=== PATIENT | female | born 1995 | race Caucasian/White ===

== ENCOUNTER → 2021-10-29 | Outpatient (CLI) | payer OTHER, SELFPAY ==
[2021-10-29 08:25] LABS: Hemoglobin A1c 5.1 % (3.8-5.6)
[2021-10-29 08:28] LABS: ALB/GLOB Ratio 0.7 RATIO (0.9-2.4); AST(SGOT) 18 U/L (15-37); Alanine Aminotransfer ALT/SGPT 33 U/L (13-56); Albumin, Serum 3.1 g/dL (3.2-5.0); Alkaline Phosphatase 86 U/L (45-117); Anion Gap 7 (5-15); BUN 12 mg/dL (7-18); BUN/Creat Ratio 18.4 RATIO (10-20); Calcium,Total 8.6 mg/dL (8.5-10.1); Chloride 106 mmol/L (98-107); Cholesterol 227 mg/dL (200); Creatinine, Serum 0.65 mg/dL (0.55-1.02); EST Glomerular Filtration Rate 117 mL/min (>60); Est Glom Filt Rate - Afr Amer 142 mL/min (>60); Globulin 4.3 g/dL (2.2-4.2); Glucose 98 mg/dL (74-106); High Density Lipoprotein 51 mg/dL; Potassium 3.9 mmol/L (3.5-5.1); Protein, Total 7.4 g/dL (6.4-8.2); Sodium Level 136 mmol/L (136-145); Thyroid Stim Hormone (TSH) 2.85 uIU/mL (0.358-3.74); Triglycerides 214 mg/dL; Very Low Density Lipoprotein 43 mg/dL (5-40)
[2021-10-29 09:22] LABS: Vitamin B12 420 pg/mL (211-911)
== END | disposition home or self-care (01) ==
PROVIDERS: PCP Physician Assistant Medical; Referring Provider Nurse Practitioner Family; Visit Provider Nurse Practitioner Family
DX: R73.02 Impaired glucose tolerance (oral) (principal); E78.00 Pure hypercholesterolemia, unspecified
CPT/HCPCS: 36415; 80053; 80061; 82607; 83036; 84443

== ENCOUNTER 2022-05-02 07:10 | Outpatient (CLI) | payer OTHER, SELFPAY ==
[2022-05-02 08:20] LABS: Absolute Lymphocyte Count 3.18 X10^3/uL (0.83-4.51); Absolute Neutrophil Count 5.4 X10^3/uL (2.0-7.7); Basophil# 0.08 X10^3/uL; Basophil% 0.9 % (0-1); Eosinophil# 0.25 X10^3/uL; Eosinophils% 2.7 % (0-5); Hemoglobin 12.5 g/dL (12.0-15.0); Lymphocyte # 3.18 X10^3/ul (0.83-4.51); Mean Corp Hgb Conc 32.9 g/dL (32-36); Mean Corpuscular Hgb 26.5 pg (27.0-32.0); Mean Corpuscular Volume 80.7 fL (81-99); Mean Platelet Vol. 11.4 fl (6.2-12.0); Monocyte# 0.44 X10^3/uL; Monocyte% 4.7 % (0-10); NRBC Flagged by Analyzer 0 % (0-5); Neutrophil # 5.37 X10^3/uL (2.7-7.7); Neutrophil % 57.5 % (47-70); Platelet Count 347 K/mm3 (150-450); RBC Distribution Width CV 13.5 % (11.6-14.6); RBC Distribution Width SD 39.4 fl (35.1-43.9); Red Blood Count 4.71 M/mm3 (4.2-5.4); White Blood Count 9.3 K/mm3 (4.4-11.0)
[2022-05-02 08:56] LABS: ALB/GLOB Ratio 0.7 RATIO (0.9-2.4); AST(SGOT) 8 U/L (15-37); Alanine Aminotransfer ALT/SGPT 21 U/L (13-56); Albumin, Serum 2.8 g/dL (3.2-5.0); Alkaline Phosphatase 74 U/L (45-117); Anion Gap 8 (5-15); BUN 13 mg/dL (7-18); BUN/Creat Ratio 23.1 RATIO (10-20); Calcium,Total 8.4 mg/dL (8.5-10.1); Chloride 104 mmol/L (98-107); Cholesterol 235 mg/dL (200); Creatinine, Serum 0.56 mg/dL (0.55-1.02); EST Glomerular Filtration Rate 138 mL/min (>60); Est Glom Filt Rate - Afr Amer 167 mL/min (>60); Ferritin 31 ng/mL (8-252); Globulin 4.2 g/dL (2.2-4.2); Glucose 98 mg/dL (74-106); High Density Lipoprotein 59 mg/dL; Iron 83 ug/dL (50-170); Iron Binding Capacity,Total 388 ug/dL (250-450); Potassium 3.8 mmol/L (3.5-5.1); Sodium Level 138 mmol/L (136-145); Triglycerides 169 mg/dL; Very Low Density Lipoprotein 34 mg/dL (5-40)
[2022-05-02 08:59] LABS: Vitamin B12 454 pg/mL (211-911)
== END 2022-05-02 23:59 | disposition home or self-care (01) ==
LOC: LAB 07:12
PROVIDERS: PCP Physician Assistant Medical; Referring Provider Physician Assistant Medical; Visit Provider Physician Assistant Medical
DX: E78.00 Pure hypercholesterolemia, unspecified (principal); I10 Essential (primary) hypertension; E53.8 Deficiency of other specified B group vitamins; R79.0 Abnormal level of blood mineral
CPT/HCPCS: 36415; 80053; 80061; 82607; 82728; 83540; 83550; 85025

== ENCOUNTER 2022-09-03 19:11 | Emergency (ER) | payer OTHER, SELFPAY ==
[2022-09-03 19:12] VITALS: BP 162/107; PULSE 110; RESP 20; TEMP 36.4; O2SAT 97; BMI 60.0
[2022-09-03] MEDS: Mag Hydrox/Al Hydrox/Simeth 30 ML UDC PO (21:02)
[2022-09-03] MEDS: Ondansetron 4 MG/2 ML Vial IV (21:03)
[2022-09-03] MEDS: 0.9% Normal Saline 1,000 ML 150 ML IV (21:03)
[2022-09-03 21:05] LABS: Absolute Lymphocyte Count 2.15 X10^3/uL (0.83-4.51); Absolute Neutrophil Count 3.1 X10^3/uL (2.0-7.7); Basophil# 0.03 X10^3/uL; Basophil% 0.5 % (0-1); Eosinophil# 0.23 X10^3/uL; Eosinophils% 3.8 % (0-5); Hematocrit 37.3 % (37-47); Hemoglobin 12.4 g/dL (12.0-15.0); Lymphocyte # 2.15 X10^3/ul (0.83-4.51); Lymphocyte % 35.7 % (19-41); Mean Corp Hgb Conc 33.2 g/dL (32-36); Mean Corpuscular Hgb 26.9 pg (27.0-32.0); Mean Corpuscular Volume 80.9 fL (81-99); Mean Platelet Vol. 10.9 fl (6.2-12.0); Monocyte# 0.53 X10^3/uL; Monocyte% 8.8 % (0-10); NRBC Flagged by Analyzer 0 % (0-5); Neutrophil # 3.07 X10^3/uL (2.7-7.7); Platelet Count 272 K/mm3 (150-450); RBC Distribution Width CV 13.4 % (11.6-14.6); RBC Distribution Width SD 39.2 fl (35.1-43.9); Red Blood Count 4.61 M/mm3 (4.2-5.4)
[2022-09-03 21:11] VITALS: RESP 18
[2022-09-03 21:25] LABS: Internal QC Validated? YES +Cl - CLEAR BKGD; Pregnancy, Serum, hCG Quali. NEGATIVE Negative
[2022-09-03 21:26] LABS: AST(SGOT) 38 U/L (15-37); Alanine Aminotransfer ALT/SGPT 56 U/L (13-56); Albumin, Serum 2.9 g/dL (3.2-5.0); Alkaline Phosphatase 83 U/L (45-117); Anion Gap 6 (5-15); BUN 11 mg/dL (7-18); BUN/Creat Ratio 17.1 RATIO (10-20); Bilirubin, Direct 0.05 mg/dL (0.00-0.30); Calcium,Total 8.3 mg/dL (8.5-10.1); Chloride 110 mmol/L (98-107); Creatinine, Serum 0.64 mg/dL (0.55-1.02); EST Glomerular Filtration Rate 118 mL/min (>60); Est Glom Filt Rate - Afr Amer 143 mL/min (>60); Estimated Creatinine Clearance 119.86 ml/min; Globulin 3.9 g/dL (2.2-4.2); Glucose 87 mg/dL (74-106); Lipase 51 U/L (73-393); Potassium 3.7 mmol/L (3.5-5.1); Protein, Total 6.8 g/dL (6.4-8.2); Sodium Level 140 mmol/L (136-145)
--- NOTE | 2022-09-03 22:49 | EDS_ITS ---
HPI History of Present Illness Chief Complaint: Nausea/Vomiting/Diarrhea Informant: patient Onset/Context/Timing Onset: Days (4 days) Current Severity: Moderate Maximum Severity: Moderate Narrative Narrative: Patient presents with epigastric abdominal pain for the past 4 days along with diarrhea. She had some nausea but no vomiting. No fever noted. She is curren tly on omeprazole twice a day for reflux and states this is not helping. [facility] Medical History Acute bronchitis, unspecified Influenza A Home Medications dicyclomine 10 mg capsule 10 mg PO TID #30 caps 02/28/22 [Rx Last Taken Unknown] amoxicillin 875 mg-potassium clavulanate 125 mg tablet 1 tab PO BID #20 tabs 05/18/22 [Rx Last Taken Unknown] prednisone 10 mg tablet 10 mg PO BID #10 tabs 05/18/22 [Rx Last Taken Unknown] fluconazole 150 mg tablet 150 mg PO ONCE #1 TAB 06/01/22 [Rx Last Taken Unknown] metoclopramide HCl 5 mg tablet (Reglan) 5 mg PO TID PRN nausea and vomiting #30 tabs 09/02/22 [Rx Last Taken Unknown] ondansetron HCl 4 mg tablet 4 mg PO Q8H PRN nausea and vomiting #90 tabs 09/02/22 [Rx Last Taken Unknown] Allergy/AdvReac Type Severity Reaction Status Date / Time No Known Allergies Allergy Unverified 09/03/22 19:13 Surgical History History of appendectomy Social History Smoking Status: Never smoker ROS ROS ED Constitutional Constitutional ED: Denies chills or fever(s) Eyes Eyes: Denies change in vision or discharge from eye(s) ENT ENT ED: Denies discharge from eye(s), rhinorrhea or sore throat Cardiovascular Cardiovascular: Denies chest pain or palpitations Respiratory/Chest Respiratory/Chest: Denies cough or dyspnea Gastrointestinal Gastrointestinal: Reports abdominal pain, diarrhea and nausea; Denies vomiting Genitourinary Genitourinary ED: Denies dysuria Musculoskeletal Musculoskeletal: Denies back pain or extremity pain Integumentary Denies Abrasions or rash Neurologic Neurologic: Denies headache(s) or weakness Psychiatric Psychiatric: Denies anxiety or depression Allergic/Immunologic Allergic/Immunologic ED: Denies lip swelling or urticaria EXAM Physical Exam Const Vital Signs: 09/03/22 19:12 09/03/22 21:11 Temperature 97.6 F L Temperature Source Temporal Pulse Rate 110 H Respiratory Rate 20 H 18 Blood Pressure 162/107 H Blood Pressure Mean 125 Pulse Ox 97 Oxygen Delivery Method Room Air Positive well nourished and well developed General Appearance ED: well developed HEENT Reports normocephalic and head/scalp atraumatic Eyes PERRL and EOMs intact bilaterally Neck supple Chest Wall inspection of chest normal and palpation of chest normal Resp normal respiratory effort and clear to auscultation bilaterally Cardio regular rate and regular rhythm GI GI Narrative: Epigastric tenderness to palpation. No guarding or rebound. Hypoactive but present bowel sounds are noted. Palpation: soft Extremity normal to inspection Neuro oriented x3 and no sensory deficits noted Sensorium / Orientation: alert Motor Exam: strength 5/5 throughout Psych mental status grossly normal Skin no rashes or lesions noted MDM MDM MDM Narrative Medical decision making narrative: Patient is given Zofran for nausea along with a GI cocktail. Labwork obtained to evaluate for leukocytosis, anemia, and electrolyte derangement. Lab Data Attestation: I reviewed the patient's lab results. Labs: Laboratory Results - last 24 hr 09/03/22 09/03/22 09/03/22 20:56 20:56 20:56 WBC 6.0 RBC 4.61 Hgb 12.4 Hct 37.3 MCV 80.9 L MCH 26.9 L MCHC 33.2 RDW Std Deviation 39.2 RDW Coeff of Carey 13.4 Plt Count 272 MPV 10.9 Immature Gran % (Auto) 0.200 Neut % (Auto) 51.0 Lymph % (Auto) 35.7 [place] % (Auto) 8.8 Eos % (Auto) 3.8 Baso % (Auto) 0.5 Absolute Neuts (auto) 3.1 Absolute Lymphs (auto) 2.15 Nucleated RBC % 0 Sodium 140 Potassium 3.7 Chloride 110 H Carbon Dioxide 24.0 Anion Gap 6 BUN 11 Creatinine 0.64 Estim Creat Clear Calc 119.86 Est GFR (MDRD) Af Amer 143 Est GFR (MDRD) Non-Af 118 BUN/Creatinine Ratio 17.1 Glucose 87 Calcium 8.3 L Total Bilirubin 0.30 Direct Bilirubin 0.05 AST 38 H ALT 56 Alkaline Phosphatase 83 Total Protein 6.8 Albumin 2.9 L Globulin 3.9 Lipase 51 L Serum , Qual NEGATIVE Treatment and Re-Evaluation :: CBC and chemistry studies are unremarkable. LFTs and lipase normal. test is negative. Repeat evaluation patient does feel improved. She states she has some Zofran at home that she can take. She will continue her omeprazole. Discharge Plan Triage Chief Complaint: Nausea/Vomiting/Diarrhea ED Provider: Racheal Hernandez Dx/Rx/DC Orders Clinical Impression: Abdominal pain, epigastric Instructions: ED Epigastric Pain Uncertain Cause Prescriptions: No Action amoxicillin-pot clavulanate 875-125 mg tablet 1 tab PO BID Qty: 20 0RF prednisone 10 mg tablet 10 mg PO BID Qty: 10 0RF dicyclomine 10 mg capsule 10 mg PO TID Qty: 30 2RF Rx Instructions: take one to two capsules three times a day fluconazole 150 mg tablet 150 mg PO ONCE Qty: 1 0RF Rx Instructions: as a single dose metoclopramide HCl [Reglan] 5 mg tablet 5 mg PO TID PRN (Reason: nausea and vomiting) Qty: 30 2RF Rx Instructions: administer 30 minutes before meals ondansetron HCl 4 mg tablet 4 mg PO Q8H PRN (Reason: nausea and vomiting) Qty: 90 1RF Primary Care Provider: Oanh Taylor Referrals: Mark Schroeder DO [Med Staff - Active Staff] - 1-2 Weeks Oanh Taylor PA [Primary Care Provider] - 1 Week Disposition Disposition: Home, Self Care Discharge Date/Time: 09/03/22 22:58
== END 2022-09-03 22:58 | disposition home or self-care (01) ==
PROVIDERS: Emergency Provider Emergency Medicine; PCP Physician Assistant Medical; Visit Provider Emergency Medicine
DX: R10.13 Epigastric pain (principal); R19.7 Diarrhea, unspecified; R11.0 Nausea
CPT/HCPCS: 80048; 80076; 83690; 84703; 85025; 96361; 96374; 99283; J7030; A4216; J2405

== ENCOUNTER → 2022-09-16 | Outpatient (CLI) | payer OTHER, SELFPAY ==
[2022-09-16 12:18] LABS: Erythrocyte Sedimentation Rate 31 mm/hr (0-30)
[2022-09-16 12:50] LABS: LDH 178 U/L (84-246)
[2022-09-19 15:07] LABS: Endomysial Antibody IgA Negative (Negative); Immunoglobulin A 145 mg/dL (87-352); t-Transglutaminase IgA <2 U/mL (0-3)
[2022-09-21 08:11] LABS: Cytoplasmic Ab (C-ANCA) <1:20 titer (Neg:<1:20); Immunoglobulin A 142 mg/dL (87-352); Immunoglobulin E 27 IU/mL (6-495); Immunoglobulin G 1007 mg/dL (586-1602); Immunoglobulin M 87 mg/dL (26-217); Perinuclear Ab (P-ANCA) <1:20 titer (Neg:<1:20)
[2022-09-21 09:09] LABS: Anti-Centromere B Ab <0.2 AI (0.0-0.9); Anti-Chromatin <0.2 AI (0.0-0.9); Anti-Jo <0.2 AI (0.0-0.9); Anti-Scleroderma-70 AB <0.2 AI (0.0-0.9); Anti-dsDNA Ab <1 IU/mL (0-9); Beef <0.10 kU/L (Class 0); Chocolate <0.10 kU/L (Class 0); Corn <0.10 kU/L (Class 0); Egg, Whole <0.10 kU/L (Class 0); Milk (Cow) <0.10 kU/L (Class 0); Peanut <0.10 kU/L (Class 0); Pork <0.10 kU/L (Class 0); RNP Ab <0.2 AI (0.0-0.9); SJOGREN'S Anti-SS-A test < 0.2 AI (0.0-0.9); SJOGREN'S Anti-SS-B test < 0.2 AI (0.0-0.9); Smith Ab <0.2 AI (0.0-0.9); Soybean <0.10 kU/L (Class 0); Wheat <0.10 kU/L (Class 0)
[2022-09-22 16:09] LABS: Calprotectin, Stool 66 ug/g (0-120)
[2022-09-23 00:07] LABS: H. PYLORI STOOL AG Negative (Negative); Pancreatic Elastase, Fecal > 500 (>200)
== END | disposition home or self-care (01) ==
LOC: LAB 11:57
PROVIDERS: PCP Physician Assistant Medical; Referring Provider Internal Medicine Gastroenterology; Visit Provider Internal Medicine Gastroenterology
DX: K58.9 Irritable bowel syndrome, unspecified (principal); R10.9 Unspecified abdominal pain
CPT/HCPCS: 36415; 82653; 82784; 82785; 83516; 83615; 83630; 83993; 85652; 86003; 86005; 86140; 86225; 86235; 86255; 86256; 87177; 87209; 87329; 87338; 87506

== ENCOUNTER → 2022-10-10 | Outpatient (CLI) | payer OTHER, SELFPAY ==
--- NOTE | 2022-10-10 07:01 | CT_ITS ---
STUDY: CT ABDOMEN AND PELVIS WITH CONTRAST REASON FOR EXAM: Female, 27 years old. Upper abdominal pain. RADIATION DOSAGE (If Supplied By Facility): CTDIvol = ( 17.07 ) mGy, DLP = ( 1261.41 ) mGycm TECHNIQUE: Transaxial images were obtained from the dome of the diaphragm to the symphysis pubis without oral contrast. IV 100mL Isovue-300 was administered. Sagittal and coronal images were reconstructed. Individualized dose optimization techniques were used for this CT. COMPARISON: None. FINDINGS: The visualized lung bases are unremarkable. The visualized portions of the heart are within normal limits. Normal liver. Normal gallbladder and extrahepatic biliary system. Borderline splenomegaly. Normal pancreas. Normal bilateral adrenal glands. Normal right kidney. Normal left kidney. There is a small hiatal hernia. Normal small intestine. Normal colon. There are surgical clips in the region of the appendix consistent with a prior appendectomy. Normal abdominal aorta. Normal inferior vena cava. Normal retroperitoneum. Normal urinary bladder. Small lymph nodes are seen in the inguinal regions bilaterally. Normal abdominal wall. Mild degree of degenerative changes at the L4-L5 level. CT/Abdomen/Pelvis WITH Contrast IMPRESSION: Borderline splenomegaly. No acute abnormality is seen. Electronically Signed: Miguel Angel Jara MD at 13:47 EDT ,
[2022-10-10 07:31] LABS: CREATININE FINGERSTICK 0.9 mg/dL (0.55-1.02); EGFR FINGERSTICK > 60.0000 mL/min (>60)
== END | disposition home or self-care (01) ==
LOC: CT 07:00
PROVIDERS: PCP Physician Assistant Medical; Referring Provider Internal Medicine Gastroenterology; Visit Provider Internal Medicine Gastroenterology
DX: R10.9 Unspecified abdominal pain (principal)
CPT/HCPCS: 74177; Q9967

== ENCOUNTER → 2022-10-17 | Outpatient (CLI) | payer OTHER, SELFPAY ==
[2022-10-17 16:14] LABS: Absolute Lymphocyte Count 2.26 X10^3/uL (0.83-4.51); Absolute Neutrophil Count 4.2 X10^3/uL (2.0-7.7); Basophil# 0.06 X10^3/uL; Basophil% 0.8 % (0-1); Eosinophils% 2.6 % (0-5); Hematocrit 38.3 % (37-47); Hemoglobin 12.3 g/dL (12.0-15.0); Lymphocyte # 2.26 X10^3/ul (0.83-4.51); Lymphocyte % 29.5 % (19-41); Mean Corp Hgb Conc 32.1 g/dL (32-36); Mean Corpuscular Hgb 26.5 pg (27.0-32.0); Mean Corpuscular Volume 82.5 fL (81-99); Monocyte# 0.88 X10^3/uL; Monocyte% 11.5 % (0-10); NRBC Flagged by Analyzer 0 % (0-5); Neutrophil # 4.23 X10^3/uL (2.7-7.7); Neutrophil % 55.3 % (47-70); Platelet Count 313 K/mm3 (150-450); RBC Distribution Width CV 13.4 % (11.6-14.6); RBC Distribution Width SD 40.1 fl (35.1-43.9); Red Blood Count 4.64 M/mm3 (4.2-5.4); White Blood Count 7.7 K/mm3 (4.4-11.0)
[2022-10-24 14:08] LABS: CMV Acute Antibody IgM < 30.0 AU/mL (0.0-29.9); CMV Antibody IgG < 0.60 U/mL (0.00-0.59); CMV by PCR Negative (Negative); H. Pylori Antibody (IgG) 0.15 (0.00-0.79)
== END | disposition home or self-care (01) ==
PROVIDERS: PCP Physician Assistant Medical; Referring Provider Internal Medicine Gastroenterology; Visit Provider Internal Medicine Gastroenterology
DX: R10.9 Unspecified abdominal pain (principal)
CPT/HCPCS: 36415; 85025; 86644; 86645; 86677; 87496

== ENCOUNTER → 2022-10-31 | Outpatient (CLI) | payer OTHER, SELFPAY ==
[2022-10-31 07:31] LABS: Absolute Lymphocyte Count 3.89 X10^3/uL (0.83-4.51); Basophil# 0.07 X10^3/uL; Basophil% 0.6 % (0-1); Eosinophil# 0.26 X10^3/uL; Eosinophils% 2.4 % (0-5); Hematocrit 40.5 % (37-47); Hemoglobin 13.1 g/dL (12.0-15.0); Lymphocyte # 3.89 X10^3/ul (0.83-4.51); Lymphocyte % 35.3 % (19-41); Mean Corp Hgb Conc 32.3 g/dL (32-36); Mean Corpuscular Hgb 26.6 pg (27.0-32.0); Mean Corpuscular Volume 82.3 fL (81-99); Mean Platelet Vol. 11.3 fl (6.2-12.0); Monocyte# 0.76 X10^3/uL; Monocyte% 6.9 % (0-10); NRBC Flagged by Analyzer 0 % (0-5); Neutrophil # 6.01 X10^3/uL (2.7-7.7); Neutrophil % 54.5 % (47-70); Platelet Count 324 K/mm3 (150-450); RBC Distribution Width CV 13.2 % (11.6-14.6); RBC Distribution Width SD 39.3 fl (35.1-43.9); Red Blood Count 4.92 M/mm3 (4.2-5.4)
[2022-10-31 08:27] LABS: ALB/GLOB Ratio 0.7 RATIO (0.9-2.4); AST(SGOT) 12 U/L (15-37); Alanine Aminotransfer ALT/SGPT 23 U/L (13-56); Alkaline Phosphatase 75 U/L (45-117); Anion Gap 6 (5-15); BUN 15 mg/dL (7-18); BUN/Creat Ratio 24.8 RATIO (10-20); Chloride 109 mmol/L (98-107); Cholesterol 256 mg/dL (200); EST Glomerular Filtration Rate 127 mL/min (>60); Est Glom Filt Rate - Afr Amer 154 mL/min (>60); Globulin 4.3 g/dL (2.2-4.2); Glucose 102 mg/dL (74-106); High Density Lipoprotein 45 mg/dL; Potassium 3.8 mmol/L (3.5-5.1); Protein, Total 7.3 g/dL (6.4-8.2); Sodium Level 139 mmol/L (136-145); Thyroid Stim Hormone (TSH) 1.96 uIU/mL (0.358-3.74); Triglycerides 258 mg/dL; Very Low Density Lipoprotein 52 mg/dL (5-40); Vitamin B12 503 pg/mL (211-911)
== END | disposition home or self-care (01) ==
LOC: LAB 06:30
PROVIDERS: PCP Physician Assistant Medical; Referring Provider Physician Assistant Medical; Visit Provider Physician Assistant Medical
DX: R73.02 Impaired glucose tolerance (oral) (principal); E53.8 Deficiency of other specified B group vitamins; E78.00 Pure hypercholesterolemia, unspecified; I10 Essential (primary) hypertension
CPT/HCPCS: 36415; 80053; 80061; 82607; 83036; 84443; 85025

== ENCOUNTER → 2022-11-09 | Outpatient (CLI) | payer OTHER, SELFPAY ==
--- NOTE | 2022-11-09 09:51 | NM_ITS ---
CLINICAL: 27-year-old female with history of abdominal pain. RADIONUCLIDE HEPATOBILIARY SCINTIGRAPHY COMPARISON: CT of the abdomen-pelvis report 10/10/2022 FINDINGS: Following the intravenous administration of 5.8 mCi of 99m Tc Mebrofenin, hepatobiliary images reveal:. 1. Relatively prompt and homogeneous radiopharmaceutical concentration is noted by a normal sized liver. No parenchymal defects are identified. 2. Gallbladder activity is identified at 45 minutes post radiopharmaceutical administration. 3. Small intestinal tract is observed at 10 minutes following tracer injection. 4. Washout of the radiopharmaceutical by the hepatic parenchyma appears qualitatively normal. Cholecystokinin (0.02 ug/kg) was administered intravenously over a 30-minute period. The post CCK gallbladder ejection fraction calculated at 20 minutes following Cholecystokinin administration was noted to be 52 % (normal greater than 35%). During 30 minutes of post CCK imaging, there is scintigraphic evidence of refilling of the gallbladder. NM/Hepatobilliary Img w/Pharm Int IMPRESSION: 1. A gallbladder ejection fraction calculated to be greater than 35% following the administration of Cholecystokinin makes the probability of functional hepatobiliary disease (gallbladder dyskinesia) and/or organic hepatobiliary disease (chronic acalculous cholecystitis and/or cystic duct syndrome) to be low. (Naye Byers et al, Journal of Nuclear Medicine 32:1695, 1991). 2. A normal gallbladder ejection fraction with refilling of the gallbladder following CCK administration may represent the presence of Sphincter of Oddi dysfunction. Correlation with Sphincter of Oddi manometry may be of benefit. (Kaiden and Kaiden, J Nucl Med 38:1824, 1997). Electronically Signed: Mitch Barrientos, at 21:14 EDT ,
== END | disposition home or self-care (01) ==
LOC: NM 09:50
PROVIDERS: PCP Physician Assistant Medical; Referring Provider Internal Medicine Gastroenterology; Visit Provider Internal Medicine Gastroenterology
DX: R10.9 Unspecified abdominal pain (principal)
CPT/HCPCS: 78227; A9537; J2805

== ENCOUNTER → 2023-05-17 | Outpatient (CLI) | payer OTHER, SELFPAY ==
[2023-05-17 07:06] LABS: Absolute Lymphocyte Count 2.22 X10^3/uL (0.83-4.51); Absolute Neutrophil Count 7.3 X10^3/uL (2.0-7.7); Basophil# 0.06 X10^3/uL; Basophil% 0.6 % (0-1); Eosinophils% 1.9 % (0-5); Hematocrit 37.4 % (37-47); Lymphocyte # 2.22 X10^3/ul (0.83-4.51); Lymphocyte % 21.6 % (19-41); Mean Corp Hgb Conc 32.1 g/dL (32-36); Mean Corpuscular Volume 81.1 fL (81-99); Mean Platelet Vol. 10.7 fl (6.2-12.0); Monocyte# 0.45 X10^3/uL; Monocyte% 4.4 % (0-10); NRBC Flagged by Analyzer 0 % (0-5); Neutrophil % 71.2 % (47-70); Platelet Count 327 K/mm3 (150-450); RBC Distribution Width CV 13.5 % (11.6-14.6); RBC Distribution Width SD 39.6 fl (35.1-43.9); Red Blood Count 4.61 M/mm3 (4.2-5.4); White Blood Count 10.3 K/mm3 (4.4-11.0)
[2023-05-17 07:24] LABS: ALB/GLOB Ratio 0.9 RATIO (0.9-2.4); AST(SGOT) 20 U/L (15-37); Alanine Aminotransfer ALT/SGPT 34 U/L (13-56); Albumin, Serum 3.6 g/dL (3.2-5.0); Alkaline Phosphatase 92 U/L (45-117); Anion Gap 1 (5-15); BUN 10 mg/dL (7-18); Calcium,Total 8.8 mg/dL (8.5-10.1); Chloride 106 mmol/L (98-107); Cholesterol 198 mg/dL (200); Creatinine, Serum 0.62 mg/dL (0.55-1.02); EST Glomerular Filtration Rate 122 mL/min (>60); Est Glom Filt Rate - Afr Amer 147 mL/min (>60); Ferritin 22 ng/mL (8-252); Globulin 3.8 g/dL (2.2-4.2); Glucose 119 mg/dL (74-106); High Density Lipoprotein 45 mg/dL; Iron 52 ug/dL (50-170); Iron Binding Capacity,Total 352 ug/dL (250-450); PERCENT IRON SATURATION 14.8 % (15.0-55.0); Potassium 4.3 mmol/L (3.5-5.1); Protein, Total 7.4 g/dL (6.4-8.2); Sodium Level 137 mmol/L (136-145); Triglycerides 86 mg/dL; Very Low Density Lipoprotein 17 mg/dL (5-40)
[2023-05-17 08:23] LABS: Hemoglobin A1c 5.1 % (3.8-5.6)
[2023-05-17 08:34] LABS: Vitamin B12 397 pg/mL (211-911)
== END | disposition home or self-care (01) ==
LOC: LAB 06:48
PROVIDERS: PCP Physician Assistant Medical; Referring Provider Physician Assistant Medical; Visit Provider Physician Assistant Medical
DX: R73.02 Impaired glucose tolerance (oral) (principal); E53.8 Deficiency of other specified B group vitamins; E78.00 Pure hypercholesterolemia, unspecified; R79.0 Abnormal level of blood mineral
CPT/HCPCS: 36415; 80053; 80061; 82607; 82728; 83036; 83540; 83550; 83735; 85025

== ENCOUNTER → 2023-12-14 | Outpatient (CLI) | payer OTHER, SELFPAY ==
[2023-12-14 07:50] LABS: Absolute Lymphocyte Count 2.54 X10^3/uL (0.83-4.51); Absolute Neutrophil Count 5.9 X10^3/uL (2.0-7.7); Basophil# 0.06 X10^3/uL; Basophil% 0.6 % (0-1); Eosinophil# 0.18 X10^3/uL; Eosinophils% 1.9 % (0-5); Hematocrit 37.7 % (37-47); Hemoglobin 11.9 g/dL (12.0-15.0); Lymphocyte # 2.54 X10^3/ul (0.83-4.51); Lymphocyte % 27.5 % (19-41); Mean Corp Hgb Conc 31.6 g/dL (32-36); Mean Corpuscular Hgb 24.9 pg (27.0-32.0); Mean Platelet Vol. 11.4 fl (6.2-12.0); Monocyte# 0.49 X10^3/uL; Monocyte% 5.3 % (0-10); NRBC Flagged by Analyzer 0 % (0-5); Neutrophil # 5.92 X10^3/uL (2.7-7.7); Neutrophil % 64.2 % (47-70); Platelet Count 315 K/mm3 (150-450); RBC Distribution Width SD 40.3 fl (35.1-43.9); Red Blood Count 4.77 M/mm3 (4.2-5.4); White Blood Count 9.2 K/mm3 (4.4-11.0)
[2023-12-14 08:23] LABS: Vitamin B12 339 pg/mL (211-911)
[2023-12-14 08:29] LABS: ALB/GLOB Ratio 0.8 RATIO (0.9-2.4); AST(SGOT) 12 U/L (15-37); Alanine Aminotransfer ALT/SGPT 22 U/L (13-56); Albumin, Serum 3.2 g/dL (3.2-5.0); Alkaline Phosphatase 76 U/L (45-117); Anion Gap 7 (5-15); BUN 10 mg/dL (7-18); BUN/Creat Ratio 16.3 RATIO (10-20); Calcium,Total 8.6 mg/dL (8.5-10.1); Chloride 106 mmol/L (98-107); Cholesterol 223 mg/dL (200); Creatinine, Serum 0.62 mg/dL (0.55-1.02); EST Glomerular Filtration Rate 123 mL/min (>60); Est Glom Filt Rate - Afr Amer 149 mL/min (>60); Ferritin 10 ng/mL (8-252); Glucose 109 mg/dL (74-106); High Density Lipoprotein 47 mg/dL; Iron 51 ug/dL (50-170); Iron Binding Capacity,Total 429 ug/dL (250-450); PERCENT IRON SATURATION 11.9 % (15.0-55.0); Potassium 3.9 mmol/L (3.5-5.1); Protein, Total 7.2 g/dL (6.4-8.2); Sodium Level 138 mmol/L (136-145); T4 Free Direct 1.06 ng/dL (0.76-1.46); Thyroid Stim Hormone (TSH) 2.68 uIU/mL (0.358-3.74); Triglycerides 144 mg/dL; Very Low Density Lipoprotein 29 mg/dL (5-40)
[2023-12-14 17:07] LABS: Hemoglobin A1c 5.2 % (3.8-5.6)
== END | disposition home or self-care (01) ==
LOC: LAB 06:49
PROVIDERS: PCP Physician Assistant Medical; Referring Provider Physician Assistant Medical; Visit Provider Physician Assistant Medical
DX: E78.00 Pure hypercholesterolemia, unspecified (principal); R73.02 Impaired glucose tolerance (oral); R79.0 Abnormal level of blood mineral; R79.89 Other specified abnormal findings of blood chemistry
CPT/HCPCS: 36415; 80053; 80061; 82607; 82728; 83036; 83540; 83550; 83735; 84439; 84443; 85025

== ENCOUNTER → 2024-06-17 | Outpatient (CLI) | payer OTHER, SELFPAY ==
[2024-06-17 06:54] LABS: Absolute Neutrophil Count 6.9 X10^3/uL (2.0-7.7); Basophil# 0.05 X10^3/uL; Basophil% 0.5 % (0-1); Eosinophil# 0.23 X10^3/uL; Eosinophils% 2.2 % (0-5); Hematocrit 37.3 % (37-47); Hemoglobin 12.2 g/dL (12.0-15.0); Lymphocyte % 26.5 % (19-41); Mean Corp Hgb Conc 32.7 g/dL (32-36); Mean Corpuscular Hgb 26.5 pg (27.0-32.0); Mean Corpuscular Volume 80.9 fL (81-99); Mean Platelet Vol. 11.3 fl (6.2-12.0); Monocyte# 0.51 X10^3/uL; Monocyte% 4.8 % (0-10); NRBC Flagged by Analyzer 0 % (0-5); Neutrophil # 6.94 X10^3/uL (2.7-7.7); Neutrophil % 65.6 % (47-70); Platelet Count 300 K/mm3 (150-450); RBC Distribution Width CV 13.7 % (11.6-14.6); Red Blood Count 4.61 M/mm3 (4.2-5.4); White Blood Count 10.6 K/mm3 (4.4-11.0)
[2024-06-17 07:22] LABS: ALB/GLOB Ratio 0.8 RATIO (0.9-2.4); AST(SGOT) 9 U/L (15-37); Alanine Aminotransfer ALT/SGPT 16 U/L (13-56); Albumin, Serum 3.1 g/dL (3.2-5.0); Alkaline Phosphatase 95 U/L (45-117); Anion Gap 5 (5-15); BUN 13 mg/dL (7-18); BUN/Creat Ratio 19.7 RATIO (10-20); Calcium,Total 8.9 mg/dL (8.5-10.1); Chloride 107 mmol/L (98-107); Cholesterol 228 mg/dL (200); Creatinine, Serum 0.66 mg/dL (0.55-1.02); EST Glomerular Filtration Rate 113 mL/min (>60); Est Glom Filt Rate - Afr Amer 137 mL/min (>60); Ferritin 19 ng/mL (8-252); Globulin 3.8 g/dL (2.2-4.2); Glucose 113 mg/dL (74-106); High Density Lipoprotein 52 mg/dL; Iron 64 ug/dL (50-170); Iron Binding Capacity,Total 408 ug/dL (250-450); Magnesium 1.9 mg/dL (1.6-2.6); PERCENT IRON SATURATION 15.7 % (15.0-55.0); Protein, Total 6.9 g/dL (6.4-8.2); Sodium Level 139 mmol/L (136-145); Triglycerides 170 mg/dL; Very Low Density Lipoprotein 34 mg/dL (5-40)
[2024-06-17 07:52] LABS: Hemoglobin A1c 5.4 % (3.8-5.6)
[2024-06-17 08:46] LABS: Vitamin B12 683 pg/mL (211-911)
== END | disposition home or self-care (01) ==
LOC: LAB 06:32
PROVIDERS: PCP Physician Assistant Medical; Referring Provider Physician Assistant Medical; Visit Provider Physician Assistant Medical
DX: R79.89 Other specified abnormal findings of blood chemistry (principal); I10 Essential (primary) hypertension; R73.02 Impaired glucose tolerance (oral); R79.0 Abnormal level of blood mineral; E78.00 Pure hypercholesterolemia, unspecified
CPT/HCPCS: 36415; 80053; 80061; 82607; 82728; 83036; 83540; 83550; 83735; 85025

== ENCOUNTER 2024-07-22 17:19 | Inpatient (IN) | payer OTHER, SELFPAY ==
[2024-07-22] VITALS (19 sets, daily range): BP systolic 97–193; BP diastolic 71–169; PULSE 66–156; RESP 15–22; TEMP 36.7–36.8; O2SAT 96–99; BMI 62.9; BMI 62.8
--- NOTE | 2024-07-22 17:24 | EKG12_ITS ---
Test Reason : PALPS Blood Pressure : */* mmHG Vent. Rate : 164 BPM Atrial Rate : * BPM P-R Int : * ms QRS Dur : 74 ms QT Int : 266 ms P-R-T Axes : * 37 17 degrees QTcB Int : 439 ms Critical Test Result: High HR Atrial fibrillation with rapid ventricular response with premature ventricular or aberrantly conducted complexes Nonspecific ST abnormality Abnormal ECG Confirmed by Danial Hernández ([id number]), web content editor JUAN PABLO CARLSON ([id number]) on 07/24/2024 8:03:56 AM Referred By: Confirmed By: Danial Hernández
--- NOTE | 2024-07-22 17:42 | RAD_ITS ---
PROCEDURE: Portable upright chest radiograph, one view REASON FOR EXAM: Chest pain TECHNIQUE: Portable upright chest radiograph was obtained. COMPARISON: None. FINDINGS: The cardiomediastinal silhouette is within normal limits. Monitoring leads overlie the chest. Bones are intact. Mild elevation right hemidiaphragm. No focal airspace consolidation, pneumothorax, or pleural effusion. The left retrocardiac region is not well evaluated. RAD/Chest 1 View (Portable) IMPRESSION: No definite acute cardiopulmonary process. If there is persistent pain or clin ical concern, short-term follow-up chest CT evaluation may be considered. Reading Location: [facility]
[2024-07-22 17:44] LABS: Absolute Lymphocyte Count 4.31 X10^3/uL (0.83-4.51); Absolute Neutrophil Count 6.7 X10^3/uL (2.0-7.7); Basophil# 0.07 X10^3/uL; Basophil% 0.6 % (0-1); Eosinophil# 0.23 X10^3/uL; Eosinophils% 1.9 % (0-5); Hematocrit 41.1 % (37-47); Hemoglobin 13.5 g/dL (12.0-15.0); Lymphocyte # 4.31 X10^3/ul (0.83-4.51); Lymphocyte % 35.9 % (19-41); Mean Corp Hgb Conc 32.8 g/dL (32-36); Mean Corpuscular Hgb 26.3 pg (27.0-32.0); Mean Corpuscular Volume 80.1 fL (81-99); Mean Platelet Vol. 11.5 fl (6.2-12.0); Monocyte# 0.67 X10^3/uL; Monocyte% 5.6 % (0-10); NRBC Flagged by Analyzer 0 % (0-5); Neutrophil # 6.67 X10^3/uL (2.7-7.7); Neutrophil % 55.7 % (47-70); Platelet Count 382 K/mm3 (150-450); RBC Distribution Width CV 13.9 % (11.6-14.6); RBC Distribution Width SD 40.4 fl (35.1-43.9); Red Blood Count 5.13 M/mm3 (4.2-5.4)
[2024-07-22 17:53] LABS: Anion Gap 8 (5-15); BUN 11 mg/dL (7-18); BUN/Creat Ratio 15.3 RATIO (10-20); Calcium,Total 9.3 mg/dL (8.5-10.1); Chloride 106 mmol/L (98-107); Creatinine, Serum 0.72 mg/dL (0.55-1.02); EST Glomerular Filtration Rate 102 mL/min (>60); Est Glom Filt Rate - Afr Amer 124 mL/min (>60); Estimated Creatinine Clearance 188.93 ml/min; Glucose 89 mg/dL (74-106); Potassium 3.9 mmol/L (3.5-5.1); Sodium Level 137 mmol/L (136-145); Troponin-I HS (w/2H Reflex) 7 pg/mL (3.0-54.0)
[2024-07-22] MEDS: Metoprolol Tartrate 5 MG/5 ML Vial IV ×2 (17:54→18:35)
--- NOTE | 2024-07-22 18:03 | CT_ITS ---
PROCEDURE: CT angiogram of the chest with IV contrast. REASON FOR EXAM: Atrial fibrillation, shortness of breath. TECHNIQUE: After the intravenous administration of 100 cc Isovue 370 IV contrast, contiguous axial CT images were obtained through the chest. Sagittal and coronal reformats were created. Sagittal and coronal reformats were created. Maximum intensity projection images were created and reviewed. COMPARISON: Chest radiograph from the same day. No prior chest CT. FINDINGS: Mild elevation right hemidiaphragm. There are mild/moderate degenerative changes in the mid to lower thoracic spine. Bones of the thorax otherwise intact. No displaced rib fractures. Included upper abdominal structures show no specific abnormality. Heart is not enlarged. No sizable pericardial effusion. Thoracic aorta normal in caliber without gross evidence for dissection. Origins of the arch vessels appear patent. The included thyroid and breast tissue are unremarkable. No thoracic adenopathy. No pulmonary arterial filling defect. Central airway is clear. No focal airspace consolidation, pneumothorax, or pleural effusion. Evaluation of the lungs is limited due to respiratory artifact. No dominant pulmonary parenchymal nodule. CT/CTA Chest W/WO Contrast IMPRESSION: No acute findings in the chest. No pulmonary embolism or evidence of thoracic aortic dissection. Lungs are grossly clear, although evaluation is limited due to respiratory hola on. No thoracic adenopathy. One or more dose reduction techniques were used (e.g., Automated exposure contr ol, adjustment of the mA and/or kV according to patient size, use of iterative reconstruction technique). Reading Location: [facility]
--- NOTE | 2024-07-22 18:39 | EX.ED.DYSGE1 ---
HPI History of Present Illness Chief Complaint: Palpitations Narrative Narrative: Patient is a 21-year-old female with past medical history of hypertension who presented to the emergency department with a chief complaint of palpitations and shortness of breath. Patient states that over the weekend she had the sensation that her heart was racing in her chest and states that it has been persistent and feels that has gotten worse prompting her to come here for the valuation management. Patient states that she does have some shortness of breath with exertion. Patient states that she is on control denies any other hormonal replacement therapies. Patient states that she did travel to a concert over the weekend to [place] and then recently again to [place]. Patient denies any history of blood clots. [facility] Medical History Acute bronchitis, unspecified Influenza A Home Medications ?Medication ?Instructions ?Recorded ?Last Taken ?Type buspirone 30 mg tablet 30 mg PO BID 07/22/24 Unknown History clotrimazole-betamethasone 1 1 applic topical BID PRN PRN rash 07/22/24 Unknown History %-0.05 % topical cream cyanocobalamin (vitamin B-12) 1,000 mcg PO DAILY 07/22/24 Unknown History 1,000 mcg tablet lisdexamfetamine 30 mg capsule 30 mg PO DAILY 07/22/24 Unknown History losartan 50 mg tablet 50 mg PO BID 07/22/24 Unknown History omeprazole 20 mg capsule,delayed 20 mg PO BID 07/22/24 Unknown History release vilazodone 20 mg tablet 20 mg PO DAILY 07/22/24 Unknown History Allergy/AdvReac Type Severity Reaction Status Date / Time No Known Allergies Allergy Verified 07/22/24 17:20 Surgical History History of appendectomy Social History household members: significant other housing: house Smoking Status: Never smoker ROS ROS ED ROS Narrative Constitutional: Denies fevers, chills, lightness, dizziness Eyes: Denies change in vision double vision blurry vision Cardiovascular: Denies chest pain complains of palpitations as noted above Respiratory: Complains of shortness of breath denies coughing Abdomen: Denies abdominal pain nausea vomit diarrhea : Denies any urinary symptoms Neurological: Denies any numbness, weakness, tingling Musculoskeletal: Denies back pain Skin: Denies rashes or lesions EXAM Physical Exam Narrative Exam Narrative: General: Patient lying in bed rest comfortably did not appear to be in acute distress Head: Atraumatic, normocephalic Eyes: PERRL bilaterally, EOMI bilaterally, no conjunctival injection noted Neck: Soft, supple, trachea midline Cardiovascular: Patient had a irregular irregular rhythm and tachycardia noted no murmurs gallops rubs noted Respiratory: Clear to auscultation bilaterally Abdomen: No tenderness palpation Extremities: +5/5 strength noted in the bilateral upper and lower extremities no pedal edema on exam Neurological: Patient following commands knew that she was at [facility] year is 2024 Skin: Warm, dry, intact no rashes or lesions noted Const Vital Signs: 07/22/24 17:20 07/22/24 17:39 07/22/24 17:55 Temperature 98.1 F Temperature Source Oral Pulse Rate 66 156 H Respiratory Rate 16 Blood Pressure 175/158 H 193/167 H Blood Pressure Mean 163 175 Blood Pressure Source Blood Pressure Position Blood Pressure Location Pulse Ox 99 98 98 Oxygen Delivery Method Room Air Room Air 07/22/24 17:58 07/22/24 18:19 07/22/24 18:40 Temperature Temperature Source Pulse Rate 147 H 156 H 151 H Respiratory Rate 16 Blood Pressure 179/169 H 128/81 H 105/76 Blood Pressure Mean 172 96 85 Blood Pressure Source Blood Pressure Position Blood Pressure Location Pulse Ox 98 Oxygen Delivery Method 07/22/24 18:49 07/22/24 19:00 07/22/24 19:48 Temperature Temperature Source Pulse Rate 147 H 147 H 141 H Respiratory Rate Blood Pressure 118/78 131/98 H 120/93 H Blood Pressure Mean 91 109 102 Blood Pressure Source Blood Pressure Position Blood Pressure Location Pulse Ox 98 98 Oxygen Delivery Method 07/22/24 19:53 07/22/24 20:00 07/22/24 20:00 Temperature Temperature Source Pulse Rate 105 H 119 H 139 H Respiratory Rate 18 19 H 17 Blood Pressure 97/71 111/71 111/71 Blood Pressure Mean 79 84 84 Blood Pressure Source Monitor Blood Pressure Position Semi-Fowlers Blood Pressure Location Right Forearm Pulse Ox 98 96 98 Oxygen Delivery Method Room Air 07/22/24 20:39 Temperature Temperature Source Pulse Rate 141 H Respiratory Rate 22 H Blood Pressure 135/91 H Blood Pressure Mean 105 Blood Pressure Source Monitor Blood Pressure Position Semi-Fowlers Blood Pressure Location Right Forearm Pulse Ox 99 Oxygen Delivery Method MDM MDM MDM Narrative Medical decision making narrative: Patient is a 21-year-old female who presented to the emerged part with chief complaint of palpitations and shortness of breath with exertion. On the differential diagnose includes but not limited to A-fib RVR, pulm and embolism, pneumonia, pneumothorax. Once workup is obtained reviewed she will be reevaluated. Patient was given 5 mg of IV Lopressor. Patient is EKG was sent Dr. Hernández who confirmed that she was in A-fib RVR. Patient remained in A-fib RVR after 5 Lopressor for second dose 5 IV Lopressor was given. Patient's CBC reviewed showed white blood count 12,000, hemoglobin 13.5, platelet count noted to be 382. Patient sodium was noted be 137, potassium normal 3.9, creatinine normal at 0.72. Patient's troponin noted to be 7 with a delta troponin noted to be 5. Patient's EKG reviewed showed atrial fibrillation with a rapid ventricular response with a rate of 164 bpm. Patient test negative. Patient's TSH normal at 3.10 Free T4 and T3 were 0.97 and 3.1 respectively. Patient chest x-ray reviewed by myself by radiology and showed no acute cardiopulmonary processes. Patient CTA of her chest reviewed showed no evidence of pulmonary embolism or dissection. Patient was given Cardizem bolus and placed on Cardizem drip given her persistent atrial fibrillation with rapid ventricular response she will require admission. Added on drug screen. Will discuss case with hospitalist. Discussed case with hospitalist Dr. Avendano who accept patient for admission. Patient will be given Lovenox. Patient was notified is agreeable spinal cord concerns answered. Lab Data Labs: Laboratory Results - last 24 hr 07/22/24 07/22/24 07/22/24 17:30 18:12 19:44 WBC 12.0 H RBC 5.13 Hgb 13.5 Hct 41.1 MCV 80.1 L MCH 26.3 L MCHC 32.8 RDW Std Deviation 40.4 RDW Coeff of [place] 13.9 Plt Count 382 MPV 11.5 Immature Gran % (Auto) 0.300 Neut % (Auto) 55.7 Lymph % (Auto) 35.9 [place] % (Auto) 5.6 Eos % (Auto) 1.9 Baso % (Auto) 0.6 Absolute Neuts (auto) 6.7 Absolute Lymphs (auto) 4.31 Nucleated RBC % 0 Sodium 137 Potassium 3.9 Chloride 106 Carbon Dioxide 23.0 Anion Gap 8 BUN 11 Creatinine 0.72 Estim Creat Clear Calc 188.93 Est GFR (MDRD) Af Amer 124 Est GFR (MDRD) Non-Af 102 BUN/Creatinine Ratio 15.3 Glucose 89 Calcium 9.3 Troponin I High Sens 7 5 TSH 3.100 Free T4 0.97 Free T3 pg/dL 3.1 Serum , Qual NEGATIVE Urine Opiates Screen Urine Methadone Screen Ur Barbiturates Screen Ur Phencyclidine Scrn Ur Amphetamines Screen MDMA (Ecstasy) Screen U Benzodiazepines Scrn Urine Cocaine Screen U Cannabinoids Screen Ur Drug Screen Comment 07/22/24 20:15 WBC RBC Hgb Hct MCV MCH MCHC RDW Std Deviation RDW Coeff of Carey Plt Count MPV Immature Gran % (Auto) Neut % (Auto) Lymph % (Auto) [place] % (Auto) Eos % (Auto) Baso % (Auto) Absolute Neuts (auto) Absolute Lymphs (auto) Nucleated RBC % Sodium Potassium Chloride Carbon Dioxide Anion Gap BUN Creatinine Estim Creat Clear Calc Est GFR (MDRD) Af Amer Est GFR (MDRD) Non-Af BUN/Creatinine Ratio Glucose Calcium Troponin I High Sens TSH Free T4 Free T3 pg/dL Serum , Qual Urine Opiates Screen NEGATIVE Urine Methadone Screen NEGATIVE Ur Barbiturates Screen NEGATIVE Ur Phencyclidine Scrn NEGATIVE Ur Amphetamines Screen NEGATIVE MDMA (Ecstasy) Screen NEGATIVE U Benzodiazepines Scrn NEGATIVE Urine Cocaine Screen NEGATIVE U Cannabinoids Screen NEGATIVE Ur Drug Screen Comment Radiography Diagnostic Testing: Clinical Impression(s) from Imaging Studies Chest X-Ray 07/22/24 17:42 IMPRESSION: No definite acute cardiopulmonary process. If there is persistent pain or clinical concern, short-term follow-up chest CT evaluation may be considered. Reading Location: [facility] Chest CTA 07/22/24 18:03 IMPRESSION: No acute findings in the chest. No pulmonary embolism or evidence of thoracic aortic dissection. Lungs are grossly clear, although evaluation is limited due to respiratory motion. No thoracic adenopathy. One or more dose reduction techniques were used (e.g., Automated exposure control, adjustment of the mA and/or kV according to patient size, use of iterative reconstruction technique). Reading Location: [facility] Discharge Plan Triage Chief Complaint: Palpitations ED Provider: Eric Figueroa Dx/Rx/DC Orders Clinical Impression: Atrial fibrillation with rapid ventricular response, Dyspnea on exertion, Palpitations Prescriptions: No Action losartan 50 mg tablet 50 mg PO BID buspirone 30 mg tablet 30 mg PO BID omeprazole 20 mg capsule,delayed release(DR/EC) 20 mg PO BID lisdexamfetamine 30 mg capsule 30 mg PO DAILY vilazodone 20 mg tablet 20 mg PO DAILY clotrimazole-betamethasone 1-0.05 % cream 1 applic topical BID PRN PRN (Reason: rash) cyanocobalamin (vitamin B-12) 1,000 mcg tablet 1,000 mcg PO DAILY Primary Care Provider: Oanh Taylor Referrals: Oanh Taylor PA [Primary Care Provider] - Print Language: Ecuadorean Disposition Disposition: Acute Care Hospital [facility]
[2024-07-22 18:42] LABS: Internal QC Validated? YES +Cl - CLEAR BKGD; Pregnancy, Serum, hCG Quali. NEGATIVE Negative
[2024-07-22 19:01] LABS: Free T3 3.1 pg/mL (2.18-3.98); T4 Free Direct 0.97 ng/dL (0.76-1.46)
[2024-07-22 19:32] LABS: Reflex Troponin-HS? (from REC) Y
[2024-07-22] MEDS: dilTIAZem 25 MG/5 ML Vial 20 MG IV BOLUS (19:47)
[2024-07-22] MEDS: Diltiazem 125 MG in Dextrose 5%-Water (100mL Bag) 100 ML IV (20:00)
[2024-07-22 20:17] LABS: Troponin-I HS 5 pg/mL (3.0-54.0)
--- NOTE | 2024-07-22 20:28 | PCM.HP.STD ---
[facility] - General General Date of Admission: 07/22/24 Date of Service: 07/22/24 Chief Complaint: Palpitations, Heart Racing and SOB. HPI Narrative YEMI MANSFIELD, is a 29 F with a past medical history of essential hypertension; on losartan, morbid obesity; with BMI of 64 this admission, history of depression; on vilazodone and buspirone, history of ADHD; on lisdexamfetamine, history of acute bronchitis, history of influenza A and GERD; on omeprazole who presents to [facility] ER complaining of palpitations, heart racing and SOB. Ms. Mansfield reports her symptoms began approximately two days prior to admission with the abrupt-onset of a sensation of heart racing and palpitations when she was getting into her car. She also admits to dyspnea on exertion that is new along with heightened anxiety about her ongoing arrhythmia as she does not know why this is happening to her. She admits to travelling to a concert over the weekend to [place] followed by another concert in [place], [place] but she denies being on OCP's or HRT. She states she stopped taking her lisdexamfetamine two days ago and she affirms that she did not take any other stimulants, excessive caffeine ingestion or illicit drugs. She denies recent illness, history of BEST or personal history of atrial fibrillation. She denies a family history of heart problems except her maternal grandmother. In the ER she was noted to have EKG evidence of New-onset Atrial Fibrillation; with RVR of ~156 bpm that was resistant to treatment with IV metoprolol and IV diltiazem drip with a negative UDS, negative urine test and normal TSH with Leukocytosis of 12K present on admission likely due to Acute Phase Reactant with patient having no signs of infection at this time and she was then admitted to the PCU for ongoing care for a stay that is expected to extend beyond 2 midnights. [facility] Medical History Acute bronchitis, unspecified Influenza A Home Medications ?Medication ?Instructions ?Recorded ?Last Taken ?Type buspirone 30 mg tablet 30 mg PO BID 07/22/24 07/21/24 23:24 History clotrimazole-betamethasone 1 1 applic topical BID PRN PRN rash 07/22/24 Unknown History %-0.05 % topical cream cyanocobalamin (vitamin B-12) 1,000 mcg PO DAILY 07/22/24 Unknown History 1,000 mcg tablet lisdexamfetamine 30 mg capsule 30 mg PO DAILY 07/22/24 Unknown History losartan 50 mg tablet 50 mg PO BID 07/22/24 Unknown History omeprazole 20 mg capsule,delayed 20 mg PO BID 07/22/24 Unknown History release vilazodone 20 mg tablet 20 mg PO DAILY 07/22/24 Unknown History Allergy/AdvReac Type Severity Reaction Status Date / Time No Known Allergies Allergy Verified 07/22/24 17:20 Surgical History History of appendectomy Social History household members: significant other housing: house Smoking Status: Never smoker ROS ROS Narrative Review of Systems: Constitutional: Patient denies fevers or chills. Eyes: Patient denies changes in vision or discharge from eyes. ENT: Patient admits to recent mild sinus congestion but she denies runny nose, sore throat or ear pain. Resp: Patient admits to dyspnea on exertion. CV: Patient admits to heart racing and palpitations as noted in HPI. She denies chest pain. GI: Patient denies abdominal pain, nausea, vomiting, diarrhea or constipation. : Patient denies dysuria or hematuria. MSK: Patient denies arthralgias or myalgias. Skin: Patient denies rash, abscess, wounds or jaundice. Psych: Patient admits to heightened anxiety about her arrhythmia but she denies SI or HI. Neuro: Patient denies headache, paresthesias or focal neurologic deficits. Allergy: Patient denies lip swelling, tongue swelling or urticaria. Hematology: Patient denies easy bleeding or easy bruisability. Endocrinology: Patient denies polyuria, polydipsia or polyphagia. 14 point ROS otherwise negative except for positives noted above in HPI. Vital Signs Vital Signs Vital Signs: 07/22/24 17:20 07/22/24 17:39 07/22/24 17:55 Temperature 98.1 F Temperature Source Oral Pulse Rate 66 156 H Respiratory Rate 16 Blood Pressure 175/158 H 193/167 H Blood Pressure Mean 163 175 Blood Pressure Source Blood Pressure Position Blood Pressure Location Pulse Ox 99 98 98 Oxygen Delivery Method Room Air Room Air 07/22/24 17:58 07/22/24 18:19 07/22/24 18:40 Temperature Temperature Source Pulse Rate 147 H 156 H 151 H Respiratory Rate 16 Blood Pressure 179/169 H 128/81 H 105/76 Blood Pressure Mean 172 96 85 Blood Pressure Source Blood Pressure Position Blood Pressure Location Pulse Ox 98 Oxygen Delivery Method 07/22/24 18:49 07/22/24 19:00 07/22/24 19:48 Temperature Temperature Source Pulse Rate 147 H 147 H 141 H Respiratory Rate Blood Pressure 118/78 131/98 H 120/93 H Blood Pressure Mean 91 109 102 Blood Pressure Source Blood Pressure Position Blood Pressure Location Pulse Ox 98 98 Oxygen Delivery Method 07/22/24 19:53 07/22/24 20:00 07/22/24 20:00 Temperature Temperature Source Pulse Rate 105 H 119 H 139 H Respiratory Rate 18 19 H 17 Blood Pressure 97/71 111/71 111/71 Blood Pressure Mean 79 84 84 Blood Pressure Source Monitor Blood Pressure Position Semi-Fowlers Blood Pressure Location Right Forearm Pulse Ox 98 96 98 Oxygen Delivery Method Room Air Weight Weight: 378 lb 8.539 oz Body Mass Index (BMI) 62.9 Physical Exam Const alert and oriented x3 Constitutional Narrative: Patient anxious, tearful and morbidly obese. General Appearance: cooperative HEENT normocephalic, head/scalp atraumatic, hearing grossly normal bilaterally and moist oral mucous membranes Eyes PERRL, EOMs intact bilaterally and conjunctivae normal Neck no lymphadenopathy, supple and no JVD Resp normal respiratory effort, no retractions, no use of accessory muscles and clear to auscultation bilaterally Cardio regular rate and regular rhythm Cardio Narrative: Irregularly irregular @ ~130 bpm. GI normal to inspection, nondistended, normoactive bowel sounds, soft to palpation, non-tender and non-distended GI Narrative: Morbidly obese. Extremity normal to inspection, full ROM and no clubbing, cyanosis or edema Skin Skin Narrative: Patient has no evidence of rash, abscess, wounds or jaundice. Neuro oriented x3, CN's II-XII intact bilaterally, moves all extremities and no focal motor deficits Sensorium / Orientation: awake, alert, oriented to person, oriented to place and oriented to time Speech: speech normal Psych Mood & Affect: anxious Results Medical Records Data Attestation: I reviewed the patient's medical records Lab / Micro Data Attestation: I reviewed the patient's lab results. 07/22/24 17:30 07/22/24 17:30 Labs: Laboratory Results - last 24 hr 07/22/24 17:30: WBC 12.0 H, RBC 5.13, Hgb 13.5, Hct 41.1, MCV 80.1 L, MCH 26.3 L, MCHC 32.8, RDW Std Deviation 40.4, RDW Coeff of Carey 13.9, Plt Count 382, MPV 11.5, Immature Gran % (Auto) 0.300, Neut % (Auto) 55.7, Lymph % (Auto) 35.9, Brooks % (Auto) 5.6, Eos % (Auto) 1.9, Baso % (Auto) 0.6, Absolute Neuts (auto) 6.7, Absolute Lymphs (auto) 4.31, Nucleated RBC % 0, Sodium 137, Potassium 3.9, Chloride 106, Carbon Dioxide 23.0, Anion Gap 8, BUN 11, Creatinine 0.72, Estim Creat Clear Calc 188.93, Est GFR (MDRD) Af Amer 124, Est GFR (MDRD) Non-Af 102, BUN/Creatinine Ratio 15.3, Glucose 89, Calcium 9.3, Troponin I High Sens 7, TSH 3.100, Free T4 0.97, Free T3 pg/dL 3.1 07/22/24 18:12: Serum , Qual NEGATIVE 07/22/24 19:44: Troponin I High Sens 5 07/22/24 20:15: Ur Drug Screen Comment Imaging Radiology Impression Chest X-Ray 07/22/24 17:42 IMPRESSION: No definite acute cardiopulmonary process. If there is persistent pain or clinical concern, short-term follow-up chest CT evaluation may be considered. [facility] Chest CTA 07/22/24 18:03 IMPRESSION: No acute findings in the chest. No pulmonary embolism or evidence of thoracic aortic dissection. Lungs are grossly clear, although evaluation is limited due to respiratory motion. No thoracic adenopathy. One or more dose reduction techniques were used (e.g., Automated exposure control, adjustment of the mA and/or kV according to patient size, use of iterative reconstruction technique). Reading [facility] Assessment & Plan Assessment/Plan (1) Atrial fibrillation with rapid ventricular response: (2) Dyspnea on exertion: (3) Palpitations: (4) Acute anxiety: (5) Adverse drug reaction: QUALIFIERS: Encounter type: initial encounter Qualified Code(s): T50.905A - Adverse effect of unspecified drugs, medicaments and biological substances, initial encounter (6) Leukocytosis: QUALIFIERS: Leukocytosis type: unspecified Qualified Code(s): D72.829 - Elevated white blood cell count, unspecified (7) Morbid obesity with BMI of 60.0-69.9, adult: (8) Essential hypertension: PLAN: Plan 1. New-onset Atrial Fibrillation; with RVR of ~156 bpm that was resistant to treatment with IV metoprolol and IV diltiazem drip with a negative UDS, negative urine test and normal TSH - Admit to PCU. Continue IV diltiazem and add oral metoprolol BID in an effort to keep heart rate < 100 bpm. Patient is very symptomatic and will likely not tolerate being left in atrial fibrillation if she does not convert spontaneously as it is suspected she may require cardioversion. Serialize troponin. Check echocardiogram to evaluate LVEF. Finally, we will consult [facility] to see this patient on-rounds in the AM for further recommendations with help appreciated in advance. 2. Dyspnea on Exertion and Palpitations with Acute Anxiety arising from #1 - Continue supportive care as outlined above plus give low-dose prn alprazolam for breakthrough symptoms. 3. Leukocytosis of 12K present on admission complicating #1 & #2 - Suspected to be due to acute phase reactant with no overt signs of infection at this time. 4. Morbid Obesity; with BMI of 64 this admission adding to the burden of disease outlined from #1 - #3 - Weight loss will be recommended. Patient should be set up for formal outpatient sleep study with suspected BEST. This complicates her case and may hamper recovery. 5. Essential Hypertension; on losartan adding to the medical complexity of #1 - #4 - Resume losartan as previous plus metoprolol BID has already been added. 6. History of depression; on vilazodone and buspirone - Maintain home regimen as previous. 7. History of ADHD; on lisdexamfetamine - Hold this agent as her arrhythmia outlined in #1 may have been initially triggered by an Adverse Drug Reaction to this agent. 8. History of acute bronchitis - Noted. 9. History of influenza A - Noted with no signs of recurrence. 10. GERD; on omeprazole - Resume PPI. 11. DVT prophylaxis - Patient already on full-dose Lovenox for #1. Total time: Approximately (but not less than) 75 minutes. Charges/Coding Visit Charges Inpatient E&M: 22428 Init Hosp L3
[2024-07-22 20:46] LABS: Amphetamine Urine NEGATIVE (<1000 ng/mL); Barbiturate Urine VISTA NEGATIVE (< 200 ng/mL); Benzodiazepine Urine VISTA NEGATIVE (< 200 ng/mL); Cocaine Urine NEGATIVE (< 300 ng/mL); Ecstacy Urine VISTA NEGATIVE (< 500 ng/mL); Methadone Urine VISTA NEGATIVE (< 300 ng/mL); Opiates Urine NEGATIVE (< 300 ng/mL); PCP Urine NEGATIVE (< 25 ng/mL); THC Urine VISTA NEGATIVE (< 50 ng/mL); Vista UDS pH Range 5
--- NOTE | 2024-07-22 21:13 | ECHOCS_ITS ---
Reason For Study Reason For Study: Afib, Aflutter Procedure This was a 2D Doppler, Color Flow transthoracic echocardiogram. Contrast injection was performed. Exam performed portable in patient room. Left Ventricle Normal LV size. The estimated ejection fraction is 65 %. No evidence for diastolic dysfunction. No regional wall motion abnormalities noted. Right Ventricle Normal RV size. Normal systolic function. Atria The left and right atria are normal. No doppler evidence for ASD. Mitral Valve There is no mitral valve stenosis. Trivial mitral valve insufficiency. Tricuspid Valve There is no tricuspid stenosis. Trivial tricuspid valve insufficiency. Unable to estimate RV systolic pressure due to insufficient tricuspid regurgitant envelope. Aortic Valve Trisinus/trileaflet aortic valve. There is no aortic stenosis. No aortic valve insufficiency. Pulmonic Valve There is no pulmonic valvular stenosis. No pulmonic valve insufficiency. Great Vessels Normal sized aortic root. Pericardium/Pleural No pericardial effusion. Medication Diluted definity 2ml given slow IV push to enhance endocardial definition. MMode/2D Measurements & Calculations LVIDd: 5.2 cm IVSd: 1.0 cm Ao root diam: 3.0 cm LVIDs: 3.2 cm LVPWd: 0.98 cm RVDd: 3.3 cm FS: 38.0 % LAV(MOD-bp): 45.4 ml LVAd ap4: 27.1 cm2 SV(MOD-sp4): 55.0 ml LAV(MOD-bp) Indexed: 17.5 ml/m2 LVLd ap4: 7.9 cm SI(MOD-sp4): 21.3 ml/m2 LAV(MOD-sp2): 54.1 ml EDV(MOD-sp4): 75.9 ml LAV(MOD-sp4): 34.8 ml EDV(sp4-el): 78.9 ml LVAs ap4: 12.8 cm2 LVLs ap4: 6.6 cm ESV(MOD-sp4): 20.9 ml ESV(sp4-el): 21.0 ml EF(MOD-sp4): 72.5 % EF(sp4-el): 73.3 % SV(sp4-el): 57.8 ml LA A4 area: 15.4 cm2 LA dimension(2D): 4.6 cm RA A4 area: 12.0 cm2 TAPSE: 2.0 cm Doppler Measurements & Calculations MV E max cliff: 115.4 cm/sec Lat Peak E' Cliff: 15.7 cm/sec Med Peak E' Cliff: 14.2 cm/sec E/E' lat: 7.4 E/E' med: 8.2 Ao V2 max: 153.7 cm/sec LV V1 max: 135.9 cm/sec PA V2 max: 94.2 cm/sec Ao max P.6 mmHg LV V1 max P.4 mmHg Ao V2 mean: 102.2 cm/sec Ao mean P.9 mmHg Ao V2 VTI: 26.1 cm TR max cliff: 228.8 cm/sec TR max P.9 mmHg ECHO/Echo Complete W/ Contrast Interpretation Summary The estimated ejection fraction is 65 %. No evidence for diastolic dysfunction. Trivial mitral valve insufficiency. Ordering Physician: Wilfrid Hernandez Referring Physician: Oanh Taylor Performed By: Oanh Vizcaino, KRISHNA, RVT
[2024-07-22 21:29] LABS: Magnesium 1.9 mg/dL (1.6-2.6)
[2024-07-22] MEDS: Enoxaparin 80 MG/0.8 ML Syringe 160 MG SC (22:12)
[2024-07-22] MEDS: busPIRone 15 MG TABLET 30 MG PO (23:41)
[2024-07-22] MEDS: Losartan Potassium 50 MG Tablet PO (23:41)
[2024-07-22] MEDS: Metoprolol Tartrate 25 MG Tablet PO (23:41)
[2024-07-22] MEDS: Pantoprazole Sodium 20 MG Tablet PO (23:42)
[2024-07-23] VITALS (24 sets, daily range): BP systolic 94–158; BP diastolic 57–130; PULSE 66–131; RESP 16–21; TEMP 37.1–37.2; O2SAT 92–98
[2024-07-23] MEDS: busPIRone 15 MG TABLET 30 MG PO (00:37)
[2024-07-23] MEDS: 0.9% Normal Saline (1000mL) 1,000 ML 100 ML IV (00:40)
[2024-07-23 01:06] LABS: Troponin-I HS 5 pg/mL (3.0-54.0)
[2024-07-23 03:53] LABS: Troponin-I HS 4 pg/mL (3.0-54.0)
[2024-07-23] MEDS: Diltiazem 125 MG in Dextrose 5%-Water (100mL Bag) 100 ML 15 MG IV ×2 (05:00→13:15)
[2024-07-23 06:50] LABS: Absolute Lymphocyte Count 3.31 X10^3/uL (0.83-4.51); Basophil# 0.05 X10^3/uL; Basophil% 0.4 % (0-1); Eosinophil# 0.12 X10^3/uL; Hematocrit 36.2 % (37-47); Hemoglobin 11.8 g/dL (12.0-15.0); Lymphocyte # 3.31 X10^3/ul (0.83-4.51); Lymphocyte % 27.5 % (19-41); Mean Corp Hgb Conc 32.6 g/dL (32-36); Mean Corpuscular Hgb 26.1 pg (27.0-32.0); Mean Corpuscular Volume 80.1 fL (81-99); Mean Platelet Vol. 11.3 fl (6.2-12.0); Monocyte# 0.53 X10^3/uL; Monocyte% 4.4 % (0-10); NRBC Flagged by Analyzer 0 % (0-5); Neutrophil % 66.4 % (47-70); Platelet Count 284 K/mm3 (150-450); RBC Distribution Width SD 40.6 fl (35.1-43.9); Red Blood Count 4.52 M/mm3 (4.2-5.4); White Blood Count 12.1 K/mm3 (4.4-11.0)
[2024-07-23 07:16] LABS: ALB/GLOB Ratio 0.6 RATIO (0.9-2.4); AST(SGOT) 8 U/L (15-37); Alanine Aminotransfer ALT/SGPT 17 U/L (13-56); Albumin, Serum 2.6 g/dL (3.2-5.0); Alkaline Phosphatase 83 U/L (45-117); Anion Gap 7 (5-15); BUN 7 mg/dL (7-18); BUN/Creat Ratio 13.6 RATIO (10-20); Calcium,Total 8.2 mg/dL (8.5-10.1); Chloride 108 mmol/L (98-107); Creatinine, Serum 0.52 mg/dL (0.55-1.02); EST Glomerular Filtration Rate 150 mL/min (>60); Est Glom Filt Rate - Afr Amer 182 mL/min (>60); Estimated Creatinine Clearance 261.29 ml/min; Globulin 4.1 g/dL (2.2-4.2); Glucose 102 mg/dL (74-106); Phosphorus 3.1 mg/dL (2.5-4.9); Potassium 3.6 mmol/L (3.5-5.1); Protein, Total 6.7 g/dL (6.4-8.2); Sodium Level 138 mmol/L (136-145); Troponin-I HS 5 pg/mL (3.0-54.0)
--- NOTE | 2024-07-23 07:34 | PCM.CONS.C ---
Assessment & Plan Assessment/Plan (1) Atrial fibrillation with rapid ventricular response: PLAN: This appears to be new onset atrial fibrillation most probably related to her stimulant drug for her ADHD. She has noted palpitations in the past that was shortly of taking this medication. However these persisted since 07/20/2019 5 in the evening. The patient had a negative urine drug screen, negative CTA, and does not appear to be actively infected. I recommend the patient avoid stimulant drug use for future for treatment of her ADHD. We will attempt to control her rate by increasing her beta-isabel and titrating her diltiazem. We will switch her from Lovenox to oral Eliquis as her [id number] or of 2 would relegate her to oral anticoagulation therapy. Given the fact has been over 48 hours I am reluctant to pursue direct-current cardioversion without appropriate anticoagulation for 3 to 4 weeks. Will continue to manage heart rate titrate her medications and plan for her to be discharged to home unless she spontaneously converts to sinus rhythm. It will be 2 more days before the stimulant drug will be completely out of her system that is possible she will cardiovert on her own by added beta-isabel effect. I changed the orders to put her on Eliquis 5 mg twice daily we need to monitor her hemoglobin as it was 11 on admission. I also increase her metoprolol to tartrate to 50 mg twice daily if this does not control her rate better in the next 12 hours would increase it to 50 mg every 6 hours. The patient should be reevaluated for sleep apnea in the ambulatory setting after discharge. (2) Essential hypertension: PLAN: Patient's blood pressure has been controlled in her home environment on losartan. However given the need for additional beta-isabel and rate modulating medications I would recommend we hold the losartan and titrate her beta-isabel therapy. If needed we can reinstitute losartan for blood pressure control prior to discharge. PLAN: Plan 1. Will continue with rate control and switch to Eliquis for oral anticoagulation therapy given her [id number] score of 2. 2. I will continue to follow along with you and monitor her rate response. HPI Consult Data Date of Consult: 07/23/24 HPI Narrative Reason for Consultation: New onset atrial fibrillation with rapid ventricular response HPI Narrative: YEMI JC, is a 29 F who presents with a history of palpitations that started Saturday evening 07/20/2024. The patient has been in atrial fibrillation for over 48 hours as of this time. The patient presented to emergency department on 07/22/2024. She had a heart rate of 164 with atrial fibrillation and occasional PVCs on her EKG. The patient was treated with IV metoprolol and IV Cardizem with less than optimal rate control. She was started on Lovenox and admitted to the progressive coronary care unit. The patient's been continued on metoprolol 25 mg twice daily. Her heart rate has been running in the 120-140 range. The patient is well aware when she is in atrial fibrillation by her palpitations. She denies any syncope or near syncope. She denies any chest pain. Patient has no prior history of atrial fibrillation. She has been on ADHD drug that is a stimulant. She has had episodes where she felt these palpitations that last seconds to minutes and resolve spontaneously in the past but nothing has been persistent like this. The patient had a CTA done in the emergency department which showed no evidence of a PE or any type of major abnormalities. Troponins were negative. The patient is morbidly obese she has been evaluated for obstructive sleep apnea and told that she needed a tonsillectomy but did not necessarily test positive for sleep apnea. This was 5 years ago. The urine drug screen was negative in the ED. The patient denies any illicit drug use. The patient has no first-degree family relatives with atrial fibrillation or cardiovascular disease her maternal grandmother did have atrial fibs late in life she believes. Patient does have a history of hypertension that has been treated with ARB therapy. She also has a history of bronchitis and influenza but not recently by her report. The patient's [id number] score is 2 based on her age hypertension and female gender. [facility] Medical History Acute bronchitis, unspecified Influenza A Home Medications ?Medication ?Instructions ?Recorded ?Last Taken ?Type buspirone 30 mg tablet 30 mg PO BID 07/22/24 07/21/24 23:24 History clotrimazole-betamethasone 1 1 applic topical BID PRN PRN rash 07/22/24 Unknown History %-0.05 % topical cream cyanocobalamin (vitamin B-12) 1,000 mcg PO DAILY 07/22/24 Unknown History 1,000 mcg tablet lisdexamfetamine 30 mg capsule 30 mg PO DAILY 07/22/24 Unknown History losartan 50 mg tablet 50 mg PO BID 07/22/24 Unknown History omeprazole 20 mg capsule,delayed 20 mg PO BID 07/22/24 Unknown History release vilazodone 20 mg tablet 20 mg PO DAILY 07/22/24 Unknown History Allergy/AdvReac Type Severity Reaction Status Date / Time No Known Allergies Allergy Verified 07/22/24 17:20 Surgical History History of appendectomy Social History household members: significant other housing: house Smoking Status: Never smoker ROS Constitutional Constitutional: Reports as per HPI Eyes Eyes: Reports systems reviewed and no addt'l complaints, except as documented ENT HEENT: Reports systems reviewed and no addt'l complaints, except as documented Cardiovascular Cardiovascular: Reports as per HPI Respiratory/Chest Respiratory/Chest: Reports as per HPI Gastrointestinal Gastrointestinal: Reports systems reviewed and no addt'l complaints, except as documented Genitourinary Genitourinary: Reports systems reviewed and no addt'l complaints, except as documented Musculoskeletal Musculoskeletal: Reports systems reviewed and no addt'l complaints, except as documented Integumentary Integumentary: Reports systems reviewed and no addt'l complaints, except as documented Neurologic Neurologic: Reports systems reviewed and no addt'l complaints, except as documented Psychiatric Psychiatric: Reports as per HPI Endocrine Endocrinology: Reports systems reviewed and no addt'l complaints, except as documented Hematologic/Lymphatic Hematologic/Lymphatic: Reports systems reviewed and no addt'l complaints, except as documented Allergic/Immunologic Allergic/Immunologic: Reports systems reviewed and no addt'l complaints, except as documented Physical Exam Const alert and oriented x3 Constitutional Narrative: Anxious and morbidly obese. HEENT HEENT Narrative: Thick neck Eyes PERRL Neck no carotid bruits Neck Narrative: Thick short neck Chest Chest Narrative: Increased AP diameter due to body habitus Resp normal respiratory effort and clear to auscultation bilaterally Cardio Cardio Narrative: Distant heart tones due to body habitus Rate: tachycardic Rhythm: abnormal rhythm irregularly irregular Heart Sounds: S1 normal and S2 normal; Negative for click, gallop or murmur GI soft to palpation GI Narrative: Obese Extremity no pedal edema Extremity Narrative: Large bilateral lower extremities with no pitting edema. Neuro Neuro Narrative: Alert and oriented x 3 Psych mental status grossly normal Risk Stratification Risk Stratification Applicable: No Charges/Coding Visit Charges Inpatient E&M: 30051 Init Hosp L3 Objective Data Vital Signs: Vital Signs Temp Pulse Resp BP Pulse Ox O2 Del Method 98.3 F 112 H 16 114/84 H 95 Room Air 07/22/24 22:08 07/23/24 03:00 07/23/24 03:00 07/23/24 03:00 07/23/24 03:00 07/23/24 03:00 Oxygen Delivery Method Room Air Weight: 377 lb 13.957 oz Body Mass Index (BMI) 62.8 Intake & Output: Intake and Output for Last 24 Hours 07/21/24 07/22/24 07/23/24 23:59 23:59 23:59 Intake Total 42.67 / 350.17 352.5 / 352.5 Balance 42.67 / 350.17 352.5 / 352.5 Lab / Micro Data Attestation: I reviewed the patient's lab results. 07/23/24 06:43 07/23/24 06:43 Labs: Laboratory Results - last 24 hr 07/22/24 17:30: WBC 12.0 H, RBC 5.13, Hgb 13.5, Hct 41.1, MCV 80.1 L, MCH 26.3 L, MCHC 32.8, RDW Std Deviation 40.4, RDW Coeff of Carey 13.9, Plt Count 382, MPV 11.5, Immature Gran % (Auto) 0.300, Neut % (Auto) 55.7, Lymph % (Auto) 35.9, Lake % (Auto) 5.6, Eos % (Auto) 1.9, Baso % (Auto) 0.6, Absolute Neuts (auto) 6.7, Absolute Lymphs (auto) 4.31, Nucleated RBC % 0, Sodium 137, Potassium 3.9, Chloride 106, Carbon Dioxide 23.0, Anion Gap 8, BUN 11, Creatinine 0.72, Estim Creat Clear Calc 188.93, Est GFR (MDRD) Af Amer 124, Est GFR (MDRD) Non-Af 102, BUN/Creatinine Ratio 15.3, Glucose 89, Calcium 9.3, Troponin I High Sens 7, TSH 3.100, Free T4 0.97, Free T3 pg/dL 3.1 07/22/24 18:12: Serum , Qual NEGATIVE 07/22/24 19:44: Magnesium 1.9, Troponin I High Sens 5 07/22/24 20:15: Urine Opiates Screen NEGATIVE, Urine Methadone Screen NEGATIVE, Ur Barbiturates Screen NEGATIVE, Ur Phencyclidine Scrn NEGATIVE, Ur Amphetamines Screen NEGATIVE, MDMA (Ecstasy) Screen NEGATIVE, U Benzodiazepines Scrn NEGATIVE, Urine Cocaine Screen NEGATIVE, U Cannabinoids Screen NEGATIVE, Ur Drug Screen Comment 07/23/24 00:35: Troponin I High Sens 5 07/23/24 03:04: Troponin I High Sens 4 07/23/24 06:43: WBC 12.1 H, RBC 4.52, Hgb 11.8 L, Hct 36.2 L, MCV 80.1 L, MCH 26.1 L, MCHC 32.6, RDW Std Deviation 40.6, RDW Coeff of Carey 14.0, Plt Count 284, MPV 11.3, Immature Gran % (Auto) 0.300, Neut % (Auto) 66.4, Lymph % (Auto) 27.5, Lake % (Auto) 4.4, Eos % (Auto) 1.0, Baso % (Auto) 0.4, Absolute Neuts (auto) 8.0 H, Absolute Lymphs (auto) 3.31, Nucleated RBC % 0, Sodium 138, Potassium 3.6, Chloride 108 H, Carbon Dioxide 24.0, Anion Gap 7, BUN 7, Creatinine 0.52 L, Estim Creat Clear Calc 261.29, Est GFR (MDRD) Af Amer 182, Est GFR (MDRD) Non-Af 150, BUN/Creatinine Ratio 13.6, Glucose 102, Calcium 8.2 L, Phosphorus 3.1, Total Bilirubin 0.30, AST 8 L, ALT 17, Alkaline Phosphatase 83, Troponin I High Sens 5, Total Protein 6.7, Albumin 2.6 L, Globulin 4.1, Albumin/Globulin Ratio 0.6 L Rhythm Strip Rhythm Strip: A-fib Rate: 125 Cardiology Labs/Tests 07/22/24 17:30: WBC 12.0 H, RBC 5.13, Hgb 13.5, Hct 41.1, MCV 80.1 L, MCH 26.3 L, MCHC 32.8, Plt Count 382, MPV 11.5, Immature Gran % (Auto) 0.300, Neut % (Auto) 55.7, Lymph % (Auto) 35.9, Lake % (Auto) 5.6, Eos % (Auto) 1.9, Baso % (Auto) 0.6, Absolute Neuts (auto) 6.7, Nucleated RBC % 0, Sodium 137, Potassium 3.9, Chloride 106, Carbon Dioxide 23.0, Anion Gap 8, BUN 11, Creatinine 0.72, Est GFR (MDRD) Af Amer 124, Est GFR (MDRD) Non-Af 102, BUN/Creatinine Ratio 15.3, Glucose 89, Calcium 9.3 07/22/24 19:44: Magnesium 1.9 07/23/24 06:43: WBC 12.1 H, RBC 4.52, Hgb 11.8 L, Hct 36.2 L, MCV 80.1 L, MCH 26.1 L, MCHC 32.6, Plt Count 284, MPV 11.3, Immature Gran % (Auto) 0.300, Neut % (Auto) 66.4, Lymph % (Auto) 27.5, Lake % (Auto) 4.4, Eos % (Auto) 1.0, Baso % (Auto) 0.4, Absolute Neuts (auto) 8.0 H, Nucleated RBC % 0, Sodium 138, Potassium 3.6, Chloride 108 H, Carbon Dioxide 24.0, Anion Gap 7, BUN 7, Creatinine 0.52 L, Est GFR (MDRD) Af Amer 182, Est GFR (MDRD) Non-Af 150, BUN/Creatinine Ratio 13.6, Glucose 102, Calcium 8.2 L, Phosphorus 3.1, Total Bilirubin 0.30 Rhythm: EKG: ECHO: Stress Test: Cardiac Cath: PCI: CT Surgery: Holter monitor: EPS: PPM: CXR: Chest CT Scan: Radiography Diagnostic Testing: Radiology Impression Chest X-Ray 07/22/24 17:42 IMPRESSION: No definite acute cardiopulmonary process. If there is persistent pain or clinical concern, short-term follow-up chest CT evaluation may be considered. Reading Location: [facility] Chest CTA 07/22/24 18:03 IMPRESSION: No acute findings in the chest. No pulmonary embolism or evidence of thoracic aortic dissection. Lungs are grossly clear, although evaluation is limited due to respiratory motion. No thoracic adenopathy. One or more dose reduction techniques were used (e.g., Automated exposure control, adjustment of the mA and/or kV according to patient size, use of iterative reconstruction technique). Reading Location: [facility]
[2024-07-23] MEDS: APIXABAN 5 MG TABLET PO ×2 (09:14→22:31)
[2024-07-23] MEDS: Metoprolol Tartrate 50 MG Tablet PO ×3 (09:15→22:31)
[2024-07-23] MEDS: VILAZODONE HYDROCHLORIDE 10 MG TABLET 20 MG PO (09:15)
[2024-07-23] MEDS: Pantoprazole Sodium 20 MG Tablet PO ×2 (09:15→22:31)
[2024-07-23] MEDS: Cyanocobalamin 500 MCG Tablet 1000 MCG PO (09:16)
[2024-07-23] MEDS: ALPRAZolam 0.25 MG Tablet 0.125 MG PO (10:26)
--- NOTE | 2024-07-23 15:11 | PN.HOSP_ITS ---
Reason for Visit Reason for Visit: Diagnoses Elevated white blood cell count, unspecified (07/22/24) Morbid (severe) obesity due to excess calories (07/22/24) Anxiety disorder, unspecified (07/22/24) Essential (primary) hypertension (07/22/24) Unspecified atrial fibrillation (07/22/24) Palpitations (07/22/24) Other forms of dyspnea (07/22/24) Adverse effect of unspecified drugs, medicaments and biological substances, initial encounter (07/22/24) Body mass index [BMI] 60.0-69.9, adult (07/22/24) Subjective Subjective Patient lying down in bed, heart rate control improving though she is still on diltiazem drip with oral metoprolol, denies chest pain or shortness of breath Objective Data Objective Data Vital Signs: Vital Signs Temp Pulse Resp BP Pulse Ox O2 Del Method 98.3 F 108 H 18 130/79 H 93 Room Air 07/22/24 22:08 07/23/24 13:00 07/23/24 13:00 07/23/24 13:00 07/23/24 13:00 07/23/24 13:00 Oxygen Delivery Method Room Air Weight: 171.4 kg Body Mass Index (BMI) 62.8 Intake & Output: Intake and Output for Last 24 Hours 07/21/24 07/22/24 07/23/24 23:59 23:59 23:59 Intake Total 42.67 / 350.17 1589.41 / 1589.41 Balance 42.67 / 350.17 1589.41 / 1589.41 Lab / Micro Data 07/23/24 06:43 07/23/24 06:43 Labs: Laboratory Results - last 24 hr 07/22/24 17:30: WBC 12.0 H, RBC 5.13, Hgb 13.5, Hct 41.1, MCV 80.1 L, MCH 26.3 L , MCHC 32.8, RDW Std Deviation 40.4, RDW Coeff of Carey 13.9, Plt Count 382, MPV 11.5, Immature Gran % (Auto) 0.300, Neut % (Auto) 55.7, Lymph % (Auto) 35.9, [place] % (Auto) 5.6, Eos % (Auto) 1.9, Baso % (Auto) 0.6, Absolute Neuts (auto) 6.7, Absolute Lymphs (auto) 4.31, Nucleated RBC % 0, Sodium 137, Potassium 3.9, Chloride 106, Carbon Dioxide 23.0, Anion Gap 8, BUN 11, Creatinine 0.72, Estim Creat Clear Calc 188.93, Est GFR (MDRD) Af Amer 124, Est GFR (MDRD) Non-Af 102, BUN/Creatinine Ratio 15.3, Glucose 89, Calcium 9.3, Troponin I High Sens 7, TSH 3.100, Free T4 0.97, Free T3 pg/dL 3.1 07/22/24 18:12: Serum , Qual NEGATIVE 07/22/24 19:44: Magnesium 1.9, Troponin I High Sens 5 07/22/24 20:15: Urine Opiates Screen NEGATIVE, Urine Methadone Screen NEGATIVE, Ur Barbiturates Screen NEGATIVE, Ur Phencyclidine Scrn NEGATIVE, Ur Amphetamines Screen NEGATIVE, MDMA (Ecstasy) Screen NEGATIVE, U Benzodiazepines Scrn NEGATIVE, Urine Cocaine Screen NEGATIVE, U Cannabinoids Screen NEGATIVE, Ur Drug Screen Comment 07/23/24 00:35: Troponin I High Sens 5 07/23/24 03:04: Troponin I High Sens 4 07/23/24 06:43: WBC 12.1 H, RBC 4.52, Hgb 11.8 L, Hct 36.2 L, MCV 80.1 L, MCH 26.1 L, MCHC 32.6, RDW Std Deviation 40.6, RDW Coeff of Carey 14.0, Plt Count 284, MPV 11.3, Immature Gran % (Auto) 0.300, Neut % (Auto) 66.4, Lymph % (Auto) 27.5, Barbour % (Auto) 4.4, Eos % (Auto) 1.0, Baso % (Auto) 0.4, Absolute Neuts (auto) 8.0 H, Absolute Lymphs (auto) 3.31, Nucleated RBC % 0, Sodium 138, Potassium 3.6, Chloride 108 H, Carbon Dioxide 24.0, Anion Gap 7, BUN 7, C reatinine 0.52 L, Estim Creat Clear Calc 261.29, Est GFR (MDRD) Af Amer 182, Est GFR (MDRD) Non-Af 150, BUN/Creatinine Ratio 13.6, Glucose 102, Calcium 8.2 L, Phosphorus 3.1, Total Bilirubin 0.30, AST 8 L, ALT 17, Alkaline Phosphatase 83, Troponin I High Sens 5, Total Protein 6.7, Albumin 2.6 L, Globulin 4.1, A lbumin/Globulin Ratio 0.6 L Radiography Diagnostic Testing: Radiology Impression Chest X-Ray 07/22/24 17:42 IMPRESSION: No definite acute cardiopulmonary process. If there is persistent pain or clinical concern, short-term follow-up chest CT evaluation may be considered. Reading Location: [facility] Chest CTA 07/22/24 18:03 IMPRESSION: No acute findings in the chest. No pulmonary embolism or evidence of thoracic aortic dissection. Lungs are grossly clear, although evaluation is limited due to respiratory motion. No thoracic adenopathy. One or more dose reduction techniques were used (e.g., Automated exposure control, adjustment of the mA and/or kV according to patient size, use of iterative reconstruction technique). Reading Location: [facility] Echocardiogram 07/22/24 21:13 Interpretation Summary The estimated ejection fraction is 65 %. No evidence for diastolic dysfunction. Trivial mitral valve insufficiency. Ordering Physician: Wilfrid Hernandez Referring Physician: Oanh Taylor Performed By: Oanh Vizcaino, KRISHNA, RVT Rhythm Strip Rhythm Strip: A-fib Rate: 125 Physical Exam Narrative General: Resting comfortably in bed HEENT: Atraumatic, normocephalic Eyes: Anicteric, normal conjunctiva, extraocular movements grossly intact Neck: Supple Respiratory: Somewhat diminished at the bases, this is in part due to habitus Cardiovascular: Irregularly irregular, heart rate high 90s and low 100s on both oral metoprolol and IV diltiazem GI: Soft, nontender, nondistended Extremities: No edema Musculoskeletal: Moving all extremities Neuro: No overt focal neurological deficits Skin: No rashes appreciated Psych: Cooperative Assessment & Plan Assessment/Plan (1) Atrial fibrillation with rapid ventricular response: PLAN: Plan # New onset A-fib with RVR -May be in part due to patient being on lisdexamfetamine, holding this -Likely need to evaluate outpatient for sleep apnea as well -Discussed with cardiology, metoprolol increased to 50 mg Q6 tab and will attempt to turn off diltiazem drip -Goal is for patient to be able to be discharged on metoprolol tartrate 100 mg twice daily tomorrow if she is stable and follow-up with cardiology office in 3 weeks -Continue Eliquis -Monitoring on telemetry -Echocardiogram without noted acute abnormality #GERD -Continue PPI #Morbid obesity -BMI documented as 62.9 kg/m? at time of admission -Complicates treatment, prognosis, outcomes -Recommend weight loss and lifestyle changes insert anxiety # Anxiety -Continue home BuSpar, continue home lorazepam -Will add hydroxyzine as needed # ADHD -Hold home lisdexamfetamine, will need alternative agent in outpatient basis as it is suspected that this has worsened underlying problem #Hypertension -Patient on losartan at home, this is held to allow for titration of beta- isabel #DVT ppx: Berto Sidhu MD Charges/Coding Visit Charges Inpatient E&M: 99340 Subs Hosp L2
[2024-07-23] MEDS: busPIRone 15 MG TABLET 60 MG PO (22:30)
[2024-07-24] VITALS (7 sets, daily range): BP systolic 94–131; BP diastolic 70–80; PULSE 108–138; RESP 16–18; TEMP 37.1–37.2; O2SAT 91–97; BMI 63.0
[2024-07-24] MEDS: Metoprolol Tartrate 50 MG Tablet PO (05:11)
[2024-07-24 06:28] LABS: Absolute Lymphocyte Count 1.86 X10^3/uL (0.83-4.51); Basophil# 0.05 X10^3/uL; Basophil% 0.3 % (0-1); Eosinophil# 0.07 X10^3/uL; Eosinophils% 0.4 % (0-5); Hematocrit 36.5 % (37-47); Hemoglobin 11.9 g/dL (12.0-15.0); Lymphocyte # 1.86 X10^3/ul (0.83-4.51); Lymphocyte % 11.1 % (19-41); Mean Corp Hgb Conc 32.6 g/dL (32-36); Mean Corpuscular Hgb 26.2 pg (27.0-32.0); Mean Corpuscular Volume 80.2 fL (81-99); Mean Platelet Vol. 11.2 fl (6.2-12.0); Monocyte# 0.69 X10^3/uL; Monocyte% 4.1 % (0-10); NRBC Flagged by Analyzer 0 % (0-5); Neutrophil # 13.98 X10^3/uL (2.7-7.7); Neutrophil % 83.7 % (47-70); Platelet Count 296 K/mm3 (150-450); RBC Distribution Width CV 14.1 % (11.6-14.6); RBC Distribution Width SD 40.9 fl (35.1-43.9); Red Blood Count 4.55 M/mm3 (4.2-5.4); White Blood Count 16.7 K/mm3 (4.4-11.0)
[2024-07-24 06:52] LABS: BUN 7 mg/dL (4-19); BUN/Creat Ratio 12.3 RATIO (10-20); Creatinine, Serum 0.6 mg/dL (0.6-1.0); EST Glomerular Filtration Rate 127 (>60); Estimated Creatinine Clearance 226.81 ml/min; Glucose 113 mg/dL (70-99); Phosphorus 3.2 mg/dL (2.7-4.5)
[2024-07-24] MEDS: dilTIAZem CD 180 MG Capsule PO (08:23)
[2024-07-24] MEDS: Pantoprazole Sodium 20 MG Tablet PO (08:24)
[2024-07-24] MEDS: VILAZODONE HYDROCHLORIDE 10 MG TABLET 20 MG PO (08:24)
[2024-07-24] MEDS: Cyanocobalamin 500 MCG Tablet 1000 MCG PO (08:24)
[2024-07-24] MEDS: APIXABAN 5 MG TABLET PO (08:24)
--- NOTE | 2024-07-24 08:29 | PCM.PN.CARD ---
Subjective Subjective Patient's heart rate remains elevated 120?130 range in atrial fibrillation. However there were a couple of times last night when it dropped down in the 60 to 70 bpm range but I cannot find rhythm strips that correlate with that low of a heart rate. Currently the patient is running at 120 bpm. I would recommend that we change her medications for better rate control to add diltiazem 180 mg extended release now to be taken in the morning and then change her metoprolol to tartrate to 100 mg twice daily at 10 and 10. If at noon her heart rate is around 100 she should be able to be discharged to home later today. I did go over in detail with the patient the long-term plan of keeping her on oral anticoagulation for 3-4 weeks we will see her in the office to evaluate possible direct-current cardioversion. Objective Data Vital Signs: Vital Signs Temp Pulse Resp BP Pulse Ox O2 Del Method 99 F 135 H 16 131/70 H 94 Room Air 07/24/24 08:22 07/24/24 08:22 07/24/24 08:22 07/24/24 08:22 07/24/24 08:22 07/24/24 08:22 Oxygen Delivery Method Room Air Weight: 378 lb 12.066 oz Body Mass Index (BMI) 63.0 Intake & Output: Intake and Output for Last 24 Hours 07/22/24 07/23/24 07/24/24 23:59 23:59 23:59 Intake Total 42.67 / 350.17 2917.33 / 3157.33 440 / 440 Balance 42.67 / 350.17 2917.33 / 3157.33 440 / 440 Lab / Micro Data Attestation: I reviewed the patient's lab results. 07/24/24 06:14 07/24/24 06:14 Labs: Laboratory Results - last 24 hr 07/24/24 06:14: WBC 16.7 H, RBC 4.55, Hgb 11.9 L, Hct 36.5 L, MCV 80.2 L, MCH 26.2 L, MCHC 32.6, RDW Std Deviation 40.9, RDW Coeff of Carey 14.1, Plt Count 296, MPV 11.2, Immature Gran % (Auto) 0.400, Neut % (Auto) 83.7 H, Lymph % (Auto) 11.1 L, [place] % (Auto) 4.1, Eos % (Auto) 0.4, Baso % (Auto) 0.3, Absolute Neuts (auto) 14.0 H, Absolute Lymphs (auto) 1.86, Nucleated RBC % 0, BUN 7, Creatinine 0.6, Estim Creat Clear Calc 226.81, Est GFR (MDRD) Non-Af 127, BUN/Creatinine Ratio 12.3, Glucose 113 H, Phosphorus 3.2 Rhythm Strip Rhythm Strip: A-fib Rate: 120 Cardiology Labs/Tests 07/24/24 06:14: WBC 16.7 H, RBC 4.55, Hgb 11.9 L, Hct 36.5 L, MCV 80.2 L, MCH 26.2 L, MCHC 32.6, Plt Count 296, MPV 11.2, Immature Gran % (Auto) 0.400, Neut % (Auto) 83.7 H, Lymph % (Auto) 11.1 L, [place] % (Auto) 4.1, Eos % (Auto) 0.4, Baso % (Auto) 0.3, Absolute Neuts (auto) 14.0 H, Nucleated RBC % 0, BUN 7, Creatinine 0.6, Est GFR (MDRD) Non-Af 127, BUN/Creatinine Ratio 12.3, Glucose 113 H, Phosphorus 3.2 Rhythm: EKG: ECHO: Stress Test: Cardiac Cath: PCI: CT Surgery: Holter monitor: EPS: PPM: CXR: Chest CT Scan: Radiography Diagnostic Testing: Radiology Impression Echocardiogram 07/22/24 21:13 Interpretation Summary The estimated ejection fraction is 65 %. No evidence for diastolic dysfunction. Trivial mitral valve insufficiency. Ordering Physician: Wilfrid Hernandez Referring Physician: Oanh Taylor Performed By: Oanh Vizcaino, RDCS, RVT Physical Exam Const alert and oriented x3 Constitutional Narrative: Anxious HEENT normocephalic Eyes PERRL Neck Neck Narrative: Very thick neck. Resp normal respiratory effort and clear to auscultation bilaterally Cardio Cardio Narrative: Distant heart tones due to body habitus. Rate: tachycardic Rhythm: abnormal rhythm irregularly irregular Heart Sounds: S1 normal and S2 normal; Negative for click, gallop or murmur Extremity no pedal edema Neuro Neuro Narrative: Alert and oriented x 3 Psych mental status grossly normal Assessment & Plan Assessment/Plan (1) Atrial fibrillation with rapid ventricular response: PLAN: Patient's heart rate remains elevated she has received 3 doses of 50 mg metoprolol tartrate every 6. Her blood pressure is well-controlled. Will add diltiazem p.o. 180 mg every morning and change the metoprolol to tartrate to 100 mg twice daily. Plan is to try and best rate control the patient to around 100 bpm and have her reevaluated in the office after 3-4 weeks of oral anticoagulation therapy. Also discussed with the patient should she develop dizziness or lightheaded spells and her heart rate drops consistently into 60 or less beats per minute that she call the office so we can do an EKG as is likely she may have spontaneously converted in her home environment. The patient is to avoid her ADHD medication. She is also to avoid caffeine and I recommend she have obstructive sleep apnea evaluation done. PLAN: Plan 1. Will add diltiazem to her medical regimen as noted above. 2. Will change metoprolol to tartrate to 100 mg twice daily. 3. I went over details with the patient about monitoring her rate response as well as any symptoms of lightheaded or dizziness and her blood pressure response to the medications. 4. Continue Eliquis 5 mg twice daily for 3 to 4 weeks until she is evaluated in the office. 5. Patient to call to schedule an appointment for an EKG and ADRIAN visit for 3 weeks. 6. The patient remains in atrial fibrillation would set the patient up for direct-current cardioversion in 4-5 weeks. 7. If the patient's heart rate is adequate and she denies any dizzy lightheaded spells she should be able to discharge to home today. Charges/Coding Visit Charges Inpatient E&M: 74769 Subs Hosp L2
[2024-07-24 09:08] LABS: Calcium,Total 8.7 mg/dL (7.6-11.0); Chloride 105 mmol/L (98-107); Potassium 3.9 mmol/L (3.5-5.1); Sodium Level 137 mmol/L (136-145)
[2024-07-24 09:09] LABS: Anion Gap 13 (5-15); Carbon Dioxide 19.1 mmol/L (21.0-32.0)
[2024-07-24] MEDS: Metoprolol Tartrate 100 MG Tablet PO (09:31)
--- NOTE | 2024-07-24 11:35 | CASEMGMT ---
RN CM Face to Face with patient for initial transition planning/care coordination assessment. RN CM introduced self and role at [facility]. Patient lying in bed, alert and oriented. Patient willing to participate in assessment and is able to answer all questions appropriately. Care providers, pharmacy, and demographics verified. Strata: 1 PCP: Brandon LOPEZ Specialists: none Preferred Pharmacy: [facility] Insurance: [employer] Prescription Benefit: yes Living Will/HPOA: none LNOK: mother, boyfriend Living Arrangements: Patient lives with boyfriend in a first floor apartment with no steps to enter. Patient is independent at home. Transportation: self, boyfriend DME/HHC: [facility] denies DME in the home. No previous HHC or SNF Patient wishes to discharge home, denies need for home health at this time. Patient states she has no further needs or concerns at this time. CM to follow for discharge planning needs that may arise. Disposition Plan: Patient to discharge home with family support and follow-up up plans in place. Ileana DELONG, RN, CM
--- NOTE | 2024-07-24 12:20 | PCM.DC.SUM ---
Providers Date of Admission: 07/23/24 Date of Discharge: 07/24/24 Primary Care Physician: JOHN Ramirez Consultations 07/22/24 22:56 Consult: Cardiology Routine Consulting Provider: [facility] Reason for Consult: New-onset AFIB with RVR. EMERGENT Consult: No MD Notified: Yes Date Notified: 07/23/24 Time Notified: 08:25 Method of Notification: Verbal Method of Consult:: In-Person Reason For Visit: NEW ONSET AFIB WITH PERSISTENT RVR Diagnosis Discharge Diagnosis (1) Atrial fibrillation with rapid ventricular response: Status: Acute Code(s): I48.91 - Unspecified atrial fibrillation Medications at Discharge Home Medications buspirone 30 mg tablet 30 mg PO BID 07/22/24 clotrimazole-betamethasone 1 %-0.05 % topical cream 1 applic topical BID PRN PRN rash 07/22/24 cyanocobalamin (vitamin B-12) 1,000 mcg tablet 1,000 mcg PO DAILY 07/22/24 omeprazole 20 mg capsule,delayed release 20 mg PO BID 07/22/24 vilazodone 20 mg tablet 20 mg PO DAILY 07/22/24 apixaban 5 mg tablet (Eliquis) 5 mg PO BID #60 tabs 07/24/24 diltiazem HCl 180 mg capsule,extended release 24 hr 180 mg PO DAILY #30 caps 07/24/24 metoprolol tartrate 100 mg tablet 100 mg PO BID #60 tabs 07/24/24 Hospital Course Operations None Procedures 2-D Echocardiogram, EKG and - (Chest x-ray/CTA of the chest) Summary of Care Provided Minutes Spent on Discharge: 36 Hospital Course: Ms Mansfield is a 29-year-old white female who presents emergency department [facility] on 07/22/2024 with palpitations, racing heart, and shortness of breath. Patient has a history of morbid obesity and was placed on lisdexamfetamine for ADHD but is using it for weight loss. Symptoms began about 2 days prior to presentation when she was getting into her car. She also reported dyspnea on exertion along with a heightened anxiety that is new. 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 She stopped taking the stimulant 2 days prior to presentation and denied any other stimulant use or excessive caffeine ingestion. She denied illicit drug as well. She had an history of atrial fibrillation or family history of cardiac issues. Vital signs on presentation showed temperature 98.1, heart rate 156, respiratory rate 16, blood pressure 175/158 with a repeat of 128/81 after Cardizem drip and pulse ox was 99% on room air. CBC showed a mild leukocytosis with a white count of 12.0 but no left shift. Chemistry panel on presentation was unremarkable. Electrolytes were normal. Troponins were normal x 3. TSH was normal at 3.1. test was negative. Given her recent travel and new A-fib with RVR on EKG, a CTA of her chest was performed and was negative for any acute findings including PE or thoracic dissection. No adenopathy was noted. She was admitted to the hospital and cardiology was consulted. It is felt that the stimulant along with potential diagnosis for obstructive sleep apnea was the etiology for her A-fib. She was initially placed on rate controlling medication and Lovenox subcu however was transition to Eliquis. Given the fact on presentation she had been symptomatic for over 48 hours direct cardioversion was deferred at that time with the plan for anticoagulation for 3 to 4 weeks prior to considering cardioversion. Medications were uptitrated and at the time of discharge cardiology recommended her going on diltiazem 180 mg daily as well as metoprolol 100 mg p.o. twice daily. She was still in A-fib at the time of discharge with heart rates in the low 100s to 120s. Case was discussed further with Dr. Hernández from cardiology and he felt she was stable for discharge as she was asymptomatic. She is to watch her heart rates closely at home and if develops any rapid heart rates or lightheadedness/presyncopal symptoms to call the office and get in for an EKG. If she is asymptomatic plan is to follow-up in 3 weeks with cardiology office and continue to avoid stimulants. She has been advised to check her heart rates periodically throughout the day especially if she develops any lightheadedness. Prescriptions for the diltiazem, metoprolol, and Eliquis were sent to local pharmacy prior to discharge. I have advised her to follow-up with her primary care physician within the next week. She was advised to obtain a polysomnography as an outpatient to rule out BEST as a potential etiology for development of atrial fibrillation. Discharge diagnoses: Atrial fibrillation with RVR Palpitations Dyspnea on exertion Essential hypertension GERD History of ADHD Anxiety Morbid obesity Physical Exam Const alert, oriented x3, no apparent distress, no limitations and well nourished; Negative for average body habitus Constitutional Narrative: Morbidly obese, white female, sitting up in bed, appears comfortable, nontoxic, significant other at bedside General Appearance: cooperative, comfortable, well kempt and well developed Exam Limitations: no limitations Nutritional Appearance: morbidly obese HEENT normocephalic, head/scalp atraumatic and moist oral mucous membranes HEENT Narrative: Mallampati 3-4, no thrush Eyes EOMs intact bilaterally and conjunctivae normal Eyes Narrative: No scleral icterus Neck supple Neck Narrative: Neck is short and thick, trachea midline Resp normal respiratory effort, no retractions, no use of accessory muscles and clear to auscultation bilaterally Resp Narrative: Distant due to body habitus Auscultation: Negative for rales, rhonchi or wheezes Cardio regular rate, regular rhythm, S1 normal heart sound, S2 normal heart sound, no murmurs, no rub, no gallops and no clicks Cardio Narrative: Mildly tachycardic with irregularly irregular rhythm GI normal to inspection, nondistended, normoactive bowel sounds, soft to palpation and non-tender Extremity no clubbing, cyanosis or edema Extremity Narrative: 2+ pedal and radial pulses Skin skin turgor normal, no jaundice, no petechiae and no mottling Neuro oriented x3, moves all extremities and no focal motor deficits Speech: speech normal Psych affect normal Psych Narrative: Very pleasant, interacts appropriately Weight / BMI Weight Weight: 171.8 kg Body Mass Index (BMI) 63.0 ABG / Lab / Microbiology Data 07/24/24 06:14 07/24/24 06:14 Laboratory: Laboratory Results - last 24 hr 07/24/24 06:14: WBC 16.7 H, RBC 4.55, Hgb 11.9 L, Hct 36.5 L, MCV 80.2 L, MCH 26.2 L, MCHC 32.6, RDW Std Deviation 40.9, RDW Coeff of Carey 14.1, Plt Count 296, MPV 11.2, Immature Gran % (Auto) 0.400, Neut % (Auto) 83.7 H, Lymph % (Auto) 11.1 L, [place] % (Auto) 4.1, Eos % (Auto) 0.4, Baso % (Auto) 0.3, Absolute Neuts (auto) 14.0 H, Absolute Lymphs (auto) 1.86, Nucleated RBC % 0, Sodium 137, Potassium 3.9, Chloride 105, Carbon Dioxide 19.1 L, Anion Gap 13, BUN 7, Creatinine 0.6, Estim Creat Clear Calc 226.81, Est GFR (MDRD) Af Amer TNP, Est GFR (MDRD) Non-Af 127, BUN/Creatinine Ratio 12.3, Glucose 113 H, Calcium 8.7, Phosphorus 3.2 Radiography Diagnostic Testing: Radiology Impression Echocardiogram 07/22/24 21:13 Interpretation Summary The estimated ejection fraction is 65 %. No evidence for diastolic dysfunction. Trivial mitral valve insufficiency. Ordering Physician: Wilfrid Hernandez Referring Physician: Oanh Taylor Performed By: Oanh Vizcaino RDCS, RVT D/C Instructions Discharge Diet: Low fat / Low cholesterol Discharge Activity: Return to Normal Activity Return to work on: 07/25/24 DC O2, CPAP, BIPAP Needs Home O2 Discharge instructions: No Meaningful Use Info Meaningful Use Meaningful Use Diagnoses (Choose all that apply): None applicable Ischemic Stroke Statin Dosing Therapy Reference: STATIN DOSE THERAPY REFERENCE: * Patients > 75 years receive moderate or high dose statin therapy. * Patients 75 years or YOUNGER should receive HIGH intensity statin dose unless contraindicated. You will be required to document reason for non-treatment if statin daily dose does not meet guidelines. HIGH DOSE STATIN THERAPY DAILY Atorvastatin > than or = to 40 mg Rosuvastatin > than or = to 20 mg Amlodipine + Atorvastatin > than or = to 2.5/40 mg Ezetimibe + Simvastatin 10/80 mg Simvastatin 80mg Discharge Plan Admission Admit Date/Time: 07/23/24 16:23 Primary Reason for Your Visit: Palpitations Attending Provider: Nirmala Arenas Primary Care Provider: Oanh Taylor Consulting Providers: Wilfrid Hernandez; Mikaela Powell; Josef Hall; Marcelino Márquez; Emir Braswell; Lan Johansen; Ketan Russell; Danial Hernández; Joselin Craig; Chucky Thakkar; Jeffrey Cross; Winston Vizcaino DISPATCHER CLERK; Virginia Peña PA; Kaiser Reina; Marlin Sidhu Instructions Additional Instructions / Restrictions: 1. If you develop any significant palpitations or lightheadedness or feel like you are going to pass out please call the cardiology office and get an to be seen for an EKG per discussion with Dr. Danial Hernández. 2. Please avoid stimulants including caffeine 3. Please ask your primary care physician to get you set up for an outpatient sleep study to rule out obstructive sleep apnea 4. Please take medications below as noted Discharge Orders/Prescriptions Prescriptions: New Eliquis 5 mg Tablet 5 mg PO BID Qty: 60 1RF diltiazem HCl 180 mg Capsule,Extended Release 24hr 180 mg PO DAILY Qty: 30 1RF metoprolol tartrate 100 mg Tablet 100 mg PO BID Qty: 60 1RF Continued buspirone 30 mg tablet 30 mg PO BID Patient Comments: takes both doses @ night omeprazole 20 mg capsule,delayed release(DR/EC) 20 mg PO BID vilazodone 20 mg tablet 20 mg PO DAILY clotrimazole-betamethasone 1-0.05 % cream 1 applic topical BID PRN PRN (Reason: rash) cyanocobalamin (vitamin B-12) 1,000 mcg tablet 1,000 mcg PO DAILY Discontinued losartan 50 mg tablet 50 mg PO BID lisdexamfetamine 30 mg capsule 30 mg PO DAILY Referrals / Follow Up: Danial Hernández MD [Med Staff - Active Staff] - See Referral Note (Call later today or tomorrow to set up an appointment to be seen in 3 weeks) Oanh Taylor PA [Primary Care Provider] - In 1 Week Disposition Disposition (needs filled in before D/C Order can be placed): Home, Self Care Charges/Coding Visit Charges Inpatient E&M: 40972 Disch Hosp >30min
--- NOTE | 2024-07-24 13:04 | CASEMGMT ---
Patient has order for discharge. Patient is discharging on SHAYAN Thomson CM called [facility]oy, copay is $30. RN CM in to update patient and provided with $10 copay card. Patient denies needs or help at discharge. Patient had no furhter questions or concerns.
--- NOTE | 2024-07-24 13:42 | PHA.DC.MR.R ---
Pharmacy CT Med Reconciliation Pharmacy Service has performed discharge medication reconciliation for this patient. Medication education papers prepared, patient discharged during chart review. The patient's discharge medication list was reviewed for discrepancies and discrepancies were resolved. Medications at Discharge Home Medications buspirone 30 mg tablet 30 mg PO BID anxiety 07/22/24 clotrimazole-betamethasone 1 %-0.05 % topical cream 1 applic topical BID PRN PRN rash 07/22/24 cyanocobalamin (vitamin B-12) 1,000 mcg tablet 1,000 mcg PO DAILY vitamin 07/22/24 omeprazole 20 mg capsule,delayed release 20 mg PO BID reflux 07/22/24 vilazodone 20 mg tablet 20 mg PO DAILY mental health 07/22/24 apixaban 5 mg tablet (Eliquis) 5 mg PO BID #60 tabs 07/24/24 diltiazem HCl 180 mg capsule,extended release 24 hr 180 mg PO DAILY #30 caps 07/24/24 metoprolol tartrate 100 mg tablet 100 mg PO BID #60 tabs 07/24/24
== END 2024-07-24 13:34 | disposition home or self-care (01) | DRG 309 ==
LOC: ED 20:56 → PCU 22:57
PROVIDERS: Internal Medicine; Admitting Provider Internal Medicine; Emergency Provider Emergency Medicine; PCP Physician Assistant Medical; Visit Provider Internal Medicine
DX: I48.19 Other persistent atrial fibrillation (principal); Z68.44 Body mass index [BMI] 60.0-69.9, adult; I10 Essential (primary) hypertension; F32.A Depression, unspecified; F41.9 Anxiety disorder, unspecified; K21.9 Gastro-esophageal reflux disease without esophagitis; E66.01 Morbid (severe) obesity due to excess calories; D72.829 Elevated white blood cell count, unspecified; F90.9 Attention-deficit hyperactivity disorder, unspecified type; Z79.899 Other long term (current) drug therapy; Z90.49 Acquired absence of other specified parts of digestive tract; R06.00 Dyspnea, unspecified; R00.2 Palpitations; T43.625A Adverse effect of amphetamines, initial encounter
CPT/HCPCS: 36415; 71045; 71275; 80048; 80053; 80307; 83735; 84100; 84439; 84443; 84481; 84484; 84703; 85025; 93005; 93306; 94668; 99284; Q9957; Q9967; A4216; C8929

== ENCOUNTER 2024-08-01 06:40 | Emergency (ER) | payer OTHER, SELFPAY ==
[2024-08-01] VITALS (7 sets, daily range): BP systolic 111–148; BP diastolic 80–107; PULSE 101–119; RESP 14–26; TEMP 36.6; O2SAT 95–98; BMI 28.5
--- NOTE | 2024-08-01 07:05 | ED.VIS.CHEST ---
HPI History of Present Illness Chief Complaint: Chest Pain Informant: patient Narrative Narrative: 29-year-old female presenting to the emergency room with chest pain palpitations dyspnea. Patient was recently admitted to the hospital with new onset atrial fibrillation. She was started on metoprolol as well as Cardizem and Eliquis. Discharge heart rates of 100-1 10. She was to follow-up with cardiology on the but that appointment was moved to tomorrow. She notes at times she feels like she has forgotten to breathe and has to take a deep breath. She feels pressure in the chest. Continued palpitations. She is unsure if this is what A-fib should feel like. She denies any leg swelling. No cough or fever. Patient had a echocardiogram while she was in the hospital. She is following with Dr. Hernández. [facility] Medical History Atrial fibrillation with rapid ventricular response Dyspnea on exertion Palpitations Morbid obesity with BMI of 60.0-69.9, adult Essential hypertension Home Medications ?Medication ?Instructions ?Recorded ?Last Taken ?Type buspirone 30 mg tablet 30 mg PO BID anxiety 07/22/24 07/21/24 23:24 History clotrimazole-betamethasone 1 1 applic topical BID PRN PRN rash 07/22/24 Unknown History %-0.05 % topical cream cyanocobalamin (vitamin B-12) 1,000 mcg PO DAILY vitamin 07/22/24 Unknown History 1,000 mcg tablet omeprazole 20 mg capsule,delayed 20 mg PO BID reflux 07/22/24 Unknown History release vilazodone 20 mg tablet 20 mg PO DAILY mental health 07/22/24 Unknown History apixaban 5 mg tablet (Eliquis) 5 mg PO BID #60 tabs 07/24/24 Unknown Rx diltiazem HCl 180 mg 180 mg PO DAILY #30 caps 07/24/24 Unknown Rx capsule,extended release 24 hr metoprolol tartrate 100 mg tablet 100 mg PO BID #60 tabs 07/24/24 Unknown Rx Allergy/AdvReac Type Severity Reaction Status Date / Time No Known Allergies Allergy Verified 08/01/24 06:46 Surgical History History of appendectomy Social History household members: significant other housing: house Smoking Status: Never smoker ROS ROS ED ROS Narrative Generalized fatigue Constitutional Constitutional ED: Denies chills, fever(s) or weight loss Eyes Eyes: Denies change in vision or diplopia ENT ENT ED: Denies ear pain, rhinorrhea or sore throat Cardiovascular Cardiovascular: Reports chest pain and palpitations; Denies orthopnea or racing heartbeat Respiratory/Chest Respiratory/Chest: Reports dyspnea; Denies cough or orthopnea Gastrointestinal Gastrointestinal: Denies abdominal pain, diarrhea, nausea or vomiting Genitourinary Genitourinary ED: Denies dysuria, hematuria or urinary frequency Musculoskeletal Musculoskeletal: Denies arthralgias or myalgias Integumentary Denies abscess or rash Neurologic Neurologic: Denies headache(s) or weakness Psychiatric Psychiatric: Denies anxiety, depression, suicidal ideation or suicidal thoughts Endocrine Endocrinology: Denies polydipsia, polyphagia or polyuria Allergic/Immunologic Allergic/Immunologic ED: Denies mouth swelling, tongue swelling or urticaria EXAM Physical Exam Const Vital Signs: 08/01/24 06:41 08/01/24 07:31 08/01/24 07:32 Temperature 97.9 F Temperature Source Oral Pulse Rate 113 H 119 H 109 H Respiratory Rate 18 26 H 24 H Blood Pressure 143/81 H 144/80 H 111/91 H Blood Pressure Mean 101 101 97 Pulse Ox 97 95 95 Oxygen Delivery Method Room Air 08/01/24 08:00 08/01/24 08:37 08/01/24 09:00 Temperature Temperature Source Pulse Rate 107 H 110 H 101 H Respiratory Rate 14 21 H 22 H Blood Pressure 135/102 H 148/102 H 148/102 H Blood Pressure Mean 113 117 117 Pulse Ox 98 95 97 Oxygen Delivery Method Room Air Room Air Positive well nourished, well developed and obese General Appearance ED: well developed and NAD Nutritional Appearance: obese HEENT Reports normocephalic, head/scalp atraumatic and moist mucous membranes Eyes PERRL and EOMs intact bilaterally Neck no lymphadenopathy, supple and no JVD Resp normal respiratory effort Resp Narrative: Few crackles at bases Cardio regular rhythm and no murmurs Rate: tachycardic Rhythm: abnormal rhythm irregularly irregular GI normal to inspection, nondistended, normoactive bowel sounds and non-tender Palpation: soft Back/Spine no CVA tenderness and normal ROM Extremity normal to inspection General Extremety ED: Negative for edema General Extremity: Negative for edema Neuro oriented x3 and CN's II-XII intact bilaterally Sensorium / Orientation: alert Motor Exam: strength 5/5 throughout Psych mental status grossly normal Mood & Affect: Negative for depressed or tearful Skin no rashes or lesions noted and no wounds MDM MDM MDM Narrative Medical decision making narrative: Differential diagnosis includes but not limited to cardiac dysrhythmia acute coronary syndrome electrolyte abnormality anemia pleural effusion congestive heart medication reaction anxiety My independent interpretation of the chest x-ray is mild pulmonary edema. EKG shows atrial fibrillation with RVR at a rate of 101. No ischemic changes are noted. White count is 11.9. Hemoglobin 12.7. Platelet count 381. Sodium potassium within normal limits. Glucose of 109. Troponin less than 6. Only 1 troponin ordered as symptoms have been present for more than 8 hours. Her BNP is 1383. This is difficult to interpret given obesity and the atrial fibrillation. with the findings on the chest x-ray with a few crackles in her history I spoke with Dr. Hernández summary of her dose of Lasix. She has follow-up tomorrow in less than 24 hours. Patient was updated is comfortable with this plan. She is 98% on room air with no significant increased work of breathing. History & Record Review Discussion w/independent historian: Patient Lab Data Attestation: I reviewed the patient's lab results. Labs: Laboratory Results - last 24 hr 08/01/24 06:48 WBC 11.9 H RBC 4.77 Hgb 12.7 Hct 38.2 MCV 80.1 L MCH 26.6 L MCHC 33.2 RDW Std Deviation 40.1 RDW Coeff of Carey 13.8 Plt Count 381 MPV 11.8 Immature Gran % (Auto) 0.400 Neut % (Auto) 60.9 Lymph % (Auto) 30.4 [place] % (Auto) 5.2 Eos % (Auto) 2.3 Baso % (Auto) 0.8 Absolute Neuts (auto) 7.2 Absolute Lymphs (auto) 3.61 Nucleated RBC % 0 Sodium 140 Potassium 4.3 Chloride 104 Carbon Dioxide 20.6 L Anion Gap 15 BUN 15 Creatinine 0.79 Estim Creat Clear Calc 109.34 Est GFR (MDRD) Non-Af 105 BUN/Creatinine Ratio 19.1 Glucose 109 H Calcium 9.0 Troponin T High Sens < 6 NT pro BNP II 1383 H Radiography Diagnostic Testing: Clinical Impression(s) from Imaging Studies Chest X-Ray 08/01/24 07:18 IMPRESSION: Increasing bilateral pulmonary infiltrates particularly within the lower lungs. Follow-up until resolution is recommended. Reading Location: [facility] EKG Initial EKG: Attestation: I personally reviewed and interpreted this EKG as follows: Comments: Atrial fibrillation with RVR ventricular rate of 101 bpm Discharge Plan Triage Chief Complaint: Chest Pain ED Provider: Jose Ramon Castro Dx/Rx/DC Orders Clinical Impression: Atrial fibrillation, Chest pressure, Pulmonary edema Instructions: AFib Prescriptions: No Action buspirone 30 mg tablet 30 mg PO BID Patient Comments: takes both doses @ night omeprazole 20 mg capsule,delayed release(DR/EC) 20 mg PO BID vilazodone 20 mg tablet 20 mg PO DAILY clotrimazole-betamethasone 1-0.05 % cream 1 applic topical BID PRN PRN (Reason: rash) cyanocobalamin (vitamin B-12) 1,000 mcg tablet 1,000 mcg PO DAILY Eliquis 5 mg Tablet 5 mg PO BID Qty: 60 1RF diltiazem HCl 180 mg Capsule,Extended Release 24hr 180 mg PO DAILY Qty: 30 1RF metoprolol tartrate 100 mg Tablet 100 mg PO BID Qty: 60 1RF Primary Care Provider: Oanh Taylor Referrals: Danial Hernández MD [Med Staff - Active Staff] - Keep [place] appointment Oanh Taylor PA [Primary Care Provider] - Print Language: Kyrgyz Disposition Disposition: Home, Self Care
[2024-08-01 07:14] LABS: Absolute Lymphocyte Count 3.61 X10^3/uL (0.83-4.51); Absolute Neutrophil Count 7.2 X10^3/uL (2.0-7.7); Basophil# 0.09 X10^3/uL; Basophil% 0.8 % (0-1); Eosinophil# 0.27 X10^3/uL; Eosinophils% 2.3 % (0-5); Hematocrit 38.2 % (37-47); Hemoglobin 12.7 g/dL (12.0-15.0); Lymphocyte # 3.61 X10^3/ul (0.83-4.51); Lymphocyte % 30.4 % (19-41); Mean Corp Hgb Conc 33.2 g/dL (32-36); Mean Corpuscular Hgb 26.6 pg (27.0-32.0); Mean Corpuscular Volume 80.1 fL (81-99); Mean Platelet Vol. 11.8 fl (6.2-12.0); Monocyte# 0.62 X10^3/uL; Monocyte% 5.2 % (0-10); NRBC Flagged by Analyzer 0 % (0-5); Neutrophil # 7.24 X10^3/uL (2.7-7.7); Neutrophil % 60.9 % (47-70); Platelet Count 381 K/mm3 (150-450); RBC Distribution Width CV 13.8 % (11.6-14.6); RBC Distribution Width SD 40.1 fl (35.1-43.9); Red Blood Count 4.77 M/mm3 (4.2-5.4); White Blood Count 11.9 K/mm3 (4.4-11.0)
--- NOTE | 2024-08-01 07:18 | RAD_ITS ---
PROCEDURE: CHEST 1 VIEW (PORTABLE) REASON FOR EXAM: Shortness of breath. TECHNIQUE: Frontal view of the chest. COMPARISON: Chest x-ray dated 07/18/2024 FINDINGS: The cardiac silhouette is prominent. Increasing bilateral pulmonary infiltrates particularly within the lower lung zones. Follow-up until resolution is recommended. No pneumothorax. No acute osseous abnormality. RAD/Chest 1 View (Portable) IMPRESSION: Increasing bilateral pulmonary infiltrates particularly within the lower lungs. Follow-up until resolution is recommended. Reading Location: [id number]
[2024-08-01 07:40] LABS: Troponin T High Sensitivity < 6 ng/L (<=14)
[2024-08-01 07:58] LABS: Anion Gap 15 (5-15); BUN 15 mg/dL (4-19); BUN/Creat Ratio 19.1 RATIO (10-20); Carbon Dioxide 20.6 mmol/L (21.0-32.0); Chloride 104 mmol/L (98-108); Creatinine, Serum 0.79 mg/dL (0.70-1.20); EST Glomerular Filtration Rate 105 (>60); Estimated Creatinine Clearance 109.34 ml/min (50-250); Glucose 109 mg/dL (70-99); Potassium 4.3 mmol/L (3.3-5.1); Sodium Level 140 mmol/L (133-145)
[2024-08-01 08:52] LABS: Pro- Brain NATRIURETIC PEPTIDE 1383 pg/mL (<=450)
[2024-08-01] MEDS: Furosemide 40 MG/4 ML Vial IV (09:18)
== END 2024-08-01 09:23 | disposition home or self-care (01) ==
PROVIDERS: Emergency Provider Emergency Medicine; PCP Physician Assistant Medical; Visit Provider Emergency Medicine
DX: R07.89 Other chest pain (principal); I48.91 Unspecified atrial fibrillation; J81.1 Chronic pulmonary edema; I10 Essential (primary) hypertension; R00.2 Palpitations; Z79.01 Long term (current) use of anticoagulants; Z79.899 Other long term (current) drug therapy; Z90.49 Acquired absence of other specified parts of digestive tract; R06.00 Dyspnea, unspecified
CPT/HCPCS: 71045; 80048; 83880; 84484; 85025; 93005; 96374; 99283; A4216; J1940

== ENCOUNTER → 2024-08-07 | Outpatient (CLI) | payer OTHER, SELFPAY ==
[2024-08-07 18:05] LABS: Anion Gap 12 (5-15); BUN 13 mg/dL (4-19); BUN/Creat Ratio 18.2 RATIO (10-20); Carbon Dioxide 23.6 mmol/L (21.0-32.0); Chloride 104 mmol/L (98-108); Creatinine, Serum 0.71 mg/dL (0.70-1.20); EST Glomerular Filtration Rate 119 (>60); Glucose 114 mg/dL (70-99); Potassium 3.9 mmol/L (3.3-5.1); Pro- Brain NATRIURETIC PEPTIDE 799 pg/mL (<=450); Sodium Level 140 mmol/L (133-145)
== END | disposition home or self-care (01) ==
LOC: LAB 13:38
PROVIDERS: PCP Physician Assistant Medical; Referring Provider Internal Medicine Cardiovascular Disease; Visit Provider Internal Medicine Cardiovascular Disease
DX: R06.02 Shortness of breath (principal); I48.0 Paroxysmal atrial fibrillation; R07.89 Other chest pain
CPT/HCPCS: 36415; 80048; 83880

== ENCOUNTER → 2025-01-24 | Outpatient (CLI) | payer OTHER, SELFPAY ==
--- OUTSIDE RECORDS SUMMARY | 2025-01-24 07:27 | XMS RPT_ITS | CCD ---
Author Organization [facility] Care Team Providers Care Manager Reporting Name Role Phone Ree Christopher Admitting Unavailable Zumbar Christopher Attending Unavailable YAJAIRA, ASHLYN B Primary Care Unavailable YAJAIRA, ASHLYN B Admitting Unavailable YAJAIRA, ASHLYN B Attending Unavailable YAJAIRA, ASHLYN B Primary Care Unavailable Zumbar, Christopher Admitting Unavailable Zumbar, Christopher Attending Unavailable YAJAIRA, ASHLYN B Primary Care Unavailable Gissel, Melba A Admitting Unavailable Gissel Melba A Attending Unavailable YAJAIRA, ASHLYN B Referring Unavailable YAJAIRA, ASHLYN B Consulting Unavailable YAJAIRA, ASHLYN B Primary Care Unavailable Gissel, Melba A Admitting Unavailable Chauhan, Melba A Attending Unavailable YAJAIRA, ASHLYN B Referring Unavailable YAJAIRA, ASHLYN B Consulting Unavailable YAJAIRA, ASHLYN B Primary Care Unavailable YAJAIRA, ASHLYN B Admitting Unavailable YAJAIRA, ASHLYN B Attending Unavailable YAJAIRA, ASHLYN B Primary Care Unavailable Regulo Pleitez M Admitting Unavailable Regulo Pleitez M Attending Unavailable YAJAIRA, ASHLYN B Referring Unavailable YAJAIRA, ASHLYN B Primary Care Unavailable YAJAIRA, ASHLYN B Admitting Unavailable YAJAIRA, ASHLYN B Attending Unavailable YAJAIRA, ASHLYN B Referring Unavailable YAJAIRA, ASHLYN B Primary Care Unavailable YAJAIRA, ASHLYN B Admitting Unavailable YAJAIRA, ASHLYN B Attending Unavailable YAJAIRA, ASHLYN B Primary Care Unavailable Chris Pleitezdad M Attending Unavailable Me Michaelhrdad M Referring Unavailable YAJAIRA, ASHLYN B Primary Care Unavailable Dino Dean Admitting Unavailable Dino Dean Attending Unavailable YAJAIRA, ASHLYN B Primary Care Unavailable YAJAIRA, ASHLYN B Admitting Unavailable YAJAIRA, ASHLYN B Attending Unavailable YAJAIRA, ASHLYN B Primary Care Unavailable Protillo, Nirali D Admitting Unavailable Portillo, Nirali D Attending Unavailable YAJAIRA, ASHLYN B Primary Care Unavailable Portillo, Nirali D Admitting Unavailable Portillo, Nirali D Attending Unavailable YAJAIRA, ASHLYN B Primary Care Unavailable Portillo, Nirali D Admitting Unavailable Portillo, Nirali D Attending Unavailable YAJAIRA, ASHLYN B Primary Care Unavailable YAJAIRA, ASHLYN B Admitting Unavailable YAJAIRA, ASHLYN B Attending Unavailable YAJAIRA, ASHLYN B Primary Care Unavailable YAJAIRA, ASHLYN B Admitting Unavailable YAJAIRA, ASHLYN B Attending Unavailable YAJAIRA, ASHLYN B Primary Care Unavailable YAJAIRA, ASHLYN B Admitting Unavailable YAJAIRA, ASHLYN B Attending Unavailable YAJAIRA, ASHLYN B Primary Care Unavailable YAJAIRA, ASHLYN B Admitting Unavailable YAJAIRA, ASHLYN B Attending Unavailable YAJAIRA, ASHLYN B Primary Care Unavailable YAJAIRA, ASHLYN B Admitting Unavailable YAJAIRA, ASHLYN B Attending Unavailable YAJAIRA, ASHLYN B Primary Care Unavailable Zumbar, Christopher Admitting Unavailable Zumbar, Christopher Attending Unavailable YAJAIRA, ASHLYN B Primary Care Unavailable Zumbar, Christopher Unavailable Unavailable Yajaira, Ashlyn Unavailable Unavailable Yajaira, Ashlyn B Unavailable Unavailable [place], Ashlyn B Unavailable Unavailable Zumbar, Christopher Unavailable Unavailable [place], Ashlyn Unavailable Unavailable Yajaira, Ashlyn B Unavailable Unavailable Ashlyn Gates Primary Care Provider Ashlyn Soto Primary Care Provider Ashlyn Gates Unavailable [phone] Unavailable Unavailable Ashlyn Soto Primary Care Provider Ashlyn Gates Unavailable Kb Meyer Unavailable Unavailable Zumbar, Christopher M Unavailable Ms. ASHLYN GATES Referring Unavail able Ms. ASHLYN GATES Primary Care Unavail able Ms. ASHLYN GATES Attending Unavail able YAJAIRA, Ms. ASHLYN B Referring Unavail able YAJAIRA, Ms. ASHLYN B Primary Care Unavail able YAJAIRA, Ms. ASHLYN B Attending Unavail able JOHN Soto Primary Care Provider JOHN Soto Referring Provider JOHN Watt Attending Provider Yajaira MASON, Ashlyn Ortiz Primary Care Provider Yajaira LOPEZ Ashlyn Primary Care Provider Yajaira, Ms. [facility] Unav ailable ZChristopher morrison Attending Unavailable Yajaira, Ms. [facility] Unav ailable Kamenik, Ms. Quiles Carmen Attending Faithvai labpetr Meyer, Kb Morales Referring Unavai lable [place], Ms. [facility] Care Unav ailable Kamxochiltk, Kb Morales Attending Unavai labpetr Gates, Ms. [facility] Unav ailable ZChristopher morrison Attending Unavailable [place], Ms. [facility] Unav ailable Christopher Keenan Attending Unavailable Ashlyn Soto Primary Care Provider Ashlyn Gates PA-C Primary Care Provider Miguelina Ramos CMA Unavailable Unavailable [facility] UnavailHEATHER Spencer Attending Unavailable [facility] Care Unavailable FABI GIRALDO Referring Unavailable FABI GIRALDO Attending Unavailable SELF, SELF Referring Unavailable [facility] Care Unavailable FABI GIRALDO Attending Unavailable [place]LOTTE FARAH Referring Unavailable [facility] Care Unavailable FABI GIRALDO Attending Unavailable [place] FARAH Referring Unavailable [facility] Care Unavailable FABI GIRALDO Attending Unavailable [facility] Unavailable FABI GIRALDO Attending Unavailable FABI GIRALDO Referring Unavailable [facility] Primary Care Unavailable FABI GIRALDO Referring Unavailable FABI GIRALDO Attending Unavailable Ashlyn Soto Primary Care Provider Ashlyn Soto Attending Provider Ashlyn Soto Referring Provider Dr. Eric Figueroa DO Emergency Provider de Dread , Dr. Yuen Admit Provider Unavail able de Dread , Dr. Yuen Attending Provider Unav ailable de Dread DO, Dr. Yuen Other Provider Unavail able Nahum GORDON, Dr. Isaac Other Provider Betty GORDON, Dr. Barrow Attending Provider Rafa GORDON, Dr. Olivera Attending Provider Nahum GORDON, Dr. Isaac Attending Provider Sherry GORDON, Dr. Al Other Provider Unavailable Rafael GORDON, Dr. Bahena Other Provider Willi GORDON, Dr. Benson Other Provider French GORDON, Dr. Field Other Provider Haily GORDON, Dr. Montenegro Other Provider Drew GORDON, Dr. Aceves Other Provider Betty GORDON, Dr. Barrow Other Provider Rafa GORDON, Dr. Olivera Other Provider Bijan GORDON, Dr. Locke Other Provider America GORDON, Dr. Murphy Other Provider Carrillo CLOTH STOCK SORTER-C, Heather Lebron Other Provider Virginia Herman Other Provider Kaiser Munguia Other Provider Dr. Nirmala Arensa DO Attending Provider Dr. Nirmala Arenas DO Other Provider Dr. Jose Ramon Castro DO Attending Provider Dr. Jose Ramon Castro DO Emergency Provider Betty GORDON, Dr. Barrow Referring Provider Bijan GORDON, Dr. Locke Attending Provider DESIREE SIN Referring Unavailable ASHLYN GATES Primary Care Unavailable Ashlyn Gates PA-C Primary Care Provider Wilfrid Hernandez Consulting Unavailable Yajaira LOPEZ, Ashlyn Primary Care UnavailNirmala La Attending Unavailable Wilfrid Hernandez Admitting Unavailable Amro, Ahmed Consulting Unavailable Mostafa, Josef Consulting Unavailable Willi, Marcelino Consulting Unavailable Braswell, Emir Consulting Unavailable Haily, Lan Consulting Unavailable Belal, Farouk Consulting Unavailable Danial Hernández Consulting Unavailable Nagajofredy, Williapradee Consulting Unavailabl e Satti, Chucky Consulting Unavailable Vesuvius, Jeffrey Consulting Unavailable Roof CLOTH STOCK SORTER, Heather H Consulting Unavailable Virginia Herman Consulting Unavail able Kaiser Reina Consulting Unavailable Marlin Sidhu Consulting Unavailable Yajaira LOPEZ, Ashlyn Primary Care UnavailDanial Rojas Attending Unavailable Wilfrid Hernandez Consulting Unavailable Yajaira LOPEZ, Ashlyn Primary Care UnavailNirmala La Attending Unavailable Wilfrid Hernandez Admitting Unavailable Amro, Ahmed Consulting Unavailable Mostafa, Josef Consulting Unavailable Willi, Marcelino Consulting Unavailable Braswell, Emir Consulting Unavailable Haily, Lan Consulting Unavailable Belal, Farouk Consulting Unavailable Danial Hernández Consulting Unavailable Williacorinne, Nagapradee Consulting Unavailabl e Satti, Chucky Consulting Unavailable Vesuvius, Jeffrey Consulting Unavailable Roof CLOTH STOCK SORTER, Heather Lebron Consulting Unavailable Virginia Herman Consulting Unavail able Kaiser Reina Consulting Unavailable Marlin Sidhu Consulting Unavailable Nirmala Arenas Consulting Unavailable Yajaira LOPZE, Ashlyn Primary Care Unavailzonia e Ashlyn Soto Referring UnavailDanial Rojas Attending Unavailable Ashlyn Soto Primary Care UnavailMouna LOPEZ, Ashlyn Referring UnavailDanial Rojas Attending Unavailable Chucky Thakkar Attending Unavailable Yajaira LOPEZ, Ashlyn Primary Care Unavailabl e YajairaAshlyn Velasquez Referring Unavailabl e Yajaira PA, Ashlyn Primary Care Unavailabl e Yajaira LOPEZ, Ashlyn Referring Unavailabl e Melanie Ramos NP Attending Unavailable Yajaira LOPEZ, Ashlyn Primary Care Unavailabl e Joselin Craig Attending Unavailzonia e Wilfrid Hernandez Consulting Unavailable Yajaira LOPEZ, Ashlyn Primary Care UnavailDanial Rojas Attending Unavailable Wilfrid Hernandez Admitting Unavailable Marlin Sidhu Consulting Unavailable Marlin Sidhu Attending Unavailable Mikaela Powell Consulting Unavailable Josef Hall Consulting Unavailable WilliMarcelino omalley Consulting Unavailable Emir Braswell Consulting Unavailable Haily Lan Consulting Unavailable Ketan Russell Consulting Unavailable Danial Hernández Consulting Unavailable Joselin Craig Consulting Unavailzonia e Bijan Chucky Consulting Unavailable America Jeffrey Consulting Unavailable Heather Vizcaino NP Consulting Unavailable Virginia Herman Consulting Unavail able Kaiser Reina Consulting Unavailable Danial Hernández Attending Unavailable Wilfrid Hernandez Attending Unavailable Yajaira LOPEZ, Ashlyn Primary Care UnavailDanial Rojas Referring Unavailable Danial Hernández Attending Unavailable Yajaira LOPEZ, Ashlyn Primary Care Unavailabl e Yajaira LOPEZ, Ashlyn Referring Unavailabl e Yajaiar LOPEZ, Ashlyn Attending Unavailabl e Yajaira LOPEZ, Ashlyn Attending Unavailabl e Yajaira LOPEZ, Ashlyn Primary Care Unavailabl e Ashlyn Soto Referring Unavailabl e Jose Ramon Castro Attending Unavailable Yajaira LOPEZ, Ashlyn Primary Care Unavailabl e ASHLYN GATES Attending Unavailable YAJAIRA, ASHLYN B Primary Care Unavailable YAJAIRA ASHLYN B Referring Unavailable YAJAIRA ASHLYN B Attending Unavailable YAJAIRA, ASHLYN B Primary Care Unavailable YAJAIRA, ASHLYN B Attending Unavailable YAJAIRA, ASHLYN B Primary Care Unavailable DESIREE SIN Attending Unavailable YAJAIRA, ASHLYN B Primary Care Unavailable YAJAIRA, ASHLYN B Attending Unavailable YAJAIRA, ASHLYN B Primary Care Unavailable YAJAIRA, ASHLYN B Attending Unavailable YAJAIRA, ASHLYN B Primary Care Unavailable Allergies Allergy Classification Reported Allergen(s) Allergy Type Date of Onset Reaction(s) Facility NSAIDs (7 sources) Diclofenac; Translations: [diclofenac] Drug Allergy 08-06-2020 [facility] (20 sources) Diclofenac; Translations: [diclofenac] Drug Allergy 08-06-2020 Rash, Unknown [facility] Repository Medications Current Medications Medication Drug Class(es) Dates Sig (Normalized) Sig (Original) [id number] 200 actuat albuterol 0.09 mg/actuat metered dose inhaler (20 sources) beta2-Adrenergic Agonist Start: 08-12-2023 take 1-2 puff(s) by inhalation every four hours for wheezing albuterol 90 mcg/actuation inhaler Indications: Acute viral syndrome Inhale 1-2 puffs every 4 hours if needed for wheezing or shortness of breath. 8.5 g 08/12/2023 Active Start: 04-11-2022 take 2 puff(s) by in halation twice daily as needed for cough albuterol 90 mcg/inh inhalation aerosol ; 2 puff(s) inhaled 2 times a day as needed for cough Quantity: 8.5 Refills: 0 Ordered: 11-Apr-2022 Kb Meyer Start: 11-Apr-2022 Generic Substitution Allowed Comments: For inhalation only.It is very important that you take or use this exactly as directed. Do not skip doses or discontinue unless directed by your doctor.Obtain medical advice before taking any non-prescription drugs as some may affect the action of this medication.Shake well before use. Start: 05-18-2021 End: 08-12-2023 take 2 puff(s) by inhalation every six hours as needed albuterol 108 (90 Base) MCG/ACT Aero Soln inhaler Inhale 2 puffs every 6 hours as needed. 05/18/2021 Active Start: 05-18-2021 take 2 puff(s) by mo uth every six hours as needed for wheezing Ventolin HFA 108 (90 Base) MCG/ACT Inhalation Aerosol Solution INHALE 2 PUFFS BY MOUTH EVERY 6 HOURS NEEDED FOR SHORTNESS OF BREATH AND FOR WHEEZING Quantity: 1 Refills: 1 Ordered: 18-May-2021 Ashlyn Gates PA-C Start : 18-May-2021 Active Comment on above: For inhalation only. It is very important that you take or use this exactly as directed. Do not skip doses or discontinue unless directed by your doctor.Obtain medical advice before taking any non-prescription drugs as some may affect the action of this medication.Shake well before use. apixaban 5 mg oral tablet (5 sources) Factor Xa Inhibitor Start: 07-24-2024 take 1 tablet by mouth every twelve hours Eliquis 5 mg tablet Take 1 tablet (5 mg) by mouth every 12 hours. 07/24/2024 Active Start: 07-24-2024 take 1 tablet by marv th twice daily Apixaban (Eliquis) 5 mg Tablet Active 5 mg PO TWICE A DAY 60 July 24, 2024 1:00am azithromycin 250 mg oral tablet (2 sources) Macrolide Antimicrobial Start: 04-11-2022 take 2 tablets by mouth once, then take 1 tablet by mouth once daily azithromycin 250 mg oral tablet ; Take 2 tabs (500mg) x 1 days, then 1 tab (250mg) once daily x 4 days Quantity: 6 Refills: 0 Ordered: 11-Apr-2022 Kb Meyer Start: 11-Apr-2022 Generic Substitution Allowed Comments: Do not take dairy products, antacids, or iron preparations within one hour of this medication.Finish all this medication unless otherwise directed by prescriber. Start: 05-11-2021 Azithromycin 2 50 MG Oral Tablet TAKE 2 TABLETS ON DAY 1 THEN TAKE 1 TABLET A DAY FOR 4 DAYS. Quantity: 1 Refills: 0 Ordered: 11-May-2021 Ashlyn Gates PA-C Start : 11-May-2021 Active Comment on above: Do not take dairy pr oducts, antacids, or iron preparations within one hour of this medication.Finish all this medication unless otherwise directed by prescriber. betamethasone 0.5 mg/ml / clotrimazole 10 mg/ml topical cream (17 sources) Azole Antifungal, Corticosteroid Start: 07-22-2024 Clotrimazole-Betame thasone 1-0.05 % cream Active 1 NMA TOPICAL TWICE DAILY NEEDED as needed for rash July 22, 2024 1:00am Start: 07-02-2024 clotrimazole-b etamethasone (Lotrisone) cream Indications: Vesicular palmoplantar eczema of foot Apply 1 Application topically 2 times a day as needed (rash). 45 g 1 07/02/2024 Active Start: 06-01-2021 End: 01-26-2022 clotrimazole-betamethasone 1 -0.05 % Cream Apply 1 Application topically 2 times daily. 0 06/01/2021 01/26/2022 Discontinued Start: 06-01-2021 End: 01-25-2022 Clotrimazole-Betamethasone 1 -0.05 % External Cream APPLY 1 INCH Twice daily PRN rash Quantity: 1 Refills: 1 Ordered: 01-Jun-2021 Ashlyn Gates PA-C Start : 01-Jun-2021 End : 25-Jan-2022 Complete busPIRone hydrochloride 30 mg oral tablet (20 sources) Start: 08-26-2024 take 1 tablet by mouth twice daily busPIRone (Buspar) 30 mg tablet Indications: Anxiety Take 1 tablet (30 mg) by mouth 2 times a day. 60 tablet 5 08/26/2024 Active Start: 07-30-2024 End: 07-30-2025 take 1 tablet by mouth three times daily as needed for anxiety busPIRone (Buspar) 5 mg tablet Indications: Anxiety Take 1 tablet (5 mg) by mouth 3 times a day as needed (anxiety). 40 tablet 5 07/30/2024 09/11/2024 Discontinued (Therapy completed) Start: 03-04-2019 take 1 tablet by marv th twice daily Buspirone 30 mg tablet Active 30 mg PO TWICE A DAY July 22, 2024 1:00am Start: 03-04-2019 take 1 tablet by marv th once daily busPIRone HCl - 30 MG Oral Tablet TAKE 1 TABLET DAILY. Quantity: 30 Refills: 2 Ashlyn Gates PA-C Start : 04-Mar-2019 Active drospirenone 3 mg / ethinyl estradiol 0.02 mg oral tablet (20 sources) Progestin, Estrogen Start: 11-18-2020 KLAUS 3-0.02 MG tablet Take by mouth daily. 11/18/2020 Active Start: 10-20-2020 End: 12-18-2023 drospirenone-ethinyl estradi oL (Klaus, Gianvi) 3-0.02 mg tablet Take 1 tablet by mouth once daily. 10/20/2020 12/18/2023 Discontinued (Therapy completed) Start: 05-25-2021 drospirenone-e thinyl estradioL (Klaus, Gianvi) 3-0.02 mg tablet Take 1 tablet by mouth once daily. 0 10/20/2020 Active Start: 10-20-2020 End: 11-03-2020 take 1 tablet by mouth once daily KLAUS 3-0.02 MG tablet take 1 tablet by oral route once daily for 28 days 0 10/20/2020 11/03/2020 Discontinued (Duplicate (suppress cancel msg)) Ethinyl Estradiol / Ferrous fumarate / Norethindrone (4 sources) Estrogen Start: 05-09-2024 take 1 tablet by mouth in the morning Larry Fe 06/17, 28, 1 mg-20 mcg (21)/75 mg (7) tablet Take 1 tablet by mouth early in the morning.. 05/09/2024 Active Ethinyl Estradiol / norgestimate (11 sources) Progestin, Estrogen Start: 07-22-2020 take 1 tablet by mouth once daily Tri-Lo-Shari 0.18/0.215/0.25 MG-25 MCG tablet Take 1 tablet by mouth daily. 0 07/22/2020 Active Start: 03-04-2019 take 1 tablet by marv th once daily Norgestim-Eth Estrad Triphasic 0.18/0.215/0.25 MG-25 MCG Oral Tablet TAKE 1 TABLET DAILY. Quantity: 1 Refills: 11 Yajaira MASON, Ashlyn Start : 04-Mar-2019 Active 28 Tablet Pack Start: 03-04-2019 Ortho Tri-Cycl en Lo 0.18/0.215/0.25 MG-25 MCG Oral Tablet Refills: 0 DO Start : 04-Mar-2019 Active 28 Tablet Pack Start: 03-04-2019 Ortho Tri-Cycl en Lo 0.18/0.215/0.25 MG-25 MCG Oral Tablet Refills: 0 Start : 04-Mar-2019 Active 28 Tablet Pack furosemide 40 mg oral tablet (4 sources) Loop Diuretic Start: 08-02-2024 furosemide (La six) 40 mg tablet 1 tablet (40 mg). 08/02/2024 Active hydrOXYzine hydrochloride 25 mg oral tablet (1 source) Antihistamine Start: 10-30-2024 hydrOXYzine HC L (Atarax) 25 mg tablet Indications: JESSICA (generalized anxiety disorder) Take 1 tablet (25 mg) by mouth as needed at bedtime for anxiety (anxiety /insomnia). 30 tablet 2 10/30/2024 Active Start: 10-30-2024 hydrOXYzine HC L (Atarax) 25 mg tablet Indications: JESSICA (generalized anxiety disorder) Take 1 tablet (25 mg) by mouth as needed at bedtime for anxiety (anxiety /insomnia). 30 tablet 2 10/30/2024 Active lisdexamfetamine dimesylate 30 mg oral capsule (20 sources) Central Nervous System Stimulant Start: 05-06-2024 End: 04-10-2024 take 1 capsule by mouth once daily Lisdexamfetamine Dimesylate (Vyvanse) 50 MG capsule Indications: Binge eating disorder, unspecified severity Take 1 capsule by mouth daily. 30 capsule 05/06/2024 04/10/2024 Discontinued (Side effects) Start: 04-10-2024 End: 09-11-2024 take 1 capsule by mouth once daily before mealtime Vyvanse 30 mg capsule Take 1 capsule (30 mg) by mouth once daily in the morning. Take before meals. 05/17/2024 09/11/2024 Discontinued (Side effects) Start: 10-26-2022 End: 06-19-2024 take 1 capsule by mouth once daily lisdexamfetamine (Vyvanse) 50 mg capsule Take 1 capsule (50 mg) by mouth once daily. 30 capsule 10/26/2022 06/19/2024 Discontinued (Med List Cleanup) Start: 07-26-2022 End: 10-29-2022 take 1 capsule by mouth once daily in the morning Lisdexamfetamine Dimesylate (Vyvanse) 40 MG capsule Indications: Binge eating disorder Take 1 capsule by mouth daily every morning. 30 capsule 0 09/29/2022 10/26/2022 Discontinued Start: 06-28-2022 End: 11-01-2022 Vyvanse 30 MG Oral Capsule Q uantity: 30 Refills: 0 Ordered: 28-Jun-2022 DO Start : 28-Jun-2022 Active metoprolol tartrate 100 mg oral tablet (5 sources) beta-Adrenergic Isabel Start: 07-24-2024 take 1 tablet by mouth every twelve hours metoprolol tartrate (Lopressor) 100 mg tablet Take 1 tablet (100 mg) by mouth every 12 hours. 07/24/2024 Active Start: 07-24-2024 take 1 tablet by marv twice daily Metoprolol Tartrate 100 mg Tablet Active 100 mg PO TWICE A DAY 60 July 24, 2024 1:00am omeprazole 20 mg delayed release oral capsule (20 sources) Proton Pump Inhibitor Start: 01-08-2024 take 1 capsule by mouth twice daily before mealtime omeprazole (PriLOSEC) [address] capsule Indications: Dyspepsia Take 1 capsule (20 mg) by mouth 2 times a day before meals. 60 capsule 11 01/08/2024 Active Start: 12-08-2022 take 1 capsule by mo uth twice daily before mealtime omeprazole (PriLOSEC) [address] capsule Indications: Dyspepsia Take 1 capsule (20 mg) by mouth 2 times a day before meals. 60 capsule 11 12/08/2022 Active Start: 03-26-2020 take 1 capsule by mo uth once daily omeprazole [address] capsule Take 1 capsule by mouth daily. 06/24/2020 Active Start: 03-26-2020 End: 11-01-2022 take 1 capsule by mouth twice daily Omeprazole 20 MG Oral Capsule Delayed Release TAKE 1 CAPSULE TWICE DAILY. Quantity: 60 Refills: 5 Ordered: 03-May-2022 Ashlyn Gates PA-C Start : 26-Mar-2020 Active omeprazole 20 mg oral delayed release capsule Quantity: 0 Refills: 0 Ordered: 11-Apr-2022 Shital Anderson Generic Substitution Allowed phenazopyridine hydrochloride 200 mg delayed release oral tablet (2 sources) Start: 12-02-2020 End: 12-04-2020 take 1 tablet by mouth three times daily phenazopyridine 200 MG tablet Indications: Acute cystitis with hematuria Take 1 tablet by mouth 3 times daily for 2 days. 6 tablet 0 12/02/2020 Active sulfamethoxazole 800 mg / trimethoprim 160 mg oral tablet (1 source) Dihydrofolate Reductase Inhibitor Antibacterial, Sulfonamide Antimicrobial Start: 12-02-2020 End: 12-07-2020 take 1 tablet by mouth twice daily sulfamethoxazole-tr imethoprim 800-160 MG per tablet Indications: Acute cystitis with hematuria Take 1 tablet by mouth 2 times daily for 5 days. 10 tablet 0 12/02/2020 12/07/2020 Active vilazodone hydrochloride 40 mg oral tablet (20 sources) Start: 09-11-2024 take 1 tablet by mouth once daily at breakfast vilazodone (Viibryd) 40 mg tablet Indications: Depression, major, single episode, mild , JESSICA (generalized anxiety disorder) Take 1 tablet (40 mg) by mouth once daily with breakfast. 30 tablet 5 09/11/2024 Active Start: 05-23-2023 End: 09-11-2024 take 1 tablet by mouth once daily at breakfast vilazodone (Viibryd) 20 mg tablet Indications: Depression, major, single episode, mild (CMS-HCC) , JESSICA (generalized anxiety disorder) Take 1 tablet (20 mg) by mouth once daily with breakfast. 30 tablet 5 07/15/2024 09/11/2024 Discontinued (Reorder) Start: 05-23-2023 End: 12-18-2023 take 1 tablet by mouth once daily vilazodone (Viibryd) 10 mg tablet Indications: Depression, major, single episode, mild (CMS-HCC) , JESSICA (generalized anxiety disorder) Take 1 tablet (10 mg) by mouth once daily. 7 tablet 05/23/2023 12/18/2023 Discontinued (Med List Cleanup) Start: 03-04-2019 take 1 tablet by marv once daily Viibryd 40 MG Oral Tablet TAKE TABLET Daily Quantity: 30 Refills: 5 Ashlyn Gates PA-C Start : 04-Mar-2019 Active vitamin b12 1 mg oral tablet (20 sources) Vitamin B12 Start: 12-18-2023 End: 12-18-2023 cyanocobalamin (Vitamin B-12 ) injection 1,000 mcg Start: 12-18-2023 End: 12-18-2023 inject 1000 ug by intramuscular injection once 1,000 mcg, intramuscular, Once, On Mon12/18/23 at 1515, For 1 dose Start: 12-18-2023 End: 12-18-2023 take 1 tablet by mouth once daily cyanocobalamin (Mackenzie min B-12) 1,000 mcg tablet Indications: Low vitamin B12 level Take 1 tablet (1,000 mcg) by mouth once daily. 30 tablet 11 12/18/2023 Active Start: 05-03-2022 Cyanocobalamin 1000 MCG/ML Injection Solution INJECT 1 ML Intramuscular Quantity: 0 Refills: 0 Ordered: 03-May-2022 Ashlyn Gates PA-C Start : 03-May-2022 Complete Start: 11-02-2021 inject 1 mL by intra muscular injection every month Cyanocobalamin 1000 MCG/ML Injection Solution INJECT 1 ML INTRAMUSCULARLY ONCE A MONTH Quantity: 0 Refills: 0 Ordered: 02-Nov-2021 Ashlyn Gates PA-C Start : 02-Nov-2021 Complete Completed/Discontinued Medications Medication Drug Class(es) Dates Sig (Normalized) Sig (Original) amitriptyline hydrochloride 25 mg oral tablet (3 sources) Tricyclic Antidepressant Start: 11-23-2020 End: 04-30-2021 amitriptyline 25 MG tablet amoxicillin 875 mg / clavulanate 125 mg oral tablet (5 sources) Penicillin-class Antibacterial Start: 05-18-2022 End: 07-22-2024 Amoxicillin-Pot Clavulanate 875-125 mg tablet Discontinued 1 {tbl} PO TWICE A DAY May 18, 2022 1:00am July 22, 2024 9:04pm Start: 05-18-2022 take 1 tablet by marv twice daily Amoxicillin-Pot Clavulanate Active 1 TABLET PO TWICE A DAY May 18, 2022 12:00am Start: 11-03-2020 End: 11-13-2020 take 1 tablet by mouth every twelve hours amoxicillin-clavulanate 875-125 MG tablet Indications: Acute maxillary sinusitis, recurrence not specified Take 1 tablet by mouth every 12 hours for 10 days. 20 tablet 0 11/03/2020 11/13/2020 Active benzonatate 100 mg oral capsule (3 sources) Non-narcotic Antitussive Start: 08-12-2023 End: 12-18-2023 take 1-2 capsules by mouth every eight hours for cough benzonatate (Tessalon) 100 mg capsule Indications: Acute viral syndrome Take 1-2 capsules (100-200 mg) by mouth every 8 hours if needed for cough. Do not crush or chew. 60 capsule 08/12/2023 12/18/2023 Discontinued (Therapy completed) Start: 05-07-2021 End: 05-11-2021 take 1 capsule by mouth three times daily Tessalon Perles 100 mg oral capsule ; 1 cap(s) orally 3 times a day Quantity: 15 Refills: 0 Ordered: 07-May-2021 Angel Luis Wheatley Start: 07-May-2021 End: 11-May-2021 Status: Other Generic Substitution Allowed Comments: May cause drowsiness. Alcohol may intensify this effect. Use care when operating dangerous machinery.Swallow whole. Do not crush. Comment on above: May cause drowsiness . Alcohol may intensify this effect. Use care when operating dangerous machinery.Swallow whole. Do not crush. 24 hr buPROPion hydrochloride 150 mg extended release oral tablet (3 sources) Aminoketone Start: End: take 1 tablet by mouth once daily in the morning buPROPion HCl ER (XL) 150 MG Oral Tablet Extended Release 24 Hour Take 1 tablet by mouth daily every morning. Quantity: 30 Refills: 0 Ordered: 24-Mar-2022 DO Start : 24-Mar-2022 Complete citalopram 40 mg oral tablet (20 sources) Serotonin Reuptake Inhibitor Start: End: take 1 tablet by mouth once daily citalopram (CeleXA) 40 mg tablet Indications: Depression, major, single episode, mild (CMS-HCC) Take 1 tablet (40 mg) by mouth once daily. 30 tablet 05/04/2023 12/18/2023 Discontinued (Therapy completed) Start: 06-17-2020 take 0.5 tablet by m outh every other week, then take 1 tablet by mouth once daily Citalopram Hydrobromide 40 MG Oral Tablet take 1/2 tab dailyx 2 weeks then 1 tab po daily Quantity: 30 Refills: 5 Ordered: 03-May-2022 Ashlyn Gates PA-C Start : 17-Jun-2020 Active citalopram Quant ity: 0 Refills: 0 Ordered: 11-Apr-2022 Shital Anderson Generic Substitution Allowed codeine phosphate 1.5 mg/ml / guaiFENesin 45 mg/ml oral solution (1 source) Opioid Agonist Start: 05-07-2021 End: 05-11-2021 take 7.5 mL by mouth once daily at bedtime codeine-guaifenesin 7.5 mg-225 mg/5 mL oral liquid ; 7.5 milliliter(s) orally once a day (at bedtime) Quantity: 25 Refills: 0 Ordered: 07-May-2021 Angel Luis Wheatley Start: 07-May-2021 End: 11-May-2021 Status: Other Generic Substitution Allowed Comments: Caution federal law prohibits the transfer of this drug to any person other than the person for whom it was prescribed.May cause drowsiness. Alcohol may intensify this effect. Use care when operating dangerous machinery.Medication should be taken with plenty of water.This drug may impair the ability to drive or operate machinery. Use care until you become familiar with its effects. Comment on above: Caution federal law prohibits the transfer of this drug to any person other than the person for whom it was prescribed.May cause drowsiness. Alcohol may intensify this effect. Use care when operating dangerous machinery.Medication should be taken with plenty of water.This drug may impair the ability to drive or operate machinery. Use care until you become familiar with its effects. colestipol hydrochloride 1000 mg oral tablet (2 sources) Bile Acid Sequestrant Start: 02-24-2023 End: 07-22-2024 Colestipol 1 gram tablet Discontinued 1 g PO TWICE A DAY 60 February 24, 2023 12:00am July 22, 2024 9:04pm dicyclomine hydrochloride 10 mg oral capsule (12 sources) Anticholinergic Start: 02-28-2022 Dicyclomine HCl - 10 MG Oral Capsule Quantity: 30 Refills: 0 Ordered: 28-Feb-2022 DO Start : 28-Feb-2022 Complete Start: 02-28-2022 End: 07-30-2024 take 1-2 capsules by mouth three times daily Dicyclomine 10 mg capsule Discontinued 10 mg PO THREE TIMES A DAY February 28, 2022 12:00am July 22, 2024 9:04pm take one to two capsules three times a day 24 hr dilTIAZem hydrochloride 180 mg extended release oral capsule (7 sources) Calcium Channel Isabel Start: 08-07-2024 End: 08-08-2024 take 1 capsule by mouth twice daily Diltiazem Hcl 180 mg capsule,extended release 24hr Discontinued 180 mg PO TWICE A DAY 180 August 07, 2024 1:36pm August 08, 2024 9:26am Start: 07-24-2024 take 1 tablet by marv th every twenty-four hours in the morning dilTIAZem CD (Cardizem CD) 180 mg 24 hr capsule Take 1 tablet by mouth early in the morning.. 07/24/2024 Active Start: 07-24-2024 End: 08-07-2024 take 1 capsule by mouth once daily Diltiazem Hcl 180 m g capsule,extended release 24hr Active 180 mg PO daily August 08, 2024 9:25am 0.5 ml dulaglutide 1.5 mg/ml auto-injector (1 source) GLP-1 Receptor Agonist Start: 04-07-2022 End: 04-26-2022 inject 0.5 mL by subcutaneous injection every week Dulaglutide (Trulicity) 0.75 MG/0.5ML Solution Pen-injector injection Indications: Metabolic syndrome , Impaired glucose tolerance Inject 0.5 mL under the skin once a week. 2 mL 0 04/07/2022 04/26/2022 Discontinued etodolac 400 mg oral tablet (20 sources) Nonsteroidal Anti-inflammatory Drug Start: 09-01-2020 End: 02-15-2023 take 1 tablet by mouth twice daily before mealtime etodolac 400 MG tablet Take 1 tablet by mouth 2 times daily (take before meals). 0 07/05/2021 02/15/2023 Discontinued fluconazole 150 mg oral tablet (6 sources) Azole Antifungal Start: 06-01-2022 End: 07-22-2024 take 1 tablet by mouth once Fluconazole 150 mg tablet Discontinued 150 mg PO ONCE 1 June 01, 2022 1:00am July 22, 2024 9:05pm as a single dose Start: 06-01-2021 take 1 tablet by marv th once daily Fluconazole 150 MG Oral Tablet TAKE 1 TABLET DAILY. Quantity: 2 Refills: 1 Ordered: 01-Jun-2021 Ashlyn Gates PA-C Start : 01-Jun-2021 Active gabapentin 300 mg oral capsule (20 sources) Anti-epileptic Agent Start: 03-04-2019 End: 05-23-2023 take 1 capsule by mouth twice daily gabapentin (Neurontin) 300 mg capsule Take 1 capsule (300 mg) by mouth 2 times a day. 0 03/04/2019 05/23/2023 Discontinued (Therapy completed) End: 02-15-2023 take 1 capsule by mouth three times daily gabapentin 300 MG capsule Take 1 capsule by mouth Three times a day. 0 02/15/2023 Discontinued hydroCHLOROthiazide 25 mg oral tablet (6 sources) Thiazide Diuretic Start: 03-04-2019 take 1 tablet by mouth once daily hydroCHLOROthiazide 25 MG Oral Tablet TAKE 1 TABLET DAILY. Refills: 0 Start : 04-Mar-2019 Active INSULIN PEN NEEDLES ULTRA FINE PRESCRIPTION (2 sources) Start: 03-24-2022 End: 04-26-2022 INSULIN PEN NEEDLES ULTRA FINE PRESCRIPTION Indications: Metabolic syndrome 1 Device by Instructed route once a week. 1 Each 0 03/24/2022 04/26/2022 Discontinued Start: 03-24-2022 INSULIN PEN NE EDLES ULTRA FINE PRESCRIPTION Indications: Metabolic syndrome 1 Device by Instructed route once a week. 1 Each 0 03/24/2022 Active losartan potassium 50 mg oral tablet (20 sources) Angiotensin 2 Receptor Isabel Start: 03-04-2019 End: 08-07-2024 take 1 tablet by mouth twice daily Losartan 50 mg tablet Discontinued 50 mg PO TWICE A DAY July 22, 2024 1:00am July 24, 2024 1:22pm Start: 03-04-2019 take 1 tablet by marv th once daily Losartan Potassium 50 MG Oral Tablet TAKE 1 TABLET DAILY. Quantity: 30 Refills: 11 Ashlyn Gates PA-C Start : 04-Mar-2019 Active losartan 50 mg o ral tablet Quantity: 0 Refills: 0 Ordered: 11-Apr-2022 Shital Anderson Generic Substitution Allowed meclizine hydrochloride 12.5 mg oral tablet (1 source) Antiemetic Start: 06-23-2023 End: 07-22-2024 take 1 tablet by mouth three times daily as needed for dizziness Meclizine 12.5 mg tablet Discontinued 12.5 mg PO THREE TIMES A DAY as needed for dizziness June 23, 2023 1:00am July 22, 2024 9:05pm methylPREDNISolone 4 MG Oral Tablet Therapy Pack (1 source) Start: 05-11-2021 methylPREDNISolone 4 MG Oral Tablet Therapy Pack as directed on package Quantity: 1 Refills: 0 Ordered: 11-May-2021 Ashlyn Gates PA-C Start : 11-May-2021 Active metoclopramide 5 mg oral tablet (4 sources) Dopamine-2 Receptor Antagonist Start: 09-02-2022 End: 07-22-2024 take 1 tablet by mouth three times daily 30 minutes before mealtime for nausea and vomiting Metoclopramide Hcl (Reglan) 5 mg tablet Discontinued 5 mg PO THREE TIMES A DAY as needed for nausea and vomiting September 02, 2022 12:00am July 22, 2024 9:05pm administer 30 minutes before meals metroNIDAZOLE 500 mg oral tablet (1 source) Nitroimidazole Antimicrobial Start: 11-04-2021 metroNIDAZOLE 500 MG Oral Tablet Quantity: 14 Refills: 0 Ordered: 04-Nov-2021 DO Start : 04-Nov-2021 Complete norethindrone 0.35 mg oral tablet (5 sources) Start: 05-03-2023 End: 06-19-2024 take 1 tablet by mouth once daily Deblitane 0.35 mg tablet Take 1 tablet (0.35 mg) by mouth once daily. 05/03/2023 06/19/2024 Discontinued (Med List Cleanup) Start: 02-05-2023 End: 02-15-2023 take 1 tablet by mouth once daily Deblitane 0.35 MG tablet Take 1 tablet by mouth daily. 0 02/05/2023 02/15/2023 Discontinued (Duplicate (suppress cancel msg)) ondansetron 4 mg oral tablet (5 sources) Serotonin-3 Receptor Antagonist Start: 09-02-2022 End: 07-22-2024 take 1 tablet by mouth every eight hours as needed for nausea and vomiting Ondansetron Hcl 4 mg tablet Discontinued 4 mg PO Q8H as needed for nausea and vomiting April 19, 2024 11:27am July 22, 2024 9:05pm phentermine hydrochloride 37.5 mg oral capsule (20 sources) Sympathomimetic Amine Anorectic Start: 11-02-2021 End: 01-25-2022 Adipex-P 37.5 MG Oral Capsule TAKE 1 CAPSULE DAILY- DR CELY MERIDA Quantity: 30 Refills: 0 Ordered: 02-Nov-2021 DO Start : 02-Nov-2021 End : 25-Jan-[address] KRISTAL MERIDA Start: 09-29-2021 End: 12-25-2021 take 60-69.9 tablets by mouth once daily before breakfast phentermine 37.5 MG tablet Indications: Class 3 severe obesity with serious comorbidity and body mass index (BMI) of 60.0 to 69.9 in adult, unspecified obesity type Take 1 tablet by mouth every morning before breakfast. 30 tablet 0 10/27/2021 11/25/2021 Discontinued (Reorder) Start: 08-06-2020 End: 12-29-2020 take 60-69.9 tablets by mouth once daily before breakfast phentermine 37.5 MG tablet Indications: Class 3 severe obesity with serious comorbidity and body mass index (BMI) of 60.0 to 69.9 in adult, unspecified obesity type Take 1 tablet by mouth every morning before breakfast. 30 tablet 0 10/02/2020 12/22/2020 Discontinued 24 hr phentermine 15 mg / topiramate 92 mg extended release oral capsule (20 sources) Sympathomimetic Amine Anorectic Start: 01-26-2022 End: 03-26-2022 take 1 tablet by mouth once daily Phentermine-Topiramate (Qsymia) 15-92 MG Cap SR 24HR Indications: BMI 50.0-59.9, adult Take 1 tablet by mouth daily. 30 capsule 0 02/24/2022 03/24/2022 Discontinued Start: 12-27-2021 End: 01-26-2022 take 1 capsule by mouth once daily Phentermine-Topiramate (Qsymia) 11.25-69 MG Cap SR 24HR Indications: BMI 50.0-59.9, adult Take 1 capsule by mouth daily. 30 capsule 0 12/27/2021 01/26/2022 Discontinued Start: 06-03-2021 End: 10-02-2021 take 60-69.9 capsules by mouth once daily Phentermine-Topiramate (Qsymia) 15-92 MG Cap SR 24HR Indications: Class 3 severe obesity with serious comorbidity and body mass index (BMI) of 60.0 to 69.9 in adult, unspecified obesity type Take 1 tablet by mouth daily. 30 capsule 0 09/02/2021 09/29/2021 Discontinued Start: 04-30-2021 End: 05-30-2021 take 60-69.9 capsules by mouth once daily Phentermine-Topiramate (Qsymia) 15-92 MG Cap SR 24HR Indications: Class 3 severe obesity with serious comorbidity and body mass index (BMI) of 60.0 to 69.9 in adult, unspecified obesity type Take 1 tablet by mouth daily. 30 capsule 0 04/30/2021 05/30/2021 Active Start: 03-25-2021 take [address] [facility] once daily Qsymia 7.5-46 MG Oral Capsule Extended Release 24 Hour TAKE 1 CAPSULE Daily Quantity: 0 Refills: 0 Ordered: 25-Mar-2021 DO Start : 25-Mar-[address] FABI GIRALDO - [facility] (WEIGHT LOSS) Start: 03-11-2021 End: 04-30-2021 take 60-69.9 capsules by mouth once daily Phentermine-Topiramate (Qsymia) 11.25-69 MG Cap SR 24HR Indications: Class 3 severe obesity with serious comorbidity and body mass index (BMI) of 60.0 to 69.9 in adult, unspecified obesity type Take 1 tablet by mouth daily. 30 capsule 0 03/11/2021 04/30/2021 Discontinued Start: 12-22-2020 End: 01-21-2021 take 60-69.9 capsules by mouth once daily Phentermine-Topiramate (Qsymia) 7.5-46 MG Cap SR 24HR Indications: Class 3 severe obesity with serious comorbidity and body mass index (BMI) of 60.0 to 69.9 in adult, unspecified obesity type Take 1 tablet by mouth daily. 30 capsule 0 12/22/2020 01/21/2021 Active Start: 12-22-2020 End: 01-05-2021 take 60-69.9 capsules by mouth once daily Phentermine-Topiramate (Qsymia) 3.75-23 MG Cap SR 24HR Indications: Class 3 severe obesity with serious comorbidity and body mass index (BMI) of 60.0 to 69.9 in adult, unspecified obesity type Take 1 tablet by mouth daily for 14 days. 14 capsule 0 12/22/2020 01/05/2021 Active predniSONE 10 mg oral tablet (4 sources) Start: 05-18-2022 End: 07-22-2024 take 1 tablet by mouth twice daily Prednisone 10 mg tablet Discontinued 10 mg PO TWICE A DAY May 18, 2022 1:00am July 22, 2024 9:05pm 0.25 mg, 0.5 mg dose 1.5 ml semaglutide 1.34 mg/ml pen injector (2 sources) Start: 03-24-2022 End: 04-26-2022 Semaglutide,0.25 or 0.5MG/DOS, (Ozempic, 0.25 or 0.5 MG/DOSE,) 2 MG/1.5ML Solution Pen-injector Indications: Metabolic syndrome Inject 0.25 mg under the skin once a week. 1.5 mL 0 03/24/2022 04/26/2022 Discontinued sucralfate 1000 mg oral tablet (4 sources) Aluminum Complex Start: 11-02-2021 End: 05-03-2022 take 1 tablet by mouth four times daily at bedtime Sucralfate 1 GM Oral Tablet TAKE 1 TABLET 4 TIMES DAILY, BEFORE MEALS AND AT BEDTIME. Quantity: 120 Refills: 0 Ordered: 02-Nov-2021 Ashlyn Gates PA-C Start : 02-Nov-2021 End : 03-May-2022 Complete tiZANidine 2 mg oral tablet (20 sources) Central alpha-2 Adrenergic Agonist Start: 03-04-2019 End: 05-23-2023 take 1 tablet by mouth twice daily tiZANidine (Zanaflex) 2 mg tablet Take 1 tablet (2 mg) by mouth 2 times a day. 0 03/04/2019 05/23/2023 Discontinued (Therapy completed) Start: 03-04-2019 take 1 tablet by marv once daily as needed tiZANidine HCl - 2 MG Oral Tablet TAKE TABLET Daily PRN Refills: 0 DO Start : 04-Mar-2019 Active topiramate 25 mg oral tablet (16 sources) Start: 03-24-2022 End: 04-26-2022 take 1 tablet by mouth twice daily topiramate 25 MG tablet Indications: Metabolic syndrome Take 1 tablet by mouth 2 times daily. 60 tablet 1 03/24/2022 04/26/2022 Discontinued Start: 11-25-2021 take 60-69.9 tablets by mouth twice daily topiramate 25 MG tablet Indications: Class 3 severe obesity with serious comorbidity and body mass index (BMI) of 60.0 to 69.9 in adult, unspecified obesity type Take 2 tablets by mouth 2 times daily. 60 tablet 0 11/25/2021 Active Start: 09-29-2021 End: 01-25-2022 Topiramate 50 MG Oral Tablet TAKE 1 AT BEDTIME- DR FABI ZAMAN Quantity: 0 Refills: 0 Ordered: 27-Oct-2021 DO Start : 27-Oct-2021 End : 25-Jan-[address] GIRALDO FROM [facility] Start: 11-24-2020 End: 12-29-2020 Topiramate 25 MG Oral Tablet Quantity: 60 Refills: 0 Ordered: 24-Nov-2020 DO Start : 24-Nov-2020 End : 29-Dec-2020 Complete Start: 11-24-2020 End: 12-22-2020 take 60-69.9 tablets by mouth twice daily topiramate 25 MG tablet Indications: Class 3 severe obesity with serious comorbidity and body mass index (BMI) of 60.0 to 69.9 in adult, unspecified obesity type Take 1 tablet by mouth 2 times daily. 60 tablet 0 11/24/2020 12/22/2020 Discontinued KLAUS 3-0.02 MG Oral Tablet (15 sources) Start: 10-20-2020 take 1 tablet by mouth once daily KLAUS 3-0.02 MG Oral Tablet TAKE 1 TABLET DAILY. Quantity: 0 Refills: 0 Ordered: 18-Nov-2020 DO Start : 20-Oct-2020 Active zonisamide 25 mg oral capsule (7 sources) Anti-epilepti c Agent Start: 07-18-2022 End: 02-15-2023 take 1 capsule by mouth at bedtime, then take 1 capsule by mouth every week, then take 4 capsules by mouth at bedtime zonisamide 25 MG capsule TAKE 1 CAPSULE BY MOUTH AT BEDTIME. INCREASE by ONE CAPSULE EVERY WEEK until taking FOUR CAPSULES AT BEDTIME 0 07/18/2022 02/15/2023 Discontinued Problems Active Problems Problem Classification Problem Date Documented Date Episodic/Chronic Abdominal pain (7 sources) Epigastric pain; Translations: [Epigastric pain] 09-03-2022 Episodic Acute bronchitis (6 sources) Acute bronchitis; Translations: [Acute bronchitis, unspecified] Onset: 10-18-2022 05-18-2022 Episodic Adjustment disorders (1 source) Stress; Translations: [Reaction to severe stress, unspecified] Chronic Anxiety disorders (20 sources) Mixed anxiety and depressive disorder; Translations: [Other specified anxiety disorders] Onset: 08-06-2020 08-06-2020 Chronic Cardiac dysrhythmias (17 sources) Paroxysmal atrial fibrillation; Translations: [Paroxysmal atrial fibrillation] Onset: 07-30-2024 07-30-2024 Chronic Cardiac dysrhythmias (7 sources) Palpitations; Translations: [Palpitations] Onset: 08-02-2024 07-30-2024 Episodic Contraceptive and procreative management (20 sources) Patient encounter status; Translations: [Unspecified contraceptive management] Episodic Diseases of white blood cells (3 sources) Leukocytosis; Translations: [Elevated white blood cell count, unspecified] Onset: 08-02-2024 07-23-2024 Chronic Disorders of lipid metabolism (20 sources) Hypercholesterolemia; Translations: [Pure hypercholesterolemia] Onset: 10-27-2022 11-01-2022 Chronic E Codes: Adverse effects of medical drugs (3 sources) Adverse reaction to drug; Translations: [Adverse effect of unspecified drugs, medicaments and biological substances, initial encounter] Onset: 08-02-2024 08-01-2024 Episodic Essential hypertension (20 sources) Benign essential hypertension; Translations: [Essential (primary) hypertension] Onset: 08-06-2020 08-06-2020 Chronic Influenza (5 sources) Influenza due to Influenza A virus; Translations: [Influenza due to other identified influenza virus with other respiratory manifestations] 05-18-2022 Episodic Malaise and fatigue (4 sources) Fatigue; Translations: [Other fatigue] Onset: 04-11-2022 Episodic Miscellaneous mental health disorders (20 sources) Binge eating disorder; Translations: [Binge eating disorder] Onset: 12-08-2023 Chronic Mood disorders (20 sources) Mild major depression, single episode; Translations: [Major depressive affective disorder, single episode, mild] Onset: 10-27-2022 11-01-2022 Chronic Mycoses (9 sources) Candidiasis of vagina; Translations: [Candidiasis of vulva and vagina] Episodic Nonspecific chest pain (2 sources) Chest discomfort; Translations: [Other chest pain] Onset: 08-13-2024 08-09-2024 Episodic Other connective tissue disease (20 sources) Spasm; Translations: [Spasm of muscle] Episodic Other connective tissue disease (1 source) Fibromyalgia; Translations: [Fibromyalgia] Onset: 01-10-2023 Episodic Other inflammatory condition of skin (20 sources) Sunburn of second degree; Translations: [Sunburn of second degree] Episodic Other lower respiratory disease (1 source) Pulmonary edema; Translations: [Chronic pulmonary edema] 08-09-2024 Chronic Other lower respiratory disease (2 sources) Dyspnea on exertion; Translations: [Other forms of dyspnea] 08-01-2024 Episodic Other lower respiratory disease (1 source) Dyspnea; Translations: [Shortness of breath] 08-07-2024 Episodic Other lower respiratory disease (1 source) Shortness of breath; Translations: [Shortness of breath] Onset: 08-16-2024 Episodic Other lower respiratory disease (1 source) Other forms of dyspnea; Translations: [Other forms of dyspnea] Onset: 08-02-2024 Episodic Other non-traumatic joint disorders (20 sources) Acute ankle pain; Translations: [Pain in joint, ankle and foot] Episodic Other nutritional; endocrine; and metabolic disorders (20 sources) Morbid obesity; Translations: [Morbid (severe) obesity due to excess calories] Onset: 08-06-2020 08-06-2020 Chronic Other nutritional; endocrine; and metabolic disorders (20 sources) Severe obesity; Translations: [Morbid (severe) obesity due to excess calories] Onset: 10-27-2022 Chronic Other nutritional; endocrine; and metabolic disorders (18 sources) Body mass index 40+ - severely obese; Translations: [Body Mass Index 50.0-59.9, adult] Chronic Other nutritional; endocrine; and metabolic disorders (1 source) Metabolic syndrome X; Translations: [Metabolic syndrome] Chronic Other nutritional; endocrine; and metabolic disorders (7 sources) Drug-induced obesity; Translations: [Drug-induced obesity] Onset: 10-27-2022 11-01-2022 Chronic Other nutritional; endocrine; and metabolic disorders (7 sources) Body mass index (BMI) 60.0-69.9, adult; Translations: [Body mass index (BMI) 60.0-69.9, adult] Onset: 07-30-2024 Chronic Other nutritional; endocrine; and metabolic disorders (5 sources) Morbid (severe) obesity due to excess calories; Translations: [Morbid (severe) obesity due to excess calories (Multi)] Onset: 07-30-2024 Chronic Other upper respiratory infections (15 sources) Acute maxillary sinusitis; Translations: [Acute maxillary sinusitis, unspecified] Onset: 04-11-2022 Episodic Residual codes; unclassified (5 sources) Obstructive sleep apnea syndrome; Translations: [Obstructive sleep apnea (adult) (pediatric)] Onset: 09-11-2024 09-11-2024 Chronic Residual codes; unclassified (2 sources) Obstructive sleep apnea (adult) (pediatric); Translations: [Obstructive sleep apnea (adult) (pediatric)] Onset: 09-11-2024 Chronic Residual codes; unclassified (2 sources) Family history of sleep apnea; Translations: [Family history of epilepsy and other diseases of the nervous system] 07-30-2024 Episodic Spondylosis; intervertebral disc disorders; other back problems (20 sources) Degeneration of lumbar intervertebral disc; Translations: [Other intervertebral disc degeneration, lumbar region] Onset: 08-06-2020 08-06-2020 Chronic Unclassified (2 sources) ? URI 04-11-2022 Comment on above: ? URI Unclassified (1 source) FUV 6 MONTHS 01-25-2022 Comment on above: FUV 6 MONTHS Unclassified (1 source) 6 MONTH FU W LABS AT 11-02-2021 Comment on above: 6 MONTH FU W LABS AT Unclassified (1 source) Cough, unspecified; Translations: [Cough, unspecified] Onset: 10-18-2022 Unclassified (1 source) Binge eating disorder, unspecified; Translations: [Binge eating disorder, unspecified] Onset: 03-07-2024 Unclassified (1 source) Call later today or tomorrow to set up an appointment to be seen in 3 weeks Unclassified (1 source) Other persistent atrial fibrillation; Translations: [Other persistent atrial fibrillation] Onset: 08-02-2024 Urinary tract infections (1 source) Acute cystitis; Translations: [Acute cystitis with hematuria] Episodic Viral infection (1 source) Acute viral disease; Translations: [Viral infection, unspecified] 08-12-2023 Episodic Past or Other Problems Problem Classification Problem Date Documented Da te Episodic/Chronic Allergic reactions (2 sources) Dermatitis, unspecified; Translations: [Dermatitis, unspecified] Onset: 07-02-2024 Episodic Diabetes mellitus without complication (20 sources) Impaired glucose tolerance; Translations: [Impaired glucose tolerance (oral)] Onset: 08-06-2020 08-06-2020 Episodic Other circulatory disease (1 source) Other specified symptoms and signs involving the circulatory and respiratory systems; Translations: [Oth symptoms and signs involving the circ and resp systems] Onset: 04-11-2022 Episodic Other connective tissue disease (20 sources) Fibromyalgia; Translations: [Fibromyalgia] Onset: 08-06-2020 08-06-2020 Episodic Other connective tissue disease (1 source) Other muscle spasm; Translations: [Other muscle spasm] Onset: 01-25-2022 Episodic Other disorders of stomach and duodenum (20 sources) Indigestion; Translations: [Dyspepsia and other specified disorders of function of stomach] Onset: 10-27-2022 11-01-2022 Episodic Other hematologic conditions (20 sources) Ferritin level low; Translations: [Abnormal level of blood mineral] Onset: 08-06-2020 08-06-2020 Episodic Other lower respiratory disease (20 sources) Persistent cough; Translations: [Cough] Onset: 08-03-2021 Resolved: 10-27-2022 08-03-2021 Episodic Other lower respiratory disease (4 sources) Snoring; Translations: [Snoring] Onset: 07-30-2024 07-30-2024 Episodic Other lower respiratory disease (2 sources) Snoring; Translations: [Snoring] Onset: 07-30-2024 Episodic Other nervous system disorders (20 sources) Numbness of foot ; Translations: [Disturbance of skin sensation] Onset: 10-27-2022 Resolved: 10-27-2022 10-27-2022 Episodic Other screening for suspected conditions (not mental disorders or infectious disease) (20 sources) Decreased vitamin B>12<; Translations: [Cancer cervix - screening done] Onset: 10-27-2022 11-01-2022 Episodic Other skin disorders (20 sources) Acanthosis nigricans; Translations: [Acquired acanthosis nigricans] Onset: 07-06-2021 07-06-2021 Episodic Pleurisy; pneumothorax; pulmonary collapse (18 sources) Pleurisy; Translations: [Pleurisy without mention of effusion or current tuberculosis] Onset: 10-27-2022 Resolved: 10-27-2022 10-27-2022 Episodic Residual codes; unclassified (20 sources) Edema of lower extremity; Translations: [Localized edema] Onset: 08-06-2020 08-06-2020 Episodic Residual codes; unclassified (20 sources) Localized edema; Translations: [Bilateral lower limb edema] Onset: 12-22-2020 Resolved: 10-27-2022 12-22-2020 Episodic Residual codes; unclassified (20 sources) Reduced libido; Translations: [Decreased libido] Onset: 12-22-2020 Resolved: 10-27-2022 12-22-2020 Episodic Residual codes; unclassified (1 source) Decreased libido; Translations: [Decreased libido] Onset: 01-25-2022 Episodic Residual codes; unclassified (4 sources) Family history of epilepsy and other diseases of the nervous system; Translations: [Family history of epilepsy and other diseases of the nervous system] Onset: 07-30-2024 Episodic Spondylosis; intervertebral disc disorders; other back problems (20 sources) Chronic low back pain; Translations: [Radiculopathy, lumbar region] Onset: 10-27-2022 10-27-2022 Episodic Sprains and strains (4 sources) Sprain of unspecified ligament of right ankle, initial encounter; Translations: [Unspecified sprain of right foot, initial encounter] Onset: 01-21-2024 Episodic Unclassified (8 sources) Onset: 11-01-2022 Resolved: 10-30-2024 11-01-2022 Unclassified (1 source) Binge eating disorder, unspecified; Translations: [Binge eating disorder, unspecified] Onset: 08-07-2024 NEGATED: Highlighted row has not occurred!Residual codes; unclassified (20 sources) Disease Episodic Results Test Name Value Interpretation Reference Range Facility Cardiology Visit Reporton Cardiology Visit Report [facility] [address] [place], [place] [address] OFFICE VISIT Date of Service: 09/23/24 MR#: [id number] Acct: [id number] Name: YEMI JC Rep #: [id number] : 1995 Provider: MOOKIE adams Age/Sex: 29/F [place] [facility] [place]: Signed HPI HPI History of Present Illness Details: This is a 29-year-old female who presents today for cardiovascular follow-up visit. She was recently hospitalized with new onset atrial fibrillation. Patient presented to the emergency department July 23 with new onset atrial for with a heart rate of 160 bpm. She was placed on oral anticoagulation due to a NOS2SI4-AJLo score of 2. The patient is morbidly obese and had been on stimulant medications to treat her binge eating. Her rate was controlled in the hospital with a combination of diltiazem and metoprolol but she remained in atrial fibrillation and was discharged to home. She presented to the emergency department again complaining of PND and orthopnea. She was given IV Lasix which marked improvement in her chest congestion. The patient had a CTA of urine drug screen and was not infected on her initial presentation. It appears that her atrial fibrillation probably started 3 days prior to her hospitalization. Patient's hemoglobin was 11 when she was admitted. Patient's echocardiogram showed no significant valvular heart disease no evidence of diastolic dysfunction and EF of 65% with normal atria. This was done while she was hospitalized 07/22/2024. The patient does have a history of obstructive sleep apnea and is being worked up for CPAP therapy. She does monitor her heart rate and rhythm with her watch. From a cardiac standpoint, the patient is doing well. She denies any palpitations, chest pain, pressure or heaviness. She denies SOB, Orthopnea, and PND. She does not have bleeding issues; no blood in urine, stool, or nosebleeds. She denies any decrease in energy level, myalgias, or claudication. She does not have edema, or sudden weight gain. She denies lightheadedness, dizziness, syncopal or near syncopal episodes, and headaches. Intake Vital Signs 08/15/24 09:49 09/23/24 09:00 Height 5 ft 5 in 5 ft 5 in Weight: 360 lb 380 lb BMI 59.9 63.2 BP 138/88 H 128/84 H Blood Pressure Location Lt brachial Lt brachial Position Sitting Sitting Respiration 18 18 Pulse 68 72 Pulse Source NIBP Monitor Pulse Oximetry (%) 92 Intake Visit Reasons: 6 W FU/SEE NOTE FROM Merchandise Clerk Required: No Is patient in pain?: No Allergies No Known Allergies Allergy (Verified 09/23/24 16:01) Medications ???Medication ???Instructions ???Recorded ???Confirmed ???Type buspirone 30 mg tablet 30 mg PO BID anxiety 07/22/2408/28 History clotrimazole-betamethaso ne 1 1 applic topical BID PRN PRN rash 07/22/24 09/23/24 History %-0.05 % topical cream cyanocobalamin (vitamin B-12) 1,000 mcg PO DAILY vitamin 5 09/23/24 History 1,000 mcg tablet omeprazole 20 mg capsule,delayed 20 mg PO BID reflux 07/22/2409/23 History release vilazodone 20 mg tablet 20 mg PO DAILY mental health 07/2209/23/24 History diltiazem HCl 180 mg 180 mg PO QDAY #90 caps 08/08/24 0 09/23/24 Rx capsule,extended release 24 hr apixaban 5 mg tablet (Eliquis) 5 mg PO BID #180 tabs 09/23/24 Rx furosemide 40 mg tablet (Lasix) 40 mg PO .PRN SOB/Weight Gain #30 09/23/24 09/23/24 Rx tabs metoprolol tartrate 100 mg tablet 100 mg PO BID #180 tabs 09/23/24 09/23/24 Rx Ejection fraction %: 65 Have you fallen in the past year?: No PFSH Medical History Morbid obesity with BMI of 60.0-69.9, adult Atrial fibrillation with rapid ventricular response Dyspnea on exertion Palpitations Essential hypertension Surgical History History of appendectomy Social History household members: significant other housing: house Smoking Status: Never smoker ROS Const Const: Negative for fatigue, weakness, headache(s) or frequent falls Eyes Eyes: Negative for blurry vision ENT ENT: Negative for headache(s), dizziness or Nosebleed/epistaxis Cardio Chest Pain: No Palpitations: No Edema: None Muscle aches with walking: None Resp Respiratory: Negative for SOB with activity, SOB at rest or SOB orthopnea SOB lying down GI GI: Negative nausea, vomiting, heartburn, bright, red blood in stools or black,tarry stools : Negative for hematuria Neuro Neuro: Negative for dizziness, lightheadedness, near syncope, syncope, frequent falls, headache(s), weakness or blurry vision Endo Endo: Negative for f (more content not included)... Normal [facility] 12 Lead E[place] [facility] [place] 08-15-2024 12 Lead EKG performed by [facility] [address] [place] [address] 12 Lead EKG performed by [facility] [place] 08/15/24 0949 MR#: [id number] Acct: [id number] Name: YEMI JC Rep #: [id number] : 1995 29 From: Chucky Thakkar MD Attending Dr: Dr. Chucky Thakkar MD Status: D EP AMB Ordering Dr: Chucky Thakkar MD Date: 08/15/24 [place] [facility] [place] Sex: F C Admitted: [facility]12 Lead EKG performed by [facility] ECG Report Interpretation --Sinus Rhythm - Negative precordial T-waves -Normal for age. PROBABLY NORMAL FOR AGEElectronically signed on 10/23/2024 at 13:[address] Marcelino Noel Software Version [id number] 10/23/24 1317 Date Chucky Thakkar MD CC: JOHN Ramirez Date Dictated: 08/15/24948 Date Transcribed: 08/15/24948 Ncqa Specialist: KOJO Signed Normal [facility] Cardiology Visit Reporton Cardiology Visit Report [facility] [address] [place] [address] OFFICE VISIT Date of Service: 08/15/24 MR#: [id number] Acct: [id number] Name: YEMI JC Rep #: [id number] : 1995 Provider: Dr. Chucky delgado MD Age/Sex: 29/F Location[place] [facility] [place] Status: Signed with Addenda ADDENDUM by Dr. Chucky Thakkar MD on 09/12/24 at 1406 Addendum Addendum Details:: Diagnosis: New onset atrial fibrillation Assessment and Plan Assessment and Plan Orders: Orders 12 Lead EKG performed by [facility] [place] 08/15/24 I48.91 - Unspecified atrial fibrillation, R00.0 - Tachycardia, unspecified, R00.2 - Palpitations, R06.02 - Shortness of breath 09/12/24 1406 Date Chucky Thakkar MD cc: * Signed HPI HPI History of Present Illness Surgical H P: No Details: # HISTORY OF PRESENT ILLNESS The patient, a 29-year-old female with a past medical history of paroxysmal atrial fibrillation, hypertension, ADHD, and morbid obesity, presents with concerns about a recent episode of atrial fibrillation. Notably, she has no prior history of heart disease. She reports she was in atrial fibrillation for several weeks, a diagnosis which was managed conservatively, intending to conduct a cardioversion. However, she self-converted prior to the procedure last week. The cardioversion was not required, affirmatively suggesting an ability for spontaneous reversion to normal sinus rhythm. She attributes the possible onset of her palpitations to the use of the psychostimulant Vyvanse, which she had been taking at a high dosage for binge-eating disorder. The palpitations initiated after she attended a concert and continued despite a significant reduction in Vyvanse dosage for the past month. She has not experienced any further episodes of atrial fibrillation since this incident, though she does occasionally feel palpitations. The patient also noted that her grandmother has a history of atrial fibrillation. However, it developed at an older age and was associated with cardiac bypass surgery due to blockages. Given the differences in the clinical contexts, it is unclear if her grandmother's case holds significant hereditary implications for the patient. Her lifestyle also includes efforts to manage her weight, for which she had been seeing a weight loss specialist for several years with limited success. She suspects she may have a hormonal imbalance, possibly Polycystic Ovary Syndrome, which could be contributing to her difficulty losing weight. She mentioned a struggle with insurance coverage for weight loss surgery or medications. Additionally, she reported an upcoming repeat sleep study for evaluation, with a prior study being normal. The echocardiogram, conducted on July 23, 2024, revealed normal left and right atrial size, normal valve function, and an ejection fraction of 65%, suggesting a structurally normal heart despite her atrial fibrillation. # REVIEW OF SYSTEMS ROS: CONSTITUTIONAL: Negative for Chills, Fatigue, Fever. Positive for Weight gain. HEENT: Negative for Hearing loss, Sinus pressure, Visual changes. RESPIRATORY: Negative for Cough, Shortness of breath, Wheezing. CARDIOVASCULAR: Negative for Chest pain, Pain while walking, Edema. Positive for Palpitations. GASTROINTESTINAL: Negative for Abdominal pain, Blood in stool, Constipation, Diarrhea, Heartburn, Loss of appetite, Nausea, Vomiting. GENITOURINARY: Negative for Painful urination, Excessive amount of urine, Urinary frequency. METABOLIC/ENDOCRINE: Negative for Cold intolerance, Heat intolerance, Excessive thirst, Excessive hunger. NEUROLOGICAL: Negative for Dizziness, Extremity numbness, Extremity weakness, Headaches, Seizures, Tremors. PSYCHIATRIC: positive for Anxiety, Depression. INTEGUMENTARY: Negative for Breast discharge, Breast lump, Hives, Mole change(s), Rash, Skin lesion. MUSCULOSKELETAL: Negative for Back pain, Joint pain, Joint swelling, Neck pain. HEMATOLOGIC: Negative for Easily bleeds, Easily bruises, Lymphedema, Issues with blood clots. IMMUNOLOGIC: Negative for Food allergies, Seasonal allergies. # PHYSICAL EXAMINATION PE: GENERAL APPEARANCE: Well developed, well nourished, appearing appropriate for age. No signs of acute distress. Morbid obesity EYES: Conjunctiva appear normal, no signs of any abnormalities. EARS/NOSE/THROAT: No abnormal findings have been reported. The patient has clear speech. HEAD/NECK: Normocephalic, atraumatic. The neck is supple. RESPIRATORY: Normal breathing pattern, clear speech. No signs of dyspnea or use of accessory muscles for breathing observed. Lungs are clear on auscultation, no abnormal sounds heard. CARDIAC: The heart sounds are regular at a normal rate with good rhythm, no murmurs heard (more content not included)... Normal [facility] 12 Lead EKG performed by [facility] on 08-07-2024 12 Lead EKG performed by [facility] [address] [place] [address] 12 Lead EKG performed by [facility] 08/07/24 1316 MR#: [id number] Acct: [id number] Name: YEMI JC Rep #: [id number] : 1995 29 From: Danial Hernández MD Attending Dr: Dr. Danial Hernández MD Status: DE P AMB Ordering Dr: Danial Hernández MD Date: 08/07/24 [place] [facility] [place] Sex: F C Admitted: [facility]/12 Lead EKG performed by [facility] [place] ECG Report Interpretation --Sinus Tachycardia - Nonspecific T-abnormality. ABNORMAL Electronically signed on 08/07/2024 at 14:[address] Danial Hernández [employer] Software Version [id number] 08/07/24 1432 Date Dainal Hernández MD CC: JOHN Ramirez Date Dictated: 08/07/241315 Date Transcribed: 08/07/241315 Ncqa Specialist: Signed Normal [facility] Anion gap in Serum or Plasma Ordered By: Danial Hernández on 08-07-2024 Anion gap [Moles/Vol] 12 mmol/L 10-10 [facility] BUN/creatinine ratioOrdered By: Danial Hernández on 08-07-2024 Urea nitrogen/Creatinine [Mass ratio] 18.2 mg/mg 03-17 [facility] Basic Metabolic Profile (BMP )on 08-07-2024 BUN/CRE 18.2 RATIO Normal 03-17 [facility] Comment on above: Performed By: #### L 503.7505, L500.2500 #### [facility] [address] [place], [address] Calcium [Mass/Vol] 9.0 mg/dL Normal 7.6-11.0 [facility] Comment on above: Performed By: #### L 503.7505, L500.2500 #### [facility] [address] [place], [address] Chloride [Moles/Vol] 104 mmol/L Normal 98-108 [facility] Comment on above: Performed By: #### L 503.7505, L500.2500 #### [facility] [address] [place], [address] CO2 [Moles/Vol] 23.6 mmol/L Normal 21.0-32.0 [facility] Comment on above: Performed By: #### L 503.7505, L500.2500 #### [facility] [address] [place], [address] Creatinine [Mass/Vol] 0.71 mg/dL Normal 0.70-1.20 [facility] Comment on above: Performed By: #### L 503.7505, L500.2500 #### [facility] [address] [place], [address] GAP 12 Normal 5-15 [facility] Comment on above: Performed By: #### L 503.7505, L500.2500 #### [facility] [address] [place], [address] GFR/1.73 sq M.predicted among non-blacks MDRD (S/P/Bld) [Vol rate/Area] 119 mL/min/{1.73_m2} Normal >60 [facility] Comment on above: Result Comment: mL/m in/1.73m2 CKD-EPI Creatinine Equation (2020) Performed By: #### L 503.7505, L500.2500 #### [facility] [address] [place], [address] Glucose [Mass/Vol] 114 mg/dL High 70-99 [facility] Comment on above: Performed By: #### L 503.7505, L500.2500 #### [facility] [address] [place], [address] Potassium [Moles/Vol] 3.9 mmol/L Normal 3.3-5.1 [facility] Comment on above: Performed By: #### L 503.7505, L500.2500 #### [facility] [address] [place], [address] Sodium [Moles/Vol] 140 mmol/L Normal 133-145 [facility] Comment on above: Performed By: #### L 503.7505, L500.2500 #### [facility] [address] [place], [address] Urea nitrogen [Mass/Vol] 13 mg/dL Normal 4-19 [facility] Comment on above: Performed By: #### L 503.7505, L500.2500 #### [facility] [address] [place], [address] Carbon dioxide, total [Moles /volume] in Central venous bloodOrdered By: Danial Hernández on 08-07-2024 CO2 [Moles/Vol] 23.6 mmol/L 21.0-32.0 [facility] Chloride assayOrdered By: Paige Hernández on 08-07-2024 Chloride [Moles/Vol] 104 mmol/L 98-108 [facility] GFR/1.73 sq M.predicted marilou g non-blacks MDRD (S/P/Bld) [Vol rate/Area]Ordered By: Danial Hernández on 08-07-2024 Estimated GFR (MDRD) Non-Af Amer 119 >60 [facility] Comment on above: mL/min/1.73m2 CKD-EP I Creatinine Equation (2020) L503.7505on 08-07-2024 Natriuretic peptide B (Bld) [Mass/Vol] 799 pg/mL High <=450 [facility] Comment on above: Result Comment: Hear t Failure Unlikely: < 300 pg/mL Heart Failure Likely < 50 Years: > 450 pg/mL 50-75 Years: > 900 pg/mL >75 Years: > 1800 pg/mL Performed By: #### L 503.7505, L500.2500 #### [facility] [address] [place], [address] Laboratory - Chemistry and C hemistry - challengeOrdered By: Danial Hernández on 08-07-2024 Natriuretic peptide B (Bld) [Mass/Vol] 799 pg/mL High <450 [facility] Comment on above: Heart Failure Unlike ly: < 300 pg/mLHeart Failure Likely< 50 Years: > 450 pg/mL50-75 Years: > 900 pg/mL>75 Years: > 1800 pg/mL Potassium (Unsp spec) [Mass/ Vol]Ordered By: Danial Hernández on 08-07-2024 Potassium [Moles/Vol] 3.9 mmol/L 3.3-5.1 [facility] Serum creatinine measurement (mass/volume)Ordered By: Danial Hernández on 08-07-2024 Creatinine [Mass/Vol] 0.71 mg/dL 0.70-1.20 [facility] Serum glucose measurement (m ass/volume)Ordered By: Danial Hernández on 08-07-2024 Glucose [Mass/Vol] 114 mg/dL High 70-99 [facility] Serum or plasma calcium sarina urement (mass/volume)Ordered By: Danial Hernández on 08-07-2024 Calcium [Mass/Vol] 9.0 mg/dL 7.6-11.0 [facility] Serum or plasma urea nitroge n measurement (mass/volume)Ordered By: Danial Hernández on 08-07-2024 Urea nitrogen [Mass/Vol] 13 mg/dL 4-19 [facility] Sodium levelOrdered By: Tae Hernández on 08-07-2024 Sodium [Moles/Vol] 140 mmol/L 133-145 [facility] 12 Lead EKG performed by [facility] on 08-02-2024 12 Lead EKG performed by [facility] [address] [place] [place] [address] 12 Lead EKG performed by [facility] 08/02/24 1007 MR#: [id number] Acct: [id number] Name: YEMI JC Rep #: [id number] : 1995 29 From: Danial Hernández MD Attending Dr: Dr. Danial Hernández MD Status: DE P AMB Ordering Dr: Danial Hernández MD Date: 08/02/24 [place] [facility] [place] Sex: F C Admitted: [facility]/12 Lead EKG performed by [facility] ECG Report Interpretation --Atrial fibrillation ABNORMAL RHYTHMElectronically signed on 08/02/2024 at 09:[address] Danial Hernández [employer] Software Version [id number] 08/02/24 0944 Date Danial Hernández MD CC: JOHN Ramirez Date Dictated: 08/02/24 1007 Date Transcribed: 08/02/24 1007 Ncqa Specialist: Signed Normal [facility] Cardiology Visit Reporton Cardiology Visit Report [facility] [address] [place] [address] OFFICE VISIT Date of Service: 08/02/24 MR#: [id number] Acct: [id number] Name: YEMI JC Rep #: [id number] : 1995 Provider: Dr. Danial oswald MD Age/Sex: 29/F [place] [facility] [place] Status: Signed with Addenda ADDENDUM by Dr. Danial Hernández MD on 08/02/24 at 0938 Addendum Addendum Details:: ECG in the office today showed atrial fibrillation with a controlled ventricular rate of 93 bpm and otherwise unremarkable. Assessment and Plan Assessment and Plan (1) Atrial fibrillation: Status: Acute Qualifiers: Atrial fibrillation type: paroxysmal Qualified Code(s): I48.0 - Paroxysmal atrial fibrillation (2) Morbid obesity with BMI of 60.0-69.9, adult: Status: Acute Orders: Orders 12 Lead EKG performed by [facility] Today I48.91 - Unspecified atrial fibrillation Basic Metabolic Profile (BMP) 3 Weeks I48.91 - Unspecified atrial fibrillation Cardioversion Today I48.91 - Unspecified atrial fibrillation Medications: New furosemide (Lasix) 40 mg PO QAM 30 tabs 3RF Plan Details Follow Up: 4 Weeks (Direct-current cardioversion to be scheduled in mid August) 08/02/24 0938 Date Danial Hernández MD cc: JOHN Ramirez * Signed HPI HPI History of Present Illness Details: Patient comes in today is a 29-year-old white female recently discharged from the hospital with new onset atrial fibrillation. Patient presented to the emergency department July 23 with new onset atrial for with a heart rate of 160 bpm. She was placed on oral anticoagulation due to a XGQ8BO4-BFIs score of 2. The patient is morbidly obese and had been on stimulant medications to treat her binge eating. Her rate was controlled in the hospital with a combination of diltiazem and metoprolol but she remained in atrial fibrillation and was discharged to home. She presented to the emergency department again yesterday complaining of PND and orthopnea. She was given IV Lasix which marked improvement in her chest congestion. The patient had a CTA of urine drug screen and was not infected on her initial presentation. It appears that her atrial fibrillation probably started 3 days prior to her hospitalization. Patient's hemoglobin was 11 when she was admitted. It was 12.7 yesterday in the emergency department and her electrolytes and renal function are all normal. The patient was tearful in the office today she is tried what she described as everything to lose weight she sees a weight loss specialist. 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 The plan is to proceed with direct-current cardioversion after 4 to 6 weeks of oral anticoagulation. Patient's echocardiogram showed no significant valvular heart disease no evidence of diastolic dysfunction and EF of 65% with normal atria. This was done while she was hospitalized 07/22/2024. The patient does have a history of obstructive sleep apnea she is scheduled to be reevaluated as 5 years ago she was told she needed a tonsillectomy. Intake Vital Signs 07/22/24 23:07 08/01/24 06:41 08/02/24 09:01 Height 5 ft 5 in 5 ft 5 in 5 ft 5 in Weight: 360 lb BMI 59.9 BP 112/72 Blood Pressure Location Rt brachial Position Sitting Respiration 18 Pulse 81 Pulse Source Monitor Pulse Oximetry (%) 95 Oxygen Delivery Method room air Intake Visit Reasons: [facility] 07/24 AFIB Merchandise Clerk Required: No Accompanied by: Mother Is patient in pain?: No Allergies No Known Allergies Allergy (Verified 08/02/24 09:02) Medications ???Medication ???Instructions ???Recorded ???Confirmed ???Type buspirone 30 mg tablet 30 mg PO BID anxiety 07/22/2412/20 History clotrimazole-betamethaso ne 1 1 applic topical BID PRN PRN rash 07/22/24 08/02/24 History %-0.05 % topical cream cyanocobalamin (vitamin B-12) 1,000 mcg PO DAILY vitamin 5 08/02/24 History 1,000 mcg tablet omeprazole 20 mg capsule,delayed 20 mg PO BID reflux 07/22/2408/02 History release vilazodone 20 mg tablet 20 mg PO DAILY mental health 07/2208/02/24 History apixaban 5 mg tablet (Eliquis) 5 mg PO BID #60 tabs 07/24/2412/20 Rx diltiazem HCl 180 mg 180 mg PO DAILY #30 caps 07/24/24 08/02/24 Rx capsule,extended release 24 hr metoprolol tartrate 100 mg tablet 100 mg PO BID #60 tabs 07/24/24 0 08/02/24 Rx furosemide 40 mg tablet (Lasix) 40 mg PO QAM #30 tabs 08/02/2412/20 Rx Ejection fraction %: 65 Have you fallen in the past year?: No [facility] Medical History (Update (more content not included)... Normal [facility] Absolute neutrophil countOrd ered By: Jose Ramon Castro on 08-01-2024 Neutrophils (Bld) [#/Vol] 7.2 10*3/uL 2.0-7.7 [facility] Anion gap in Serum or Plasma Ordered By: Jose Ramon Castro on 08-01-2024 Anion gap [Moles/Vol] 15 mmol/L 5- [facility] BUN/creatinine ratioOrdered By: Jose Ramon Castro on 08-01-2024 Urea nitrogen/Creatinine [Mass ratio] 19.1 mg/mg - [facility] Basic Metabolic Profile (BMP )on 08-01-2024 BUN/CRE 19.1 RATIO Normal - [facility] Comment on above: Performed By: #### L 503.7505, L500.2500 #### [facility] [address] [place], [address] Calcium [Mass/Vol] 9.0 mg/dL Normal 7.6-11.0 [facility] Comment on above: Performed By: #### L 503.7505, L500.2500 #### [facility] [address] [place], [address] Chloride [Moles/Vol] 104 mmol/L Normal 98-108 [facility] Comment on above: Performed By: #### L 503.7505, L500.2500 #### [facility] [address] [place], [address] CO2 [Moles/Vol] 20.6 mmol/L Low 21.0-32.0 [facility] Comment on above: Performed By: #### L 503.7505, L500.2500 #### [facility] [address] [place], [address] Creatinine [Mass/Vol] 0.79 mg/dL Normal 0.70-1.20 [facility] Comment on above: Performed By: #### L 503.7505, L500.2500 #### [facility] [address] [place], [address] ECRCL 109.34 ml/min Normal 50-250 [facility] Comment on above: Performed By: #### L 503.7505, L500.2500 #### [facility] [address] [place], [address] GAP 15 Normal 5-15 [facility] Comment on above: Performed By: #### L 503.7505, L500.2500 #### [facility] [address] [place], [address] GFR/1.73 sq M.predicted among non-blacks MDRD (S/P/Bld) [Vol rate/Area] 105 mL/min/{1.73_m2} Normal >60 [facility] Comment on above: Result Comment: mL/m in/1.73m2 CKD-EPI Creatinine Equation (2020) Performed By: #### L 503.7505, L500.2500 #### [facility] [address] [place], [address] Glucose [Mass/Vol] 109 mg/dL High 70-99 [facility] Comment on above: Performed By: #### L 503.7505, L500.2500 #### [facility] [address] [place], [address] Potassium [Moles/Vol] 4.3 mmol/L Normal 3.3-5.1 [facility] Comment on above: Performed By: #### L 503.7505, L500.2500 #### [facility] [address] [place], [address] Sodium [Moles/Vol] 140 mmol/L Normal 133-145 [facility] Comment on above: Performed By: #### L 503.7505, L500.2500 #### [facility] [address] [place], [address] Urea nitrogen [Mass/Vol] 15 mg/dL Normal 4-19 [facility] Comment on above: Performed By: #### L 503.7505, L500.2500 #### [facility] [address] [place], [address] Basophil percentageOrdered B y: Jose Ramon Castro on 08-01-2024 Basophils/100 WBC (Bld) 0.8 % 0-[address] [facility] CBC W/Diff, Automatedon Absolute Lymph 3.61 X10 3/uL Normal 0.83-4.51 [facility] Comment on above: Performed By: #### L 503.7505, L500.2500 #### [facility] [address] [place], [address] Absolute Neut 7.2 X10 3/uL Normal 2.0-7.7 [facility] Comment on above: Performed By: #### L 503.7505, L500.2500 #### [facility] [address] [place], [address] Basophils/100 WBC (Bld) 0.8 % Normal 0-[address] [facility] Comment on above: Performed By: #### L 503.7505, L500.2500 #### [facility] [address] [place], [address] Eosinophils/100 WBC (Bld) 2.3 % Normal 0-5 [facility] Comment on above: Performed By: #### L 503.7505, L500.2500 #### [facility] [address] [place], [address] Erythrocyte distribution width (RBC) [Ratio] 13.8 % Normal 11.6-14.6 [facility] Comment on above: Performed By: #### L 503.7505, L500.2500 #### [facility] [address] [place], [address] Hematocrit (Bld) [Volume fraction] 38.2 % Normal 37-47 [facility] Comment on above: Performed By: #### L 503.7505, L500.2500 #### [facility] [address] [place], [address] Hemoglobin (Bld) [Mass/Vol] 12.7 g/dL Normal 12.0-15.0 [facility] Comment on above: Performed By: #### L 503.7505, L500.2500 #### [facility] [address] [place], [address] IG% 0.400 Normal 0.0-0.9 [facility] Comment on above: Result Comment: IG% - Immature Granulocytes (promyelocytes, myelocytes and metamyelocytes) > 1% indicates that a LEFT SHIFT is Present. Performed By: #### L 503.7505, L500.2500 #### [facility] [address] [place], [address] Lymphocytes/100 WBC (Bld) 30.4 % Normal 19-41 [facility] Comment on above: Performed By: #### L 503.7505, L500.2500 #### [facility] [address] [place], [address] MCH (RBC) [Entitic mass] 26.6 pg Low 27.0-32.0 [facility] Comment on above: Performed By: #### L 503.7505, L500.2500 #### [facility] [address] [place], [address] MCHC (RBC) [Mass/Vol] 33.2 g/dL Normal 32-36 [facility] Comment on above: Performed By: #### L 503.7505, L500.2500 #### [facility] [address] [place], [address] MCV (RBC) [Entitic vol] 80.1 fL Low 81-[address] [facility] Comment on above: Performed By: #### L 503.7505, L500.2500 #### [facility] [address] [place], [address] Monocytes/100 WBC (Bld) 5.2 % Normal 0-[address] [facility] Comment on above: Performed By: #### L 503.7505, L500.2500 #### [facility] [address] [place], [address] Neutrophils/100 WBC (Bld) 60.9 % Normal 47-70 [facility] Comment on above: Performed By: #### L 503.7505, L500.2500 #### [facility] [address] [place], [address] Nucleated RBC (Bld) [#/Vol] 0 10*3/uL Normal 0-5 [facility] Comment on above: Performed By: #### L 503.7505, L500.2500 #### [facility] [address] [place], [address] Platelet mean volume (Bld) [Entitic vol] 11.8 fL Normal 6.2-12.0 [facility] Comment on above: Performed By: #### L 503.7505, L500.2500 #### [facility] [address] [place], [address] Platelets (Bld) [#/Vol] 381 10*3/uL Normal 150-450 [facility] Comment on above: Performed By: #### L 503.7505, L500.2500 #### [facility] [address] [place], [address] RBC (Bld) [#/Vol] 4.77 10*6/uL Normal 4.2-5.4 [facility] Comment on above: Performed By: #### L 503.7505, L500.2500 #### [facility] [address] [place], [address] RDW SD 40.1 fl Normal 35.1-43.9 [facility] Comment on above: Performed By: #### L 503.7505, L500.2500 #### [facility] [address] [place], [place], [address] WBC (Bld) [#/Vol] 11.9 10*3/uL High 4.4-11.0 [facility] Comment on above: Performed By: #### L 503.7505, L500.2500 #### [facility] [address] [place], [address] Carbon dioxide, total [Moles /volume] in Central venous bloodOrdered By: Jose Ramon Castro on 08-01-2024 CO2 [Moles/Vol] 20.6 mmol/L Low 21.0-32.0 [facility] Chest 1 View (Portable)on Chest 1 View (Portable) [facility] Imaging Services [address] [place] [address] Chest 1 View (Portable) MR#: [id number] Acct: [id number] Name: YEMI JC Rep #: [id number] : 1995 F 29 From: Danial Barr i, MD PCP: JOHN Ramirez Status: [facility] ER Study: Chest 1 View (Portable) Date of Exam: 08/01/24 Exam# [id number] Ordering Dr: Jose Ramon Castro DO PROCEDURE: CHEST 1 VIEW (PORTABLE) REASON FOR EXAM: Shortness of breath. TECHNIQUE: Frontal view of the chest. COMPARISON: Chest x-ray dated 07/18/2024 FINDINGS: The cardiac silhouette is prominent. Increasing bilateral pulmonary infiltrates particularly within the lower lung zones. Follow-up until resolution is recommended. No pneumothorax. No acute osseous abnormality. RAD/Chest 1 View (Portable) IMPRESSION: Increasing bilateral pulmonary infiltrates particularly within the lower lungs. Follow-up until resolution is recommended. Reading Location: [id number] CC: Dr. Jose Ramon Castro DO; JOHN Ramirez Ncqa Specialist: Signed Normal [facility] Chloride assayOrdered By: Davis Castro on 08-01-2024 Chloride [Moles/Vol] 104 mmol/L 98-108 [facility] Emergency Department Summary on 08-01-2024 Emergency Department Summary [facility] Medical Records Department [address] [place] [address] Emergency Department Summary 08/01/24 MR#: [id number] Acct: [id number] Name: YEMI JC Rep #: [id number] : 1995 29 From: Jose Ramon Castro DO PCP: JOHN Ramirez Status:DEP ER Location: ED HPI History of Present Illness Chief Complaint: Chest Pain Informant: patient Narrative Narrative: 29-year-old female presenting to the emergency room with chest pain palpitations dyspnea. Patient was recently admitted to the hospital with new onset atrial fibrillation. She was started on metoprolol as well as Cardizem and Eliquis. Discharge heart rates of 100-1 10. She was to follow- up with cardiology on the but that appointment was moved to tomorrow. She notes at times she feels like she has forgotten to breathe and has to take a deep breath. She feels pressure in the chest. Continued palpitations. She is unsure if this is what A-fib should feel like. She denies any leg swelling. No cough or fever. Patient had a echocardiogram while she was in the hospital. She is following with Dr. Hernández. [facility] Medical History Atrial fibrillation with rapid ventricular response Dyspnea on exertion Palpitations Morbid obesity with BMI of 60.0-69.9, adult Essential hypertension Home Medications ???Medication ???Instructions ???Recorded ???Last Taken ???Type buspirone 30 mg tablet 30 mg PO BID anxiety 07/22/24/08/20 23:24 History clotrimazole-betamethaso ne 1 1 applic topical BID PRN PRN rash 07/22/24 Unknown History %-0.05 % topical cream cyanocobalamin (vitamin B-12) 1,000 mcg PO DAILY vitamin 5 Unknown History 1,000 mcg tablet omeprazole 20 mg capsule,delayed 20 mg PO BID reflux 07/22/24 Unkno wn History release vilazodone 20 mg tablet 20 mg PO DAILY mental health 07/22 Unknown History apixaban 5 mg tablet (Eliquis) 5 mg PO BID #60 tabs 07/24/24 Unkn own Rx diltiazem HCl 180 mg 180 mg PO DAILY #30 caps 07/24/24 Unknown Rx capsule,extended release 24 hr metoprolol tartrate 100 mg tablet 100 mg PO BID #60 tabs 07/24/24 U nknown Rx Allergy/AdvReac Type Severity Reaction Status Date / Time No Known Allergies Allergy Verified 08/01/24 06:46 Surgical History History of appendectomy Social History household members: significant other housing: house Smoking Status: Never smoker ROS ROS ED ROS Narrative Generalized fatigue Constitutional Constitutional ED: Denies chills, fever(s) or weight loss Eyes Eyes: Denies change in vision or diplopia ENT ENT ED: Denies ear pain, rhinorrhea or sore throat Cardiovascular Cardiovascular: Reports chest pain and palpitations; Denies orthopnea or racing heartbeat Respiratory/Chest Respiratory/Chest: Reports dyspnea; Denies cough or orthopnea Gastrointestinal Gastrointestinal: Denies abdominal pain, diarrhea, nausea or vomiting Genitourinary Genitourinary ED: Denies dysuria, hematuria or urinary frequency Musculoskeletal Musculoskeletal: Denies arthralgias or myalgias Integumentary Denies abscess or rash Neurologic Neurologic: Denies headache(s) or weakness Psychiatric Psychiatric: Denies anxiety, depression, suicidal ideation or suicidal thoughts Endocrine Endocrinology: Denies polydipsia, polyphagia or polyuria Allergic/Immunologic Allergic/Immunologic ED: Denies mouth swelling, tongue swelling or urticaria EXAM Physical Exam Const Vital Signs: 08/01/24 06:41 08/01/24 07:31 08/01/24 07:32 Temperature 97.9 F Temperature Source Oral Pulse Rate 113 H 119 H 109 H Respiratory Rate 18 26 H 24 H Blood Pressure 143/81 H 144/80 H 111/91 H Blood Pressure Mean 101 101 97 Pulse Ox 97 95 95 Oxygen Delivery Method Room Air 08/01/24 08:00 08/01/24 08:37 08/01/24 09:00 Temperature Temperature Source Pulse Rate 107 H 110 H 101 H Respiratory Rate 14 21 H 22 H Blood Pressure 135/102 H 148/102 H 148/102 H Blood Pressure Mean 113 117 117 Pulse Ox 98 95 97 Oxygen Delivery Method Room Air Room Air Positive well nourished, well developed and obese General Appearance ED: well developed and NAD Nutritional Appearance: obese HEENT Reports normocephalic, head/scalp atraumatic and moist mucous membranes Eyes PERRL and EOMs intact bilaterally Neck no lymphadenopathy, supple and no JVD Resp normal respiratory effort Resp Narrative: Few crackles at bases Cardio regular rhythm and no murmurs Rate: tachycardic Rhythm: abnormal rhythm irregularly irregular GI normal to inspection, nondistended, normoactive bowel so (more content not included)... Normal [facility] Eosinophil percentageOrdered By: Jose Ramon Castro on 08-01-2024 Eosinophils/100 WBC (Bld) 2.3 % 0-5 [facility] Erythrocyte distribution wid th ratioOrdered By: Jose Ramon Castro on 08-01-2024 Erythrocyte distribution width (RBC) [Ratio] 13.8 % 11.6-14.6 [facility] Erythrocyte distribution wid th standard deviationOrdered By: Jose Ramon Castro on 08-01-2024 Erythrocyte distribution width (RBC) [Entitic vol] 40.1 fL 35.1-43.9 [facility] Estimation of creatinine jordan aranceOrdered By: Jose Ramon Castro on 08-01-2024 Estimated Creatinine Clearance Calc 109.34 ml/min 50-250 [facility] GFR/1.73 sq M.predicted marilou g non-blacks MDRD (S/P/Bld) [Vol rate/Area]Ordered By: Jose Ramon Castro on 08-01-2024 Estimated GFR (MDRD) Non-Af Amer 105 >60 [facility] Comment on above: mL/min/1.73m2 CKD-EP I Creatinine Equation (2020) Hematocrit Auto (Bld) [Volum e fraction]Ordered By: Jose Ramon Castro on 08-01-2024 Hematocrit (Bld) [Volume fraction] 38.2 % 37-47 [facility] Hemoglobin measurementOrdere d By: Jose Ramon Castro on 08-01-2024 Hemoglobin (Bld) [Mass/Vol] 12.7 g/dL 12.0-15.0 [facility] Immature granulocytes/100 WB C Auto (Bld)Ordered By: Jose Ramon Castro on 08-01-2024 Immature granulocytes/100 WBC (Bld) 0.400 % 0.0-0.9 [facility] Comment on above: IG% - Immature Granu locytes (promyelocytes, myelocytes and metamyelocytes) > 1% indicates that a LEFT SHIFT is Present. L501.4021on 08-01-2024 Trop T High Sen < 6 Normal <=14 [facility] Comment on above: Performed By: #### L 501.4021 #### [facility] [address] [place], [place], [address] L503.7505on 08-01-2024 Natriuretic peptide B (Bld) [Mass/Vol] 1383 pg/mL High <=450 [facility] Comment on above: Result Comment: Hear t Failure Unlikely: < 300 pg/mL Heart Failure Likely < 50 Years: > 450 pg/mL 50-75 Years: > 900 pg/mL >75 Years: > 1800 pg/mL Performed By: #### L 503.7505, L500.2500 #### [facility] [address] [place], [place], [address] Laboratory - Chemistry and C hemistry - challengeOrdered By: Jose Ramon Castro on 08-01-2024 Natriuretic peptide B (Bld) [Mass/Vol] 1383 pg/mL High <450 [facility] Comment on above: Heart Failure Unlike ly: < 300 pg/mLHeart Failure Likely< 50 Years: > 450 pg/mL50-75 Years: > 900 pg/mL>75 Years: > 1800 pg/mL Lymphocytes Auto (Unsp spec) [#/Vol]Ordered By: Jose Ramon Castro on 08-01-2024 Lymphocytes (Bld) [#/Vol] 3.61 10*3/uL 0.83-4.51 [facility] Lymphocytes/100 WBC Auto (Un sp spec)Ordered By: Jose Ramon Castro on 08-01-2024 Lymphocytes/100 WBC (Bld) 30.4 % 19-41 [facility] MCV (mean corpuscular volume ) determinationOrdered By: Jose Ramon Castro on 08-01-2024 MCV (RBC) [Entitic vol] 80.1 fL Low 81-[address] [facility] Mean corpuscular hemoglobin (MCH) determinationOrdered By: Jose Ramon Castro on 08-01-2024 MCH (RBC) [Entitic mass] 26.6 pg Low 27.0-32.0 [facility] Mean corpuscular hemoglobin concentration (MCHC) determinationOrdered By: Jose Ramon Castro on 08-01-2024 MCHC (RBC) [Mass/Vol] 33.2 g/dL 32-36 [facility] Mean platelet volume determi nationOrdered By: Jose Ramon Castro on 08-01-2024 Platelet mean volume (Bld) [Entitic vol] 11.8 fL 6.2-12.0 [facility] Monocyte percentageOrdered B y: Jose Ramon Castro on 08-01-2024 Monocytes/100 WBC (Bld) 5.2 % 0-[address] [facility] Neutrophil percentageOrdered By: Jose Ramon Castro on 08-01-2024 Neutrophils/100 WBC (Bld) 60.9 % 47-70 [facility] No Panel InformationOrdered By: Jose Ramon Castro on 08-01-2024 Troponin T High Sensitivity < 6 ng/L <14 [facility] Nucleated red blood cell per centageOrdered By: Jose Ramon Castro on 08-01-2024 Nucleated RBC/100 WBC (Bld) [Ratio] 0 % 0-5 [facility] Platelet countOrdered By: Davis Castro on 08-01-2024 Platelets (Bld) [#/Vol] 381 10*3/uL 150-450 [facility] Potassium (Unsp spec) [Mass/ Vol]Ordered By: Jose Ramon Castro on 08-01-2024 Potassium [Moles/Vol] 4.3 mmol/L 3.3-5.1 [facility] RBC Auto (Bld) [#/Vol]Ordere d By: Jose Ramon Castro on 08-01-2024 RBC (Bld) [#/Vol] 4.77 10*6/uL 4.2-5.4 [facility] Serum creatinine measurement (mass/volume)Ordered By: Jose Ramon Castro on 08-01-2024 Creatinine [Mass/Vol] 0.79 mg/dL 0.70-1.20 [facility] Serum glucose measurement (m ass/volume)Ordered By: Jose Ramon Castro on 08-01-2024 Glucose [Mass/Vol] 109 mg/dL High 70-99 [facility] Serum or plasma calcium sarina urement (mass/volume)Ordered By: Jose Ramon Castro on 08-01-2024 Calcium [Mass/Vol] 9.0 mg/dL 7.6-11.0 [facility] Serum or plasma urea nitroge n measurement (mass/volume)Ordered By: Jose Ramon Castro on 08-01-2024 Urea nitrogen [Mass/Vol] 15 mg/dL 4-19 [facility] Sodium levelOrdered By: Jordan Castro on 08-01-2024 Sodium [Moles/Vol] 140 mmol/L 133-145 [facility] White blood cell (WBC) count Ordered By: Jose Ramon Castro on 08-01-2024 WBC (Bld) [#/Vol] 11.9 10*3/uL High 4.4-11.0 [facility] Absolute neutrophil countOrd ered By: Marlin Sidhu on 07-24-2024 Neutrophils (Bld) [#/Vol] 14.0 10*3/uL High 2.0-7.7 [facility] BUN/creatinine ratioOrdered By: Marlin Sidhu on 07-24-2024 Urea nitrogen/Creatinine [Mass ratio] 12.3 mg/mg 10-20 [facility] Basic Metabolic Profile (BMP )on 07-24-2024 CO2 [Moles/Vol] 19.1 mmol/L Low 21.0-32.0 [facility] Comment on above: Performed By: #### L 501.2300, L500.2500 #### [facility] [address] [place], [address] GAP 13 Normal 5-15 [facility] Comment on above: Performed By: #### L 501.2300, L500.2500 #### [facility] [address] [place], [address] Calcium [Mass/Vol] 8.7 mg/dL Normal 7.6-11.0 [facility] Comment on above: Performed By: #### L 501.2300, L500.2500 #### [facility] [address] [place], [address] Chloride [Moles/Vol] 105 mmol/L Normal 98-107 [facility] Comment on above: Performed By: #### L 501.2300, L500.2500 #### [facility] [address] [place], [address] EST GFR - AA TNP Normal >60 [facility] Comment on above: Performed By: #### L 501.2300, L500.2500 #### [facility] [address] [place], [address] Potassium [Moles/Vol] 3.9 mmol/L Normal 3.5-5.1 [facility] Comment on above: Performed By: #### L 501.2300, L500.2500 #### [facility] [address] [place], [address] Sodium [Moles/Vol] 137 mmol/L Normal 136-145 [facility] Comment on above: Performed By: #### L 501.2300, L500.2500 #### [facility] [address] [place], [address] Basophil percentageOrdered B y: Marlin Sidhu on 07-24-2024 Basophils/100 WBC (Bld) 0.3 % 0-[address] [facility] CBC W/Diff, Automatedon 06-30 Absolute Lymph 1.86 X10 3/uL Normal 0.83-4.51 [facility] Comment on above: Performed By: #### L 100.0100 #### [facility] [address] [place], [address] Absolute Neut 14.0 X10 3/uL High 2.0-7.7 [facility] Comment on above: Performed By: #### L 100.0100 #### [facility] [address] [place], [address] Basophils/100 WBC (Bld) 0.3 % Normal 0-[address] [facility] Comment on above: Performed By: #### L 100.0100 #### [facility] [address] [place], [address] Eosinophils/100 WBC (Bld) 0.4 % Normal 0-5 [facility] Comment on above: Performed By: #### L 100.0100 #### [facility] [address] [place], [address] Erythrocyte distribution width (RBC) [Ratio] 14.1 % Normal 11.6-14.6 [facility] Comment on above: Performed By: #### L 100.0100 #### [facility] [address] [place], [address] Hematocrit (Bld) [Volume fraction] 36.5 % Low 37-47 [facility] Comment on above: Performed By: #### L 100.0100 #### [facility] [address] [place], [address] Hemoglobin (Bld) [Mass/Vol] 11.9 g/dL Low 12.0-15.0 [facility] Comment on above: Performed By: #### L 100.0100 #### [facility] [address] [place], [address] IG% 0.400 Normal 0.0-0.9 [facility] Comment on above: Result Comment: IG% - Immature Granulocytes (promyelocytes, myelocytes and metamyelocytes) > 1% indicates that a LEFT SHIFT is Present. Performed By: #### L 100.0100 #### [facility] [address] [place], [address] Lymphocytes/100 WBC (Bld) 11.1 % Low 19-41 [facility] Comment on above: Performed By: #### L 100.0100 #### [facility] [address] [place], [address] MCH (RBC) [Entitic mass] 26.2 pg Low 27.0-32.0 [facility] Comment on above: Performed By: #### L 100.0100 #### [facility] [address] [place], [address] MCHC (RBC) [Mass/Vol] 32.6 g/dL Normal 32-36 [facility] Comment on above: Performed By: #### L 100.0100 #### [facility] [address] [place], [address] MCV (RBC) [Entitic vol] 80.2 fL Low 81-[address] [facility] Comment on above: Performed By: #### L 100.0100 #### [facility] [address] [place], [address] Monocytes/100 WBC (Bld) 4.1 % Normal 0-10 [facility] Comment on above: Performed By: #### L 100.0100 #### [facility] [facility] [address] [place], [address] Neutrophils/100 WBC (Bld) 83.7 % High 47-70 [facility] Comment on above: Performed By: #### L 100.0100 #### [facility] [address] [place], [address] Nucleated RBC (Bld) [#/Vol] 0 10*3/uL Normal 0-5 [facility] Comment on above: Performed By: #### L 100.0100 #### [facility] [address] [place], [address] Platelet mean volume (Bld) [Entitic vol] 11.2 fL Normal 6.2-12.0 [facility] Comment on above: Performed By: #### L 100.0100 #### [facility] [address] [place], [address] Platelets (Bld) [#/Vol] 296 10*3/uL Normal 150-450 [facility] Comment on above: Performed By: #### L 100.0100 #### [facility] [address] [place], [address] RBC (Bld) [#/Vol] 4.55 10*6/uL Normal 4.2-5.4 [facility] Comment on above: Performed By: #### L 100.0100 #### [facility] [address] [place], [address] RDW SD 40.9 fl Normal 35.1-43.9 [facility] Comment on above: Performed By: #### L 100.0100 #### [facility] [address] [place], [address] WBC (Bld) [#/Vol] 16.7 10*3/uL High 4.4-11.0 [facility] Comment on above: Performed By: #### L 100.0100 #### [facility] [address] [place], [address] Creatinine [Moles/Vol]Ordere d By: Marlin Sidhu on 07-24-2024 Creatinine [Mass/Vol] 0.6 mg/dL 0.6-1.0 [facility] Eosinophil percentageOrdered By: Marlin Sidhu on 07-24-2024 Eosinophils/100 WBC (Bld) 0.4 % 0-5 [facility] Erythrocyte distribution wid th ratioOrdered By: Marlin Sidhu on 07-24-2024 Erythrocyte distribution width (RBC) [Ratio] 14.1 % 11.6-14.6 [facility] Erythrocyte distribution wid th standard deviationOrdered By: Marlin Sidhu on 07-24-2024 Erythrocyte distribution width (RBC) [Entitic vol] 40.9 fL 35.1-43.9 [facility] Estimated glomerular filtrat ion rate (GFR) AmericanOrdered By: Marlin Siduh on 07-24-2024 Estimated GFR (MDRD) Amer TNP [facility] Comment on above: Test not performed Estimation of creatinine jordan aranceOrdered By: Marlin Sidhu on 07-24-2024 Estimated Creatinine Clearance Calc 226.81 ml/min [facility] GFR/1.73 sq M.predicted marilou g non-blacks MDRD (S/P/Bld) [Vol rate/Area]Ordered By: Marlin Sidhu on 07-24-2024 Estimated GFR (MDRD) Non-Af Amer 127 >60 [facility] Comment on above: mL/min/1.73m2 CKD-EP I Creatinine Equation (2020) Hematocrit Auto (Bld) [Volum e fraction]Ordered By: Marlin Sidhu on 07-24-2024 Hematocrit (Bld) [Volume fraction] 36.5 % Low 37-47 [facility] Hemoglobin measurementOrdere d By: Marlin Sidhu on 07-24-2024 Hemoglobin (Bld) [Mass/Vol] 11.9 g/dL Low 12.0-15.0 [facility] Immature granulocytes/100 WB C Auto (Bld)Ordered By: Marlin Sidhu on 07-24-2024 Immature granulocytes/100 WBC (Bld) 0.400 % 0.0-0.9 [facility] Comment on above: IG% - Immature Granu locytes (promyelocytes, myelocytes and metamyelocytes) > 1% indicates that a LEFT SHIFT is Present. Lymphocytes Auto (Unsp spec) [#/Vol]Ordered By: Marlin Sidhu on 07-24-2024 Lymphocytes (Bld) [#/Vol] 1.86 10*3/uL 0.83-4.51 [facility] Lymphocytes/100 WBC Auto (Un sp spec)Ordered By: Marlin Sidhu on 07-24-2024 Lymphocytes/100 WBC (Bld) 11.1 % Low 19-41 [facility] MCV (mean corpuscular volume ) determinationOrdered By: Marlin Sidhu on 07-24-2024 MCV (RBC) [Entitic vol] 80.2 fL Low 81-[address] [facility] Mean corpuscular hemoglobin (MCH) determinationOrdered By: Marlin Sidhu on 07-24-2024 MCH (RBC) [Entitic mass] 26.2 pg Low 27.0-32.0 [facility] Mean corpuscular hemoglobin concentration (MCHC) determinationOrdered By: Marlin Sidhu on 07-24-2024 MCHC (RBC) [Mass/Vol] 32.6 g/dL 32-36 [facility] Mean platelet volume determi nationOrdered By: Marlin Sidhu on 07-24-2024 Platelet mean volume (Bld) [Entitic vol] 11.2 fL 6.2-12.0 [facility] Monocyte percentageOrdered B y: Marlin Sidhu on 07-24-2024 Monocytes/100 WBC (Bld) 4.1 % 0-[address] [facility] Neutrophil percentageOrdered By: Marlin Sidhu on 07-24-2024 Neutrophils/100 WBC (Bld) 83.7 % High 47-70 [facility] Nucleated red blood cell per centageOrdered By: Marlin Sidhu on 07-24-2024 Nucleated RBC/100 WBC (Bld) [Ratio] 0 % 0-5 [facility] Phosphoruson 07-24-2024 Phosphate [Mass/Vol] 3.2 mg/dL Normal 2.7-4.5 [facility] Comment on above: Performed By: #### L 501.2300, L500.2500 #### [facility] [address] [place], [place], [id number] Platelet countOrdered By: John Sidhu on 07-24-2024 Platelets (Bld) [#/Vol] 296 10*3/uL 150-450 [facility] Potassium measurementOrdered By: Marlin Sidhu on 07-24-2024 Potassium [Moles/Vol] 3.9 mmol/L 3.5-5.1 [facility] RBC Auto (Bld) [#/Vol]Ordere d By: Marlin Sidhu on 07-24-2024 RBC (Bld) [#/Vol] 4.55 10*6/uL 4.2-5.4 [facility] Serum anion gap measurementO rdered By: Marlin Sidhu on 07-24-2024 Anion gap [Moles/Vol] 13 mmol/L 5-15 [facility] Serum glucose measurement (m ass/volume)Ordered By: Marlin Sidhu on 07-24-2024 Glucose [Mass/Vol] 113 mg/dL High 70-99 [facility] Serum or plasma calcium sarina urement (mass/volume)Ordered By: Marlin Sidhu on 07-24-2024 Calcium [Mass/Vol] 8.7 mg/dL 7.6-11.0 [facility] Serum or plasma carbon dioxi de measurement (moles/volume)Ordered By: Marlin Sidhu on 07-24-2024 CO2 [Moles/Vol] 19.1 mmol/L Low 21.0-32.0 [facility] Serum or plasma chloride juvenal surement (moles/volume)Ordered By: Marlin Sidhu on 07-24-2024 Chloride [Moles/Vol] 105 mmol/L 98-107 [facility] Serum or plasma urea nitroge n measurement (mass/volume)Ordered By: Marlin Sidhu on 07-24-2024 Urea nitrogen [Mass/Vol] 7 mg/dL 4-19 [facility] Serum phosphorus measurement Ordered By: Wilfrid Canada on 07-24-2024 Phosphorus Level 3.2 mg/dL 2.7-4.5 [facility] Sodium levelOrdered By: Eli Sidhu on 07-24-2024 Sodium [Moles/Vol] 137 mmol/L 136-145 [facility] White blood cell (WBC) count Ordered By: Marlin Sidhu on 07-24-2024 WBC (Bld) [#/Vol] 16.7 10*3/uL High 4.4-11.0 [facility] Albumin to globulin ratioOrd ered By: Wilfrid Canada on 07-23-2024 Albumin/Globulin [Mass ratio] 0.6 {ratio} Low 0.9-2.4 [facility] Bilirubin, totalOrdered By: Wilfrid Canada on 07-23-2024 Bilirubin [Mass/Vol] 0.30 mg/dL 0.20-1.00 [facility] Comment on above: For patients on eltr ombopag therapy, use of Dimension [place] TBIL is not recommended. CBC W/Diff, Automatedon -2 -2024 Absolute Lymph 3.31 X10 3/uL Normal 0.83-4.51 [facility] Comment on above: Performed By: #### L 100.0100, L500.4050, L501.2300, L501.4020 #### [facility] [address] [place], [address] Absolute Neut 8.0 X10 3/uL High 2.0-7.7 [facility] Comment on above: Performed By: #### L 100.0100, L500.4050, L501.2300, L501.4020 #### [facility] [address] [place], [address] Basophils/100 WBC (Bld) 0.4 % Normal 0-[address] [facility] Comment on above: Performed By: #### L 100.0100, L500.4050, L501.2300, L501.4020 #### [facility] [address] [place], [address] Eosinophils/100 WBC (Bld) 1.0 % Normal 0-5 [facility] Comment on above: Performed By: #### L 100.0100, L500.4050, L501.2300, L501.4020 #### [facility] [address] [place], [address] Erythrocyte distribution width (RBC) [Ratio] 14.0 % Normal 11.6-14.6 [facility] Comment on above: Performed By: #### L 100.0100, L500.4050, L501.2300, L501.4020 #### [facility] [address] [place], [address] Hematocrit (Bld) [Volume fraction] 36.2 % Low 37-47 [facility] Comment on above: Performed By: #### L 100.0100, L500.4050, L501.2300, L501.4020 #### [facility] [address] [place], [address] Hemoglobin (Bld) [Mass/Vol] 11.8 g/dL Low 12.0-15.0 [facility] Comment on above: Performed By: #### L 100.0100, L500.4050, L501.2300, L501.4020 #### [facility] [address] [place], [address] IG% 0.300 Normal 0.0-0.9 [facility] Comment on above: Result Comment: IG% - Immature Granulocytes (promyelocytes, myelocytes and metamyelocytes) > 1% indicates that a LEFT SHIFT is Present. Performed By: #### L 100.0100, L500.4050, L501.2300, L501.4020 #### [facility] [address] [place], [address] Lymphocytes/100 WBC (Bld) 27.5 % Normal 19-41 [facility] Comment on above: Performed By: #### L 100.0100, L500.4050, L501.2300, L501.4020 #### [facility] [address] [place], [address] MCH (RBC) [Entitic mass] 26.1 pg Low 27.0-32.0 [facility] Comment on above: Performed By: #### L 100.0100, L500.4050, L501.2300, L501.4020 #### [facility] [address] [place], [address] MCHC (RBC) [Mass/Vol] 32.6 g/dL Normal 32-36 [facility] Comment on above: Performed By: #### L 100.0100, L500.4050, L501.2300, L501.4020 #### [facility] [address] [place], [address] MCV (RBC) [Entitic vol] 80.1 fL Low 81-[address] [facility] Comment on above: Performed By: #### L 100.0100, L500.4050, L501.2300, L501.4020 #### [facility] [address] [place], [address] Monocytes/100 WBC (Bld) 4.4 % Normal 0-[address] [facility] Comment on above: Performed By: #### L 100.0100, L500.4050, L501.2300, L501.4020 #### [facility] [address] [place], [address] Neutrophils/100 WBC (Bld) 66.4 % Normal 47-70 [facility] Comment on above: Performed By: #### L 100.0100, L500.4050, L501.2300, L501.4020 #### [facility] [address] [place], [address] Nucleated RBC (Bld) [#/Vol] 0 10*3/uL Normal 0-5 [facility] Comment on above: Performed By: #### L 100.0100, L500.4050, L501.2300, L501.4020 #### [facility] [address] [place], [address] Platelet mean volume (Bld) [Entitic vol] 11.3 fL Normal 6.2-12.0 [facility] Comment on above: Performed By: #### L 100.0100, L500.4050, L501.2300, L501.4020 #### [facility] [address] [place], [address] Platelets (Bld) [#/Vol] 284 10*3/uL Normal 150-450 [facility] Comment on above: Performed By: #### L 100.0100, L500.4050, L501.2300, L501.4020 #### [facility] [address] [place], [address] RBC (Bld) [#/Vol] 4.52 10*6/uL Normal 4.2-5.4 [facility] Comment on above: Performed By: #### L 100.0100, L500.4050, L501.2300, L501.4020 #### [facility] [address] [place], [address] RDW SD 40.6 fl Normal 35.1-43.9 [facility] Comment on above: Performed By: #### L 100.0100, L500.4050, L501.2300, L501.4020 #### [facility] [address] [place], [address] WBC (Bld) [#/Vol] 12.1 10*3/uL High 4.4-11.0 [facility] Comment on above: Performed By: #### L 100.0100, L500.4050, L501.2300, L501.4020 #### [facility] [address] [place], [address] Comprehensive Metabolic Prof ilon 07-23-2024 Albumin [Mass/Vol] 2.6 g/dL Low 3.2-5.0 [facility] Comment on above: Order Comment: Comme nts: SPECIMEN #3'TROP' Serial specimen #1, #2 or #3: 3 Performed By: #### L 501.4021 #### [facility] [address] [place], [address] Albumin/Globulin [Mass ratio] 0.6 {ratio} Low 0.9-2.4 [facility] Comment on above: Order Comment: Comme nts: SPECIMEN #3'TROP' Serial specimen #1, #2 or #3: 3 Performed By: #### L 501.4021 #### [facility] [address] [place], [address] ALK P 83 U/L Normal 45-117 [facility] Comment on above: Order Comment: Comme nts: SPECIMEN #3'TROP' Serial specimen #1, #2 or #3: 3 Performed By: #### L 501.4021 #### [facility] [address] [place], [address] ALT [Catalytic activity/Vol] 17 U/L Normal 13-56 [facility] Comment on above: Order Comment: Comme nts: SPECIMEN #3'TROP' Serial specimen #1, #2 or #3: 3 Performed By: #### L 501.4021 #### [facility] [address] [place], [address] AST [Catalytic activity/Vol] 8 U/L Low 15-37 [facility] Comment on above: Order Comment: Comme nts: SPECIMEN #3'TROP' Serial specimen #1, #2 or #3: 3 Performed By: #### L 501.4021 #### [facility] [address] [place], [address] Bilirubin [Mass/Vol] 0.30 mg/dL Normal 0.20-1.00 [facility] Comment on above: Order Comment: Comme nts: SPECIMEN #3'TROP' Serial specimen #1, #2 or #3: 3 Result Comment: For patients on eltrombopag therapy, use of Dimension [place] TBIL is not recommended. Performed By: #### L 501.4021 #### [facility] [address] [place], [address] BUN/CRE 13.6 RATIO Normal 10-20 [facility] Comment on above: Order Comment: Comme nts: SPECIMEN #3'TROP' Serial specimen #1, #2 or #3: 3 Performed By: #### L 501.4021 #### [facility] [address] [place], [address] CA,Total 8.2 mg/dL Low 8.5-10.1 [facility] Comment on above: Order Comment: Comme nts: SPECIMEN #3'TROP' Serial specimen #1, #2 or #3: 3 Performed By: #### L 501.4021 #### [facility] [address] [place], [address] Chloride [Moles/Vol] 108 mmol/L High 98-107 [facility] Comment on above: Order Comment: Comme nts: SPECIMEN #3'TROP' Serial specimen #1, #2 or #3: 3 Performed By: #### L 501.4021 #### [facility] [address] [place], [address] CO2 [Moles/Vol] 24.0 mmol/L Normal 21.0-32.0 [facility] Comment on above: Order Comment: Comme nts: SPECIMEN #3'TROP' Serial specimen #1, #2 or #3: 3 Performed By: #### L 501.4021 #### [facility] [address] [place], [address] Creatinine [Mass/Vol] 0.52 mg/dL Low 0.55-1.02 [facility] Comment on above: Order Comment: Comme nts: SPECIMEN #3'TROP' Serial specimen #1, #2 or #3: 3 Result Comment: The validity of the calculated GFR GFRAA in patients over 70 years has not been determined. Clinical correlation is essential. Performed By: #### L 501.4021 #### [facility] [address] [place], [address] ECRCL 261.29 ml/min Normal [facility] Comment on above: Order Comment: Comme nts: SPECIMEN #3'TROP' Serial specimen #1, #2 or #3: 3 Performed By: #### L 501.4021 #### [facility] [address] [place], [address] EST GFR - AA 182 mL/min Normal >60 [facility] Comment on above: Order Comment: Comme nts: SPECIMEN #3'TROP' Serial specimen #1, #2 or #3: 3 Result Comment: Afri can [place] GFR Calc Performed By: #### L 501.4021 #### [facility] [address] [place], [address] GAP 7 Normal 5-15 [facility] Comment on above: Order Comment: Comme nts: SPECIMEN #3'TROP' Serial specimen #1, #2 or #3: 3 Performed By: #### L 501.4021 #### [facility] [address] [place], [address] GFR/1.73 sq M.predicted among non-blacks MDRD (S/P/Bld) [Vol rate/Area] 150 mL/min/{1.73_m2} Normal >60 [facility] Comment on above: Order Comment: Comme nts: SPECIMEN #3'TROP' Serial specimen #1, #2 or #3: 3 Result Comment: Non- GFR Calc Performed By: #### L 501.4021 #### [facility] [address] [place], [address] Globulin (S) [Mass/Vol] 4.1 g/dL Normal 2.2-4.2 [facility] Comment on above: Order Comment: Comme nts: SPECIMEN #3'TROP' Serial specimen #1, #2 or #3: 3 Performed By: #### L 501.4021 #### [facility] [address] [place], [address] Glucose [Mass/Vol] 102 mg/dL Normal 74-106 [facility] Comment on above: Order Comment: Comme nts: SPECIMEN #3'TROP' Serial specimen #1, #2 or #3: 3 Result Comment: Fast ing Glucose result from 100 to 125 mg/dL suggests IMPAIRED HOMEOSTASIS per A.D.A. criteria. Performed By: #### L 501.4021 #### [facility] [address] [place], [address] Potassium [Moles/Vol] 3.6 mmol/L Normal 3.5-5.1 [facility] Comment on above: Order Comment: Comme nts: SPECIMEN #3'TROP' Serial specimen #1, #2 or #3: 3 Performed By: #### L 501.4021 #### [facility] [address] [place], [address] Sodium [Moles/Vol] 138 mmol/L Normal 136-145 [facility] Comment on above: Order Comment: Comme nts: SPECIMEN #3'TROP' Serial specimen #1, #2 or #3: 3 Performed By: #### L 501.4021 #### [facility] [address] [place], [address] T PROT 6.7 g/dL Normal 6.4-8.2 [facility] Comment on above: Order Comment: Comme nts: SPECIMEN #3'TROP' Serial specimen #1, #2 or #3: 3 Performed By: #### L 501.4021 #### [facility] [address] [place], [address] Urea nitrogen [Mass/Vol] 7 mg/dL Normal 7-18 [facility] Comment on above: Order Comment: Comme nts: SPECIMEN #3'TROP' Serial specimen #1, #2 or #3: 3 Performed By: #### L 501.4021 #### [facility] [address] [place], [address] Consultation - Cardiologyon 07-23-2024 Consultation - Cardiology [facility] Medical Records Department [address] [place] [address] Consultation - Cardiology 07/23/24 0734 MR#: [id number] Acct: [id number] Name: YEMI JC Rep #: [id number] : 1995 29 From: Danial Hernández MD PCP: JOHN Ramirez Status:ADM JIMMIE Location: [place] [address] Assessment Plan Assessment/Plan (1) Atrial fibrillation with rapid ventricular response: PLAN: This appears to be new onset atrial fibrillation most probably related to her stimulant drug for her ADHD. She has noted palpitations in the past that was shortly of taking this medication. However these persisted since 07/20/2019 5 in the evening. The patient had a negative urine drug screen, negative CTA, and does not appear to be actively infected. I recommend the patient avoid stimulant drug use for future for treatment of her ADHD. We will attempt to control her rate by increasing her beta-isabel and titrating her diltiazem. We will switch her from Lovenox to oral Eliquis as her [id number] or of 2 would relegate her to oral anticoagulation therapy. Given the fact has been over 48 hours I am reluctant to pursue direct- current cardioversion without appropriate anticoagulation for 3 to 4 weeks. Will continue to manage heart rate titrate her medications and plan for her to be discharged to home unless she spontaneously converts to sinus rhythm. It will be 2 more days before the stimulant drug will be completely out of her system that is possible she will cardiovert on her own by added beta- isabel effect. I changed the orders to put her on Eliquis 5 mg twice daily we need to monitor her hemoglobin as it was 11 on admission. I also increase her metoprolol to tartrate to 50 mg twice daily if this does not control her rate better in the next 12 hours would increase it to 50 mg every 6 hours. The patient should be reevaluated for sleep apnea in the ambulatory setting after discharge. (2) Essential hypertension: PLAN: Patient's blood pressure has been controlled in her home environment on losartan. However given the need for additional beta-isabel and rate modulating medications I would recommend we hold the losartan and titrate her beta-isabel therapy. If needed we can reinstitute losartan for blood pressure control prior to discharge. PLAN: Plan 1. Will continue with rate control and switch to Eliquis for oral anticoagulation therapy given her [id number] score of 2. 2. I will continue to follow along with you and monitor her rate response. HPI Consult Data Date of Consult: 07/23/24 HPI Narrative Reason for Consultation: New onset atrial fibrillation with rapid ventricular response HPI Narrative: YEMI JC, is a 29 F who presents with a history of palpitations that started Monday evening 07/20/2024. The patient has been in atrial fibrillation for over 48 hours as of this time. The patient presented to emergency department on 07/22/2024. She had a heart rate of 164 with atrial fibrillation and occasional PVCs on her EKG. The patient was treated with IV metoprolol and IV Cardizem with less than optimal rate control. She was started on Lovenox and admitted to the progressive coronary care unit. The patient's been continued on metoprolol 25 mg twice daily. Her heart rate has been running in the 120-140 range. The patient is well aware when she is in atrial fibrillation by her palpitations. She denies any syncope or near syncope. She denies any chest pain. Patient has no prior history of atrial fibrillation. She has been on ADHD drug that is a stimulant. She has had episodes where she felt these palpitations that last seconds to minutes and resolve spontaneously in the past but nothing has been persistent like this. The patient had a CTA done in the emergency department which showed no evidence of a PE or any type of major abnormalities. Troponins were negative. The patient is morbidly obese she has been evaluated for obstructive sleep apnea and told that she needed a tonsillectomy but did not necessarily test positive for sleep apnea. This was 5 years ago. The urine drug screen was negative in the ED. The patient denies any illicit drug use. The patient has no first-degree family relatives with atrial fibrillation or cardiovascular disease her maternal grandmother did have atrial fibs late in life she believes. Patient does have a history of hypertension that has been treated with ARB therapy. She also has a history of bronchitis and influenza but not recently by her report. The patient's [id number] score is 2 based on her age hypertension and female gender. [facility] Medical History Acute bronchitis, unspecified Influenza A Home Medications ???Medication ???Instructions ???Recorded ???Last Taken ???Type buspirone 30 mg tabl (more content not included)... Normal [facility] L501.4020on 07-23-2024 TROPONIN-I HS 5 pg/mL Normal 3.0-54.0 [facility] Comment on above: Order Comment: Comme nts: SPECIMEN #3'TROP' Serial specimen #1, #2 or #3: 3 Result Comment: Plea se Note: New Test Units and Gender Specific Reference Ranges. For more information see Policy Stat Procedure [place] High Sensitivity Troponin (TNIH) and attachments. Performed By: #### L 501.4021 #### [facility] [address] [place], [place], [address] TROPONIN-I HS 4 pg/mL Normal 3.0-54.0 [facility] Comment on above: Order Comment: Comme nts: SPECIMEN #2'TROP' Serial specimen #1, #2 or #3: 2 Result Comment: Plea se Note: New Test Units and Gender Specific Reference Ranges. For more information see Policy Stat Procedure [place] High Sensitivity Troponin (TNIH) and attachments. Performed By: #### L 501.4021 #### [facility] [address] [place], [place], [id number] TROPONIN-I HS 5 pg/mL Normal 3.0-54.0 [facility] Comment on above: Order Comment: 'TROP ' Serial specimen #1, #2 or #3: 1 Result Comment: Plea se Note: New Test Units and Gender Specific Reference Ranges. For more information see Policy Stat Procedure [place] High Sensitivity Troponin (TNIH) and attachments. Performed By: #### L 501.4021 #### [facility] [address] [place], [address] Laboratory - Chemistry and C hemistry - challengeOrdered By: Wilfrid Canada on 07-23-2024 AST [Catalytic activity/Vol] 8 U/L Low 15-37 [facility] Phosphoruson 07-23-2024 Phosphate [Mass/Vol] 3.1 mg/dL Normal 2.5-4.9 [facility] Comment on above: Order Comment: Comme nts: SPECIMEN #3'TROP' Serial specimen #1, #2 or #3: 3 Performed By: #### L 501.4021 #### [facility] [address] [facility] [address] Serum globulin measurementOr dered By: Wilfrid Canada on 07-23-2024 Globulin (S) [Mass/Vol] 4.1 g/dL 2.2-4.2 [facility] Serum or plasma alanine rodriguez otransferase (ALT) measurementOrdered By: Wilfrid Canada on 07-23-2024 ALT [Catalytic activity/Vol] 17 U/L 13-56 [facility] Serum or plasma albumin sarina urement (mass/volume)Ordered By: Wilfrid Canada on 07-23-2024 Albumin [Mass/Vol] 2.6 g/dL Low 3.2-5.0 [facility] Serum or plasma alkaline mayco sphatase measurementOrdered By: Wilfrid Canada on 07-23-2024 ALP [Catalytic activity/Vol] 83 U/L 45-117 [facility] Total proteinOrdered By: Marlo Canada on 07-23-2024 Protein [Mass/Vol] 6.7 g/dL 6.4-8.2 [facility] Troponin IOrdered By: Wilfird Canada on 07-23-2024 Troponin I High Sensitivity 5 pg/mL 3.0-54.0 [facility] Comment on above: Please Note: [place] t Units and Gender Specific Reference Ranges. For more information see Policy Stat Procedure [place] High Sensitivity Troponin (TNIH) and attachments. 12 Lead EKGon 07-22-2024 12 Lead EKG [facility] Cardiovascular Services [address] [place] [address] 12 Lead EKG 07/22/24 1731 MR#: [id number] Acct: [id number] Name: YEMI JC Rep #: [id number] : 1995 29 From: Danial Hernández MD Attending Dr: Dr. Nirmala Arenas DO Status: ADM I N Ordering Dr: Eric Figueroa DO Date: 07/22/24 Location: [facility] Sex: F C Admitted: 07/23/24 Test Reason : PALPS Blood Pressure : */* mmHG Vent. Rate : 164 BPM Atrial Rate : * BPM P-R Int : * ms QRS Dur : 74 ms QT Int : 266 ms P-R-T Axes : * 37 17 degrees QTcB Int : 439 ms Critical Test Result: High HR Atrial fibrillation with rapid ventricular response with premature ventricular or aberrantly conducted complexes Nonspecific ST abnormality Abnormal ECG Confirmed by Danial Hernández ([id number]), copy editor JUAN PABLO CARLSON ([id number]) on 07/24/2024 8:03:56 AM Referred By: Confirmed By: Danial Hernández 07/24/24 08 Date Danial Hernández MD CC: Dr. Nirmala Arenas, DO; Dr. Eric Figueroa, DO; JOHN Ramirez Signed Normal [facility] Basic Metabolic Profile (BMP )on 07-22-2024 BUN/CRE 15.3 RATIO Normal 10-20 [facility] Comment on above: Performed By: #### L 501.5425, L100.0100, L500.2500 #### [facility] [address] [place], [address] CA,Total 9.3 mg/dL Normal 8.5-10.1 [facility] Comment on above: Performed By: #### L 501.5425, L100.0100, L500.2500 #### [facility] [address] [place], [address] Chloride [Moles/Vol] 106 mmol/L Normal 98-107 [facility] Comment on above: Performed By: #### L 501.5425, L100.0100, L500.2500 #### [facility] [address] [place], [address] CO2 [Moles/Vol] 23.0 mmol/L Normal 21.0-32.0 [facility] Comment on above: Performed By: #### L 501.5425, L100.0100, L500.2500 #### [facility] [address] [place], [address] Creatinine [Mass/Vol] 0.72 mg/dL Normal 0.55-1.02 [facility] Comment on above: Result Comment: The validity of the calculated GFR GFRAA in patients over 70 years has not been determined. Clinical correlation is essential. Performed By: #### L 501.5425, L100.0100, L500.2500 #### [facility] [address] [place], [address] ECRCL 188.93 ml/min Normal [facility] Comment on above: Performed By: #### L 501.5425, L100.0100, L500.2500 #### [facility] [address] [place], [address] EST GFR - AA 124 mL/min Normal >60 [facility] Comment on above: Result Comment: Afri can [place] GFR Calc Performed By: #### L 501.5425, L100.0100, L500.2500 #### [facility] [address] [place], [address] GAP 8 Normal 5-15 [facility] Comment on above: Performed By: #### L 501.5425, L100.0100, L500.2500 #### [facility] [address] [place], [address] GFR/1.73 sq M.predicted among non-blacks MDRD (S/P/Bld) [Vol rate/Area] 102 mL/min/{1.73_m2} Normal >60 [facility] Comment on above: Result Comment: Non- GFR Calc Performed By: #### L 501.5425, L100.0100, L500.2500 #### [facility] [address] [place], [address] Glucose [Mass/Vol] 89 mg/dL Normal 74-106 [facility] Comment on above: Performed By: #### L 501.5425, L100.0100, L500.2500 #### [facility] [address] [place], [address] Potassium [Moles/Vol] 3.9 mmol/L Normal 3.5-5.1 [facility] Comment on above: Performed By: #### L 501.5425, L100.0100, L500.2500 #### [facility] [address] [place], [address] Sodium [Moles/Vol] 137 mmol/L Normal 136-145 [facility] Comment on above: Performed By: #### L 501.5425, L100.0100, L500.2500 #### [facility] [address] [place], [address] Urea nitrogen [Mass/Vol] 11 mg/dL Normal 7-18 [facility] Comment on above: Performed By: #### L 501.5425, L100.0100, L500.2500 #### [facility] [address] [place], [address] Beta HCG ( test) Ql Ordered By: Eric Figueroa on 07-22-2024 Serum Test, Qualitative Negative [facility] CBC W/Diff, Automatedon 06-30 Absolute Lymph 4.31 X10 3/uL Normal 0.83-4.51 [facility] Comment on above: Performed By: #### L 501.5425, L100.0100, L500.2500 #### [facility] [address] [place], [address] Absolute Neut 6.7 X10 3/uL Normal 2.0-7.7 [facility] Comment on above: Performed By: #### L 501.5425, L100.0100, L500.2500 #### [facility] [address] [place], [address] Basophils/100 WBC (Bld) 0.6 % Normal 0-[address] [facility] Comment on above: Performed By: #### L 501.5425, L100.0100, L500.2500 #### [facility] [address] [place], [address] Eosinophils/100 WBC (Bld) 1.9 % Normal 0-5 [facility] Comment on above: Performed By: #### L 501.5425, L100.0100, L500.2500 #### [facility] [address] [place], [address] Erythrocyte distribution width (RBC) [Ratio] 13.9 % Normal 11.6-14.6 [facility] Comment on above: Performed By: #### L 501.5425, L100.0100, L500.2500 #### [facility] [address] [place], [address] Hematocrit (Bld) [Volume fraction] 41.1 % Normal 37-47 [facility] Comment on above: Performed By: #### L 501.5425, L100.0100, L500.2500 #### [facility] [address] [place], [address] Hemoglobin (Bld) [Mass/Vol] 13.5 g/dL Normal 12.0-15.0 [facility] Comment on above: Performed By: #### L 501.5425, L100.0100, L500.2500 #### [facility] [address] [place], [address] IG% 0.300 Normal 0.0-0.9 [facility] Comment on above: Result Comment: IG% - Immature Granulocytes (promyelocytes, myelocytes and metamyelocytes) > 1% indicates that a LEFT SHIFT is Present. Performed By: #### L 501.5425, L100.0100, L500.2500 #### [facility] [address] [place], [address] Lymphocytes/100 WBC (Bld) 35.9 % Normal 19-41 [facility] Comment on above: Performed By: #### L 501.5425, L100.0100, L500.2500 #### [facility] [address] [place], [address] MCH (RBC) [Entitic mass] 26.3 pg Low 27.0-32.0 [facility] Comment on above: Performed By: #### L 501.5425, L100.0100, L500.2500 #### [facility] [address] [place], [address] MCHC (RBC) [Mass/Vol] 32.8 g/dL Normal 32-36 [facility] Comment on above: Performed By: #### L 501.5425, L100.0100, L500.2500 #### [facility] [address] [place], [address] MCV (RBC) [Entitic vol] 80.1 fL Low 81-99 [facility] Comment on above: Performed By: #### L 501.5425, L100.0100, L500.2500 #### [facility] [address] [place], [address] Monocytes/100 WBC (Bld) 5.6 % Normal 0-10 [facility] Comment on above: Performed By: #### L 501.5425, L100.0100, L500.2500 #### [facility] [address] [place], [address] Neutrophils/100 WBC (Bld) 55.7 % Normal 47-70 [facility] Comment on above: Performed By: #### L 501.5425, L100.0100, L500.2500 #### [facility] [address] [place], [address] Nucleated RBC (Bld) [#/Vol] 0 10*3/uL Normal 0-5 [facility] Comment on above: Performed By: #### L 501.5425, L100.0100, L500.2500 #### [facility] [address] [place], [address] Platelet mean volume (Bld) [Entitic vol] 11.5 fL Normal 6.2-12.0 [facility] Comment on above: Performed By: #### L 501.5425, L100.0100, L500.2500 #### [facility] [address] [place], [address] Platelets (Bld) [#/Vol] 382 10*3/uL Normal 150-450 [facility] Comment on above: Performed By: #### L 501.5425, L100.0100, L500.2500 #### [facility] [address] [place], [address] RBC (Bld) [#/Vol] 5.13 10*6/uL Normal 4.2-5.4 [facility] Comment on above: Performed By: #### L 501.5425, L100.0100, L500.2500 #### [facility] [address] [place], [address] RDW SD 40.4 fl Normal 35.1-43.9 [facility] Comment on above: Performed By: #### L 501.5425, L100.0100, L500.2500 #### [facility] [address] [place], [address] WBC (Bld) [#/Vol] 12.0 10*3/uL High 4.4-11.0 [facility] Comment on above: Performed By: #### L 501.5425, L100.0100, L500.2500 #### [facility] [address] [place], [address] CTA Chest W/WO Contraston CTA Chest W/WO Contrast [facility] Imaging Services [address] [place] [address] CTA Chest W/WO Contrast MR#: [id number] Acct: [id number] Name: YEMI JC Rep #: [id number] : 1995 F 29 From: Deacon Sandoval i, DO PCP: JOHN Ramirez Status: REG ER Study: CTA Chest W/WO Contrast Date of Exam: 07/22/24 Exam# [id number] Ordering Dr: Eric Figueroa DO PROCEDURE: CT angiogram of the chest with IV contrast. REASON FOR EXAM: Atrial fibrillation, shortness of breath. TECHNIQUE: After the intravenous administration of 100 cc Isovue 370 IV contrast, contiguous axial CT images were obtained through the chest. Sagittal and coronal reformats were created. Sagittal and coronal reformats were created. Maximum intensity projection images were created and reviewed. COMPARISON: Chest radiograph from the same day. No prior chest CT. FINDINGS: Mild elevation right hemidiaphragm. There are mild/moderate degenerative changes in the mid to lower thoracic spine. Bones of the thorax otherwise intact. No displaced rib fractures. Included upper abdominal structures show no specific abnormality. Heart is not enlarged. No sizable pericardial effusion. Thoracic aorta normal in caliber without gross evidence for dissection. Origins of the arch vessels appear patent. The included thyroid and breast tissue are unremarkable. No thoracic adenopathy. No pulmonary arterial filling defect. Central airway is clear. No focal airspace consolidation, pneumothorax, or pleural effusion. Evaluation of the lungs is limited due to respiratory artifact. No dominant pulmonary parenchymal nodule. CT/CTA Chest W/WO Contrast IMPRESSION: No acute findings in the chest. No pulmonary embolism or evidence of thoracic aortic dissection. Lungs are grossly clear, although evaluation is limited due to respiratory motion. No thoracic adenopathy. One or more dose reduction techniques were used (e.g., Automated exposure control, adjustment of the mA and/or kV according to patient size, use of iterative reconstruction technique). Reading Location: [facility] CC: Dr. Eric Figueroa DO; JOHN Ramirez Ncqa Specialist: Signed Normal [facility] Chest 1 View (Portable)on Chest 1 View (Portable) [facility] Imaging Services [address] [place] [address] Chest 1 View (Portable) MR#: [id number] Acct: [id number] Name: YEMI JC Rep #: [id number] : 1995 F 29 From: Deacon Sandoval i, DO PCP: JOHN Ramirez Status: REG ER Study: Chest 1 View (Portable) Date of Exam: 07/22/24 Exam# [id number] Ordering Dr: Eric Figueroa DO PROCEDURE: Portable upright chest radiograph, one view REASON FOR EXAM: Chest pain TECHNIQUE: Portable upright chest radiograph was obtained. COMPARISON: None. FINDINGS: The cardiomediastinal silhouette is within normal limits. Monitoring leads overlie the chest. Bones are intact. Mild elevation right hemidiaphragm. No focal airspace consolidation, pneumothorax, or pleural effusion. The left retrocardiac region is not well evaluated. RAD/Chest 1 View (Portable) IMPRESSION: No definite acute cardiopulmonary process. If there is persistent pain or clinical concern, short- term follow-up chest CT evaluation may be considered. Reading Location: [facility] CC: Dr. Eric Figueroa DO; JOHN Ramirez Ncqa Specialist: Signed Normal [facility] Direct serum free thyroxine (FT4) measurementOrdered By: Eric Figueroa on 07-22-2024 Free T4 [Mass/Vol] 0.97 ng/dL 0.76-1.46 [facility] Echo Complete W/ Contraston 07-22-2024 Echo Complete W/ Contrast [facility] Cardiovascular Services [address] [place] [address] Echo Complete W/ Contrast 07/23/24 0819 MR#: [id number] Acct: [id number] Name: YEMI JC Rep #: [id number] : 1995 29 From: Joselin Craig MD Attending Dr: Dr. Marlin Sidhu MD Status: ADM JIMMIE Ordering Dr: Wilfrid Hernandez DO Date: 07/22/24 Location: [facility] Sex: F C Admitted: 07/22/24 Reason For Study Reason For Study: Afib, Aflutter Procedure This was a 2D Doppler, Color Flow transthoracic echocardiogram. Contrast injection was performed. Exam performed portable in patient room. Left Ventricle Normal LV size. The estimated ejection fraction is 65 %. No evidence for diastolic dysfunction. No regional wall motion abnormalities noted. Right Ventricle Normal RV size. Normal systolic function. Atria The left and right atria are normal. No doppler evidence for ASD. Mitral Valve There is no mitral valve stenosis. Trivial mitral valve insufficiency. Tricuspid Valve There is no tricuspid stenosis. Trivial tricuspid valve insufficiency. Unable to estimate RV systolic pressure due to insufficient tricuspid regurgitant envelope. Aortic Valve Trisinus/trileaflet aortic valve. There is no aortic stenosis. No aortic valve insufficiency. Pulmonic Valve There is no pulmonic valvular stenosis. No pulmonic valve insufficiency. Great Vessels Normal sized aortic root. Pericardium/Pleural No pericardial effusion. Medication Diluted definity 2ml given slow IV push to enhance endocardial definition. MMode/2D Measurements Calculations LVIDd: 5.2 cm IVSd: 1.0 cm Ao root diam: 3.0 cm LVIDs: 3.2 cm LVPWd: 0.98 cm RVDd: 3.3 cm FS: 38.0 % _ LAV(MOD-bp): 45.4 ml LVAd ap4: 27.1 cm2 SV(MOD-sp4): 55.0 ml LAV(MOD-bp) Indexed: 17.5 ml/m2 LVLd ap4: 7.9 cm SI(MOD-sp4): 21.3 ml/m2 LAV(MOD-sp2): 54.1 ml EDV(MOD-sp4): 75.9 ml LAV(MOD-sp4): 34.8 ml EDV(sp4-el): 78.9 ml LVAs ap4: 12.8 cm2 LVLs ap4: 6.6 cm ESV(MOD-sp4): 20.9 ml ESV(sp4-el): 21.0 ml EF(MOD-sp4): 72.5 % EF(sp4-el): 73.3 % _ SV(sp4-el): 57.8 ml LA A4 area: 15.4 cm2 LA dimension(2D): 4.6 cm _ RA A4 area: 12.0 cm2 TAPSE: 2.0 cm Doppler Measurements Calculations MV E max mehran: 115.4 cm/sec Lat Peak E' Mehran: 15.7 cm/sec Med Peak E' Mehran: 14.2 cm/sec E/E' lat: 7.4 E/E' med: 8.2 _ Ao V2 max: 153.7 cm/sec LV V1 max: 135.9 cm/sec PA V2 max: 94.2 cm/sec Ao max P.6 mmHg LV V1 max P.4 mmHg Ao V2 mean: 102.2 cm/sec Ao mean P.9 mmHg Ao V2 VTI: 26.1 cm _ TR max mehran: 228.8 cm/sec TR max P.9 mmHg ECHO/Echo Complete W/ Contrast Interpretation Summary The estimated ejection fraction is 65 %. No evidence for diastolic dysfunction. Trivial mitral valve insufficiency. Ordering Physician: Wilfrid Hernandez Referring Physician: Ashlyn Gates Performed By: Ashlyn Vizcaino RDCS, RVT 07/23/24 1348 Date Joselin Craig MD CC: Dr. Wilfrid Hernandez DO; Dr. Marlin Sidhu MD; JOHN Ramirez Date Dictated: 07/23/24818 Date Transcribed: 07/23/24 134 Ncqa Specialist: Signed Normal [facility] Emergency Department Summary on 07-22-2024 Emergency Department Summary [facility] Medical Records Department [address] [place] [address] Emergency Department Summary 07/22/24 MR#: [id number] Acct: [id number] Name: YEMI JC Rep #: [id number] : 1995 29 From: Eric Figueroa DO PCP: JOHN Ramirez Status:REG ER Location: ED ADDENDUM by Dr. Eric Figueroa DO on 07/22/24 at 2055 Critical care time 57 minutes 07/22/242055 Cosigner Signature (if applicable): cc: JOHN Ramirez * Signed HPI History of Present Illness Chief Complaint: Palpitations Narrative Narrative: Patient is a 21-year-old female with past medical history of hypertension who presented to the emergency department with a chief complaint of palpitations and shortness of breath. Patient states that over the weekend she had the sensation that her heart was racing in her chest and states that it has been persistent and feels that has gotten worse prompting her to come here for the valuation management. Patient states that she does have some shortness of breath with exertion. Patient states that she is on control denies any other hormonal replacement therapies. Patient states that she did travel to a concert over the weekend to [place] and then recently again to [place]. Patient denies any history of blood clots. [facility] Medical History Acute bronchitis, unspecified Influenza A Home Medications ???Medication ???Instructions ???Recorded ???Last Taken ???Type buspirone 30 mg tablet 30 mg PO BID 07/22/24 Unknown Hist ory clotrimazole-betamethaso ne 1 1 applic topical BID PRN PRN rash 07/22/24 Unknown History %-0.05 % topical cream cyanocobalamin (vitamin B-12) 1,000 mcg PO DAILY 07/22/24 Unknow n History 1,000 mcg tablet lisdexamfetamine 30 mg capsule 30 mg PO DAILY 07/22/24 Unknown Hi story losartan 50 mg tablet 50 mg PO BID 07/22/24 Unknown Hist ory omeprazole 20 mg capsule,delayed 20 mg PO BID 07/22/24 Unknown Hist ory release vilazodone 20 mg tablet 20 mg PO DAILY 07/22/24 Unknown Hi story Allergy/AdvReac Type Severity Reaction Status Date / Time No Known Allergies Allergy Verified 07/22/24 17:20 Surgical History History of appendectomy Social History household members: significant other housing: house Smoking Status: Never smoker ROS ROS ED ROS Narrative Constitutional: Denies fevers, chills, lightness, dizziness Eyes: Denies change in vision double vision blurry vision Cardiovascular: Denies chest pain complains of palpitations as noted above Respiratory: Complains of shortness of breath denies coughing Abdomen: Denies abdominal pain nausea vomit diarrhea : Denies any urinary symptoms Neurological: Denies any numbness, weakness, tingling Musculoskeletal: Denies back pain Skin: Denies rashes or lesions EXAM Physical Exam Narrative Exam Narrative: General: Patient lying in bed rest comfortably did not appear to be in acute distress Head: Atraumatic, normocephalic Eyes: PERRL bilaterally, EOMI bilaterally, no conjunctival injection noted Neck: Soft, supple, trachea midline Cardiovascular: Patient had a irregular irregular rhythm and tachycardia noted no murmurs gallops rubs noted Respiratory: Clear to auscultation bilaterally Abdomen: No tenderness palpation Extremities: +5/5 strength noted in the bilateral upper and lower extremities no pedal edema on exam Neurological: Patient following commands knew that she was at [facility] year is 2024 Skin: Warm, dry, intact no rashes or lesions noted Const Vital Signs: 07/22/24 17:20 07/22/24 17:39 07/22/24 17:55 Temperature 98.1 F Temperature Source Oral Pulse Rate 66 156 H Respiratory Rate 16 Blood Pressure 175/158 H 193/167 H Blood Pressure Mean 163 175 Blood Pressure Source Blood Pressure Position Blood Pressure Location Pulse Ox 99 98 98 Oxygen Delivery Method Room Air Room Air 07/22/24 17:58 07/22/24 18:19 07/22/24 18:40 Temperature Temperature Source Pulse Rate 147 H 156 H 151 H Respiratory Rate 16 Blood Pressure 179/169 H 128/81 H 105/76 Blood Pressure Mean 172 96 85 Blood Pressure Source Blood Pressure Position Blood Pressure Location Pulse Ox 98 Oxygen Delivery Method 07/22/24 18:49 07/22/24 19:00 07/22/24 19:48 Temperature Temperature Source Pulse Rate 147 H 147 H 141 H Respiratory Rate Blood Pressure 118/78 131/98 H 120/93 H Blood Pressure Mean 91 109 102 Blood Pressure Source Blood Pressure Position Blood Pressure Location Pulse Ox 98 98 Oxygen Delivery Metho (more content not included)... Normal [facility] Free T3on 07-22-2024 Free T3 [Mass/Vol] 3.1 pg/mL Normal 2.18-3.98 [facility] Comment on above: Performed By: #### L 501.4021 #### [facility] [address] [place], [address] Free [id number] By: Eric Fan nubia on 07-22-2024 Free Triiodothyronine (T3) pg/dL 3.1 pg/mL 2.18-3.98 [facility] H AND P Exam - [facility]iston 07-22-2024 H&P Exam - Hospitalist [facility] Medical Records Department [address] [place] [address] H P Exam - Hospitalist 07/22/242027 MR#: [id number] Acct: [id number] Name: YEMI JC Rep #: [id number] : 1995 29 From: Wilfrid Hernandez DO PCP: JOHN Ramirez Status:ADM JIMMIE Location: [place] [address] HPI - General General Date of Admission: 07/22/24 Date of Service: 07/22/24 Chief Complaint: Palpitations, Heart Racing and SOB. HPI Narrative YEMI JC, is a 29 F with a past medical history of essential hypertension; on losartan, morbid obesity; with BMI of 64 this admission, history of depression; on vilazodone and buspirone, history of ADHD; on lisdexamfetamine, history of acute bronchitis, history of influenza A and GERD; on omeprazole who presents to [facility] ER complaining of palpitations, heart racing and SOB. Ms. Jc reports her symptoms began approximately two days prior to admission with the abrupt-onset of a sensation of heart racing and palpitations when she was getting into her car. She also admits to dyspnea on exertion that is new along with heightened anxiety about her ongoing arrhythmia as she does not know why this is happening to her. She admits to travelling to a concert over the weekend to [place] followed by another concert in [place], [place] but she denies being on OCP's or HRT. She states she stopped taking her lisdexamfetamine two days ago and she affirms that she did not take any other stimulants, excessive caffeine ingestion or illicit drugs. She denies recent illness, history of BEST or personal history of atrial fibrillation. She denies a family history of heart problems except her maternal grandmother. In the ER she was noted to have EKG evidence of New-onset Atrial Fibrillation; with RVR of 156 bpm that was resistant to treatment with IV metoprolol and IV diltiazem drip with a negative UDS, negative urine test and normal TSH with Leukocytosis of 12K present on admission likely due to Acute Phase Reactant with patient having no signs of infection at this time and she was then admitted to the PCU for ongoing care for a stay that is expected to extend beyond 2 midnights. [facility] Medical History Acute bronchitis, unspecified Influenza A Home Medications ???Medication ???Instructions ???Recorded ???Last Taken ???Type buspirone 30 mg tablet 30 mg PO BID 07/22/24 07/21/24 23: 24 History clotrimazole-betamethaso ne 1 1 applic topical BID PRN PRN rash 07/22/24 Unknown History %-0.05 % topical cream cyanocobalamin (vitamin B-12) 1,000 mcg PO DAILY 07/22/24 Unknow n History 1,000 mcg tablet lisdexamfetamine 30 mg capsule 30 mg PO DAILY 07/22/24 Unknown Hi story losartan 50 mg tablet 50 mg PO BID 07/22/24 Unknown Hist ory omeprazole 20 mg capsule,delayed 20 mg PO BID 07/22/24 Unknown Hist ory release vilazodone 20 mg tablet 20 mg PO DAILY 07/22/24 Unknown Hi story Allergy/AdvReac Type Severity Reaction Status Date / Time No Known Allergies Allergy Verified 07/22/24 17:20 Surgical History History of appendectomy Social History household members: significant other housing: house Smoking Status: Never smoker ROS ROS Narrative Review of Systems: Constitutional: Patient denies fevers or chills. Eyes: Patient denies changes in vision or discharge from eyes. ENT: Patient admits to recent mild sinus congestion but she denies runny nose, sore throat or ear pain. Resp: Patient admits to dyspnea on exertion. CV: Patient admits to heart racing and palpitations as noted in HPI. She denies chest pain. GI: Patient denies abdominal pain, nausea, vomiting, diarrhea or constipation. : Patient denies dysuria or hematuria. MSK: Patient denies arthralgias or myalgias. Skin: Patient denies rash, abscess, wounds or jaundice. Psych: Patient admits to heightened anxiety about her arrhythmia but she denies SI or HI. Neuro: Patient denies headache, paresthesias or focal neurologic deficits. Allergy: Patient denies lip swelling, tongue swelling or urticaria. Hematology: Patient denies easy bleeding or easy bruisability. Endocrinology: Patient denies polyuria, polydipsia or polyphagia. 14 point ROS otherwise negative except for positives noted above in HPI. Vital Signs Vital Signs Vital Signs: 07/22/24 17:20 07/22/24 17:39 07/22/24 17:55 Temperature 98.1 F Temperature Source Oral Pulse Rate 66 156 H Respiratory Rate 16 Blood Pressure 175/158 H 193/167 H Blood Pressure Mean 163 175 Blood Pressure Source Blood Pressure Position Blood Pressure Location Pulse Ox 99 98 98 Oxyg (more content not included)... Normal [facility] L501.4020on 07-22-2024 TROPONIN-I HS 5 pg/mL Normal 3.0-54.0 [facility] Comment on above: Result Comment: Plea se Note: New Test Units and Gender Specific Reference Ranges. For more information see Policy Stat Procedure [place] High Sensitivity Troponin (TNIH) and attachments. Performed By: #### L 503.7505, L500.2500 #### [facility] [address] [place], [address] L501.5425on 07-22-2024 TROPONIN-I HS 7 pg/mL Normal 3.0-54.0 [facility] Comment on above: Order Comment: 1 Y Result Comment: Anthony acosta Note: New Test Units and Gender Specific Reference Ranges. For more information see Policy Stat Procedure [place] High Sensitivity Troponin (TNIH) and attachments. Performed By: #### L 501.5425, L100.0100, L500.2500 #### [facility] [address] [place], [place], [address] Magnesiumon 07-22-2024 Magnesium [Mass/Vol] 1.9 mg/dL Normal 1.6-2.6 [facility] Comment on above: Performed By: #### L 501.4021 #### [facility] [address] [place], [place], [address] Magnesium measurementOrdered By: Wilfrid Canada on 07-22-2024 Magnesium [Mass/Vol] 1.9 mg/dL 1.6-2.6 [facility] Methadone, urineOrdered By: Eric Figueroa on 07-22-2024 Urine Methadone Screen Negative < 300 ng/mL [facility] No Panel InformationOrdered By: Eric Figueroa on 07-22-2024 Urine Drug Screen Comment [facility] Comment on above: CONFIRMATORY TESTING FOR ALL POSITIVE URINE DRUG SCREENRESULTS WILL ONLY BE SENT OUT UPON PHYSICIAN ORDER. VISTA Urine Drug Screen methods provide only preliminaryanalytical test results. A more specific alternate chemicalmethod must be used in order to obtain a confirmedanalytical result. Gas chromatography/mass spectrometery(GC/MS) is the preferred confirmatory method. Clinicalconsideration and professional judgement should be appliedto any drug of abuse test result, particularly whenpreliminary positive results are used. URINE TCA TESTING MUST BE ORDERED SEPARATELY. USE TESTMNEMONIC: UTCA ,Serum,hCG Quali.on 07-22-2024 HCG, SERUM QUAL Negative Normal [facility] Comment on above: Performed By: #### L 501.4021 #### [facility] [address] [place], [place], [address] Quantitative urine opiates m easurementOrdered By: Eric Figueroa on 07-22-2024 Opiates Ql (U) Negative < 300 ng/mL [facility] T4 Free Directon 07-22-2024 T4 FREE DIRECT 0.97 ng/dL Normal 0.76-1.46 [facility] Comment on above: Performed By: #### L 501.5425, L100.0100, L500.2500 #### [facility] [address] [place], [address] TSH QnOrdered By: Eric ward on 07-22-2024 Thyroid Stimulating Hormone (TSH) 3.100 uIU/mL 0.358-3.740 [facility] Thyroid Stim Hormone (TSH)on 07-22-2024 TSH 3.100 uIU/mL Normal 0.358-3.740 [facility] Comment on above: Performed By: #### L 501.4021 #### [facility] [address] [place], [address] Urine Drug Screen (VISTA)on 07-22-2024 AMPHETAMINES Negative Normal <1000 ng/mL [facility] Comment on above: Performed By: #### L 501.4021 #### [facility] [address] [place], [address] BARBITIURATES Negative Normal < 200 ng/mL [facility] Comment on above: Performed By: #### L 501.4021 #### [facility] [address] [place], [address] BENZODIAZIPINE Negative Normal < 200 ng/mL [facility] Comment on above: Performed By: #### L 501.4021 #### [facility] [address] [place], [address] COCAINE Negative Normal < 300 ng/mL [facility] Comment on above: Performed By: #### L 501.4021 #### [facility] [address] [place], [address] ECSTACY Negative Normal < 500 ng/mL [facility] Comment on above: Performed By: #### L 501.4021 #### [facility] [address] [place], [address] METHADONE Negative Normal < 300 ng/mL [facility] Comment on above: Performed By: #### L 501.4021 #### [facility] [address] [facility] [address] OPIATES Negative Normal < 300 ng/mL [facility] Comment on above: Performed By: #### L 501.4021 #### [facility] [address] [place], [address] PCP Negative Normal < 25 ng/mL [facility] Comment on above: Performed By: #### L 501.4021 #### [facility] [address] [place] [address] THC Negative Normal < 50 ng/mL [facility] Comment on above: Performed By: #### L 501.4021 #### [facility] [address] [place], [address] VISTA UDS PH 5 Normal [facility] Comment on above: Performed By: #### L 501.4021 #### [facility] [address] [place] [address] Urine amphetamine measuremen tOrdered By: Eric Figueroa on 07-22-2024 Amphetamines Ql (U) Negative <1000 ng/mL [facility] Urine barbiturates measureme ntOrdered By: Eric Figueroa on 07-22-2024 Urine Barbiturates Screen Negative < 200 ng/mL [facility] Urine benzodiazepine levelOr dered By: Eric Figueroa on 07-22-2024 Benzodiazepines Ql (U) Negative < 200 ng/mL [facility] Urine cocaine levelOrdered B y: Eric Figueroa on 07-22-2024 Cocaine Ql (U) Negative < 300 ng/mL [facility] Urine [id number] abinol (THC) measurementOrdered By: Eric Figueroa on 07-22-2024 Cannabinoids Screen Ql (U) Negative < 50 ng/mL [facility] Urine methylenedioxymethamph etamine (MDMA) measurementOrdered By: Eric Figueroa on 07-22-2024 MDMA (Ecstasy) Screen Negative < 500 ng/mL [facility] Urine phencyclidine (PCP) de tectionOrdered By: Eric Figueroa on 07-22-2024 Phencyclidine Ql (U) Negative < 25 ng/mL [facility] Absolute neutrophil countOrd ered By: Ashlyn Gates on 06-17-2024 Neutrophils (Bld) [#/Vol] 6.9 10*3/uL 2.0-7.7 [facility] Albumin to globulin ratioOrd ered By: Ashlyn Gates on 06-17-2024 Albumin/Globulin [Mass ratio] 0.8 {ratio} Low 0.9-2.4 [facility] Basophil percentageOrdered B y: Ashlyn Gates on 06-17-2024 Basophils/100 WBC (Bld) 0.5 % 0-[address] [facility] Bilirubin, totalOrdered By: Ashlyn Gates on 06-17-2024 Bilirubin [Mass/Vol] 0.40 mg/dL 0.20-1.00 [facility] Comment on above: For patients on eltr ombopag therapy, use of Dimension [place] TBIL is not recommended. Blood urea nitrogen (BUN)/cr eatinine ratioOrdered By: Ashlyn Gates on 06-17-2024 Urea nitrogen/Creatinine [Mass ratio] 19.7 mg/mg 10-20 [facility] CBC W/Diff, Automatedon 05-30 Absolute Lymph 2.80 X10 3/uL Normal 0.83-4.51 [facility] Comment on above: Performed By: #### L 501.5436, L100.0100, L500.2500 #### [facility] [address] [place], [place], [id number] Absolute Neut 6.9 X10 3/uL Normal 2.0-7.7 [facility] Comment on above: Performed By: #### L 501.5425, L100.0100, L500.2500 #### [facility] [address] [place], [address] Basophils/100 WBC (Bld) 0.5 % Normal 0-[address] [facility] Comment on above: Performed By: #### L 501.5425, L100.0100, L500.2500 #### [facility] [address] [place], [address] Eosinophils/100 WBC (Bld) 2.2 % Normal 0-5 [facility] Comment on above: Performed By: #### L 501.5425, L100.0100, L500.2500 #### [facility] [address] [place], [address] Erythrocyte distribution width (RBC) [Ratio] 13.7 % Normal 11.6-14.6 [facility] Comment on above: Performed By: #### L 501.5425, L100.0100, L500.2500 #### [facility] [address] [place], [address] Hematocrit (Bld) [Volume fraction] 37.3 % Normal 37-47 [facility] Comment on above: Performed By: #### L 501.5425, L100.0100, L500.2500 #### [facility] [address] [place], [address] Hemoglobin (Bld) [Mass/Vol] 12.2 g/dL Normal 12.0-15.0 [facility] Comment on above: Performed By: #### L 501.5425, L100.0100, L500.2500 #### [facility] [address] [place], [address] IG% 0.400 Normal 0.0-0.9 [facility] Comment on above: Result Comment: IG% - Immature Granulocytes (promyelocytes, myelocytes and metamyelocytes) > 1% indicates that a LEFT SHIFT is Present. Performed By: #### L 501.5425, L100.0100, L500.2500 #### [facility] [address] [place], [address] Lymphocytes/100 WBC (Bld) 26.5 % Normal 19-41 [facility] Comment on above: Performed By: #### L 501.5425, L100.0100, L500.2500 #### [facility] [address] [place], [address] MCH (RBC) [Entitic mass] 26.5 pg Low 27.0-32.0 [facility] Comment on above: Performed By: #### L 501.5425, L100.0100, L500.2500 #### [facility] [address] [place], [address] MCHC (RBC) [Mass/Vol] 32.7 g/dL Normal 32-36 [facility] Comment on above: Performed By: #### L 501.5425, L100.0100, L500.2500 #### [facility] [address] [place], [address] MCV (RBC) [Entitic vol] 80.9 fL Low 81-[address] [facility] Comment on above: Performed By: #### L 501.5425, L100.0100, L500.2500 #### [facility] [address] [place], [address] Monocytes/100 WBC (Bld) 4.8 % Normal 0-[address] [facility] Comment on above: Performed By: #### L 501.5425, L100.0100, L500.2500 #### [facility] [address] [place], [address] Neutrophils/100 WBC (Bld) 65.6 % Normal 47-70 [facility] Comment on above: Performed By: #### L 501.5425, L100.0100, L500.2500 #### [facility] [address] [place], [address] Nucleated RBC (Bld) [#/Vol] 0 10*3/uL Normal 0-5 [facility] Comment on above: Performed By: #### L 501.5425, L100.0100, L500.2500 #### [facility] [address] [place], [address] Platelet mean volume (Bld) [Entitic vol] 11.3 fL Normal 6.2-12.0 [facility] Comment on above: Performed By: #### L 501.5425, L100.0100, L500.2500 #### [facility] [address] [place], [address] Platelets (Bld) [#/Vol] 300 10*3/uL Normal 150-450 [facility] Comment on above: Performed By: #### L 501.5425, L100.0100, L500.2500 #### [facility] [address] [place], [address] RBC (Bld) [#/Vol] 4.61 10*6/uL Normal 4.2-5.4 [facility] Comment on above: Performed By: #### L 501.5425, L100.0100, L500.2500 #### [facility] [address] [place], [address] RDW SD 40.0 fl Normal 35.1-43.9 [facility] Comment on above: Performed By: #### L 501.5425, L100.0100, L500.2500 #### [facility] [address] [place], [address] WBC (Bld) [#/Vol] 10.6 10*3/uL Normal 4.4-11.0 [facility] Comment on above: Performed By: #### L 501.5425, L100.0100, L500.2500 #### [facility] [address] [place], [address] Carbon dioxide measurementOr dered By: Ashlyn Gates on 06-17-2024 CO2 [Moles/Vol] 27.0 mmol/L 21.0-32.0 [facility] Chloride measurementOrdered By: Ashlyn Gates on 06-17-2024 Chloride [Moles/Vol] 107 mmol/L 98-107 [facility] Comprehensive Metabolic Prof ilon 06-17-2024 Albumin [Mass/Vol] 3.1 g/dL Low 3.2-5.0 [facility] Comment on above: Performed By: #### L 501.5425, L100.0100, L500.2500 #### [facility] [address] [place], [address] Albumin/Globulin [Mass ratio] 0.8 {ratio} Low 0.9-2.4 [facility] Comment on above: Performed By: #### L 501.5425, L100.0100, L500.2500 #### [facility] [address] [place], [address] ALK P 95 U/L Normal 45-117 [facility] Comment on above: Performed By: #### L 501.5425, L100.0100, L500.2500 #### [facility] [address] [place], [address] ALT [Catalytic activity/Vol] 16 U/L Normal 13-56 [facility] Comment on above: Performed By: #### L 501.5425, L100.0100, L500.2500 #### [facility] [address] [place], [address] AST [Catalytic activity/Vol] 9 U/L Low 15-37 [facility] Comment on above: Performed By: #### L 501.5425, L100.0100, L500.2500 #### [facility] [address] [place], [address] Bilirubin [Mass/Vol] 0.40 mg/dL Normal 0.20-1.00 [facility] Comment on above: Result Comment: For patients on eltrombopag therapy, use of Dimension [place] TBIL is not recommended. Performed By: #### L 501.5425, L100.0100, L500.2500 #### [facility] [address] [place], [address] BUN/CRE 19.7 RATIO Normal 10-20 [facility] Comment on above: Performed By: #### L 501.5425, L100.0100, L500.2500 #### [facility] [address] [place], [address] CA,Total 8.9 mg/dL Normal 8.5-10.1 [facility] Comment on above: Performed By: #### L 501.5425, L100.0100, L500.2500 #### [facility] [address] [place], [address] Chloride [Moles/Vol] 107 mmol/L Normal 98-107 [facility] Comment on above: Performed By: #### L 501.5425, L100.0100, L500.2500 #### [facility] [address] [place], [address] CO2 [Moles/Vol] 27.0 mmol/L Normal 21.0-32.0 [facility] Comment on above: Performed By: #### L 501.5425, L100.0100, L500.2500 #### [facility] [address] [place], [address] Creatinine [Mass/Vol] 0.66 mg/dL Normal 0.55-1.02 [facility] Comment on above: Result Comment: The validity of the calculated GFR GFRAA in patients over 70 years has not been determined. Clinical correlation is essential. Performed By: #### L 501.5425, L100.0100, L500.2500 #### [facility] [address] [place], [address] EST GFR - AA 137 mL/min Normal >60 [facility] Comment on above: Result Comment: Afri can [place] GFR Calc Performed By: #### L 501.5425, L100.0100, L500.2500 #### [facility] [address] [place], [address] GAP 5 Normal 5-15 [facility] Comment on above: Performed By: #### L 501.5425, L100.0100, L500.2500 #### [facility] [address] [place], [address] GFR/1.73 sq M.predicted among non-blacks MDRD (S/P/Bld) [Vol rate/Area] 113 mL/min/{1.73_m2} Normal >60 [facility] Comment on above: Result Comment: Non- GFR Calc Performed By: #### L 501.5425, L100.0100, L500.2500 #### [facility] [address] [place], [address] Globulin (S) [Mass/Vol] 3.8 g/dL Normal 2.2-4.[address] [facility] Comment on above: Performed By: #### L 501.5425, L100.0100, L500.2500 #### [facility] [address] [place], [address] Glucose [Mass/Vol] 113 mg/dL High 74-106 [facility] Comment on above: Result Comment: Fast ing Glucose result from 100 to 125 mg/dL suggests IMPAIRED HOMEOSTASIS per A.D.A. criteria. Performed By: #### L 501.5425, L100.0100, L500.2500 #### [facility] [address] [place], [address] Potassium [Moles/Vol] 4.0 mmol/L Normal 3.5-5.1 [facility] Comment on above: Performed By: #### L 501.5425, L100.0100, L500.2500 #### [facility] [address] [place], [address] Sodium [Moles/Vol] 139 mmol/L Normal 136-145 [facility] Comment on above: Performed By: #### L 501.5425, L100.0100, L500.2500 #### [facility] [address] [place], [address] T PROT 6.9 g/dL Normal 6.4-8.2 [facility] Comment on above: Performed By: #### L 501.5425, L100.0100, L500.2500 #### [facility] [address] [place], [address] Urea nitrogen [Mass/Vol] 13 mg/dL Normal 7-18 [facility] Comment on above: Performed By: #### L 501.5425, L100.0100, L500.2500 #### [facility] [address] [place], [address] Eosinophil percentageOrdered By: Ashlyn Gates on 06-17-2024 Eosinophils/100 WBC (Bld) 2.2 % 0-5 [facility] Erythrocyte distribution wid th ratioOrdered By: Ashlyn Gates on 06-17-2024 Erythrocyte distribution width (RBC) [Ratio] 13.7 % 11.6-14.6 [facility] Erythrocyte distribution wid th standard deviationOrdered By: Ashlyn Gates on 06-17-2024 Erythrocyte distribution width (RBC) [Entitic vol] 40.0 fL 35.1-43.9 [facility] Estimated glomerular filtrat ion rate (GFR) AmericanOrdered By: Ashlyn Gates on 06-17-2024 Estimated GFR (MDRD) Amer 137 mL/min >60 [facility] Comment on above: GFR Calc Ferritinon 06-17-2024 Ferritin [Mass/Vol] 19 ng/mL Normal 8-252 [facility] Comment on above: Performed By: #### L 501.5425, L100.0100, L500.2500 #### [facility] [address] [place], [place], [id number] Ferritin measurementOrdered By: Ashlyn Gates on 06-17-2024 Ferritin [Mass/Vol] 19 ng/mL 8-252 [facility] Glomerular filtration rate ( GFR) estimationOrdered By: Ashlyn Gates on 06-17-2024 Estimated GFR (MDRD) Non-Af Amer 113 mL/min >60 [facility] Comment on above: Non- GFR Calc Glucose measurementOrdered B y: Ashlyn Gates on 06-17-2024 Glucose [Mass/Vol] 113 mg/dL High 74-106 [facility] Comment on above: Fasting Glucose resu lt from 100 to 125 mg/dL suggests IMPAIRED HOMEOSTASIS per A.D.A. criteria. Hematocrit Auto (Bld) [Volum e fraction]Ordered By: Ashlyn Gates on 06-17-2024 Hematocrit (Bld) [Volume fraction] 37.3 % 37-47 [facility] Hemoglobin A1con 06-17-2024 HbA1c (Bld) [Mass fraction] 5.4 % Normal 3.8-5.6 [facility] Comment on above: Result Comment: Norm al < 5.7 % Prediabetic 5.7 - 6.4 % Diabetic >or= 6.5 % Please note range changes. Performed By: #### L 501.5425, L100.0100, L500.2500 #### [facility] [address] [place], [place], [id number] Hemoglobin A1c percentageOrd ered By: Ashlyn Gates on 06-17-2024 HbA1c (Bld) [Mass fraction] 5.4 % 3.8-5.6 [facility] Comment on above: Normal < 5.7 % Predi abetic 5.7 - 6.4 % Diabetic >or= 6.5 % Please note range changes. Hemoglobin measurementOrdere d By: Ashlyn Gates on 06-17-2024 Hemoglobin (Bld) [Mass/Vol] 12.2 g/dL 12.0-15.0 [facility] High density lipoprotein (HD L) measurementOrdered By: Ashlyn Gates on 06-17-2024 Cholesterol in HDL [Mass/Vol] 52 mg/dL >40 [facility] Comment on above: The drugs N-Acetylcy steine and Metamizole may falsely depress this assay. Reference Range HDL <40 mg/dL Low HDL Cholesterol HDL >or= 60 mg/dL High HDL Cholesterol Immature granulocytes/100 WB C Auto (Bld)Ordered By: Ashlyn Gates on 06-17-2024 Immature granulocytes/100 WBC (Bld) 0.400 % 0.0-0.9 [facility] Comment on above: IG% - Immature Granu locytes (promyelocytes, myelocytes and metamyelocytes) > 1% indicates that a LEFT SHIFT is Present. Iron (Unsp spec) [Mass/Mass] Ordered By: Ashlyn Gates on 06-17-2024 Iron [Mass/Vol] 64 ug/dL 50-170 [facility] Iron saturation [Mass fracti on]Ordered By: Ashlyn Gates on 06-17-2024 Iron Saturation 15.7 % 15.0-55.0 [facility] Iron+Iron Binding Capacityon 06-17-2024 Iron [Mass/Vol] 64 ug/dL Normal 50-170 [facility] Comment on above: Performed By: #### L 501.5425, L100.0100, L500.2500 #### [facility] [address] [place], [address] IRON SATURATION 15.7 Normal 15.0-55.0 [facility] Comment on above: Performed By: #### L 501.5425, L100.0100, L500.2500 #### [facility] [address] [place], [address] TIBC 408 ug/dL Normal 250-450 [facility] Comment on above: Performed By: #### L 501.5425, L100.0100, L500.2500 #### [facility] [address] [place], [address] Laboratory - Chemistry and C hemistry - challengeOrdered By: Ashlyn Gates on 06-17-2024 AST [Catalytic activity/Vol] 9 U/L Low 15-37 [facility] Lipid Profileon 06-17-2024 Cholesterol [Mass/Vol] 228 mg/dL High 200 [facility] Comment on above: Result Comment: <200 mg/dL Desirable 200-240 mg/dL Borderline >240 mg/dL High Risk Performed By: #### L 501.5425, L100.0100, L500.2500 #### [facility] [address] [place], [address] Cholesterol in HDL [Mass/Vol] 52 mg/dL Normal [facility] Comment on above: Result Comment: The drugs N-Acetylcysteine and Metamizole may falsely depress this assay. Reference Range HDL <40 mg/dL Low HDL Cholesterol HDL >or= 60 mg/dL High HDL Cholesterol Performed By: #### L 501.5425, L100.0100, L500.2500 #### [facility] [address] [place], [address] Cholesterol in LDL [Mass/Vol] 142 mg/dL High 0-130 [facility] Comment on above: Performed By: #### L 501.5425, L100.0100, L500.2500 #### [facility] [address] [place], [address] Cholesterol in VLDL [Mass/Vol] 34 mg/dL Normal 5-40 [facility] Comment on above: Performed By: #### L 501.5425, L100.0100, L500.2500 #### [facility] [address] [place], [address] Triglyceride [Mass/Vol] 170 mg/dL Normal [facility] Comment on above: Result Comment: The drugs N-Acetylcysteine and Metamizole may falsely depress this assay. Serum Triglycerides Reference Interval Normal <150 mg/dL Borderline high 150 - 199 mg/dL High 200 - 499 mg/dL Very High > or = 500 mg/dL Performed By: #### L 501.5425, L100.0100, L500.2500 #### [facility] [address] [place], [place], [id number] Low density lipoprotein (LDL ) cholesterol measurementOrdered By: Ashlyn Gates on 06-17-2024 Cholesterol in LDL [Mass/Vol] 142 mg/dL High 0-130 [facility] Lymphocytes Auto (Unsp spec) [#/Vol]Ordered By: Ashlyn Gates on 06-17-2024 Lymphocytes (Bld) [#/Vol] 2.80 10*3/uL 0.83-4.51 [facility] Lymphocytes/100 WBC Auto (Un sp spec)Ordered By: Ashlyn Gates on 06-17-2024 Lymphocytes/100 WBC (Bld) 26.5 % 19-41 [facility] MCV (mean corpuscular volume ) determinationOrdered By: Ashlyn Gates on 06-17-2024 MCV (RBC) [Entitic vol] 80.9 fL Low 81-[address] [facility] Magnesiumon 06-17-2024 Magnesium [Mass/Vol] 1.9 mg/dL Normal 1.6-2.6 [facility] Comment on above: Performed By: #### L 501.5425, L100.0100, L500.2500 #### [facility] [address] [place], [place], [id number] Magnesium measurementOrdered By: Ashlyn Gates on 06-17-2024 Magnesium [Mass/Vol] 1.9 mg/dL 1.6-2.6 [facility] Mean corpuscular hemoglobin (MCH) determinationOrdered By: sAhlyn Gates on 06-17-2024 MCH (RBC) [Entitic mass] 26.5 pg Low 27.0-32.0 [facility] Mean corpuscular hemoglobin concentration (MCHC) determinationOrdered By: Ashlyn Gates on 06-17-2024 MCHC (RBC) [Mass/Vol] 32.7 g/dL 32-36 [facility] Mean platelet volume determi nationOrdered By: Ashlyn Gates on 06-17-2024 Platelet mean volume (Bld) [Entitic vol] 11.3 fL 6.2-12.0 [facility] Monocyte percentageOrdered B y: Ashlyn Gates on 06-17-2024 Monocytes/100 WBC (Bld) 4.8 % 0-[address] [facility] Neutrophil percentageOrdered By: Ashlyn Gates on 06-17-2024 Neutrophils/100 WBC (Bld) 65.6 % 47-70 [facility] Nucleated red blood cell per centageOrdered By: Ashlyn Gates on 06-17-2024 Nucleated RBC/100 WBC (Bld) [Ratio] 0 % 0-5 [facility] Platelet countOrdered By: Ra aroldo Gates on 06-17-2024 Platelets (Bld) [#/Vol] 300 10*3/uL 150-450 [facility] Potassium measurementOrdered By: Ashlyn Gates on 06-17-2024 Potassium [Moles/Vol] 4.0 mmol/L 3.5-5.1 [facility] RBC Auto (Bld) [#/Vol]Ordere d By: Ashlyn Gates on 06-17-2024 RBC (Bld) [#/Vol] 4.61 10*6/uL 4.2-5.4 [facility] Serum anion gap measurementO rdered By: Ashlyn Gates on 06-17-2024 Anion gap [Moles/Vol] 5 mmol/L 5-15 [facility] Serum globulin measurementOr dered By: Ashlyn Gates on 06-17-2024 Globulin (S) [Mass/Vol] 3.8 g/dL 2.2-4.[address] [facility] Serum or plasma alanine rodriguez otransferase (ALT) measurementOrdered By: Ashlyn Gates on 06-17-2024 ALT [Catalytic activity/Vol] 16 U/L 13-56 [facility] Serum or plasma albumin sarina urement (mass/volume)Ordered By: Ashlyn Gates on 06-17-2024 Albumin [Mass/Vol] 3.1 g/dL Low 3.2-5.0 [facility] Serum or plasma alkaline mayco sphatase measurementOrdered By: Ashlyn Gates on 06-17-2024 ALP [Catalytic activity/Vol] 95 U/L 45-117 [facility] Serum or plasma calcium sarina urement (mass/volume)Ordered By: Ashlyn Gates on 06-17-2024 Calcium [Mass/Vol] 8.9 mg/dL 8.5-10.1 [facility] Serum or plasma cholesterol measurement (mass/volume)Ordered By: Ashlyn Gates on 06-17-2024 Cholesterol [Mass/Vol] 228 mg/dL High <200 [facility] Comment on above: <200 mg/dL Desirable 200-240 mg/dL Borderline >240 mg/dL High Risk Serum or plasma creatinine m easurement (mass/volume)Ordered By: Ashlyn Gates on 06-17-2024 Creatinine [Mass/Vol] 0.66 mg/dL 0.55-1.02 [facility] Comment on above: The validity of the calculated GFR & GFRAA in patients over 70 years has not been determined. Clinical correlation is essential. Serum or plasma urea nitroge n measurement (mass/volume)Ordered By: Ashlyn Gates on 06-17-2024 Urea nitrogen [Mass/Vol] 13 mg/dL 7-18 [facility] Sodium levelOrdered By: Adrianna Gates on 06-17-2024 Sodium [Moles/Vol] 139 mmol/L 136-145 [facility] TIBCOrdered By: Ashlyn mendes on 06-17-2024 Total Iron Binding Capacity 408 ug/dL 250-450 [facility] Total proteinOrdered By: Renetta Gates on 06-17-2024 Protein [Mass/Vol] 6.9 g/dL 6.4-8.2 [facility] Triglycerides measurementOrd ered By: Ashlyn Gates on 06-17-2024 Triglyceride [Mass/Vol] 170 mg/dL <[address] [facility] Comment on above: The drugs N-Acetylcy steine and Metamizole may falsely depress this assay.Serum Triglycerides Reference Interval Normal <150 mg/dL Borderline high 150 - 199 mg/dL High 200 - 499 mg/dL Very High > or = 500 mg/dL Very low density lipoprotein (VLDL) cholesterol measurementOrdered By: Ashlyn Gates on 06-17-2024 VLDL Cholesterol 34 mg/dL 5-40 [facility] Vitamin B12on 06-17-2024 Cobalamin (Vitamin B12) [Mass/Vol] 683 pg/mL Normal 211-911 [facility] Comment on above: Performed By: #### L 501.5425, L100.0100, L500.2500 #### [facility] [address] [place], [address] Vitamin B12 measurementOrder ed By: Ashlyn Gates on 06-17-2024 Cobalamin (Vitamin B12) [Mass/Vol] 683 pg/mL 211-911 [facility] White blood cell (WBC) count Ordered By: Ashlyn Gates on 06-17-2024 WBC (Bld) [#/Vol] 10.6 10*3/uL 4.4-11.0 [facility] ED Prov Noteon 01-21-2024 ED Prov Note [place] ED Physician Note: NAME: Yemi Jc 28 y.o. CSN: [id number] PCP: Ashlyn Gates PA-C ED Course / Medical Decision Making: Patient comes in with right foot and ankle pain. X-ray of the ankle is negative for fracture dislocation. Foot x-ray shows a subtle cortical irregularity at the base of the fifth proximal Flanax cannot exclude fracture.. Patient placed in a postop shoe and Manish wrap. Patient referred to podiatry. Patient to take ibuprofen as needed for pain and swelling. She is to ice 5 times a day 15 minutes at a time as needed for pain and swelling. She was told if worsening symptoms come back to the ER. Patient does have elevated blood pressure in ER she should have her blood pressure rechecked by primary doctor Medical Decision Making Amount and/or Complexity of Data Reviewed Independent Historian: Details: Patient gave history Radiology: Details: Reviewed Clinical Impression: 1. Sprain of right ankle, unspecified ligament, initial encounter 2. Sprain of right foot, initial encounter Disposition: Patient is being discharged to home History: Chief Complaint: Foot Pain and Ankle Pain HPI: The history was obtained from the patient. She is a 28 y.o. female who presents with a chief complaint of Foot Pain and Ankle Pain. HPI patient comes in with right foot and ankle pain. Patient states she rolled her ankle misstepped yesterday on the stairs. She can bear weight but does have difficulty. She denies . She has some tingling and numbness in the foot. She denies any other injury PMHx: Past Medical History: Diagnosis Date Hypertension Psychiatric disorder PMSx: Past Surgical History: Procedure Laterality Date APPENDECTOMY WISDOM TOOTH EXTRACTION FAM. Hx: Family History Problem Relation Age of Onset Hypertension Maternal Grandmother SOC. Hx: Social History Socioeconomic History Marital status: Single Tobacco Use Smoking status: Never Substance and Sexual Activity Alcohol use: No MEDs: Previous Medications Medication Sig busPIRone (BUSPAR) 30 MG tablet Take 1 (one) tablet (30 mg total) by mouth 2 (two) times a day . lisdexamfetamine (VYVANSE) 50 MG capsule Take 1 (one) capsule (50 mg total) by mouth daily . losartan (COZAAR) 50 MG tablet Take 1 (one) tablet (50 mg total) by mouth 2 (two) times a day . omeprazole (PRILOSEC) 20 MG capsule Take 1 (one) capsule (20 mg total) by mouth 2 (two) times a day before meals . vilazodone (VIIBRYD) 20 mg tablet TAKE 1 TABLET BY MOUTH ONCE DAILY. (Start after finishing the 7 days of 10mg dose) gabapentin (NEURONTIN) 300 MG capsule Take 300 mg by mouth 3 (three) times a day. ibuprofen (ADVIL,MOTRIN) 800 MG tablet TAKE 1 TABLET BY MOUTH FOUR TIMES DAILY WITH FOOD NEEDED FOR PAIN TRI-PREVIFEM, 28, 0.18/0.215/0.25 mg-35 mcg (28) per tablet TAKE 1 TABLET BY MOUTH EVERY DAY start first pack on first monday after menstruation ALL: Allergies Allergen Reactions Diclofenac Rash and Unknown ROS: Review of Systems Constitutional: Negative. Musculoskeletal: Negative for back pain, gait problem, joint swelling, myalgias, neck pain and neck stiffness. Right foot and ankle pain Skin: Negative. Neurological: Negative for weakness and numbness. All other systems reviewed and are negative. Positives and pertinent negatives as per HPI. All other systems were reviewed and are negative. Physical Exam: Patient Vitals for the past 24 hrs: BP Temp Temp src Pulse Resp SpO2 Height Weight 01/21/24 1124 (!) 187/94 -- -- -- -- -- -- -- 01/21/24 1123 (!) 213/97 98.5 degrees F (36.9 degrees C) Oral 94 18 98 % 5' 5 (!) 163.3 kg (360 lb) Physical Exam Vitals and nursing note reviewed. Cardiovascular: Pulses: Normal pulses. Musculoskeletal: Right lower leg: Normal. Right ankle: No swelling, deformity, ecchymosis or lacerations. Tenderness present over the lateral malleolus. No medial malleolus, ATF ligament, AITF ligament, CF ligament, posterior TF ligament, base of 5th metatarsal or proximal fibula tenderness. Decreased range of motion. Anterior drawer test negative. Normal pulse. Right foot: Normal range of motion and normal capillary refill. Swelling, tenderness and bony tenderness present. No deformity, bunion, Charcot foot, foot drop, prominent metatarsal heads, laceration or crepitus. Normal pulse. Neurological: Mental Status: She is alert. Sensory: No sensory deficit. Motor: No weakness. Laboratory & Radiological Imaging (if done): Labs Reviewed - No data to display XR Ankle Right 3+ Views (Standard) Preliminary Result No acute fracture or traumatic malalignment. [employer] Workstation ID: [id number] XR Foot Right 3+ Views (Standard) Preliminary Result Subtle cortical irregularity at the base of the 5th proximal phalanx. Cannot exclude underlying nondisplaced fracture. Please correlate with point tenderness. No additi (more content not included)... Normal [facility] XR ANKLE RIGHT 3+ VIEWS (STA NDARD)on 01-21-2024 XR ANKLE RIGHT 3+ VIEWS (STANDARD) EXAMINATION: XR ANKLE RIGHT 3+ VIEWS (STANDARD) HISTORY: ORDERING SYSTEM PROVIDED HISTORY: ankle pain, TECHNOLOGIST PROVIDED HISTORY: Injury/Trauma Reason for exam: pain Cancer History: n Surgery, RadiationHistory: n Encounter Type: Initial Mechanism of injury: missed 1 step while walking down stairs yesterday and rolled her right ankle ORDERING SYSTEM PROVIDED DIAGNOSIS CODES: COMPARISON: None FINDINGS: Three views of the right ankle. No acute fracture. Large plantar calcaneal enthesophyte. Joints and ankle mortise are anatomically aligned. Joint spaces are preserved. There is diffuse soft tissue swelling of the ankle. IMPRESSION: No acute fracture or traumatic malalignment. [employer] Workstation ID: [id number] Dictated by: STACY OSUNA on Calvin Jan 21, 2024 1:45:19 PM EDT Transcribed by: MEENA HILARIO on Calvin Jan 21, 2024 1:46:14 PM EDT Finalized by: STACY OSUNA on Calvin Jan 21, 2024 8:45:08 PM EDT [facility] Comment on above: Order Comment: Injur y/Trauma or Illness?:Injury/Trauma How long have you had these symptoms (acute/chronic)?:Acute Reason for exam?:pain History of cancer?:n Surgeries, chemotherapy, or radiation?:n Type of Exam?:Initial Mechanism of injury?:missed 1 step while walking down stairs yesterday and rolled her right ankle XR FOOT RIGHT 3+ VIEWS (ANASTASIA CHAVARRIA)on 01-21-2024 XR FOOT RIGHT 3+ VIEWS (STANDARD) EXAMINATION: XR FOOT RIGHT 3+ VIEWS (STANDARD) HISTORY: ORDERING SYSTEM PROVIDED HISTORY: foot pain, TECHNOLOGIST PROVIDED HISTORY: Injury/Trauma Reason for exam: foot pain Cancer History: n Surgery, RadiationHistory: n Encounter Type: Initial Mechanism of injury: missed 1 step while walking down stairs yesterday and rolled her right ankle ORDERING SYSTEM PROVIDED DIAGNOSIS CODES: COMPARISON: None. FINDINGS: Three views of the right foot. Subtle cortical irregularity at the base of the 5th proximal phalangeal base. No additional fractures. Large plantar calcaneal enthesophyte. No subluxation or dislocation. Mild 1st MTP joint degenerative changes. Diffuse soft tissue swelling. IMPRESSION: Subtle cortical irregularity at the base of the 5th proximal phalanx. Cannot exclude underlying nondisplaced fracture. Please correlate with point tenderness. No additional fractures. [employer] Workstation ID: [id number] Dictated by: STACY OSUNA on Calvin Jan 21, 2024 1:48:47 PM EDT Transcribed by: MEENA HILARIO on Calvin Jan 21, 2024 1:49:23 PM EDT Finalized by: STACY OSUNA on Calvin Jan 21, 2024 8:47:41 PM EDT [facility] Comment on above: Order Comment: Injur y/Trauma or Illness?:Injury/Trauma How long have you had these symptoms (acute/chronic)?:Acute Reason for exam?:foot pain History of cancer?:n Surgeries, chemotherapy, or radiation?:n Type of Exam?:Initial Mechanism of injury?:missed 1 step while walking down stairs yesterday and rolled her right ankle CBC W/Diff, Automatedon 11-26 Absolute Lymph 2.54 X10 3/uL Normal 0.83-4.51 [facility] Comment on above: Performed By: #### L 501.5425, L100.0100, L500.2500 #### [facility] [address] [place], [address] Absolute Neut 5.9 X10 3/uL Normal 2.0-7.7 [facility] Comment on above: Performed By: #### L 501.5425, L100.0100, L500.2500 #### [facility] [address] [place], [address] Basophils/100 WBC (Bld) 0.6 % Normal 0-[address] [facility] Comment on above: Performed By: #### L 501.5425, L100.0100, L500.2500 #### [facility] [address] [place], [address] Eosinophils/100 WBC (Bld) 1.9 % Normal 0-5 [facility] Comment on above: Performed By: #### L 501.5425, L100.0100, L500.2500 #### [facility] [address] [place], [address] Erythrocyte distribution width (RBC) [Ratio] 14.0 % Normal 11.6-14.6 [facility] Comment on above: Performed By: #### L 501.5425, L100.0100, L500.2500 #### [facility] [address] [place], [address] Hematocrit (Bld) [Volume fraction] 37.7 % Normal 37-47 [facility] Comment on above: Performed By: #### L 501.5425, L100.0100, L500.2500 #### [facility] [address] [place], [address] Hemoglobin (Bld) [Mass/Vol] 11.9 g/dL Low 12.0-15.0 [facility] Comment on above: Performed By: #### L 501.5425, L100.0100, L500.2500 #### [facility] [address] [place], [address] IG% 0.500 Normal 0.0-0.9 [facility] Comment on above: Result Comment: IG% - Immature Granulocytes (promyelocytes, myelocytes and metamyelocytes) > 1% indicates that a LEFT SHIFT is Present. Performed By: #### L 501.5425, L100.0100, L500.2500 #### [facility] [address] [place], [address] Lymphocytes/100 WBC (Bld) 27.5 % Normal 19-41 [facility] Comment on above: Performed By: #### L 501.5425, L100.0100, L500.2500 #### [facility] [address] [place], [address] MCH (RBC) [Entitic mass] 24.9 pg Low 27.0-32.0 [facility] Comment on above: Performed By: #### L 501.5425, L100.0100, L500.2500 #### [facility] [address] [place], [address] MCHC (RBC) [Mass/Vol] 31.6 g/dL Low 32-36 [facility] Comment on above: Performed By: #### L 501.5425, L100.0100, L500.2500 #### [facility] [address] [place], [address] MCV (RBC) [Entitic vol] 79.0 fL Low 81-[address] [facility] Comment on above: Performed By: #### L 501.5425, L100.0100, L500.2500 #### [facility] [address] [place], [address] Monocytes/100 WBC (Bld) 5.3 % Normal 0-10 [facility] Comment on above: Performed By: #### L 501.5425, L100.0100, L500.2500 #### [facility] [address] [place], [address] Neutrophils/100 WBC (Bld) 64.2 % Normal 47-70 [facility] Comment on above: Performed By: #### L 501.5425, L100.0100, L500.2500 #### [facility] [address] [place], [address] Nucleated RBC (Bld) [#/Vol] 0 10*3/uL Normal 0-5 [facility] Comment on above: Performed By: #### L 501.5425, L100.0100, L500.2500 #### [facility] [address] [place], [address] Platelet mean volume (Bld) [Entitic vol] 11.4 fL Normal 6.2-12.0 [facility] Comment on above: Performed By: #### L 501.5425, L100.0100, L500.2500 #### [facility] [address] [place], [address] Platelets (Bld) [#/Vol] 315 10*3/uL Normal 150-450 [facility] Comment on above: Performed By: #### L 501.5425, L100.0100, L500.2500 #### [facility] [address] [place], [address] RBC (Bld) [#/Vol] 4.77 10*6/uL Normal 4.2-5.4 [facility] Comment on above: Performed By: #### L 501.5425, L100.0100, L500.2500 #### [facility] [address] [place], [address] RDW SD 40.3 fl Normal 35.1-43.9 [facility] Comment on above: Performed By: #### L 501.5425, L100.0100, L500.2500 #### [facility] [address] [place], [address] WBC (Bld) [#/Vol] 9.2 10*3/uL Normal 4.4-11.0 [facility] Comment on above: Performed By: #### L 501.5425, L100.0100, L500.2500 #### [facility] [address] [place], [address] Comprehensive Metabolic Prof [facility] 12-14-2023 Albumin [Mass/Vol] 3.2 g/dL Normal 3.2-5.0 [facility] Comment on above: Performed By: #### L 501.5425, L100.0100, L500.2500 #### [facility] [address] [place], [address] Albumin/Globulin [Mass ratio] 0.8 {ratio} Low 0.9-2.4 [facility] Comment on above: Performed By: #### L 501.5425, L100.0100, L500.2500 #### [facility] [address] [place], [address] ALK P 76 U/L Normal 45-117 [facility] Comment on above: Performed By: #### L 501.5425, L100.0100, L500.2500 #### [facility] [address] [place], [address] ALT [Catalytic activity/Vol] 22 U/L Normal 13-56 [facility] Comment on above: Performed By: #### L 501.5425, L100.0100, L500.2500 #### [facility] [address] [place], [address] AST [Catalytic activity/Vol] 12 U/L Low 15-37 [facility] Comment on above: Performed By: #### L 501.5425, L100.0100, L500.2500 #### [facility] [address] [place], [address] Bilirubin [Mass/Vol] 0.30 mg/dL Normal 0.20-1.00 [facility] Comment on above: Result Comment: For patients on eltrombopag therapy, use of Dimension [place] TBIL is not recommended. Performed By: #### L 501.5425, L100.0100, L500.2500 #### [facility] [address] [place], [address] BUN/CRE 16.3 RATIO Normal 10-20 [facility] Comment on above: Performed By: #### L 501.5425, L100.0100, L500.2500 #### [facility] [address] [place], [address] CA,Total 8.6 mg/dL Normal 8.5-10.1 [facility] Comment on above: Performed By: #### L 501.5425, L100.0100, L500.2500 #### [facility] [address] [place], [address] Chloride [Moles/Vol] 106 mmol/L Normal 98-107 [facility] Comment on above: Performed By: #### L 501.5425, L100.0100, L500.2500 #### [facility] [address] [place], [address] CO2 [Moles/Vol] 25.0 mmol/L Normal 21.0-32.0 [facility] Comment on above: Performed By: #### L 501.5425, L100.0100, L500.2500 #### [facility] [address] [place], [address] Creatinine [Mass/Vol] 0.62 mg/dL Normal 0.55-1.02 [facility] Comment on above: Result Comment: The validity of the calculated GFR GFRAA in patients over 70 years has not been determined. Clinical correlation is essential. Performed By: #### L 501.5425, L100.0100, L500.2500 #### [facility] [address] [place], [address] EST GFR - AA 149 mL/min Normal >60 [facility] Comment on above: Result Comment: Afri can [place] GFR Calc Performed By: #### L 501.5425, L100.0100, L500.2500 #### [facility] [address] [place], [address] GAP 7 Normal 5-15 [facility] Comment on above: Performed By: #### L 501.5425, L100.0100, L500.2500 #### [facility] [address] [place], [address] GFR/1.73 sq M.predicted among non-blacks MDRD (S/P/Bld) [Vol rate/Area] 123 mL/min/{1.73_m2} Normal >60 [facility] Comment on above: Result Comment: Non- GFR Calc Performed By: #### L 501.5425, L100.0100, L500.2500 #### [facility] [address] [place], [address] Globulin (S) [Mass/Vol] 4.0 g/dL Normal 2.2-4.2 [facility] Comment on above: Performed By: #### L 501.5425, L100.0100, L500.2500 #### [facility] [address] [place], [address] Glucose [Mass/Vol] 109 mg/dL High 74-106 [facility] Comment on above: Result Comment: Fast ing Glucose result from 100 to 125 mg/dL suggests IMPAIRED HOMEOSTASIS per A.D.A. criteria. Performed By: #### L 501.5425, L100.0100, L500.2500 #### [facility] [address] [place], [address] Potassium [Moles/Vol] 3.9 mmol/L Normal 3.5-5.1 [facility] Comment on above: Performed By: #### L 501.5425, L100.0100, L500.2500 #### [facility] [address] [place], [address] Sodium [Moles/Vol] 138 mmol/L Normal 136-145 [facility] Comment on above: Performed By: #### L 501.5425, L100.0100, L500.2500 #### [facility] [address] [place], [address] T PROT 7.2 g/dL Normal 6.4-8.2 [facility] Comment on above: Performed By: #### L 501.5425, L100.0100, L500.2500 #### [facility] [address] [place], [address] Urea nitrogen [Mass/Vol] 10 mg/dL Normal 7-18 [facility] Comment on above: Performed By: #### L 501.5425, L100.0100, L500.2500 #### [facility] [address] [place], [address] Ferritinon 12-14-2023 Ferritin [Mass/Vol] 10 ng/mL Normal 8-252 [facility] Comment on above: Performed By: #### L 503.7505, L500.2500 #### [facility] [address] [place], [address] Hemoglobin A1con 12-14-2023 HbA1c (Bld) [Mass fraction] 5.2 % Normal 3.8-5.6 [facility] Comment on above: Result Comment: Norm al < 5.7 % Prediabetic 5.7 - 6.4 % Diabetic >or= 6.5 % Please note range changes. Performed By: #### L 503.7505, L500.2500 #### [facility] [address] [place], [address] Iron+Iron Binding Capacityon 12-14-2023 Iron [Mass/Vol] 51 ug/dL Normal 50-170 [facility] Comment on above: Performed By: #### L 503.7505, L500.2500 #### [facility] [address] [place], [address] IRON SATURATION 11.9 Low 15.0-55.0 [facility] Comment on above: Performed By: #### L 503.7505, L500.2500 #### [facility] [address] [place], [address] TIBC 429 ug/dL Normal 250-450 [facility] Comment on above: Performed By: #### L 503.7505, L500.2500 #### [facility] [address] [place], [address] Lipid Profileon 12-14-2023 Cholesterol [Mass/Vol] 223 mg/dL High 200 [facility] Comment on above: Result Comment: <200 mg/dL Desirable 200-240 mg/dL Borderline >240 mg/dL High Risk Performed By: #### L 501.5425, L100.0100, L500.2500 #### [facility] [address] [place], [address] Cholesterol in HDL [Mass/Vol] 47 mg/dL Normal [facility] Comment on above: Result Comment: The drugs N-Acetylcysteine and Metamizole may falsely depress this assay. Reference Range HDL <40 mg/dL Low HDL Cholesterol HDL >or= 60 mg/dL High HDL Cholesterol Performed By: #### L 501.5425, L100.0100, L500.2500 #### [facility] [address] [place], [address] Cholesterol in LDL [Mass/Vol] 147 mg/dL High 0-130 [facility] Comment on above: Performed By: #### L 501.5425, L100.0100, L500.2500 #### [facility] [address] [place], [address] Cholesterol in VLDL [Mass/Vol] 29 mg/dL Normal 5-40 [facility] Comment on above: Performed By: #### L 501.5425, L100.0100, L500.2500 #### [facility] [address] [place], [address] Triglyceride [Mass/Vol] 144 mg/dL Normal [facility] Comment on above: Result Comment: The drugs N-Acetylcysteine and Metamizole may falsely depress this assay. Serum Triglycerides Reference Interval Normal <150 mg/dL Borderline high 150 - 199 mg/dL High 200 - 499 mg/dL Very High > or = 500 mg/dL Performed By: #### L 501.5425, L100.0100, L500.2500 #### [facility] [address] [place], [address] Magnesiumon 12-14-2023 Magnesium [Mass/Vol] 2.0 mg/dL Normal 1.6-2.6 [facility] Comment on above: Performed By: #### L 501.5425, L100.0100, L500.2500 #### [facility] [address] [place], [address] T4 Free Directon 12-14-2023 T4 FREE DIRECT 1.06 ng/dL Normal 0.76-1.46 [facility] Comment on above: Performed By: #### L 503.7505, L500.2500 #### [facility] [address] [place], [address] Thyroid Stim Hormone (TSH)on 12-14-2023 TSH 2.68 uIU/mL Normal 0.358-3.74 [facility] Comment on above: Performed By: #### L 503.7505, L500.2500 #### [facility] [address] [place], [address] Vitamin B12on 12-14-2023 Cobalamin (Vitamin B12) [Mass/Vol] 339 pg/mL Normal 211-911 [facility] Comment on above: Performed By: #### L 501.5425, L100.0100, L500.2500 #### [facility] [address] [address] [place], [address] No Panel Informationon 08-11 [facility] Work Phone: POCT BD Veritor Covid-19 Ag manually resultedon 08-12-2023 SARS-CoV-2 (COVID-19) Ag IA.rapid Ql (Resp) Positive Abnormal Presumptive negative test for SARS-CoV-2 (no antigen detected) [facility] Work Phone: POCT Influenza A/B manually resultedon 08-12-2023 POC Rapid Influenza A Negative Negative [facility] Work Phone: POC Rapid Influenza B Negative Negative [facility] Work Phone: SARS-CoV-2 (COVID-19) Ag IA. rapid Ql (Resp)on 08-12-2023 Interpretation and review of laboratory results Abnormal [facility] Work Phone: Absolute lymphocyte countOrd ered By: Ashlyn Gates on 05-17-2023 Lymphocytes Auto (Unsp spec) [#/Vol] 2.22 10*3/uL 0.83-4.51 [facility] Basophil percentageOrdered B y: Ashlyn Gates on 05-17-2023 Basophils/100 WBC (Bld) 0.6 % 0-[address] [facility] Bilirubin [Mass/Vol] 0.40 mg/dL 0.20-1.00 [facility] Comment on above: For patients on eltr ombopag therapy, use of Dimension [place] TBIL is not recommended. Chloride [Moles/Vol] 106 mmol/L 98-107 [facility] Cholesterol [Mass/Vol] 198 mg/dL <200 [facility] Comment on above: <200 mg/dL Desirable 200-240 mg/dL Borderline >240 mg/dL High Risk Eosinophils/100 WBC (Bld) 1.9 % 0-5 [facility] Glucose [Mass/Vol] 119 mg/dL 74-106 [facility] Comment on above: Fasting Glucose resu lt from 100 to 125 mg/dL suggests IMPAIRED HOMEOSTASIS per A.D.A. criteria. Neutrophils (Bld) [#/Vol] 7.3 10*3/uL 2.0-7.7 [facility] Neutrophils/100 WBC (Bld) 71.2 % 47-70 [facility] Potassium [Moles/Vol] 4.3 mmol/L 3.5-5.1 [facility] Protein [Mass/Vol] 7.4 g/dL 6.4-8.2 [facility] Sodium [Moles/Vol] 137 mmol/L 136-145 [facility] Triglyceride [Mass/Vol] 86 mg/dL <[address] [facility] Comment on above: The drugs N-Acetylcy steine and Metamizole may falsely depress this assay.Serum Triglycerides Reference Interval Normal <150 mg/dL Borderline high 150 - 199 mg/dL High 200 - 499 mg/dL Very High > or = 500 mg/dL WBC (Bld) [#/Vol] 10.3 10*3/uL 4.4-11.0 [facility] Blood erythrocytes count (nu mber/volume)Ordered By: Ashlyn Gates on 05-17-2023 RBC (Bld) [#/Vol] 4.61 10*6/uL 4.2-5.4 [facility] Blood hemoglobin measurement (mass/volume)Ordered By: Ashlyn Gates on 05-17-2023 Hemoglobin (Bld) [Mass/Vol] 12.0 g/dL 12.0-15.0 [facility] Blood lymphocytes/100 leukoc ytesOrdered By: Ashlyn Gates on 05-17-2023 Lymphocytes/100 WBC (Bld) 21.6 % 19-41 [facility] Blood monocytes/100 leukocyt esOrdered By: Ashlyn Gates on 05-17-2023 Monocytes/100 WBC (Bld) 4.4 % 0-[address] [facility] Blood platelet mean volumeOr dered By: Ashlyn Gates on 05-17-2023 Platelet mean volume (Bld) [Entitic vol] 10.7 fL 6.2-12.0 [facility] Determination of erythrocyte mean corpuscular volume (MCV)Ordered By: Ashlyn Gates on 05-17-2023 MCV (RBC) [Entitic vol] 81.1 fL 81-[address] [facility] Hematocrit Auto (Bld) [Volum e fraction]Ordered By: Ashlyn Gates on 05-17-2023 Hematocrit (Bld) [Volume fraction] 37.4 % 37-47 [facility] Iron measurement (mass/mass) Ordered By: Ashlyn Gates on 05-17-2023 Iron (Unsp spec) [Mass/Mass] 52 ug/dL 50-170 [facility] - Chemistry and C hemistry - challengeOrdered By: Ashlyn Gates on 05-17-2023 ALP [Catalytic activity/Vol] 92 U/L 45-117 [facility] ALT [Catalytic activity/Vol] 34 U/L 13-56 [facility] CO2 [Moles/Vol] 30.0 mmol/L 21.0-32.0 [facility] Cobalamin (Vitamin B12) [Mass/Vol] 397 pg/mL 211-911 [facility] Globulin (S) [Mass/Vol] 3.8 g/dL 2.2-4.[address] [facility] Magnesium [Mass/Vol] 2.0 mg/dL 1.6-2.6 [facility] Urea nitrogen/Creatinine [Mass ratio] 16.0 mg/mg 10-20 [facility] - Hematology and Cell countsOrdered By: Ashlyn Gates on 05-17-2023 Erythrocyte distribution width (RBC) [Entitic vol] 39.6 fL 35.1-43.9 [facility] Erythrocyte distribution width (RBC) [Ratio] 13.5 % 11.6-14.6 [facility] Immature granulocytes/100 WBC (Bld) 0.300 % 0.0-0.9 [facility] Comment on above: IG% - Immature Granu locytes (promyelocytes, myelocytes and metamyelocytes) > 1% indicates that a LEFT SHIFT is Present. MCH (RBC) [Entitic mass] 26.0 pg 27.0-32.0 [facility] Nucleated RBC/100 WBC (Bld) [Ratio] 0 % 0-5 [facility] MCHC Auto (RBC) [Mass/Vol]Or dered By: Ashlyn Gates on 05-17-2023 MCHC (RBC) [Mass/Vol] 32.1 g/dL 32-36 [facility] No Panel InformationOrdered By: Ashlyn Gates on 05-17-2023 Estimated GFR (MDRD) Amer 147 mL/min >60 [facility] Comment on above: GFR Calc Estimated GFR (MDRD) Non-Af Amer 122 mL/min >60 [facility] Comment on above: Non- GFR Calc Total Iron Binding Capacity 352 ug/dL 250-450 [facility] Platelets bldOrdered By: Renetta Gates on 05-17-2023 Platelets (Bld) [#/Vol] 327 10*3/uL 150-450 [facility] Serum or plasma albumin sarina urement (mass/volume)Ordered By: Ashlyn Gates on 05-17-2023 Albumin [Mass/Vol] 3.6 g/dL 3.2-5.0 [facility] Serum or plasma albumin/glob ulin mass ratioOrdered By: Ashlyn Gates on 05-17-2023 Albumin/Globulin [Mass ratio] 0.9 {ratio} 0.9-2.4 [facility] Serum or plasma calcium sarina urement (mass/volume)Ordered By: Ashlyn Gates on 05-17-2023 Calcium [Mass/Vol] 8.8 mg/dL 8.5-10.1 [facility] Serum or plasma cholesterol in HDL measurement (mass/volume)Ordered By: Ashlyn Gates on 05-17-2023 Cholesterol in HDL [Mass/Vol] 45 mg/dL >40 [facility] Comment on above: The drugs N-Acetylcy steine and Metamizole may falsely depress this assay. Reference Range HDL <40 mg/dL Low HDL Cholesterol HDL >or= 60 mg/dL High HDL Cholesterol Serum or plasma cholesterol in VLDL measurement (mass/volume)Ordered By: Ashlyn Gates on 05-17-2023 Cholesterol in VLDL [Mass/Vol] 17 mg/dL 5-40 [facility] Serum or plasma creatinine m easurement (mass/volume)Ordered By: Ashlyn Gates on 05-17-2023 Creatinine [Mass/Vol] 0.62 mg/dL 0.55-1.02 [facility] Comment on above: The validity of the calculated GFR & GFRAA in patients over 70 years has not been determined. Clinical correlation is essential. Serum or plasma ferritin juvenal surement (mass/volume)Ordered By: Ashlyn Gates on 05-17-2023 Ferritin [Mass/Vol] 22 ng/mL 8-252 [facility] Serum or plasma iron saturat ion measurement (mass fraction)Ordered By: Ashlyn Gates on 05-17-2023 Iron saturation [Mass fraction] 14.8 % 15.0-55.0 [facility] Serum or plasma low density lipoprotein (LDL) cholesterol measurement (mass/volume)Ordered By: Ashlyn Gates on 05-17-2023 Cholesterol in LDL [Mass/Vol] 136 mg/dL 0-130 [facility] Serum or plasma urea nitroge n measurement (mass/volume)Ordered By: Ashlyn Gates on 05-17-2023 Urea nitrogen [Mass/Vol] 10 mg/dL 7-18 [facility] Thin prep Papanicolaou smear with manual screeningOrdered By: Ashlyn Gates on 05-17-2023 Thin prep Papanicolaou smear with manual screening 20 U/L 15-37 [facility] Thin prep Papanicolaou smear with manual screening 1 5-15 [facility] Whole blood hemoglobin A1c/t otal hemoglobin ratio (mass fraction)Ordered By: Ashlyn Gates on 05-17-2023 HbA1c (Bld) [Mass fraction] 5.1 % 3.8-5.6 [facility] Comment on above: Normal < 5.7 % Predi abetic 5.7 - 6.4 % Diabetic >or= 6.5 % Please note range changes. Established Visit (Pain Medi cine)on 01-10-2023 Established Visit (Pain Medicine) Diagnoses/Problems Fibromyalgia (729.1) (M79.7) Patient Discussion/Summary I discussed with the patient the likely etiology of her symptoms, as well as potential treatment options I addressed options with her. She is basically pain-free and functioning normally. I think she can stay off medications. I advised her to continue with her home exercises and she can follow-up on an as-needed basis. Chief Complaint Patient is here for a 6 month follow up appointment. Patient states that she hasn't had much pain lately. She states she gets an intermittent pain in her upper back. But it comes and goes and lower back and leg pain and muscle tightness seems to be resolved right now. Patient rates her pain a 0/10 today. JULIO CESAR score 14. This is a 27-year-old female here for a follow-up appointment for chief complaint of multifocal pain. She reports that since her last visit her symptoms have been minimal and almost absent. She has been able to come off the sonogram and is not using any medications for pain currently. She has maintain her home exercises. She denies numbness, tingling, weakness, or loss of bladder or bowel control. She is functioning at a good level. The patient denies any additional numbness, tingling, weakness, or any loss of bladder or bowel control. The patient's past medical, social, and family history along with medications and allergies are available and were reviewed. Adult Risk Screening Living Will. Living Will: No living will on file. Healthcare POA: No healthcare proxy on file. Declaration of Mental Health Treatment: No mental health treatment on file. Domestic Violence Screen: Does not feel threatened or abused physically, emotionally or sexually. Do you feel UNSAFE? The patient feels safe in the home. Depression/Suicide Screening: She does not have a risk of suicide. She has not had thoughts of harming others. Reference Documentation See scanned note JULIO CESAR. History of Present Illness On a scale of 0 to 10, the patient rates the pain at 0. Controlled Substance: I have personally reviewed the [place] report for YEMI JC. I have considered the risks of abuse, dependence, addiction and diversion. Review of Systems 13 systems all normal except noted in HP. Active Problems Acanthosis nigricans (701.2) (L83) Acute left ankle pain (719.47) (M25.572) Acute URI (465.9) (J06.9) Benign essential hypertension (401.1) (I10) Bilateral leg edema (782.3) (R60.0) BMI 50.0-59.9, adult (V85.43) (Z68.43) Chronic low back pain (724.2,338.29) (M54.50,G89.29) Class 3 severe obesity due to excess calories with serious comorbidity and body mass index (BMI) of 50.0 to 59.9 in adult (278.01,V85.43) (E66.01,Z68.43) Contraception management (V25.9) (Z30.9) Cough, persistent (786.2) (R05.3) Decreased libido (799.81) (R68.82) Degeneration of intervertebral disc of lumbar 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) (M51.36) Depression, major, single episode, mild (296.21) (F32.0) Dyspepsia (536.8) (R10.13) Encounter for vaccination (V05.9) (Z23) Fibromyalgia (729.1) (M79.7) JESSICA (generalized anxiety disorder) (300.02) (F41.1) Glucose intolerance (impaired glucose tolerance) (790.22) (R73.02) Hypercholesterolemia (272.0) (E78.00) Low ferritin (790.6) (R79.0) Low vitamin B12 level (266.2) (E53.8) Lumbar radiculitis (724.4) (M54.16) Lumbosacral radiculitis (724.4) (M54.17) Morbid obesity (278.01) (E66.01) Muscle spasm (728.85) (M62.838) Numbness of left foot (782.0) (R20.0) Pleurisy (511.0) (R09.1) Prolapsed lumbar disc (722.10) (M51.26) Sacroiliitis (720.2) (M46.1) Second degree sunburn (692.76) (L55.1) Vaginal candidiasis (112.1) (B37.31) Past Medical History History of Pap test, as part of routine gynecological examination (V76.2) (Z01.419) [facility] Surgical History History of Appendectomy History of Colonoscopy History of Esophagogastroduodenosco py History of [place] tooth extraction Family History Family history of Allergies Family history of depression (V17.0) (Z81.8) Family history of hypertension (V17.49) (Z82.49) Family history of depression (V17.0) (Z81.8) Family history of Allergies Family history of cervical cancer (V16.49) (Z80.49) Family history of depression (V17.0) (Z81.8) Family history of emphysema (V17.6) (Z82.5) Family history of hypertension (V17.49) (Z82.49) Family history of type 2 diabetes mellitus (V18.0) (Z83.3) Social History Denies alcohol consumption (V49.89) (Z78.9) Feels safe at home Lives with family Never a smoker No advance directives (V49.89) (Z78.9) No illicit drug use Allergies diclofenac Allergy; Rash; Updated By: Haresh Blackburn; 03/26/2020 3:50:14 PM Current Meds Medication NameInstruction busPIRone HCl - 30 MG Oral TabletTAKE 1 TABLET TWICE DAILY. Citalopram Hydrobromide 40 MG Oral Tablettake 1/2 tab dailyx 2 weeks then 1 tab po daily Losartan Potassium 50 MG Oral TabletTake 1 tablet twice daily Omeprazole 20 (more content not included)... Normal [facility] Provider Note - ED v3on 09-27 Provider Note - ED v3 Provider Note: Chart Review: ED NOTES ED NOTES: Presents for evaluation of URI. Symptoms including cough, sore throat, congestion, body aches, malaise, and headache have been present for several days and refractory to OTC meds. No fever, chills, loss of taste/smell, nausea, vomiting, abdominal pain, CP, or SOB. No exacerbating factors. No known COVID 19/flu exposure. HISTORY OF PRESENTING ILLNESS YEMI is a 27 year old Female and was seen by me at 18-Oct-2022 09:30. Triage Information: Most recent Vital Sign Value Date PAST MEDICAL HISTORY ALLERGIES/INTOLERANCES: Allergy Allergen: diclofenac Type: Drug Reaction: Unknown HEALTH HISTORY: No documented data. OUTPATIENT MEDICATIONS: Home Medications Review Status for Reconciliation: Complete Med Status: Patient Currently Takes Medications Drug Name: losartan 50 mg oral tablet Instructions: null Drug Name: citalopram Instructions: null Drug Name: omeprazole 20 mg oral delayed release capsule Instructions: null Drug Name: busPIRone 30 mg oral tablet Instructions: 1 tab(s) orally 2 times a day Drug Name: ORAL CONTROL Instructions: null Drug Name: azithromycin 250 mg oral tablet Instructions: Take 2 tabs (500mg) x 1 days, then 1 tab (250mg) once daily x 4 days Drug Name: predniSONE 10 mg oral tablet Instructions: 3 tab(s) orally once a day x 5 days Drug Name: albuterol 90 mcg/inh inhalation aerosol Instructions: 2 puff(s) inhaled 2 times a day as needed for cough SIGNIFICANT EVENTS: Past Medical History Description:COVID ( recovered) POSTAL CARRIER: Is : no Is : no REVIEW OF SYSTEMS All other systems reviewed and are negative REVIEW OF SYSTEMS: Comments See HPI PHYSICAL EXAM CONSTITUTIONAL: Mildly ill appearing, well nourished, awake, alert, oriented to person, place, time/situation and in no apparent distress. HENMT: Airway patent, ears with clear tympanic membranes bilaterally. Nasal mucosa clear. Mouth with normal mucosa. Throat has no vesicles, no oropharyngeal exudates and uvula is midline. Face with no lymph node enlargement. EYES: Clear bilaterally, pupils equal, round and reactive to light. CARDIOVASCULAR: Normal rate, regular rhythm. Heart sounds S1, S2. No murmurs, rubs or gallops. PMI non-displaced. RESPIRATORY: Breath sounds clear and equal bilaterally. NEUROLOGICAL: Alert and oriented, no focal deficits, no motor or sensory deficits. SKIN: Skin normal color for race, warm, dry and intact. No evidence of trauma. PSYCHIATRIC: Alert and oriented to person, place, time/situation. normal mood and affect. No apparent risk to self or others. CRITICAL CARE VITAL SIGNS: T PRBP SpO2O2(LPM) %FiO2 Method 18-Oct-2022 09:18:[id number] 98 MDM MDM/ED COURSE: Discussed Findings with: patient Data Reviewed: vital signs Treatment Plan: Rx Zithromax, prednisone and albuterol inhaler. Encouraged pt to continue otc cold remedies PRN, push by mouth fluids and rest. Patient's clinical presentation is otherwise unremarkable at this time. Patient is discharged with instructions to follow-up with primary care or seek emergency medical attention for worsening symptoms or any new concerns. DISPOSITION Diagnosis/Annotation: ED Dx Name:Acute bronchitis Code:J20.9 Disposition: discharged Type: home CONSULT CRITICAL CARE TIME Is this a critically ill patient: no Electronic Signatures: Kb Meyer (CASKET [employer]ER[employer]METAL WEATHER STRIPPER) (Signed 18-Oct-2022 09:40) Authored: ED Notes, HPI, PMH, ROS, PE, Results/Vital Signs, MDM/ED Course, Clinical Impression, Attestation, Chart Review, Scores Last Updated: 18-Oct-2022 09:40 by Kb Meyer (CASKET LINER-METAL WEATHER STRIPPER) [facility] Atypical perinuclear antineu trophil cytoplasmic antibodies measurementOrdered By: Mark Schroeder on 09-16-2022 Neutrophil cytoplasmic Ab.perinuclear.atypical IF (S) [Titer] <1:20 titer Neg:<1:20 [facility] Comment on above: The atypical pANCA p attern has been observed in asignificant percentage of patients with ulcerative colitis,primary sclerosing cholangitis and autoimmune hepatitis.Performed at: - [facility] [id number] Director: Zeeshan Carlton PhD, Phone: [phone] at: - [facility] [id number] Director: Luz Ponce MD, Phone: [phone] Basophil percentageOrdered B y: Mark Friend on 09-16-2022 Basophil percentage < 0.2 AI 0.0-0.9 [facility] LDH [Catalytic activity/Vol] 178 U/L 84-246 [facility] Chocolate RASTOrdered By: Ra ladarius Schroeder on 09-16-2022 Chocolate IgE Qn (S) <0.10 kU/L Class 0 [facility] Comment on above: Performed at: [address] [id number] Director: Zeeshan Carlton PhD, Phone: [phone] at: - [facility] [id number] Director: Luz Ponce MD, Phone: [phone] EP PanelOrdered By: Mark Schroeder on 09-16-2022 Gastrointestinal pathogens panel PEARL+probe (Stl) [facility] Erythrocyte sedimentation ra teOrdered By: Mark Schroeder on 09-16-2022 ESR (Bld) [Velocity] 31 mm/h 0-30 [facility] - Miscellaneous t estsOrdered By: Mark Schroeder on 09-16-2022 Service comment (Unsp spec) [Interp] Comment . [facility] Comment on above: Levels of Specific I gE Class Description of Class ----- < 0.10 0 Negative 0.10 - 0.31 0/I Equivocal/Low 0.32 - 0.55 I Low 0.56 - 1.40 II Moderate 1.41 - 3.90 III High 3.91 - 19.00 IV Very High 19.01 - 100.00 V Very High >100.00 Very High No Panel InformationOrdered By: Mark Schroeder on 09-16-2022 Centromere B Antibody <0.2 AI 0.0-0.9 [facility] Endomysial IgA Antibody Negative Negative [facility] Immunoglobulin E 27 IU/mL 6-495 [facility] SENIOR FIELD ENGINEER Antibody <0.2 AI 0.0-0.9 [facility] Seafood Group Allergens (RAST) Negative . [facility] Comment on above: Allergens in this mi x are: Blue mussel Fish [place] Shrimp Tuna Serum DNA double strand anti body assay (units/volume)Ordered By: Mark Schroeder on 09-16-2022 DNA double strand Ab Qn (S) [IU]/mL 0-9 [facility] Comment on above: Negative <5 Equivoca l 5 - 9 Positive >9 Serum Ashley-1 antibody assay (u nits/volume)Ordered By: Mark Schroeder on 09-16-2022 Ashley-1 extractable nuclear Ab Qn (S) <0.2 AI 0.0-0.9 [facility] Serum Scl-70 extractable nuc lear antibody assay (units/volume)Ordered By: Mark Schroeder on 09-16-2022 SCL-70 extractable nuclear Ab Qn (S) <0.2 AI 0.0-0.9 [facility] Serum Hilario extractable nucl ear antibody detectionOrdered By: Mark Schroeder on 09-16-2022 Hilario extractable nuclear Ab Ql (S) <0.2 AI 0.0-0.9 [facility] Serum beef IgE antibody assa y (units/volume)Ordered By: Mark Schroeder on 09-16-2022 Beef IgE Qn (S) <0.10 kU/L Class 0 [facility] Serum classic neutrophil cyt oplasmic antibody assay (units/volume)Ordered By: Mark Schroeder on 09-16-2022 Neutrophil cytoplasmic Ab.classic Qn (S) <1:20 titer Neg:<1:20 [facility] Serum corn IgE antibody assa y (units/volume)Ordered By: Mark Schroeder on 09-16-2022 [place] IgE Qn (S) <0.10 kU/L Class 0 [facility] Serum cow milk IgE antibody assay (units/volume)Ordered By: Mark Schroeder on 09-16-2022 Cow milk IgE Qn (S) <0.10 kU/L Class 0 [facility] Serum or plasma C reactive p rotein measurement (mass/volume)Ordered By: Mark Schroeder on 09-16-2022 CRP [Mass/Vol] 29.80 mg/L 0.0-3.0 [facility] Comment on above: C-Reactive Protein ( CRP) provides useful information for thediagnosis, therapy and monitoring of inflammatory processesand associated diseases. For the evaluation of Relative Riskfor Cardiovascular Disease, a High Sensitivity CRP (HSCRP)should be ordered. Serum or plasma IgA measurem ent (mass/volume)Ordered By: Mark Schroeder on 09-16-2022 IgA [Mass/Vol] 142 mg/dL 87-352 [facility] Serum or plasma IgG measurem ent (mass/volume)Ordered By: Markvamsi Schroeder on 09-16-2022 IgG [Mass/Vol] 1007 mg/dL [phone] [facility] Serum or plasma IgM measurem ent (mass/volume)Ordered By: Markvamsi Schroeder on 09-16-2022 IgM [Mass/Vol] 87 mg/dL 26-217 [facility] Serum peanut IgE antibody as say (units/volume)Ordered By: Mark Schroeder on 09-16-2022 Peanut IgE Qn (S) <0.10 kU/L Class 0 [facility] Serum perinuclear neutrophil cytoplasmic antibody titer by immunofluorescenceOrdered By: Mark Schroeder on 09-16-2022 Neutrophil cytoplasmic Ab.perinuclear IF (S) [Titer] <1:20 titer Neg:<1:20 [facility] Comment on above: The presence of posi tive fluorescence exhibiting P-ANCA orC-ANCA patterns alone is not specific for the diagnosis ofWegener's Granulomatosis (WG) or microscopic polyangiitis.Decisions about treatment should not be based solely onANCA IFA results. The [employer] Consensusrecommends follow up testing of positive sera with both WV-3 and MPO-ANCA enzyme immunoassays. As many as 5% serumsamples are positive only by EIA. Ref. AM J Clin [id number];111:507-513. Serum pork IgE antibody assa y (units/volume)Ordered By: Mark Schroeder on 09-16-2022 Pork IgE Qn (S) <0.10 kU/L Class 0 [facility] Serum soybean IgE antibody a ssay (units/volume)Ordered By: Mark Schroeder on 09-16-2022 Soybean IgE Qn (S) <0.10 kU/L Class 0 [facility] Serum tissue transglutaminas e IgA antibody assay (units/volume)Ordered By: Mark Schroeder on 09-16-2022 tTG IgA Qn (S) <2 U/mL 0-3 [facility] Comment on above: Negative 0 - 3 Weak Positive 4 - 10 Positive >10 Tissue Transglutaminase (tTG) has been identified as the endomysial antigen. Studies have demonstr- ated that endomysial IgA antibodies have over 99% specificity for gluten sensitive enteropathy. Serum wheat IgE antibody ass ay (units/volume)Ordered By: Mark Schroeder on 09-16-2022 Wheat IgE Qn (S) <0.10 kU/L Class 0 [facility] Serum whole egg IgE antibody assay (units/volume)Ordered By: Mark Schroeder on 09-16-2022 Whole Egg IgE Qn (S) <0.10 kU/L Class 0 [facility] Stool lactoferrin detection by immunoassayOrdered By: Mark Schroeder on 09-16-2022 Lactoferrin IA Ql (Stl) [facility] Absolute lymphocyte countOrd ered By: Dr. Hernandez on 09-03-2022 Lymphocytes Auto (Unsp spec) [#/Vol] 2.15 10*3/uL 0.83-4.51 [facility] Basophil percentageOrdered B y: Dr. Hernandez on 09-03-2022 Basophils/100 WBC (Bld) 0.5 % 0-1 [facility] Bilirubin [Mass/Vol] 0.30 mg/dL 0.20-1.00 [facility] Comment on above: For patients on eltr ombopag therapy, use of Dimension [place] TBIL is not recommended. Chloride [Moles/Vol] 110 mmol/L 98-107 [facility] Eosinophils/100 WBC (Bld) 3.8 % 0-5 [facility] Glucose [Mass/Vol] 87 mg/dL 74-106 [facility] Neutrophils (Bld) [#/Vol] 3.1 10*3/uL 2.0-7.7 [facility] Neutrophils/100 WBC (Bld) 51.0 % 47-70 [facility] Potassium [Moles/Vol] 3.7 mmol/L 3.5-5.1 [facility] Comment on above: Slight Hemolysis, Re sult may be falsely increased. Protein [Mass/Vol] 6.8 g/dL 6.4-8.2 [facility] Sodium [Moles/Vol] 140 mmol/L 136-145 [facility] WBC (Bld) [#/Vol] 6.0 10*3/uL 4.4-11.0 [facility] Beta hCG serum qualOrdered B y: Dr. Hernandez on 09-03-2022 Beta HCG ( test) Ql Negative [facility] Blood erythrocytes count (nu mber/volume)Ordered By: Dr. Hernandez on 09-03-2022 RBC (Bld) [#/Vol] 4.61 10*6/uL 4.2-5.4 [facility] Blood hemoglobin measurement (mass/volume)Ordered By: Dr. Hernandez on 09-03-2022 Hemoglobin (Bld) [Mass/Vol] 12.4 g/dL 12.0-15.0 [facility] Blood lymphocytes/100 leukoc ytesOrdered By: Dr. Hernandez on 09-03-2022 Lymphocytes/100 WBC (Bld) 35.7 % 19-41 [facility] Blood monocytes/100 leukocyt esOrdered By: Dr. Hernandez on 09-03-2022 Monocytes/100 WBC (Bld) 8.8 % 0-[address] [facility] Blood platelet mean volumeOr dered By: Dr. Hernandez on 09-03-2022 Platelet mean volume (Bld) [Entitic vol] 10.9 fL 6.2-12.0 [facility] Determination of erythrocyte mean corpuscular volume (MCV)Ordered By: Dr. Hernandez on 09-03-2022 MCV (RBC) [Entitic vol] 80.9 fL 81-[address] [facility] Direct bilirubinOrdered By: Dr. Hernandez on 09-03-2022 Bilirubin.direct [Mass/Vol] 0.05 mg/dL 0.00-0.30 [facility] Hematocrit Auto (Bld) [Volum e fraction]Ordered By: Dr. Hernandez on 09-03-2022 Hematocrit (Bld) [Volume fraction] 37.3 % 37-47 [facility] Laboratory - Chemistry and C hemistry - challengeOrdered By: Dr. Hernandez on 09-03-2022 ALP [Catalytic activity/Vol] 83 U/L 45-117 [facility] ALT [Catalytic activity/Vol] 56 U/L 13-56 [facility] CO2 [Moles/Vol] 24.0 mmol/L 21.0-32.0 [facility] Globulin (S) [Mass/Vol] 3.9 g/dL 2.2-4.[address] [facility] Lipase [Catalytic activity/Vol] 51 U/L 73-393 [facility] Urea nitrogen/Creatinine [Mass ratio] 17.1 mg/mg 10-20 [facility] Laboratory - Hematology and Cell countsOrdered By: Dr. Hernandez on 09-03-2022 Erythrocyte distribution width (RBC) [Entitic vol] 39.2 fL 35.1-43.9 [facility] Erythrocyte distribution width (RBC) [Ratio] 13.4 % 11.6-14.6 [facility] Immature granulocytes/100 WBC (Bld) 0.200 % 0.0-0.9 [facility] Comment on above: IG% - Immature Granu locytes (promyelocytes, myelocytes and metamyelocytes) > 1% indicates that a LEFT SHIFT is Present. MCH (RBC) [Entitic mass] 26.9 pg 27.0-32.0 [facility] Nucleated RBC/100 WBC (Bld) [Ratio] 0 % 0-5 [facility] MCHC Auto (RBC) [Mass/Vol]Or dered By: Dr. Hernandez on 09-03-2022 MCHC (RBC) [Mass/Vol] 33.2 g/dL 32-36 [facility] No Panel InformationOrdered By: Dr. Hernandez on 09-03-2022 Estimated Creatinine Clearance Calc 119.86 ml/min [facility] Estimated GFR (MDRD) Amer 143 mL/min >60 [facility] Comment on above: GFR Calc Estimated GFR (MDRD) Non-Af Amer 118 mL/min >60 [facility] Comment on above: Non- GFR Calc Platelets bldOrdered By: Dr. Hernandez on 09-03-2022 Platelets (Bld) [#/Vol] 272 10*3/uL 150-450 [facility] Serum or plasma albumin sarina urement (mass/volume)Ordered By: Dr. Hernandez on 09-03-2022 Albumin [Mass/Vol] 2.9 g/dL 3.2-5.0 [facility] Serum or plasma calcium sarina urement (mass/volume)Ordered By: Dr. Hernandez on 09-03-2022 Calcium [Mass/Vol] 8.3 mg/dL 8.5-10.1 [facility] Serum or plasma creatinine m easurement (mass/volume)Ordered By: Dr. Hernandez on 09-03-2022 Creatinine [Mass/Vol] 0.64 mg/dL 0.55-1.02 [facility] Comment on above: The validity of the calculated GFR & GFRAA in patients over 70 years has not been determined. Clinical correlation is essential. Serum or plasma urea nitroge n measurement (mass/volume)Ordered By: Dr. Hernandez on 09-03-2022 Urea nitrogen [Mass/Vol] 11 mg/dL 7-18 [facility] Thin prep Papanicolaou smear with manual screeningOrdered By: Dr. Hernandez on 09-03-2022 Thin prep Papanicolaou smear with manual screening 38 U/L 15- [facility] Comment on above: Slight Hemolysis, Re sult may be falsely increased. Thin prep Papanicolaou smear with manual screening 6 5-15 [facility] Established Visit (Pain Medi cine)on 07-18-2022 Established Visit (Pain Medicine) Diagnoses/Problems Fibromyalgia (729.1) (M79.7) Orders Fibromyalgia Start: Zonisamide 25 MG Oral Capsule (Zonegran); start 1 cap PO QHS, increase by 1 cap Qwk till dose is 4 caps QHS Patient Discussion/Summary I discussed with the patient the likely etiology of her symptoms, as well as potential treatment options I addressed options with her. Since she is no longer on Topamax I will have her try Zonegran to be titrated to 100 mg at bedtime. I will also write her for a topical medication from the compounding pharmacy. With regard to her activity I encouraged her to continue with her exercise program and efforts toward weight loss. I will see her for follow-up in 6 months or sooner if needed. Chief Complaint LOWER BACK PAIN, LEFT SIDE DOWN THE LATERAL SIDE OF LEFT THIGH TO HER KNEE, SHE GETS THE BURNING,STING,SHARP PAIN WHEN SHE IS EITHER SITTING OR STANDING FOR LONG PERIODS OF TIME, SHE HASN'T HAD TO TAKE HER GABAPENTIN OR TIZANIDINE MUCH LATELY, SHE DOES STAY ACTIVE GOING TO GYM A COUPLE TIMES A WEEK DOING EXERCISES/STRETCHES, SHE FEELS HER MUSCLES ARE JUST SO TIGHT AND KNOBBY, SHE USES ROLL ON BIO FREEZE OR BENGAY FOR RELIEF, SCORE 4/10 This is a 27-year-old female here for a follow-up appointment for chief complaint of low back and leg pain. She reports that since her last visit her symptoms have been persistent. She states the lower back and leg do not give her a whole lot of problem. She still has some numbness in the left leg but its not bad. She denies any weakness. Her biggest issue is diffuse pain and tightness in the muscles. She states that that is what impacts her function the most. She has rarely if ever using the gabapentin or tizanidine. Those medications do not seem to do much for this particular issue. She denies new neurologic symptoms or issues with bladder or bowel control. The patient's past medical, social, and family history along with medications and allergies are available and were reviewed. Adult Risk Screening Living Will. Living Will: No living will on file. Healthcare POA: No healthcare proxy on file. Domestic Violence Screen: Does not feel threatened or abused physically, emotionally or sexually. Do you feel UNSAFE? The patient feels safe in the home. Depression/Suicide Screening: During the past 2 weeks, the patient has not felt down, depressed or hopeless. During the past 2 weeks, the patient has not felt little interest or pleasure in doing things. She does not have a risk of suicide. She has not had thoughts of harming others. History of Present Illness On a scale of 0 to 10, the patient rates the pain at 4. Pain Location: Low Back Pain. Pain Quality: Burning and Sharp. Pain Radiation: LATERAL SIDE OF LEFT LEG. Sensory/ Motor: Stinging. Timing/Duration: Intermittent and > 12 weeks duration. Controlled Substance: I have personally reviewed the [place] report for YEMI JC. I have considered the risks of abuse, dependence, addiction and diversion. Exacerbating Factors: sitting and standing. Alleviating Factors: Exercise, Medications, Repositioning. 24 Hour Behavior: Symptoms are the same in the am. DEPENDING ON ACTIVITY. Symptoms are the same as the day progresses. DEPENDING ON ACTIVITY. Symptoms are the same in the pm. DEPENDING ON ACTIVITY. Symptoms are the same when lying down. DEPENDING ON ACTIVITY. Review of Systems 13 systems all normal except noted in HP. Active Problems Acanthosis nigricans (701.2) (L83) Acute left ankle pain (719.47) (M25.572) Acute URI (465.9) (J06.9) Benign essential hypertension (401.1) (I10) Bilateral leg edema (782.3) (R60.0) BMI 50.0-59.9, adult (V85.43) (Z68.43) Chronic low back pain (724.2,338.29) (M54.50,G89.29) Class 3 severe obesity due to excess calories with serious comorbidity and body mass index (BMI) of 50.0 to 59.9 in adult (278.01,V85.43) (E66.01,Z68.43) Contraception management (V25.9) (Z30.9) Cough, persistent (786.2) (R05.3) Decreased libido (799.81) (R68.82) Degeneration of intervertebral disc of lumbar 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) (M51.36) Depression, major, single episode, mild (296.21) (F32.0) Dyspepsia (536.8) (R10.13) Encounter for vaccination (V05.9) (Z23) Fibromyalgia (729.1) (M79.7) JESSICA (generalized anxiety disorder) (300.02) (F41.1) Glucose intolerance (impaired glucose tolerance) (790.22) (R73.02) Hypercholesterolemia (272.0) (E78.00) Low ferritin (790.6) (R79.0) Low vitamin B12 level (266.2) (E53.8) Lumbar radiculitis (724.4) (M54.16) Lumbosacral radiculitis (724.4) (M54.17) Morbid obesity (278.01) (E66.01) Muscle spasm (728.85) (M62.838) Numbness of left foot (782.0) (R20.0) Pleurisy (511.0) (R09.1) Prolapsed lumbar disc (722.10) (M51.26) Sacroiliitis (720.2) (M46.1) Second degree sunburn (692.76) (L55.1) Vaginal candidiasis (112.1) (B37.31) Past Medical History History of Pap test, as part of routine gynecological examination (V76.2) (Z01.419) WOMENS CARE (more content not included)... Normal [facility] - Microbiology an d Antimicrobial susceptibilityon 05-18-2022 SARS-CoV-2 (COVID-19) RNA PEARL+probe Ql (Unsp spec) Not detected [facility] No Panel Informationon 05-18 POC Nasal Swab Influenza A,B Detected [facility] POC Nasal Swab RSV Not detected [facility] Office Visit (Internal Medic ine)on 05-03-2022 Follow-up visit Diagnoses/Problems Assessed Benign essential hypertension (401.1) (I10) Low vitamin B12 level (266.2) (E53.8) Class 3 severe obesity due to excess calories with serious comorbidity and body mass index (BMI) of 50.0 to 59.9 in adult (278.01,V85.43) (E66.01,Z68.43) Fibromyalgia (729.1) (M79.7) Depression, major, single episode, mild (296.21) (F32.0) JESSICA (generalized anxiety disorder) (300.02) (F41.1) Glucose intolerance (impaired glucose tolerance) (790.22) (R73.02) Hypercholesterolemia (272.0) (E78.00) Low ferritin (790.6) (R79.0) Orders Dyspepsia Renew: Omeprazole 20 MG Oral Capsule Delayed Release; TAKE 1 CAPSULE TWICE DAILY Rx By: Ashlyn Gates; Dispense: 30 Days ; #:60 Capsule; Refill: 5;For: Dyspepsia; INES = N; Sent To: [facility] JESSICA (generalized anxiety disorder) Renew: busPIRone HCl - 30 MG Oral Tablet; TAKE 1 TABLET TWICE DAILY Rx By: Ashlyn Gates; Dispense: 30 Days ; #:60 Tablet; Refill: 5;For: JESSICA (generalized anxiety disorder); INES = N; Sent To: [facility] Renew: Citalopram Hydrobromide 40 MG Oral Tablet (CeleXA); take 1/2 tab dailyx 2 weeks then 1 tab po daily Rx By: Ashlyn Gates; Dispense: 0 Days ; #:30 Tablet; Refill: 5;For: JESSICA (generalized anxiety disorder); INES = N; Sent To: [facility] Low vitamin B12 level Administered: Cyanocobalamin 1000 MCG/ML Injection Solution Rx By: Ashlyn Gates;For: Low vitamin B12 level; Dose of 1 ML; Intramuscular; INES = N; Administered by: Yumiko Ayala PET CARE TECHNICIAN: 05/03/2022 3:12:00 PM; Last Updated By: Yumiko Ayala; 05/03/2022 3:13:02 PM Patient Discussion/Summary f/u in 6 mo with labs at [facility] fasting CBC - glucose intolerance CMP hgba1c B12 - low vit B 12 lipid - hpyerchol TSH + reflux Provider Impressions 1.Complexity: More than 1 stable chronic condition addressed 2.Data: Tests interpreted and or ordered, took independent history or records reviewed 3.Risks: Moderate Risk due to nature of medical conditions /comorbidity or meds ordered or surgical procedure referral Reviewed notes on file Reviewed labs and testing Patient to follow diet low in cholesterol, fat, and sodium. Patient is advised to increase Exercise. Patient is recommended to lose weight. Reviewed Meds and discussed common side effects Continue as directed mood - cont on meds HTN -stable on meds hyperchol - work on diet and ex GERD - stable on PPI pt to work on approp diet morbid obese - cont with diet and specialists B12 -injection in office cont on daily OTC supplement Return to Clinic sooner if needed. Patient denies further questions/concerns at this time Chief Complaint PT HERE TODAY FOR 6 MO F/U LABS. PT HAS NO CONCERNS TODAY History of Present IllnessPatient presents today for.... 1 to review labs 2 Med check HTN- on meds - B12 - on injection on occasion and OTC supplement mood - stable on buspar and celexa --effexor - didn't work --prozac - didn't work GERD - improved back on PPI pain - stable - following with dr keenan wt loss - following with specialists and has been on/off adipex 3 Preventative testing PAP - [facility] - last exam was september mammo - suggest age 40 colonoscopy - suggest age 45-50 DEXA - suggest age 50-55 Review of Systems Review of Systems Constitutional: No fever, No chills, No weakness, No fatigue Eye: No blurring, No visual disturbances Ear/Nose/Mouth/Throat: No ear pain, No ST, No nasal congestion Respiratory: No cough, NO SOB Cardiovascular: No chest pain, No palpitations, No peripheral edema Gastrointestinal: No nausea, No vomiting, No diarrhea, No constipation GERD- epigastric pain Genitourinary: No dysuria Hematology/Lymphatics: No swollen lymph glands Endocrine: No cold intolerance, No heat intolerance Immunologic: No recurrent fevers, No recurrent infections Musculoskeletal: chronic pain - back pain - following with pain clinic - dr keenan Integumentary: No rash, no itching Neurologic: Alert and Oriented x 4: No headache Psychiatric: anxiety with depression - stable on meds Active Problems Problems Acanthosis nigricans (701.2) (L83) Acute left ankle pain (719.47) (M25.572) Acute URI (465.9) (J06.9) Benign essential hypertension (401.1) (I10) Bilateral leg edema (782.3) (R60.0) BMI 50.0-59.9, adult (V85.43) (Z68.43) Chronic low back pain (724.2,338.29) (M54.50,G89.29) Class 3 severe obesity due to excess calories with serious comorbidity and body mass index (BMI) of 50.0 to 59.9 in adult (278.01,V85.43) (E66.01,Z68.43) Contraception management (V25.9) (Z30.9) Cough, persistent (786.2) (R05.3) Decreased libido (799.81) (R68.82) Degeneration of intervertebral disc of lumbar 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) (M51.36) Depression, major, single episode, mild (296.21) (F32.0) Dyspepsia (536.8) (R10.13) Encounter for vaccination (V05.9) (Z23) Fibromyalgia (729.1) (M79.7) JESSICA (generalized an (more content not included)... Normal [employer] Tobacco Screening.on 12-06-2 022 Fall risk assessment a) No falls within the last year [facility] Work Phone: Tobacco use status CP b) No M [facility] Work Phone: Absolute lymphocyte counton 05-02-2022 Lymphocytes Auto (Unsp spec) [#/Vol] 3.18 10*3/uL 0.83-4.51 [facility] Work Phone: Basophil percentageon 2021 Basophils/100 WBC (Bld) 0.9 % 0-[address] [facility] Work Phone: Bilirubin [Mass/Vol] 0.30 mg/dL 0.20-1.00 [facility] Work Phone: Comment on above: For patients on eltr ombopag therapy, use of Dimension [place] TBIL is not recommended. Chloride [Moles/Vol] 104 mmol/L 98-107 [facility] Work Phone: Cholesterol [Mass/Vol] 235 mg/dL <200 [facility] Work Phone: Comment on above: <200 mg/dL Desirable 200-240 mg/dL Borderline >240 mg/dL High Risk Eosinophils/100 WBC (Bld) 2.7 % 0-5 [facility] Work Phone: Glucose [Mass/Vol] 98 mg/dL 74-106 [facility] Work Phone: Neutrophils (Bld) [#/Vol] 5.4 10*3/uL 2.0-7.7 [facility] Work Phone: Neutrophils/100 WBC (Bld) 57.5 % 47-70 [facility] Work Phone: Potassium [Moles/Vol] 3.8 mmol/L 3.5-5.1 [facility] Work Phone: Protein [Mass/Vol] 7.0 g/dL 6.4-8.2 [facility] Work Phone: [phone] Sodium [Moles/Vol] 138 mmol/L 136-145 [facility] Work Phone: Triglyceride [Mass/Vol] 169 mg/dL <[address] [facility] Work Phone: Comment on above: The drugs N-Acetylcy steine and Metamizole may falsely depress this assay.Serum Triglycerides Reference Interval Normal <150 mg/dL Borderline high 150 - 199 mg/dL High 200 - 499 mg/dL Very High > or = 500 mg/dL WBC (Bld) [#/Vol] 9.3 10*3/uL 4.4-11.0 [facility] Work Phone: Blood erythrocytes count (nu mber/volume)on 05-02-2022 RBC (Bld) [#/Vol] 4.71 10*6/uL 4.2-5.4 [facility] Work Phone: Blood hemoglobin measurement (mass/volume)on 05-02-2022 Hemoglobin (Bld) [Mass/Vol] 12.5 g/dL 12.0-15.0 [facility] Work Phone: Blood lymphocytes/100 leukoc yteson 05-02-2022 Lymphocytes/100 WBC (Bld) 34.0 % 19-41 [facility] Work Phone: Blood monocytes/100 leukocyt eson 05-02-2022 Monocytes/100 WBC (Bld) 4.7 % 0-[address] [facility] Work Phone: Blood platelet mean volumeon 05-02-2022 Platelet mean volume (Bld) [Entitic vol] 11.4 fL 6.2-12.0 [facility] Work Phone: Determination of erythrocyte mean corpuscular volume (MCV)on 05-02-2022 MCV (RBC) [Entitic vol] 80.7 fL 81-[address] [facility] Work Phone: Hematocrit Auto (Bld) [Volum e fraction]on 05-02-2022 Hematocrit (Bld) [Volume fraction] 38.0 % 37-47 [facility] Work Phone: Iron measurement (mass/mass) on 05-02-2022 Iron (Unsp spec) [Mass/Mass] 83 ug/dL 50-170 [facility] Work Phone: Laboratory - Chemistry and C hemistry - challengeon 05-02-2022 ALP [Catalytic activity/Vol] 74 U/L 45-117 [facility] Work Phone: ALT [Catalytic activity/Vol] 21 U/L 13-56 [facility] Work Phone: CO2 [Moles/Vol] 26.0 mmol/L 21.0-32.0 [facility] Work Phone: Cobalamin (Vitamin B12) [Mass/Vol] 454 pg/mL 211-911 [facility] Work Phone: Globulin (S) [Mass/Vol] 4.2 g/dL 2.2-4.[address] [facility] Work Phone: Urea nitrogen/Creatinine [Mass ratio] 23.1 mg/mg 10-20 [facility] Work Phone: Laboratory - Hematology and Cell countson 05-02-2022 Erythrocyte distribution width (RBC) [Entitic vol] 39.4 fL 35.1-43.9 [facility] Work Phone: Erythrocyte distribution width (RBC) [Ratio] 13.5 % 11.6-14.6 [facility] Work Phone: Immature granulocytes/100 WBC (Bld) 0.200 % 0.0-0.9 [facility] Work Phone: Comment on above: IG% - Immature Granu locytes (promyelocytes, myelocytes and metamyelocytes) > 1% indicates that a LEFT SHIFT is Present. MCH (RBC) [Entitic mass] 26.5 pg 27.0-32.0 [facility] Work Phone: Nucleated RBC/100 WBC (Bld) [Ratio] 0 % 0-5 [facility] Work Phone: MCHC Auto (RBC) [Mass/Vol]on 05-02-2022 MCHC (RBC) [Mass/Vol] 32.9 g/dL 32-36 [facility] Work Phone: No Panel Informationon 05-02 Estimated GFR (MDRD) Amer 167 mL/min >60 [facility] Work Phone: Comment on above: GFR Calc Estimated GFR (MDRD) Non-Af Amer 138 mL/min >60 [facility] Work Phone: Comment on above: Non- GFR Calc Total Iron Binding Capacity 388 ug/dL 250-450 [facility] Work Phone: Platelets bldon 05-02-2022 Platelets (Bld) [#/Vol] 347 10*3/uL 150-450 [facility] Work Phone: Serum or plasma albumin sarina urement (mass/volume)on 05-02-2022 Albumin [Mass/Vol] 2.8 g/dL 3.2-5.0 [facility] Work Phone: Serum or plasma albumin/glob ulin mass ratioon 05-02-2022 Albumin/Globulin [Mass ratio] 0.7 {ratio} 0.9-2.4 [facility] Work Phone: Serum or plasma calcium sarina urement (mass/volume)on 05-02-2022 Calcium [Mass/Vol] 8.4 mg/dL 8.5-10.1 [facility] Work Phone: Serum or plasma cholesterol in HDL measurement (mass/volume)on 05-02-2022 Cholesterol in HDL [Mass/Vol] 59 mg/dL >40 [facility] Work Phone: Comment on above: The drugs N-Acetylcy steine and Metamizole may falsely depress this assay. Reference Range HDL <40 mg/dL Low HDL Cholesterol HDL >or= 60 mg/dL High HDL Cholesterol Serum or plasma cholesterol in VLDL measurement (mass/volume)on 05-02-2022 Cholesterol in VLDL [Mass/Vol] 34 mg/dL 5-40 [facility] Work Phone: Serum or plasma creatinine m easurement (mass/volume)on 05-02-2022 Creatinine [Mass/Vol] 0.56 mg/dL 0.55-1.02 [facility] Work Phone: Comment on above: The validity of the calculated GFR & GFRAA in patients over 70 years has not been determined. Clinical correlation is essential. Serum or plasma ferritin juvenal surement (mass/volume)on 05-02-2022 Ferritin [Mass/Vol] 31 ng/mL 8-252 [facility] Work Phone: Serum or plasma low density lipoprotein (LDL) cholesterol measurement (mass/volume)on 05-02-2022 Cholesterol in LDL [Mass/Vol] 142 mg/dL 0-130 [facility] Work Phone: Serum or plasma urea nitroge n measurement (mass/volume)on 05-02-2022 Urea nitrogen [Mass/Vol] 13 mg/dL 7-18 [facility] Work Phone: Thin prep Papanicolaou smear with manual screeningon 05-02-2022 Thin prep Papanicolaou smear with manual screening 8 U/L 15-37 [facility] Work Phone: Thin prep Papanicolaou smear with manual screening 8 5-15 [facility] Work Phone: GROUP A STREP, PCRon 022 S. pyogenes Ag Ql (Throat) Not detected See Below [facility] Work Phone: Comment on above: SOURCE: ThroatRefere nce Range: Not Detected This test was performed utilizing an FDA-cleared rapid nucleic acid amplification by PCR to qualitatively detect Group A Streptococci from throat swab specimens without the need for culture confirmation of negative results. GROUP A STREP,PCRon 04-11-20 22 GROUP A STREP,PCR Not detected Normal Not Detected [facility] Comment on above: Result Comment: This test was performed utilizing an FDA-cleared rapid nucleic acid amplification by PCR to qualitatively detect Group A Streptococci from throat swab specimens without the need for culture confirmation of negative results. Performed By: #### G APC1 #### [place] [address] Lab Specimen Source Throat Normal [facility] Comment on above: Performed By: #### G APC1 #### [id number] [place] [address] Provider Note - ED v3on 03-29 Provider Note - ED v3 Provider Note: Chart Review ED NOTES ED NOTES: Presents for evaluation of URI. Symptoms including sore throat, chest congestion and fatigue that have been present for the past day and refractory to OTC meds. No fever, chills, cough, headache, body aches, nasal congestion, loss of taste/smell, nausea, vomiting, abdominal pain, CP, or SOB. No exacerbating factors. No known COVID 19/flu exposure. HISTORY OF PRESENTING ILLNESS YEMI is a 27 year old Female and was seen by me at 11-Apr-2022 11:44. Triage Information: Most recent Vital Sign Value Date PAST MEDICAL HISTORY ALLERGIES/INTOLERANCES: Allergy Allergen: diclofenac Type: Drug Reaction: Unknown HEALTH HISTORY: No documented data. OUTPATIENT MEDICATIONS: Home Medications Review Status for Reconciliation: Complete Med Status: Patient Currently Takes Medications Drug Name: losartan 50 mg oral tablet Instructions: null Drug Name: citalopram Instructions: null Drug Name: omeprazole 20 mg oral delayed release capsule Instructions: null Drug Name: busPIRone 30 mg oral tablet Instructions: 1 tab(s) orally 2 times a day Drug Name: azithromycin 250 mg oral tablet Instructions: Take 2 tabs (500mg) x 1 days, then 1 tab (250mg) once daily x 4 days Drug Name: albuterol 90 mcg/inh inhalation aerosol Instructions: 2 puff(s) inhaled 2 times a day as needed for cough SIGNIFICANT EVENTS: Past Medical History Description:COVID ( recovered) POSTAL CARRIER: Is : no Is : no REVIEW OF SYSTEMS All other systems reviewed and are negative REVIEW OF SYSTEMS: Comments See HPI PHYSICAL EXAM CONSTITUTIONAL: Well appearing, well nourished, awake, alert, oriented to person, place, time/situation and in no apparent distress. HENMT: Airway patent, ears with clear tympanic membranes bilaterally. Nasal mucosa clear. Mouth with normal mucosa. Throat has posterior OP erythema, 1+ tonsillar edema, oropharyngeal exudates bilaterally and uvula is midline. Face with anterior cervical lymphadenopathy. EYES: Clear bilaterally, pupils equal, round and reactive to light. CARDIOVASCULAR: Normal rate, regular rhythm. Heart sounds S1, S2. No murmurs, rubs or gallops. PMI non-displaced. RESPIRATORY: Breath sounds clear and equal bilaterally. NEUROLOGICAL: Alert and oriented, no focal deficits, no motor or sensory deficits. SKIN: Skin normal color for race, warm, dry and intact. No evidence of trauma. PSYCHIATRIC: Alert and oriented to person, place, time/situation. normal mood and affect. No apparent risk to self or others. CRITICAL CARE VITAL SIGNS: T PRBP SpO2O2(LPM) %FiO2 Method 11-Apr-2022 11:09:[id number] 97 MDM MDM/ED COURSE: Discussed Findings with: patient Data Reviewed: vital signs Awaiting: lab results (strep pharyngitis swab) Treatment Plan: Rx Zpak, albuterol inhaler. Swab obtained for Strep testing. Encouraged pt to push by mouth fluids, gargle with warm salt water, otc analgesics and cold remedies and rest. Patient's clinical presentation is otherwise unremarkable at this time. Patient is discharged with instructions to follow-up with primary care or seek emergency medical attention for worsening symptoms or any new concerns. DISPOSITION Diagnosis/Annotation: ED Dx Name:Acute pharyngitis Code:J02.9 Disposition: discharged Type: home CONSULT CRITICAL CARE TIME Is this a critically ill patient: no Electronic Signatures for Addendum Section: Kb Meyer ([facility]) (Signed Addendum 12-Apr-2022 09:08) VM left for pt to return call regarding strep test results. Electronic Signatures: Kb Meyer ([employer]) (Signed 12-Apr-2022 09:08) Authored: ED Notes, HPI, PMH, ROS, PE, Results/Vital Signs, MDM/ED Course, Clinical Impression, Attestation, Chart Review, Scores Last Updated: 12-Apr-2022 09:08 by Kb Meyer ([employer]) [facility] Established Visit (Pain Medi cine)on 01-25-2022 Established Visit (Pain Medicine) Diagnoses/Problems Fibromyalgia (729.1) (M79.7) Sacroiliitis (720.2) (M46.1) Muscle spasm (728.85) (M62.838) Orders Fibromyalgia, Muscle spasm Renew: tiZANidine HCl - 2 MG Oral Tablet; 1/2-2 tabs PO BID PRN Patient Discussion/Summary I discussed with the patient the likely etiology of her symptoms, as well as potential treatment options I addressed options with her and since she is doing well I will refill the tizanidine at the same dose since it has been effective. She does not need refills of the etodolac or gabapentin because she has not really using them. I encouraged her to continue with her exercise program and with her efforts toward weight loss. I will see her for follow-up in 6 months or sooner if needed. Chief Complaint HECTOR gonsales reports today having pain across her lower back both sides that radiates into bilat gluteals and done bilat thighs mid way fees muscular rates 4/10,describes as sharp and aching she has numbness and tingling in her bilat hands and ankles into her bilat feet. her pain is worse with sitting. She will need a RF on tizanidine send to [facility]. This is a 26-year-old female here for a follow-up appointment for chief complaint of low back and leg pain. She reports that since her last visit her symptoms have been persistent but manageable. She is rarely using the gabapentin or etodolac. She will use the tizanidine more regularly because it helps with the spasms. She denies side effects. She reports that she has been working out at the gym and is losing weight. She has known new neurologic symptoms or issues with bladder or bowel control. The patient's past medical, social, and family history along with medications and allergies are available and were reviewed. Adult Risk Screening Living Will. Living Will: No living will on file. Healthcare POA: No healthcare proxy on file. Domestic Violence Screen: Does not feel threatened or abused physically, emotionally or sexually. Do you feel UNSAFE? The patient feels safe in the home. Depression/Suicide Screening: She does not have a risk of suicide. She has not had thoughts of harming others. History of Present Illness On a scale of 0 to 10, the patient rates the pain at 4. Pain Location: Low Back Pain and across both sides. Pain Quality: Aching, Sharp and Spasm. Pain Radiation: into bilat gluteals and down thighs mid way. Sensory/ Motor: Numbness, Pins and Follett and Bilat lower legs at ankles, feet , hands and arms ongoing issue. Timing/Duration: Constant and > 12 weeks duration. Controlled Substance: I have personally reviewed the [place] report for YEMI JC. I have considered the risks of abuse, dependence, addiction and diversion. Exacerbating Factors: sitting. Review of Systems 13 systems all normal except noted in HP. Active Problems Acanthosis nigricans (701.2) (L83) Acute left ankle pain (719.47) (M25.572) Acute URI (465.9) (J06.9) Benign essential hypertension (401.1) (I10) Bilateral leg edema (782.3) (R60.0) BMI 50.0-59.9, adult (V85.43) (Z68.43) Chronic low back pain (724.2,338.29) (M54.50,G89.29) Class 3 severe obesity due to excess calories with serious comorbidity and body mass index (BMI) of 50.0 to 59.9 in adult (278.01,V85.43) (E66.01,Z68.43) Contraception management (V25.9) (Z30.9) Cough, persistent (786.2) (R05.3) Decreased libido (799.81) (R68.82) Degeneration of intervertebral disc of lumbar 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) (M51.36) Depression, major, single episode, mild (296.21) (F32.0) Dyspepsia (536.8) (R10.13) Encounter for vaccination (V05.9) (Z23) Fibromyalgia (729.1) (M79.7) JESSICA (generalized anxiety disorder) (300.02) (F41.1) Glucose intolerance (impaired glucose tolerance) (790.22) (R73.02) Hypercholesterolemia (272.0) (E78.00) Low ferritin (790.6) (R79.0) Low vitamin B12 level (266.2) (E53.8) Lumbar radiculitis (724.4) (M54.16) Lumbosacral radiculitis (724.4) (M54.17) Morbid obesity (278.01) (E66.01) Muscle spasm (728.85) (M62.838) Numbness of left foot (782.0) (R20.8) Pleurisy (511.0) (R09.1) Prolapsed lumbar disc (722.10) (M51.26) Sacroiliitis (720.2) (M46.1) Second degree sunburn (692.76) (L55.1) Vaginal candidiasis (112.1) (B37.3) Past Medical History History of Pap test, as part of routine gynecological examination (V76.2) (Z01.419) [facility]OM[facility]ARE Surgical History History of Appendectomy History of Colonoscopy History of Esophagogastroduodenosco py History of [place] tooth extraction Family History Family history of Allergies Family history of depression (V17.0) (Z81.8) Family history of hypertension (V17.49) (Z82.49) Family history of depression (V17.0) (Z81.8) Family history of Allergies Family history of cervical cancer (V16.49) (Z80.49) Family history of depression (V17.0) (Z81.8) Family history of emphysema (V17.6) (Z82.5) Family history of hypertension (V17.49) (Z82.49) Family history of type 2 diabetes mellitus (V18.0 (more content not included)... Normal [employer] Tobacco Screening.on 022 Adult depression screening assessment No [facility] Work Phone: Fall risk assessment a) No falls within the last year [facility] Work Phone: Tobacco use status [facility] b) No M [facility] Work Phone: Tobacco Screening.on 022 Fall risk assessment a) No falls within the last year [facility] Work Phone: Tobacco use status [facility] b) No [facility] Work Phone: Tobacco Screening.on 021 Fall risk assessment a) No falls within the last year [facility] Work Phone: Tobacco use status [facility] b) No M [facility] Work Phone: Tobacco Screening.on 021 Fall risk assessment a) No falls within the last year [facility] Work Phone: Tobacco use status [facility] b) No M [facility] Work Phone: No Panel Informationon 05-07 [email or web address] [email or web address] ll?RetrieveTestByDateTim e?JvionvfQJ=[email or web address]&Da te=03-09-2021&Time=01%3a 07%3a34%3a00&TestType=EC G&Site=14&OutputType=PDF &Ext=PDF [facility] Work Phone: Please see physicia n note for formal interpretation confirmed by Scribe [facility] Work Phone: Normal [facility] Work Phone: [phone] [facility] Work Phone: [phone] [facility] Work Phone: [phone] [facility] Work Phone: [phone] [facility] Work Phone: [phone] [facility] Work Phone: [phone] [facility] Work Phone: [phone] 1 [facility] Work Phone: [phone] 1 [facility] Work Phone: [phone] [facility] Work Phone: [phone] [facility] Work Phone: [phone] [facility] Work Phone: [phone] [facility] Work Phone: [phone] [facility] Work Phone: Radiologyon 05-07-2021 XR Chest 2 Views Please click on the link to view the study images Normal [facility] Work Phone: Tobacco Screening.on Fall risk assessment a) No falls within the last year [facility] Work Phone: Tobacco use status [facility] b) No M [facility] Work Phone: Hemoglobin A1Con 03-24-2021 Glucose [Mass/Vol] 103 mg/dL [facility] Work Phone: HbA1c (Bld) [Mass fraction] 5.2 % [facility] Work Phone: Comment on above: Diagnosis of Diabete s-Adults Non-Diabetic: < or = 5.6% Increased risk for developing diabetes: 5.7-6.4% Diagnostic of diabetes: > or = 6.5%. Monitoring of Diabetes Age (y) Therapeutic Goal (%) Adults: >18 <7.0 Pediatrics: 13-18 <7.5 7-12 <8.0 0- 6 7.5-8.5 [place] [employer]. Diabetes Care 33(S1), May 2009. Laboratory - Chemistry and C hemistry - challengeon 03-24-2021 Albumin BCP dye [Mass/Vol] 3.6 g/dL 3.4 - 5.0 [facility] Work Phone: ALP [Catalytic activity/Vol] 86 U/L 33 - 110 [facility] Work Phone: ALT With P-5'-P [Catalytic activity/Vol] 13 U/L 7 - 45 [facility] Work Phone: Comment on above: Patients treated wit h Sulfasalazine may generate falsely decreased results for ALT. Anion gap [Moles/Vol] 12 mmol/L 10 - 20 [facility] Work Phone: AST With P-5'-P [Catalytic activity/Vol] 9 U/L 9 - 39 [facility] Work Phone: Bilirubin [Mass/Vol] 0.4 mg/dL 0.0 - 1.2 [facility] Work Phone: Calcium [Mass/Vol] 9.0 mg/dL 8.6 - 10.3 [facility] Work Phone: Chloride [Moles/Vol] 106 mmol/L 98 - 107 [facility] Work Phone: CO2 [Moles/Vol] 23 mmol/L 21 - 32 [facility] Work Phone: Creatinine [Mass/Vol] 0.54 mg/dL See Below [facility] Work Phone: Comment on above: Reference Range: 0.5 0 - 1.05 Glucose [Mass/Vol] 79 mg/dL 74 - 99 [facility] Work Phone: Potassium [Moles/Vol] 4.0 mmol/L 3.5 - 5.3 [facility] Work Phone: Protein [Mass/Vol] 6.8 g/dL 6.4 - 8.2 [facility] Work Phone: Sodium [Moles/Vol] 137 mmol/L 136 - 145 [facility] Work Phone: Urea nitrogen [Mass/Vol] 11 mg/dL 6 - 23 [facility] Work Phone: Lipid Panelon 03-24-2021 Cholesterol [Mass/Vol] 223 mg/dL above hig h threshold 0 - 199 [facility] Work Phone: Comment on above: . AGE DESIRABLE BORD JACE HIGH HIGH 0-19 Y 0 - 169 170 - 199 >/= 200 20-24 Y 0 - 189 190 - 224 >/= 225 >24 Y 0 - 199 200 - 239 >/= 240 All ranges are based on fasting samples. Specific therapeutic targets will vary based on patient-specific cardiac risk.. Pediatric guidelines reference:Pediatrics 2011, 128(S5). Adult guidelines reference: NCEP ATPIII Guidelines, RUI 2001, 258:2486-97. Venipuncture immediately after or during the administration of Metamizole may lead to falsely low results. Testing should be performed immediately prior to Metamizole dosing. Cholesterol in HDL [Mass/Vol] 57.0 mg/dL [facility] Work Phone: Comment on above: . AGE VERY LOW LOW N ORMAL HIGH 0-19 Y < 35 < 40 40-45 ---- 20-24 Y ---- < 40 >45 ---- >24 Y ---- < 40 40-60 >60. Cholesterol in LDL [Mass/Vol] 138 mg/dL above high threshold 0 - 119 [facility] Work Phone: Comment on above: . NEAR BORD AGE RONALD RABLE OPTIMAL HIGH HIGH VERY HIGH 0-19 Y 0 - 109 --- 110-129 >/= 130 ---- 20-24 Y 0 - 119 --- 120-159 >/= 160 ---- >24 Y 0 - 99 100-129 130-159 160-189 >/=190. Cholesterol.total/Carmel sterol in HDL [Mass ratio] 3.9 {ratio} [facility] Work Phone: Comment on above: REF VALUESDESIRABLE < 3.4HIGH RISK > 5.0 Triglyceride [Mass/Vol] 138 mg/dL 0 - 149 [facility] Work Phone: Comment on above: . AGE DESIRABLE BORD JACE HIGH HIGH VERY HIGH 0 D-90 D 19 - 174 ---- ---- ----91 D- 9 Y 0 - 74 75 - 99 >/= 100 ---- 10-19 Y 0 - 89 90 - 129 >/= 130 ---- 20-24 Y 0 - 114 115 - 149 >/= 150 ---- >24 Y 0 - 149 150 - 199 200- 499 >/= 500. Venipuncture immediately after or during the administration of Metamizole may lead to falsely low results. Testing should be performed immediately prior to Metamizole dosing. Lipid Panel 28 mg/dL 0 - 40 [facility] Work Phone: No Panel Informationon 03-24 >60 >60 [facility] Work Phone: Comment on above: CALCULATIONS OF SÁNCHEZ MATED GFR ARE PERFORMED USING THE MDRD STUDY EQUATION FOR THE IDMS-TRACEABLE CREATININE METHODS. CLIN CHEM 2007;53:766-72 Vitamin B12, Serumon 021 Cobalamin (Vitamin B12) [Mass/Vol] 437 pg/mL 211 - 911 [facility] Work Phone: MRI L Spine without Contrast on 12-25-2020 MR Lumbar spine WO [facility] Work [facility]: POCT URINALYSIS DIPSTICK AUT OMATED W/O SCOPOrdered By: Zenia Falcon on 12-02-2020 Amorphous sediment LM Ql (Urine sed) [facility] Appearance (U) cloudy [facility] Bacteria LM Ql (Urine sed) [facility] Bilirubin Ql (U) Negative [facility] Casts LM.LPF (Urine sed) [#/Area] [facility] Color (U) brown [facility] Crystals LM Nom (Urine sed) [facility] Epithelial cells.squamous LM.HPF (Urine sed) [#/Area] [facility] Flow cytometry specialist review Logan (Unsp spec) [Interp] [facility] Glucose Auto test strip (U) [Mass/Vol] Negative mg/dL [facility] Ketones [Mass/Vol] Negative mg/dL [facility] Leukocyte esterase Qn (U) [facility] Leukocyte esterase Test strip Ql (U) trace [facility] Nitrite Ql (U) Negative [facility] pH (U) 5.5 [pH] [facility] Protein Ql (U) 100 mg/dL [facility] RBC LM.HPF (Urine sed) [#/Area] [facility] RBC Ql (U) large [facility] Specific gravity (U) [Rel density] >=1.030 [facility] Transitional cells LM Ql (Urine sed) [facility] Urobilinogen Qn (U) 0.2 [facility] WBC LM.HPF (Urine sed) [#/Area] [facility] Internal controls OK [facility] Metabolic Panelon 09-18-2019 ALP [Catalytic activity/Vol] 80 U/L 33 - 110 [facility] Work Phone: Anion gap [Moles/Vol] 10 mmol/L 10 - 20 [facility] Work Phone: Bilirubin [Mass/Vol] 0.4 mg/dL 0.0 - 1.2 [facility] Work Phone: Calcium [Mass/Vol] 8.7 mg/dL 8.6 - 10.3 [facility] Work Phone: Chloride [Moles/Vol] 107 mmol/L 98 - 107 [facility] Work Phone: CO2 [Moles/Vol] 25 mmol/L 21 - 32 [facility] Work Phone: Creatinine [Mass/Vol] 0.54 mg/dL See Below [facility] Work Phone: Comment on above: Reference Range: 0.5 0 - 1.05 Glucose [Mass/Vol] 109 mg/dL above high threshold 74 - 99 [facility] Work Phone: Potassium [Moles/Vol] 4.1 mmol/L 3.5 - 5.3 [facility] Work Phone: Protein [Mass/Vol] 6.7 g/dL 6.4 - 8.2 [facility] Work Phone: Sodium [Moles/Vol] 138 mmol/L 136 - 145 [facility] Work Phone: Urea nitrogen [Mass/Vol] 14 mg/dL 6 - 23 [facility] Work Phone: Otheron 09-18-2019 Albumin BCP dye [Mass/Vol] 3.7 g/dL 3.4 - 5.0 [facility] Work Phone: ALT With P-5'-P [Catalytic activity/Vol] 12 U/L 7 - 45 [facility] Work Phone: Comment on above: Patients treated wit h Sulfasalazine may generate falsely decreased results for ALT. AST With P-5'-P [Catalytic activity/Vol] 11 U/L 9 - 39 [facility] Work Phone: >60 >60 [facility] Work Phone: Comment on above: CALCULATIONS OF SÁNCHEZ MATED GFR ARE PERFORMED USING THE MDRD STUDY EQUATION FOR THE IDMS-TRACEABLE CREATININE METHODS. CLIN CHEM 2007;53:766-72 T4 - Free Thyroxine, Serumon 09-18-2019 Free T4 [Mass/Vol] 0.65 ng/dL See Below [facility] Work Phone: Comment on above: Reference Range: 0.6 1 - 1.12 Thyroxine Free testing is performed using different testing methodology at [facility] than at other [facility]. Direct result comparisons should only be made within the same method.. Biotin can cause falsely elevated free T4 results. Patients taking a Biotin dose of up to 10 mg/day should refrain from taking Biotin for 24 hours before sample collection. Patient taking a Biotin dose of >10 mg/day should consult with their physician or the laboratory before the blood draw. TSH - Thyroid Stimulating Ho rmone, [facility] TSH Qn 3.68 {mIU/L} See Below [facility] Work Phone: Comment on above: Reference Range: 0.4 4 - 3.98 Note new pediatric reference range as of 08/01/2019. TSH testing is performed using different testing methodology at [facility] than at other [facility]. Direct result comparisons should only be made within the same method. Vitamin B12, Serumon 020 Cobalamin (Vitamin B12) [Mass/Vol] 212 pg/mL 211 - 911 [facility] Work Phone: [facility] Anion gap molar conc 10 mmol/L Normal 10-20 [facility] Comment on above: Performed By: #### 2 [id number] #### JEAN CARLOS [address] [place] [address] Calcium mass conc 8.6 mg/dL Normal 8.6-10.3 [facility] Comment on above: Performed By: #### 2 [id number] #### JEAN CARLOS [address] [place] [address] Chloride molar conc 106 mmol/L Normal 98-107 [facility] Comment on above: Performed By: #### 2 [id number] #### JEAN CARLOS [address] [place] [address] CO2 molar conc 25.0 mmol/L Normal 21.0-32.0 [facility] Comment on above: Performed By: #### 2 [id number] #### JEAN CARLOS [address] [place] [address] Creatinine mass conc 0.6 mg/dL Normal 0.5-1.1 [facility] Comment on above: Performed By: #### 2 [id number] #### JEAN CARLOS [address] [place] [address] Glucose mass conc 100 mg/dL High 70-99 [facility] Comment on above: Performed By: #### 2 [id number] #### JEAN CARLOS [address] [place] [address] Potassium molar conc 4.0 mmol/L Normal 3.5-5.3 [facility] Comment on above: Performed By: #### 2 [id number] #### JEAN CARLOS [address] [place] [address] Sodium molar conc 137 mmol/L Normal 136-145 [facility] Comment on above: Performed By: #### 2 [id number] #### JEAN CARLOS [address] [place] [address] Urea nitrogen mass conc 13 mg/dL Normal 6-23 [facility] Comment on above: Performed By: #### 2 [id number] #### JEAN CARLOS [address] [place] [address] Urea nitrogen/Creatinine mass ratio 21.7 ratio Normal 5.4-30.0 [facility] [facility] Comment on above: Performed By: #### 2 [id number] #### JEAN CARLOS [facility]unn[facility] [address] [place] [address] [id number] 09-07-2018 Hemoglobin A1c/Hemoglobin.total mass fraction (Bld) 5.1 % Normal 4.0-6.3 [facility] Comment on above: Performed By: #### 2 [id number] #### JEAN CARLOS RemHemo [address] [place] [address] eGFRon 09-07-2018 GFR/1.73 sq M predicted among non-blacks MDRD vol rate/area (S/P/Bld) mL/min/{1.73_m2} Normal [facility] Comment on above: Order Comment: Order added by Discern Expert. Performed By: #### 2 [id number] #### JEAN CARLOS RemHemo [address] [place] [address] Auto Diffon 06-22-2018 Basophils #/vol (Bld) 0.1 E3/mcL Normal 0.0-0.2 [facility] Comment on above: Order Comment: Order Added by Carmenza Expert. Performed By: #### 2 [id number] #### JEAN CARLOS RemHemo [address] [place] [address] Basophils/100 WBC (Bld) 0.8 % Normal 0.0-2.0 [facility] Comment on above: Order Comment: Order Added by Carmenza Expert. Performed By: #### 2 [id number] #### JEAN CARLOS RemHemo [address] [place] [address] Eos Absolute 0.2 E3/mcL Normal 0.0-0.7 [facility] Comment on above: Order Comment: Order Added by Carmenza Expert. Performed By: #### 2 642251 #### JEAN CARLOS Rem[facility]emo [address] [place] [address] Eosinophils/100 WBC (Bld) 2.6 % Normal 0.0-11.0 [facility] Comment on above: Order Comment: Order Added by Carmenza Expert. Performed By: #### 2 [id number] #### JEAN CARLOS Rem[facility]emo [address] [place] [address] Lymphocytes #/vol (Bld) 2.5 E3/mcL Normal 1.2-3.4 [facility] Comment on above: Order Comment: Order Added by Carmenza Expert. Performed By: #### 2 [id number] #### JEAN CARLOS Rem[facility]emo [address] [place] [address] Lymphocytes/100 WBC (Bld) 27.2 % Normal 20.0-55.0 [facility] Comment on above: Order Comment: Order Added by Discern Expert. Performed By: #### 2 246565 #### JEAN CARLOS [facility]unn[facility] [address] [place] [phone] Traill Absolute 0.5 E3/mcL Normal 0.0-0.7 [facility] Comment on above: Order Comment: Order Added by Discern Expert. Performed By: #### 2 067799 #### JEAN CARLOS Rodrigue[facility] [place] [phone] Monocytes/100 WBC (Bld) 5.1 % Normal 0.0-10.0 [facility] Comment on above: Order Comment: Order Added by Discern Expert. Performed By: #### 2 128867 #### JEAN CARLOS [facility] [place] [address] Neutro Absolute 6.0 E3/mcL Normal 1.4-6.5 [facility] Comment on above: Order Comment: Order Added by Discern Expert. Performed By: #### 2 078094 #### JEAN CARLOS [facility] [address] [place] [address] Neutro Auto 64.3 % Normal 37.0-75.0 [facility] Comment on above: Order Comment: Order Added by Discern Expert. Performed By: #### 2 206190 #### JEAN CARLOS Rodriguezo [address] [place] [address] CBC w/ Auto Diffon 9 Erythrocyte distribution width Ratio (RBC) 14.6 % High 11.5-14.5 [facility] Comment on above: Performed By: #### 2 [id number] #### JEAN CARLOS Rodriguezo [address] [place], [place] [address] Hematocrit Volume Fraction (Bld) 37.5 % Normal 36.0-48.0 [facility] Comment on above: Performed By: #### 2 377249 #### JEAN CARLOS [facility] [place] [phone] Hemoglobin mass conc (Bld) 12.5 g/dL Normal 12.0-16.0 [facility] Comment on above: Performed By: #### 2 148993 #### JEAN CARLOS Sepideh[facility]emo [facility] [place] [phone] MCH Entitic mass (RBC) 27.3 pg Normal 27.0-31.0 [facility] Comment on above: Performed By: #### 2 799791 #### JEAN CARLOS Bunn[facility]emo [address] [place] [address] MCHC mass conc (RBC) 33.4 g/dL Normal 33.0-37.0 [facility] Comment on above: Performed By: #### 2 052616 #### JEAN CARLOS [facility]unn[facility] [address] [place] [phone] MCV Entitic volume (RBC) 81.8 fL Normal 78.0-100.0 [facility] Comment on above: Performed By: #### 2 297133 #### JEAN CARLOS [facility] [address] [place] [phone] Platelet mean volume Entitic volume (Bld) 9.9 fL Normal 7.4-11.0 [facility] Comment on above: Performed By: #### 2 965885 #### JEAN CARLOS [facility] [address] [place] [phone] Platelets #/vol (Bld) 276 E3/mcL Normal 130-400 [facility] Comment on above: Performed By: #### 2 177342 #### JEAN CARLOS [facility]unn[facility] [address] [place] [phone] RBC #/vol (Bld) 4.59 E6/mcL Normal 3.90-5.40 [facility] Comment on above: Performed By: #### 2 648766 #### JEAN CARLOS Bunn[facility]emo [address] [place] [phone] WBC #/vol (Bld) 9.3 E3/mcL Normal 3.6-11.0 [facility] Comment on above: Performed By: #### 2 598033 #### JEAN CARLOS Rem[facility] [address] [place] [phone] CMPon 06-22-2018 Albumin mass conc 4.0 g/dL Normal 3.4-5.0 [facility] Comment on above: Performed By: #### 2 939086 #### JEAN CARLOS Rem[facility] [address] [place] [phone] Albumin/Globulin mass ratio 1.3 {ratio} Normal 1.1-1.9 [facility] Comment on above: Performed By: #### 2 362060 #### JEAN CARLOS [facility]unn[facility] [address] [place] [address] Alk Phos 66 Int._Unit/L Normal 33-110 [facility] Comment on above: Performed By: #### 2 144420 #### JEAN CAROLS [facility]unn[facility] [address] [place] [address] ALT enzyme act/vol 16 Int._Unit/L Normal 7-45 [facility] Comment on above: Performed By: #### 2 623904 #### JEAN CARLOS [facility]unn[facility] [address] [place] [address] Anion gap molar conc 12 mmol/L Normal 10-20 [facility] Comment on above: Performed By: #### 2 598355 #### JEAN CARLOS [facility]unn[facility] [address] [place] [address] AST enzyme act/vol 10 Int._Unit/L Normal 9-39 [facility] Comment on above: Performed By: #### 2 873311 #### JEAN CARLOS [facility]unn[facility] [address] [place] [address] Bili Total 0.32 mg/dL Normal 0.00-1.20 [facility] Comment on above: Performed By: #### 2 879907 #### JEAN CARLOS [facility] [address] [place] [address] Calcium mass conc 9.1 mg/dL Normal 8.6-10.3 [facility] Comment on above: Performed By: #### 2 148860 #### JEAN CARLOS [facility]unn[facility] [address] [place] [address] Chloride molar conc 108 mmol/L High 98-107 [facility] Comment on above: Performed By: #### 2 899608 #### JEAN CARLOS Bunn[facility]emo [address] [place] [address] CO2 molar conc 22.0 mmol/L Normal 21.0-32.0 [facility] Comment on above: Performed By: #### 2 718346 #### JEAN CARLOS Rem[facility]emo [address] [place] [address] Creatinine mass conc 0.6 mg/dL Normal 0.5-1.1 [facility] Comment on above: Performed By: #### 2 565160 #### JEAN CARLOS Bunn[facility] [address] [place] [address] Globulin mass conc (S) 3.0 g/dL Normal 2.0-4.0 [facility] Comment on above: Performed By: #### 2 929899 #### JEAN CARLOS Bunn[facility]emo [address] [place] [address] Glucose mass conc 105 mg/dL High 70-99 [facility] Comment on above: Performed By: #### 2 679879 #### JEAN CARLOS Bunn[facility]emo [address] [place] [address] Potassium molar conc 3.7 mmol/L Normal 3.5-5.3 [facility] Comment on above: Performed By: #### 2 905593 #### JEAN CARLOS Bunn[facility] [address] [place] [address] Protein mass conc 7.0 g/dL Normal 6.4-8.2 [facility] Comment on above: Performed By: #### 2 984163 #### JEAN CARLOS [facility]unn[facility] [address] [place] [address] Sodium molar conc 138 mmol/L Normal 136-145 [facility] Comment on above: Performed By: #### 2 640684 #### JEAN CARLOS Bunn[facility]emo [address] [place] [address] Urea nitrogen mass conc 10 mg/dL Normal 6-23 [facility] Comment on above: Performed By: #### 2 374641 #### JEAN CARLOS Bunn[facility]emo [address] [place] [address] Urea nitrogen/Creatinine mass ratio 16.7 ratio Normal 5.4-30.0 [facility] Comment on above: Performed By: #### 2 600461 #### JEAN CARLOS Bunn[facility]emo [address] [place] [address] Vit B12on 06-22-2018 Cobalamin (Vitamin B12) mass conc 326 pg/mL Normal 180-914 [facility] Comment on above: Performed By: #### 2 820912 #### JEAN CARLOS Bunn[facility]emo [address] [place] [phone] eGFRon 06-22-2018 GFR/1.73 sq M predicted among non-blacks MDRD vol rate/area (S/P/Bld) mL/min/{1.73_m2} Normal [facility] Comment on above: Order Comment: Order added by Discern Expert. Performed By: #### 2 089899 #### JEAN CARLOS Rem[facility]emo [facility] [place] [phone] XR Foot 2 Views Lefton 01-12 XR Foot 2 Views Left Exam Date/Time: 01/11/2018 15:29 EDT Reason for Exam: Pain, Non Traumatic Report STUDY: XR Foot 2 Views Left; 01/11/2018 3:29 pm INDICATION: Pain, Non Traumatic. COMPARISON: None. ACCESSION NUMBER(S): [id number] ORDERING CLINICIAN: Nirali Portillo TECHNIQUE: 2 views of the left foot including AP and lateral projections were obtained. FINDINGS: There is no radiographic evidence of acute fracture or dislocation identified. The joint spaces are well preserved throughout without significant degenerative changes. IMPRESSION: 1. No acute fracture or dislocation identified. FINAL REPORT Dictated: 01/12/2018 8:58 am Dagoberto Morrison MD Signed (Electronic Signature): 01/12/2018 8:58 am Signed by: Dagoberto Morrison MD Technologist: GLP Normal [facility] Auto Diffon 11-22-2017 Basophils #/vol (Bld) 0.1 E3/mcL Normal 0.0-0.2 [facility] Comment on above: Order Comment: Order Added by Discern Expert. Performed By: #### 2 [id number] #### JEAN CARLOS RemHemo [facility] [place] [address] Basophils/100 WBC (Bld) 0.6 % Normal 0.0-2.0 [facility] Comment on above: Order Comment: Order Added by Carmenza Expert. Performed By: #### 2 697938 #### JEAN CARLOS RemHemo [address] [place] [address] Eos Absolute 0.0 E3/mcL Normal 0.0-0.7 [facility] Comment on above: Order Comment: Order Added by Discern Expert. Performed By: #### 2 987728 #### JEAN CARLOS Rem[facility]emo [address] [place] [address] Eosinophils/100 WBC (Bld) 0.1 % Normal 0.0-11.0 [facility] Comment on above: Order Comment: Order Added by Discern Expert. Performed By: #### 2 031232 #### JEAN CARLOS Rem[facility] [address] [place] [address] Lymphocytes #/vol (Bld) 2.1 E3/mcL Normal 1.2-3.4 [facility] Comment on above: Order Comment: Order Added by Discern Expert. Performed By: #### 2 488650 #### JEAN CARLOS Rem[facility] [address] [place] [address] Lymphocytes/100 WBC (Bld) 14.3 % Low 20.0-55.0 [facility] Comment on above: Order Comment: Order Added by Discern Expert. Performed By: #### 2 936286 #### JEAN CARLOS Rem[facility] [address] [place] [address] Traill Absolute 0.4 E3/mcL Normal 0.0-0.7 [facility] Comment on above: Order Comment: Order Added by Discern Expert. Performed By: #### 2 491563 #### JEAN CARLOS [facility] [address] [place] [address] Monocytes/100 WBC (Bld) 3.0 % Normal 0.0-10.0 [facility] Comment on above: Order Comment: Order Added by Discern Expert. Performed By: #### 2 823606 #### JEAN CARLOS [facility] [address] [place] [address] Neutro Absolute 11.8 E3/mcL High 1.4-6.5 [facility] Comment on above: Order Comment: Order Added by Discern Expert. Performed By: #### 2 841067 #### JEAN CARLOS Rem[facility]emo [facility] [place] [address] Neutro Auto 82.0 % High 37.0-75.0 [facility] Comment on above: Order Comment: Order Added by Discern Expert. Performed By: #### 2 854951 #### JEAN CARLOS Rem[facility]emo [address] [place] [address] CBC w/ Auto Diffon 8 Erythrocyte distribution width Ratio (RBC) 14.2 % Normal 11.5-14.5 [facility] Comment on above: Performed By: #### 2 039022 #### JEAN CARLOS Bunn[facility]emo [facility] [place] [address] Hematocrit Volume Fraction (Bld) 37.9 % Normal 36.0-48.0 [facility] Comment on above: Performed By: #### 2 866752 #### JEAN CARLOS Bunn[facility]emo [address] [place] [address] Hemoglobin mass conc (Bld) 12.7 g/dL Normal 12.0-16.0 [facility] Comment on above: Performed By: #### 2 267058 #### JEAN CARLOSKatrina BunnHemo [address] [place] [address] MCH Entitic mass (RBC) 27.3 pg Normal 27.0-31.0 [facility] Comment on above: Performed By: #### 2 638442 #### JEAN CARLOS Bunn[facility]emo [address] [place] [address] MCHC mass conc (RBC) 33.5 g/dL Normal 33.0-37.0 [facility] Comment on above: Performed By: #### 2 321363 #### JEAN CARLOSKatrina BunnHemo [address] [place] [address] MCV Entitic volume (RBC) 81.5 fL Normal 78.0-100.0 [facility] Comment on above: Performed By: #### 2 684018 #### JEAN CARLOSKatrina BunnHemo [address] [place], [place] [address] Platelet mean volume Entitic volume (Bld) 9.7 fL Normal 7.4-11.0 [facility] Comment on above: Performed By: #### 2 378527 #### JEAN CARLOSKatrina BunnHemo [facility] [place] [address] Platelets #/vol (Bld) 346 E3/mcL Normal 130-400 [facility] Comment on above: Performed By: #### 2 241681 #### JEAN CARLOSKatrina BunnHemo [address] [place] [address] RBC #/vol (Bld) 4.65 E6/mcL Normal 3.90-5.40 [facility] Comment on above: Performed By: #### 2 628199 #### JEAN CARLOS Bunn[facility]emo [address] [place] [address] WBC #/vol (Bld) 14.4 E3/mcL High 3.6-11.0 [facility] Comment on above: Performed By: #### 2 071410 #### JEAN CARLOS Bunn[facility]emo [address] [place] [address] CMPon 11-22-2017 Albumin mass conc 3.8 g/dL Normal 3.2-5.0 [facility] Comment on above: Performed By: #### 2 898954 #### JEAN CARLOS [facility] [address] [place] [address] Albumin/Globulin mass ratio 1.0 {ratio} Low 1.1-1.9 [facility] Comment on above: Performed By: #### 2 858609 #### JEAN CARLOS [facility] [address] [place] [address] Alk Phos 78 Int._Unit/L Normal 42-121 [facility] Comment on above: Performed By: #### 2 612771 #### JEAN CARLOS [employer] [address] [place] [address] ALT enzyme act/vol 30 Int._Unit/L Normal 10-40 [facility] Comment on above: Performed By: #### 2 289831 #### JEAN CARLOS [employer] [address] [place] [address] AST enzyme act/vol 23 Int._Unit/L Normal 10-42 [facility] Comment on above: Performed By: #### 2 805718 #### JEAN CARLOS [facility] [address] [place] [address] Bili Total 0.4 mg/dL Normal 0.2-1.0 [facility] Comment on above: Performed By: #### 2 362595 #### JEAN CARLOS [facility] [address] [place] [address] Creatinine mass conc 0.6 mg/dL Normal 0.6-1.3 [facility] Comment on above: Performed By: #### 2 725395 #### JEAN CARLOS [facility] [address] [place] [address] Globulin mass conc (S) 4.0 g/dL Normal 2.0-4.0 [facility] Comment on above: Performed By: #### 2 302031 #### JEAN CARLOS [facility] [address] [place] [address] Protein mass conc 7.8 g/dL Normal 6.4-8.3 [facility] Comment on above: Performed By: #### 2 881908 #### JEAN CARLOS [facility] [address] [place] [address] Urea nitrogen mass conc 12 mg/dL Normal 7-18 [facility] Comment on above: Performed By: #### 2 830088 #### JEAN CARLOS [facility] [address] [place] [address] Urea nitrogen/Creatinine mass ratio 20.0 ratio Normal 5.4-30.0 [facility] Comment on above: Performed By: #### 2 710666 #### JEAN CARLOS [facility] [address] [place] [address] Calcium mass conc 9.1 mg/dL Normal 8.4-10.2 [facility] Comment on above: Performed By: #### 2 960030 #### JEAN CARLOS [facility] [address] [place] [address] Chloride molar conc 103 mmol/L Normal 98-107 [facility] Comment on above: Performed By: #### 2 042646 #### JEAN CARLOS [facility] [address] [place] [address] CO2 molar conc 25.4 mmol/L Normal 24.0-30.0 [facility] Comment on above: Performed By: #### 2 103371 #### JEAN CARLOS [employer] [address] [place] [address] Glucose mass conc 111 mg/dL High 70-99 [facility] Comment on above: Performed By: #### 2 331862 #### JEAN CARLOS [employer] [address] [place] [address] Potassium molar conc 3.9 mmol/L Normal 3.5-5.1 [facility] Comment on above: Performed By: #### 2 165811 #### JEAN CARLOS [facility] [place] [address] Sodium molar conc 137 mmol/L Normal 136-145 [facility] Comment on above: Performed By: #### 2 330483 #### JEAN CARLOS [employer] [address] [place] [address] Ferritinon 11-22-2017 Ferritin mass conc 49.3 ng/mL Normal 11.0-306.8 [facility] Comment on above: Performed By: #### 2 661671 #### JEAN CARLOS [employer] [address] [place], [place] [address] StdH1bwc 11-22-2017 Hemoglobin A1c/Hemoglobin.total mass fraction (Bld) 5.0 % Normal 4.0-6.3 [facility] Comment on above: Performed By: #### 3 [id number] #### JEAN CARLOS Chemistry Manual Subsection [address] [place] [address] Ironon 11-22-2017 Iron mass conc 49 microgram/dL Normal 35-155 [facility] Comment on above: Performed By: #### 2 716170 #### JEAN CARLOS [employer] [address] [place], [place] [address] US Abdomen, Limitedon 2017 US Abdomen, Limited Exam Date/Time: 11/22/2017 07:31 EDT Reason for Exam: DARK TARRY STOOLS NAUSEA RIGHT UPPER QUAD PAIN DYSPEPSIA;Abdominal pain Report STUDY: US Abdomen, Limited; 11/22/2017 7:31 am INDICATION: Abdominal pain. COMPARISON: None. ACCESSION NUMBER(S): [id number] ORDERING CLINICIAN: ASHLYN GATES TECHNIQUE: Multiple images of the right upper quadrant were obtained. The study was somewhat limited due to the patient's body habitus and overlying bowel gas. FINDINGS: LIVER: The visualized portions of the liver are grossly unremarkable and free of any focal lesions. GALLBLADDER: The gallbladder is nondistended demonstrates no evidence of gallstones, wall thickening or surrounding fluid. Sonographic Lilly's sign is negative. BILIARY TREE: No intrahepatic biliary dilatation is identified. The common bile duct measures at the upper limits of normal, at 6 mm. PANCREAS: The pancreas is poorly visualized due to overlying bowel gas. RIGHT KIDNEY: The right kidney is normal in size, measuring 11.6 cm in craniocaudal dimension. The renal cortical echogenicity and thickness are within normal limits. No hydronephrosis or renal calculi are seen. IMPRESSION: The common bile duct measures at the upper limits of normal for diameter, at 6 mm. The pancreas is poorly visualized due to overlying bowel gas. Further clinical correlation is recommended. Exam Date/Time: 11/22/2017 07:31 EDT Report No other focal abnormalities are appreciated. FINAL REPORT Dictated: 11/22/2017 9:21 am Tang Kessler MD Signed (Electronic Signature): 11/22/2017 9:21 am Signed by: Tang Kessler MD Technologist: COURTNEY Normal [facility] Vit B12on 11-22-2017 Cobalamin (Vitamin B12) mass conc 419 pg/mL Normal 180-914 [facility] Comment on above: Performed By: #### 2 [id number] #### JEAN CARLOS [employer] [facility] [place] [id number] eGFRon 11-22-2017 GFR/1.73 sq M predicted among non-blacks MDRD vol rate/area (S/P/Bld) mL/min/{1.73_m2} Normal [facility] Comment on above: Order Comment: Order added by Discern Expert. Performed By: #### 1 [id number] #### JEAN CARLOS [facility] [facility] [place] [address] JOCELYN Teston 11-17-2017 JOCELYN Test Negative Normal Negative [facility] Comment on above: Performed By: #### 8 [id number] #### JEAN CARLOS [facility] , Pathology ([facility])on 04-27-2017 Pathology ([facility]) FINAL GYNECOLOGIC CYTOLOGY [id number] ADEQUACYSatisfactory for Evaluation. No endocervical cells/transformation zonecomponent present.GENERAL CATEGORIZATIONNegative for Intraepithelial Lesion or MalignancyDESCRIPTIVE DIAGNOSISParakeratosis is present.COMMENTCytolysis present.CLINICAL HISTORYComment: No LMP provided.SPECIMEN(A) SCREENING CERVICAL/ENDOCERVICAL LIQUID-BASED PAPPerformed at [facility], [address] [place], [place] [address]Screened by: ARBEN TAVERAS, Scada Engineer Signed Out by: ARACELI FINNEGAN M.D. Reported: 05/02/2017 Normal [facility] Comment on above: Performed By: #### G YN ####[facility] [id number] [place] [address] Vital Signs Date Time Vital Sign Value Performing Clinician Facility 10-30-2024 13:13-0400 Body height 165.1 cm Ashlyn [place] PA-C Work Phone: [facility] 10-30-2024 13:13-0400 Body mass index (BMI) [Ratio] 65 kg/m2 Ashlyn Yajaira PA-C Work Phone: [facility] 10-30-2024 13:13-0400 Body weight 177.18 kg Ashlyn Yajaira PA-C Work Phone: [facility] 10-30-2024 13:13-0400 Diastolic blood pressure 85 mm[Hg] Ashlyn Yajaira PA-C Work Phone: [facility] 10-30-2024 13:13-0400 Heart rate 79 /min Ashlyn [place] PA-C Work Phone: [facility] 10-30-2024 13:13-0400 SaO2% (BldA) [Mass fraction] 94 % Ashlyn [place] PA-C Work Phone: [facility] 10-30-2024 13:13-0400 Systolic blood pressure 140 mm[Hg] Ashlyn [place] PA-C Work Phone: [facility] 09-11-2024 09:24-0400 Body height 165.1 cm Ashlyn [place] PA-C Work Phone: [facility] 09-11-2024 09:24-0400 Body mass index (BMI) [Ratio] 63.83 kg/m2 Ashlyn Yajaira PA-C Work Phone: [facility] 09-11-2024 09:24-0400 Body weight 174 kg Ashlyn Yajaira PA-C Work Phone: [facility] 09-11-2024 09:24-0400 Diastolic blood pressure 82 mm[Hg] Ashlyn [place] PA-C Work Phone: [facility] 09-11-2024 09:24-0400 Heart rate 74 /min Ashlyn Yajaira PA-C Work Phone: [facility] 09-11-2024 09:24-0400 SaO2% (BldA) [Mass fraction] 95 % Ashlyn Yajaira PA-C Work Phone: [facility] 09-11-2024 09:24-0400 Systolic blood pressure 129 mm[Hg] Ashlyn Yajaira PA-C Work Phone: [facility] 08-15-2024 09:49-0400 Body height 165.1 cm Ashlyn [place] PA Work Phone: [facility] 08-15-2024 09:49-0400 Body mass index (BMI) [Ratio] 59.9 kg/m2 Ashlyn Yajaira PA Work Phone: [facility] 08-15-2024 09:49-0400 Body weight 163.29 kg Ashlyn Yajaira PA Work Phone: [facility] 08-15-2024 09:49-0400 Diastolic blood pressure 88 mm[Hg] Ashlyn [place] PA Work Phone: [facility] 08-15-2024 09:49-0400 Heart rate 68 /min Ashlyn Yajaira PA Work Phone: [facility] 08-15-2024 09:49-0400 Respiratory rate 18 /min Ashlyn [place] PA Work Phone: [facility] 08-15-2024 09:49-0400 Systolic blood pressure 138 mm[Hg] Ashlyn Yajaira PA Work Phone: [facility] 08-07-2024 08:52-0400 Body mass index (BMI) [Ratio] 63.04 kg/m2 Fabi PERKINS Work Phone: [facility] 08-07-2024 08:52-0400 Body weight 171.82 kg Fabi Dentt [employer] Work Phone: [facility] 08-07-2024 08:52-0400 Diastolic blood pressure 101 mm[Hg] Fabi Dentt [employer] Work Phone: [facility] 08-07-2024 08:52-0400 Heart rate 114 /min Fabi Irizarryhart [employer] Work Phone: [facility] 08-07-2024 08:52-0400 Systolic blood pressure 134 mm[Hg] Fabi Giraldo [employer] Work Phone: [facility] 08-02-2024 09:01-0500 Body mass index (BMI) [Ratio] 59.9 kg/m2 Ashlyn [place] PA Work Phone: [facility] 08-02-2024 09:01-0500 Body weight 163.29 kg Ashlyn [place] PA Work Phone: [facility] 08-02-2024 09:01-0500 Diastolic blood pressure 72 mm[Hg] Ashlyn [place] PA Work Phone: [facility] 08-02-2024 09:01-0500 Heart rate 81 /min Ashlyn Yajaira PA Work Phone: [facility] 08-02-2024 09:01-0500 Respiratory rate 18 /min Ashlyn San Anselmo PA Work Phone: [facility] 08-02-2024 09:01-0500 SaO2% (BldA) [Mass fraction] 95 % Ashlyn San Anselmo PA Work Phone: [facility] 08-02-2024 09:01-0500 Systolic blood pressure 112 mm[Hg] Ashlyn Yajaira PA Work Phone: [facility] 08-01-2024 09:17-0500 Body temperature 97.8 [degF] Ashlyn Yajaira PA Work Phone: [facility] 08-01-2024 09:17-0500 Diastolic blood pressure 107 mm[Hg] Ashlyn Yajaira PA Work Phone: [facility] 08-01-2024 09:17-0500 Heart rate 101 /min Ashlyn San [place]mo PA Work Phone: [facility] 08-01-2024 09:17-0500 Respiratory rate 14 /min Ashlyn San [place]mo PA Work Phone: [facility] 08-01-2024 09:17-0500 SaO2% (BldA) [Mass fraction] 97 % Ashlyn San Anselmo PA Work Phone: [facility] 08-01-2024 09:17-0500 Systolic blood pressure 146 mm[Hg] Ashlyn San Anselmo PA Work Phone: [facility] 08-01-2024 06:41-0500 Body mass index (BMI) [Ratio] 28.5 kg/m2 Ashlyn San Anselmo PA Work Phone: [facility] 08-01-2024 06:41-0500 Body weight 77.81 kg Ashlyn San Anselmo PA Work Phone: [facility] 07-30-2024 13:07-0500 Body height 165.1 cm Desiree Sin MD Work Phone: [facility] 07-30-2024 13:07-0500 Body mass index (BMI) [Ratio] 62.9 kg/m2 Desiree Sin MD Work Phone: [facility] 07-30-2024 13:07-0500 Body weight 171.46 kg Desiree Sin MD Work Phone: [facility] 07-30-2024 13:07-0500 Diastolic blood pressure 87 mm[Hg] Desiree Sin MD Work Phone: [facility] 07-30-2024 13:07-0500 Heart rate 94 /min Desiree Sin MD Work Phone: [facility] 07-30-2024 13:07-0500 Systolic blood pressure 118 mm[Hg] Desiree Sin MD Work Phone: [facility] 07-24-2024 13:12-0500 Body temperature 99 [degF] Ashlyn San Anselmo PA Work Phone: [facility] 07-24-2024 13:12-0500 Diastolic blood pressure 74 mm[Hg] Ashlyn San An[place]mo PA Work Phone: [facility] 07-24-2024 13:12-0500 Heart rate 120 /min Ashlyn San Anselmo PA Work Phone: [facility] 07-24-2024 13:12-0500 Respiratory rate 16 /min Ashlyn San An[place]mo PA Work Phone: [facility] 07-24-2024 13:12-0500 SaO2% (BldA) [Mass fraction] 95 % Ashlyn Yajaira PA Work Phone: [facility] 07-24-2024 13:12-0500 Systolic blood pressure 121 mm[Hg] Ashlyn Yajaira PA Work Phone: [facility] 07-24-2024 04:54-0500 Body mass index (BMI) [Ratio] 63 kg/m2 Ashlyn Yajaira PA Work Phone: [facility] 07-24-2024 04:54-0500 Body weight 171.8 kg Ashlyn Yajaira PA Work Phone: [facility] 06-19-2024 14:12-0500 Body height 165.1 cm Ashlyn San Anselmo PA-C Work Phone: [facility] 06-19-2024 14:12-0500 Body mass index (BMI) [Ratio] 62.64 kg/m2 Ashlyn San Anselmo PA-C Work Phone: [facility] 06-19-2024 14:12-0500 Body weight 170.73 kg Ashlyn Titusenhall PA-C Work Phone: [facility] 06-19-2024 14:12-0500 Diastolic blood pressure 89 mm[Hg] Ashlyn Gates PA-C Work Phone: [facility] 06-19-2024 14:12-0500 Heart rate 101 /min Ashlyn Titusenhall PA-C Work Phone: [facility] 06-19-2024 14:12-0500 Systolic blood pressure 125 mm[Hg] Ashlyn Gates PA-C Work Phone: [facility] 05-17-2024 09:37-0500 Body mass index (BMI) [Ratio] 62.7 kg/m2 Fabi Giraldo APRN-[employer] Work Phone: [facility] 05-17-2024 09:37-0500 Body weight 170.91 kg Fabi Giraldo APRN-[employer]ER [employer] Work Phone: [facility] 05-17-2024 09:37-0500 Diastolic blood pressure 85 mm[Hg] Fabi Giraldo APRN-[employer] Work Phone: [facility] 05-17-2024 09:37-0500 Heart rate 89 /min Fabi Giraldo APRN-[employer] Work Phone: [facility] 05-17-2024 09:37-0500 SaO2% (BldA) [Mass fraction] 97 % Fabi Giraldo [employer] Work Phone: [facility] 05-17-2024 09:37-0500 Systolic blood pressure 137 mm[Hg] Fabi Giraldo APRN-[employer]ER [employer] Work Phone: [facility] 04-10-2024 09:58-0500 Diastolic blood pressure 96 mm[Hg] Fabi Giraldo APRN-[employer]ER [employer] Work Phone: [facility] 04-10-2024 09:58-0500 Systolic blood pressure 142 mm[Hg] Fabi Giraldo APRN-[employer]ER [employer] [facility] 04-10-2024 09:45-0500 Body mass index (BMI) [Ratio] 62.7 kg/m2 Fabi Giraldo [employer] Work Phone: [facility] [employer] [facility] 04-10-2024 09:45-0500 Body weight 170.91 kg Fabi Giraldo APRN-[employer]ER [employer]PER Work Phone: [facility] 04-10-2024 09:45-0500 Heart rate 82 /min Fabi Giraldo APRN-[employer]ER [employer] Work Phone: [facility] 03-07-2024 13:54-0400 Diastolic blood pressure 88 mm[Hg] Fabi Giraldo APRN-[employer]ER [employer]PER Work Phone: [facility] [employer] [facility] 03-07-2024 13:54-0400 Systolic blood pressure 126 mm[Hg] Fabi Giraldo APRN-[employer]ER [employer] Work Phone: [facility] 03-07-2024 13:41-0400 Body height 165.1 cm Fabi Giraldo APRN-[employer] Work Phone: [facility] 03-07-2024 13:41-0400 Body mass index (BMI) [Ratio] 63.02 kg/m2 Fabi Giraldo APRN-[employer] Work Phone: [facility] [employer] [facility] 03-07-2024 13:41-0400 Body weight 171.78 kg Fabi Giraldo [employer] Work Phone: [facility] [employer] [facility] 03-07-2024 13:41-0400 Heart rate 96 /min Fabi Giraldo APRN-[employer] Work Phone: [facility] 03-07-2024 13:41-0400 SaO2% (BldA) [Mass fraction] 98 % Fabi Giraldo APRN-[employer] Work Phone: [facility] 12-18-2023 14:01-0400 Body height 165.1 cm Ashlyn Gates PA-C Work Phone: [facility] 12-18-2023 14:01-0400 Body mass index (BMI) [Ratio] 62.24 kg/m2 Ashlyn Walkerall PA-C Work Phone: [facility] 12-18-2023 14:01-0400 Body weight 169.65 kg Ashlyn Gates PA-C Work Phone: [facility] 12-18-2023 14:01-0400 Diastolic blood pressure 86 mm[Hg] Ashlyn Walkerall PA-C Work Phone: [facility] 12-18-2023 14:01-0400 Heart rate 96 /min Ashlyn Walkerall PA-C Work Phone: [facility] 12-18-2023 14:01-0400 Systolic blood pressure 127 mm[Hg] Ashlyn Walkerall PA-C Work Phone: [facility] 12-08-2023 14:27-0400 Diastolic blood pressure 86 mm[Hg] Fabi Giraldo [employer] Work Phone: [facility] 12-08-2023 14:27-0400 Systolic blood pressure 144 mm[Hg] Fabi Giraldo [employer] Work Phone: [facility] 12-08-2023 14:18-0400 Body height 165.1 cm Fabi Giraldo [employer] Work Phone: [facility] 12-08-2023 14:18-0400 Body mass index (BMI) [Ratio] 62.47 kg/m2 Fabi Giraldo [employer] [facility] 12-08-2023 14:18-0400 Body weight 170.28 kg Fabi Giraldo [employer] [facility] 12-08-2023 14:18-0400 Heart rate 94 /min Fabi Giraldo [employer] Work Phone: [facility] 09-07-2023 15:43-0400 Body height 165.1 cm Fabi Giraldo [employer] Work Phone: [facility] 09-07-2023 15:43-0400 Body mass index (BMI) [Ratio] 62.64 kg/m2 Fabi Giraldo [employer] Work Phone: [facility] 09-07-2023 15:43-0400 Body weight 170.73 kg Fabi Giraldo [employer] Work Phone: [facility] 09-07-2023 15:43-0400 Diastolic blood pressure 91 mm[Hg] Fabi Giraldo [employer] Work Phone: [facility] 09-07-2023 15:43-0400 Heart rate 94 /min Fabi Giraldo [employer] [facility] 09-07-2023 15:43-0400 Systolic blood pressure 148 mm[Hg] Fabi Giraldo [employer] Work Phone: [facility] 08-12-2023 08:48-0400 Body temperature 98.1 [degF] Patricia Kimbroughta [employer] Work Phone: [facility] 08-12-2023 08:25-0400 Diastolic blood pressure 114 mm[Hg] Patricia Tanvir [employer] Work Phone: [facility] 08-12-2023 08:25-0400 Heart rate 100 /min Patricia Tanvir [employer] Work Phone: [facility] 08-12-2023 08:25-0400 SaO2% (BldA) [Mass fraction] 100 % Patricia Tanvir [employer] Work Phone: [facility] 08-12-2023 08:25-0400 Systolic blood pressure 164 mm[Hg] Patricia Tanvir [employer] Work Phone: [facility] 08-12-2023 08:21-0400 Body height 165.1 cm Patricia Ramey [employer] Work Phone: [facility] 08-12-2023 08:21-0400 Body mass index (BMI) [Ratio] 62.57 kg/m2 Patricia Ramey [employer] Work Phone: [facility] 08-12-2023 08:21-0400 Body weight 170.55 kg Patricia Ramey [employer] Work Phone: [facility] 08-12-2023 08:21-0400 Respiratory rate 20 /min Patricia Ramey [employer] Work Phone: [facility] 05-25-2023 13:31-0500 Body mass index (BMI) [Ratio] 62.77 kg/m2 Fabi Giraldo [employer] [facility] 05-25-2023 13:31-0500 Body weight 171.1 kg Fabi Kristal [employer] Work Phone: [facility] 05-25-2023 13:31-0500 Diastolic blood pressure 81 mm[Hg] Fabi Giraldo [employer] Work Phone: [facility] 05-25-2023 13:31-0500 Heart rate 84 /min Fabi Giraldo [employer] Work Phone: [facility] 05-25-2023 13:31-0500 Systolic blood pressure 140 mm[Hg] Fabi Giraldo [employer] Work Phone: [facility] 05-23-2023 14:00-0500 Body height 165.1 cm Ashlyn Gates PA-C Work Phone: [facility] 05-23-2023 14:00-0500 Body mass index (BMI) [Ratio] 62.74 kg/m2 Ashlyn Gates PA-C Work Phone: [facility] 05-23-2023 14:00-0500 Body weight 171.01 kg Ashlyn Gates PA-C Work Phone: [facility] 05-23-2023 14:00-0500 Diastolic blood pressure 93 mm[Hg] Ashlyn Gates PA-C Work Phone: [facility] 05-23-2023 14:00-0500 Respiratory rate 96 /min Ashlyn Gates PA-C Work Phone: [facility] 05-23-2023 14:00-0500 SaO2% (BldA) [Mass fraction] 95 % Ashlyn Yajaira PA-C Work Phone: [facility] 05-23-2023 14:00-0500 Systolic blood pressure 144 mm[Hg] Ashlyn Gates PA-C Work Phone: [facility] 02-15-2023 08:09-0400 Diastolic blood pressure 96 mm[Hg] Fabi Giraldo [employer] [facility] 02-15-2023 08:09-0400 Systolic blood pressure 142 mm[Hg] Fabi Giraldo [employer] Work Phone: [facility] 02-15-2023 07:56-0400 Body mass index (BMI) [Ratio] 61.67 kg/m2 Fabi Giraldo APRN-[employer] Work Phone: [facility] 02-15-2023 07:56-0400 Body weight 168.1 kg Fabi Giraldo APRN-[employer]ER [employer]PER Work Phone: [facility] 02-15-2023 07:56-0400 Heart rate 87 /min Fabi Giraldo APRN-[employer]AL WE[employer]ER [employer]PER [facility] 01-10-2023 10:16-0400 Body height 165.1 cm Ashlyn Gates Work Phone: [facility] Work Phone: 01-10-2023 10:16-0400 Body mass index (BMI) [Ratio] 61.24 kg/m2 Ashlyn Gates Work Phone: [facility] Work Phone: 01-10-2023 10:16-0400 Body surface area Derived from formula 2.56 m2 Ashlyn Gates Work Phone: [facility] Work Phone: 01-10-2023 10:16-0400 Body weight 166.92 kg Ashlyn Gates Work Phone: [facility] Work Phone: 01-10-2023 10:16-0400 Diastolic blood pressure 80 mm[Hg] Ashlyn Gates Work Phone: [facility] Work Phone: 01-10-2023 10:16-0400 Heart rate 100 /min Ashlyn Gates Work Phone: [facility] Work Phone: 01-10-2023 10:16-0400 Respiratory rate 16 /min Ashlyn Gates Work Phone: [facility] Work Phone: 01-10-2023 10:16-0400 Systolic blood pressure 142 mm[Hg] Ashlyn Gates Work Phone: [facility] Work Phone: 11-24-2022 15:35-0400 Body height 165.1 cm Fabi Giraldo APRN-[employer] Work Phone: [facility] 11-24-2022 15:35-0400 Body mass index (BMI) [Ratio] 60.71 kg/m2 Fabi Giraldo APRN-[employer] Work Phone: [facility] 11-24-2022 15:35-0400 Body weight 165.47 kg Fabi Giraldo [employer] Work Phone: [facility] 11-24-2022 15:35-0400 Diastolic blood pressure 83 mm[Hg] Fabi Giraldo [employer] Work Phone: [facility] 11-24-2022 15:35-0400 Heart rate 96 /min Fabi Giraldo [employer] Work Phone: [facility] 11-24-2022 15:35-0400 Systolic blood pressure 139 mm[Hg] Fabi Giraldo [employer] Work Phone: [facility] 11-01-2022 14:46-0400 Body height 165.1 cm Ashlynphylicia Walkerall PA-C Work Phone: [facility] 11-01-2022 14:46-0400 Body mass index (BMI) [Ratio] 60.57 kg/m2 Ashlyn San Anselmo PA-C Work Phone: [facility] 11-01-2022 14:46-0400 Body weight 165.11 kg Ashlyn Yajaira PA-C Work Phone: [facility] 11-01-2022 14:46-0400 Diastolic blood pressure 91 mm[Hg] Ashlyn Yajaira PA-C Work Phone: [facility] 11-01-2022 14:46-0400 Heart rate 93 /min Ashlyn Yajaira PA-C Work Phone: [facility] 11-01-2022 14:46-0400 Systolic blood pressure 137 mm[Hg] Ashlyn San [place]mo PA-C Work Phone: [facility] 10-26-2022 15:48-0400 Diastolic blood pressure 92 mm[Hg] Fabi Giraldo [employer] Work Phone: [facility] 10-26-2022 15:48-0400 Systolic blood pressure 158 mm[Hg] Fabi Kristal [employer] Work Phone: [facility] 10-26-2022 15:33-0400 Body height 165.1 cm Fabi Kristal [employer] Work Phone: [facility] 10-26-2022 15:33-0400 Body mass index (BMI) [Ratio] 60.31 kg/m2 Fabi Giraldo [employer] Work Phone: [facility] 10-26-2022 15:33-0400 Body temperature 98.4 [degF] Fabi Giraldo [employer] Work Phone: [facility] 10-26-2022 15:33-0400 Body weight 164.38 kg Fabi Giraldo [employer] Work Phone: [facility] 10-26-2022 15:33-0400 Heart rate 89 /min Fabi Kristal [employer] Work Phone: [facility] 10-26-2022 15:33-0400 SaO2% (BldA) [Mass fraction] 98 % Fabi Giraldo [employer] Work Phone: [facility] 09-03-2022 21:11-0400 Respiratory rate 18 /min PA Ashlyn Gates PA Work Phone: [facility] 09-03-2022 19:12-0400 Body height 165.1 cm PA Ashlynphylicia Walkerall PA Work Phone: [facility] 09-03-2022 19:12-0400 Body mass index (BMI) [Ratio] 60 kg/m2 PA Ashlyn Yajaira PA Work Phone: [facility] 09-03-2022 19:12-0400 Body temperature 97.6 [degF] PA Ashlynphylicia Walkerall PA Work Phone: [facility] 09-03-2022 19:12-0400 Body weight 163.61 kg PA Ashlynphylicia Walkerall PA Work Phone: [facility] 09-03-2022 19:12-0400 Diastolic blood pressure 107 mm[Hg] PA Ashlyn Gates PA Work Phone: [facility] 09-03-2022 19:12-0400 Heart rate 110 /min PA Ashlyn Gates PA Work Phone: [facility] 09-03-2022 19:12-0400 SaO2% (BldA) [Mass fraction] 97 % PA Ashlyn Gates PA Work Phone: [facility] 09-03-2022 19:12-0400 Systolic blood pressure 162 mm[Hg] PA Ashlyn Gates PA Work Phone: [facility] 08-30-2022 13:40-0400 Diastolic blood pressure 92 mm[Hg] Fabi Giraldo [employer] Work Phone: [facility] 08-30-2022 13:40-0400 Systolic blood pressure 148 mm[Hg] Fabi Giraldo [employer] Work Phone: [facility] 08-30-2022 13:24-0400 Body mass index (BMI) [Ratio] 60.29 kg/m2 Fabi Giraldo [employer] Work Phone: [facility] 08-30-2022 13:24-0400 Body weight 164.34 kg Fabi Girlado [employer] Work Phone: [facility] 08-30-2022 13:24-0400 Heart rate 98 /min Fabi Giraldo [employer] Work Phone: [facility] 07-26-2022 14:28-0500 Diastolic blood pressure 84 mm[Hg] Fabi Giraldo [employer] Work Phone: [facility] 07-26-2022 14:28-0500 Systolic blood pressure 134 mm[Hg] Fabi Giraldo [employer] Work Phone: [facility] 07-26-2022 14:10-0500 Body height 165.1 cm Fabi Giraldo [employer] Work Phone: [employer] [facility] 07-26-2022 14:10-0500 Body mass index (BMI) [Ratio] 60.41 kg/m2 Fabi Giraldo [employer] [facility] 07-26-2022 14:10-0500 Body weight 164.66 kg Fabi Giraldo [employer] Work Phone: [facility] 07-26-2022 14:10-0500 Heart rate 91 /min Fabi Giraldo [employer] Work Phone: [facility] [employer] [facility] 06-28-2022 15:32-0500 Diastolic blood pressure 94 mm[Hg] Fabi Dentt [employer] Work Phone: [facility] 06-28-2022 15:32-0500 Systolic blood pressure 158 mm[Hg] Fabi Dentt [employer] Work Phone: [facility] 06-28-2022 14:58-0500 Body height 165.1 cm Fabi Giraldo [employer] Work Phone: [facility] [employer] [facility] 06-28-2022 14:58-0500 Body mass index (BMI) [Ratio] 60.81 kg/m2 Fabi Giraldo [employer] Work Phone: [facility] 06-28-2022 14:58-0500 Body weight 165.74 kg Fabi Giraldo [employer] Work Phone: [facility] 06-28-2022 14:58-0500 Heart rate 82 /min Fabi Giraldo [employer] Work Phone: [facility] [employer] [facility] 05-18-2022 06:32-0500 Body mass index (BMI) [Ratio] 58.7 kg/m2 JOHN LOPEZ Work Phone: [facility] 05-18-2022 06:32-0500 Body temperature 98.3 [degF] PA Ashlynphylicia Walkerall PA Work Phone: [facility] 05-18-2022 06:32-0500 Body weight 160.11 kg PA Ashlyn Yajaira PA Work Phone: [facility] 05-18-2022 06:32-0500 Diastolic blood pressure 90 mm[Hg] PA Ashlynphylicia Walkerall PA Work Phone: [facility] 05-18-2022 06:32-0500 Heart rate 92 /min PA Ashlyn Yajaira PA Work Phone: [facility] 05-18-2022 06:32-0500 Respiratory rate 14 /min PA Ashlyn San Anselmo PA Work Phone: [facility] 05-18-2022 06:32-0500 SaO2% (BldA) [Mass fraction] 98 % PA Ashlynphylicia Walkerall PA Work Phone: [facility] 05-18-2022 06:32-0500 Systolic blood pressure 152 mm[Hg] PA Ashlynphylicia Walkerall PA Work Phone: [facility] 05-03-2022 14:51-0500 Body height 165.1 cm Ashlyn Walkerall Work Phone: [facility] Work Phone: 05-03-2022 14:51-0500 Body mass index (BMI) [Ratio] 57.24 kg/m2 Ashlynphylicia Titusenhall Work Phone: [facility] Work Phone: 05-03-2022 14:51-0500 Body surface area Derived from formula 2.49 m2 Ashlyn Titusenhall Work Phone: [facility] Work Phone: 05-03-2022 14:51-0500 Body weight 156.04 kg Ashlyn Walkerall Work Phone: [facility] Work Phone: 05-03-2022 14:51-0500 Diastolic blood pressure 82 mm[Hg] Ashlyn Gates Work Phone: [facility] Work Phone: 05-03-2022 14:51-0500 Heart rate 88 /min Ashlyn Gates Work Phone: [facility] Work Phone: 05-03-2022 14:51-0500 Systolic blood pressure 138 mm[Hg] Ashlyn Gates Work Phone: [facility] Work Phone: 04-26-2022 16:01-0500 Diastolic blood pressure 86 mm[Hg] Fabi Giraldo [employer] Work Phone: [facility] 04-26-2022 16:01-0500 Systolic blood pressure 136 mm[Hg] Fabi Giraldo [employer] Work Phone: [facility] 04-26-2022 15:37-0500 Body height 165.1 cm Fabi Giraldo [employer] Work Phone: [facility] 04-26-2022 15:37-0500 Body mass index (BMI) [Ratio] 57.94 kg/m2 Fabi Giraldo [employer] Work Phone: [facility] 04-26-2022 15:37-0500 Body weight 157.94 kg Fabi Giraldo [employer] Work Phone: [facility] 04-26-2022 15:37-0500 Heart rate 91 /min Fabi Giraldo [employer] [facility] 04-11-2022 13:09-0500 Body height 165 cm Ashyln Gates Other Phone: [facility] 04-11-2022 13:09-0500 Body temperature 96.98 [degF] Ashlyn Gates Other Phone: [facility] 04-11-2022 13:09-0500 Diastolic blood pressure 101 mm[Hg] Ashlyn Titusenhall Other Phone: [facility] 04-11-2022 13:09-0500 Heart rate 96 /min Ashlyn Titusenhall Other Phone: [facility] 04-11-2022 13:09-0500 Respiratory rate 16 /min Ashlyn Titusenhall Other Phone: [facility] 04-11-2022 13:09-0500 SaO2% (BldA) [Mass fraction] 97 % Ashlyn Walkerall Other Phone: [facility] 04-11-2022 13:09-0500 Systolic blood pressure 148 mm[Hg] Ashlyn Titusenhall Other Phone: [facility] 03-24-2022 15:34-0400 Diastolic blood pressure 82 mm[Hg] Fabi Giraldo [employer] Work Phone: [employer] [facility] 03-24-2022 15:34-0400 Systolic blood pressure 138 mm[Hg] Fabi Dentt [employer] [facility] 03-24-2022 15:11-0400 Body height 165.1 cm Fabi Giraldo [employer] Work Phone: [facility] 03-24-2022 15:11-0400 Body mass index (BMI) [Ratio] 57.41 kg/m2 Fabi Giraldo [employer] Work Phone: [employer] 03-24-2022 15:11-0400 Body weight 156.49 kg Fabi Giraldo [employer] Work Phone: [facility] 03-24-2022 15:11-0400 Heart rate 105 /min Fabi Giraldo [employer] Work Phone: [facility] 02-24-2022 15:42-0400 Body height 165.1 cm Fabi Irizarryhart [employer] Work Phone: [facility] 02-24-2022 15:42-0400 Body mass index (BMI) [Ratio] 53.98 kg/m2 Fabi Giraldo [employer] Work Phone: [facility] [employer] [facility] 02-24-2022 15:42-0400 Body weight 147.15 kg Fabianne IrizarryKristal [employer] Work Phone: [facility] 02-24-2022 15:42-0400 Diastolic blood pressure 89 mm[Hg] Fabi Kristal [employer] Work Phone: [facility] 02-24-2022 15:42-0400 Heart rate 87 /min Fabi Kristal [employer] Work Phone: [facility] 02-24-2022 15:42-0400 Systolic blood pressure 126 mm[Hg] Fabi Kristal [employer] Work Phone: [facility] 01-26-2022 15:13-0400 Body height 165.1 cm Fabianne IrizarryKristal [employer] Work Phone: [facility] 01-26-2022 15:13-0400 Body mass index (BMI) [Ratio] 56.38 kg/m2 Fabi Kristal [employer] Work Phone: [facility] 01-26-2022 15:13-0400 Body weight 153.68 kg Fabi Kristal [employer] [facility] 01-26-2022 15:13-0400 Diastolic blood pressure 84 mm[Hg] Fabi Dentt [employer] Work Phone: [facility] 01-26-2022 15:13-0400 Heart rate 93 /min Fabi Giraldo [employer] Work Phone: [facility] 01-26-2022 15:13-0400 Systolic blood pressure 136 mm[Hg] Fabi Kristal [employer] Work Phone: [facility] 01-25-2022 08:52-0400 Body mass index (BMI) [Ratio] 57.24 kg/m2 Ashlyn Gates Work Phone: [facility] Work Phone: 01-25-2022 08:52-0400 Body surface area Derived from formula 2.49 m2 Ashlyn Gates Work Phone: [facility] Work Phone: 01-25-2022 08:52-0400 Body weight 156.04 kg Ashlyn Gates Work Phone: [facility] Work Phone: 01-25-2022 08:52-0400 Diastolic blood pressure 102 mm[Hg] Ashlyn Gates Work Phone: [facility] Work Phone: 01-25-2022 08:52-0400 Heart rate 109 /min Ashlyn Gates Work Phone: [facility] Work Phone: 01-25-2022 08:52-0400 Respiratory rate 16 /min Ashlyn Gates Work Phone: [facility] Work Phone: 01-25-2022 08:52-0400 Systolic blood pressure 154 mm[Hg] Ashlyn Gates Work Phone: [facility] Work Phone: 11-25-2021 15:04-0400 Body height 165.1 cm Fabi Giraldo [employer] Work Phone: [facility] 06-30-2022 15:04-0400 Body mass index (BMI) [Ratio] 57.94 kg/m2 Fabi Giraldo APRN-METAL WEATHER STRIPPER Work Phone: [facility] 11-25-2021 15:04-0400 Body weight 157.94 kg Fabi Giraldo APRN-METAL WEATHER STRIPPER Work Phone: [facility] 11-25-2021 15:04-0400 Diastolic blood pressure 83 mm[Hg] Fabi Giraldo [employer] Work Phone: [facility] 11-25-2021 15:04-0400 Heart rate 96 /min Fabi Giraldo APRN-METAL WEATHER STRIPPER Work Phone: [facility] 11-25-2021 15:04-0400 SaO2% (BldA) [Mass fraction] 98 % Fabi Giraldo APRN-METAL WEATHER STRIPPER Work Phone: [facility] 11-25-2021 15:04-0400 Systolic blood pressure 132 mm[Hg] Fabi Giraldo APRN-METAL WEATHER STRIPPER Work Phone: [facility] 11-02-2021 14:53-0400 Body height 165.1 cm Ashlyn Gates Work Phone: [facility] Work Phone: 11-02-2021 14:53-0400 Body mass index (BMI) [Ratio] 58.24 kg/m2 Ashlyn Gates Work Phone: [facility] Work Phone: 11-02-2021 14:53-0400 Body surface area Derived from formula 2.51 m2 Ashlyn Gatse Work Phone: [facility] Work Phone: 11-02-2021 14:53-0400 Body weight 158.76 kg Ashlyn Gates Work Phone: [facility] Work Phone: 11-02-2021 14:53-0400 Diastolic blood pressure 78 mm[Hg] Ashlyn Gates Work Phone: [facility] Work Phone: 11-02-2021 14:53-0400 Heart rate 88 /min Ashlyn Gates Work Phone: [facility] Work Phone: 11-02-2021 14:53-0400 SaO2% (BldA) [Mass fraction] 98 % Ashlyn Gates Work Phone: [facility] Work Phone: 11-02-2021 14:53-0400 Systolic blood pressure 118 mm[Hg] Ashlyn Gates Work Phone: [facility] Work Phone: 10-27-2021 15:07-0400 Body height 165.1 cm Fabi Giraldo APRN-METAL WEATHER STRIPPER Work Phone: [facility] 10-27-2021 15:07-0400 Body mass index (BMI) [Ratio] 58.74 kg/m2 Fabi Giraldo [employer] Work Phone: [facility] 10-27-2021 15:07-0400 Body weight 160.12 kg Fabi Giraldo [employer] Work Phone: [facility] 10-27-2021 15:07-0400 Diastolic blood pressure 86 mm[Hg] Fabi Giraldo [employer] Work Phone: [facility] 10-27-2021 15:07-0400 Heart rate 98 /min Fabi Giraldo [employer] Work Phone: [facility] 10-27-2021 15:07-0400 Systolic blood pressure 127 mm[Hg] Fabi Giraldo [employer] Work Phone: [facility] 09-29-2021 14:58-0400 Body height 165.1 cm Fabi Giraldo [employer] Work Phone: [facility] 09-29-2021 14:58-0400 Body mass index (BMI) [Ratio] 58.24 kg/m2 Fabi Irizarryhart [employer] Work Phone: [facility] 09-29-2021 14:58-0400 Body weight 158.76 kg Fabi Kristal [employer] Work Phone: [facility] 09-29-2021 14:58-0400 Diastolic blood pressure 84 mm[Hg] Fabi Irizarryhart [employer] Work Phone: [facility] 09-29-2021 14:58-0400 Heart rate 87 /min Fabi Irizarryhart [employer] Work Phone: [facility] 09-29-2021 14:58-0400 SaO2% (BldA) [Mass fraction] 100 % Fabianne IrizarryKristal [employer] Work Phone: [facility] 09-29-2021 14:58-0400 Systolic blood pressure 127 mm[Hg] Fabi Kristal [employer] Work Phone: [facility] 09-02-2021 15:11-0400 Diastolic blood pressure 88 mm[Hg] Fabi Irizarryhart [employer] Work Phone: [facility] 09-02-2021 15:11-0400 Systolic blood pressure 132 mm[Hg] Fabi Giraldo [employer] Work Phone: [facility] 09-02-2021 14:54-0400 Body height 165.1 cm Fabi Giraldo [employer] Work Phone: [facility] 09-02-2021 14:54-0400 Body mass index (BMI) [Ratio] 58.04 kg/m2 Fabi Giraldo [employer] Work Phone: [facility] 09-02-2021 14:54-0400 Body weight 158.22 kg Fabi Kristal [employer] [facility] 09-02-2021 14:54-0400 Heart rate 84 /min Fabi Kristal [employer] Work Phone: [facility] 09-02-2021 14:54-0400 SaO2% (BldA) [Mass fraction] 99 % Fabi Giraldo [employer] Work Phone: [facility] 08-03-2021 15:00-0500 Body height 165.1 cm Fabi Giraldo [employer] Work Phone: [facility] 08-03-2021 15:00-0500 Body mass index (BMI) [Ratio] 58.54 kg/m2 Fabi Giraldo [employer] [facility] 08-03-2021 15:00-0500 Body weight 159.57 kg Fabi Giraldo [employer] Work Phone: [facility] 08-03-2021 15:00-0500 Diastolic blood pressure 84 mm[Hg] Fabi Giraldo [employer] Work Phone: [facility] 08-03-2021 15:00-0500 Heart rate 102 /min Fabi Kristal [employer] [facility] 08-03-2021 15:00-0500 Systolic blood pressure 126 mm[Hg] Fabi Giraldo [employer] [facility] 07-06-2021 14:55-0500 Body height 165.1 cm Fabi Giraldo [employer] Work Phone[facility] 07-06-2021 14:55-0500 Body mass index (BMI) [Ratio] 58.78 kg/m2 Fabi Giraldo [employer] [facility] 07-06-2021 14:55-0500 Body temperature 97.7 [degF] Fabi Giraldo [employer]PER Work Phone: [facility] 07-06-2021 14:55-0500 Body weight 160.21 kg Fabi Giraldo [employer] Work Phone: [facility] 07-06-2021 14:55-0500 Diastolic blood pressure 87 mm[Hg] Fabi Giraldo [employer]PER [facility] 07-06-2021 14:55-0500 Heart rate 90 /min Fabi Giraldo [employer]PER Work Phone: [facility] 07-06-2021 14:55-0500 Respiratory rate 16 /min Fabi Giraldo [employer]PER Work Phone: [facility] 07-06-2021 14:55-0500 SaO2% (BldA) [Mass fraction] 99 % Fabi Giraldo [employer] Work Phone: [facility] 07-06-2021 14:55-0500 Systolic blood pressure 128 mm[Hg] Fabi Giraldo [employer] [facility] 07-05-2021 15:06-0500 Body height 165.1 cm Ashlyn Gates Work Phone: [facility] Work Phone: 07-05-2021 15:06-0500 Body mass index (BMI) [Ratio] 58.58 kg/m2 Ashlyn Gates Work Phone: [facility] Work Phone: 07-05-2021 15:06-0500 Body surface area Derived from formula 2.52 m2 Ashlyn Gates Work Phone: [facility] Work Phone: 07-05-2021 15:06-0500 Body temperature 97.5 [degF] Ashlyn Gates Work Phone: [facility] Work Phone: 07-05-2021 15:06-0500 Body weight 159.67 kg Ashlyn Gates Work Phone: [facility] Work Phone: 07-05-2021 15:06-0500 Diastolic blood pressure 86 mm[Hg] Ashlyn Gates Work Phone: [facility] Work Phone: 07-05-2021 15:06-0500 Heart rate 88 /min Ashlyn Gates Work Phone: [facility] Work Phone: 07-05-2021 15:06-0500 Respiratory rate 16 /min Ashlyn Gates Work Phone: [facility] Work Phone: 07-05-2021 15:06-0500 Systolic blood pressure 132 mm[Hg] Ashlyn Gates Work Phone: [facility] Work Phone: 04-30-2021 14:04-0500 Body height 165.1 cm Fabi Giraldo [employer] Work Phone: [employer] 04-30-2021 14:04-0500 Body mass index (BMI) [Ratio] 58.71 kg/m2 Fabi Giraldo [employer]PER Work Phone: [facility] 04-30-2021 14:04-0500 Body weight 160.03 kg Fabi Giraldo [employer]PER Work Phone: [facility] 04-30-2021 14:04-0500 Diastolic blood pressure 91 mm[Hg] Fabi Giraldo [employer]PER Work Phone: [facility] 12-03-2021 14:04-0500 Heart rate 87 /min Fabi Giraldo [employer]ER [employer]PER Work Phone: [facility] 04-30-2021 14:04-0500 Systolic blood pressure 142 mm[Hg] Fabi Giraldo [employer] WE[employer]ER [employer]IPPER Work Phone: [facility] 03-25-2021 15:29-0400 Body height 165.1 cm Ashlyn Gates Work Phone: [facility] Work Phone: 03-25-2021 15:29-0400 Body mass index (BMI) [Ratio] 59.57 kg/m2 Ashlyn Gates Work Phone: [facility] Work Phone: 03-25-2021 15:29-0400 Body surface area Derived from formula 2.53 m2 Ashlyn Gates Work Phone: [facility] Work Phone: 03-25-2021 15:29-0400 Body weight 162.38 kg Ashlyn Gates Work Phone: [facility] Work Phone: 03-25-2021 15:29-0400 Diastolic blood pressure 78 mm[Hg] Ashlyn Gates Work Phone: [facility] Work Phone: 03-25-2021 15:29-0400 Heart rate 84 /min Ashlyn Walkerall Work Phone: [facility] Work Phone: 03-25-2021 15:29-0400 Systolic blood pressure 136 mm[Hg] Ashlyn Walkerall Work Phone: [facility] Work Phone: 12-29-2020 15:15-0400 Body temperature 97.6 [degF] Ashlyn Titusenhall Work Phone: [facility] Work Phone: 12-29-2020 15:15-0400 Body weight 163.93 kg Ashlyn Gates Work Phone: [facility] Work Phone: 12-29-2020 15:15-0400 Diastolic blood pressure 81 mm[Hg] Ashlyn Gates Work Phone: [facility] Work Phone: 12-29-2020 15:15-0400 Heart rate 101 /min Ashlyn Gates Work Phone: [facility] Work Phone: 12-29-2020 15:15-0400 Respiratory rate 16 /min Ashlyn Gates Work Phone: [facility] Work Phone: 12-29-2020 15:15-0400 Systolic blood pressure 136 mm[Hg] Ashlyn Gates Work Phone: [facility] Work Phone: 12-22-2020 15:37-0400 Body height 165.1 cm Fabi Giraldo APRN-METAL WEATHER STRIPPER Work Phone: [employer] [facility] 12-22-2020 15:37-0400 Body mass index (BMI) [Ratio] 59.34 kg/m2 Fabi Giraldo [employer]PER Work Phone: [facility] 12-22-2020 15:37-0400 Body weight 161.75 kg Fabi Giraldo [employer]PER Work Phone: [facility] 12-22-2020 15:37-0400 Diastolic blood pressure 91 mm[Hg] Fabi Giraldo [employer]ER [employer]PER Work Phone: [facility] 12-22-2020 15:37-0400 Heart rate 90 /min Fabi Giraldo [employer]PER Work Phone: [facility] 12-22-2020 15:37-0400 SaO2% (BldA) [Mass fraction] 98 % Fabi Giraldo [employer]ER [employer]PER Work Phone: [facility] 12-22-2020 15:37-0400 Systolic blood pressure 143 mm[Hg] Fabi Giraldo [employer]ER [employer]IPPER Work Phone: [facility] 12-08-2020 15:28-0400 Body height 165.1 cm Ashlyn Gates Work Phone: [facility] Work Phone: 12-08-2020 15:28-0400 Body mass index (BMI) [Ratio] 59.41 kg/m2 Ashlyn Gates Work Phone: [facility] Work Phone: 12-08-2020 15:28-0400 Body surface area Derived from formula 2.53 m2 Ashlyn Gates Work Phone: [facility] Work Phone: 12-08-2020 15:28-0400 Body temperature 98.2 [degF] Ashlyn Gates Work Phone: [facility] Work Phone: 12-08-2020 15:28-0400 Body weight 161.94 kg Ashlyn Gates Work Phone: [facility] Work Phone: 12-08-2020 15:28-0400 Diastolic blood pressure 86 mm[Hg] Ashlyn Gates Work Phone: [facility] Work Phone: 12-08-2020 15:28-0400 Heart rate 88 /min Ashlyn Diana Yajaira Work Phone: [facility] Work Phone: 12-08-2020 15:28-0400 Respiratory rate 12 /min Ashlyn Gates Work Phone: [facility] Work Phone: 12-08-2020 15:28-0400 Systolic blood pressure 147 mm[Hg] Ashlyn Gates Work Phone: [facility] Work Phone: 12-02-2020 16:48-0400 Body height 165.1 cm Zenia Arnold PA-C Work Phone: [employer] [facility] 12-02-2020 16:48-0400 Body mass index (BMI) [Ratio] 58.91 kg/m2 Zenia Arnold PA-C Work Phone: [employer] [facility] 12-02-2020 16:48-0400 Body temperature 96.21 [degF] Mitchell Arnold PA-C Work Phone: [employer] [facility] 12-02-2020 16:48-0400 Body weight 160.57 kg Mitchell Arnold PA-C Work Phone: [facility] 12-02-2020 16:48-0400 Diastolic blood pressure 91 mm[Hg] Zenia Arnold PA-C Work Phone: [facility] 12-02-2020 16:48-0400 Heart rate 97 /min Mitchell Arnold PA-C Work Phone: [facility] 12-02-2020 16:48-0400 Respiratory rate 18 /min Zenia Arnold PA-C Work Phone: [facility] 12-02-2020 16:48-0400 SaO2% (BldA) [Mass fraction] 99 % Mitchell Arnold PA-C Work Phone: [facility] 12-02-2020 16:48-0400 Systolic blood pressure 152 mm[Hg] Mitchell Arnold PA-C Work Phone: [facility] 11-03-2020 [id number] Body height 165.1 cm Zenia Arnold PA-C Work Phone: [facility] 11-03-2020 14:26-0400 Body mass index (BMI) [Ratio] 59.34 kg/m2 Mitchell Arnold PA-C Work Phone: [facility] 11-03-2020 14:26-0400 Body temperature 98.1 [degF] Zenia Arnold PA-C Work Phone: [facility] 11-03-2020 14:26-040 Body weight 161.75 kg Mitchell Arnold PA-C Work Phone: [facility] 11-03-2020 14:26-0400 Diastolic blood pressure 98 mm[Hg] Zenia Arnold PA-C Work Phone: [facility] 11-03-2020 14:26-0400 Heart rate 104 /min Mitchell Arnold PA-C Work Phone: [facility] 11-03-2020 14:26-0400 Respiratory rate 18 /min Zenia Arnold PA-C Work Phone: [facility] 11-03-2020 14:26-0400 SaO2% (BldA) [Mass fraction] 99 % Mitchell Arnold PA-C Work Phone: [facility] 11-03-2020 14:26-0400 Systolic blood pressure 146 mm[Hg] Mitchell Arnold PA-C Work Phone: [facility] 10-02-2020 14:41-0400 Diastolic blood pressure 86 mm[Hg] Charlotte Farah MD Work Phone: [facility] 10-02-2020 14:41-0400 Systolic blood pressure 140 mm[Hg] Charlotte Farah MD Work Phone: [facility] 10-02-2020 14:13-0400 Body height 165.1 cm Charlotte Farah MD Work Phone: [facility] 10-02-2020 14:13-0400 Body mass index (BMI) [Ratio] 60.21 kg/m2 Charlotte Farah MD Work Phone: [facility] 10-02-2020 14:13-0400 Body weight 164.11 kg Charlotte Farah MD Work Phone: [facility] 10-02-2020 14:13-0400 Heart rate 92 /min Charlotte Farah MD Work Phone: [facility] 09-04-2020 15:56-0400 BP Diastolic 86 mm[Hg] [facility] 09-04-2020 15:56-0400 BP Systolic 142 mm[Hg] [facility] 09-04-2020 15:39-0400 BMI (Body Mass Index) 61.17 kg/m2 [facility] 09-04-2020 15:39-0400 Body weight 166.74 kg [facility] 09-04-2020 15:39-0400 Height 165.1 cm [facility] 09-04-2020 15:39-0400 Pulse (Heart Rate) 90 /min [facility] 08-06-2020 15:33-0500 BMI (Body Mass Index) 62.57 kg/m2 [facility] 08-06-2020 15:33-0500 Body weight 170.55 kg [facility] 08-06-2020 15:33-0500 BP Diastolic 101 mm[Hg] [facility] 08-06-2020 15:33-0500 BP Systolic 155 mm[Hg] [facility] 08-06-2020 15:33-0500 Height 165.1 cm [facility] 08-06-2020 15:33-0500 Pulse (Heart Rate) 96 /min [facility] 05-07-2020 17:21-0500 BMI (Body Mass Index) 62.24 kg/m2 Christopher Keenan [facility] Work Phone: 05-07-2020 17:21-0500 Body weight 169.65 kg Christopher Keenan [facility] Work Phone: 05-07-2020 17:21-0500 BP Diastolic 102 mm[Hg] Christopher Keenan [facility] Work Phone: 05-07-2020 17:21-0500 BP Systolic 150 mm[Hg] Christopher Keenan [facility] Work Phone: 05-07-2020 17:21-0500 BSA (Body Surface Area) 2.58 m2 Christopher Keenan [facility] Work Phone: 05-07-2020 17:21-0500 Height 165.1 cm Christopher Keenan [facility] Work Phone: 05-07-2020 17:21-0500 Pulse (Heart Rate) 80 /min Christopher Keenan [facility] Work Phone: 09-02-2019 17:30-0400 BMI (Body Mass Index) 56.41 kg/m2 Christopher Keenan [facility] Work Phone: 09-02-2019 17:30-0400 Body Temperature 98.1 [degF] Christopher Keenan [facility] Work Phone: 09-02-2019 17:30-0400 Body weight 153.77 kg Christopher Keenan [facility] Work Phone: 09-02-2019 17:30-0400 BP Diastolic 89 mm[Hg] Christopher Keenan [facility] Work Phone: 09-02-2019 17:30-0400 BP Systolic 148 mm[Hg] Christopher Keenan [facility] Work Phone: 09-02-2019 17:30-0400 BSA (Body Surface Area) 2.48 m2 Christopher Keenan [facility] Work Phone: 09-02-2019 17:30-0400 Height 165.1 cm Christopher Keenan [facility] Work Phone: 09-02-2019 17:30-0400 Pulse (Heart Rate) 108 /min Christopher Keenan [facility] Work Phone: 09-02-2019 17:30-0400 Respiratory Rate 16 /min Christopher Keenan [facility] Work Phone: 03-25-2019 12:23-0400 BMI (Body Mass Index) 56.41 kg/m2 Christopher Keenan [facility] Work Phone: 03-25-2019 12:23-0400 Body weight 153.77 kg Christopher Keenan [facility] Work Phone: 03-25-2019 12:23-0400 BP Diastolic 82 mm[Hg] Christopher Keenan [facility] Work Phone: Comment on above: Location: LUE; Position: Sitting 03-25-2019 12:23-0400 BP Systolic 130 mm[Hg] Christopher Keenan [facility] Work Phone: Comment on above: Location: LUE; Position: Sitting 03-25-2019 12:23-0400 BSA (Body Surface Area) 2.48 m2 Christopher Keenan [facility] Work Phone: 03-25-2019 12:23-0400 Height 165.1 cm Christopher Keenan [facility] Work Phone: 03-25-2019 12:23-0400 Pulse (Heart Rate) 92 /min Christopher Keenan [facility] Work Phone: 03-04-2019 17:31-0400 BMI (Body Mass Index) 57.52 kg/m2 Christopher Jonesumbar [facility] Work Phone: 03-04-2019 17:31-0400 Body weight 156.78 kg Christopher Jonesumbar [facility] Work Phone: 03-04-2019 17:31-0400 BP Diastolic 90 mm[Hg] Christopher Jonesumbar [facility] Work Phone: 03-04-2019 17:31-0400 BP Systolic 139 mm[Hg] Christopher Jonesumbar [facility] Work Phone: 03-04-2019 17:31-0400 BSA (Body Surface Area) 2.5 m2 Christopher Jonesumbar [facility] Work Phone: 03-04-2019 17:31-0400 Height 165.1 cm Christopher Jonesumbar [facility] Work Phone: 03-04-2019 17:31-0400 Pulse (Heart Rate) 73 /min Christopher Jonesumbar [facility] Work Phone: 03-04-2019 17:31-0400 Respiratory Rate 16 /min Christopher [facility]umbar [facility] Work Phone: Encounters Encounter Date Encounter Type Care Provider Facility Start: 10-30-2024 End: 10-30-2024 Office outpatient visit 25 minutes Ashlyn Gates PA-C Work Phone: [facility] Comment on above: BEST (obstructive sle ep apnea) (Primary Dx); JESSICA (generalized anxiety disorder); Benign essential hypertension; Paroxysmal atrial fibrillation (Multi); Class 3 severe obesity due to excess calories with serious comorbidity and body mass index (BMI) of 60.0 to 69.9 in adult Start: 10-30-2024 End: 10-30-2024 ambulatory ASHLYN Ortiz [facility] Start: 09-23-2024 End: 09-23-2024 ambulatory Ashlyn LOPEZ Facility[place] Start: 09-18-2024 ambulatory Ashlyn LOPEZ Facility:[facility] Start: 09-11-2024 End: 09-11-2024 Office outpatient visit 25 minutes Ashlyn Gates PA-C Work Phone: [facility] Comment on above: BEST (obstructive sle ep apnea) (Primary Dx); Depression, major, single episode, mild (CMS-HCC); JESSICA (generalized anxiety disorder); Paroxysmal atrial fibrillation (Multi); Benign essential hypertension; Class 3 severe obesity due to excess calories with serious comorbidity and body mass index (BMI) of 60.0 to 69.9 in adult; Binge eating disorder, unspecified severity Start: 09-11-2024 End: 09-11-2024 ambulatory ASHLYN Diana [facility] Start: 09-03-2024 End: 09-04-2024 ambulatory [facility] Start: 08-15-2024 End: 08-15-[address] Chucky Thakkar MD -[facility] Work Phone: Start: 08-15-2024 End: 08-15-2024 ambulatory Chucky Thakkar Facility[place] Start: 08-07-2024 End: 08-07-[address] Danial Hernández MD -[facility] Work Phone: Start: 08-07-2024 End: 08-07-2024 ambulatory Ashlyn LOPEZ Work Phone: [facility] Work Phone: Start: 08-07-2024 End: 08-07-2024 Office outpatient visit 25 minutes Fabi PERKINS Work Phone: [facility] Comment on above: BMI 60.0-69.9, adult (Primary Dx); Binge eating disorder, unspecified severity; Atrial fibrillation, unspecified type; Benign essential hypertension; Impaired glucose tolerance Start: 08-07-2024 ambulatory ASHLYN GATES [facility] Start: 08-07-2024 End: 08-07-2024 ambulatory Ashlyn LOPEZ Facility:[facility] Start: 08-02-2024 End: 08-02-[address] Danial Hernández MD -[facility] Work Phone: Start: 08-02-2024 End: 08-02-2024 ambulatory Ashlyn LOPEZ Facility:[facility] Start: 08-01-2024 End: 08-01-2024 Emergency department patient visit Dr. Jose Ramon Castro DO -Emergency Department Work Phone: Start: 07-30-2024 End: 07-30-2024 Transitional care manage srvc 14 day discharge Desiree Sin MD Work Phone: [facility] Comment on above: Paroxysmal atrial fi brillation (Multi) (Primary Dx); Anxiety; Snoring; Family history of sleep apnea; Morbid obesity with BMI of 60.0-69.9, adult (Multi); Glucose intolerance (impaired glucose tolerance); Benign essential hypertension; Palpitations Start: 07-30-2024 End: 07-30-2024 ambulatory [facility] [place] Start: 07-24-2024 Non-patient / Non-visit Dr. Nirmala Arenas DO -[facility] Work Phone: Start: 07-24-2024 Non-patient / Non-visit Dr. Paige Hernández MD -[facility] Start: 07-23-2024 ambulatory Wilfrid Lopez ty:[facility] Start: 07-23-2024 End: 07-24-2024 Evaluation and management of inpatient Dr. Nirmala Arenas DO -[facility] Work Phone: Start: 07-23-2024 Non-patient / Non-visit Dr. Malrin reyes MD -[facility] Work Phone: Start: 07-23-2024 ambulatory Ashlyn LOPEZ Facility:[facility] Start: 07-23-2024 Non-patient / Non-visit Dr. Carmenza Craig MD -[facility] Start: 07-22-2024 ambulatory Wilfrid Lopez ty:[facility] Start: 07-22-2024 Non-patient / Non-visit Dr. Sindi Hernandez [facility] Work Phone: Start: 07-02-2024 End: 07-02-2024 ambulatory [facility] Amb[facility] Start: 06-19-2024 End: 06-19-2024 Office outpatient visit 25 minutes Ashlyn LOPEZ-C Work Phone: [facility] Comment on above: Glucose intolerance (impaired glucose tolerance) (Primary Dx); Low vitamin B12 level; Benign essential hypertension; Hypercholesterolemia; Low ferritin; Class 3 severe obesity due to excess calories with serious comorbidity and body mass index (BMI) of 60.0 to 69.9 in adult; Depression, major, single episode, mild ([facility]) Start: 06-19-2024 End: 06-19-2024 ambulatory [facility] Start: 06-17-2024 End: 06-17-2024 Patient encounter procedure Ashlyn LOPEZ -Laboratory Work Phone: Start: 06-17-2024 End: 06-17-2024 ambulatory Ashlyn LOPEZ Facility:[facility] Start: 05-17-2024 End: 05-17-2024 Office outpatient visit 15 minutes Fabi Giraldo [employer] Work Phone: [facility] Comment on above: Binge eating disorde r, unspecified severity Start: 05-17-2024 [facility] Start: 04-10-2024 End: 04-10-2024 Office outpatient visit 15 minutes Fabi Giraldo [employer] Work Phone: [facility] Comment on above: Binge eating disorde r, unspecified severity (Primary Dx) Start: 04-10-2024 [facility] Start: 03-07-2024 End: 03-07-2024 Office outpatient visit 15 minutes Fabi Giraldo [employer] Work Phone: [facility] Comment on above: Binge eating disorde r, unspecified severity (Primary Dx); Benign essential hypertension Start: 03-07-2024 ambulatory [facility] Start: 01-21-2024 End: 01-21-2024 [facility] Start: 12-18-2023 End: 12-18-2023 Office outpatient visit 25 minutes Ashlyn Gates PA-C Work Phone: [facility] Comment on above: Benign essential hyp ertension (Primary Dx); Low vitamin B12 level; Hypercholesterolemia; Glucose intolerance (impaired glucose tolerance); Low ferritin; 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 (Multi); Depression, major, single episode, mild (CMS-HCC); JESSICA (generalized anxiety disorder) Start: 12-18-2023 End: 12-18-2023 ambulatory [facility] Start: 12-14-2023 End: 12-14-2023 ambulatory Ashlyn LOPEZ Facility:[facility] Start: 12-08-2023 End: 12-08-2023 Office outpatient visit 15 minutes Fabi Giraldo [employer] Work Phone: [facility] Comment on above: Binge eating disorde r (Primary Dx); Benign essential hypertension Start: 12-08-2023 ambulatory [facility] Start: 09-07-2023 End: 09-07-2023 Office outpatient visit 15 minutes Fabi Giraldo [employer] Work Phone: [facility] Comment on above: Binge eating disorde r Start: 09-07-2023 ambulatory SELF SELF [facility] Start: 08-12-2023 End: 08-12-2023 Patient encounter procedure Patricia Ramey [employer] Work Phone: [facility] Comment on above: Acute viral syndrome (Primary Dx) Start: 05-25-2023 End: 05-25-2023 Office outpatient visit 15 minutes Fabi Giraldo [employer] Work Phone: [facility] Comment on above: Binge eating disorde r Start: 05-23-2023 End: 05-23-2023 Office outpatient visit 25 minutes Ashlyn Gates PA-C Work Phone: [facility] Comment on above: Benign essential hyp ertension (Primary Dx); Hypercholesterolemia; 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 (CMS/HCC); Glucose intolerance (impaired glucose tolerance); Low vitamin B12 level; Low ferritin; Depression, major, single episode, mild (CMS/HCC); JESSICA (generalized anxiety disorder); Fibromyalgia; Decreased libido Start: 05-17-2023 End: 05-17-2023 ambulatory [facility] Work Phone: Start: 05-17-2023 End: 05-17-2023 Patient encounter procedure [facility] Work Phone: Start: 02-15-2023 End: 02-15-2023 Office outpatient visit 15 minutes Fabi Giradlo [employer] Work Phone: [facility] Comment on above: Binge eating disorde r (Primary Dx); Benign essential hypertension Start: 01-10-2023 Patient encounter procedure Ra aroldo Gates Work Phone: [facility] Work Phone: Start: 01-10-2023 ambulatory Ms. Ashlyn lebron Yajaira Facility:[id number] Start: 11-24-2022 End: 11-24-2022 Office outpatient visit 15 minutes Fabi Giraldo [employer] Work Phone: [facility] Comment on above: Binge eating disorde r (Primary Dx); Benign essential hypertension Start: 11-01-2022 End: 11-01-2022 Office outpatient visit 25 minutes Ashlyn Gates PA-C Work Phone: [facility] Comment on above: Hypercholesterolemia (Primary Dx); Dyspepsia; Benign essential hypertension; Glucose intolerance (impaired glucose tolerance); Low vitamin B12 level; Low ferritin; Fibromyalgia; Depression, major, single episode, mild (CMS/HCC); JESSICA (generalized anxiety disorder); 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 ([facility]) Start: 10-26-2022 End: 10-26-2022 Office outpatient visit 15 minutes Fabi Giraldo [employer] Work Phone: [facility] Comment on above: Binge eating disorde r (Primary Dx); Benign essential hypertension Start: 10-18-2022 End: 10-18-2022 Emergency department patient visit Ms. Ashlyn Gates Facility:[id number] Start: 09-16-2022 End: 09-16-2022 ambulatory [facility] Work Phone: Start: 09-16-2022 End: 09-16-2022 Patient encounter procedure [facility] Start: 09-03-2022 End: 09-03-2022 Emergency department patient visit JOHN LOPEZ Work Phone: [facility] Start: 08-30-2022 End: 08-30-2022 Office outpatient visit 15 minutes Fabi Giraldo [employer] Work Phone: [facility] Comment on above: Binge eating disorde r (Primary Dx); Benign essential hypertension Start: 07-26-2022 End: 07-26-2022 Office outpatient visit 15 minutes Fabi Giraldo [employer] Work Phone: [facility] Comment on above: Binge eating disorde r Start: 07-18-2022 ambulatory Ms. Ashlyn Gates Facility:[id number] Start: 06-28-2022 End: 06-28-2022 Office outpatient visit 15 minutes Fabi Giraldo [employer] Work Phone: [facility] Comment on above: Binge eating disorde r (Primary Dx) Start: 05-18-2022 End: 05-18-2022 Patient encounter procedure JOHN LOPEZ Work Phone: [facility] Start: 05-03-2022 ambulatory Ms. ASHLYN Diana GATES Facility:[id number] Start: 05-03-2022 Office outpatient vi sit 25 minutes Ashlyn Gates Work Phone: -[facility] Work Phone: Start: 05-02-2022 End: 05-02-2022 ambulatory [facility] Work Phone: Start: 05-02-2022 End: 05-02-2022 Patient encounter procedure [facility] Start: 04-26-2022 End: 04-26-2022 Office outpatient visit 15 minutes Fabi Giraldo [employer] Work Phone: [facility] Comment on above: Benign essential hyp ertension (Primary Dx); BMI 50.0-59.9, adult Start: 04-11-2022 End: 04-11-2022 Emergency department patient visit [facility] Start: 03-24-2022 End: 03-24-2022 Office outpatient visit 25 minutes Fabi Giraldo [employer] Work Phone: [facility] Comment on above: Benign essential hyp ertension (Primary Dx); Metabolic syndrome; Fatigue, unspecified type Start: 02-24-2022 End: 02-24-2022 Office outpatient visit 15 minutes Fabi Giraldo [employer] Work Phone: [facility] Comment on above: BMI 50.0-59.9, adult Start: 01-26-2022 End: 01-26-2022 Office outpatient visit 15 minutes Fabi Giraldo [employer] Work Phone: [facility] Comment on above: Benign essential hyp ertension (Primary Dx); BMI 50.0-59.9, adult Start: 01-25-2022 Patient encounter procedure Ra aroldo Gates Work Phone: [facility] Work Phone: Start: 01-25-2022 ambulatory Ms. Ashlyn lebron Yajaira Facility:[id number] Start: 11-25-2021 End: 11-25-2021 Office outpatient visit 15 minutes Fabi Giraldo [employer] Work Phone: [facility] Comment on above: Class 3 severe obesi ty with serious comorbidity and body mass index (BMI) of 60.0 to 69.9 in adult, unspecified obesity type Start: 11-04-2021 Encounter for gyneco logical examination (general) (routine) without abnormal findings Ashlyn Ortiz Yajaira Work Phone: [facility] Work Phone: Comment on above: [facility]; Start: 11-02-2021 Office outpatient vi sit 25 minutes Ashlyn Gates Work Phone: [facility] Work Phone: Start: 11-02-2021 ambulatory Ms. ASHLYN Ortiz YAJAIRA Facility:[id number] Start: 10-27-2021 End: 10-27-2021 Office outpatient visit 15 minutes Fabi Giraldo [employer] Work Phone: [facility] Comment on above: Benign essential hyp ertension (Primary Dx); Class 3 severe obesity with serious comorbidity and body mass index (BMI) of 60.0 to 69.9 in adult, unspecified obesity type Start: 09-29-2021 End: 09-29-2021 Office outpatient visit 15 minutes Fabi Giraldo [employer] Work Phone: [facility] Comment on above: Benign essential hyp ertension (Primary Dx); Class 3 severe obesity with serious comorbidity and body mass index (BMI) of 60.0 to 69.9 in adult, unspecified obesity type Start: 09-02-2021 End: 09-02-2021 Office outpatient visit 15 minutes Fabi Giraldo [employer] Work Phone: [facility] Comment on above: Benign essential hyp ertension (Primary Dx); Class 3 severe obesity with serious comorbidity and body mass index (BMI) of 60.0 to 69.9 in adult, unspecified obesity type Start: 08-03-2021 End: 08-03-2021 Office outpatient visit 15 minutes Fabi Giraldo [employer] Work Phone: [facility] Comment on above: Benign essential hyp ertension (Primary Dx); Class 3 severe obesity with serious comorbidity and body mass index (BMI) of 60.0 to 69.9 in adult, unspecified obesity type Start: 07-06-2021 End: 07-06-2021 Office outpatient visit 15 minutes Fabi Giraldo [employer] Work Phone: [facility] Comment on above: Class 3 severe obesi ty with serious comorbidity and body mass index (BMI) of 60.0 to 69.9 in adult, unspecified obesity type Start: 07-05-2021 Patient encounter procedure Ra aroldo Gates Work Phone: [facility] Work Phone: Start: 06-21-2021 AUDIT Ashlyn Tituse [facility] Work Phone: [facility] Work Phone: Start: 06-14-2021 AUDIT Ashlyn Tituse [employer] Work Phone: [facility] Work Phone: Start: 05-11-2021 Office outpatient vi sit 25 minutes Ashlyn Gates Work Phone: [facility] Work Phone: Start: 04-30-2021 End: 04-30-2021 Office outpatient visit 15 minutes Fabi Giraldo [employer] Work Phone: [facility] Comment on above: Class 3 severe obesi ty with serious comorbidity and body mass index (BMI) of 60.0 to 69.9 in adult, unspecified obesity type Start: 03-25-2021 Office outpatient vi sit 15 minutes Ashlyn Gates Work Phone: [facility] Work Phone: Start: 12-29-2020 FUV, Provider: Christopher Keenan, Status: Pen, Time: 3:00 PM Ashlyn Gates Work Phone: [facility] Work Phone: Start: 12-29-2020 Patient encounter procedure Ra aroldo Ortiz Yajaira Work Phone: [facility] Work Phone: Start: 12-28-2020 Chart Update Ashlyn mendes Work Phone: [facility] Work Phone: Start: 12-22-2020 AUDIT Ashlyn mendes Work Phone: [facility] Work Phone: Start: 12-22-2020 End: 12-22-2020 Office outpatient visit 15 minutes Fabi PERKINS Work Phone: [facility] Comment on above: Benign essential hyp ertension (Primary Dx); Class 3 severe obesity with serious comorbidity and body mass index (BMI) of 60.0 to 69.9 in adult, unspecified obesity type Start: 12-11-2020 AUDIT Ashlyn mendes Work Phone: [facility] Work Phone: Start: 12-02-2020 End: 12-02-2020 Office outpatient visit 15 minutes Zenia Falcon PA-C Work Phone: [facility] Comment on above: Acute cystitis with hematuria (Primary Dx) Start: 11-03-2020 End: 11-03-2020 Office outpatient visit 15 minutes Zenia LOPEZ-Emanuel Work Phone: [facility] Comment on above: Acute maxillary sinu sitis, recurrence not specified (Primary Dx) Start: 10-20-2020 Cancer cervix - scre ening done Ashlyn Titusenhall Work Phone: [facility] Work Phone: Comment on above: [facility]; Start: 10-20-2020 Encounter for gyneco logical examination (general) (routine) without abnormal findings Ashlyn Gates Work Phone: [facility] Work Phone: Comment on above: [facility]; Start: 10-02-2020 End: 10-02-2020 Office outpatient visit 15 minutes Charlotte Farah MD Work Phone: [facility] Comment on above: Stress (Primary Dx); Class 3 severe obesity with serious comorbidity and body mass index (BMI) of 60.0 to 69.9 in adult, unspecified obesity type Start: 09-04-2020 End: 09-04-2020 Office outpatient visit 15 minutes Fabi Giraldo Work Phone: [facility] Comment on above: Fatigue, unspecified type (Primary Dx); Class 3 severe obesity with serious comorbidity and body mass index (BMI) of 60.0 to 69.9 in adult, unspecified obesity type Start: 08-06-2020 End: 08-06-2020 Office outpatient new 45 minutes Fabi Giraldo Work Phone: [facility] Comment on above: Benign essential hyp ertension (Primary Dx); Class 3 severe obesity with serious comorbidity and body mass index (BMI) of 60.0 to 69.9 in adult, unspecified obesity type Start: 05-07-2020 Patient encounter procedure Christopher Duttonshannon [facility] Work Phone: Start: 03-26-2020 Patient encounter procedure Christopher Duttonshannon [facility] Work Phone: Start: 03-02-2020 Patient encounter procedure Christopher Duttonshannon [facility] Work Phone: Start: 09-25-2019 Patient encounter procedure Christopher Duttonshannon [facility] Work Phone: Start: 09-02-2019 Patient encounter procedure Christopher Keenan [facility] Work Phone: Start: 03-25-2019 Patient encounter procedure Christopher Duttonshannon [facility] Work Phone: Start: 03-04-2019 Patient encounter procedure Christopher Keenan -[facility] Work Phone: Start: 09-17-2018 End: 09-18-2018 Patient encounter procedure Christopher Keenan Facility:[facility] Start: 09-10-2018 End: 09-11-2018 Patient encounter procedure ASHLYNPHYLICIA GATES Facility:[facility] Start: 09-07-2018 End: 09-08-2018 Patient encounter procedure ASHLYN B YAJAIRA Facility:[facility] Start: 06-25-2018 End: 06-26-2018 Patient encounter procedure ASHLYN B YAJAIRA Facility:[facility] Start: 06-22-2018 End: 06-23-2018 Patient encounter procedure ASHLYN B YAJAIRA Facility:[facility] Start: 06-19-2018 End: 06-20-2018 Patient encounter procedure ASHLYN B YAJAIRA Facility:[facility] Start: 01-24-2018 End: 01-25-2018 Patient encounter procedure Nirali D Portillo Facility:[facility] Start: 01-11-2018 End: 01-12-2018 Patient encounter procedure Nirali D Portillo Facility:[facility] Start: 01-10-2018 End: 01-11-2018 Patient encounter procedure Nirali D Portillo Facility:[facility] Start: 01-02-2018 End: 01-03-2018 Patient encounter procedure Christopher Keenan Facility:[facility] Start: 11-28-2017 End: 11-29-2017 Patient encounter procedure ASHLYN B YAJAIRA Facility:[facility] Start: 11-22-2017 End: 11-23-2017 Patient encounter procedure ASHLYN B YAJAIRA Facility:[facility] Start: 11-20-2017 End: 11-21-2017 Patient encounter procedure Dinonahomi Dean Facility:[facility] Start: 11-17-2017 Patient encounter procedure Regulo Ed Tavallaee Facility:[facility] Start: 11-16-2017 End: 11-16-2017 Patient encounter procedure Regulo Ed Tavallaee Facility:[facility] Start: 11-14-2017 End: 11-15-2017 Patient encounter procedure ASHLYN B YAJAIRA Facility:[facility] Start: 10-24-2017 Patient encounter procedure Melba Urrutiaoney Facility:[facility] Start: 10-06-2017 Patient encounter procedure Melba Chauhan Facility:[facility] Start: 10-02-2017 End: 10-03-2017 Patient encounter procedure Christopher Jonesprince Facility:[facility] Start: 09-28-2017 End: 09-29-2017 Patient encounter procedure ASHLYN GATES Facility:[facility] Procedures Date Procedure Procedure Detail Performing Clinician Start: 08-15-2024 Evaluation of diagnostic study results Ashlyn LOPEZ Work Phone: Start: 08-07-2024 Evaluation of diagnostic study results Ashlyn LOPEZ Work Phone: Start: 08-02-2024 Evaluation of diagnostic study results Ashlyn LOPEZ Work Phone: Start: 08-01-2024 Plain chest X-ray Ashlyn LOPEZ Work Phone: Start: 07-22-2024 CT angiography of chest with contrast Ashlyn LOPEZ Work Phone: Start: 07-22-2024 Plain chest X-ray Ashlyn LOPEZ Work Phone: Start: 08-12-2023 Iaadiadoo influenza Patricia Ramey APRN-[employer] Work Phone: Start: 08-12-2023 SARS-CoV-2 (COVID-19) Ag [Presence] in Respiratory specimen by Rapid immunoassay Patricia Ramey APRN-[employer] Work Phone: Start: 03-24-2021 Lipid 1996 panel - Serum or Plasma Christopher Gates PA-C Work Phone: Start: 12-02-2020 Urnls dip stick/tablet rgnt auto w/o microscopy Zenia Falcon PA-C Work Phone: Start: 11-16-2020 Microscopic observation [Identifier] in Cervix by Cyto stain Ashlyn LUBINC Work Phone: Start: 03-26-2020 Blood count complete auto&auto difrntl wbc Christopher Jonesumbar Start: 03-26-2020 Comprehensive metabolic 2000 panel Brian Jonesumbar Start: 03-26-2020 Cyanocobalamin vitamin b-12 Christopher Jonesumb ar Start: 03-26-2020 Hemoglobin glycosylated a1c Christopher Dutton ar Start: 03-26-2020 Lipid panel Christopher Jonesumbar Start: 09-25-2019 Blood count complete auto&auto difrntl wbc Christopher Duttonar Start: 09-25-2019 Comprehensive metabolic 2000 panel Brian ry Zumbar Start: 09-25-2019 Cyanocobalamin vitamin b-12 Christopher Dutton ar Start: 09-25-2019 Hemoglobin glycosylated a1c Christopher Dutton ar Start: 09-25-2019 Lipid panel Christopher Duttonar Start: 03-25-2019 Assay of free thyroxine Christopher Keenan Start: 03-25-2019 Assay of thyroid stimulating hormone tsh Christopher Keenan Start: 03-25-2019 Comprehensive metabolic 2000 panel Brian Keenna Start: 03-25-2019 Cyanocobalamin vitamin b-12 Christopher Dutton ar Start: 11-16-2017 Colonoscopy Ashlyn Gates Work Phone: Appendectomy Christopher Keenan Colonoscopy Christopher Keenan End: 11-16-2017 Colonoscopy Christopher Keenan Enteric Bacteriology Esophagogastroduodenoscopy Z achary Zumbar Extraction of wisdom tooth Z achary Zumbar Lactoferrin measurement Plan of Treatment Date Care Activity Detail Author Start: 2046 Zoster Vaccines (1 o f 2) Zoster Vaccines (1 of 2) [facility] Start: 08-11-2031 DTaP/Tdap/Td Vaccine s (7 - Td or Tdap) DTaP/Tdap/Td Vaccines (7 - Td or Tdap) [facility] Start: 08-11-2031 Tetanus vaccination [facility]ETANUS [facility] Start: 03-24-2026 Lipid panel Lipid Panel [facility] Start: 12-17-2024 End: 12-17-2024 Patient encounter procedure 12/17/2024 3:00 PM EDT Office Visit [facility] [address] [place] [id number] Ashlyn Gates, PAEulaliaC [address] [place] [address] [facility] Start: 12-17-2024 End: 06-19-2025 CBC W Auto Differential panel - Blood CBC and Auto Differential Lab Routine Benign essential hypertension Glucose intolerance (impaired glucose tolerance) Expected: 12/17/2024 (Approximate), Expires: 06/19/2025 [facility] Service Area Work Phone: Comment on above: Expected: 12/17/2024 (Approximate), Expires: 06/19/2025 Start: 12-17-2024 End: 06-19-2025 Cobalamin (Vitamin B12) [Mass/volume] in Serum or Plasma Vitamin B12 Lab Routine Benign essential hypertension Glucose intolerance (impaired glucose tolerance) Expected: 12/17/2024 (Approximate), Expires: 06/19/2025 [facility] Work Phone: Comment on above: Expected: 12/17/2024 (Approximate), Expires: 06/19/2025 Start: 12-17-2024 End: 06-19-2025 Comprehensive metabolic 2000 panel - Serum or Plasma Comprehensive Metabolic Panel Lab Routine Benign essential hypertension Glucose intolerance (impaired glucose tolerance) Expected: 12/17/2024 (Approximate), Expires: 06/19/2025 [facility] Work Phone: Comment on above: Expected: 12/17/2024 (Approximate), Expires: 06/19/2025 Start: 12-17-2024 End: 06-19-2025 Ferritin [Mass/volume] in Serum or Plasma Ferritin Lab Routine Benign essential hypertension Glucose intolerance (impaired glucose tolerance) Low ferritin Expected: 12/17/2024 (Approximate), Expires: 06/19/2025 [facility] Work Phone: Comment on above: Expected: 12/17/2024 (Approximate), Expires: 06/19/2025 Start: 12-17-2024 End: 06-19-2025 Hemoglobin A1c/Hemoglobin.total in Blood Hemoglobin A1C Lab Routine Benign essential hypertension Glucose intolerance (impaired glucose tolerance) Expected: 12/17/2024 (Approximate), Expires: 06/19/2025 [facility] Work Phone: Comment on above: Expected: 12/17/2024 (Approximate), Expires: 06/19/2025 Start: 12-17-2024 End: 06-19-2025 Iron and Iron binding capacity panel - Serum or Plasma Iron and TIBC Lab Routine Benign essential hypertension Glucose intolerance (impaired glucose tolerance) Low ferritin Expected: 12/17/2024 (Approximate), Expires: 06/19/2025 [facility] Work Phone: Comment on above: Expected: 12/17/2024 (Approximate), Expires: 06/19/2025 Start: 12-17-2024 End: 06-19-2025 Lipid 1996 panel - Serum or Plasma Lipid Panel Lab Routine Benign essential hypertension Hypercholesterolemia Glucose intolerance (impaired glucose tolerance) Expected: 12/17/2024 (Approximate), Expires: 06/19/2025 [facility] Work Phone: Comment on above: Expected: 12/17/2024 (Approximate), Expires: 06/19/2025 Start: 12-17-2024 End: 06-19-2025 Magnesium [Mass/volume] in Serum or Plasma Magnesium Lab Routine Benign essential hypertension Glucose intolerance (impaired glucose tolerance) Expected: 12/17/2024 (Approximate), Expires: 06/19/2025 [facility] Work Phone: Comment on above: Expected: 12/17/2024 (Approximate), Expires: 06/19/2025 Start: 12-17-2024 End: 06-19-2025 Thyrotropin [Units/volume] in Serum or Plasma Thyroid Stimulating Hormone Lab Routine Benign essential hypertension Hypercholesterolemia Glucose intolerance (impaired glucose tolerance) Expected: 12/17/2024 (Approximate), Expires: 06/19/2025 [facility] Work Phone: Comment on above: Expected: 12/17/2024 (Approximate), Expires: 06/19/2025 Start: 12-17-2024 End: 06-19-2025 Thyroxine (T4) free [Mass/volume] in Serum or Plasma Thyroxine, Free Lab Routine Benign essential hypertension Hypercholesterolemia Glucose intolerance (impaired glucose tolerance) Expected: 12/17/2024 (Approximate), Expires: 06/19/2025 [facility] Work Phone: Comment on above: Expected: 12/17/2024 (Approximate), Expires: 06/19/2025 Start: 11-13-2024 End: 11-13-2024 Patient encounter procedure 11/13/2024 9:00 AM EDT Office Visit [facility] [address] [place] [address] Ashlyn Gates PA-C [address] [place] [address] [facility] Start: 08-07-2024 End: 08-07-2024 Patient encounter procedure 08/07/2024 9:00 AM EDT Office Visit [facility] [address] [place] [phone] Fabi Giraldo APRN-METAL WE[employer]ER [employer]IPPER [address] [place] [phone] [facility] Start: 08-01-2024 [facility] Start: 08-01-2024 [facility] Start: 07-30-2024 End: 07-30-2025 In-Center Sleep Study In-Center Sleep Study Sleep Center Routine Anxiety Snoring Family history of sleep apnea Morbid obesity with BMI of 60.0-69.9, adult (Multi) Expected: 07/30/2024, Expires: 07/30/2025 [facility] Service Area Work Phone: Comment on above: Expected: 07/30/2024 , Expires: 07/30/2025 Start: 07-24-2024 [facility] Start: 07-23-2024 Care planning and problem solving actions [facility] Start: 07-23-2024 Admission procedure [facility] Start: 07-23-2024 [facility] Start: 07-23-2024 Care planning and problem solving actions [facility] Start: 07-22-2024 End: 07-23-2024 [facility] Start: 07-22-2024 Following clinical pathway protocol [facility] Start: 07-22-2024 Assessment of risk o f venous thromboembolism [facility] Start: 07-22-2024 Insertion of cathete r into peripheral vein [facility] Start: 07-22-2024 Measuring intake and output [facility] Start: 07-22-2024 Oxygen therapy [facility] Start: 07-22-2024 Providing care according to standard [facility] Start: 07-22-2024 Provision of activit y privileges [facility] Start: 07-22-2024 Referral to assembler fluorescent lights [facility] Start: 07-22-[address] [facility] Start: 07-22-[address] [facility] Start: 06-19-2024 End: 12-17-2024 CBC W Auto Differential panel - Blood CBC and Auto Differential Lab Routine Benign essential hypertension Glucose intolerance (impaired glucose tolerance) Expected: 06/19/2024 (Approximate), Expires: 12/17/2024 [facility] Service Area Work Phone: Comment on above: Expected: 06/19/2024 (Approximate), Expires: 12/17/2024 Start: 06-19-2024 End: 12-17-2024 Cobalamin (Vitamin B12) [Mass/volume] in Serum or Plasma Vitamin B12 Lab Routine Low vitamin B12 level Benign essential hypertension Glucose intolerance (impaired glucose tolerance) Expected: 06/19/2024 (Approximate), Expires: 12/17/2024 [facility] Work Phone: Comment on above: Expected: 06/19/2024 (Approximate), Expires: 12/17/2024 Start: 06-19-2024 End: 12-17-2024 Comprehensive metabolic 2000 panel - Serum or Plasma Comprehensive Metabolic Panel Lab Routine Benign essential hypertension Glucose intolerance (impaired glucose tolerance) Expected: 06/19/2024 (Approximate), Expires: 12/17/2024 [facility] Work Phone: Comment on above: Expected: 06/19/2024 (Approximate), Expires: 12/17/2024 Start: 06-19-2024 End: 12-17-2024 Ferritin [Mass/volume] in Serum or Plasma Ferritin Lab Routine Benign essential hypertension Glucose intolerance (impaired glucose tolerance) Low ferritin Expected: 06/19/2024 (Approximate), Expires: 12/17/2024 [facility] Work Phone: Comment on above: Expected: 06/19/2024 (Approximate), Expires: 12/17/2024 Start: 06-19-2024 End: 12-17-2024 Hemoglobin A1c/Hemoglobin.total in Blood Hemoglobin A1C Lab Routine Benign essential hypertension Glucose intolerance (impaired glucose tolerance) Expected: 06/19/2024 (Approximate), Expires: 12/17/2024 [facility] Work Phone: Comment on above: Expected: 06/19/2024 (Approximate), Expires: 12/17/2024 Start: 06-19-2024 End: 12-17-2024 Iron and Iron binding capacity panel - Serum or Plasma Iron and TIBC Lab Routine Benign essential hypertension Glucose intolerance (impaired glucose tolerance) Low ferritin Expected: 06/19/2024 (Approximate), Expires: 12/17/2024 [facility] Work Phone: Comment on above: Expected: 06/19/2024 (Approximate), Expires: 12/17/2024 Start: 06-19-2024 End: 12-17-2024 Lipid 1996 panel - Serum or Plasma Lipid Panel Lab Routine Benign essential hypertension Hypercholesterolemia Glucose intolerance (impaired glucose tolerance) Expected: 06/19/2024 (Approximate), Expires: 12/17/2024 [facility] Work Phone: Comment on above: Expected: 06/19/2024 (Approximate), Expires: 12/17/2024 Start: 06-19-2024 End: 12-17-2024 Magnesium [Mass/volume] in Serum or Plasma Magnesium Lab Routine Benign essential hypertension Glucose intolerance (impaired glucose tolerance) Expected: 06/19/2024 (Approximate), Expires: 12/17/2024 [facility] Work Phone: Comment on above: Expected: 06/19/2024 (Approximate), Expires: 12/17/2024 Start: 06-19-2024 End: 06-19-2024 Patient encounter procedure 06/19/2024 2:00 PM EST Office Visit [facility] [address] [place] [address] Ashlyn Gates PA-C [address] [place] [address] [facility] Start: 06-04-2024 End: 06-04-2024 Patient encounter procedure 06/04/2024 9:00 AM EST Office Visit [address] [phone] Fabi Giraldo, CASKET LINER-MET[employer]ER [employer]IPPER [address] [place] [address] [facility] Start: 05-08-2024 End: 05-08-2024 Patient encounter procedure 05/08/2024 8:20 AM EST Office Visit [address] [address] Fabi Giraldo, CASKET LINER-[employer]IPPER [address] [place] [address] [facility] Start: 03-07-2024 End: 03-07-2024 Patient encounter procedure 03/07/2024 1:40 PM EDT Office Visit [address] [address] Fabi Giraldo, CASKET LINER-[employer]IPPER [address] [place] [address] [facility] Start: 01-28-2024 COVID-19 Vaccine ( season) COVID-19 Vaccine () [facility] Start: 01-28-2024 COVID-19 VACCINE ( season) COVID-19 VACCINE ( season) [facility] Start: 01-28-2024 COVID-19 VACCINE ( season) COVID-19 VACCINE () [facility] Start: 01-28-2024 Influenza vaccination INFLUENZA VACC INE (#1) [facility] Start: 12-08-2023 End: 12-08-2023 Patient encounter procedure 12/08/2023 2:20 PM EDT Office Visit [facility] [address] [place] [address] Fabi Giraldo, CASKET LINER-[employer] WE[employer]IPPER [address] [place] [address] [facility] Start: 11-22-2023 End: 05-23-2024 CBC W Auto Differential panel - Blood CBC and Auto Differential Lab Routine Hypercholesterolemia Glucose intolerance (impaired glucose tolerance) Expected: 11/22/2023 (Approximate), Expires: 05/23/2024 [facility] Service Area Work Phone: Comment on above: Expected: 11/22/2023 (Approximate), Expires: 05/23/2024 Start: 11-22-2023 End: 05-23-2024 Cobalamin (Vitamin B12) [Mass/volume] in Serum or Plasma Vitamin B12 Lab Routine Low vitamin B12 level Expected: 11/22/2023 (Approximate), Expires: 05/23/2024 [facility] Work Phone: Comment on above: Expected: 11/22/2023 (Approximate), Expires: 05/23/2024 Start: 11-22-2023 End: 05-23-2024 Comprehensive metabolic 2000 panel - Serum or Plasma Comprehensive Metabolic Panel Lab Routine Hypercholesterolemia Glucose intolerance (impaired glucose tolerance) Expected: 11/22/2023 (Approximate), Expires: 05/23/2024 [facility] Work Phone: Comment on above: Expected: 11/22/2023 (Approximate), Expires: 05/23/2024 Start: 11-22-2023 End: 05-23-2024 Ferritin [Mass/volume] in Serum or Plasma Ferritin Lab Routine Low ferritin Expected: 11/22/2023 (Approximate), Expires: 05/23/2024 [facility] Work Phone: Comment on above: Expected: 11/22/2023 (Approximate), Expires: 05/23/2024 Start: 11-22-2023 End: 05-23-2024 Hemoglobin A1c/Hemoglobin.total in Blood Hemoglobin A1C Lab Routine Glucose intolerance (impaired glucose tolerance) Expected: 11/22/2023 (Approximate), Expires: 05/23/2024 [facility] Work Phone: Comment on above: Expected: 11/22/2023 (Approximate), Expires: 05/23/2024 Start: 11-22-2023 End: 05-23-2024 Iron and Iron binding capacity panel - Serum or Plasma Iron and TIBC Lab Routine Low ferritin Expected: 11/22/2023 (Approximate), Expires: 05/23/2024 [facility] Work Phone: Comment on above: Expected: 11/22/2023 (Approximate), Expires: 05/23/2024 Start: 11-22-2023 End: 05-23-2024 Lipid 1996 panel - Serum or Plasma Lipid Panel Lab Routine Hypercholesterolemia Expected: 11/22/2023 (Approximate), Expires: 05/23/2024 [facility] Work Phone: Comment on above: Expected: 11/22/2023 (Approximate), Expires: 05/23/2024 Start: 11-22-2023 End: 05-23-2024 Magnesium [Mass/volume] in Serum or Plasma Magnesium Lab Routine Hypercholesterolemia Expected: 11/22/2023 (Approximate), Expires: 05/23/2024 [facility] Work Phone: Comment on above: Expected: 11/22/2023 (Approximate), Expires: 05/23/2024 Start: 11-22-2023 End: 05-23-2024 Thyrotropin [Units/volume] in Serum or Plasma Thyroid Stimulating Hormone Lab Routine Hypercholesterolemia Expected: 11/22/2023 (Approximate), Expires: 05/23/2024 [facility] Work Phone: Comment on above: Expected: 11/22/2023 (Approximate), Expires: 05/23/2024 Start: 11-22-2023 End: 05-23-2024 Thyroxine (T4) free [Mass/volume] in Serum or Plasma Thyroxine, Free Lab Routine Hypercholesterolemia Expected: 11/22/2023 (Approximate), Expires: 05/23/2024 [facility] Work Phone: Comment on above: Expected: 11/22/2023 (Approximate), Expires: 05/23/2024 Start: 11-22-2023 End: 11-22-2023 Patient encounter procedure 11/22/2023 10:40 AM EDT Office Visit [facility] [address] [place] [address] Ashlyn [place], PA-C [address] [place] [address] [facility] Start: 11-17-2023 Screening for malignant neoplasm of cervix [facility] Start: 11-01-2023 Diabetes mellitus screening Diabetes Screening [facility] Start: 08-24-2023 End: 08-24-2023 Patient encounter procedure 08/24/2023 8:20 AM EDT Office Visit [facility] [address] [place] [phone] Fabi Giraldo APRN-CNP [address] [place] [phone] [facility] Start: 07-24-2023 End: 07-24-2023 Patient encounter procedure 07/24/2023 9:20 AM EST Office Visit [facility] [address] [place] [phone] Ashlyn Gates, PAEulaliaC [address] [place] [place] [address] [facility] Start: 05-12-2023 End: 05-12-2023 Patient encounter procedure 05/12/2023 8:20 AM EST Office Visit [facility] [address] [place] [address] Fabi Giraldo, CASKET LINER-[employer]IPPER [address] [place] [address] [facility] Start: 05-03-2023 End: 11-02-2023 CBC W Auto Differential panel - Blood CBC and Auto Differential Lab Routine Glucose intolerance (impaired glucose tolerance) Hypercholesterolemia Expected: 05/03/2023 (Approximate), Expires: 11/02/2023 [facility] Service Area Work Phone: Comment on above: Expected: 05/03/2023 (Approximate), Expires: 11/02/2023 Start: 05-03-2023 End: 11-02-2023 Cobalamin (Vitamin B12) [Mass/volume] in Serum or Plasma Vitamin B12 Lab Routine Glucose intolerance (impaired glucose tolerance) Low vitamin B12 level Hypercholesterolemia Expected: 05/03/2023 (Approximate), Expires: 11/02/2023 [facility] Work Phone: Comment on above: Expected: 05/03/2023 (Approximate), Expires: 11/02/2023 Start: 05-03-2023 End: 11-02-2023 Comprehensive metabolic 2000 panel - Serum or Plasma Comprehensive Metabolic Panel Lab Routine Glucose intolerance (impaired glucose tolerance) Hypercholesterolemia Expected: 05/03/2023 (Approximate), Expires: 11/02/2023 [facility] Work Phone: Comment on above: Expected: 05/03/2023 (Approximate), Expires: 11/02/2023 Start: 05-03-2023 End: 11-02-2023 Ferritin [Mass/volume] in Serum or Plasma Ferritin Lab Routine Glucose intolerance (impaired glucose tolerance) Low ferritin Hypercholesterolemia Expected: 05/03/2023 (Approximate), Expires: 11/02/2023 [facility] Work Phone: Comment on above: Expected: 05/03/2023 (Approximate), Expires: 11/02/2023 Start: 05-03-2023 End: 11-02-2023 Hemoglobin A1c/Hemoglobin.total in Blood Hemoglobin A1C Lab Routine Glucose intolerance (impaired glucose tolerance) Hypercholesterolemia Expected: 05/03/2023 (Approximate), Expires: 11/02/2023 [facility] Work Phone: Comment on above: Expected: 05/03/2023 (Approximate), Expires: 11/02/2023 Start: 05-03-2023 End: 11-02-2023 Iron and Iron binding capacity panel - Serum or Plasma Iron and TIBC Lab Routine Glucose intolerance (impaired glucose tolerance) Low ferritin Hypercholesterolemia Expected: 05/03/2023 (Approximate), Expires: 11/02/2023 [facility] Work Phone: Comment on above: Expected: 05/03/2023 (Approximate), Expires: 11/02/2023 Start: 05-03-2023 End: 11-02-2023 Lipid 1996 panel - Serum or Plasma Lipid Panel Lab Routine Glucose intolerance (impaired glucose tolerance) Hypercholesterolemia Expected: 05/03/2023 (Approximate), Expires: 11/02/2023 [facility] Work Phone: Comment on above: Expected: 05/03/2023 (Approximate), Expires: 11/02/2023 Start: 05-03-2023 End: 11-02-2023 Magnesium [Mass/volume] in Serum or Plasma Magnesium Lab Routine Glucose intolerance (impaired glucose tolerance) Low ferritin Hypercholesterolemia Expected: 05/03/2023 (Approximate), Expires: 11/02/2023 [facility] Work Phone: Comment on above: Expected: 05/03/2023 (Approximate), Expires: 11/02/2023 Start: 05-03-2023 End: 05-03-2023 Patient encounter procedure 05/03/2023 2:00 PM EST Office Visit [facility] [address] [place] [phone] Ashlyn Gates, PAEulaliaC [address] [place] [address] [facility] Start: 02-15-2023 End: 02-15-2023 Patient encounter procedure 02/15/2023 8:00 AM EDT Office Visit [facility] [address] [place] [phone] Fabi Giraldo APRN-METAL WE[employer]PER [address] [place] [phone] [facility] Start: 01-27-2023 COVID-19 Vaccine ( season) COVID-19 Vaccine ( season) [facility] Start: 01-27-2023 COVID-19 VACCINE ( season) COVID-19 VACCINE ( season) [facility] Start: 01-27-2023 Influenza vaccination INFLUENZA VACC INE (#1) [facility] Start: 11-24-2022 End: 11-24-2022 Patient encounter procedure 11/24/2022 Office Visit [facility] Fabi Giraldo, MECCA-METAL WEATHER STRIPPER [address] [place] [phone] [facility] Start: 11-01-2022 FUV, Provider: Ashlyn Gates, Status: Pen, Time: 2:00 PM FUV, Provider: Ashlyn Gates, Status: Pen, Time: 2:00 PM [facility] Work Phone: Start: 10-26-2022 End: 10-26-2022 Patient encounter procedure 10/26/2022 Office Visit Family Medicine Fabi Giraldo APRN-METAL WE[employer]ER [employer]IPPER [address] [place] [address] [facility] Start: 09-03-2022 [facility] Start: 08-23-2022 End: 08-23-2022 Patient encounter procedure 08/23/2022 Office Visit Family Medicine Fabi Giraldo APRN-METAL WE[employer]ER [employer]IPPER [address] [place] [address] [facility] Start: 08-12-2022 COVID-19 Vaccine (4 - Booster for Moderna series) COVID-19 Vaccine (4 - Booster for Moderna series) [facility] Start: 08-12-2022 COVID-19 Vaccine (4 - Moderna series) COVID-19 Vaccine (4 - Moderna series) [facility] Start: 07-26-2022 End: 07-26-2022 Patient encounter procedure 07/26/2022 Office Visit [facility] Fabi Giraldo APRN-METAL WEATHER STRIPPER [address] [place] [address] [facility] Start: 07-18-2022 FUV, Provider: Christopher Keenan, Status: Pen, Time: 3:30 PM FUV, Provider: Christopher Keenan, Status: Pen, Time: 3:30 PM [facility] Work [facility]: Start: 07-18-2022 Patient encounter procedure [facility] Start: 06-21-2022 End: 06-21-2022 Patient encounter procedure 06/21/2022 Office Visit Family Medicine Fabi Giraldo APRN-METAL WEATHER STRIPPER [address] [place] [phone] [facility] Start: 05-03-2022 FUV, Provider: Ashlyn Gates, Status: Pen, Time: 2:40 PM FUV, Provider: Ashlyn Gates, Status: Neal, Time: 2:40 PM -[place] Work Phone: Start: 05-03-[address] [facility] Start: 04-26-2022 End: 04-26-2022 Patient encounter procedure 04/26/2022 Office Visit Family Medicine Fabi Giraldo APRN-METAL WEATHER STRIPPER [address] [place] [address] [facility] Start: 03-24-2022 End: 03-24-2022 Patient encounter procedure 03/24/2022 Office Visit [facility] Fabi Giraldo APRN-METAL WE[employer]ER [employer]IPPER [address] [place] [address] [facility] Start: 02-24-2022 End: 02-24-2022 Patient encounter procedure 02/24/2022 Office Visit [facility] Medicine Fabi Giraldo APRN-METAL WEATHER STRIPPER [address] [place] [address] [facility] Start: 01-27-2022 Influenza vaccination INFLUENZA VACC INE (#1) [facility] Start: 01-03-2022 FUV, Provider: Christopher Keenan, Status: Pen, Time: 1:15 PM FUV, Provider: Christopher Keenan, Status: Pen, Time: 1:15 PM [facility] Work Phone: Start: 12-23-2021 End: 12-23-2021 Patient encounter procedure 12/23/2021 Office Visit [facility] Medicine Fabi Giraldo APRN-METAL WEATHER STRIPPER [address] [place] [phone] [facility] Start: 11-25-2021 End: 11-25-2021 Patient encounter procedure 11/25/2021 Office Visit Family Medicine Fabi Giraldo APRN-METAL WEATHER STRIPPER [address] [place] [address] [facility] Start: 10-27-2021 End: 10-27-2021 Patient encounter procedure 10/27/2021 Office Visit Family Medicine Fabi Giraldo APRN-METAL WEATHER STRIPPER [address] [place] [address] [facility] Start: 09-29-2021 End: 09-29-2021 Patient encounter procedure 09/29/2021 Office Visit [facility] Medicine Fabi Giraldo APRN-METAL WEATHER STRIPPER [address] [place] [address] [facility] Start: 09-23-2021 FUV, Provider: Ashlyn Gates, Status: Pen, Time: 2:40 PM FUV, Provider: Ashlyn Gates, Status: Pen, Time: 2:40 PM [facility] Work Phone: Start: 09-02-2021 End: 09-02-2021 Patient encounter procedure 09/02/2021 Office Visit Family Medicine Fabi Giraldo APRN-METAL WEATHER STRIPPER [address] [place] [address] [facility] Start: 08-03-2021 End: 08-03-2021 Patient encounter procedure 08/03/2021 Office Visit [facility] Medicine Fabi Giraldo APRN-METAL WE[employer]ER STRIPPER [address] [place] [address] [facility] Start: 08-03-2021 Tetanus vaccination [facility] Start: 07-05-2021 FUV, Provider: Christopher Keenan, Status: Pen, Time: 3:00 PM FUV, Provider: Christopher Keenan, Status: Pen, Time: 3:00 PM [facility] Work Phone: Start: 06-01-2021 End: 06-01-2021 Patient encounter procedure 06/01/2021 Office Visit [facility] Fabi Giraldo, CASKET LINER-METAL WEATHER STRIPPER [address] [place] [phone] [facility] Start: 05-18-2021 VIRFUVALEXIA, Provider : Ashlyn Gates, Status: Pen, Time: 12:40 PM VIRFUVALEXIA, Provider: Ashlyn Gates, Status: Pen, Time: 12:40 PM [facility] Work Phone: Start: 03-25-2021 EPV, Provider: Nirali Portillo, Status: Pen, Time: 3:20 PM EPV, Provider: Nirali Portillo, Status: Pen, Time: 3:20 PM [facility] Work Phone: Start: 02-17-2021 COVID-19 VACCINE (3 - Booster for Moderna series) COVID-19 VACCINE (3 - Booster for Moderna series) [facility] Start: 01-27-2021 Influenza vaccination A [facility] Start: 01-26-2021 End: 01-26-2021 Patient encounter procedure 01/26/2021 Office Visit [facility] Fabi Giraldo, CASKET LINER-METAL WEATHER STRIPPER [address] [place] [phone] [facility] Start: 12-29-2020 FUV, Provider: Christopher Keenan, Status: Pen, Time: 3:00 PM FUV, Provider: Christopher Keenan, Status: Pen, Time: 3:00 PM [facility] Medicine Work Phone: Start: 12-22-2020 End: 12-22-2020 Patient encounter procedure 12/22/2020 Office Visit Family Medicine Fabi Giraldo APRN-METAL WE[employer]ER [employer]IPPER [address] [place] [phone] [facility] Start: 11-12-2020 COVID-19 VACCINE (3 - Booster for Moderna series) COVID-19 VACCINE (3 - Booster for Moderna series) [facility] Start: 11-03-2020 End: 11-03-2020 Patient encounter procedure 11/03/2020 Office Visit Family Medicine Fabi Giraldo APRN-METAL WEATHER STRIPPER [address] [place] [phone] [facility] Start: 10-02-2020 End: 10-02-2020 Office Visit 10/02/2020 Office Visit [facility] Medicine Fabi Giraldo APRN-[employer] [address] [place] [id number] [facility] Start: 09-18-2020 COVID-19 VACCINE (2 - Moderna 2-dose series) COVID-19 VACCINE (2 - Moderna 2-dose series) [facility] Start: 09-17-2020 End: 09-17-2020 Immunization 09/17/2020 Immunization Family Medicine [facility] Start: 09-04-2020 End: 09-04-2020 Office Visit 09/04/2020 Office Visit Family Medicine Fabi Giraldo, MECCA-[employer] [address] [place] [address] [phone] [facility] Start: 03-26-2020 Blood count complete auto&auto difrntl wbc Complete Blood Count + Differential [facility] Work Phone: Start: 03-26-2020 Cobalamin (Vitamin B12) [Mass/Vol] Vitamin B12, Serum [facility] Work Phone: Start: 03-26-2020 Comprehensive metabolic 2000 panel Comprehensive Metabolic Panel [facility] Work Phone: Start: 03-26-2020 HbA1c (Bld) [Mass fraction] Hemoglobin A1C [facility] Work Phone: Start: 03-26-2020 Lipid panel Lipid Panel [facility] Work Phone: Start: 01-28-2020 Influenza vaccination INFLUENZA VACC INE (#1) [facility] Start: 09-11-2019 Assay of free thyroxine T4 - Free Thyroxine, Serum [facility] Work Phone: Start: 09-11-2019 Cobalamin (Vitamin B12) [Mass/Vol] Vitamin B12, Serum [facility] Work Phone: Start: 09-11-2019 Comprehensive metabolic 2000 panel Comprehensive Metabolic Panel [facility] Work Phone: Start: 09-11-2019 TSH Qn TSH - Thyroid Stimulating Hormone, Serum [facility] Work Phone: Start: 2018 DTaP/Tdap/Td Vaccine s (2 - Tdap) DTaP/Tdap/Td Vaccines (2 - Tdap) [facility] Start: 2017 Screening for malignant neoplasm of cervix [facility] Start: 2015 Third diphtheria, tetanus and acellular pertussis (DTaP) vaccination TDAP (ADULT) [facility] Start: 2014 Hepatitis C screening Hepatitis C [facility] Start: 2014 Tetanus vaccination TETANUS [facility] Start: 02-04-2013 HPV Vaccines (3 - 3-dose series) HPV Vaccines (3 - 3-dose series) [facility] Start: 02-04-2013 Vaccination for marybeth n papillomavirus HPV VACCINE ADOL (3 - 3-dose series) [facility] Start: 12-27-2012 HPV VACCINE (3 - 3-dose series) HPV VACCINE (3 - 3-dose series) [facility] Start: 12-27-2012 HPV Vaccines (3 - 3-dose series) HPV Vaccines (3 - 3-dose series) [facility] Start: 2012 Screening for Chlamydia trachomatis CHLAMYDIA SCREEN [facility] Start: 2011 HIV screening HIV SCREENING DISCUSSI ON [facility] Start: 2009 HIV screening HIV SCREENING DISCUSSI ON [facility] Start: 2009 Varicella vaccination Varicell a Vaccines (1 of 2 - 13+ 2-dose series) [facility] Start: 2007 Vaccination for marybeth n papillomavirus HPV VACCINE ADOL (1 - 2-dose series) [facility] Start: 1997 MMR Vaccines (1 of 1 - Standard series) MMR Vaccines (1 of 1 - Standard series) [facility] Start: 1996 GONORRHEA SCREEN GONORRHEA SCREEN [facility] Start: 1996 Hepatitis C antibody , confirmatory test HEPATITIS C VIRUS SCREENING [facility] Start: 1996 Hepatitis C screening HEPATITIS C ANNIKA SCREENING [facility] Start: 1996 HIV screening HIV Screening [facility] Start: 1996 Screening for Chlamydia trachomatis GONORRHEA SCREEN [facility] Start: 1996 Yearly Adult [facility] Helicobacter pylori Ag [Presence] in Stool by Immunoassay [facility] Ova and parasites identified in Unspecified specimen by Light microscopy [facility] Patient Education [facility] Work Phone: Patient referral [facility] Work Phone: Protein measurement [facility] Work Phone: [facility] NEGATED: Highlighted row has been ruled out! Planned Goals not documented [facility] Work Phone: Immunizations Immunization Date Immunization Notes Care Provider Martin mullen 04-22-2024 influenza, seasonal, injectable, preservative free Ashlyn Gates PA-C Work Phone: [facility] Work Phone: 02-23-2023 influenza, injectabl e, quadrivalent, preservative free [facility] 02-23-2023 influenza virus vaccine, unspecified formulation Fabi Giraldo APRN-[employer] Work Phone: [facility] 06-17-2022 Covid Moderna Bivale nt Booster PA Ashlyn LOPEZ Work Phone: [facility] 04-14-2022 influenza, injectabl e, quadrivalent, preservative free [facility] 04-14-2022 influenza, seasonal, injectable Ashlyn Gates Work Phone: [facility] 04-14-2022 influenza virus vaccine, unspecified formulation Fabi Giraldo APRN-[employer] Work Phone: [facility] 08-12-2021 hepatitis B vaccine, adult dosage Ashlynphylicia Gates Work Phone: [facility] 08-10-2021 tetanus toxoid, redu lakshmi diphtheria toxoid, and acellular pertussis vaccine, adsorbed Ashlynphylicia Gates Work Phone: [facility] 04-10-2021 Moderna COVID-19 Vaccine 100 MCG/0.5ML Intramuscular Suspension Ashlyn Gates Work Phone: [facility] Work Phone: 03-25-2021 influenza, injectabl e, quadrivalent, preservative free; Translations: [Flulaval Quadrivalent 0.5 ML Intramuscular Suspension Prefilled Syringe] Ashlynphylicia Gates Work Phone: [facility] Work Phone: Comment on above: Series: 03-25-2021 influenza virus vaccine, unspecified formulation Fabi Giraldo APRN-[employer] Work Phone: [facility] 09-17-2020 SARS-COV-2 (COVID-19 ), Mrna, Lnp-s, Pf, 100 Mcg/ 0.5 Ml Dose ILEANA Farah MD Work Phone: [facility] Comment on above: Series: 08-21-2020 SARS-COV-2 (COVID-19 ), Mrna, Lnp-s, Pf, 100 Mcg/ 0.5 Ml Dose ILEANA Giraldo [facility] Comment on above: Series: 02-24-2020 influenza, seasonal, injectable Ashlyn Gates Work Phone: [facility] Work Phone: Comment on above: Series: 02-24-2020 influenza, seasonal, injectable Christopher Keenan [facility] Work Phone: 10-04-2012 hepatitis A vaccine, pediatric/adolescent dosage, 2 dose schedule Ashlyn Diana [place] Work Phone: [facility] Work Phone: 10-04-2012 human papilloma viru s vaccine, quadrivalent Ashlyn Diana [place] Work Phone: [facility] Work Phone: 10-04-2012 HPV, unspecified formulation Ashlyn LOPEZ-C Work Phone: [facility] Work Phone: 08-04-2011 hepatitis A vaccine, pediatric/adolescent dosage, 2 dose schedule Ashlyn Diana [place] Work Phone: [facility] Work Phone: 08-04-2011 human papilloma viru s vaccine, quadrivalent Ashlyn Diana Yajaira Work Phone: [facility] Work Phone: 08-04-2011 meningococcal polysaccharide (groups A, C, Y and W-135) diphtheria toxoid conjugate vaccine (MCV4P) Ashlyn Gates Work Phone: [facility] Work Phone: 08-04-2011 tetanus toxoid, redu lakshmi diphtheria toxoid, and acellular pertussis vaccine, adsorbed Ashlyn Gates Work Phone: [facility] Work Phone: 08-04-2011 varicella virus vaccine Adrianna Gates Work Phone: [facility] Work Phone: 10-27-2000 hepatitis B vaccine, pediatric or pediatric/adolescent dosage Ashlyn Gates Work Phone: [facility] Work Phone: 10-27-2000 poliovirus vaccine, inactivated Ashlyn Gates Work Phone: [facility] Work Phone: 10-13-2000 diphtheria, tetanus toxoids and acellular pertussis vaccine, unspecified formulation Ashlyn Gates Work Phone: [facility] Work Phone: 10-13-2000 measles, mumps and rubella virus vaccine Ashlyn Gates Work Phone: [facility] Work Phone: 08-08-2000 diphtheria, tetanus toxoids and acellular pertussis vaccine, unspecified formulation Ashlyn Gates Work Phone: [facility] Work Phone: 08-08-2000 measles, mumps and rubella virus vaccine Ashlyn Gates Work Phone: [facility] Work Phone: 08-08-2000 varicella virus vaccine Adrianna Gates Work Phone: [facility] Work Phone: 02-26-1997 diphtheria, tetanus toxoids and acellular pertussis vaccine, unspecified formulation Ashlyn Gates Work Phone: [facility] Work Phone: 02-26-1997 haemophilus influenz ae type b vaccine, conjugate unspecified formulation Ashlyn Gates Work Phone: [facility] Work Phone: 02-26-1997 trivalent poliovirus vaccine, live, oral Ashlyn Gates Work Phone: [facility] Work Phone: 1996 diphtheria, tetanus toxoids and acellular pertussis vaccine, unspecified formulation Ashlyn Gates Work Phone: [facility] Work Phone: 1996 haemophilus influenz ae type b vaccine, conjugate unspecified formulation Ashlyn B Yajaira Work Phone: [facility] Work Phone: 1996 trivalent poliovirus vaccine, live, oral Ashlyn B Yajaira Work Phone: [facility] Work Phone: 1996 DTP-Haemophilus influenzae type b conjugate vaccine Ashlyn B Yajaira Work Phone: [facility] Work Phone: 1996 hepatitis B vaccine, pediatric or pediatric/adolescent dosage Ashlyn B Yajaira Work Phone: [facility] Work Phone: 1996 trivalent poliovirus vaccine, live, oral Ashlyn B Yajaira Work Phone: [facility] Work Phone: 1996 hepatitis B vaccine, pediatric or pediatric/adolescent dosage Ashlyn B Yajaira Work Phone: [facility] Work Phone: Payers Date Payer Category Payer Self-pay [id number] 2022 Managed Care (Private) 1.2.8 [id number] 2022 Managed Care (unspecified) CHRISTOPHE FUENTES [id number] .[id number] 2022 Unknown [id number] 2020 Private Health Insurance [id number] 1.2.840.663539.1.13.172.2 .7.3.218443.315 2020 Private Health Insurance 1.2 .[id number] .7.3.920918.315 2017 Unknown 1996 Unknown [id number] 2.16.840.1.203659.3.579.2 .1996 Unknown [id number] 2.16.840.1.385127.3.579.2 .1996 Unknown [id number] 2.16.840.1.437243.3.579.2 .1996 Unknown [id number] 2.16.840.1.229569.3.579.2 .1996 Unknown [id number] 2.16.840.1.879888.3.579.2 .1996 Unknown [id number] 2.16.840.1.143418.3.579.2 .1996 Unknown [id number] 2.16.840.1.286983.3.579.2 .1996 Unknown [id number] 2.16.840.1.396377.3.579.2 .1996 Unknown [id number] 2.16.840.1.704609.3.579.2 .1996 Unknown [id number] 2.16.840.1.746336.3.579.2 1996 Unknown [id number] 2.16.840.1.880220.3.579.2 .717 1996 Unknown [id number] 2.16.840.1.182744.3.579.2 .356 1996 Unknown [id number] 2.16.840.1.235813.3.579.2 .356 1996 Unknown [id number] 2.16.840.1.952896.3.579.2 .1069 1996 Unknown [id number] 2.16.840.1.490806.3.579.2 .1069 1996 Unknown [id number] 2.16.840.1.207736.3.579.2 .1069 1996 Unknown [id number] 2.16.840.1.959415.3.579.2 .1069 1996 Unknown [id number] 2.16.840.1.988069.3.579.2 .1069 1996 Unknown [id number] 2.16.840.1.476423.3.579.2 .902 1996 Unknown [id number] 2.16.840.1.993587.3.579.2 .983 1996 Unknown [id number] 2.16.840.1.232530.3.579.2 .983 1996 Unknown [id number] 2.16.840.1.953459.3.579.2 .983 1996 Unknown [id number] 2.16.840.1.350078.3.579.2 .983 1996 Unknown [id number] 2.16.840.1.660473.3.579.2 .983 1996 Unknown [id number] 2.16.840.1.406638.3.579.2 .983 1996 Unknown [id number] 2.16.840.1.479715.3.579.2 .1243 1996 Unknown [id number] 2.16.840.1.630649.3.579.2 .1244 1996 Unknown [id number] 2.16.840.1.825473.3.579.2 .1244 1996 Unknown [id number] 2.16.840.1.675022.3.579.2 .1244 1996 Unknown [id number] 2.840.1.931866.3.579.2 .1244 1996 Unknown [id number] 2.840.1.366801.3.579.2 .1244 1996 Unknown [id number] 2.840.1.271403.3.579.2 .1244 Private Health Insurance [id number] Unknown [id number] 2.840.1.189245.3.579.2 .462 Unknown [id number] 2.840.1.499670.3.579.2 .462 Unknown [id number] 2.840.1.526866.3.579.2 .462 Unknown [id number] 2.840.1.099693.3.579.2 .462 Unknown [id number] 2.840.1.610880.3.579.2 .462 Unknown [id number] 2.840.1.854053.3.579.2 .462 Unknown [id number] 2.16840.1.783505.3.579.2 .462 Unknown [id number] 2.16840.1.235753.3.579.2 .462 Unknown [id number] 2.840.1.773331.3.579.2 .462 Unknown [id number] 2.840.1.808921.3.579.2 .462 Unknown [id number] 2.16.840.1.635944.3.579.2 .462 Unknown [id number] 2.16.840.1.396064.3.579.2 .462 Unknown [id number] 2.16.840.1.151500.3.579.2 .462 Unknown [id number] 2.16.840.1.593678.3.579.2 .462 Unknown [id number] 2.16.840.1.966007.3.579.2 .462 Unknown [id number] 2.16.840.1.539755.3.579.2 .462 Social History Date Type Detail Facility Start: 08-06-2020 End: 10-27-2022 Tobacco smoking status NHIS Never smoker [facility] Start: 08-06-2020 End: 10-27-2022 Tobacco use and exposure Never used [facility] Start: 08-06-2020 End: 08-07-2024 Alcohol intake Ex-drinker (finding) [facility] Start: 08-06-2020 History SDOH Alcohol Frequency 1 [facility] Start: 1996 Sex Assigned At Not on file A [facility] Start: 07-24-2021 End: 10-30-2024 Exposure to SARS-CoV-2 (event) Not sure [facility] Start: 11-01-2022 End: 09-11-2024 Feels safe at home Feels safe at home [facility] Work Phone: Start: 09-03-2022 End: 09-03-2022 Tobacco smoking consumption unknown [facility] Start: 1996 Sex Assigned At Female [facility] Start: 11-01-2022 End: 10-30-2024 Alcohol intake Lifetime non-drinker (finding) [facility] Work Phone: Start: 11-01-2022 End: 09-11-2024 Tobacco use panel [facility] Work Phone: Start: 06-30-2022 Gender identity Identifies as female gender (finding) [facility] Work Phone: Start: 11-01-2022 Sexual orientation Bisexual (finding ) [facility] Work Phone: Start: 11-01-2022 Sexual orientation Heterosexual (fin ding) [facility] Work Phone: How often to you hav e a drink containing alcohol? Never [facility] Average Number of Drinks Not on file [facility] Start: 06-18-2020 End: 08-16-2024 Sex Female (finding) [facility] NEGATED: Highlighted row - - [facility] Work Phone: NEGATED: Highlighted row [facility] NEGATED: Highlighted row Not [facility] Goals Date Patient Goal Desired Activity /State Functional Status Date Assessment Result Facility 10-30-2024 Patient Health Questionnaire 2 item (PHQ-2) [Reported] [facility] Work Phone: 09-11-2024 Patient Health Questionnaire 2 item (PHQ-2) [Reported] [facility] Work Phone: 07-24-2024 Functional status Ambulates [facility] Work Phone: NEGATED: Highlighted row Functional performance Functional status health issues are not documented Disease [facility] Work Phone: Mental Status Date Assessment Result Facility 08-01-2024 Cognitive function Level Of Cons ciousness Awake;Alert;Appropriate ;Follows Commands [facility] Work Phone: 07-24-2024 Cognitive function Voice/Name [facility] Work Phone: NEGATED: Highlighted row Cognitive function [Interpretation] Cognitive status health issues are not documented Disease [facility]: Clinical Notes 10-02-2020 to 10-30-2024 Ashlyn Gates PA-C - 10/30/2024 1:20 PM Joan Gates PA-C - 09/11/2024 9:40 AM EDTAssessment & Plan Note - Fabi Giraldo APRN-ONEAL - 08/07/2024 9:00 AM EDT Note Date & Type Note Facility 10-30-2024 History of Present illness Narrative Subjective Patient ID: Yemi Morejon is a 29 y.o. female who presents for Follow-up (Discuss cpap+ breathing ) HPI FU sleep study Severe BEST APAP 5-15 cm H20 I do question if uncontrolled BEST was the cause of her AFIB rather than vyvanse but will keep her off that med. She is feeling well and following with cardio We discussed uncontrolled BEST contributing to arrythmia, HTN, obesity, fatigue, brain fog, mental health FACE 2 FACE October 2024 She has had the APAP for ~30 days and She is trying to use her APAP routinely to be comliant but states by the time she lays down to sleep she freaks out with the mask on her face. She is trying to get use to it and even wear in the evening or when she is watching TV but is struggling with breathing with her mouth closed and states anxiety around the BEST is becoming an issue. She knows she needs the CPAP and wants to use it but isn't sure what to do . She is on buspar but we can try hydroxyzine for anxiety as well before bed and cont with APAP. I have suggested repeat testing as she may do better with specific setting or even BIPAP vs referral to sleep med - she would like to start with the referral. We also discussed the inspire or surgery as possible options if she qualifies She admits to inc anxiety /depression given her health the last few mo- will inc viibryd and cont buspar Med check HTN- on meds -- home readings /work readings are approp - will cont to monitor - pt to check home BP and if >130/80 to call for med change - discussed add on BB, amlodpine, or hydrochlorothiazide - suspect BB B12 - 3 /week Iron - - extra supplement on occasion mood - stable on buspar and viibryd --celexa - dec libido --effexor - didn't work --prozac - didn't work --wellbutrin - was on with someone for wt loss - inc depression, nightmares -- viibryd taking GERD - improved back on PPI pain - stable - following with dr keenan wt loss - following with specialists and has been on/off adipex Preventative testing PAP - [facility] - visit is set for tomorrow mammo - suggest age 40 colonoscopy - suggest age 45-50 DEXA - suggest age 50-55 Fall - Neg May 2024 PHQ2 - Neg May 2024 Problem List[1] Review of Systems Constitutional: Positive for fatigue. Negative for chills and fever. HENT: Negative for congestion, rhinorrhea, sinus pain, sore throat and tinnitus. Eyes: Negative for discharge, redness and visual disturbance. Respiratory: Negative for cough, chest tightness, shortness of breath and wheezing. Cardiovascular: Negative for chest pain, palpitations and leg swelling. Gastrointestinal: Negative for abdominal pain, constipation, diarrhea, nausea and vomiting. Endocrine: Negative for cold intolerance and heat intolerance. Genitourinary: Negative for flank pain, frequency and urgency. Musculoskeletal: Negative for back pain, gait problem and neck pain. Skin: Negative for rash and wound. Neurological: Negative for dizziness, tremors, syncope, numbness and headaches. Hematological: Does not bruise/bleed easily. Psychiatric/Behavioral: Positive for sleep disturbance. Negative for confusion and suicidal ideas. The patient is nervous/anxious. Medical History[2] Surgical History[3] Family History[4] Social History[5] Allergies[6] Current Medications[7] Objective BP 140/85 Pulse 79 Ht 1.651 m (5' 5) Wt (!) 177 kg (390 lb 9.6 oz) SpO2 94% BMI 65.00 kg/m Physical Exam Vitals reviewed. Constitutional: Appearance: Normal appearance. She is obese. HENT: Head: Normocephalic. Right Ear: External ear normal. Left Ear: External ear normal. Nose: Nose normal. No congestion or rhinorrhea. Mouth/Throat: Mouth: Mucous membranes are moist. Eyes: Extraocular Movements: Extraocular movements intact. Conjunctiva/sclera: Conjunctivae normal. Pupils: Pupils are equal, round, and reactive to light. Cardiovascular: Rate and Rhythm: Normal rate and regular rhythm. Pulses: Normal pulses. Pulmonary: Effort: Pulmonary effort is normal. Breath sounds: Normal breath sounds. Abdominal: General: Bowel sounds are normal. Palpations: Abdomen is soft. Tenderness: There is no abdominal tenderness. There is no right CVA tenderness or left CVA tenderness. Musculoskeletal: General: No tenderness. Normal range of motion. Cervical back: Normal range of motion and neck supple. No tenderness. Skin: General: Skin is warm and dry. Neurological: General: No focal deficit present. Mental Status: She is alert and oriented to person, place, and time. Psychiatric: Mood and Affect: Mood normal. Behavior: Behavior normal. Testing Reviewed sleep study Severe BEST Reviewed labs ordered set to be done next month Impression MDM 1) COMPLEXITY: 1 OR MORE CHRONIC CONDITION WITH EXACERBATION, OR PROGRESSION OR SIDE EFFECT OF TREATMENT ADDRESSED 2)DATA: TESTS INTERPRETED AND OR ORDERED, TOOK INDEPENDENT HISTORY OR RECORDS REVIEWED 3)RISK: MODERATE RISK DUE TO NATURE OF MEDICAL CONDITIONS/COMORBIDITY OR MEDICATIONS ORDERED OR SURGICAL OR PROCEDURE REFERRAL, . Reviewed labs and Testing on file Patient to follow diet low in cholesterol, fat, and sodium. Patient is advised to increase Exercise. Patient is recommended to lose weight. Reviewed Meds and discussed common side effects Continue as directed Patient is strongly advised to be compliant with recommendations. Return to Clinic sooner if needed. Patient denies further questions/concerns at this time Assessment/Plan Problem List Items Addressed This Visit ICD-10-CM Benign essential hypertension I10 JESSICA (generalized anxiety disorder) F41.1 Relevant Medications hydrOXYzine HCL (Atarax) 25 mg tablet Class 3 severe obesity due to excess calories with serious comorbidity and body mass index (BMI) of 60.0 to 69.9 in adult E66.813, Z68.44 Paroxysmal atrial fibrillation (Multi) I48.0 BEST (obstructive sleep apnea) - Primary G47.33 Relevant Orders Referral to Adult Sleep Medicine FU as before Referral to sleep med - dr ashish triplett - BEST [1] Patient Active Problem List Diagnosis Acanthosis nigricans Benign essential hypertension Chronic low back pain Fibromyalgia Degeneration of intervertebral disc of lumbar region Depression, major, single episode, mild Dyspepsia JESSICA (generalized anxiety disorder) Glucose intolerance (impaired glucose tolerance) Hypercholesterolemia Low ferritin Low vitamin B12 level Lumbar radiculitis Lumbosacral radiculitis Class 3 severe obesity due to excess calories with serious comorbidity and body mass index (BMI) of 60.0 to 69.9 in adult Prolapsed lumbar disc Sacroiliitis Binge eating disorder Paroxysmal atrial fibrillation (Multi) Anxiety BEST (obstructive sleep apnea) [2] Past Medical History: Diagnosis Date Decreased libido 10/27/2022 Encounter for gynecological examination (general) (routine) without abnormal findings 11/16/2023 WNL Numbness of left foot 10/27/2022 [3] Past Surgical History: Procedure Laterality Date APPENDECTOMY COLONOSCOPY 11/16/2017 DR. PLEITEZ; NORMAL; REPEAT AT SCREEENING AGE ESOPHAGOGASTRODUODENOSCOPY 11/16/2017 DR. PLEITEZ; Mild chronic gastritis. Focal instinal metaplasia. Negative for H. pylori organisms WISDOM TOOTH EXTRACTION [4] Family History Problem Relation Name Age of Onset Hypertension Mother Breast cancer Mother No Known Problems Father [5] Social History Tobacco Use Smoking status: Never Smokeless tobacco: Never Vaping Use Vaping status: Never Used Substance Use Topics Alcohol use: Never Drug use: Never [6] Allergies Allergen Reactions Diclofenac Rash and Unknown [7] Current Outpatient Medications Medication Sig Dispense Refill albuterol 90 mcg/actuation inhaler Inhale 1-2 puffs every 4 hours if needed for wheezing or shortness of breath. 8.5 g 0 busPIRone (Buspar) 30 mg tablet Take 1 tablet (30 mg) by mouth 2 times a day. 60 tablet 5 clotrimazole-betamethasone (Lotrisone) cream Apply 1 Application topically 2 times a day as needed (rash). 45 g 1 cyanocobalamin (Vitamin B-12) 1,000 mcg tablet Take 1 tablet (1,000 mcg) by mouth once daily. 30 tablet 11 dilTIAZem CD (Cardizem CD) 180 mg 24 hr capsule Take 1 tablet by mouth early in the morning.. Eliquis 5 mg tablet Take 1 tablet (5 mg) by mouth every 12 hours. furosemide (Lasix) 40 mg tablet 1 tablet (40 mg). Larry Fe 06/17, , 1 mg-20 mcg (21)/75 mg (7) tablet Take 1 tablet by mouth early in the morning.. metoprolol tartrate (Lopressor) 100 mg tablet Take 1 tablet (100 mg) by mouth every 12 hours. omeprazole (PriLOSEC) [address] capsule Take 1 capsule (20 mg) by mouth 2 times a day before meals. 60 capsule 11 vilazodone (Viibryd) 40 mg tablet Take 1 tablet (40 mg) by mouth once daily with breakfast. 30 tablet 5 No current facility-administered medications for this visit. documented in this encounter [facility] Work Phone: 09-11-2024 History of Present illness Narrative Subjective Patient ID: Yemi Morejon is a 29 y.o. female who presents for Follow-up (SLEEP STUDY DONE LAST WEEK ) HPI FU sleep study Severe BEST APAP 5-15 cm H20 Will follow up in 1-2 mo with face to face compliance I do question if this was the cause of her AFIB rather than vyvanse but will keep her off that med. She is feeling well and following with cardio We discussed uncontrolled BEST contributing to arrythmia, HTN, obesity, fatigue, brain fog, mental health She admits to inc anxiety /depression given her health the last few mo- will inc viibryd and cont buspar Med check HTN- on meds -- home readings /work readings are approp - will cont to monitor - pt to check home BP and if >130/80 to call for med change - discussed add on BB, amlodpine, or hydrochlorothiazide - suspect BB B12 - 3 /week Iron - - extra supplement on occasion mood - stable on buspar and viibryd --celexa - dec libido --effexor - didn't work --prozac - didn't work --wellbutrin - was on with someone for wt loss - inc depression, nightmares -- viibryd taking GERD - improved back on PPI pain - stable - following with dr keenan wt loss - following with specialists and has been on/off adipex Preventative testing PAP - [facility] - visit is set for tomorrow mammo - suggest age 40 colonoscopy - suggest age 45-50 DEXA - suggest age 50-55 Fall - Neg May 2024 PHQ2 - Neg May 2024 Problem List[1] Review of Systems Constitutional: Positive for fatigue. Negative for chills and fever. HENT: Negative for congestion, rhinorrhea, sinus pain, sore throat and tinnitus. Eyes: Negative for discharge, redness and visual disturbance. Respiratory: Negative for cough, chest tightness, shortness of breath and wheezing. Cardiovascular: Negative for chest pain, palpitations and leg swelling. Gastrointestinal: Negative for abdominal pain, constipation, diarrhea, nausea and vomiting. Endocrine: Negative for cold intolerance and heat intolerance. Genitourinary: Negative for flank pain, frequency and urgency. Musculoskeletal: Positive for arthralgias. Negative for back pain, gait problem and neck pain. Skin: Negative for rash and wound. Neurological: Negative for dizziness, tremors, syncope, numbness and headaches. Hematological: Does not bruise/bleed easily. Psychiatric/Behavioral: Positive for dysphoric mood and sleep disturbance. Negative for confusion and suicidal ideas. The patient is nervous/anxious. Medical History[2] Surgical History[3] Family History[4] Social History[5] Allergies[6] Current Medications[7] Objective BP 129/82 Pulse 74 Ht 1.651 m (5' 5) Wt (!) 174 kg (383 lb 9.6 oz) SpO2 95% BMI 63.83 kg/m Physical Exam Vitals reviewed. Constitutional: Appearance: Normal appearance. She is obese. HENT: Head: Normocephalic. Right Ear: External ear normal. Left Ear: External ear normal. Nose: Nose normal. No congestion or rhinorrhea. Mouth/Throat: Mouth: Mucous membranes are moist. Eyes: Extraocular Movements: Extraocular movements intact. Conjunctiva/sclera: Conjunctivae normal. Pupils: Pupils are equal, round, and reactive to light. Cardiovascular: Rate and Rhythm: Normal rate and regular rhythm. Pulses: Normal pulses. Pulmonary: Effort: Pulmonary effort is normal. Breath sounds: Normal breath sounds. Abdominal: General: Bowel sounds are normal. Palpations: Abdomen is soft. Tenderness: There is no abdominal tenderness. There is no right CVA tenderness or left CVA tenderness. Musculoskeletal: General: No tenderness. Normal range of motion. Cervical back: Normal range of motion and neck supple. No tenderness. Skin: General: Skin is warm and dry. Neurological: General: No focal deficit present. Mental Status: She is alert and oriented to person, place, and time. Psychiatric: Mood and Affect: Mood normal. Behavior: Behavior normal. Testing Reviewed sleep study Impression MDM 1) COMPLEXITY: MORE THAN 1 STABLE CHRONIC CONDITION ADDRESSED 2)DATA: TESTS INTERPRETED AND OR ORDERED, TOOK INDEPENDENT HISTORY OR RECORDS REVIEWED 3)RISK: MODERATE RISK DUE TO NATURE OF MEDICAL CONDITIONS/COMORBIDITY OR MEDICATIONS ORDERED OR SURGICAL OR PROCEDURE REFERRAL, . Reviewed labs and Testing on file Patient to follow diet low in cholesterol, fat, and sodium. Patient is advised to increase Exercise. Patient is recommended to lose weight. Reviewed Meds and discussed common side effects Continue as directed Patient is strongly advised to be compliant with recommendations. Return to Clinic sooner if needed. Patient denies further questions/concerns at this time Assessment/Plan Problem List Items Addressed This Visit ICD-10-CM Benign essential hypertension I10 Depression, major, single episode, mild (CMS-HCC) F32.0 Relevant Medications vilazodone (Viibryd) 40 mg tablet JESSICA (generalized anxiety disorder) F41.1 Relevant Medications vilazodone (Viibryd) 40 mg tablet Class 3 severe obesity due to excess calories with serious comorbidity and body mass index (BMI) of 60.0 to 69.9 in adult E66.813, E66.01, Z68.44 Binge eating disorder F50.819 Paroxysmal atrial fibrillation (Multi) I48.0 BEST (obstructive sleep apnea) - Primary G47.33 Relevant Orders Positive Airway Pressure (PAP) Therapy Fu in 2 mo with F2 F CPAP compliance APAP supplies to town [1] Patient Active Problem List Diagnosis Acanthosis nigricans Benign essential hypertension Chronic low back pain Fibromyalgia Degeneration of intervertebral disc of lumbar region Depression, major, single episode, mild (CMS-HCC) Dyspepsia JESSICA (generalized anxiety disorder) Glucose intolerance (impaired glucose tolerance) Hypercholesterolemia Low ferritin Low vitamin B12 level Lumbar radiculitis Lumbosacral radiculitis Class 3 severe obesity due to excess calories with serious comorbidity and body mass index (BMI) of 60.0 to 69.9 in adult Prolapsed lumbar disc Sacroiliitis (CMS-HCC) Binge eating disorder Paroxysmal atrial fibrillation (Multi) Anxiety [2] Past Medical History: Diagnosis Date Decreased libido 10/27/2022 Encounter for gynecological examination (general) (routine) without abnormal findings 11/16/2023 WNL Numbness of left foot 10/27/2022 [3] Past Surgical History: Procedure Laterality Date APPENDECTOMY COLONOSCOPY 11/16/2017 DR. PLEITEZ; NORMAL; REPEAT AT SCREEENING AGE ESOPHAGOGASTRODUODENOSCOPY 11/16/2017 DR. PLEITEZ; Mild chronic gastritis. Focal instinal metaplasia. Negative for H. pylori organisms WISDOM TOOTH EXTRACTION [4] Family History Problem Relation Name Age of Onset Hypertension Mother No Known Problems Father [5] Social History Tobacco Use Smoking status: Never Smokeless tobacco: Never Vaping Use Vaping status: Never Used Substance Use Topics Alcohol use: Never Drug use: Never [6] Allergies Allergen Reactions Diclofenac Rash and Unknown [7] Current Outpatient Medications Medication Sig Dispense Refill albuterol 90 mcg/actuation inhaler Inhale 1-2 puffs every 4 hours if needed for wheezing or shortness of breath. 8.5 g 0 busPIRone (Buspar) 30 mg tablet Take 1 tablet (30 mg) by mouth 2 times a day. 60 tablet 5 clotrimazole-betamethasone (Lotrisone) cream Apply 1 Application topically 2 times a day as needed (rash). 45 g 1 cyanocobalamin (Vitamin B-12) 1,000 mcg tablet Take 1 tablet (1,000 mcg) by mouth once daily. 30 tablet 11 dilTIAZem CD (Cardizem CD) 180 mg 24 hr capsule Take 1 tablet by mouth early in the morning.. Eliquis 5 mg tablet Take 1 tablet (5 mg) by mouth every 12 hours. furosemide (Lasix) 40 mg tablet 1 tablet (40 mg). Larry Fe /, 29, 1 mg-20 mcg (21)/75 mg (7) tablet Take 1 tablet by mouth early in the morning.. metoprolol tartrate (Lopressor) 100 mg tablet Take 1 tablet (100 mg) by mouth every 12 hours. omeprazole (PriLOSEC) [address] capsule Take 1 capsule (20 mg) by mouth 2 times a day before meals. 60 capsule 11 vilazodone (Viibryd) 20 mg tablet Take 1 tablet (20 mg) by mouth once daily with breakfast. 30 tablet 5 busPIRone (Buspar) 5 mg tablet Take 1 tablet (5 mg) by mouth 3 times a day as needed (anxiety). (Patient not taking: Reported on 09/11/2024) 40 tablet 5 Vyvanse 30 mg capsule Take 1 capsule (30 mg) by mouth once daily in the morning. Take before meals. (Patient not taking: Reported on 09/11/2024) No current facility-administered medications for this visit. documented in this encounter [facility] Work Phone: 08-07-2024 Evaluation + Plan note Associated Problem(s): Binge eating disorder As above. Orders: AMB REFERRAL TO BARIATRIC SURG [facility] 08-07-2024 Evaluation + Plan note Associated Problem(s): Benign essential hypertension As above. T [facility] 08-07-2024 Evaluation + Plan note Associated Problem(s): Impaired glucose tolerance As above. T [facility] 08-07-2024 History of Present illness Narrative Nurse Note: Review of Systems Constitutional: Negative for fatigue and fever. HENT: Negative for congestion, ear pain and sore throat. Eyes: Negative for pain and redness. Respiratory: Negative for cough and shortness of breath. Cardiovascular: Negative for chest pain and palpitations. Gastrointestinal: Negative for abdominal pain, constipation, diarrhea, nausea and vomiting. Genitourinary: Negative for difficulty urinating and dysuria. Musculoskeletal: Negative for arthralgias and myalgias. Skin: Negative for rash and wound. Neurological: Negative for dizziness and headaches. All other systems reviewed and are negative. Chief Complaint Patient presents with Weight Management Session Fatigue HPI: Binge eating/obesity: Update 05/17/24: medication was reduced last visit to 30 mg, reports hasn't felt any heart palpitations since being on the lower dose, however, doesn't feel as helpful for binge eating, does feel like this is at least better than nothing, still does help somewhat with binging just not as much as the 50 mg dose, is working with counselor currently on different modalities to help through the overeating and to even avoid this, working on making baby steps versus all or nothing mentality. 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 ROS: Constitutional: Negative for fatigue and fever. HENT: Negative for congestion, ear pain and sore throat. Eyes: Negative for pain and redness. Respiratory: Negative for cough and shortness of breath. Cardiovascular: Negative for chest pain and palpitations. Gastrointestinal: Negative for abdominal pain, constipation, diarrhea, nausea and vomiting. Genitourinary: Negative for difficulty urinating and dysuria. Musculoskeletal: Negative for arthralgias and myalgias. Skin: Negative for rash and wound. Neurological: Negative for dizziness and headaches. All other systems reviewed and are negative. Past medical/family/social history: reviewed and updated, see documented in patient's chart. Physical Exam: BP (!) 134/101 Pulse 114 Wt (!) 171.8 kg (378 lb 12.8 oz) BMI 63.04 kg/m Smoking Status Never Body mass index is 63.04 kg/m . Physical Exam Cardiovascular: Rate and Rhythm: Regular rhythm. Tachycardia present. Assessment/Plan: Assessment & Plan BMI 60.0-69.9, adult Patient has been working for years on weight loss, now faced with a-fib and will be following with cardiology and sleep medicine, will continue with therapist on modalities to help with binge eating, would like referral to discuss surgical options at this point, she would be a good candidate for this due to chronic illnesses. Orders: AMB REFERRAL TO BARIATRIC SURG Binge eating disorder, unspecified severity As above. Orders: AMB REFERRAL TO BARIATRIC SURG Atrial fibrillation, unspecified type As above Orders: AMB REFERRAL TO BARIATRIC SURG Benign essential hypertension As above. Impaired glucose tolerance As above. Orders and follow up as documented in patient record; We reviewed diet, exercise and weight control; We reviewed medications and possible side effects. All questions were answered; Patient was advised to call with any questions or concerns. If symptoms worsen patient was advised to follow up in our office or the Emergency Dept. Benefits, Risks, Contraindications, and Complications of recommended treatments were explained the patient understands and agrees to proceed with plan. MADDIE Tuttle 08/07/2024 documented in this encounter [facility] 08-07-2024 Miscellaneous Notes Associated Problem(s): Binge eating disorder As above. Orders: AMB REFERRAL TO BARIATRIC SURG Associated Problem(s): Benign essential hypertension As above. Associated Problem(s): Impaired glucose tolerance As above. documented in this encounter [facility] 07-30-2024 History of Present illness Narrative Subjective Patient ID: Yemi Morejon is a 29 y.o. female who presents for Hospital Follow-up (HOSPITAL DISCHARGE 07/24/24 [facility] - PALPITATIONS, A.FIB (NEW ONSET) PATIENT CONTINUES TO HAVE HEART PALPITATIONS - APPOINTMENT SCHEDULED WITH [facility] 08/14/24. ). HPI F/U AFTER HOSPITAL STAY FOR NEW ONSET A FIB AND PALPITATIONS . WAS STARTED ON METOPROLOL AND ELIQUIS . STILL HAS THE PALPITATIONS,PENDING CARDIO VISIT . WORSENING ANXIETY , CURRENTLY GETS COUNSELING. HAS CHRONIC SNORING WITH WEIGHT GAIN AND FAMILY H/O BEST. Review of Systems Constitutional: Negative for chills and fever. WEIGHT GAIN HENT: Negative. Negative for congestion, postnasal drip and rhinorrhea. Eyes: Negative. Negative for visual disturbance. Respiratory: Negative for cough, shortness of breath and wheezing. SNORING Cardiovascular: Positive for palpitations. Negative for chest pain and leg swelling. PER HPI Gastrointestinal: Negative. Negative for abdominal distention, abdominal pain, constipation, diarrhea, nausea and vomiting. Endocrine: Negative. Genitourinary: Negative for dysuria and urgency. Musculoskeletal: Negative. Negative for back pain. Skin: Negative. Negative for rash. Allergic/Immunologic: Negative for immunocompromised state. Neurological: Negative. Negative for dizziness, weakness, light-headedness and headaches. Psychiatric/Behavioral: Negative for agitation. The patient is nervous/anxious. Objective Physical Exam Constitutional: General: She is not in acute distress. HENT: Head: Normocephalic. Nose: Nose normal. Mouth/Throat: Mouth: Mucous membranes are moist. Eyes: Conjunctiva/sclera: Conjunctivae normal. Pupils: Pupils are equal, round, and reactive to light. Cardiovascular: Rate and Rhythm: Normal rate and regular rhythm. Pulses: Normal pulses. Heart sounds: Normal heart sounds. Pulmonary: Effort: No respiratory distress. Breath sounds: No wheezing. Chest: Chest wall: No tenderness. Abdominal: General: Abdomen is flat. Bowel sounds are normal. Palpations: Abdomen is soft. Tenderness: There is no abdominal tenderness. Musculoskeletal: General: No tenderness. Normal range of motion. Cervical back: Normal range of motion. Lymphadenopathy: Cervical: No cervical adenopathy. Skin: General: Skin is warm and dry. Findings: No rash. Neurological: General: No focal deficit present. Mental Status: She is alert. Mental status is at baseline. Psychiatric: Mood and Affect: Mood normal. Behavior: Behavior normal. Assessment/Plan 1. Paroxysmal atrial fibrillation (Multi) 2. Anxiety busPIRone (Buspar) 5 mg tablet In-Center Sleep Study 3. Snoring In-Center Sleep Study 4. Family history of sleep apnea In-Center Sleep Study 5. Morbid obesity with BMI of 60.0-69.9, adult (Multi) In-Center Sleep Study 6. Glucose intolerance (impaired glucose tolerance) 7. Benign essential hypertension 8. Palpitations TEST RESULTS WERE DISCUSSED. HTN addressed as follow: MONITOR BP GOAL BP LOWER THAN 130/80 LOW SALT EXERCISE DAILY ADVISED FOR RELAXATION TECHNIQUES AND TO CUT DOWN ON CAFFEINE. WILL START PRN BUSPAR, TO CONTINUE THE COUNSELING. ADVISED TO HAVE LOW FAT AND LOW CALORIE , HIGH PROTEIN DIET AND TO LOOSE WEIGHT, DAILY EXERCISE. I SPENT 40 MINUTES WITH PT ADDRESSING THE ABOVE. MDM 1) COMPLEXITY: 1 UNDIAGNOSED NEW PROBLEM WITH UNCERTAIN PROGNOSIS 2)DATA: TESTS INTERPRETED AND OR ORDERED, TOOK INDEPENDENT HISTORY OR RECORDS REVIEWED 3)RISK: MODERATE RISK DUE TO NATURE OF MEDICAL CONDITIONS/COMORBIDITY OR MEDICATIONS ORDERED OR SURGICAL OR PROCEDURE REFERRAL, . Has F/U. documented in this encounter [facility] Work Phone: 07-24-2024 Note [facility] Medical Records Department [address] [place] [address] Discharge Summary 07/24/24 1220 MR#: [id number] Acct: [id number] Name: YEMI JC Rep #: [id number] : 1995 29 From: Nirmala Arenas DO PCP: JOHN Ramirez Status:ADM IN Location: [facility] [id number] Providers Date of Admission: 07/23/24 Date of Discharge: 07/24/24 Primary Care Physician: JOHN Ramirez Consultations 07/22/24 22:56 Consult: Cardiology Routine Consulting Provider: [facility] Reason for Consult: New-onset AFIB with RVR. EMERGENT Consult: No MD Notified: Yes Date Notified: 07/23/24 Time Notified: 08:25 Method of Notification: Verbal Method of Consult:: In-Person Reason For Visit: NEW ONSET AFIB WITH PERSISTENT RVR Diagnosis Discharge Diagnosis (1) Atrial fibrillation with rapid ventricular response: Status: Acute Code(s): I48.91 - Unspecified atrial fibrillation Medications at Discharge Home Medications buspirone 30 mg tablet 30 mg PO BID 07/22/24 clotrimazole-betamethasone 1 %-0.05 % topical cream 1 applic topical BID PRN PRN rash 07/22/24 cyanocobalamin (vitamin B-12) 1,000 mcg tablet 1,000 mcg PO DAILY 07/22/24 omeprazole 20 mg capsule,delayed release 20 mg PO BID 07/22/24 vilazodone 20 mg tablet 20 mg PO DAILY 07/22/24 apixaban 5 mg tablet (Eliquis) 5 mg PO BID #60 tabs 07/24/24 diltiazem HCl 180 mg capsule,extended release 24 hr 180 mg PO DAILY #30 caps 07/24/24 metoprolol tartrate 100 mg tablet 100 mg PO BID #60 tabs 07/24/24 Hospital Course Operations None Procedures 2-D Echocardiogram, EKG and - (Chest x-ray/CTA of the chest) Summary of Care Provided Minutes Spent on Discharge: 36 Hospital Course: Ms Jc is a 29-year-old white female who presents emergency department [facility] on 07/22/2024 with palpitations, racing heart, and shortness of breath. Patient has a history of morbid obesity and was placed on lisdexamfetamine for ADHD but is using it for weight loss. Symptoms began about 2 days prior to presentation when she was getting into her car. She also reported dyspnea on exertion along with a heightened anxiety that is new. 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 She stopped taking the stimulant 2 days prior to presentation and denied any other stimulant use or excessive caffeine ingestion. She denied illicit drug as well. She had an history of atrial fibrillation or family history of cardiac issues. Vital signs on presentation showed temperature 98.1, heart rate 156, respiratory rate 16, blood pressure 175/158 with a repeat of 128/81 after Cardizem drip and pulse ox was 99% on room air. CBC showed a mild leukocytosis with a white count of 12.0 but no left shift. Chemistry panel on presentation was unremarkable. Electrolytes were normal. Troponins were normal x 3. TSH was normal at 3.1. test was negative. Given her recent travel and new A-fib with RVR on EKG, a CTA of her chest was performed and was negative for any acute findings including PE or thoracic dissection. No adenopathy was noted. She was admitted to the hospital and cardiology was consulted. It is felt that the stimulant along with potential diagnosis for obstructive sleep apnea was the etiology for her A-fib. She was initially placed on rate controlling medication and Lovenox subcu however was transition to Eliquis. Given the fact on presentation she had been symptomatic for over 48 hours direct cardioversion was deferred at that time with the plan for anticoagulation for 3 to 4 weeks prior to considering cardioversion. Medications were uptitrated and at the time of discharge cardiology recommended her going on diltiazem 180 mg daily as well as metoprolol 100 mg p.o. twice daily. She was still in A-fib at the time of discharge with heart rates in the low 100s to 120s. Case was discussed further with Dr. Hernández from cardiology and he felt she was stable for discharge as she was asymptomatic. She is to watch her heart rates closely at home and if develops any rapid heart rates or lightheadedness/presyncopal symptoms to call the office and get in for an EKG. If she is asymptomatic plan is to follow-up in 3 weeks with cardiology office and continue to avoid stimulants. She has been advised to check her heart rates periodically throughout the day especially if she develops any lightheadedness. Prescriptions for the diltiazem, metoprolol, and Eliquis were sent to local pharmacy prior to discharge. I have advised her to follow-up with her primary care physician within the next week. She was advised to obtain a polysomnography as an outpatient to rule out BEST as a potential etiology for development of atrial fibrillation. Discharge diagnoses: Atrial fibrillation with RVR Palpitations Dyspnea on exertion Essential hypertension (more content not included)... [facility] 07-23-2024 Evaluation note Diagnosis Onset Date Resolution Atrial fibrillation with rapid ventricular response acute July 23, 025 4:23pm Leukocytosis acute June 4:23pm Morbid obesity with BMI of 60.0-69.9, adult acute June 4:23pm Palpitations acute June 4:23pm Acute anxiety resolved July 232024 4:23pm Adverse drug reaction resolved Fe ruary 2024 4:23pm Dyspnea on exertion resolved [email or web address] 4:23pm Essential hypertension inactive 2024 4:23pm Morbid obesity with BMI of 60.0-69.9, adult acute August 02, 025 8:58am Atrial fibrillation inactive August 02, 2024 8:58am [facility] Work Phone: [phone] 185-114701-22-2025 History of Present illness Narrative* Ashlyn Gates PA-C - 06/19/2024 2:00 PM EST Subjective Patient ID: Yemi Morejon is a 29 y.o. female who presents for Follow-up (3 MO F/U WITH LABS NO COMPLAINTS) HPI to review labs Med check HTN- on meds -- home readings /work readings are approp - will cont to monitor - pt to check home BP and if >130/80 to call for med change - discussed add on BB, amlodpine, or hydrochlorothiazide - suspect BB B12 - 3 /week Iron - - extra supplement on occasion mood - stable on buspar and viibryd --celexa - dec libido --effexor - didn't work --prozac - didn't work --wellbutrin - was on with someone for wt loss - inc depression, nightmares -- viibryd pt thinks she did ok in the past - GERD - improved back on PPI pain - stable - following with dr keenan wt loss - following with specialists and has been on/off adipex Preventative testing PAP - [facility] - visit is set for tomorrow mammo - suggest age 40 colonoscopy - suggest age 45-50 DEXA - suggest age 50-55 Fall - Neg May 2024 PHQ2 - Neg May 2024 Patient Active Problem List Diagnosis Acanthosis nigricans Benign essential hypertension Chronic low back pain Fibromyalgia Degeneration of intervertebral disc of lumbar region Depression, major, single episode, mild (CMS-HCC) Dyspepsia JESSICA (generalized anxiety disorder) Glucose intolerance (impaired glucose tolerance) Hypercholesterolemia Low ferritin Low vitamin B12 level Lumbar radiculitis Lumbosacral radiculitis 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 Prolapsed lumbar disc Sacroiliitis (CMS-HCC) Binge eating disorder Review of Systems Constitutional: Negative for chills, fatigue and fever. HENT: Negative for congestion, rhinorrhea, sinus pain, sore throat and tinnitus. Eyes: Negative for discharge, redness and visual disturbance. Respiratory: Negative for cough, chest tightness, shortness of breath and wheezing. Cardiovascular: Negative for chest pain, palpitations and leg swelling. Gastrointestinal: Negative for abdominal pain, constipation, diarrhea, nausea and vomiting. Endocrine: Negative for cold intolerance and heat intolerance. Genitourinary: Negative for flank pain, frequency and urgency. Musculoskeletal: Negative for back pain, gait problem and neck pain. Skin: Negative for rash and wound. Neurological: Negative for dizziness, tremors, syncope, numbness and headaches. Hematological: Does not bruise/bleed easily. Psychiatric/Behavioral: Negative for confusion, sleep disturbance and suicidal ideas. Past Medical History: Diagnosis Date Decreased libido 10/27/2022 Encounter for gynecological examination (general) (routine) without abnormal findings 11/16/2023 WNL Numbness of left foot 10/27/2022 Past Surgical History: Procedure Laterality Date APPENDECTOMY COLONOSCOPY 11/16/2017 DR. PLEITEZ; NORMAL; REPEAT AT SCREEENING AGE ESOPHAGOGASTRODUODENOSCOPY 11/16/2017 DR. PLEITEZ; Mild chronic gastritis. Focal instinal metaplasia. Negative for H. pylori organisms WISDOM TOOTH EXTRACTION Family History Problem Relation Name Age of Onset Hypertension Mother No Known Problems Father Social History Tobacco Use Smoking status: Never Smokeless tobacco: Never Vaping Use Vaping status: Never Used Substance Use Topics Alcohol use: Never Drug use: Never Allergies Allergen Reactions Diclofenac Rash and Unknown Current Outpatient Medications Medication Sig Dispense Refill busPIRone (Buspar) 30 mg tablet TAKE 1 TABLET (30mg) BY MOUTH TWICE DAILY 60 tablet 5 cyanocobalamin (Vitamin B-12) 1,000 mcg tablet Take 1 tablet (1,000 mcg) by mouth once daily. 30 tablet 11 Larry Fe , 1 mg-20 mcg (21)/75 mg (7) tablet Take 1 tablet by mouth early in the morning.. losartan (Cozaar) 50 mg tablet Take 1 tablet (50 mg) by mouth 2 times a day. 60 tablet 11 omeprazole (PriLOSEC) [address] capsule Take 1 capsule (20 mg) by mouth 2 times a day before meals. 60 capsule 11 vilazodone (Viibryd) 20 mg tablet TAKE 1 TABLET BY MOUTH ONCE DAILY. (Start after finishing the 7 days of 10mg dose) 30 tablet 5 Vyvanse 30 mg capsule Take 1 capsule (30 mg) by mouth once daily in the morning. Take before meals. albuterol 90 mcg/actuation inhaler Inhale 1-2 puffs every 4 hours if needed for wheezing or shortness of breath. (Patient not taking: Reported on 06/19/2024) 8.5 g 0 dicyclomine (Bentyl) 10 mg capsule Take 1 capsule (10 mg) by mouth 3 times a day. (Patient not taking: Reported on 06/19/2024) No current facility-administered medications for this visit. Objective BP 125/89 Pulse 101 Ht 1.651 m (5' 5) Wt (!) 171 kg (376 lb 6.4 oz) BMI 62.64 kg/m Physical Exam Vitals reviewed. Constitutional: Appearance: Normal appearance. She is obese. HENT: Head: Normocephalic. Right Ear: External ear normal. Left Ear: External ear normal. Nose: Nose normal. No congestion or rhinorrhea. Mouth/Throat: Mouth: Mucous membranes are moist. Eyes: Extraocular Movements: Extraocular movements intact. Conjunctiva/sclera: Conjunctivae normal. Pupils: Pupils are equal, round, and reactive to light. Cardiovascular: Rate and Rhythm: Normal rate and regular rhythm. Pulses: Normal pulses. Pulmonary: Effort: Pulmonary effort is normal. Breath sounds: Normal breath sounds. Abdominal: General: Bowel sounds are normal. Palpations: Abdomen is soft. Tenderness: There is no abdominal tenderness. There is no right CVA tenderness or left CVA tenderness. Musculoskeletal: General: No tenderness. Normal range of motion. Cervical back: Normal range of motion and neck supple. No tenderness. Skin: General: Skin is warm and dry. Neurological: General: No focal deficit present. Mental Status: She is alert and oriented to person, place, and time. Psychiatric: Mood and Affect: Mood normal. Behavior: Behavior normal. Testing Labs at [facility] CBC - WNL CMP -glucose 113* -rest approp Mag 1.9 Iron 64 Ferritin 19 Lipid -tchol 228* -TG 170 -HDL 52 -LDL 142* B12 683 Labs at [facility] November 2023 CBC -hgb 11.9* - rest approp CMP -glucose 109* - rest approp Hgba1c 5.2 Mag 2.0 Iron 51 (50-170) Iron sat 11.9* Ferritin 10 (8-252) Lipid -tchol 223* -TG 144 -HDL 47 -LDL 147* B12 339 TSH/free t4 - WNl Labs at [facility] Apr 2023 Lipid -tchlo 198 -TG 86 -HDL 45 -LDL 136* CMP -glucose 119* -rest approp Ferritin 22 Iron 52 CBC - approp B12 397 Hgba1c 5.1 Labs at [facility] October 2022 CMP -glucose 102 -rest approp Lipid -tchol 256* -TG 258* -HDL 45 -LDL 159* B12 503 CBC - Wnl Impression MDM 1) COMPLEXITY: MORE THAN 1 STABLE CHRONIC CONDITION ADDRESSED 2)DATA: TESTS INTERPRETED AND OR ORDERED, TOOK INDEPENDENT HISTORY OR RECORDS REVIEWED 3)RISK: MODERATE RISK DUE TO NATURE OF MEDICAL CONDITIONS/COMORBIDITY OR MEDICATIONS ORDERED OR SURGICAL OR PROCEDURE REFERRAL, . Reviewed labs and Testing on file Patient to follow diet low in cholesterol, fat, and sodium. Patient is advised to increase Exercise. Patient is recommended to lose weight. Reviewed Meds and discussed common side effects Continue as directed Patient is strongly advised to be compliant with recommendations. Return to Clinic sooner if needed. Patient denies further questions/concerns at this time Assessment/Plan Problem List Items Addressed This Visit ICD-10-CM Benign essential hypertension I10 Relevant Orders CBC and Auto Differential Comprehensive Metabolic Panel Hemoglobin A1C Lipid Panel Thyroid Stimulating Hormone Thyroxine, Free Iron and TIBC Ferritin Magnesium Vitamin B12 Depression, major, single episode, mild (CMS-HCC) F32.0 Glucose intolerance (impaired glucose tolerance) - Primary R73.02 Relevant Orders CBC and Auto Differential Comprehensive Metabolic Panel Hemoglobin A1C Lipid Panel Thyroid Stimulating Hormone Thyroxine, Free Iron and TIBC Ferritin Magnesium Vitamin B12 Hypercholesterolemia E78.00 Relevant Orders Lipid Panel Thyroid Stimulating Hormone Thyroxine, Free Low ferritin R79.0 Relevant Orders Iron and TIBC Ferritin Low vitamin B12 level R79.89 Class 3 severe obesity due to excess calories with serious comorbidity and body mass index (BMI) of60.0 to 69.9 in adult E66.813, E66.01, Z68.44 FU in 6 mo with labs at [place] documented in this [facility] Work Phone: [phone] 280-191312-20-2024 Evaluation + Plan note* Assessment & Plan Note - MADDIE Tuttle - 05/17/2024 9:40 AM ESTAssociated Problem(s): Binge eating disorder Not quite as beneficial as higher dose but she is without palpitations at this time, will continue currently. Orders: Lisdexamfetamine (Vyvanse) 30 MG capsule; Take 1 capsule by mouth daily every morning. Lisdexamfetamine (Vyvanse) 30 MG capsule; Take 1 capsule by mouth daily every morning. Lisdexamfetamine (Vyvanse) 30 MG capsule; Take 1 capsule by mouth daily every morning. [facility]12-20-2024 History of Present illness Narrative* Emmie Dahl - 05/17/2024 9:40 AM EST Nurse Note: Review of Systems Constitutional: Negative for fatigue and fever. HENT: Negative for congestion, ear pain and sore throat. Eyes: Negative for pain and redness. Respiratory: Negative for cough and shortness of breath. Cardiovascular: Negative for chest pain and palpitations. Gastrointestinal: Negative for abdominal pain, constipation, diarrhea, nausea and vomiting. Genitourinary: Negative for difficulty urinating and dysuria. Musculoskeletal: Negative for arthralgias and myalgias. Skin: Negative for rash and wound. Neurological: Negative for dizziness and headaches. * MADDIE Tuttle - 05/17/2024 9:40 AM EST Chief Complaint Patient presents with Eating Disorder HPI: Heart palpitations: reports felt like heart was beating really hard and fast and then would go away, episode lasted 10-15 seconds and then went away, then she woke up one morning and felt like her heart was racing all day, heart rate was over 100, chest felt heavy, felt really tired during this episode, did some deep breathing and started to feel a little bit better but heart rate remained about 105, her blood pressure was normal at the time, stopped taking the vyvanse and felt normal the next few days, restarted vyvanse to see if this happened again and reports symptoms came back, since she hasn't had her vyvanse she is now eating everything in sight again and food noise has increased, hasbeen talking to counselor about increased appetite and what to do during this time. Update 05/17/24: medication was reduced last visit to 30 mg, reports hasn't felt any heart palpitations since being on the lower dose, however, doesn't feel as helpful for binge eating, does feel like this is at least better than nothing, still does help somewhat with binging just not as much as the 50 mg dose, is working with counselor currently on different modalities to help through the overeating and to even avoid this, working on making baby steps versus all or nothing mentality. ROS: Constitutional: Negative for fatigue and fever. HENT: Negative for congestion, ear pain and sore throat. Eyes: Negative for pain and redness. Respiratory: Negative for cough and shortness of breath. Cardiovascular: Negative for chest pain and palpitations. Gastrointestinal: Negative for abdominal pain, constipation, diarrhea, nausea and vomiting. Genitourinary: Negative for difficulty urinating and dysuria. Musculoskeletal: Negative for arthralgias and myalgias. Skin: Negative for rash and wound. Neurological: Negative for dizziness and headaches. All other systems reviewed and are negative. Past medical/family/social history: reviewed and updated, see documented in patient's chart. Physical Exam: BP 137/85 Pulse 89 Wt (!) 170.9 kg (376 lb 12.8 oz) SpO2 97% BMI 62.70 kg/m Smoking Status Never Body mass index is 62.7 kg/m . Physical Exam Cardiovascular: Rate and Rhythm: Normal rate and regular rhythm. Assessment/Plan: Assessment & Plan Binge eating disorder, unspecified severity Not quite as beneficial as higher dose but she is without palpitations at this time, will continue currently. Orders: Lisdexamfetamine (Vyvanse) 30 MG capsule; Take 1 capsule by mouth daily every morning. Lisdexamfetamine (Vyvanse) 30 MG capsule; Take 1 capsule by mouth daily every morning. Lisdexamfetamine (Vyvanse) 30 MG capsule; Take 1 capsule by mouth daily every morning. Orders and follow up as documented in patient record; We reviewed diet, exercise and weight control; We reviewed medications and possible side effects. All questions were answered; Patient was advised to call with any questions or concerns. If symptoms worsen patient was advised to follow up in our office or the Emergency Dept. Benefits, Risks, Contraindications, and Complications of recommended treatments were explained the patient understands and agrees to proceed with plan. MADDIE Tuttle 05/17/2024 documented in this [facility]12-20-2024 Miscellaneous Notes* Assessment & Plan Note - MADDIE Tuttle - 05/17/2024 9:40 AM EST Associated Problem(s): Binge eating disorder Not quite as beneficial as higher dose but she is without palpitations at this time, will continue currently. Orders: Lisdexamfetamine (Vyvanse) 30 MG capsule; Take 1 capsule by mouth daily every morning. Lisdexamfetamine (Vyvanse) 30 MG capsule; Take 1 capsule by mouth daily every morning. Lisdexamfetamine (Vyvanse) 30 MG capsule; Take 1 capsule by mouth daily every morning. documented in this [facility]11-13-2024 Evaluation + Plan note * Assessment & Plan Note - MADDIE Tuttle - 04/10/2024 9:20 AM EST Associated Problem(s): Binge eating disorder Suspect palpitations due to vyvanse, she is discouraged because medication helps with her appetite and binging, would like to try lower dose to see if this exacerbates symptoms, will call office withany problems. Orders: Lisdexamfetamine (Vyvanse) 30 MG capsule; Take 1 capsule by mouth daily every morning. [facility]11-13-2024 History of Present illness Narrative* Kim Mcgregored - 04/10/2024 9:20 AM EST Nurse Note: Review of Systems Constitutional: Negative for fatigue and fever. HENT: Negative for congestion, ear pain and sore throat. Eyes: Negative for pain and redness. Respiratory: Negative for cough and shortness of breath. Cardiovascular: Negative for chest pain and palpitations. Gastrointestinal: Negative for abdominal pain, constipation, diarrhea, nausea and vomiting. Genitourinary: Negative for difficulty urinating and dysuria. Musculoskeletal: Negative for arthralgias and myalgias. Skin: Negative for rash and wound. Neurological: Negative for dizziness and headaches. All other systems reviewed and are negative. * Fabi Giraldo, [employer] - 04/10/2024 9:20 AM EST Chief Complaint Patient presents with Weight Management Session Discuss Vyvanse, was having rapid heart rate while taking medication. Per [employer] message Dr. Farah advised to hold medication and make appointment to discuss Fatigue HPI: Heart palpitations: reports felt like heart was beating really hard and fast and then would go away, episode lasted 10-15 seconds and then went away, then she woke up one morning and felt like her heart was racing all day, heart rate was over 100, chest felt heavy, felt really tired during this episode, did some deep breathing and started to feel a little bit better but heart rate remained about 105, her blood pressure was normal at the time, stopped taking the vyvanse and felt normal the next few days, restarted vyvanse to see if this happened again and reports symptoms came back, since she hasn't had her vyvanse she is now eating everything in sight again and food noise has increased, hasbeen talking to counselor about increased appetite and what to do during this time. ROS: Constitutional: Negative for fatigue and fever. HENT: Negative for congestion, ear pain and sore throat. Eyes: Negative for pain and redness. Respiratory: Negative for cough and shortness of breath. Cardiovascular: Negative for chest pain and palpitations. Gastrointestinal: Negative for abdominal pain, constipation, diarrhea, nausea and vomiting. Genitourinary: Negative for difficulty urinating and dysuria. Musculoskeletal: Negative for arthralgias and myalgias. Skin: Negative for rash and wound. Neurological: Negative for dizziness and headaches. All other systems reviewed and are negative. Past medical/family/social history: reviewed and updated, see documented in patient's chart. Physical Exam: BP (!) 142/96 Pulse 82 Wt (!) 170.9 kg (376 lb 12.8 oz) BMI 62.70 kg/m Smoking Status Never Body mass index is 62.7 kg/m . Physical Exam Cardiovascular: Rate and Rhythm: Normal rate and regular rhythm. Assessment/Plan: Assessment & Plan Binge eating disorder, unspecified severity Suspect palpitations due to vyvanse, she is discouraged because medication helps with her appetite and binging, would like to try lower dose to see if this exacerbates symptoms, will call office withany problems. Orders: Lisdexamfetamine (Vyvanse) 30 MG capsule; Take 1 capsule by mouth daily every morning. Orders and follow up as documented in patient record; We reviewed diet, exercise and weight control; We reviewed medications and possible side effects. All questions were answered; Patient was advised to call with any questions or concerns. If symptoms worsen patient was advised to follow up in our office or the Emergency Dept. Benefits, Risks, Contraindications, and Complications of recommended treatments were explained the patient understands and agrees to proceed with plan. MADDIE Tuttle 04/10/2024 documented in this [facility]11-13-2024 Miscellaneous Notes* Assessment & Plan Note - MADDIE Tuttle - 04/10/2024 9:20 AM EST Associated Problem(s): Binge eating disorder Suspect palpitations due to vyvanse, she is discouraged because medication helps with her appetite and binging, would like to try lower dose to see if this exacerbates symptoms, will call office withany problems. Orders: Lisdexamfetamine (Vyvanse) 30 MG capsule; Take 1 capsule by mouth daily every morning. documented in this [facility]10-10-2024 History of Present illness Narrative* Abeba Hudson - 03/07/2024 1:40 PM EDT Nurse Note: Review of Systems Constitutional: Negative for fatigue and fever. HENT: Negative for congestion, ear pain and sore throat. Eyes: Negative for pain and redness. Respiratory: Negative for cough and shortness of breath. Cardiovascular: Negative for chest pain and palpitations. Gastrointestinal: Negative for abdominal pain, constipation, diarrhea, nausea and vomiting. Genitourinary: Negative for difficulty urinating and dysuria. Musculoskeletal: Negative for arthralgias and myalgias. Skin: Negative for rash and wound. Neurological: Negative for dizziness and headaches. Patient presents today for weight management. States vyvanse is beneficial with no side effects. * Fabi Kristal, [employer] - 03/07/2024 1:40 PM EDT Chief Complaint Patient presents with Weight Management Session HPI: Regarding Weight Gain: Yemi Jc is a 27 y.o. y.o. female who presents today with the complaint of obesity. She states that she has had gradual weight gain and would like to have assistance with weight loss. She has also been working on weight loss by: Diet: does have binge eating diagnosis, eats when she's not hungry, eats excessive amounts in a short period of time, feels remorse over this eating pattern, has been binging at least every other day, Update 09/07/23: stopped counseling last month because she felt like they weren't making any progress, she was working through the Emotional Eating workbook with her counselor and felt good at first but then felt like it was less helpful, she is looking into different counselors in [place], she has also started viibryd and feels like this is helping as well, reports still has binging episodes on vyvanse but these aren't as frequent as they were before medication, at this point feels like she needs to work through her stress. Update 12/08/23: has been busy with work and just started school, weight is stable, she does feel like medication helps with appetite and binging, trying to cook as much as she can, limiting portions sizes, trying to be mindful Update 03/07/24: recently restarted counseling, feels like this is going to work out for her, was working out with friend and then fractured her toe, has been struggling with stress and what to do with her job, she is trying to focus more on herself and not outside stressors because this causes herto eat poorly and binge, is working with her counselor on ways to de-stress and not take work home with her, she understands that she is not making smar choices right now due to stress, she does feellike medication is helping her not to think about food all day long or binge. Exercise: just signed up with co-worker at [employer]. Barriers: binge eater, emotional eating She has used prescription medication for weight loss in the past. Including: Adipex She denies heart disease She does have: see problem list Past Medical History Includes Her Wt Readings from Last 3 Encounters: 03/07/24 (!) 171.8 kg (378 lb 11.2 oz) 12/08/23 (!) 170.3 kg (375 lb 6.4 oz) 09/07/23 (!) 170.7 kg (376 lb 6.4 oz) and current Body mass index is 63.02 kg/m . Reviewed today. Hypertension: reports is usually controlled on medications, blood pressure this morning was 130/88,reports forgot to take medication today. ROS: Constitutional: Negative for fatigue and fever. HENT: Negative for congestion, ear pain and sore throat. Eyes: Negative for pain and redness. Respiratory: Negative for cough and shortness of breath. Cardiovascular: Negative for chest pain and palpitations. Gastrointestinal: Negative for abdominal pain, constipation, diarrhea, nausea and vomiting. Genitourinary: Negative for difficulty urinating and dysuria. Musculoskeletal: Negative for arthralgias and myalgias. Skin: Negative for rash and wound. Neurological: Negative for dizziness and headaches. All other systems reviewed and are negative. Past medical/family/social history: reviewed and updated, see documented in patient's chart. Physical Exam: BP 126/88 (BP Location: Left arm, BP Position: Sitting) Pulse 96 Ht 1.651 m (5' 5) Wt (!) 171.8 kg (378 lb 11.2 oz) SpO2 98% BMI 63.02 kg/m Smoking Status Never Body mass index is 63.02 kg/m . Physical Exam Constitutional: Appearance: She is obese. HENT: Head: Normocephalic and atraumatic. Eyes: Conjunctiva/sclera: Conjunctivae normal. Pupils: Pupils are equal, round, and reactive to light. Cardiovascular: Rate and Rhythm: Normal rate and regular rhythm. Heart sounds: Normal heart sounds. No murmur heard. Pulmonary: Effort: Pulmonary effort is normal. Breath sounds: Normal breath sounds. Musculoskeletal: Cervical back: Normal range of motion and neck supple. Skin: General: Skin is warm and dry. Neurological: Mental Status: She is alert and oriented to person, place, and time. Assessment/Plan: 1. Binge eating disorder, unspecified severity Chronic and stable. Continue current therapy. Continue with counseling. - Lisdexamfetamine Dimesylate (Vyvanse) 50 MG capsule; Take 1 capsule by mouth daily. Dispense: 30 capsule; Refill: 0 - Lisdexamfetamine Dimesylate (Vyvanse) 50 MG capsule; Take 1 capsule by mouth daily. Dispense: 30 capsule; Refill: 0 - Lisdexamfetamine Dimesylate (Vyvanse) 50 MG capsule; Take 1 capsule by mouth daily. Dispense: 30 capsule; Refill: 0 2. Benign essential hypertension Continue to monitor blood pressure while on vyvanse. Orders and follow up as documented in patient record; We reviewed medications and possible side effects. All questions were answered; Patient was advised to call with any questions or concerns. If symptoms worsen patient was advised to follow up in our office or the Emergency Dept. Benefits, Risks, Contraindications, and Complications of recommended treatments were explained the patient understands and agrees to proceed with plan. MADDIE Tuttle 03/07/2024 documented in this [facility]07-22-2024 History of Present illness Narrative* Ashlyn Gates PA-C - 12/18/2023 2:00 PM EDT Subjective Patient ID: Yemi Morejon is a 28 y.o. female who presents for Follow-up (6 MO F/U LABS-[facility]; NO COMPLAINTS TODAY) HPI to review labs Med check HTN- on meds -- home readings /work readings are approp - will cont to monitor - pt to check home BP and if >130/80 to call for med change - discussed add on BB, amlodpine, or hydrochlorothiazide - suspect BB B12 - on injection on occasion and OTC supplement - admits not taking faithfully Iron - discussed started every other day to then daily as tolerated and monitor for GI symptoms - consider colace or miralax prn mood - stable on buspar and viibryd --celexa - dec libido --effexor - didn't work --prozac - didn't work --wellbutrin - was on with someone for wt loss - inc depression, nightmares -- viibryd pt thinks she did ok in the past - GERD - improved back on PPI pain - stable - following with dr keenan wt loss - following with specialists and has been on/off adipex Preventative testing PAP - [facility] - visit is set for tomorrow mammo - suggest age 41 colonoscopy - suggest age 45-50 DEXA - suggest age 50-55 Fall - Neg November 2023 PHQ2 - Neg November 2023 Patient Active Problem List Diagnosis Acanthosis nigricans Benign essential hypertension Chronic low back pain Fibromyalgia Degeneration of intervertebral disc of lumbar region Depression, major, single episode, mild (CMS-HCC) Dyspepsia JESSICA (generalized anxiety disorder) Glucose intolerance (impaired glucose tolerance) Hypercholesterolemia Low ferritin Low vitamin B12 level Lumbar radiculitis Lumbosacral radiculitis 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 Negative for chills and fever. HENT: Negative for congestion, rhinorrhea, sinus pain, sore throat and tinnitus. Eyes: Negative for discharge, redness and visual disturbance. Respiratory: Negative for cough, chest tightness, shortness of breath and wheezing. Cardiovascular: Negative for chest pain, palpitations and leg swelling. Gastrointestinal: Negative for abdominal pain, constipation, diarrhea, nausea and vomiting. Endocrine: Negative for cold intolerance and heat intolerance. Genitourinary: Negative for flank pain, frequency and urgency. Musculoskeletal: Negative for back pain, gait problem and neck pain. Skin: Negative for rash and wound. Neurological: Negative for dizziness, tremors, syncope, numbness and headaches. Hematological: Does not bruise/bleed easily. Psychiatric/Behavioral: Positive for dysphoric mood. Negative for confusion, sleep disturbance and suicidal ideas. The patient is nervous/anxious. Past Medical History: Diagnosis Date Decreased libido 10/27/2022 Encounter for gynecological examination (general) (routine) without abnormal findings 11/16/2023 WNL Numbness of left foot 10/27/2022 Past Surgical History: Procedure Laterality Date APPENDECTOMY COLONOSCOPY 11/16/2017 DR. PLEITEZ; NORMAL; REPEAT AT SCREEENING AGE ESOPHAGOGASTRODUODENOSCOPY 11/16/2017 DR. PLEITEZ; Mild chronic gastritis. Focal instinal metaplasia. Negative for H. pylori organisms WISDOM TOOTH EXTRACTION Family History Problem Relation Name Age of Onset Hypertension Mother No Known Problems Father Social History Tobacco Use Smoking status: Never Smokeless tobacco: Never Vaping Use Vaping status: Never Used Substance Use Topics Alcohol use: Never Drug use: Never Allergies Allergen Reactions Diclofenac Rash and Unknown Current Outpatient Medications Medication Sig Dispense Refill albuterol 90 mcg/actuation inhaler Inhale 1-2 puffs every 4 hours if needed for wheezing or shortness of breath. 8.5 g 0 busPIRone (Buspar) 30 mg tablet Take 1 tablet (30 mg) by mouth 2 times a day. 60 tablet 5 Deblitane 0.35 mg tablet Take 1 tablet (0.35 mg) by mouth once daily. losartan (Cozaar) 50 mg tablet Take 1 tablet (50 mg) by mouth 2 times a day. 60 tablet 11 omeprazole (PriLOSEC) [address] capsule Take 1 capsule (20 mg) by mouth 2 times a day before meals. 60 capsule 11 vilazodone (Viibryd) 20 mg tablet Take 1 tablet (20 mg) by mouth once daily. 30 tablet 5 cyanocobalamin (Vitamin B-12) 1,000 mcg tablet Take 1 tablet (1,000 mcg) by mouth once daily. 30 tablet 11 dicyclomine (Bentyl) 10 mg capsule Take 1 capsule (10 mg) by mouth 3 times a day. lisdexamfetamine (Vyvanse) 50 mg capsule Take 1 capsule (50 mg) by mouth once daily. 30 capsule 0 No current facility-administered medications for this visit. Objective BP 127/86 Pulse 96 Ht 1.651 m (5' 5) Wt (!) 170 kg (374 lb) BMI 62.24 kg/m Physical Exam Vitals reviewed. Constitutional: Appearance: Normal appearance. She is obese. HENT: Head: Normocephalic. Right Ear: External ear normal. Left Ear: External ear normal. Nose: Nose normal. No congestion or rhinorrhea. Mouth/Throat: Mouth: Mucous membranes are moist. Eyes: Extraocular Movements: Extraocular movements intact. Conjunctiva/sclera: Conjunctivae normal. Pupils: Pupils are equal, round, and reactive to light. Cardiovascular: Rate and Rhythm: Normal rate and regular rhythm. Pulses: Normal pulses. Pulmonary: Effort: Pulmonary effort is normal. Breath sounds: Normal breath sounds. Abdominal: General: Bowel sounds are normal. Palpations: Abdomen is soft. Tenderness: There is no abdominal tenderness. There is no right CVA tenderness or left CVA tenderness. Musculoskeletal: General: No tenderness. Normal range of motion. Cervical back: Normal range of motion and neck supple. No tenderness. Skin: General: Skin is warm and dry. Neurological: General: No focal deficit present. Mental Status: She is alert and oriented to person, place, and time. Psychiatric: Mood and Affect: Mood normal. Behavior: Behavior normal. Testing Labs at [facility] November 2023 CBC -hgb 11.9* - rest approp CMP -glucose 109* - rest approp Hgba1c 5.2 Mag 2.0 Iron 51 (50-170) Iron sat 11.9* Ferritin 10 (8-252) Lipid -tchol 223* -TG 144 -HDL 47 -LDL 147* B12 339 TSH/free t4 - WNl Labs at [facility] Apr 2023 Lipid -tchlo 198 -TG 86 -HDL 45 -LDL 136* CMP -glucose 119* -rest approp Ferritin 22 Iron 52 CBC - approp B12 397 Hgba1c 5.1 Labs at [facility] October 2022 CMP -glucose 102 -rest approp Lipid -tchol 256* -TG 258* -HDL 45 -LDL 159* B12 503 CBC - Wnl Impression MDM 1) COMPLEXITY: MORE THAN 1 STABLE CHRONIC CONDITION ADDRESSED 2)DATA: TESTS INTERPRETED AND OR ORDERED, TOOK INDEPENDENT HISTORY OR RECORDS REVIEWED 3)RISK: MODERATE RISK DUE TO NATURE OF MEDICAL CONDITIONS/COMORBIDITY OR MEDICATIONS ORDERED OR SURGICAL OR PROCEDURE REFERRAL, . Reviewed labs and Testing on file Patient to follow diet low in cholesterol, fat, and sodium. Patient is advised to increase Exercise. Patient is recommended to lose weight. Reviewed Meds and discussed common side effects Continue as directed Patient is strongly advised to be compliant with recommendations. Return to Clinic sooner if needed. Patient denies further questions/concerns at this time Assessment/Plan Problem List Items Addressed This Visit ICD-10-CM Benign essential hypertension - Primary I10 Relevant Orders CBC and Auto Differential Comprehensive Metabolic Panel Hemoglobin A1C Lipid Panel Iron and TIBC Ferritin Magnesium Vitamin B12 Depression, major, single episode, mild (CMS-HCC) F32.0 JESSICA (generalized anxiety disorder) F41.1 Glucose intolerance (impaired glucose tolerance) R73.02 Relevant Orders CBC and Auto Differential Comprehensive Metabolic Panel Hemoglobin A1C Lipid Panel Iron and TIBC Ferritin Magnesium Vitamin B12 Hypercholesterolemia E78.00 Relevant Orders Lipid Panel Low ferritin R79.0 Relevant Orders Iron and TIBC Ferritin Low vitamin B12 level R79.89 Relevant Medications cyanocobalamin (Vitamin B-12) injection 1,000 mcg (Completed) cyanocobalamin (Vitamin B-12) 1,000 mcg tablet Other Relevant Orders Vitamin B12 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 (Multi) E66.1, Z68.44 FU in 6 mo with labs at [place] fasting and [facility]: [phone]) 967-716607-12-2024 History of Present illness Narrative* Lennie Garcia LPN - 12/08/2023 2:20 PM EDT Nurse Note: Review of Systems Constitutional: Negative for fatigue and fever. HENT: Negative for congestion, ear pain and sore throat. Eyes: Negative for pain and redness. Respiratory: Negative for cough and shortness of breath. Cardiovascular: Negative for chest pain and palpitations. Gastrointestinal: Negative for abdominal pain, constipation, diarrhea, nausea and vomiting. Genitourinary: Negative for difficulty urinating and dysuria. Musculoskeletal: Negative for arthralgias and myalgias. Skin: Negative for rash and wound. Neurological: Negative for dizziness and headaches. All other systems reviewed and are negative. * Fabi Kristal, [employer]IP[employer] - 12/08/2023 2:20 PM EDT Chief Complaint Patient presents with Fatigue Eating Disorder HPI: Regarding Weight Gain: Yemi Jc is a 27 y.o. y.o. female who presents today with the complaint of obesity. She states that she has had gradual weight gain and would like to have assistance with weight loss. She has also been working on weight loss by: Diet: does have binge eating diagnosis, eats when she's not hungry, eats excessive amounts in a short period of time, feels remorse over this eating pattern, has been binging at least every other day, Update 09/07/23: stopped counseling last month because she felt like they weren't making any progress, she was working through the Emotional Eating workbook with her counselor and felt good at first but then felt like it was less helpful, she is looking into different counselors in [place], she has also started viibryd and feels like this is helping as well, reports still has binging episodes on vyvanse but these aren't as frequent as they were before medication, at this point feels like she needs to work through her stress. Update 12/08/23: has been busy with work and just started school, weight is stable, she does feel like medication helps with appetite and binging, trying to cook as much as she can, limiting portions sizes, trying to be mindful Exercise: just signed up with co-worker at [employer]. Barriers: binge eater, emotional eating She has used prescription medication for weight loss in the past. Including: Adipex She denies heart disease She does have: see problem list Past Medical History Includes Her Wt Readings from Last 3 Encounters: 12/08/23 (!) 170.3 kg (375 lb 6.4 oz) 09/07/23 (!) 170.7 kg (376 lb 6.4 oz) 05/25/23 (!) 171.1 kg (377 lb 3.2 oz) and current Body mass index is 62.47 kg/m . Reviewed today. Hypertension: reports is usually controlled on medications, blood pressure this morning was 130/88,reports forgot to take medication today. ROS: Constitutional: Negative for fatigue and fever. HENT: Negative for congestion, ear pain and sore throat. Eyes: Negative for pain and redness. Respiratory: Negative for cough and shortness of breath. Cardiovascular: Negative for chest pain and palpitations. Gastrointestinal: Negative for abdominal pain, constipation, diarrhea, nausea and vomiting. Genitourinary: Negative for difficulty urinating and dysuria. Musculoskeletal: Negative for arthralgias and myalgias. Skin: Negative for rash and wound. Neurological: Negative for dizziness and headaches. All other systems reviewed and are negative. Past medical/family/social history: reviewed and updated, see documented in patient's chart. Physical Exam: BP 144/86 Pulse 94 Ht 1.651 m (5' 5) Wt (!) 170.3 kg (375 lb 6.4 oz) BMI 62.47 kg/m Smoking Status Never Body mass index is 62.47 kg/m . Physical Exam Constitutional: Appearance: She is obese. HENT: Head: Normocephalic and atraumatic. Eyes: Conjunctiva/sclera: Conjunctivae normal. Pupils: Pupils are equal, round, and reactive to light. Cardiovascular: Rate and Rhythm: Normal rate and regular rhythm. Heart sounds: Normal heart sounds. No murmur heard. Pulmonary: Effort: Pulmonary effort is normal. Breath sounds: Normal breath sounds. Musculoskeletal: Cervical back: Normal range of motion and neck supple. Skin: General: Skin is warm and dry. Neurological: Mental Status: She is alert and oriented to person, place, and time. Assessment/Plan: 1. Binge eating disorder Continue on current dose of medication, continue mindful eating, work on self care. - Lisdexamfetamine Dimesylate (Vyvanse) 50 MG capsule; Take 1 capsule by mouth daily. Dispense: 30 capsule; Refill: 0 - Lisdexamfetamine Dimesylate (Vyvanse) 50 MG capsule; Take 1 capsule by mouth daily. Dispense: 30 capsule; Refill: 0 - Lisdexamfetamine Dimesylate (Vyvanse) 50 MG capsule; Take 1 capsule by mouth daily. Dispense: 30 capsule; Refill: 0 2. Benign essential hypertension Suspect elevated today due to lack of medication, monitor pressure while on vyvanse, continue bloodpressure medications, continue to work on lifestyle changes. Orders and follow up as documented in patient record; We reviewed medications and possible side effects. All questions were answered; Patient was advised to call with any questions or concerns. If symptoms worsen patient was advised to follow up in our office or the Emergency Dept. Benefits, Risks, Contraindications, and Complications of recommended treatments were explained the patient understands and agrees to proceed with plan. MADDIE Tuttle 12/08/2023 documented in this [facility]04-11-2024 History of Present illness Narrative* Lennie Garcia LPN - 09/07/2023 3:20 PM EDT Nurse Note: Review of Systems Constitutional: Negative for fatigue and fever. HENT: Negative for congestion, ear pain and sore throat. Eyes: Negative for pain and redness. Respiratory: Negative for cough and shortness of breath. Cardiovascular: Negative for chest pain and palpitations. Gastrointestinal: Negative for abdominal pain, constipation, diarrhea, nausea and vomiting. Genitourinary: Negative for difficulty urinating and dysuria. Musculoskeletal: Negative for arthralgias and myalgias. Skin: Negative for rash and wound. Neurological: Negative for dizziness and headaches. All other systems reviewed and are negative. * MADDIE Tuttle - 09/07/2023 3:20 PM EDT Chief Complaint Patient presents with Weight Management Session Fatigue HPI: Regarding Weight Gain: Yemi Jc is a 27 y.o. y.o. female who presents today with the complaint of obesity. She states that she has had gradual weight gain and would like to have assistance with weight loss. She has also been working on weight loss by: Diet: does have binge eating diagnosis, eats when she's not hungry, eats excessive amounts in a short period of time, feels remorse over this eating pattern, has been binging at least every other day, Update : stopped counseling last month because she felt like they weren't making any progress, she was working through the Emotional Eating workbook with her counselor and felt good at first but then felt like it was less helpful, she is looking into different counselors in [place], she hasalso started viibryd and feels like this is helping as well, reports still has binging episodes on vyvanse but these aren't as frequent as they were before medication, at this point feels like she needs to work through her stress. Exercise: has been inconsistent due to second job Barriers: binge eater, emotional eating She has used prescription medication for weight loss in the past. Including: Adipex She denies heart disease She does have: see problem list Past Medical History Includes Her Wt Readings from Last 3 Encounters: 09/07/23 (!) 170.7 kg (376 lb 6.4 oz) 05/25/23 (!) 171.1 kg (377 lb 3.2 oz) 02/15/23 (!) 168.1 kg (370 lb 9.6 oz) and current Body mass index is 62.64 kg/m . Reviewed today. Hypertension: reports is usually controlled on medications, blood pressure this morning was 130/88,admits today was a stressful day at work. ROS: Constitutional: Negative for fatigue and fever. HENT: Negative for congestion, ear pain and sore throat. Eyes: Negative for pain and redness. Respiratory: Negative for cough and shortness of breath. Cardiovascular: Negative for chest pain and palpitations. Gastrointestinal: Negative for abdominal pain, constipation, diarrhea, nausea and vomiting. Genitourinary: Negative for difficulty urinating and dysuria. Musculoskeletal: Negative for arthralgias and myalgias. Skin: Negative for rash and wound. Neurological: Negative for dizziness and headaches. All other systems reviewed and are negative. Past medical/family/social history: reviewed and updated, see documented in patient's chart. Physical Exam: BP (!) 148/91 Pulse 94 Ht 1.651 m (5' 5) Wt (!) 170.7 kg (376 lb 6.4 oz) BMI 62.64 kg/m Smoking Status Never Body mass index is 62.64 kg/m . Physical Exam Constitutional: Appearance: She is obese. HENT: Head: Normocephalic and atraumatic. Eyes: Conjunctiva/sclera: Conjunctivae normal. Pupils: Pupils are equal, round, and reactive to light. Cardiovascular: Rate and Rhythm: Normal rate and regular rhythm. Heart sounds: Normal heart sounds. No murmur heard. Pulmonary: Effort: Pulmonary effort is normal. Breath sounds: Normal breath sounds. Musculoskeletal: Cervical back: Normal range of motion and neck supple. Skin: General: Skin is warm and dry. Neurological: Mental Status: She is alert and oriented to person, place, and time. Assessment/Plan: 1. Binge eating disorder Continue on current dose of medication, continue with counselor and other modalities to help with this. - Lisdexamfetamine Dimesylate (Vyvanse) 50 MG capsule; Take 1 capsule by mouth daily. Dispense: 30 capsule; Refill: 0 - Lisdexamfetamine Dimesylate (Vyvanse) 50 MG capsule; Take 1 capsule by mouth daily. Dispense: 30 capsule; Refill: 0 - Lisdexamfetamine Dimesylate (Vyvanse) 50 MG capsule; Take 1 capsule by mouth daily. Dispense: 30 capsule; Refill: 0 2. Benign essential hypertension Monitor pressure while on vyvanse, continue blood pressure medications, continue to work on lifestyle changes. Orders and follow up as documented in patient record; We reviewed medications and possible side effects. All questions were answered; Patient was advised to call with any questions or concerns. If symptoms worsen patient was advised to follow up in our office or the Emergency Dept. Benefits, Risks, Contraindications, and Complications of recommended treatments were explained the patient understands and agrees to proceed with plan. MADDIE Tuttle 09/07/2023 documented in this [facility]03-16-2024 History of Present illness Narrative* MADDIE Merida - 08/12/2023 8:10 AM EDT [facility] MADDIE Merida Visit Note - 08/12/2023 9:15 AM This note was generated with voice recognition software and may contain errors including spelling, grammar, syntax, and misrecognization of what was dictated. Patient: Yemi cJ, , 28 y.o., female PCP: Ashlyn Gates PA-C ALLERGIES: Allergies Allergen Reactions Diclofenac Rash and Unknown CURRENT MEDICATIONS: Current Outpatient Medications Medication Instructions albuterol 90 mcg/actuation inhaler 1-2 puffs, inhalation, Every 4 hours PRN benzonatate (TESSALON) 100-200 mg, oral, Every 8 hours PRN, Do not crush or chew. busPIRone (BUSPAR) 30 mg, oral, 2 times daily citalopram (CELEXA) 40 mg, oral, Daily cyanocobalamin (Vitamin B-12) 1,000 mcg tablet 1 tablet, oral, Daily Deblitane 0.35 mg tablet 1 tablet, oral, Daily dicyclomine (BENTYL) 10 mg, oral, 3 times daily drospirenone-ethinyl estradioL (Klaus, Gianvi) 3-0.02 mg tablet 1 tablet, oral, Daily lisdexamfetamine (VYVANSE) 50 mg, oral, Daily RT losartan (COZAAR) 50 mg, oral, 2 times daily omeprazole (PRILOSEC) 20 mg, oral, 2 times daily before meals vilazodone (VIIBRYD) 10 mg, oral, Daily vilazodone (VIIBRYD) 20 mg, oral, Daily PAST MEDICAL HX: Patient Active Problem List Diagnosis Acanthosis nigricans Benign essential hypertension Chronic low back pain Fibromyalgia Degeneration of intervertebral disc of lumbar region Depression, major, single episode, mild (CMS/HCC) Dyspepsia JESSICA (generalized anxiety disorder) Glucose intolerance (impaired glucose tolerance) Hypercholesterolemia Low ferritin Low vitamin B12 level Lumbar radiculitis Lumbosacral radiculitis 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 (CMS/HCC) Prolapsed lumbar disc Sacroiliitis (CMS/HCC) SURGICAL HX: Past Surgical History: Procedure Laterality Date APPENDECTOMY COLONOSCOPY 11/16/2017 DR. PLEITEZ; NORMAL; REPEAT AT SCREEENING AGE ESOPHAGOGASTRODUODENOSCOPY 11/16/2017 DR. PLEITEZ; Mild chronic gastritis. Focal instinal metaplasia. Negative for H. pylori organisms WISDOM TOOTH EXTRACTION FAMILY HX: No pertinent history. SOCIAL HX: reports that she has never smoked. She has never used smokeless tobacco. CHIEF COMPLAINT: Chief Complaint Patient presents with URI CHEST CONGESTION, COUGHING UP BROWN MUCUS , SOB, X 2 DAYS DAYQUIL NO RELIEF HISTORY OF PRESENT ILLNESS: The history was obtained from patient. Yemi is a 28 y.o. female, who presents with a chief complaint of body aches, a productive cough (green/brown phlegm), fatigue, nasal congestion/pressure (green/brown mucus), a slightly sore throat, headaches, and intermittent wh eezing - sxs started yesterday. Denies any fever/chills, ear pain, abdominal pain, chest pain, rashes, urinary symptoms, nausea/vomiting, and diarrhea. Denies any lightheadedness or dizziness; no changes in mental status. No swelling in legs. Appetite is normal; is able to eat and drink fluids without difficulty; denies loss of sense of taste or smell. Reports symptoms have gotten worse since onset. Has been taking Sudafed, Dayquil, and Nyquil without much relief; no other [id number] medications or home remedies for symptom management. No known ill contacts but she recently attended a large concert. Last known COVID infection was in ~01/2023. Is not a smoker. No known history of asthma/COPD/respiratory issues. No recent antibiotic use. REVIEW OF SYSTEMS: 10 systems reviewed negative with exception of history of present illness as listed above. TODAY'S VITALS: BP (!) 164/114 Pulse 100 Temp 36.7 C (98.1 F) Resp 20 Ht 1.651 m (5' 5) Wt (!) 171 kg (376 lb) LMP 07/14/2023 (Approximate) SpO2 100% BMI 62.57 kg/m Recheck BP: 158/115. Reports she did not take her BP medication yet today, as she was not feeling well, but she monitors BP closely at home and it is always well-controlled when I take my BP medication consistently. Reports is asymptomatic. PHYSICAL EXAMINATION: General: Mildly ill-appearing, well nourished female; alert and oriented; in no acute distress. Sitting comfortably on exam table. Non-dyspneic. Eyes: Pupils equal, round and reactive to light. No conjunctival erythema; no scleral icterus. HENT: No frontal or maxillary sinus tenderness; + audible nasal congestion. Airway patent, TMs and ear canals clear/unremarkable bilaterally. Nasal mucosa mildly injected and edematous. Oral mucosa moist. Posterior pharynx mildly injected but without vesicles or oropharyngeal exudate aside from PND. Uvula is midline. Managing oral secretions without difficulty. Neck: Supple. Mildly tender, mobile anterior cervical lymphadenopathy bilat. Trachea is midline. Respiratory: Respirations easy and unlabored, Breath sounds equal. Lungs are clear to auscultation;no wheezes, rhonchi, or rales; has good air movement throughout. + productive cough noted. Non-dyspneic with ambulation; able to maintain SpO2. Cardiovascular: Normal rate, Regular rhythm. Normal S1S2. No m/r/g. No peripheral edema. Gastrointestinal: Soft, non-tender, non-distended; no palpable masses or organomegaly. Bowel soundsnormoactive. Musculoskeletal: Grossly normal; appropriate for age. Integumentary: [place], warm, dry, and intact. No rashes or skin discoloration appreciated. Good skin turgor. Neurologic: Alert and oriented, no gross deficits. Cognition and Speech: Oriented, Speech clear and coherent. Psychiatric: Cooperative, Appropriate mood & affect. Medical Decision Making LABORATORY or RADIOLOGICAL IMAGING ORDERS/RESULTS: COVID/Influenza PCR tests done - results pending. IMPRESSION/PLAN: Course: Worsening; stable 1. Acute viral syndrome - POCT BD Veritor Covid-19 Ag manually resulted - POCT Influenza A/B manually resulted - benzonatate (Tessalon) 100 mg capsule; Take 1-2 capsules (100-200 mg) by mouth every 8 hours if needed for cough. Do not crush or chew. Dispense: 60 capsule; Refill: 0 - albuterol 90 mcg/actuation inhaler; Inhale 1-2 puffs every 4 hours if needed for wheezing or shortness of breath. Dispense: 8.5 g; Refill: 0 No red flags on exam today, but stressed importance of close monitoring and follow up. BP today wasmarkedly elevated but pt reports did not take her BP medication yet today, and recent Sudafed/Dayquil/Nyquil also likely contributing. Urged to take medications ROYAL, recheck BP, and seek care if BP r emains elevated or if she becomes symptomatic at any point. Patient stated understanding and agreed. I have reviewed the COVID-19 algorithm, and counseled pt on COVID-19 current recommendations. Symptoms consistent with viral syndrome, but reviewed other potential etiologies, and nasal swab obtained (using proper PPE) for influenza/COVID-19 testing. No antibiotics indicated at this point, but will start cough medication (benzonatate) and albuterol inhaler for PRN use. Instructed to push fluids, rest, and to use appropriate over the counter medications as needed for management of symptom- saline nasal spray, plain Mucinex, and vaporizer may be helpful; urged avoidance of decongestants. Advised can review test results on the portal and office will contact pt within the next 24-48 hours. Reviewed instructions for self-isolation and continued monitoring - must self-isolate at home until a negative test result is returned. Reviewed red flags to monitor for, counseled on potential adverse reactions of treatments, expectations for improvement in sxs, and advised to follow-up with primary care provider in 3-5 days if symptoms persist, or to seek care sooner if worsening or if any additional concerns/red flags develop. Patient agreed with plan of care; questions were encouraged and answered. MADDIE Merida Advanced Practice Provider [facility] Work Phone: [phone] 322-134812-28-2023 History of Present illness Narrative* Kim Guzman - 05/25/2023 1:40 PM EST Nurse Note: Review of Systems Constitutional: Negative for fatigue and fever. HENT: Negative for congestion, ear pain and sore throat. Eyes: Negative for pain and redness. Respiratory: Negative for cough and shortness of breath. Cardiovascular: Negative for chest pain and palpitations. Gastrointestinal: Negative for abdominal pain, constipation, diarrhea, nausea and vomiting. Genitourinary: Negative for difficulty urinating and dysuria. Musculoskeletal: Negative for arthralgias and myalgias. Skin: Negative for rash and wound. Neurological: Negative for dizziness and headaches. All other systems reviewed and are negative. * MADDIE Tuttle - 05/25/2023 1:40 PM EST Chief Complaint Patient presents with Weight Management Session Fatigue HPI: Regarding Weight Gain: Yemi Jc is a 27 y.o. y.o. female who presents today with the complaint of obesity. She states that she has had gradual weight gain and would like to have assistance with weight loss. She has also been working on weight loss by: Diet: does have binge eating diagnosis, eats when she's not hungry, eats excessive amounts in a short period of time, feels remorse over this eating pattern, has been binging at least every other day, has been out of vyvanse for the last couple weeks and has noticed a big difference in appetite andbinging without it, still doing counseling at [facility] and working through the Emotional Eating workbook with her counselor, reports still has binging episodes but these aren't as frequent as they were before medication.. vyvanse dose remained the same last visit, she is currently working with her counselor on how to help with cravings in the evenings, feels like counseling is helping, still is trying to do meal planning but got a second job which is taking up her free time. Exercise: has been inconsistent due to second job Barriers: binge eater, emotional eating She has used prescription medication for weight loss in the past. Including: Adipex She denies heart disease She does have: see problem list Past Medical History Includes Her Wt Readings from Last 3 Encounters: 05/25/23 (!) 171.1 kg (377 lb 3.2 oz) 02/15/23 (!) 168.1 kg (370 lb 9.6 oz) 11/24/22 (!) 165.5 kg (364 lb 12.8 oz) and current Body mass index is 62.77 kg/m . Reviewed today. Hypertension: reports is usually controlled on current medication but recently ran out, has been checking this at work and was running normal, has put in a call to her PCP for refills, denies chest pain, shortness of breath, leg swelling. ROS: Constitutional: Negative for fatigue and fever. HENT: Negative for congestion, ear pain and sore throat. Eyes: Negative for pain and redness. Respiratory: Negative for cough and shortness of breath. Cardiovascular: Negative for chest pain and palpitations. Gastrointestinal: Negative for abdominal pain, constipation, diarrhea, nausea and vomiting. Genitourinary: Negative for difficulty urinating and dysuria. Musculoskeletal: Negative for arthralgias and myalgias. Skin: Negative for rash and wound. Neurological: Negative for dizziness and headaches. All other systems reviewed and are negative. Past medical/family/social history: reviewed and updated, see documented in patient's chart. Physical Exam: BP 140/81 Pulse 84 Wt (!) 171.1 kg (377 lb 3.2 oz) BMI 62.77 kg/m Smoking Status Never Body mass index is 62.77 kg/m . Physical Exam Constitutional: Appearance: She is obese. HENT: Head: Normocephalic and atraumatic. Eyes: Conjunctiva/sclera: Conjunctivae normal. Pupils: Pupils are equal, round, and reactive to light. Cardiovascular: Rate and Rhythm: Normal rate and regular rhythm. Heart sounds: Normal heart sounds. No murmur heard. Pulmonary: Effort: Pulmonary effort is normal. Breath sounds: Normal breath sounds. Musculoskeletal: Cervical back: Normal range of motion and neck supple. Skin: General: Skin is warm and dry. Neurological: Mental Status: She is alert and oriented to person, place, and time. Assessment/Plan: 1. Binge eating disorder Continue on current dose of medication, continue with counselor and other modalities to help with this. - Lisdexamfetamine Dimesylate (Vyvanse) 50 MG capsule; Take 1 capsule by mouth daily. Dispense: 30 capsule; Refill: 0 - Lisdexamfetamine Dimesylate (Vyvanse) 50 MG capsule; Take 1 capsule by mouth daily. Dispense: 30 capsule; Refill: 0 - Lisdexamfetamine Dimesylate (Vyvanse) 50 MG capsule; Take 1 capsule by mouth daily. Dispense: 30 capsule; Refill: 0 2. Benign essential hypertension Monitor pressure while on vyvanse, continue blood pressure medications, continue to work on lifestyle changes. Orders and follow up as documented in patient record; We reviewed medications and possible side effects. All questions were answered; Patient was advised to call with any questions or concerns. If symptoms worsen patient was advised to follow up in our office or the Emergency Dept. Benefits, Risks, Contraindications, and Complications of recommended treatments were explained the patient understands and agrees to proceed with plan. MADDIE Tuttle 05/25/2023 documented in this [facility]12-26-2023 History of Present illness Narrative* Ashlyn Gates PA-C - 05/23/2023 2:00 PM EST Subjective Patient ID: Yemi Morejon is a 28 y.o. female who presents for Follow-up (6 MONTH FOLLOW UP + LABS @ [facility] SCANNED IN MEDIA. /PT WANTS TO SEE ABOUT CHANGING HER DEPRESSION/ANXIETY MEDS. FEELS LIKE HER SEX DRIVE IS DECREASING) HPI to review labs Med check HTN- on meds -- home readings /work readings are approp - will cont to monitor B12 - on injection on occasion and OTC supplement - admits not taking faithfully mood - stable on buspar and celexa - dec libido and is interested in changing mood med --effexor - didn't work --prozac - didn't work --wellbutrin - was on with someone for wt loss - inc depression, nightmares -- viibryd pt thinks she did ok in the past - - discussed taking celexa 20 mg x 1 week while doing the viibryd 10 mg x 1 week then dec celexa to every other day x 1 week while inc viibryd to 20 mg daily then stop the celexa and cont the viibryd daily 20 mg GERD - improved back on PPI pain - stable - following with dr keenan wt loss - following with specialists and has been on/off adipex Preventative testing PAP - [facility] - visit is set for tomorrow mammo - suggest age 40 colonoscopy - suggest age 45-50 DEXA - suggest age 50-55 Fall - Neg October 2022 PHQ2 - Neg October 2022 Patient Active Problem List Diagnosis Acanthosis nigricans Benign essential hypertension Chronic low back pain Fibromyalgia Degeneration of intervertebral disc of lumbar region Depression, major, single episode, mild (CMS/HCC) Dyspepsia JESSICA (generalized anxiety disorder) Glucose intolerance (impaired glucose tolerance) Hypercholesterolemia Low ferritin Low vitamin B12 level Lumbar radiculitis Lumbosacral radiculitis 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 Negative for chills and fever. HENT: Negative for congestion, rhinorrhea, sinus pain, sore throat and tinnitus. Eyes: Negative for discharge, redness and visual disturbance. Respiratory: Negative for cough, chest tightness, shortness of breath and wheezing. Cardiovascular: Negative for chest pain, palpitations and leg swelling. Gastrointestinal: Negative for abdominal pain, constipation, diarrhea, nausea and vomiting. Endocrine: Negative for cold intolerance and heat intolerance. Genitourinary: Negative for flank pain, frequency and urgency. Dec libido Musculoskeletal: Negative for back pain, gait problem and neck pain. Skin: Negative for rash and wound. Neurological: Negative for dizziness, tremors, syncope, numbness and headaches. Hematological: Does not bruise/bleed easily. Psychiatric/Behavioral: Positive for dysphoric mood. Negative for confusion, sleep disturbance and suicidal ideas. The patient is nervous/anxious. Past Medical History: Diagnosis Date Decreased libido 10/27/2022 Encounter for gynecological examination (general) (routine) without abnormal findings Pap test, as part of routine gynecological examination Numbness of left foot 10/27/2022 Past Surgical History: Procedure Laterality Date APPENDECTOMY COLONOSCOPY 11/16/2017 DR. PLEITEZ; NORMAL; REPEAT AT SCREEENING AGE ESOPHAGOGASTRODUODENOSCOPY 11/16/2017 DR. PLEITEZ; Mild chronic gastritis. Focal instinal metaplasia. Negative for H. pylori organisms WISDOM TOOTH EXTRACTION Family History Problem Relation Name Age of Onset Hypertension Mother No Known Problems Father Social History Tobacco Use Smoking status: Never Smokeless tobacco: Never Vaping Use Vaping Use: Never used Substance Use Topics Alcohol use: Never Drug use: Never Allergies Allergen Reactions Diclofenac Rash and Unknown Current Outpatient Medications Medication Sig Dispense Refill busPIRone (Buspar) 30 mg tablet Take 1 tablet (30 mg) by mouth 2 times a day. 60 tablet 5 citalopram (CeleXA) 40 mg tablet Take 1 tablet (40 mg) by mouth once daily. 30 tablet 0 cyanocobalamin (Vitamin B-12) 1,000 mcg tablet Take 1 tablet (1,000 mcg) by mouth once daily. Deblitane 0.35 mg tablet Take 1 tablet (0.35 mg) by mouth once daily. dicyclomine (Bentyl) 10 mg capsule Take 1 capsule (10 mg) by mouth 3 times a day. drospirenone-ethinyl estradioL (Klaus, Gianvi) 3-0.02 mg tablet Take 1 tablet by mouth once daily. losartan (Cozaar) 50 mg tablet Take 1 tablet (50 mg) by mouth 2 times a day. 60 tablet 11 omeprazole (PriLOSEC) [address] capsule Take 1 capsule (20 mg) by mouth 2 times a day before meals. 60 capsule 11 albuterol 90 mcg/actuation inhaler Inhale 2 puffs every 6 hours if needed for shortness of breath or wheezing. gabapentin (Neurontin) 300 mg capsule Take 1 capsule (300 mg) by mouth 2 times a day. lisdexamfetamine (Vyvanse) 50 mg capsule Take 1 capsule (50 mg) by mouth once daily. 30 capsule 0 tiZANidine (Zanaflex) 2 mg tablet Take 1 tablet (2 mg) by mouth 2 times a day. No current facility-administered medications for this visit. Objective BP (!) 144/93 Resp (!) 96 Ht 1.651 m (5' 5) Wt (!) 171 kg (377 lb) SpO2 95% BMI 62.74 kg/m Physical Exam Vitals reviewed. Constitutional: Appearance: Normal appearance. She is obese. HENT: Head: Normocephalic. Right Ear: External ear normal. Left Ear: External ear normal. Nose: Nose normal. No congestion or rhinorrhea. Mouth/Throat: Mouth: Mucous membranes are moist. Eyes: Extraocular Movements: Extraocular movements intact. Conjunctiva/sclera: Conjunctivae normal. Pupils: Pupils are equal, round, and reactive to light. Cardiovascular: Rate and Rhythm: Normal rate and regular rhythm. Pulses: Normal pulses. Pulmonary: Effort: Pulmonary effort is normal. Breath sounds: Normal breath sounds. Abdominal: General: Bowel sounds are normal. Palpations: Abdomen is soft. Tenderness: There is no abdominal tenderness. There is no right CVA tenderness or left CVA tenderness. Musculoskeletal: General: No tenderness. Normal range of motion. Cervical back: Normal range of motion and neck supple. No tenderness. Skin: General: Skin is warm and dry. Neurological: General: No focal deficit present. Mental Status: She is alert and oriented to person, place, and time. Psychiatric: Mood and Affect: Mood normal. Behavior: Behavior normal. Labs at [facility] Apr 2023 Lipid -tchlo 198 -TG 86 -HDL 45 -LDL 136* CMP -glucose 119* -rest approp Ferritin 22 Iron 52 CBC - approp B12 397 Hgba1c 5.1 Labs at [facility] October 2022 CMP -glucose 102 -rest approp Lipid -tchol 256* -TG 258* -HDL 45 -LDL 159* B12 503 CBC - Wnl Impression MDM 1) COMPLEXITY: MORE THAN 1 STABLE CHRONIC CONDITION ADDRESSED 2)DATA: TESTS INTERPRETED AND OR ORDERED, TOOK INDEPENDENT HISTORY OR RECORDS REVIEWED 3)RISK: MODERATE RISK DUE TO NATURE OF MEDICAL CONDITIONS/COMORBIDITY OR MEDICATIONS ORDERED OR SURGICAL OR PROCEDURE REFERRAL, . Reviewed labs and Testing on file Patient to follow diet low in cholesterol, fat, and sodium. Patient is advised to increase Exercise. Patient is recommended to lose weight. Reviewed Meds and discussed common side effects Continue as directed Mood - consider dec libido secondary to celexa - cont buspar but will taper off celexa and start onviibryd Cont to work on things naturally HTN - home readings are to goal - given mood and med changes - will hold off on further Bp changes at this time Low B 12- taking daily supplement faithfully Lower ferritin - consider start OTC few times /week Patient is strongly advised to be compliant with recommendations. Return to Clinic sooner if needed. Patient denies further questions/concerns at this time Assessment/Plan Problem List Items Addressed This Visit ICD-10-CM Benign essential hypertension - Primary I10 Fibromyalgia M79.7 Depression, major, single episode, mild (CMS/[facility]) F32.0 Relevant Medications vilazodone (Viibryd) 10 mg tablet vilazodone (Viibryd) 20 mg tablet JESSICA (generalized anxiety disorder) F41.1 Relevant Medications vilazodone (Viibryd) 10 mg tablet vilazodone (Viibryd) 20 mg tablet Glucose intolerance (impaired glucose tolerance) R73.02 Relevant Orders CBC and Auto Differential Comprehensive Metabolic Panel Hemoglobin A1C Hypercholesterolemia E78.00 Relevant Orders CBC and Auto Differential Comprehensive Metabolic Panel Lipid Panel Thyroid Stimulating Hormone Thyroxine, Free Magnesium Low ferritin R79.0 Relevant Orders Iron and TIBC Ferritin Low vitamin B12 level R79.89 Relevant Orders Vitamin B12 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 (CMS/[facility]) E66.1, Z68.44 Other Visit Diagnoses Codes Decreased libido R68.82 FU in 1-2 mo with med check /mood check FU in 6 mo with labs at [place] fasting and med check documented in this [facility] Work Phone: 1(805) 861-614209-20-2023 History of Present illness Narrative* Kim Guzman - 02/15/2023 8:00 AM EDT Nurse Note: Review of Systems Constitutional: Negative for fatigue and fever. HENT: Negative for congestion, ear pain and sore throat. Eyes: Negative for pain and redness. Respiratory: Negative for cough and shortness of breath. Cardiovascular: Negative for chest pain and palpitations. Gastrointestinal: Negative for abdominal pain, constipation, diarrhea, nausea and vomiting. Genitourinary: Negative for difficulty urinating and dysuria. Musculoskeletal: Negative for arthralgias and myalgias. Skin: Negative for rash and wound. Neurological: Negative for dizziness and headaches. All other systems reviewed and are negative. * Fabi Giraldo APRN-[employer] - 02/15/2023 8:00 AM EDT Chief Complaint Patient presents with Weight Management Session Fatigue HPI: Regarding Weight Gain: Yemi Jc is a 27 y.o. y.o. female who presents today with the complaint of obesity. She states that she has had gradual weight gain and would like to have assistance with weight loss. She has also been working on weight loss by: Diet: last visit reported that she feels like she's out of control with food, eats when she's not hungry, eats excessive amounts in a short period of time, feels remorse over this eating pattern, hasbeen binging at least every other day, felt like the vyvanse was helping with binging tendencies atfirst but now isn't noticing much of a difference, still doing counseling at [facility] and working through the Emotional Eating workbook with her counselor, reports still has binging episodes but these aren't as frequent as they were before medication.. vyvanse dose remained the same last visit, she is currently working with her counselor on how to help with cravings in the evenings, feels like counseling is helping, been doing a lot of meal planning, significant other has been more supportive and helping with the cooking as well and helping to plan and cook. Exercise: has been going to [employer] but has been inconsistent due to work schedule. Barriers: binge eater, emotional eating She has used prescription medication for weight loss in the past. Including: Adipex She denies heart disease She does have: see problem list Past Medical History Includes Her Wt Readings from Last 3 Encounters: 02/15/23 (!) 168.1 kg (370 lb 9.6 oz) 11/24/22 (!) 165.5 kg (364 lb 12.8 oz) 10/26/22 (!) 164.4 kg (362 lb 6.4 oz) and current Body mass index is 61.67 kg/m . Reviewed today. Hypertension: reports is usually controlled on current medication but recently ran out, has been checking this at work and was running normal, has put in a call to her PCP for refills, denies chest pain, shortness of breath, leg swelling. ROS: Constitutional: Negative for fatigue and fever. HENT: Negative for congestion, ear pain and sore throat. Eyes: Negative for pain and redness. Respiratory: Negative for cough and shortness of breath. Cardiovascular: Negative for chest pain and palpitations. Gastrointestinal: Negative for abdominal pain, constipation, diarrhea, nausea and vomiting. Genitourinary: Negative for difficulty urinating and dysuria. Musculoskeletal: Negative for arthralgias and myalgias. Skin: Negative for rash and wound. Neurological: Negative for dizziness and headaches. All other systems reviewed and are negative. Past medical/family/social history: reviewed and updated, see documented in patient's chart. Physical Exam: BP (!) 142/96 Pulse 87 Wt (!) 168.1 kg (370 lb 9.6 oz) BMI 61.67 kg/m Smoking Status Never Body mass index is 61.67 kg/m . Physical Exam Constitutional: Appearance: She is obese. HENT: Head: Normocephalic and atraumatic. Eyes: Conjunctiva/sclera: Conjunctivae normal. Pupils: Pupils are equal, round, and reactive to light. Cardiovascular: Rate and Rhythm: Normal rate and regular rhythm. Heart sounds: Normal heart sounds. No murmur heard. Pulmonary: Effort: Pulmonary effort is normal. Breath sounds: Normal breath sounds. Musculoskeletal: Cervical back: Normal range of motion and neck supple. Skin: General: Skin is warm and dry. Neurological: Mental Status: She is alert and oriented to person, place, and time. Assessment/Plan: 1. Binge eating disorder Continue on current dose of medication, continue with counselor and other modalities to help with this. - Lisdexamfetamine Dimesylate (Vyvanse) 50 MG capsule; Take 1 capsule by mouth daily. Dispense: 30 capsule; Refill: 0 - Lisdexamfetamine Dimesylate (Vyvanse) 50 MG capsule; Take 1 capsule by mouth daily. Dispense: 30 capsule; Refill: 0 - Lisdexamfetamine Dimesylate (Vyvanse) 50 MG capsule; Take 1 capsule by mouth daily. Dispense: 30 capsule; Refill: 0 2. Benign essential hypertension Monitor pressure while on vyvanse, patient has not taken medications yet this morning but running normal at home. Orders and follow up as documented in patient record; We reviewed medications and possible side effects. All questions were answered; Patient was advised to call with any questions or concerns. If symptoms worsen patient was advised to follow up in our office or the Emergency Dept. Benefits, Risks, Contraindications, and Complications of recommended treatments were explained the patient understands and agrees to proceed with plan. MADDIE Tuttle 02/15/2023 [facility] History of Present illness Narrative* On a scale of 0 to 10, the patient rates the pain at 0. * Controlled Substance: * I have personally reviewed the [place] report for YEMI JC. I have considered the risks ofabuse, dependence, addiction and diversion. [facility] Work Phone: 1(461) 574-167308-15-2023 History of Present illness NarrativeOn a scale of 0 to 10, the patient rates the pain at 0.[facility] Work Phone: 1([phone]) 261-422506-29-2023 History of Present illness Narrative* Lennie Gracia LPN - 11/24/2022 3:00 PM EDT Nurse Note: Review of Systems Constitutional: Negative for fatigue and fever. HENT: Negative for congestion, ear pain and sore throat. Eyes: Negative for pain and redness. Respiratory: Negative for cough and shortness of breath. Cardiovascular: Negative for chest pain and palpitations. Gastrointestinal: Negative for abdominal pain, constipation, diarrhea, nausea and vomiting. Genitourinary: Negative for difficulty urinating and dysuria. Musculoskeletal: Negative for arthralgias and myalgias. Skin: Negative for rash and wound. Neurological: Negative for dizziness and headaches. All other systems reviewed and are negative. * MADDIE Tuttle - 11/24/2022 3:00 PM EDT Chief Complaint Patient presents with Eating Disorder Fatigue HPI: Regarding Weight Gain: Yemi Jc is a 27 y.o. y.o. female who presents today with the complaint of obesity. She states that she has had gradual weight gain and would like to have assistance with weight loss. She has also been working on weight loss by: Diet: last visit reported that she feels like she's out of control with food, eats when she's not hungry, eats excessive amounts in a short period of time, feels remorse over this eating pattern, hasbeen binging at least every other day, felt like the vyvanse was helping with binging tendencies atfirst but now isn't noticing much of a difference, still doing counseling at [facility] and working through the Emotional Eating workbook with her counselor, reports still has binging episodes but these aren't as frequent as they were before medication.. vyvanse was increased last visit, does report benefit with this, not having as many urges to binge or eat mindlessly, reports is having a rough time emotionally this month and it's harder for her to get into the groove of going to the gym, has been talking about this with her counselor, feels like she still needs to work on coping mechanisms, still working on portion control, making grocery lists, etc. Exercise: she is going to [employer] twice a week, plans to get outside more since weather is nice. Barriers: binge eater, emotional eating She has used prescription medication for weight loss in the past. Including: Adipex She denies heart disease She does have: see problem list Past Medical History Includes Her Wt Readings from Last 3 Encounters: 11/24/22 (!) 165.5 kg (364 lb 12.8 oz) 10/26/22 (!) 164.4 kg (362 lb 6.4 oz) 08/30/22 (!) 164.3 kg (362 lb 4.8 oz) and current Body mass index is 60.71 kg/m . Reviewed today. Hypertension: reports is usually controlled on current medication but recently ran out, has been checking this at work and was running normal, has put in a call to her PCP for refills, denies chest pain, shortness of breath, leg swelling. ROS: Constitutional: Negative for fatigue and fever. HENT: Negative for congestion, ear pain and sore throat. Eyes: Negative for pain and redness. Respiratory: Negative for cough and shortness of breath. Cardiovascular: Negative for chest pain and palpitations. Gastrointestinal: Negative for abdominal pain, constipation, diarrhea, nausea and vomiting. Genitourinary: Negative for difficulty urinating and dysuria. Musculoskeletal: Negative for arthralgias and myalgias. Skin: Negative for rash and wound. Neurological: Negative for dizziness and headaches. All other systems reviewed and are negative. Past medical/family/social history: reviewed and updated, see documented in patient's chart. Physical Exam: BP 139/83 Pulse 96 Ht 1.651 m (5' 5) Wt (!) 165.5 kg (364 lb 12.8 oz) BMI 60.71 kg/m Smoking Status Never Body mass index is 60.71 kg/m . Physical Exam Constitutional: Appearance: She is obese. HENT: Head: Normocephalic and atraumatic. Eyes: Conjunctiva/sclera: Conjunctivae normal. Pupils: Pupils are equal, round, and reactive to light. Cardiovascular: Rate and Rhythm: Normal rate and regular rhythm. Heart sounds: Normal heart sounds. No murmur heard. Pulmonary: Effort: Pulmonary effort is normal. Breath sounds: Normal breath sounds. Musculoskeletal: Cervical back: Normal range of motion and neck supple. Skin: General: Skin is warm and dry. Neurological: Mental Status: She is alert and oriented to person, place, and time. Assessment/Plan: 1. Binge eating disorder Continue current dose, continue counseling and other learned coping techniques to help with this, follow up in 3 months - Lisdexamfetamine Dimesylate (Vyvanse) 50 MG capsule; Take 1 capsule by mouth daily. Dispense: 30 capsule; Refill: 0 - Lisdexamfetamine Dimesylate (Vyvanse) 50 MG capsule; Take 1 capsule by mouth daily. Dispense: 30 capsule; Refill: 0 - Lisdexamfetamine Dimesylate (Vyvanse) 50 MG capsule; Take 1 capsule by mouth daily. Dispense: 30 capsule; Refill: 0 2. Benign essential hypertension Monitor pressure while on vyvanse, if remains elevated will refer back to PCP. Orders and follow up as documented in patient record; We reviewed medications and possible side effects. All questions were answered; Patient was advised to call with any questions or concerns. If symptoms worsen patient was advised to follow up in our office or the Emergency Dept. Benefits, Risks, Contraindications, and Complications of recommended treatments were explained the patient understands and agrees to proceed with plan. MADDIE Tuttle 11/24/2022 [facility] History of Present illness Narrative* Ashlyn Gates PA-C - 11/01/2022 2:00 PM EDT Subjective Patient ID: Darleen Jc is a 27 y.o. female who presents for Follow-up (6 MO F/U WITH LABS. NO COMPLAINTS) HPI to review labs Med check HTN- on meds -- home readings /work readings are approp - will cont to monitor B12 - on injection on occasion and OTC supplement mood - stable on buspar and celexa --effexor - didn't work --prozac - didn't work GERD - improved back on PPI pain - stable - following with dr keenan wt loss - following with specialists and has been on/off adipex [facility] mammo - suggest age 40 colonoscopy - suggest age 45-50 DEXA - suggest age 50-55 Fall - Neg October 2022 PHQ2 - Neg October 2022 Patient Active Problem List Diagnosis Acanthosis nigricans Benign essential hypertension Chronic low back pain Fibromyalgia Degeneration of intervertebral disc of lumbar region Depression, major, single episode, mild (CMS/HCC) Dyspepsia JESSICA (generalized anxiety disorder) Glucose intolerance (impaired glucose tolerance) Hypercholesterolemia Low ferritin Low vitamin B12 level Lumbar radiculitis Lumbosacral radiculitis Morbid obesity (CMS/HCC) Prolapsed lumbar disc Sacroiliitis (CMS/HCC) Review of Systems Constitutional: Positive for fatigue. Negative for chills and fever. HENT: Negative for congestion, rhinorrhea, sinus pain, sore throat and tinnitus. Eyes: Negative for discharge, redness and visual disturbance. Respiratory: Negative for cough, chest tightness, shortness of breath and wheezing. Cardiovascular: Negative for chest pain, palpitations and leg swelling. Gastrointestinal: Negative for abdominal pain, constipation, diarrhea, nausea and vomiting. Endocrine: Negative for cold intolerance and heat intolerance. Genitourinary: Negative for flank pain, frequency and urgency. Musculoskeletal: Negative for back pain, gait problem and neck pain. Skin: Negative for rash and wound. Neurological: Negative for dizziness, tremors, syncope, numbness and headaches. Hematological: Does not bruise/bleed easily. Psychiatric/Behavioral: Negative for confusion, sleep disturbance and suicidal ideas. Past Medical History: Diagnosis Date Decreased libido 10/27/2022 Encounter for gynecological examination (general) (routine) without abnormal findings Pap test, as part of routine gynecological examination Numbness of left foot 10/27/2022 Past Surgical History: Procedure Laterality Date OTHER SURGICAL HISTORY 02/15/2019 Appendectomy OTHER SURGICAL HISTORY 02/15/2019 Esophagogastroduodenoscopy OTHER SURGICAL HISTORY 02/15/2019 [place] tooth extraction OTHER SURGICAL HISTORY 09/25/2019 Colonoscopy Family History Problem Relation Name Age of Onset Hypertension Mother No Known Problems Father Social History Tobacco Use Smoking status: Never Smokeless tobacco: Never Vaping Use Vaping status: Never Used Substance Use Topics Alcohol use: Never Drug use: Never Allergies Allergen Reactions Diclofenac Rash and Unknown Current Outpatient Medications Medication Sig Dispense Refill albuterol 90 mcg/actuation inhaler Inhale 2 puffs every 6 hours if needed for shortness of breath or wheezing. busPIRone (Buspar) 30 mg tablet Take 1 tablet (30 mg) by mouth twice a day. citalopram (CeleXA) 40 mg tablet Take 1 tablet (40 mg) by mouth once daily. cyanocobalamin (Vitamin B-12) 1,000 mcg tablet Take 1 tablet (1,000 mcg) by mouth once daily. dicyclomine (Bentyl) 10 mg capsule Take 1 capsule (10 mg) by mouth 3 times a day. drospirenone-ethinyl estradioL (Klaus, Gianvi) 3-0.02 mg tablet Take 1 tablet by mouth once daily. gabapentin (Neurontin) 300 mg capsule Take 1 capsule (300 mg) by mouth 2 times a day. lisdexamfetamine (Vyvanse) 50 mg capsule Take 1 capsule (50 mg) by mouth once daily. 30 capsule 0 losartan (Cozaar) 50 mg tablet Take 1 tablet (50 mg) by mouth 2 times a day. 60 tablet 11 omeprazole (PriLOSEC) [address] capsule Take 1 capsule (20 mg) by mouth 2 times a day before meals. tiZANidine (Zanaflex) 2 mg tablet Take 1 tablet (2 mg) by mouth 2 times a day. No current facility-administered medications for this visit. Objective BP (!) 137/91 Pulse 93 Ht 1.651 m (5' 5) Wt (!) 165 kg (364 lb) BMI 60.57 kg/m Physical Exam Vitals reviewed. Constitutional: Appearance: Normal appearance. She is obese. HENT: Head: Normocephalic. Right Ear: External ear normal. Left Ear: External ear normal. Nose: Nose normal. No congestion or rhinorrhea. Mouth/Throat: Mouth: Mucous membranes are moist. Eyes: Extraocular Movements: Extraocular movements intact. Conjunctiva/sclera: Conjunctivae normal. Pupils: Pupils are equal, round, and reactive to light. Cardiovascular: Rate and Rhythm: Normal rate and regular rhythm. Pulses: Normal pulses. Pulmonary: Effort: Pulmonary effort is normal. Breath sounds: Normal breath sounds. Abdominal: General: Bowel sounds are normal. Palpations: Abdomen is soft. Tenderness: There is no abdominal tenderness. There is no right CVA tenderness or left CVA tenderness. Musculoskeletal: General: No tenderness. Normal range of motion. Cervical back: Normal range of motion and neck supple. No tenderness. Skin: General: Skin is warm and dry. Neurological: General: No focal deficit present. Mental Status: She is alert and oriented to person, place, and time. Psychiatric: Mood and Affect: Mood normal. Behavior: Behavior normal. Testing Labs at [facility] October 2022 CMP -glucose 102 -rest approp Lipid -tchol 256* -TG 258* -HDL 45 -LDL 159* B12 503 CBC - Wnl Impression MDM 1) COMPLEXITY: MORE THAN 1 STABLE CHRONIC CONDITION ADDRESSED 2)DATA: TESTS INTERPRETED AND OR ORDERED, TOOK INDEPENDENT HISTORY OR RECORDS REVIEWED 3)RISK: MODERATE RISK DUE TO NATURE OF MEDICAL CONDITIONS/COMORBIDITY OR MEDICATIONS ORDERED OR SURGICAL OR PROCEDURE REFERRAL, . Reviewed labs and Testing on file Patient to follow diet low in cholesterol, fat, and sodium. Patient is advised to increase Exercise. Patient is recommended to lose weight. Reviewed Meds and discussed common side effects Continue as directed Hyperchol - pt admits not following diet and ex and would like to work on this more before startingstatin. Does not have many other risk factors for heart dz Patient is strongly advised to be compliant with recommendations. Return to Clinic sooner if needed. 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 (CMS/HCC) Hematologic Low vitamin B12 level Relevant Orders Vitamin B12 Other Depression, major, single episode, mild (CMS/HCC) JESSICA (generalized anxiety disorder) Hypercholesterolemia - Primary Relevant Orders CBC and Auto Differential Comprehensive Metabolic Panel Hemoglobin A1C Lipid Panel Iron and TIBC Ferritin Magnesium Vitamin B12 Low ferritin Relevant Orders Iron and TIBC Ferritin Magnesium FU in 6 mo with labs at [facility] - fasting and med check documented in this [facility] Work Phone: [phone]) 711-230605-31-2023 History of Present illness Narrative* Gwendolyn Wallace - 10/26/2022 3:40 PM EDT Nurse Note: Review of Systems Constitutional: Negative for fatigue and fever. HENT: Negative for congestion, ear pain, sinus pressure, sinus pain and sore throat. Eyes: Negative for pain and redness. Respiratory: Negative for cough and shortness of breath. Cardiovascular: Negative for chest pain and palpitations. Gastrointestinal: Negative for abdominal pain, constipation, diarrhea, nausea and vomiting. Genitourinary: Negative for difficulty urinating and dysuria. Musculoskeletal: Negative for arthralgias and myalgias. Skin: Negative for rash and wound. Neurological: Negative for dizziness and headaches. All other systems reviewed and are negative. Nursing Assessment: Physical Exam * MADDIE Tuttle - 10/26/2022 3:40 PM EDT Chief Complaint Patient presents with Weight Management Session Binge eating disorder HPI: Regarding Weight Gain: Yemi Jc is a 27 y.o. y.o. female who presents today with the complaint of obesity. She states that she has had gradual weight gain and would like to have assistance with weight loss. She has also been working on weight loss by: Diet: last visit reported that she feels like she's out of control with food, eats when she's not hungry, eats excessive amounts in a short period of time, feels remorse over this eating pattern, hasbeen binging at least every other day, felt like the [employer]yvanse was helping with binging tendencies atfirst but now isn't noticing much of a difference, still doing counseling at [facility] and working through the Emotional Eating workbook with her counselor, reports still has binging episodes but these aren't as frequent as they were before medication.. Exercise: she is going to [employer] twice a week, plans to get outside more since weather is nice. Barriers: binge eater, emotional eating She has used prescription medication for weight loss in the past. Including: Adipex She denies heart disease She does have: see problem list Past Medical History Includes Her Wt Readings from Last 3 Encounters: 10/26/22 (!) 164.4 kg (362 lb 6.4 oz) 08/30/22 (!) 164.3 kg (362 lb 4.8 oz) 07/26/22 (!) 164.7 kg (363 lb) and current Body mass index is 60.31 kg/m . Reviewed today. Hypertension: reports is usually controlled on current medication but recently ran out, has been checking this at work and was running normal, has put in a call to her PCP for refills, denies chest pain, shortness of breath, leg swelling. ROS: Constitutional: Negative for fatigue and fever. HENT: Negative for congestion, ear pain and sore throat. Eyes: Negative for pain and redness. Respiratory: Negative for cough and shortness of breath. Cardiovascular: Negative for chest pain and palpitations. Gastrointestinal: Negative for abdominal pain, constipation, diarrhea, nausea and vomiting. Genitourinary: Negative for difficulty urinating and dysuria. Musculoskeletal: Negative for arthralgias and myalgias. Skin: Negative for rash and wound. Neurological: Negative for dizziness and headaches. All other systems reviewed and are negative. Past medical/family/social history: reviewed and updated, see documented in patient's chart. Physical Exam: BP (!) 158/92 Pulse 89 Temp 98.4 F (36.9 C) (Temporal) Ht 1.651 m (5' 5) Wt (!) 164.4 kg (362 lb 6.4 oz) SpO2 98% BMI 60.31 kg/m Smoking Status Never Body mass index is 60.31 kg/m . Physical Exam Constitutional: Appearance: She is obese. HENT: Head: Normocephalic and atraumatic. Eyes: Conjunctiva/sclera: Conjunctivae normal. Pupils: Pupils are equal, round, and reactive to light. Cardiovascular: Rate and Rhythm: Normal rate and regular rhythm. Heart sounds: Normal heart sounds. No murmur heard. Pulmonary: Effort: Pulmonary effort is normal. Breath sounds: Normal breath sounds. Musculoskeletal: Cervical back: Normal range of motion and neck supple. Skin: General: Skin is warm and dry. Neurological: Mental Status: She is alert and oriented to person, place, and time. Assessment/Plan: 1. Binge eating disorder Increase medication, continue counseling and other learned coping techniques to help with this, follow up in one month. - Lisdexamfetamine Dimesylate (Vyvanse) 50 MG capsule; Take 1 capsule by mouth daily. Dispense: 30 capsule; Refill: 0 2. Benign essential hypertension Monitor pressure with increase in medication, do not take vyvanse until she has her script of losartan. Orders and follow up as documented in patient record; We reviewed medications and possible side effects. All questions were answered; Patient was advised to call with any questions or concerns. If symptoms worsen patient was advised to follow up in our office or the Emergency Dept. Benefits, Risks, Contraindications, and Complications of recommended treatments were explained the patient understands and agrees to proceed with plan. MADDIE Tuttle 10/26/2022 [facility] History of Present illness Narrative* Kim Megan - 08/30/2022 1:40 PM EDT Nurse Note: Review of Systems Constitutional: Negative for fatigue and fever. HENT: Negative for congestion, ear pain and sore throat. Eyes: Negative for pain and redness. Respiratory: Negative for cough and shortness of breath. Cardiovascular: Negative for chest pain and palpitations. Gastrointestinal: Negative for abdominal pain, constipation, diarrhea, nausea and vomiting. Genitourinary: Negative for difficulty urinating and dysuria. Musculoskeletal: Negative for arthralgias and myalgias. Skin: Negative for rash and wound. Neurological: Negative for dizziness and headaches. All other systems reviewed and are negative. * Fabi Kristal, [employer] - 08/30/2022 1:40 PM EDT Chief Complaint Patient presents with Weight Management Session Fatigue HPI: Regarding Weight Gain: Yemi Jc is a 27 y.o. y.o. female who presents today with the complaint of obesity. She states that she has had gradual weight gain and would like to have assistance with weight loss. She has also been working on weight loss by: Diet: last visit reported that she feels like she's out of control with food, eats when she's not hungry, eats excessive amounts in a short period of time, feels remorse over this eating pattern, hasbeen binging at least every other day, didn't think about food all the time, felt like appetite wasbetter controlled, recently started counseling at [facility] for binge eating, has started a workbook called Emotional Eating with her counselor, also working on triggering events, is trying to get into a regular fitness routine a few days a week, she does feel like she is receiving benefit with vyvanse although still has some days when she wants to eat everything in sight and admits is undera lot of stress on those days, she is seeing her counselor every couple weeks. Exercise: she is going to [employer] twice a week. Barriers: binge eater, emotional eating She has used prescription medication for weight loss in the past. Including: Adipex She denies heart disease She does have: see problem list Past Medical History Includes Her Wt Readings from Last 3 Encounters: 08/30/22 (!) 164.3 kg (362 lb 4.8 oz) 07/26/22 (!) 164.7 kg (363 lb) 06/28/22 (!) 165.7 kg (365 lb 6.4 oz) and current Body mass index is 60.29 kg/m . Reviewed today. Hypertension: reports is usually controlled on current medication, has been checking this at work and is running normal, denies chest pain, shortness of breath, leg swelling. ROS: Constitutional: Negative for fatigue and fever. HENT: Negative for congestion, ear pain and sore throat. Eyes: Negative for pain and redness. Respiratory: Negative for cough and shortness of breath. Cardiovascular: Negative for chest pain and palpitations. Gastrointestinal: Negative for abdominal pain, constipation, diarrhea, nausea and vomiting. Genitourinary: Negative for difficulty urinating and dysuria. Musculoskeletal: Negative for arthralgias and myalgias. Skin: Negative for rash and wound. Neurological: Negative for dizziness and headaches. All other systems reviewed and are negative. Past medical/family/social history: reviewed and updated, see documented in patient's chart. Physical Exam: BP (!) 148/92 Pulse 98 Wt (!) 164.3 kg (362 lb 4.8 oz) BMI 60.29 kg/m Smoking Status Never Body mass index is 60.29 kg/m . Physical Exam Constitutional: Appearance: She is obese. HENT: Head: Normocephalic and atraumatic. Eyes: Conjunctiva/sclera: Conjunctivae normal. Pupils: Pupils are equal, round, and reactive to light. Cardiovascular: Rate and Rhythm: Normal rate and regular rhythm. Heart sounds: Normal heart sounds. No murmur heard. Pulmonary: Effort: Pulmonary effort is normal. Breath sounds: Normal breath sounds. Musculoskeletal: Cervical back: Normal range of motion and neck supple. Skin: General: Skin is warm and dry. Neurological: Mental Status: She is alert and oriented to person, place, and time. Assessment/Plan: 1. Binge eating disorder Continue current dose, continue counseling and other learned coping techniques to help with this, follow up in 2 months. - Lisdexamfetamine Dimesylate (Vyvanse) 40 MG capsule; Take 1 capsule by mouth daily. Dispense: 30 capsule; Refill: 0 - Lisdexamfetamine Dimesylate (Vyvanse) 40 MG capsule; Take 1 capsule by mouth daily every morning.Dispense: 30 capsule; Refill: 0 2. Benign essential hypertension Continue medication, watch pressures while on vyvanse. Orders and follow up as documented in patient record; We reviewed medications and possible side effects. All questions were answered; Patient was advised to call with any questions or concerns. If symptoms worsen patient was advised to follow up in our office or the Emergency Dept. Benefits, Risks, Contraindications, and Complications of recommended treatments were explained the patient understands and agrees to proceed with plan. MADDIE Tuttle 08/30/2022 documented in this [facility]02-28-2023 History of Present illness Narrative* Kim Guzman - 07/26/2022 2:20 PM EST Nurse Note: Review of Systems Constitutional: Negative for fatigue and fever. HENT: Negative for congestion, ear pain and sore throat. Eyes: Negative for pain and redness. Respiratory: Negative for cough and shortness of breath. Cardiovascular: Negative for chest pain and palpitations. Gastrointestinal: Negative for abdominal pain, constipation, diarrhea, nausea and vomiting. Genitourinary: Negative for difficulty urinating and dysuria. Musculoskeletal: Negative for arthralgias and myalgias. Skin: Negative for rash and wound. Neurological: Negative for dizziness and headaches. All other systems reviewed and are negative. * MADDIE Tuttle - 07/26/2022 2:20 PM EST Chief Complaint Patient presents with Weight Management Session HPI: Regarding Weight Gain: Yemi Jc is a 27 y.o. y.o. female who presents today with the complaint of obesity. She states that she has had gradual weight gain and would like to have assistance with weight loss. She has also been working on weight loss by: Diet: last visit reported that she feels like she's out of control with food, eats when she's not hungry, eats excessive amounts in a short period of time, feels remorse over this eating pattern, hasbeen binging at least every other day, vyvanse was started and she does feel like for the first couple of weeks she got a lot of benefit with this, didn't think about food all the time, felt like appetite was better controlled, recently started counseling at [facility] for binge eating, has started a workbook called Emotional Eating with her counselor, she does feel like this is going to be beneficial. Exercise: she is going to [employer] twice a week. Barriers: binge eater, emotional eating She has used prescription medication for weight loss in the past. Including: Adipex She denies heart disease She does have: see problem list Past Medical History Includes Her Wt Readings from Last 3 Encounters: 07/26/22 (!) 164.7 kg (363 lb) 06/28/22 (!) 165.7 kg (365 lb 6.4 oz) 04/26/22 (!) 157.9 kg (348 lb 3.2 oz) and current Body mass index is 60.41 kg/m . Reviewed today. Hypertension: reports is usually controlled on current medication, has been checking this at work and is running normal, hasn't taken blood pressure medications today, denies chest pain, shortness ofbreath, leg swelling. ROS: Constitutional: Negative for fatigue and fever. HENT: Negative for congestion, ear pain and sore throat. Eyes: Negative for pain and redness. Respiratory: Negative for cough and shortness of breath. Cardiovascular: Negative for chest pain and palpitations. Gastrointestinal: Negative for abdominal pain, constipation, diarrhea, nausea and vomiting. Genitourinary: Negative for difficulty urinating and dysuria. Musculoskeletal: Negative for arthralgias and myalgias. Skin: Negative for rash and wound. Neurological: Negative for dizziness and headaches. All other systems reviewed and are negative. Past medical/family/social history: reviewed and updated, see documented in patient's chart. Physical Exam: BP 134/84 Pulse 91 Ht 1.651 m (5' 5) Wt (!) 164.7 kg (363 lb) BMI 60.41 kg/m Smoking Status Never Body mass index is 60.41 kg/m . Physical Exam Constitutional: Appearance: She is obese. HENT: Head: Normocephalic and atraumatic. Eyes: Conjunctiva/sclera: Conjunctivae normal. Pupils: Pupils are equal, round, and reactive to light. Cardiovascular: Rate and Rhythm: Normal rate and regular rhythm. Heart sounds: Normal heart sounds. No murmur heard. Pulmonary: Effort: Pulmonary effort is normal. Breath sounds: Normal breath sounds. Musculoskeletal: Cervical back: Normal range of motion and neck supple. Skin: General: Skin is warm and dry. Neurological: Mental Status: She is alert and oriented to person, place, and time. Assessment/Plan: 1. Binge eating disorder Improving, increase dose, continue with counseling and work book activity, consider dose adjustmentat follow up. - Lisdexamfetamine Dimesylate (Vyvanse) 40 MG capsule; Take 1 capsule by mouth daily. Dispense: 30 capsule; Refill: 0 Orders and follow up as documented in patient record; We reviewed medications and possible side effects. All questions were answered; Patient was advised to call with any questions or concerns. If symptoms worsen patient was advised to follow up in our office or the Emergency Dept. Benefits, Risks, Contraindications, and Complications of recommended treatments were explained the patient understands and agrees to proceed with plan. MADDIE Tuttle 07/26/2022 documented in this [facility]01-31-2023 History of Present illness Narrative* Kim Guzman - 06/28/2022 3:00 PM EST Nurse Note: Review of Systems Constitutional: Negative for fatigue and fever. HENT: Negative for congestion, ear pain and sore throat. Eyes: Negative for pain and redness. Respiratory: Negative for cough and shortness of breath. Cardiovascular: Negative for chest pain and palpitations. Gastrointestinal: Negative for abdominal pain, constipation, diarrhea, nausea and vomiting. Genitourinary: Negative for difficulty urinating and dysuria. Musculoskeletal: Negative for arthralgias and myalgias. Skin: Negative for rash and wound. Neurological: Negative for dizziness and headaches. All other systems reviewed and are negative. * MADDIE Tuttle - 06/28/2022 3:00 PM EST Chief Complaint Patient presents with Weight Management Session HPI: Regarding Weight Gain: Yemi Jc is a 27 y.o. y.o. female who presents today with the complaint of obesity. She states that she has had gradual weight gain and would like to have assistance with weight loss. She has also been working on weight loss by: Diet: took a couple months off from medical weight loss, she reports has blown up in the last couple months, has gained 17 pounds in the last two months, feels like this is too much even for her, admits that she hasn't been making good food choices, has invasive thoughts about food and snacking, is craving sweet and salty foods, is under a lot more stress lately, was seeing a counselor but she recently had surgery and isn't doing appointments yet, reports she feels like she's out of control with food, eats when she's not hungry, eats excessive amounts in a short period of time, feels remorse over this eating pattern, has been binging at least every other day. Exercise: she is going to [employer] twice a week. Barriers: binge eater, emotional eating She has used prescription medication for weight loss in the past. Including: Adipex She denies heart disease She does have: see problem list Past Medical History Includes Her Wt Readings from Last 3 Encounters: 06/28/22 (!) 165.7 kg (365 lb 6.4 oz) 04/26/22 (!) 157.9 kg (348 lb 3.2 oz) 03/24/22 (!) 156.5 kg (345 lb) and current Body mass index is 60.81 kg/m . Reviewed today. Hypertension: reports is usually controlled on current medication, has been checking this at work and is running normal, hasn't taken blood pressure medications today, denies chest pain, shortness ofbreath, leg swelling. ROS: Constitutional: Negative for fatigue and fever. HENT: Negative for congestion, ear pain and sore throat. Eyes: Negative for pain and redness. Respiratory: Negative for cough and shortness of breath. Cardiovascular: Negative for chest pain and palpitations. Gastrointestinal: Negative for abdominal pain, constipation, diarrhea, nausea and vomiting. Genitourinary: Negative for difficulty urinating and dysuria. Musculoskeletal: Negative for arthralgias and myalgias. Skin: Negative for rash and wound. Neurological: Negative for dizziness and headaches. All other systems reviewed and are negative. Past medical/family/social history: reviewed and updated, see documented in patient's chart. Physical Exam: BP (!) 158/94 Pulse 82 Ht 1.651 m (5' 5) Wt (!) 165.7 kg (365 lb 6.4 oz) BMI 60.81 kg/m Smoking Status Never Body mass index is 60.81 kg/m . Physical Exam Constitutional: Appearance: She is obese. HENT: Head: Normocephalic and atraumatic. Eyes: Extraocular Movements: EOM normal. Conjunctiva/sclera: Conjunctivae normal. Pupils: Pupils are equal, round, and reactive to light. Cardiovascular: Rate and Rhythm: Normal rate and regular rhythm. Heart sounds: Normal heart sounds. No murmur heard. Pulmonary: Effort: Pulmonary effort is normal. Breath sounds: Normal breath sounds. Musculoskeletal: Cervical back: Normal range of motion and neck supple. Skin: General: Skin is warm and dry. Neurological: Mental Status: She is alert and oriented to person, place, and time. Assessment/Plan: 1. Binge eating disorder Start medication, highly encouraged counseling for binging tendencies and to learn different copingmechanisms, will consider dose adjustment at follow up, monitor pressures with start of medication,take blood pressure medications consistently. - Lisdexamfetamine (Vyvanse) 30 MG capsule; Take 1 capsule by mouth daily every morning. Dispense: 30 capsule; Refill: 0 Orders and follow up as documented in patient record; We reviewed medications and possible side effects. All questions were answered; Patient was advised to call with any questions or concerns. If symptoms worsen patient was advised to follow up in our office or the Emergency Dept. Benefits, Risks, Contraindications, and Complications of recommended treatments were explained the patient understands and agrees to proceed with plan. MADDIE Tuttle 06/28/2022 documented in this [facility]11-29-2022 History of Present illness Narrative* Lennie Garcia LPN - 04/26/2022 3:20 PM EST Nurse Note: Review of Systems Constitutional: Negative for fatigue and fever. HENT: Negative for congestion, ear pain and sore throat. Eyes: Negative for pain and redness. Respiratory: Negative for cough and shortness of breath. Cardiovascular: Negative for chest pain and palpitations. Gastrointestinal: Negative for abdominal pain, constipation, diarrhea, nausea and vomiting. Genitourinary: Negative for difficulty urinating and dysuria. Musculoskeletal: Negative for arthralgias and myalgias. Skin: Negative for rash and wound. Neurological: Negative for dizziness and headaches. All other systems reviewed and are negative. * Fabi Giraldo APRN-ONEAL - 04/26/2022 3:20 PM EST Chief Complaint Patient presents with Weight Management Session Fatigue HPI: Regarding Weight Gain: Yemi Jc is a 27 y.o. y.o. female who presents today with the complaint of obesity. She states that she has had gradual weight gain and would like to have assistance with weight loss. She has also been working on weight loss by: Diet: has been trying to do Weight Watchers for the last few months but hasn't been quite as diligent as in the past, she is seeing a counselor to work on mental health for this, medications started to become ineffective, tried to get GLP covered by insurance but will not cover this, tried bupropion but did not tolerate. Exercise: plans on starting at the gym with a co-worker. Barriers: hard to stay consistent She has used prescription medication for weight loss in the past. Including: Adipex She denies heart disease She does have: see problem list Past Medical History Includes Her Wt Readings from Last 3 Encounters: 04/26/22 (!) 157.9 kg (348 lb 3.2 oz) 03/24/22 (!) 156.5 kg (345 lb) 02/24/22 (!) 147.1 kg (324 lb 6.4 oz) and current Body mass index is 57.94 kg/m . Reviewed today. Elevated BP: she is on losartan 50 mg BID for this, has been monitoring this at home on occasion, has been running 120-130s/80s at home, denies chest pain, shortness of breath, heart palpitations. ROS: Review of Systems Constitutional: Negative for fatigue and fever. HENT: Negative for congestion, ear pain and sore throat. Eyes: Negative for pain and redness. Respiratory: Negative for cough and shortness of breath. Cardiovascular: Negative for chest pain and palpitations. Gastrointestinal: Negative for abdominal pain, constipation, diarrhea, nausea and vomiting. Genitourinary: Negative for difficulty urinating and dysuria. Musculoskeletal: Negative for arthralgias and myalgias. Skin: Negative for rash and wound. Neurological: Negative for dizziness and headaches. All other systems reviewed and are negative. Past medical/family/social history: reviewed and updated, see documented in patient's chart. Physical Exam: BP 136/86 Pulse 91 Ht 1.651 m (5' 5) Wt (!) 157.9 kg (348 lb 3.2 oz) BMI 57.94 kg/m Smoking Status Never Body mass index is 57.94 kg/m . Physical Exam Constitutional: Appearance: She is morbidly obese. HENT: Head: Normocephalic and atraumatic. Eyes: Pupils: Pupils are equal, round, and reactive to light. Cardiovascular: Rate and Rhythm: Normal rate and regular rhythm. Heart sounds: Normal heart sounds. Pulmonary: Effort: Pulmonary effort is normal. Breath sounds: Normal breath sounds. Abdominal: Palpations: Abdomen is soft. Musculoskeletal: Cervical back: Normal range of motion and neck supple. Skin: General: Skin is warm and dry. Neurological: Mental Status: She is alert and oriented to person, place, and time. Assessment/Plan: 1. Benign essential hypertension Continue with weight loss journey, diet, and exercise changes, encouraged to continue monitoring this at home with the addition of bupropion as this can elevate blood pressure. 2. BMI 50.0-59.9, adult Continue with counseling, encouraged to stay consistent with this and Weight Watchers, we also discussed bariatric surgery as she would be a good candidate, she is switching insurance after the firstof the year and will let me know if this is something that [place] be covered or if the injectable medications such as Saxenda or Wegovy would be an option at that time. Orders and follow up as documented in patient record; Patient was advised to call with any questions or concerns. If symptoms worsen patient was advised to follow up in our office or the Emergency Dept. Benefits, Risks, Contraindications, and Complications of recommended treatments were explained the patient understands and agrees to proceed with plan. MADDIE Tuttle 04/26/2022 documented in this [facility]10-27-2022 History of Present illness Narrative* Meena Ayala - 03/24/2022 3:20 PM EDT Nurse Note: Review of Systems Constitutional: Negative for fatigue and fever. HENT: Negative for congestion, ear pain and sore throat. Eyes: Negative for pain and redness. Respiratory: Negative for cough and shortness of breath. Cardiovascular: Negative for chest pain and palpitations. Gastrointestinal: Negative for abdominal pain, constipation, diarrhea, nausea and vomiting. Genitourinary: Negative for difficulty urinating and dysuria. Musculoskeletal: Negative for arthralgias and myalgias. Skin: Negative for rash and wound. Neurological: Negative for dizziness and headaches. All other systems reviewed and are negative. * MADDIE Tutlte - 03/24/2022 3:20 PM EDT Chief Complaint Patient presents with Weight Management Session Patient states this past month has been hard, reports to be stuck at current weight. Patient statesshe does not think medication is working and would like to discuss other options. HPI: Regarding Weight Gain: Yemi Jc is a 27 y.o. y.o. female who presents today with the complaint of obesity. She states that she has had gradual weight gain and would like to have assistance with weight loss. She has also been working on weight loss by: Diet: reports hasn't had much motivation lately, feels stuck in this weird place, has been going tocounseling, feels like her life is really crazy right now, is having a hard time getting to the gymand eating a healthy dinner, was doing really well for a month and then stopped tracking, wonders if she also has something going on hormonally, has had a period since September, irregular, also with painful periods, has always struggled with weight, does have elevated triglycerides and hypertension, fasting glucose is borderline. Exercise: she did have covid this month and feels like she could be better with exercise but did dothe heart walk this month. Barriers: sometimes feels like she wants to snack, but the kortney is helping her choose healthy options She has used prescription medication for weight loss in the past. Including: Adipex She denies heart disease She does have: see problem list Past Medical History Includes Her Wt Readings from Last 3 Encounters: 03/24/22 (!) 156.5 kg (345 lb) 02/24/22 (!) 147.1 kg (324 lb 6.4 oz) 01/26/22 (!) 153.7 kg (338 lb 12.8 oz) and current Body mass index is 57.41 kg/m . Reviewed today. Elevated BP: she is on losartan 50 mg BID for this, has been monitoring this at home on occasion, has been running 120-130s/80s at home, denies chest pain, shortness of breath, heart palpitations. ROS: Review of Systems Constitutional: Negative for fatigue and fever. HENT: Negative for congestion, ear pain and sore throat. Eyes: Negative for pain and redness. Respiratory: Negative for cough and shortness of breath. Cardiovascular: Negative for chest pain and palpitations. Gastrointestinal: Negative for abdominal pain, constipation, diarrhea, nausea and vomiting. Genitourinary: Negative for difficulty urinating and dysuria. Musculoskeletal: Negative for arthralgias and myalgias. Skin: Negative for rash and wound. Neurological: Negative for dizziness and headaches. All other systems reviewed and are negative. Past medical/family/social history: reviewed and updated, see documented in patient's chart. Physical Exam: BP 138/82 Pulse 105 Ht 1.651 m (5' 5) Wt (!) 156.5 kg (345 lb) BMI 57.41 kg/m Smoking Status Never Body mass index is 57.41 kg/m . Physical Exam Constitutional: Appearance: She is morbidly obese. HENT: Head: Normocephalic and atraumatic. Eyes: Pupils: Pupils are equal, round, and reactive to light. Cardiovascular: Rate and Rhythm: Normal rate and regular rhythm. Heart sounds: Normal heart sounds. Pulmonary: Effort: Pulmonary effort is normal. Breath sounds: Normal breath sounds. Abdominal: Palpations: Abdomen is soft. Musculoskeletal: Cervical back: Normal range of motion and neck supple. Skin: General: Skin is warm and dry. Neurological: Mental Status: She is alert and oriented to person, place, and time. Assessment/Plan: 1. Benign essential hypertension Continue with weight loss journey, diet, and exercise changes, encouraged to continue monitoring this at home with the addition of bupropion as this can elevate blood pressure. 2. Metabolic syndrome Start ozempic, decrease topiramate with goal to stop this, start bupropion to increase motivation and aid in weight loss, consider dose increase at follow up. - Semaglutide,0.25 or 0.5MG/DOS, (Ozempic, 0.25 or 0.5 MG/DOSE,) 2 MG/1.5ML Solution Pen-injector; Inject 0.25 mg under the skin once a week. Dispense: 1.5 mL; Refill: 0 - topiramate 25 MG tablet; Take 1 tablet by mouth 2 times daily. Dispense: 60 tablet; Refill: 1 - buPROPion 150 MG tablet XL; Take 1 tablet by mouth daily every morning. Dispense: 30 tablet; Refill: 1 - INSULIN PEN NEEDLES ULTRA FINE PRESCRIPTION; 1 Device by Instructed route once a week. Dispense: 1 Each; Refill: 0 3. Fatigue, unspecified type Start medication, consider dose adjustment at follow up. - buPROPion 150 MG tablet XL; Take 1 tablet by mouth daily every morning. Dispense: 30 tablet; Refill: 1 Orders and follow up as documented in patient record; Patient was advised to call with any questions or concerns. If symptoms worsen patient was advised to follow up in our office or the Emergency Dept. Benefits, Risks, Contraindications, and Complications of recommended treatments were explained the patient understands and agrees to proceed with plan. MADDIE Tuttle 03/24/2022 documented in this [facility]09-29-2022 History of Present illness Narrative* Lennie Garcia LPN - 02/24/2022 3:40 PM EDT Nurse Note: Review of Systems Constitutional: Negative for fatigue and fever. HENT: Negative for congestion, ear pain and sore throat. Eyes: Negative for pain and redness. Respiratory: Negative for cough and shortness of breath. Cardiovascular: Negative for chest pain and palpitations. Gastrointestinal: Negative for abdominal pain, constipation, diarrhea, nausea and vomiting. Genitourinary: Negative for difficulty urinating and dysuria. Musculoskeletal: Negative for arthralgias and myalgias. Skin: Negative for rash and wound. Neurological: Negative for dizziness and headaches. All other systems reviewed and are negative. * Fabi Giraldo APRN-[employer] - 02/24/2022 3:40 PM EDT Chief Complaint Patient presents with Weight Management Session Fatigue HPI: Regarding Weight Gain: Yemi Jc is a 26 y.o. y.o. female who presents today with the complaint of obesity. She states that she has had gradual weight gain and would like to have assistance with weight loss. She has also been working on weight loss by: Diet: hasn't had much of an appetite since Covid, still working on portion control, not going back for seconds, doing Weight Watchers but not as consistently this month. Exercise: she did have covid this month and feels like she could be better with exercise but did dothe heart walk this month. Barriers: sometimes feels like she wants to snack, but the kortney is helping her choose healthy options She has used prescription medication for weight loss in the past. Including: Adipex She denies heart disease She does have: see problem list Past Medical History Includes Her Wt Readings from Last 3 Encounters: 02/24/22 (!) 147.1 kg (324 lb 6.4 oz) 01/26/22 (!) 153.7 kg (338 lb 12.8 oz) 12/23/21 (!) 154.5 kg (340 lb 9.6 oz) and current Body mass index is 53.98 kg/m . Reviewed today. Elevated BP: she is on losartan 50 mg BID for this, has been monitoring this at home on occasion, has been running 120-130s/80s at home, denies chest pain, shortness of breath, heart palpitations. ROS: Review of Systems Constitutional: Negative for fatigue and fever. HENT: Negative for congestion, ear pain and sore throat. Eyes: Negative for pain and redness. Respiratory: Negative for cough and shortness of breath. Cardiovascular: Negative for chest pain and palpitations. Gastrointestinal: Negative for abdominal pain, constipation, diarrhea, nausea and vomiting. Genitourinary: Negative for difficulty urinating and dysuria. Musculoskeletal: Negative for arthralgias and myalgias. Skin: Negative for rash and wound. Neurological: Negative for dizziness and headaches. All other systems reviewed and are negative. Past medical/family/social history: reviewed and updated, see documented in patient's chart. Physical Exam: BP 126/89 Pulse 87 Ht 1.651 m (5' 5) Wt (!) 147.1 kg (324 lb 6.4 oz) BMI 53.98 kg/m Smoking Status Never Smoker Body mass index is 53.98 kg/m . Physical Exam Constitutional: Appearance: She is morbidly obese. HENT: Head: Normocephalic and atraumatic. Eyes: Pupils: Pupils are equal, round, and reactive to light. Cardiovascular: Rate and Rhythm: Normal rate and regular rhythm. Heart sounds: Normal heart sounds. Pulmonary: Effort: Pulmonary effort is normal. Breath sounds: Normal breath sounds. Abdominal: Palpations: Abdomen is soft. Musculoskeletal: Cervical back: Normal range of motion and neck supple. Skin: General: Skin is warm and dry. Neurological: Mental Status: She is alert and oriented to person, place, and time. Assessment/Plan: 1. Benign essential hypertension Continue with weight loss journey, diet, and exercise changes, encouraged to continue monitoring this at home with the addition of phentermine as this can elevate blood pressure. 2. BMI 50.0-59.9, adult Applauded weight loss efforts, lost 14 pounds in the last month, encouraged to keep the momentum going, continue with Weight Watchers, tried to send Wegovy for patient but cost was an issue, likes current dose of qsymia, denies side effects - Phentermine-Topiramate (Qsymia) 15-92 MG Cap SR 24HR; Take 1 tablet by mouth daily. Dispense: 30 capsule; Refill: 0 Orders and follow up as documented in patient record; Patient was advised to call with any questions or concerns. If symptoms worsen patient was advised to follow up in our office or the Emergency Dept. Benefits, Risks, Contraindications, and Complications of recommended treatments were explained the patient understands and agrees to proceed with plan. MADDIE Tuttle 02/24/2022 [facility] of Present illness Narrative* Nkechi Headley - 01/26/2022 3:00 PM EDT Nurse Note: Review of Systems Constitutional: Negative for fatigue and fever. HENT: Negative for congestion, ear pain and sore throat. Eyes: Negative for pain and redness. Respiratory: Negative for cough and shortness of breath. Cardiovascular: Negative for chest pain and palpitations. Gastrointestinal: Negative for abdominal pain, constipation, diarrhea and nausea. Genitourinary: Negative for difficulty urinating and dysuria. Musculoskeletal: Negative for arthralgias and myalgias. Skin: Negative for rash and wound. Neurological: Negative for dizziness and headaches. All other systems reviewed and are negative. * MADDIE Tuttle - 01/26/2022 3:00 PM EDT Chief Complaint Patient presents with Weight Management Session Patient was wanting an increase in medication. Hypertension HPI: Regarding Weight Gain: Yemi Jc is a 26 y.o. y.o. female who presents today with the complaint of obesity. She states that she has had gradual weight gain and would like to have assistance with weight loss. She has also been working on weight loss by: Diet: doing Weight Watchers consistently, lost another two pounds since last visit, Exercise: is going to [employer] and works out for an hour 2-3 days a week, does both cardio and weight training, had to take a mini break this month because was caring for grandmother who just had surgery but plans to get back to this. Barriers: sometimes feels like she wants to snack, but the kortney is helping her choose healthy options She has used prescription medication for weight loss in the past. Including: Adipex She denies heart disease She does have: see problem list Past Medical History Includes Her Wt Readings from Last 3 Encounters: 01/26/22 (!) 153.7 kg (338 lb 12.8 oz) 12/23/21 (!) 154.5 kg (340 lb 9.6 oz) 11/25/21 (!) 157.9 kg (348 lb 3.2 oz) and current Body mass index is 56.38 kg/m . Reviewed today. Elevated BP: she is on losartan 50 mg BID for this, has been monitoring this at home on occasion, has been running 120-130s/80s at home, denies chest pain, shortness of breath, heart palpitations. ROS: Review of Systems Constitutional: Negative for fatigue and fever. HENT: Negative for congestion, ear pain and sore throat. Eyes: Negative for pain and redness. Respiratory: Negative for cough and shortness of breath. Cardiovascular: Negative for chest pain and palpitations. Gastrointestinal: Negative for abdominal pain, constipation, diarrhea, nausea and vomiting. Genitourinary: Negative for difficulty urinating and dysuria. Musculoskeletal: Negative for arthralgias and myalgias. Skin: Negative for rash and wound. Neurological: Negative for dizziness and headaches. All other systems reviewed and are negative. Past medical/family/social history: reviewed and updated, see documented in patient's chart. Physical Exam: BP 136/84 Pulse 93 Ht 1.651 m (5' 5) Wt (!) 153.7 kg (338 lb 12.8 oz) BMI 56.38 kg/m Smoking Status Never Smoker Body mass index is 56.38 kg/m . Physical Exam Constitutional: Appearance: She is morbidly obese. HENT: Head: Normocephalic and atraumatic. Eyes: Pupils: Pupils are equal, round, and reactive to light. Cardiovascular: Rate and Rhythm: Normal rate and regular rhythm. Heart sounds: Normal heart sounds. Pulmonary: Effort: Pulmonary effort is normal. Breath sounds: Normal breath sounds. Abdominal: Palpations: Abdomen is soft. Musculoskeletal: Cervical back: Normal range of motion and neck supple. Skin: General: Skin is warm and dry. Neurological: Mental Status: She is alert and oriented to person, place, and time. Assessment/Plan: 1. Benign essential hypertension Continue with weight loss journey, diet, and exercise changes, encouraged to continue monitoring this at home with the addition of phentermine as this can elevate blood pressure. 2. BMI 50.0-59.9, adult Applauded weight loss efforts over the last couple months, encouraged to keep the momentum going, tried to send Wegovy for patient but cost was an issue, will increase qsymia. - Phentermine-Topiramate (Qsymia) 15-92 MG Cap SR 24HR; Take 1 tablet by mouth daily. Dispense: 30 capsule; Refill: 0 Orders and follow up as documented in patient record; Patient was advised to call with any questions or concerns. If symptoms worsen patient was advised to follow up in our office or the Emergency Dept. Benefits, Risks, Contraindications, and Complications of recommended treatments were explained the patient understands and agrees to proceed with plan. MADDIE Tuttle 01/27/2022 documented in this [facility]08-30-2022 History of Present illness Narrative* On a scale of 0 to 10, the patient rates the pain at 4. * Pain Location: Low Back Pain and across both sides. * Pain Quality: Aching, Sharp and Spasm. * Pain Radiation: into bilat gluteals and down thighs mid way. * Sensory/ Motor: Numbness, Pins and Follett and Bilat lower legs at ankles, feet , hands and arms ongoing issue. * Timing/Duration: Constant and > 12 weeks duration. * Controlled Substance: * I have personally reviewed the [place] report for YEMI JC. I have considered the risks ofabuse, dependence, addiction and diversion. * Exacerbating Factors: sitting. [facility] Work Phone: [phone] 569-108706-30-2022 History of Present illness Narrative* Lennie Garcia - 11/25/2021 3:20 PM EDT Nurse Note: Review of Systems Constitutional: Negative for fatigue and fever. HENT: Negative for congestion, ear pain and sore throat. Eyes: Negative for pain and redness. Respiratory: Negative for cough and shortness of breath. Cardiovascular: Negative for chest pain and palpitations. Gastrointestinal: Negative for abdominal pain, constipation, diarrhea, nausea and vomiting. Genitourinary: Negative for difficulty urinating and dysuria. Musculoskeletal: Negative for arthralgias and myalgias. Skin: Negative for rash and wound. Neurological: Negative for dizziness and headaches. All other systems reviewed and are negative. * Fabi Giraldo APRN-ONEAL - 11/25/2021 3:20 PM EDT Chief Complaint Patient presents with Weight Management Session Adipex #3 HPI: Regarding Weight Gain: Yemi Jc is a 26 y.o. y.o. female who presents today with the complaint of obesity. She states that she has had gradual weight gain and would like to have assistance with weight loss. She has also been working on weight loss by: Diet: doing Weight Watchers and has been more strict about this, has been tracking her points everyday, making shopping lists, reports at her office her weight is 342, is upset because she has been trying really hard this month and doesn't know what scale is accurate. Exercise: is going to [employer] and works out for an hour 2-3 days a week, does both cardio and weight training, on days she is not at [employer] she is at least trying to get out and walk around the neighborhood. Barriers: sometimes feels like she wants to snack, but the kortney is helping her choose healthy options She has used prescription medication for weight loss in the past. Including: Adipex She denies heart disease She does have: see problem list Past Medical History Includes Her Wt Readings from Last 3 Encounters: 11/25/21 (!) 157.9 kg (348 lb 3.2 oz) 10/27/21 (!) 160.1 kg (353 lb) 09/29/21 (!) 158.8 kg (350 lb) and current Body mass index is 57.94 kg/m . Reviewed today. Elevated BP: she is on losartan 50 mg BID for this, has been monitoring this at home on occasion, has been running 120-130s/80s at home, denies chest pain, shortness of breath, heart palpitations. ROS: Review of Systems Constitutional: Negative for fatigue and fever. HENT: Negative for congestion, ear pain and sore throat. Eyes: Negative for pain and redness. Respiratory: Negative for cough and shortness of breath. Cardiovascular: Negative for chest pain and palpitations. Gastrointestinal: Negative for abdominal pain, constipation, diarrhea, nausea and vomiting. Genitourinary: Negative for difficulty urinating and dysuria. Musculoskeletal: Negative for arthralgias and myalgias. Skin: Negative for rash and wound. Neurological: Negative for dizziness and headaches. All other systems reviewed and are negative. Past medical/family/social history: reviewed and updated, see documented in patient's chart. Physical Exam: BP 132/83 Pulse 96 Ht 1.651 m (5' 5) Wt (!) 157.9 kg (348 lb 3.2 oz) SpO2 98% BMI 57.94 kg/m Smoking Status Never Smoker Body mass index is 57.94 kg/m . Physical Exam Constitutional: Appearance: She is morbidly obese. HENT: Head: Normocephalic and atraumatic. Eyes: Pupils: Pupils are equal, round, and reactive to light. Cardiovascular: Rate and Rhythm: Normal rate and regular rhythm. Heart sounds: Normal heart sounds. Pulmonary: Effort: Pulmonary effort is normal. Breath sounds: Normal breath sounds. Abdominal: Palpations: Abdomen is soft. Musculoskeletal: Cervical back: Normal range of motion and neck supple. Skin: General: Skin is warm and dry. Neurological: Mental Status: She is alert and oriented to person, place, and time. Assessment/Plan: 1. Benign essential hypertension Continue with weight loss journey, diet, and exercise changes, encouraged to continue monitoring this at home with the addition of phentermine as this can elevate blood pressure. 1. Class 3 severe obesity with serious comorbidity and body mass index (BMI) of 60.0 to 69.9 in adult, unspecified obesity type Patient did make valiant effort this month to make dietary changes and increase activity, start month #3 of phentermine, encouraged to keep momentum going and not get stuck on number on scale, she does feel physically better, continue dietary changes and increased activity, will consider qsymia again at follow up. - phentermine 37.5 MG tablet; Take 1 tablet by mouth every morning before breakfast. Dispense: 30 tablet; Refill: 0 - topiramate 25 MG tablet; Take 2 tablets by mouth 2 times daily. Dispense: 60 tablet; Refill: 0 Orders and follow up as documented in patient record; Patient was advised to call with any questions or concerns. If symptoms worsen patient was advised to follow up in our office or the Emergency Dept. Benefits, Risks, Contraindications, and Complications of recommended treatments were explained the patient understands and agrees to proceed with plan. MADDIE Tuttle 11/25/2021 [facility] History of Present illness Narrative* Nicolette Lala - 10/27/2021 3:20 PM EDT Nurse Note: Review of Systems Constitutional: Negative for fatigue and fever. HENT: Negative for congestion, ear pain and sore throat. Eyes: Negative for pain and redness. Respiratory: Negative for cough and shortness of breath. Cardiovascular: Negative for chest pain and palpitations. Gastrointestinal: Negative for abdominal pain, constipation, diarrhea, nausea and vomiting. Genitourinary: Negative for difficulty urinating and dysuria. Musculoskeletal: Negative for arthralgias and myalgias. Skin: Negative for rash and wound. Neurological: Negative for dizziness and headaches. All other systems reviewed and are negative. * MADDIE Tuttle - 10/27/2021 3:20 PM EDT Chief Complaint Patient presents with Weight Management Session Adipex #2 Hypertension HPI: Regarding Weight Gain: Yemi Jc is a 26 y.o. y.o. female who presents today with the complaint of obesity. She states that she has had gradual weight gain and would like to have assistance with weight loss. She has also been working on weight loss by: Diet: doing WW, hasn't been as good at tracking foods as she was previously, she does take the medication everyday, has been working a lot of overtime and hasn't been as consistent with diet. Exercise: has to walk very far every morning for her work, also her and sister have been going to the gym a couple times per week, is walking more outside because weather is nicer. Barriers: sometimes feels like she wants to snack, but the kortney is helping her choose healthy options She has used prescription medication for weight loss in the past. Including: Adipex She denies heart disease She does have: see problem list Past Medical History Includes Her Wt Readings from Last 3 Encounters: 10/27/21 (!) 160.1 kg (353 lb) 09/29/21 (!) 158.8 kg (350 lb) 09/02/21 (!) 158.2 kg (348 lb 12.8 oz) and current Body mass index is 58.74 kg/m . Reviewed today. Elevated BP: she is on losartan 50 mg BID for this, has been monitoring this at home on occasion, has been running 120-130s/80s at home, denies chest pain, shortness of breath, heart palpitations. ROS: Review of Systems Constitutional: Negative for fatigue and fever. HENT: Negative for congestion, ear pain and sore throat. Eyes: Negative for pain and redness. Respiratory: Negative for cough and shortness of breath. Cardiovascular: Negative for chest pain and palpitations. Gastrointestinal: Negative for abdominal pain, constipation, diarrhea, nausea and vomiting. Genitourinary: Negative for difficulty urinating and dysuria. Musculoskeletal: Negative for arthralgias and myalgias. Skin: Negative for rash and wound. Neurological: Negative for dizziness and headaches. All other systems reviewed and are negative. Past medical/family/social history: reviewed and updated, see documented in patient's chart. Physical Exam: BP 127/86 Pulse 98 Ht 1.651 m (5' 5) Wt (!) 160.1 kg (353 lb) BMI 58.74 kg/m Smoking Status Never Smoker Body mass index is 58.74 kg/m . Physical Exam Constitutional: Appearance: She is morbidly obese. HENT: Head: Normocephalic and atraumatic. Eyes: Pupils: Pupils are equal, round, and reactive to light. Cardiovascular: Rate and Rhythm: Normal rate and regular rhythm. Heart sounds: Normal heart sounds. Pulmonary: Effort: Pulmonary effort is normal. Breath sounds: Normal breath sounds. Abdominal: Palpations: Abdomen is soft. Musculoskeletal: Cervical back: Normal range of motion and neck supple. Skin: General: Skin is warm and dry. Neurological: Mental Status: She is alert and oriented to person, place, and time. Assessment/Plan: 1. Benign essential hypertension Continue with weight loss journey, diet, and exercise changes, encouraged to continue monitoring this at home with the addition of phentermine as this can elevate blood pressure. 2. Class 3 severe obesity with serious comorbidity and body mass index (BMI) of 60.0 to 69.9 in adult, unspecified obesity type Patient has gained three pounds this month, discussed meal planning and being more consistent with diet, discussed [place] law, patient must lose 12 pounds this next month or cannot continue with phentermine, verbalizes understanding. - phentermine 37.5 MG tablet; Take 1 tablet by mouth every morning before breakfast. Dispense: 30 tablet; Refill: 0 - topiramate 50 MG tablet; Take 1 tablet by mouth at bedtime. Dispense: 30 tablet; Refill: 0 Orders and follow up as documented in patient record; Patient was advised to call with any questions or concerns. If symptoms worsen patient was advised to follow up in our office or the Emergency Dept. Benefits, Risks, Contraindications, and Complications of recommended treatments were explained the patient understands and agrees to proceed with plan. MADDIE Tuttle 10/27/2021 documented in this [facility]05-04-2022 History of Present illness Narrative* Nicolette Lala - 09/29/2021 3:00 PM EDT Nurse Note: Review of Systems Constitutional: Negative for fatigue and fever. HENT: Negative for congestion, ear pain and sore throat. Eyes: Negative for pain and redness. Respiratory: Negative for cough and shortness of breath. Cardiovascular: Negative for chest pain and palpitations. Gastrointestinal: Negative for abdominal pain, constipation, diarrhea, nausea and vomiting. Genitourinary: Negative for difficulty urinating and dysuria. Musculoskeletal: Negative for arthralgias and myalgias. Skin: Negative for rash and wound. Neurological: Negative for dizziness and headaches. All other systems reviewed and are negative. * Fabi Giraldo, [employer] - 09/29/2021 3:00 PM EDT Chief Complaint Patient presents with Weight Management Session HPI: Regarding Weight Gain: Yemi Jc is a 26 y.o. y.o. female who presents today with the complaint of obesity. She states that she has had gradual weight gain and would like to have assistance with weight loss. She has also been working on weight loss by: Diet: doing WW, planning meals once again because schedule has now normalized, is also keeping to one portion at a time, cutting out snacking, is worried that she might be stuck at this weight and doesn't feel as effective anymore. Exercise: has to walk very far every morning for her work, also her and sister have been going to the gym a couple times per week, is walking more outside because weather is nicer. Barriers: sometimes feels like she wants to snack, but the kortney is helping her choose healthy options She has used prescription medication for weight loss in the past. Including: Adipex She denies heart disease She does have: see problem list Past Medical History Includes Her Wt Readings from Last 3 Encounters: 09/29/21 (!) 158.8 kg (350 lb) 09/02/21 (!) 158.2 kg (348 lb 12.8 oz) 08/03/21 (!) 159.6 kg (351 lb 12.8 oz) and current Body mass index is 58.24 kg/m . Reviewed today. Elevated BP: she is on losartan 50 mg BID for this, does report that she has had a lot of stress this month, has been monitoring this at home on occasion, has been running 120-130s/80s at home, denies chest pain, shortness of breath, heart palpitations, slightly elevated in office today but has nottaken her medication yet. ROS: Review of Systems Constitutional: Negative for fatigue and fever. HENT: Negative for congestion, ear pain and sore throat. Eyes: Negative for pain and redness. Respiratory: Negative for cough and shortness of breath. Cardiovascular: Negative for chest pain and palpitations. Gastrointestinal: Negative for abdominal pain, constipation, diarrhea, nausea and vomiting. Genitourinary: Negative for difficulty urinating and dysuria. Musculoskeletal: Negative for arthralgias and myalgias. Skin: Negative for rash and wound. Neurological: Negative for dizziness and headaches. All other systems reviewed and are negative. Past medical/family/social history: reviewed and updated, see documented in patient's chart. Physical Exam: BP 127/84 Pulse 87 Ht 1.651 m (5' 5) Wt (!) 158.8 kg (350 lb) SpO2 100% BMI 58.24 kg/m Smoking Status Never Smoker Body mass index is 58.24 kg/m . Physical Exam Constitutional: Appearance: She is morbidly obese. HENT: Head: Normocephalic and atraumatic. Eyes: Pupils: Pupils are equal, round, and reactive to light. Cardiovascular: Rate and Rhythm: Normal rate and regular rhythm. Heart sounds: Normal heart sounds. Pulmonary: Effort: Pulmonary effort is normal. Breath sounds: Normal breath sounds. Abdominal: Palpations: Abdomen is soft. Musculoskeletal: Cervical back: Normal range of motion and neck supple. Skin: General: Skin is warm and dry. Neurological: Mental Status: She is alert and oriented to person, place, and time. Assessment/Plan: 1. Benign essential hypertension Continue with weight loss journey, diet, and exercise changes, encouraged to continue monitoring this at home with the addition of qsymia as this can elevate blood pressure. 2. Class 3 severe obesity with serious comorbidity and body mass index (BMI) of 60.0 to 69.9 in adult, unspecified obesity type Start month #1 of phentermine, continue topiramate, stay consistent with dietary changes, [place] and 17.5 pound minimum weight loss goal in that time, she should lose at least 6 pounds before next visit to continue, continue with increased activity. - phentermine 37.5 MG tablet; Take 1 tablet by mouth every morning before breakfast. Dispense: 30 tablet; Refill: 0 - topiramate 50 MG tablet; Take 1 tablet by mouth at bedtime. Dispense: 30 tablet; Refill: 0 Orders and follow up as documented in patient record; Patient was advised to call with any questions or concerns. If symptoms worsen patient was advised to follow up in our office or the Emergency Dept. Benefits, Risks, Contraindications, and Complications of recommended treatments were explained the patient understands and agrees to proceed with plan. MADDIE Tuttle 09/29/2021 [facility] History of Present illness Narrative* Yaa Chinchilla - 09/02/2021 3:00 PM EDT Nurse Note: Review of Systems Constitutional: Negative for fatigue and fever. HENT: Negative for congestion, ear pain and sinus pain. Eyes: Negative for pain and redness. Respiratory: Negative for cough and shortness of breath. Cardiovascular: Negative for chest pain and palpitations. Gastrointestinal: Negative for abdominal pain, constipation, diarrhea, nausea and vomiting. Genitourinary: Negative for difficulty urinating and dysuria. Musculoskeletal: Negative for arthralgias and myalgias. Skin: Negative for rash and wound. Neurological: Negative for dizziness and headaches. All other systems reviewed and are negative. * Bita Andersen - 09/02/2021 3:00 PM EDT Weight management: Has lost 3lbs this month Diet: doing WW Exercise: has to walk very far every morning for her work, also her and sister have been going to the gym a couple times per week. Started a new job 3 weeks ago, back in a routine, which has made it much easier to focus on weight loss goals. Barriers: sometimes feels like she wants to snack, but the kortney is helping her choose healthy options HTN: has been out of medication for the day, is going to [facility] prescription today, and just got off work * MADDIE Tuttle - 09/02/2021 3:00 PM EDT Chief Complaint Patient presents with Weight Gain Fatigue HPI: Regarding Weight Gain: Yemi Jc is a 26 y.o. y.o. female who presents today with the complaint of obesity. She states that she has had gradual weight gain and would like to have assistance with weight loss. She has also been working on weight loss by: Diet: doing WW, planning meals once again because schedule has now normalized. Exercise: has to walk very far every morning for her work, also her and sister have been going to the gym a couple times per week. Barriers: sometimes feels like she wants to snack, but the kortney is helping her choose healthy options She has used prescription medication for weight loss in the past. Including: Adipex She denies heart disease She does have: see problem list Past Medical History Includes Her Wt Readings from Last 3 Encounters: 09/02/21 (!) 158.2 kg (348 lb 12.8 oz) 08/03/21 (!) 159.6 kg (351 lb 12.8 oz) 07/06/21 (!) 160.2 kg (353 lb 3.2 oz) and current Body mass index is 58.04 kg/m . Reviewed today. Elevated BP: she is on losartan 50 mg BID for this, does report that she has had a lot of stress this month, has been monitoring this at home on occasion, has been running 120-130s/80s at home, denies chest pain, shortness of breath, heart palpitations, slightly elevated in office today but has nottaken her medication yet. ROS: Review of Systems Constitutional: Negative for fatigue and fever. HENT: Negative for congestion, ear pain and sore throat. Eyes: Negative for pain and redness. Respiratory: Negative for cough and shortness of breath. Cardiovascular: Negative for chest pain and palpitations. Gastrointestinal: Negative for abdominal pain, constipation, diarrhea, nausea and vomiting. Genitourinary: Negative for difficulty urinating and dysuria. Musculoskeletal: Negative for arthralgias and myalgias. Skin: Negative for rash and wound. Neurological: Negative for dizziness and headaches. All other systems reviewed and are negative. Past medical/family/social history: reviewed and updated, see documented in patient's chart. Physical Exam: BP 132/88 (BP Location: Left arm, BP Position: Sitting) Pulse 84 Ht 1.651 m (5' 5) Wt (!) 158.2 kg (348 lb 12.8 oz) SpO2 99% BMI 58.04 kg/m Smoking Status Never Smoker Body mass index is 58.04 kg/m . Physical Exam Constitutional: Appearance: She is morbidly obese. HENT: Head: Normocephalic and atraumatic. Eyes: Pupils: Pupils are equal, round, and reactive to light. Cardiovascular: Rate and Rhythm: Normal rate and regular rhythm. Heart sounds: Normal heart sounds. Pulmonary: Effort: Pulmonary effort is normal. Breath sounds: Normal breath sounds. Abdominal: Palpations: Abdomen is soft. Musculoskeletal: Cervical back: Normal range of motion and neck supple. Skin: General: Skin is warm and dry. Neurological: Mental Status: She is alert and oriented to person, place, and time. Assessment/Plan: 1. Benign essential hypertension Continue with weight loss journey, diet, and exercise changes, encouraged to continue monitoring this at home with the addition of qsymia as this can elevate blood pressure. 2. Class 3 severe obesity with serious comorbidity and body mass index (BMI) of 60.0 to 69.9 in adult, unspecified obesity type Continue with medication, get consistent with dietary changes, goal to increase activity and consistency, continue counseling to develop better coping skills. - Phentermine-Topiramate (Qsymia) 15-92 MG Cap SR 24HR; Take 1 tablet by mouth daily. Dispense: 30 capsule; Refill: 0 Orders and follow up as documented in patient record; Patient was advised to call with any questions or concerns. If symptoms worsen patient was advised to follow up in our office or the Emergency Dept. Benefits, Risks, Contraindications, and Complications of recommended treatments were explained the patient understands and agrees to proceed with plan. MADDIE Tuttle 09/02/2021 documented in this [facility]03-08-2022 History of Present illness Narrative* Nicolette Lala - 08/03/2021 3:00 PM EST Nurse Note: Review of Systems Constitutional: Negative for fatigue and fever. HENT: Negative for congestion, ear pain and sore throat. Eyes: Negative for pain and redness. Respiratory: Negative for cough and shortness of breath. Cardiovascular: Negative for chest pain and palpitations. Gastrointestinal: Negative for abdominal pain, constipation, diarrhea, nausea and vomiting. Genitourinary: Negative for difficulty urinating and dysuria. Musculoskeletal: Negative for arthralgias and myalgias. Skin: Negative for rash and wound. Neurological: Negative for dizziness and headaches. All other systems reviewed and are negative. * Fabi Giraldo, [employer] - 08/03/2021 3:00 PM EST Chief Complaint Patient presents with Weight Management Session Refills needed for qsymia HPI: Regarding Weight Gain: Yemi Jc is a 26 y.o. y.o. female who presents today with the complaint of obesity. She states that she has had gradual weight gain and would like to have assistance with weight loss. She has also been working on weight loss by: Diet changes: Reports has been making a lot more meals at home, she is officially unemployed and isnow looking for jobs and interviewing, feels like she needs to get more focused on herself with diet, self-care, and looking for jobs, is working with her counselor on this, she does still feel like the medication is helping with her appetite and helping with binge eating tendencies. Exercise: just started going with her sister to the gym once a week. Behavior change/strategies to overcome barriers: increased stress, she is a stress and bored eater She has used prescription medication for weight loss in the past. Including: Adipex She denies heart disease She does have: see problem list Past Medical History Includes Her Wt Readings from Last 3 Encounters: 08/03/21 (!) 159.6 kg (351 lb 12.8 oz) 07/06/21 (!) 160.2 kg (353 lb 3.2 oz) 06/03/21 (!) 161.2 kg (355 lb 6.4 oz) and current Body mass index is 58.54 kg/m . Reviewed today. Elevated BP: she is on losartan 50 mg BID for this, does report that she has had a lot of stress this month, has been monitoring this at home on occasion, has been running 120-130s/80s at home, denies chest pain, shortness of breath, heart palpitations, reports is always elevated in doctor's offices. ROS: Review of Systems Constitutional: Negative for fatigue and fever. HENT: Negative for congestion, ear pain and sore throat. Eyes: Negative for pain and redness. Respiratory: Negative for cough and shortness of breath. Cardiovascular: Negative for chest pain and palpitations. Gastrointestinal: Negative for abdominal pain, constipation, diarrhea, nausea and vomiting. Genitourinary: Negative for difficulty urinating and dysuria. Musculoskeletal: Negative for arthralgias and myalgias. Skin: Negative for rash and wound. Neurological: Negative for dizziness and headaches. All other systems reviewed and are negative. Past medical/family/social history: reviewed and updated, see documented in patient's chart. Physical Exam: BP 126/84 Pulse 102 Ht 1.651 m (5' 5) Wt (!) 159.6 kg (351 lb 12.8 oz) BMI 58.54 kg/m Smoking Status Never Smoker Body mass index is 58.54 kg/m . Physical Exam Constitutional: Appearance: She is morbidly obese. HENT: Head: Normocephalic and atraumatic. Eyes: Pupils: Pupils are equal, round, and reactive to light. Cardiovascular: Rate and Rhythm: Normal rate and regular rhythm. Heart sounds: Normal heart sounds. Pulmonary: Effort: Pulmonary effort is normal. Breath sounds: Normal breath sounds. Abdominal: Palpations: Abdomen is soft. Musculoskeletal: Cervical back: Normal range of motion and neck supple. Skin: General: Skin is warm and dry. Neurological: Mental Status: She is alert and oriented to person, place, and time. Assessment/Plan: 1. Benign essential hypertension Continue with weight loss journey, diet, and exercise changes, encouraged to continue monitoring this at home with the addition of qsymia as this can elevate blood pressure. 2. Class 3 severe obesity with serious comorbidity and body mass index (BMI) of 60.0 to 69.9 in adult, unspecified obesity type Continue with medication, get consistent with dietary changes, goal to increase activity and consistency, continue counseling to develop better coping skills. - Phentermine-Topiramate (Qsymia) 15-92 MG Cap SR 24HR; Take 1 tablet by mouth daily. Dispense: 30 capsule; Refill: 0 Orders and follow up as documented in patient record; Patient was advised to call with any questions or concerns. If symptoms worsen patient was advised to follow up in our office or the Emergency Dept. Benefits, Risks, Contraindications, and Complications of recommended treatments were explained the patient understands and agrees to proceed with plan. MADDIE Tuttle 08/03/2021 [facility] History of Present illness Narrative* MADDIE Tuttle - 07/06/2021 3:00 PM EST Chief Complaint Patient presents with Weight Management Session HPI: Regarding Weight Gain: Yemi Jc is a 26 y.o. y.o. female who presents today with the complaint of obesity. She states that she has had gradual weight gain and would like to have assistance with weight loss. 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 Exercise: plans on restarting home exercises Behavior change/strategies to overcome barriers: increased stress, she is a stress and bored eater She has used prescription medication for weight loss in the past. Including: Adipex She denies heart disease She does have: see problem list Past Medical History Includes Her Wt Readings from Last 3 Encounters: 07/06/21 (!) 160.2 kg (353 lb 3.2 oz) 06/03/21 (!) 161.2 kg (355 lb 6.4 oz) 04/30/21 (!) 160 kg (352 lb 12.8 oz) and current Body mass index is 58.78 kg/m . Reviewed today. Elevated BP: she is on losartan 50 mg BID for this, does report that she has had a lot of stress this month, has been monitoring this at home on occasion, has been running 120-130s/80s at home, denies chest pain, shortness of breath, heart palpitations, reports is always elevated in doctor's offices. ROS: Review of Systems Constitutional: Negative for fatigue and fever. HENT: Negative for congestion, ear pain and sore throat. Eyes: Negative for pain and redness. Respiratory: Negative for cough and shortness of breath. Cardiovascular: Negative for chest pain and palpitations. Gastrointestinal: Negative for abdominal pain, constipation, diarrhea, nausea and vomiting. Genitourinary: Negative for difficulty urinating and dysuria. Musculoskeletal: Negative for arthralgias and myalgias. Skin: Negative for rash and wound. Neurological: Negative for dizziness and headaches. All other systems reviewed and are negative. Past medical/family/social history: reviewed and updated, see documented in patient's chart. Physical Exam: BP 128/87 (BP Location: Left arm, BP Position: Sitting) Pulse 90 Temp 97.7 F (36.5 C) (Temporal) Resp 16 Ht 1.651 m (5' 5) Wt (!) 160.2 kg (353 lb 3.2 oz) SpO2 99% BMI 58.78 kg/m Smoking Status Never Smoker Body mass index is 58.78 kg/m . Physical Exam Constitutional: Appearance: She is morbidly obese. HENT: Head: Normocephalic and atraumatic. Eyes: Pupils: Pupils are equal, round, and reactive to light. Cardiovascular: Rate and Rhythm: Normal rate and regular rhythm. Heart sounds: Normal heart sounds. Pulmonary: Effort: Pulmonary effort is normal. Breath sounds: Normal breath sounds. Abdominal: Palpations: Abdomen is soft. Musculoskeletal: Cervical back: Normal range of motion and neck supple. Skin: General: Skin is warm and dry. Neurological: Mental Status: She is alert and oriented to person, place, and time. Assessment/Plan: 1. Benign essential hypertension Continue with weight loss journey, diet, and exercise changes, suspect this is elevated today due to some anxiety, encouraged to continue monitoring this at home with the addition of qsymia as this can elevate blood pressure. 2. Class 3 severe obesity with serious comorbidity and body mass index (BMI) of 60.0 to 69.9 in adult, unspecified obesity type Increase medication and continue dietary changes with goal to increase activity and consistency, continue counseling to develop better coping skills. - Phentermine-Topiramate (Qsymia) 15-92 MG Cap SR 24HR; Take 1 tablet by mouth daily. Dispense: 30 capsule; Refill: 0 Orders and follow up as documented in patient record; Patient was advised to call with any questions or concerns. If symptoms worsen patient was advised to follow up in our office or the Emergency Dept. Benefits, Risks, Contraindications, and Complications of recommended treatments were explained the patient understands and agrees to proceed with plan. MADDIE Tuttle 07/06/2021 * Marlen Elizondo - 07/06/2021 3:00 PM EST Patient presents for weight management session. [place] [facility] History of Present illness Narrative* On a scale of 0 to 10, the patient rates the pain at 6. * Pain Location: BILATERAL HIPS,LEGS. * Pain Quality: Throbbing. * Sensory/ Motor: Numbness and BOTH HER FEET. * Timing/Duration: Constant and > 12 weeks duration. * Controlled Substance: * I have personally reviewed the [place] report for YEMI MOOREAYALAVaishali. I have considered the risks ofabuse, dependence, addiction and diversion. * Exacerbating Factors: rest, repetitive motion and sitting. * Alleviating Factors: Medications, Repositioning. * 24 Hour Behavior: * Symptoms are the same in the am. * Symptoms are worse as the day progresses. SITTING. * Symptoms are worse in the pm. SITTING. * Symptoms are worse when lying down. LAYING DOWN. * Goals for Pain Management: * OPIOID RISK SCORE=2. [facility] Phone: [phone]) 396-981312-14-2021 Chief complaint Narrative - Reported* An interactive audio and video telecommunication system which permits real time communications between the patient (at the originating site) and provider (at the distant site) was utilized to providethis telehealth service. * Verbal consent was requested and obtained from YEMI JC on this date, 05/11/2021 04:00 PM , for a telehealth visit. * VIRTUAL- PT HAD COVID 03/2021-PT HAD A DRY COUGH BUT IT CHANGED TO A WET CONGESTED COUGH X 6 DAYS AGO. PT ALSO HAS NASAL CONGESTION,WHEEZING,AND SHORTNESS OF BREATH. NO TEMP. -[facility] Work Phone: [phone]) [phone] History of Present illness Narrative* Patient presents today for.... * 1follow up illness * pt was diagnosed with COVID in mar through [facility] * she just treated supportively with OTC meds * pt noted rhinorrhea, congestion, no taste/smell but no fever, SOB or more concerning symptoms. symptoms improved in 10-14 days but symptoms were not resolved. she noted a dry cough still so she had ahumidifier which has helped until about last week - May 06 she noted inc sinus pressure/mucous and settling into her chest and she feels like she has a wet cough and is tired and needing to nap. Pt was worried about PNA so she went to the ER and they checked her lungs. she was given cough syrup and tessalon and was given mucinex as well. questioned PE but no further work up was done given her hx an d PE the ER felt this was less likely. She cont to suffer with symptoms * 2 Med check * HTN- on meds - * mood - stable on buspar and celexa * --effexor - didn't work * --prozac - didn't work * GERD - improved back on PPI * pain - stable - following with dr keenan -[facility] Work Phone: [phone]) 866-278012-03-2021 History of Present illness Narrative* Fabi Giraldo APRN-ONEAL - 04/30/2021 2:20 PM EST Chief Complaint Patient presents with Weight Gain Fatigue HPI: Regarding Weight Gain: Yemi Jc is a 26 y.o. y.o. female who presents today with the complaint of obesity. She states that she has had gradual weight gain and would like to have assistance with weight loss. She has also been working on weight loss by: Diet changes: qsymia was increased last visit, is trying to do more self-care activities, is reallyjust watching what kinds of food she is eating and watching portions, tested positive for Covid in middle of March so this derailed her eating habits somewhat. Exercise: was doing home exercise videos before she got Covid. Behavior change/strategies to overcome barriers: increased stress, she is a stress and bored eater She has used prescription medication for weight loss in the past. Including: Adipex She denies heart disease She does have: see problem list Past Medical History Includes Her Wt Readings from Last 3 Encounters: 04/30/21 (!) 160 kg (352 lb 12.8 oz) 03/11/21 (!) 159.8 kg (352 lb 4.8 oz) 01/26/21 (!) 163.1 kg (359 lb 9.6 oz) and current Body mass index is 58.71 kg/m . Reviewed today. Elevated BP: she is on losartan 50 mg BID for this, does report that she has had a lot of stress this month, has been monitoring this at home on occasion, has been running 120-130s/80s at home, denies chest pain, shortness of breath, heart palpitations, reports is always elevated in doctor's offices. ROS: Review of Systems Constitutional: Negative for fatigue and fever. HENT: Negative for congestion, ear pain and sore throat. Eyes: Negative for pain and redness. Respiratory: Negative for cough and shortness of breath. Cardiovascular: Negative for chest pain and palpitations. Gastrointestinal: Negative for abdominal pain, constipation, diarrhea, nausea and vomiting. Genitourinary: Negative for difficulty urinating and dysuria. Musculoskeletal: Negative for arthralgias and myalgias. Skin: Negative for rash and wound. Neurological: Negative for dizziness and headaches. All other systems reviewed and are negative. Past medical/family/social history: reviewed and updated, see documented in patient's chart. Physical Exam: BP (!) 142/91 Pulse 87 Ht 1.651 m (5' 5) Wt (!) 160 kg (352 lb 12.8 oz) BMI 58.71 kg/m Smoking Status Never Smoker Body mass index is 58.71 kg/m . Physical Exam Constitutional: Appearance: She is morbidly obese. HENT: Head: Normocephalic and atraumatic. Eyes: Pupils: Pupils are equal, round, and reactive to light. Cardiovascular: Rate and Rhythm: Normal rate and regular rhythm. Heart sounds: Normal heart sounds. Pulmonary: Effort: Pulmonary effort is normal. Breath sounds: Normal breath sounds. Abdominal: Palpations: Abdomen is soft. Musculoskeletal: Cervical back: Normal range of motion and neck supple. Skin: General: Skin is warm and dry. Neurological: Mental Status: She is alert and oriented to person, place, and time. Assessment/Plan: 1. Benign essential hypertension Continue with weight loss journey, diet, and exercise changes, suspect this is elevated today due to some anxiety, encouraged to continue monitoring this at home with the addition of qsymia as this can elevate blood pressure. 2. Class 3 severe obesity with serious comorbidity and body mass index (BMI) of 60.0 to 69.9 in adult, unspecified obesity type Increase medication and continue dietary changes with goal to increase activity and consistency. - Phentermine-Topiramate (Qsymia) 15-92 MG Cap SR 24HR; Take 1 tablet by mouth daily. Dispense: 30 capsule; Refill: 0 Orders and follow up as documented in patient record; Patient was advised to call with any questions or concerns. If symptoms worsen patient was advised to follow up in our office or the Emergency Dept. Benefits, Risks, Contraindications, and Complications of recommended treatments were explained the patient understands and agrees to proceed with plan. MADDIE Tuttle 04/30/2021 * Yaa Chinchilla - 04/30/2021 2:20 PM EST Nurse Note: Review of Systems Constitutional: Negative for fatigue and fever. HENT: Negative for congestion, ear pain and sinus pain. Eyes: Negative for pain and redness. Respiratory: Negative for cough and shortness of breath. Cardiovascular: Negative for chest pain and palpitations. Gastrointestinal: Negative for abdominal pain, constipation, diarrhea, nausea and vomiting. Genitourinary: Negative for difficulty urinating, dysuria and frequency. Musculoskeletal: Negative for arthralgias and myalgias. Skin: Negative for rash and wound. Neurological: Negative for dizziness and headaches. All other systems reviewed and are negative. documented in this [facility]07-27-[facility] History of Present illness Narrative* Fabi Giraldo, [employer]IPPER - 12/22/2020 3:40 PM EDT Chief Complaint Patient presents with Weight Gain Patient looking into qysymia Fatigue HPI: Regarding Weight Gain: Yemi Jc is a 25 y.o. y.o. female who presents today with the complaint of obesity. She states that she has had gradual weight gain and would like to have assistance with weight loss. She has also been working on weight loss by: Diet changes: was started on topiramate last visit and does report that this seems to be helping with appetite, doing weight watchers, reduced portions, decreased late night eating Exercise: has been walking with her friends, also has been swimming. Behavior change/strategies to overcome barriers: increased stress, she is a stress and bored eater She has used prescription medication for weight loss in the past. Including: Adipex She denies heart disease She does have: see problem list Past Medical History Includes Her Wt Readings from Last 3 Encounters: 12/22/20 (!) 161.8 kg (356 lb 9.6 oz) 12/02/20 (!) 160.6 kg (354 lb) 11/24/20 (!) 161 kg (355 lb) and current Body mass index is 59.34 kg/m . Reviewed today. Elevated BP: she is on losartan 50 mg BID for this, does report that she has had a lot of stress this month, has been monitoring this at home on occasion, has been running 120-130s/80s at home, denies chest pain, shortness of breath, heart palpitations. ROS: Review of Systems Constitutional: Negative for fatigue and fever. HENT: Negative for congestion, ear pain and sore throat. Eyes: Negative for pain and redness. Respiratory: Negative for cough and shortness of breath. Cardiovascular: Negative for chest pain and palpitations. Gastrointestinal: Negative for abdominal pain, constipation, diarrhea, nausea and vomiting. Genitourinary: Negative for difficulty urinating and dysuria. Musculoskeletal: Negative for arthralgias and myalgias. Skin: Negative for rash and wound. Neurological: Negative for dizziness and headaches. All other systems reviewed and are negative. Past medical/family/social history: reviewed and updated, see documented in patient's chart. Physical Exam: BP (!) 143/91 Pulse 90 Ht 1.651 m (5' 5) Wt (!) 161.8 kg (356 lb 9.6 oz) SpO2 98% BMI 59.34 kg/m Smoking Status Never Smoker Body mass index is 59.34 kg/m . Physical Exam Constitutional: Appearance: She is morbidly obese. HENT: Head: Normocephalic and atraumatic. Eyes: Pupils: Pupils are equal, round, and reactive to light. Cardiovascular: Rate and Rhythm: Normal rate and regular rhythm. Heart sounds: Normal heart sounds. Pulmonary: Effort: Pulmonary effort is normal. Breath sounds: Normal breath sounds. Abdominal: Palpations: Abdomen is soft. Musculoskeletal: Cervical back: Normal range of motion and neck supple. Skin: General: Skin is warm and dry. Neurological: Mental Status: She is alert and oriented to person, place, and time. Assessment/Plan: 1. Benign essential hypertension Continue with weight loss journey, diet, and exercise changes, suspect this is elevated today due to some anxiety, encouraged to continue monitoring this at home with the addition of qsymia as this can elevated blood pressure. 2. Class 3 severe obesity with serious comorbidity and body mass index (BMI) of 60.0 to 69.9 in adult, unspecified obesity type Start medication, continue with diet and exercise changes. - Phentermine-Topiramate (Qsymia) 3.75-23 MG Cap SR 24HR; Take 1 tablet by mouth daily for 14 days.Dispense: 14 capsule; Refill: 0 - Phentermine-Topiramate (Qsymia) 7.5-46 MG Cap SR 24HR; Take 1 tablet by mouth daily. Dispense: 30capsule; Refill: 0 Orders and follow up as documented in patient record; Patient was advised to call with any questions or concerns. If symptoms worsen patient was advised to follow up in our office or the Emergency Dept. Benefits, Risks, Contraindications, and Complications of recommended treatments were explained the patient understands and agrees to proceed with plan. MADDIE Tuttle 12/22/2020 * Yaa Chinchilla - 12/22/2020 3:40 PM EDT Nurse Note: Review of Systems Constitutional: Negative for fatigue and fever. HENT: Negative for congestion, ear pain and sinus pain. Eyes: Negative for pain and redness. Respiratory: Negative for cough and shortness of breath. Cardiovascular: Negative for chest pain and palpitations. Gastrointestinal: Negative for abdominal pain, constipation, diarrhea, nausea and vomiting. Genitourinary: Negative for difficulty urinating and dysuria. Musculoskeletal: Negative for arthralgias and myalgias. Skin: Negative for rash and wound. Neurological: Negative for dizziness and headaches. All other systems reviewed and are negative. documented in this [facility]07-07-[facility] History of Present illness Narrative* Zenia Falcon PA-C - 12/02/2020 4:45 PM EDT HPI Yemi Jc is a 25 y.o. female presenting to the clinic for urinary symptoms since this am. Symptoms include dysuria, urgency, frequency, hematuria. She denies fever/chills, abdominal pain, back pain or nausea/vomiting. Self treatment - none ROS Constitutional: Denies Fever or chills Gastrointestinal: Denies abdominal pain, Denies nausea, Denies vomiting, Denies diarrhea Genitourinary: SEE HPI Musculoskeletal: Denies back pain Social History Socioeconomic History Marital status: Single Spouse name: Not on file Number of children: Not on file Years of education: Not on file Highest education level: Not on file Occupational History Not on file Tobacco Use Smoking status: Never Smoker Smokeless tobacco: Never Used Vaping Use Vaping Use: Never used Substance and Sexual Activity Alcohol use: Not Currently Drug use: Never Sexual activity: Yes Partners: Male control/protection: Pill Other Topics Concern Service Not Asked Blood Transfusions Not Asked Caffeine Concern Not Asked Occupational Exposure Not Asked Hobby Hazards Not Asked Sleep Concern Not Asked Stress Concern Not Asked Weight Concern Not Asked Special Diet Not Asked Back Care Not Asked Exercise Not Asked Bike Helmet Not Asked Seat Belt Not Asked Domestic Violence No Social History Narrative Not on file Social Determinants of Health Financial Resource Strain: Difficulty of Paying Living Expenses: Food Insecurity: Worried About Running Out of Food in the Last Year: Ran Out of Food in the Last Year: Transportation Needs: Lack of Transportation (Medical): Lack of Transportation (Non-Medical): Physical Activity: Days of Exercise per Week: Minutes of Exercise per Session: Stress: Feeling of Stress : Social Connections: Frequency of Communication with Friends and Family: Frequency of Social Gatherings with Friends and Family: Attends Hinduism Services: Active Member of Clubs or Organizations: Attends Club or Organization Meetings: Marital Status: Intimate Partner Violence: Fear of Current or Ex-Partner: Emotionally Abused: Physically Abused: Sexually Abused: Family History Problem Relation Age of Onset Hypertension Mother Past Medical History: Diagnosis Date Essential hypertension, benign Interstitial cystitis Past Surgical History: Procedure Laterality Date APPENDECTOMY N/A PHYSICAL EXAM BP (!) 152/91 (BP Location: Right arm, BP Position: Sitting) Pulse 97 Temp 96.2 F (35.7 C) (Temporal) Resp 18 Ht 1.651 m (5' 5) Wt (!) 160.6 kg (354 lb) SpO2 99% BMI 58.91 kg/m Smoking Status Never Smoker Primary Assessment: Airway patent. Respirations unlabored, Normal respiratory effort Constitutional: Vital signs reviewed. Well appearing. No distress Psychiatric: Mental status appropriate. Normal affect Skin: Warm and dry. No rashes noted Gastrointestinal: No CVA tenderness. Abdomen soft, no masses or hepatosplenomegaly, no guarding or rigidity, no rebound tenderness. Positive for suprapubic tenderness with palpation. Musculoskeletal: All joints grossly normal. Neurologic: Alert and Oriented Results for orders placed or performed in visit on 12/02/20 POCT URINALYSIS DIPSTICK AUTOMATED W/O SCOP Result Value Ref Range POCT APPEARANCE, URINE cloudy POCT COLOR, URINE brown POCT GLUCOSE, URINE neg mg/dL POCT BILIRUBIN, URINE neg POCT KETONES, URINE neg mg/dL POCT SPECIFIC GRAVITY, URINE >=1.030 1.001 - 1.035 POCT BLOOD, URINE large POCT PH, URINE 5.5 5 - 7 POCT PROTEIN, URINE 100 mg/dL POCT UROBILINOGEN, URINE 0.2 0 - 2 E.U./dL POCT NITRITE, URINE neg POCT LEUKOCYTE, URINE trace POCT ESTERASE, URINE POCT BACTERIA, URINE POCT WBC, URINE POCT RBC, URINE POCT AMORPHOUS, URINE POCT CASTS, QUANTITATIVE, URINE POCT SQUAMOUS EPIS, URINE POCT RENAL EPIS, URINE POCT CRYSTALS, URINE POCT URINE COMMENTS, URINE Diagnosis/Plan: Yemi was seen today for urinary frequency and urinary pain. Diagnoses and all orders for this visit: Acute cystitis with hematuria - POCT URINALYSIS DIPSTICK AUTOMATED W/O SCOP - URINE CULTURE; Future - sulfamethoxazole-trimethoprim 800-160 MG per tablet; Take 1 tablet by mouth 2 times daily for 5 days. - phenazopyridine 200 MG tablet; Take 1 tablet by mouth 3 times daily for 2 days. Patient's urine will be sent to the lab for a urine culture. This office will contact the patient in 2-3 days with the results. If it is negative patient will be asked to stop the antibiotic and follow up with his/her primary care provider if he/she is still having symptoms. If symptoms worsen patient was advised to follow up in our office or with his/her PCP. Benefits, Risks, Contraindications, and Complications of recommended treatments were explained. The patient understands and agrees to proceed with plan. Zenia Falcon PA-C 12/02/2020 documented in this [facility]07-07-2021 Instructions* Patient Instructions* Zenia Falcon PA-C - 12/02/2020 4:45 PM EDT Images from the original note were not included. Urinary Tract Infection (UTI) in Women: Care Instructions Overview A urinary tract infection, or UTI, is a general term for an infection anywhere between the kidneys and the urethra (where urine comes out). Most UTIs are bladder infections. They often cause pain or burning when you urinate. UTIs are caused by bacteria and can be cured with antibiotics. Be sure to complete your treatment so that the infection does not get worse. Follow-up care is a smith part of your treatment and safety. Be sure to make and go to all appointments, and call your doctor if you are having problems. It's also a good idea to know your test resultsand keep a list of the medicines you take. How can you care for yourself at home? Take your antibiotics as directed. Do not stop taking them just because you feel better. You need to take the full course of antibiotics. Drink extra water and other fluids for the next day or two. This will help make the urine less concentrated and help wash out the bacteria that are causing the infection. (If you have kidney, heart, or liver disease and have to limit fluids, talk with your doctor before you increase the amount of fluids you drink.) Avoid drinks that are carbonated or have caffeine. They can irritate the bladder. Urinate often. Try to empty your bladder each time. To relieve pain, take a hot bath or lay a heating pad set on low over your lower belly or genital area. Never go to sleep with a heating pad in place. To prevent UTIs Drink plenty of water each day. This helps you urinate often, which clears bacteria from your system. (If you have kidney, heart, or liver disease and have to limit fluids, talk with your doctor before you increase the amount of fluids you drink.) Urinate when you need to. If you are sexually active, urinate right after you have sex. Change sanitary pads often. Avoid douches, bubble baths, feminine hygiene sprays, and other feminine hygiene products that havedeodorants. After going to the bathroom, wipe from front to back. When should you call for help? Call your doctor now or seek immediate medical care if: Symptoms such as fever, chills, nausea, or vomiting get worse or appear for the first time. You have new pain in your back just below your rib cage. This is called flank pain. There is new blood or pus in your urine. You have any problems with your antibiotic medicine. Watch closely for changes in your health, and be sure to contact your doctor if: You are not getting better after taking an antibiotic for 2 days. Your symptoms go away but then come back. Where can you learn more? Go to http://www.[employer].edu/patiented. Enter K848 in the search box to learn more about 'Urinary Tract Infection (UTI) in Women: Care Instructions.' Interested in seeing a video go to [email or web address] to see all video content. Current as of: July 08, 2020 Content Version: 12.9 [employer]. Care instructions adapted under license by your healthcare professional. If you have questions about a medical condition or this instruction, always ask your healthcare professional. [employer] disclaims any warranty or liability for your use of this information. [facility] History of Present illness Narrative* Zenia Falcon PA-C - 11/03/2020 2:20 PM EDT HPI Yemi Jc is a 25 y.o. female who presents today for complaint of cough since 5 days ago.Associated symptoms include sore throat, nasal congestion, ear pressure and mild fatigue. Denies fever/chills, headache, sinus pressure, ear pain, upset stomach, shortness of breath. Self treatment -DelsymSylvia Constitutional: Denies Fever, chills Eyes: Denies visual change or eye discharge Head/Ear/Nose/Throat: Denies earache,sinus congestion Respiratory: Denies shortness of breath Cardiovascular: Denies chest pain Gastrointestinal: Denies abdominal pain, Denies nausea, Denies vomiting, Denies diarrhea Musculoskeletal: Denies Joint pain, Denies muscle pain Lymphatic: Denies enlarged lymph nodes Skin: Denies Rash Neurological: Denies Headache, Denies focal neuro symptoms Social History Tobacco Use Smoking status: Never Smoker Smokeless tobacco: Never Used Vaping Use Vaping Use: Never used Substance Use Topics Alcohol use: Not Currently Drug use: Never Family History Problem Relation Age of Onset Hypertension Mother Past Medical History: Diagnosis Date Essential hypertension, benign Past Surgical History: Procedure Laterality Date APPENDECTOMY N/A EXAM BP (!) 146/98 (BP Location: Right arm, BP Position: Sitting) Pulse 104 Temp 98.1 F (36.7 C) (Oral) Resp 18 Ht 1.651 m (5' 5) Wt (!) 161.8 kg (356 lb 9.6 oz) SpO2 99% BMI 59.34 kg/m Smoking Status Never Smoker Primary Assessment: Airway patent. Respirations unlabored, Normal respiratory effort Constitutional: Vital signs reviewed. Well appearing. No distress Psychiatric: Mental status appropriate. Normal affect Skin: Warm and dry. No rashes noted Eyes: Conjunctiva clear. No photophobia HENT: Normocephalic. Ears - bilateral tympanic membranes dull, canals clear, Posterior pharynx clear. Lymphatics: no anterior cervical lymphadenopathy, no posterior cervical lymphadenopathy Cardio: regular rate and rhythm. No murmurs, rubs, or gallop Thorax/ Respiratory: Respiratory effort non-labored, lungs clear to ascultation Musculoskeletal: Neck supple Neurologic: Alert and Oriented Diagnosis/ Plan: Yemi was seen today for cough and sore throat. Diagnoses and all orders for this visit: Acute maxillary sinusitis, recurrence not specified - amoxicillin-clavulanate 875-125 MG tablet; Take 1 tablet by mouth every 12 hours for 10 days. Tylenol or Motrin as needed for pain/fever, OTC decongestant as needed. Follow up with PCP if no improvement in 4-5 days. If symptoms worsen patient was advised to follow up in our office or with his/her PCP. Benefits, Risks, Contraindications, and Complications of recommended treatments were explained. The patient understands and agrees to proceed with plan. Zenia Falcon PA-C 11/03/2020 documented in this [facility]06-08-2021 Instructions* Patient Instructions* Zenia Falcon PA-C - 11/03/2020 2:20 PM EDT Images from the original note were not included. Sinusitis: Care Instructions Your Care Instructions Sinusitis is an infection of the lining of the sinus cavities in your head. Sinusitis often followsa cold. It causes pain and pressure in your head and face. In most cases, sinusitis gets better on its own in 1 to 2 weeks. But some mild symptoms may last for several weeks. Sometimes antibiotics are needed. Follow-up care is a smith part of your treatment and safety. Be sure to make and go to all appointments, and call your doctor if you are having problems. It's also a good idea to know your test resultsand keep a list of the medicines you take. How can you care for yourself at home? Take an gtiv-nln-nphuaur pain medicine, such as acetaminophen (Tylenol), ibuprofen (Advil, Motrin),or naproxen (Aleve). Read and follow all instructions on the label. If the doctor prescribed antibiotics, take them as directed. Do not stop taking them just because you feel better. You need to take the full course of antibiotics. Be careful when taking fwgf-[id number] cold or flu medicines and Tylenol at the same time. Many ofthese medicines have acetaminophen, which is Tylenol. Read the labels to make sure that you are nottaking more than the recommended dose. Too much acetaminophen (Tylenol) can be harmful. Breathe warm, moist air from a steamy shower, a hot bath, or a sink filled with hot water. Avoid cold, dry air. Using a humidifier in your home may help. Follow the directions for cleaning the machine. Use saline (saltwater) nasal washes. This can help keep your nasal passages open and wash out mucusand bacteria. You can buy saline nose drops at a grocery store or drugstore. Or you can make your own at home by adding 1 teaspoon of salt and 1 teaspoon of baking soda to 2 cups of distilled water. If you make your own, fill a bulb syringe with the solution, insert the tip into your nostril, and squeeze gently. Blow your nose. Put a hot, wet towel or a warm gel pack on your face 3 or 4 times a day for 5 to 10 minutes each time. Try a decongestant nasal spray like oxymetazoline (Afrin). Do not use it for more than 3 days in a row. Using it for more than 3 days can make your congestion worse. When should you call for help? Call your doctor now or seek immediate medical care if: You have new or worse swelling or redness in your face or around your eyes. You have a new or higher fever. Watch closely for changes in your health, and be sure to contact your doctor if: You have new or worse facial pain. The mucus from your nose becomes thicker (like pus) or has new blood in it. You are not getting better as expected. Where can you learn more? Go to http://www.[employer].osu.edu/patiented. Enter I933 in the search box to learn more about 'Sinusitis: Care Instructions.' Interested in seeing a video go to [email or web address] to see all video content. Current as of: April 29, 2020 Content Version: 12.9 [employer]. Care instructions adapted under license by your healthcare professional. If you have questions about a medical condition or this instruction, always ask your healthcare professional. [employer] disclaims any warranty or liability for your use of this information. [facility] History of Present illness Narrative* Charlotte Farah MD - 10/02/2020 2:15 PM EDT Chief Complaint Patient presents with Weight Gain Adipex #3 Fatigue HPI: Regarding Weight Gain: Yemi Jc is a 25 y.o. y.o. female who presents today with the complaint of obesity. She states that she has had gradual weight gain and would like to have assistance with weight loss. She has also been working on weight loss by: Diet changes: doing weight watchers, reduced portions, no pre-prepared foods, decreased late night eating Exercise: has not been as active as she has wanted Behavior change/strategies to overcome barriers: increased stress, she is a stress and bored eater She has used prescription medication for weight loss in the past. Including: Adipex She denies heart disease She does have: see problem list Past Medical History Includes Her Wt Readings from Last 3 Encounters: 10/02/20 (!) 164.1 kg (361 lb 12.8 oz) 09/04/20 (!) 166.7 kg (367 lb 9.6 oz) 08/06/20 (!) 170.6 kg (376 lb) and current Body mass index is 60.21 kg/m . Reviewed today. Stress: she states she doesn't have a good way of dealing with her stress right now but she is working on it. ROS: Review of Systems Nurse Note: Review of Systems Constitutional: Negative for fatigue and fever. HENT: Negative for congestion, ear pain and sore throat. Eyes: Negative for pain and redness. Respiratory: Negative for cough and shortness of breath. Cardiovascular: Negative for chest pain and palpitations. Gastrointestinal: Negative for abdominal pain, constipation, diarrhea and nausea. Genitourinary: Negative for difficulty urinating and dysuria. Musculoskeletal: Negative for arthralgias and myalgias. Skin: Negative for rash and wound. Neurological: Negative for dizziness and headaches. All other systems reviewed and are negative. Past medical/family/social history: reviewed and updated, see documented in patient's chart. Physical Exam: BP 140/86 Pulse 92 Ht 1.651 m (5' 5) Wt (!) 164.1 kg (361 lb 12.8 oz) BMI 60.21 kg/m Smoking Status Never Smoker Body mass index is 60.21 kg/m . Physical Exam Constitutional: Appearance: She is morbidly obese. HENT: Head: Normocephalic and atraumatic. Eyes: Pupils: Pupils are equal, round, and reactive to light. Cardiovascular: Rate and Rhythm: Normal rate and regular rhythm. Heart sounds: Normal heart sounds. Pulmonary: Effort: Pulmonary effort is normal. Breath sounds: Normal breath sounds. Abdominal: Palpations: Abdomen is soft. Musculoskeletal: Cervical back: Normal range of motion and neck supple. Skin: General: Skin is warm and dry. Neurological: Mental Status: She is alert and oriented to person, place, and time. Assessment/Plan: 1. Class 3 severe obesity with serious comorbidity and body mass index (BMI) of 60.0 to 69.9 in adult, unspecified obesity type Advised diet changes, exercise and weight loss - phentermine 37.5 MG tablet; Take 1 tablet by mouth every morning before breakfast. Dispense: 30 tablet; Refill: 0 2. Stress Discussed working on coping skills so that she doesn't turn to eating during times of stress. Orders and follow up as documented in patient record; Medications Discontinued During This Encounter Medication Reason phentermine 37.5 MG tablet Reorder Requested Prescriptions Signed Prescriptions Disp Refills phentermine 37.5 MG tablet 30 tablet 0 Sig: Take 1 tablet by mouth every morning before breakfast. Patient was advised to call with any questions or concerns. If symptoms worsen patient was advised to follow up in our office or the Emergency Dept. Benefits, Risks, Contraindications, and Complications of recommended treatments were explained the patient understands and agrees to proceed with plan. Charlotte Farah MD 10/03/2020 * Nkechi Headley - 10/02/2020 2:15 PM EDT Nurse Note: Review of Systems Constitutional: Negative for fatigue and fever. HENT: Negative for congestion, ear pain and sore throat. Eyes: Negative for pain and redness. Respiratory: Negative for cough and shortness of breath. Cardiovascular: Negative for chest pain and palpitations. Gastrointestinal: Negative for abdominal pain, constipation, diarrhea and nausea. Genitourinary: Negative for difficulty urinating and dysuria. Musculoskeletal: Negative for arthralgias and myalgias. Skin: Negative for rash and wound. Neurological: Negative for dizziness and headaches. All other systems reviewed and are negative. [facility]* Diagnosis Stress- Primary Other psychological or physical stress, not elsewhere classified Class 3 severe obesity with serious comorbidity and body mass index (BMI) of 60.0 to 69.9 in adult, unspecified obesity type [facility] Diagnosis Acute maxillary sinusitis, recurrence not specified- Primary [facility] Diagnosis Acute cystitis with hematuria- Primary Acute cystitis [facility]* Diagnosis Class 3 severe obesity with serious comorbidity and body mass index (BMI) of 60.0 to 69.9 in adult, unspecified obesity type [facility]* Diagnosis Class 3 severe obesity with serious comorbidity and body mass index (BMI) of 60.0 to 69.9 in adult, unspecified obesity type [facility]* Diagnosis Benign essential hypertension- Primary Essential hypertension, benign Class 3 severe obesity with serious comorbidity and body mass index (BMI) of 60.0 to 69.9 in adult, unspecified obesity type [facility] Diagnosis Benign essential hypertension- Primary Essential hypertension, benign Class 3 severe obesity with serious comorbidity and body mass index (BMI) of 60.0 to 69.9 in adult, unspecified obesity type [facility] Diagnosis Benign essential hypertension- Primary Essential hypertension, benign Class 3 severe obesity with serious comorbidity and body mass index (BMI) of 60.0 to 69.9 in adult, unspecified obesity type [facility]* Diagnosis Benign essential hypertension- Primary Essential hypertension, benign Class 3 severe obesity with serious comorbidity and body mass index (BMI) of 60.0 to 69.9 in adult, unspecified obesity type [facility] Diagnosis Benign essential hypertension- Primary Essential hypertension, benign Class 3 severe obesity with serious comorbidity and body mass index (BMI) of 60.0 to 69.9 in adult, unspecified obesity type [facility]* Diagnosis Class 3 severe obesity with serious comorbidity and body mass index (BMI) of 60.0 to 69.9 in adult, unspecified obesity type [facility]* Diagnosis Benign essential hypertension- Primary Essential hypertension, benign BMI 50.0-59.9, adult Body Mass Index 50.0-59.9, adult documented [facility]* Diagnosis BMI 50.0-59.9, adult Body Mass Index 50.0-59.9, adult [facility]* Diagnosis Benign essential hypertension- Primary Essential hypertension, benign Metabolic syndrome Dysmetabolic Syndrome X Fatigue, unspecified type [facility]* Diagnosis Benign essential hypertension- Primary Essential hypertension, benign BMI 50.0-59.9, adult Body Mass Index 50.0-59.9, adult documented in this encounter [facility] noteNo assessment information availableWSt. Vincent [facility] Work Phone: evaluation note* Diagnosis Binge eating disorder- Primary documented [facility]* Diagnosis Binge eating disorder documented in this [facility]* Diagnosis Binge eating disorder- Primary Benign essential hypertension Essential hypertension, benign documented [facility]* Diagnosis Onset Date Resolution Status Acute bronchitis, unspecified acute Influenza A acute [facility] Work Phone: evaluation note* Diagnosis Binge eating disorder- Primary Benign essential hypertension Essential hypertension, benign documented [facility] this [facility]* Diagnosis Hypercholesterolemia- Primary Pure hypercholesterolemia Dyspepsia Dyspepsia and other specified disorders of function of stomach Benign essential hypertension Essential hypertension, benign Glucose intolerance (impaired glucose tolerance) Impaired glucose tolerance test Low vitamin B12 level Low ferritin Other nonspecific findings on examination of blood Fibromyalgia Unspecified myalgia and myositis Depression, major, single episode, mild (CMS/HCC) JESSICA (generalized anxiety disorder) Generalized anxiety disorder 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 (CMS/HCC) documented in this encounter [facility] Work Phone: Evaluation note* Diagnosis Binge eating disorder- Primary Benign essential hypertension Essential hypertension, benign [facility]* Diagnosis Binge eating disorder- Primary Benign essential hypertension Essential hypertension, benign [facility]* Diagnosis Benign essential hypertension- Primary Essential hypertension, benign Hypercholesterolemia Pure hypercholesterolemia 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 (CMS/HCC) Glucose intolerance (impaired glucose tolerance) Impaired glucose tolerance test Low vitamin B12 level Low ferritin Other nonspecific findings on examination of blood Depression, major, single episode, mild (CMS/HCC) JESSICA (generalized anxiety disorder) Generalized anxiety disorder Fibromyalgia Unspecified myalgia and myositis Decreased libido documented in this encounter [facility] Work Phone: Evaluation note* Diagnosis Binge eating disorder documented in this encounter [facility]* Diagnosis Acute viral syndrome- Primary documented in this encounter [facility] Work Phone: Evaluation note* Diagnosis Binge eating disorder [facility] Diagnosis Binge eating disorder- Primary Benign essential hypertension Essential hypertension, benign [facility]* Diagnosis Binge eating disorder, unspecified severity- Primary Benign essential hypertension Essential hypertension, benign documented in this encounter [facility]* Diagnosis Binge eating disorder, unspecified severity- Primary documented in this encounter [facility]* Diagnosis Benign essential hypertension- Primary Essential hypertension, benign Low vitamin B12 level Hypercholesterolemia Pure hypercholesterolemia Glucose intolerance (impaired glucose tolerance) Impaired glucose tolerance test Low ferritin Other nonspecific findings on examination of blood 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 (Multi) Depression, major, single episode, mild (CMS-HCC) JESSICA (generalized anxiety disorder) Generalized anxiety disorder documented in this encounter [facility] Work Phone: Evaluation note* Diagnosis Binge eating disorder, unspecified severity- Primary Binge eating disorder, unspecified severity [facility]* Diagnosis Glucose intolerance (impaired glucose tolerance)- Primary Impaired glucose tolerance test Low vitamin B12 level Benign essential hypertension Essential hypertension, benign Hypercholesterolemia Pure hypercholesterolemia Low ferritin Other nonspecific findings on examination of blood Class 3 severe obesity due to excess calories with serious comorbidity and body mass index (BMI) of 60.0 to 69.9 in adult Depression, major, single episode, mild (CMS-HCC) documented in this encounter [facility] Work Phone: Evaluation note* Diagnosis Paroxysmal atrial fibrillation (Multi)- Primary Atrial fibrillation Anxiety Anxiety state, unspecified Snoring Other dyspnea and respiratory abnormality Family history of sleep apnea Family history of other condition Morbid obesity with BMI of 60.0-69.9, adult (Multi) Glucose intolerance (impaired glucose tolerance) Impaired glucose tolerance test Benign essential hypertension Essential hypertension, benign Palpitations documented in this encounter [facility] Work Phone: Evaluation note* Diagnosis Binge eating disorder, unspecified severity- Primary Binge eating disorder, unspecified severity BMI 60.0-69.9, adult- Primary Body Mass Index 60.0-69.9, adult Binge eating disorder, unspecified severity Atrial fibrillation, unspecified type Benign essential hypertension Essential hypertension, benign Impaired glucose tolerance Impaired glucose tolerance test [facility]* Diagnosis BEST (obstructive sleep apnea)- Primary Obstructive sleep apnea (adult) (pediatric) Depression, major, single episode, mild (CMS-HCC) JESSICA (generalized anxiety disorder) Generalized anxiety disorder Paroxysmal atrial fibrillation (Multi) Atrial fibrillation Benign essential hypertension Essential hypertension, benign Class 3 severe obesity due to excess calories with serious comorbidity and body mass index (BMI) of 60.0 to 69.9 in adult Binge eating disorder, unspecified severity documented in this encounter [facility] Work Phone: Evaluation note* Diagnosis BEST (obstructive sleep apnea)- Primary Obstructive sleep apnea (adult) (pediatric) JESSICA (generalized anxiety disorder) Generalized anxiety disorder Benign essential hypertension Essential hypertension, benign Paroxysmal atrial fibrillation (Multi) Atrial fibrillation Class 3 severe obesity due to excess calories with serious comorbidity and body mass index (BMI) of 60.0 to 69.9 in adult documented in this encounter [facility] Work Phone: History of Present illness Narrative* On a scale of 0 to 10, the patient rates the pain at 3. * Pain Location: Low Back Pain. * Pain Quality: Stabbing. * Pain Radiation: nayely hips, buttocks. * Timing/Duration: Constant and > 12 weeks duration. [facility] Work Phone: History of Present illness Narrative* MELCHOR RAMIREZ PATIENT THAT Presents today for 6 MONTHS [facility] LAB F/U. NO NEW COMPLAINTS * LIPIDS- DIET MODIFICATIONS DISCUSSED * ANXIETY/DEPRESSION- STABLE * FIBRO/BACK PAIN- FOLLOWS WITH PAIN MANAGEMENT. STABLE * B12- STABLE * HTN- STABLE [facility] Work Phone: History of Present illness Narrative* Patient presents today for.... * 1 to review labs * 2 Med check * HTN- on meds - * B12 - on injection on occasion and OTC supplement * mood - stable on buspar and celexa * --effexor - didn't work * --prozac - didn't work * GERD - improved back on PPI but have note symptoms flared up a few days ago * pain - stable - following with dr keenan * wt loss - following with specialists and is on adipex at this time * 3 GERD symptoms * chronic epigastric pain that comes nad goes for a few days * aggravated with food * pt is on omeprazole 20 mg bid and occasionally doubles up * she is on tums/pepto on occasion as well * she does have hx of ulcer and feels similar * 4 Preventative testing * PAP * mammo - suggest age 40 * colonoscopy - suggest age 45-50 * DEXA - suggest age 50-55 [facility] Work Phone: History of Present illness Narrative* Patient presents today for.... * 1 to review labs * 2 Med check * HTN- on meds - * B12 - on injection on occasion and OTC supplement * mood - stable on buspar and celexa * --effexor - didn't work * --prozac - didn't work * GERD - improved back on PPI but have note symptoms flared up a few days ago * pain - stable - following with dr keenan * wt loss - following with specialists and is on adipex at this time * 3 GERD symptoms * chronic epigastric pain that comes nad goes for a few days * aggravated with food * pt is on omeprazole 20 mg bid and occasionally doubles up * she is on tums/pepto on occasion as well * she does have hx of ulcer and feels similar * 4 Preventative testing * PAP * mammo - suggest age 40 * colonoscopy - suggest age 45-50 * DEXA - suggest age 50-55 [facility] Work Phone: History of Present illness Narrative* Patient presents today for.... * 1 to review labs * 2 Med check * HTN- on meds - * B12 - on injection on occasion and OTC supplement * mood - stable on buspar and celexa * --effexor - didn't work * --prozac - didn't work * GERD - improved back on PPI * pain - stable - following with dr keenan * wt loss - following with specialists and has been on/off adipex * 3 Preventative testing * PAP - [facility] - last exam was september * mammo - suggest age 40 * colonoscopy - suggest age 45-50 * DEXA - suggest age 50-55 [facility] Work Phone: Summary Purpose Family History Grandparent Name Dates Details Family history of depression (V17.0, Z81.8) Status:Active Family history of hypertensi on(V17.49, Z82.49) Status:Active Family history of type 2 romulo betes mellitus(V18.0, Z83.3) Status:Active Family history of cervical c ancer(V16.49, Z80.49) Status:Active Family history of emphysema( V17.6, Z82.5) Status:Active Family history of Allergies( 995.3, T78.40XA) Status:Active Mother Name Dates Details Family history of depression (V17.0, Z81.8) Status:Active Family history of hypertensi on(V17.49, Z82.49) Status:Active Family history of Allergies( 995.3, T78.40XA) Status:Active Sister Name Dates Details Family history of depression (V17.0, Z81.8) Status:Active Grandparent Name Dates Details Family history of depression (V17.0, Z81.8) Status:Active Family history of hypertensi on(V17.49, Z82.49) Status:Active Family history of type 2 romulo betes mellitus(V18.0, Z83.3) Status:Active Family history of cervical c ancer(V16.49, Z80.49) Status:Active Family history of emphysema( V17.6, Z82.5) Status:Active Family history of Allergies( 995.3, T78.40XA) Status:Active Mother Name Dates Details Family history of depression (V17.0, Z81.8) Status:Active Family history of hypertensi on(V17.49, Z82.49) Status:Active Family history of Allergies( 995.3, T78.40XA) Status:Active Sister Name Dates Details Family history of depression (V17.0, Z81.8) Status:Active Grandparent Name Dates Details Family history of depression (V17.0, Z81.8) Status:Active Family history of hypertensi on(V17.49, Z82.49) Status:Active Family history of type 2 romulo betes mellitus(V18.0, Z83.3) Status:Active Family history of cervical c ancer(V16.49, Z80.49) Status:Active Family history of emphysema( V17.6, Z82.5) Status:Active Family history of Allergies( 995.3, T78.40XA) Status:Active Mother Name Dates Details Family history of depression (V17.0, Z81.8) Status:Active Family history of hypertensi on(V17.49, Z82.49) Status:Active Family history of Allergies( 995.3, T78.40XA) Status:Active Sister Name Dates Details Family history of depression (V17.0, Z81.8) Status:Active Grandparent Name Dates Details Family history of depression (V17.0, Z81.8) Status:Active Family history of hypertensi on(V17.49, Z82.49) Status:Active Family history of type 2 romulo betes mellitus(V18.0, Z83.3) Status:Active Family history of cervical c ancer(V16.49, Z80.49) Status:Active Family history of emphysema( V17.6, Z82.5) Status:Active Family history of Allergies( 995.3, T78.40XA) Status:Active Mother Name Dates Details Family history of depression (V17.0, Z81.8) Status:Active Family history of hypertensi on(V17.49, Z82.49) Status:Active Family history of Allergies( 995.3, T78.40XA) Status:Active Sister Name Dates Details Family history of depression (V17.0, Z81.8) Status:Active Grandparent Name Dates Details Family history of depression (V17.0, Z81.8) Status:Active Family history of hypertensi on(V17.49, Z82.49) Status:Active Family history of type 2 romulo betes mellitus(V18.0, Z83.3) Status:Active Family history of cervical c ancer(V16.49, Z80.49) Status:Active Family history of emphysema( V17.6, Z82.5) Status:Active Family history of Allergies( 995.3, T78.40XA) Status:Active Mother Name Dates Details Family history of depression (V17.0, Z81.8) Status:Active Family history of hypertensi on(V17.49, Z82.49) Status:Active Family history of Allergies( 995.3, T78.40XA) Status:Active Sister Name Dates Details Family history of depression (V17.0, Z81.8) Status:Active Grandparent Name Dates Details Family history of depression (V17.0, Z81.8) Status:Active Family history of Allergies( 995.3, T78.40XA) Status:Active Family history of hypertensi on(V17.49, Z82.49) Status:Active Family history of type 2 romulo betes mellitus(V18.0, Z83.3) Status:Active Family history of cervical c ancer(V16.49, Z80.49) Status:Active Family history of emphysema( V17.6, Z82.5) Status:Active Mother Name Dates Details Family history of depression (V17.0, Z81.8) Status:Active Family history of Allergies( 995.3, T78.40XA) Status:Active Family history of hypertensi on(V17.49, Z82.49) Status:Active Sister Name Dates Details Family history of depression (V17.0, Z81.8) Status:Active Grandparent Name Dates Details Family history of depression (V17.0, Z81.8) Status:Active Family history of hypertensi on(V17.49, Z82.49) Status:Active Family history of type 2 romulo betes mellitus(V18.0, Z83.3) Status:Active Family history of cervical c ancer(V16.49, Z80.49) Status:Active Family history of emphysema( V17.6, Z82.5) Status:Active Family history of Allergies( 995.3, T78.40XA) Status:Active Mother Name Dates Details Family history of depression (V17.0, Z81.8) Status:Active Family history of hypertensi on(V17.49, Z82.49) Status:Active Family history of Allergies( 995.3, T78.40XA) Status:Active Sister Name Dates Details Family history of depression (V17.0, Z81.8) Status:Active Unknown Family Member Name Dates Details Family history of depression : Mother, Grandparent, Sister(V17.0, Z81.8) Status:Active Family history of hypertensi on: Mother, Grandparent(V17.49, Z82.49) Status:Active Family history of type 2 romulo betes mellitus: Grandparent(V18.0, Z83.3) Status:Active Family history of cervical c ancer: Grandparent(V16.49, Z80.49) Status:Active Family history of emphysema: Grandparent(V17.6, Z82.5) Status:Active Allergies: Mother, Grandpare nt Status:Active Unknown Family Member Name Dates Details Family history of depression : Mother, Grandparent, Sister(V17.0, Z81.8) Status:Active Family history of hypertensi on: Mother, Grandparent(V17.49, Z82.49) Status:Active Family history of type 2 romulo betes mellitus: Grandparent(V18.0, Z83.3) Status:Active Family history of cervical c ancer: Grandparent(V16.49, Z80.49) Status:Active Family history of emphysema: Grandparent(V17.6, Z82.5) Status:Active Allergies: Mother, Grandpare nt Status:Active Unknown Family Member Name Dates Details Family history of depression : Mother, Grandparent, Sister(V17.0, Z81.8) Status:Active Family history of hypertensi on: Mother, Grandparent(V17.49, Z82.49) Status:Active Family history of type 2 romulo betes mellitus: Grandparent(V18.0, Z83.3) Status:Active Family history of cervical c ancer: Grandparent(V16.49, Z80.49) Status:Active Family history of emphysema: Grandparent(V17.6, Z82.5) Status:Active Allergies: Mother, Grandpare nt Status:Active Unknown Family Member Name Dates Details Family history of depression : Mother, Grandparent, Sister(V17.0, Z81.8) Status:Active Family history of hypertensi on: Mother, Grandparent(V17.49, Z82.49) Status:Active Family history of type 2 romulo betes mellitus: Grandparent(V18.0, Z83.3) Status:Active Family history of cervical c ancer: Grandparent(V16.49, Z80.49) Status:Active Family history of emphysema: Grandparent(V17.6, Z82.5) Status:Active Allergies: Mother, Grandpare nt Status:Active Unknown Family Member Name Dates Details Family history of depression : Mother, Grandparent, Sister(V17.0, Z81.8) Status:Active Family history of hypertensi on: Mother, Grandparent(V17.49, Z82.49) Status:Active Family history of type 2 romulo betes mellitus: Grandparent(V18.0, Z83.3) Status:Active Family history of cervical c ancer: Grandparent(V16.49, Z80.49) Status:Active Family history of emphysema: Grandparent(V17.6, Z82.5) Status:Active Allergies: Mother, Grandpare nt Status:Active Unknown Family Member Name Dates Details Allergies: Mother, Grandpare nt Status:Active Family history of emphysema: Grandparent(V17.6, Z82.5) Status:Active Family history of cervical c ancer: Grandparent(V16.49, Z80.49) Status:Active Family history of type 2 romulo betes mellitus: Grandparent(V18.0, Z83.3) Status:Active Family history of hypertensi on: Mother, Grandparent(V17.49, Z82.49) Status:Active Family history of depression : Mother, Grandparent, Sister(V17.0, Z81.8) Status:Active Unknown Family Member Name Dates Details Family history of depression : Mother, Grandparent, Sister(V17.0, Z81.8) Status:Active Family history of hypertensi on: Mother, Grandparent(V17.49, Z82.49) Status:Active Family history of type 2 romulo betes mellitus: Grandparent(V18.0, Z83.3) Status:Active Family history of cervical c ancer: Grandparent(V16.49, Z80.49) Status:Active Family history of emphysema: Grandparent(V17.6, Z82.5) Status:Active Allergies: Mother, Grandpare nt Status:Active Unknown Family Member Name Dates Details Family history of depression : Mother, Grandparent, Sister(V17.0, Z81.8) Status:Active Family history of hypertensi on: Mother, Grandparent(V17.49, Z82.49) Status:Active Family history of type 2 romulo betes mellitus: Grandparent(V18.0, Z83.3) Status:Active Family history of cervical c ancer: Grandparent(V16.49, Z80.49) Status:Active Family history of emphysema: Grandparent(V17.6, Z82.5) Status:Active Allergies: Mother, Grandpare nt Status:Active Unknown Family Member Name Dates Details Family history of depression : Mother, Grandparent, Sister(V17.0, Z81.8) Status:Active Family history of hypertensi on: Mother, Grandparent(V17.49, Z82.49) Status:Active Family history of type 2 romulo betes mellitus: Grandparent(V18.0, Z83.3) Status:Active Family history of cervical c ancer: Grandparent(V16.49, Z80.49) Status:Active Family history of emphysema: Grandparent(V17.6, Z82.5) Status:Active Allergies: Mother, Grandpare nt Status:Active Unknown Family Member Name Dates Details Family history of depression : Mother, Grandparent, Sister(V17.0, Z81.8) Status:Active Family history of hypertensi on: Mother, Grandparent(V17.49, Z82.49) Status:Active Family history of type 2 romulo betes mellitus: Grandparent(V18.0, Z83.3) Status:Active Family history of cervical c ancer: Grandparent(V16.49, Z80.49) Status:Active Family history of emphysema: Grandparent(V17.6, Z82.5) Status:Active Allergies: Mother, Grandpare nt Status:Active Unknown Family Member Name Dates Details Allergies: Mother, Grandpare nt Status:Active Family history of emphysema: Grandparent(V17.6, Z82.5) Status:Active Family history of cervical c ancer: Grandparent(V16.49, Z80.49) Status:Active Family history of type 2 romulo betes mellitus: Grandparent(V18.0, Z83.3) Status:Active Family history of hypertensi on: Mother, Grandparent(V17.49, Z82.49) Status:Active Family history of depression : Mother, Grandparent, Sister(V17.0, Z81.8) Status:Active Unknown Family Member Name Dates Details Family history of depression : Mother, Grandparent, Sister(V17.0, Z81.8) Status:Active Family history of hypertensi on: Mother, Grandparent(V17.49, Z82.49) Status:Active Family history of type 2 romulo betes mellitus: Grandparent(V18.0, Z83.3) Status:Active Family history of cervical c ancer: Grandparent(V16.49, Z80.49) Status:Active Family history of emphysema: Grandparent(V17.6, Z82.5) Status:Active Allergies: Mother, Grandpare nt Status:Active Unknown Family Member Name Dates Details Allergies: Mother, Grandpare nt Status:Active Family history of emphysema: Grandparent(V17.6, Z82.5) Status:Active Family history of cervical c ancer: Grandparent(V16.49, Z80.49) Status:Active Family history of type 2 romulo betes mellitus: Grandparent(V18.0, Z83.3) Status:Active Family history of hypertensi on: Mother, Grandparent(V17.49, Z82.49) Status:Active Family history of depression : Mother, Grandparent, Sister(V17.0, Z81.8) Status:Active Unknown Family Member Name Dates Details Family history of depression : Mother, Grandparent, Sister(V17.0, Z81.8) Status:Active Family history of hypertensi on: Mother, Grandparent(V17.49, Z82.49) Status:Active Family history of type 2 romulo betes mellitus: Grandparent(V18.0, Z83.3) Status:Active Family history of cervical c ancer: Grandparent(V16.49, Z80.49) Status:Active Family history of emphysema: Grandparent(V17.6, Z82.5) Status:Active Allergies: Mother, Grandpare nt Status:Active Unknown Family Member Name Dates Details Family history of depression : Mother, Grandparent, Sister(V17.0, Z81.8) Status:Active Family history of hypertensi on: Mother, Grandparent(V17.49, Z82.49) Status:Active Family history of type 2 romulo betes mellitus: Grandparent(V18.0, Z83.3) Status:Active Family history of cervical c ancer: Grandparent(V16.49, Z80.49) Status:Active Family history of emphysema: Grandparent(V17.6, Z82.5) Status:Active Allergies: Mother, Grandpare nt Status:Active Advance Directives Advance Directive Response Recorded Date/ Time Living Will No September 03, 2022 7:57pm Power of Men'S Garment Fitter No September 03 7:57pm Advance Directive Response Recorded Date/ Time Living Will No September 03, 2022 6:57pm Power of Men'S Garment Fitter No September 03 6:57pm Advance Directive Response Recorded Date/ Time Living Will No August 01, 2024 7:44am Do you have a Healthcare Power of Men'S Garment Fitter? No August 01, 2024 7:44am Living Will No September 03, 2022 7:57pm Do you have a Healthcare Power of Men'S Garment Fitter? No September 03, 2022 7:57pm Living Will No July 23, 12:07am Do you have a Healthcare Power of Men'S Garment Fitter? No July 23, 2024 12:07am History of Present Illness * Fabi Giraldo, [employer] - 08/06/2020 3:40 PM EST Chief Complaint Patient presents with Weight Gain MWL #1 Hypertension HPI: Patient here for Medical Weight Loss Goal of Medical Weight Loss: reports just needs help, is feeling depressed and hurting all the time, feels like garbage and just wants to get some of the weight off. Do you ever eat excessive amounts of food in a short period of time?: No On average, how often do you do this?: n/a Do you feel remorse or distressed over this eating pattern?: No Behavior change/strategies to overcome barriers: bored eater, also loves carbohydrates, loves breadand pasta. Lifetime weight/dieting history: has been heavy since childhood, feels like weight has been steadily increasing since this time, raised by grandmother who was a dietitian and feels like she has a healthy foundation but often grabs easy things like ravioli and mac and cheese, she has tried keto, intermittent fasting, cutting out junk, increased activity/exercise. Current eating pattern: eats 3 meals a day, sometimes will snack in the afternoon at work. Types of overeating (snacking, eating at night, large meals): usually overeats at dinner. Exercise habits: was doing aerobics four days a week, has tried walking about an hour a day in the past, currently no exercise habits. She has not used prescription medication for weight loss in the past. She denies heart disease She does have: Patient Active Problem List Diagnosis Date Noted Mixed anxiety and depressive disorder 08/06/2020 Low ferritin level 08/06/2020 Fibromyalgia 08/06/2020 Impaired glucose tolerance 08/06/2020 Edema of lower extremity 08/06/2020 Benign essential hypertension 08/06/2020 Degeneration of lumbar intervertebral disc 08/06/2020 Morbid obesity with body mass index of 50 or higher 08/06/2020 Past Medical History Includes Her Wt Readings from Last 3 Encounters: 08/06/20 (!) 170.6 kg (376 lb) and current Body mass index is 62.57 kg/m . Hypertension: patient reports is always elevated in the doctors office, her own PCP has questioned her on this and she has been keeping a blood pressure log, at home she is running 120s-130s/80s, denies chest pain, shortness of breath, leg swelling, frequent headaches. ROS: Constitutional: Negative for fatigue and fever. HENT: Negative for congestion, ear pain and sinus pain. Eyes: Negative for pain and redness. Respiratory: Negative for cough and shortness of breath. Cardiovascular: Negative for chest pain and palpitations. Gastrointestinal: Negative for abdominal pain, constipation, diarrhea, nausea and vomiting. Genitourinary: Negative for difficulty urinating and dysuria. Musculoskeletal: Negative for arthralgias and myalgias. Skin: Negative for rash and wound. Neurological: Negative for dizziness and headaches. All other systems reviewed and are negative. Past medical/family/social history: reviewed and updated, see documented in patient's chart. Physical Exam: BP (!) 155/101 Pulse 96 Ht 1.651 m (5' 5) Wt (!) 170.6 kg (376 lb) BMI 62.57 kg/m Smoking Status Never Smoker Body mass index is 62.57 kg/m . Physical Exam Assessment/Plan: 1. Benign essential hypertension Patient with white coat syndrome, pressures normal at home on current blood pressure medication, continue medication and encouraged weight loss to help with this, monitor pressures. 2. Class 3 severe obesity with serious comorbidity and body mass index (BMI) of 60.0 to 69.9 in adult, unspecified obesity type Start month #1 of phentermine, discussed at length diet and exercise, instructed to join Weight Watchers because patient needs structured plan or at minimum log diet on My Fitness Pal, start with 1/2tab until tolerating, increase water, discussed [place] and minimum weight loss goal of 18.5 pounds. - phentermine 37.5 MG tablet; Take 1 tablet by mouth every morning before breakfast. Dispense: 30 tablet; Refill: 0 Time spent: 45 (LVL3=20, LVL4=30, LVL5=40) On preparation for patient visit (reviewing previous chart, current medical records, previous history, exam, testing, procedures, and medications). Face to face encounter obtaining history from patient/family/caregiver, independent interpreting of results (tests, labs, procedures, imaging), and communicating and explaining results. Coordination of care, preparing and printing discharge instructions, and any educational material. Documenting clinical information in the electronic health record, reviewing OARRS as needed. Orders and follow up as documented in patient record; We reviewed diet, exercise and weight control; We reviewed medications and possible side effects. All questions were answered; Patient was advised to call with any questions or concerns. If symptoms worsen patient was advised to follow up in our office or the Emergency Dept. Benefits, Risks, Contraindications, and Complications of recommended treatments were explained the patient understands and agrees to proceed with plan. MADDIE Tuttle 08/07/2020 * Yaa Chinchilla - 08/06/2020 3:40 PM EST Nurse Note: Review of Systems Constitutional: Negative for fatigue and fever. HENT: Negative for congestion, ear pain and sinus pain. Eyes: Negative for pain and redness. Respiratory: Negative for cough and shortness of breath. Cardiovascular: Negative for chest pain and palpitations. Gastrointestinal: Negative for abdominal pain, constipation, diarrhea, nausea and vomiting. Genitourinary: Negative for difficulty urinating and dysuria. Musculoskeletal: Negative for arthralgias and myalgias. Skin: Negative for rash and wound. Neurological: Negative for dizziness and headaches. All other systems reviewed and are negative. documented in this encounter* Fabi Giraldo APRN-CNP - 09/04/2020 3:20 PM EDT Chief Complaint Patient presents with Weight Management Session Adipex #2 Fatigue HPI: Regarding Weight Gain: Yemi Jc is a 25 y.o. y.o. female who presents today with the complaint of obesity. She states that she has had gradual weight gain and would like to have assistance with weight loss. She has also been working on weight loss by: Diet changes: just started Weight Watchers and is really liking the point system, likes the structure, does the online version, has cut her portions in half, looking for things lower in points, helpsher stay accountable. Exercise: has been going on a lot of walks with her boyfriend, also plans on getting back to aerobics. Behavior change/strategies to overcome barriers: goal is to get back to aerobics work outs this month. She has used prescription medication for weight loss in the past. Including: Adipex, started last month. She denies heart disease She does have: see problem list Past Medical History Includes Her Wt Readings from Last 3 Encounters: 09/04/20 (!) 166.7 kg (367 lb 9.6 oz) 08/06/20 (!) 170.6 kg (376 lb) and current Body mass index is 61.17 kg/m . Reviewed today. Fatigue: this has gotten much better since losing weight, feels more motivated than she has in a long time about her weight because she has a plan, is feeling better both mentally and physically. ROS: Constitutional: Negative for fatigue and fever. HENT: Negative for congestion, ear pain and sore throat. Eyes: Negative for pain and redness. Respiratory: Negative for cough and shortness of breath. Cardiovascular: Negative for chest pain and palpitations. Gastrointestinal: Negative for abdominal pain, constipation, diarrhea, nausea and vomiting. Genitourinary: Negative for difficulty urinating and dysuria. Musculoskeletal: Negative for arthralgias and myalgias. Skin: Negative for rash and wound. Neurological: Negative for dizziness and headaches. All other systems reviewed and are negative. Past medical/family/social history: reviewed and updated, see documented in patient's chart. Physical Exam: BP 142/86 Pulse 90 Ht 1.651 m (5' 5) Wt (!) 166.7 kg (367 lb 9.6 oz) BMI 61.17 kg/m Smoking Status Never Smoker Body mass index is 61.17 kg/m . Physical Exam Constitutional: Appearance: She is morbidly obese. HENT: Head: Normocephalic and atraumatic. Eyes: Conjunctiva/sclera: Conjunctivae normal. Pupils: Pupils are equal, round, and reactive to light. Cardiovascular: Rate and Rhythm: Normal rate and regular rhythm. Heart sounds: Normal heart sounds. No murmur. Pulmonary: Effort: Pulmonary effort is normal. Breath sounds: Normal breath sounds. Musculoskeletal: Cervical back: Normal range of motion and neck supple. Skin: General: Skin is warm and dry. Neurological: Mental Status: She is alert and oriented to person, place, and time. Assessment/Plan: 1. Fatigue, unspecified type Improving, applauded weight loss efforts, encouraged to continue with dietary changes. 2. Class 3 severe obesity with serious comorbidity and body mass index (BMI) of 60.0 to 69.9 in adult, unspecified obesity type Start month #2 of phentermine, continue with Weight Watcher with goal to be more active this month. - phentermine 37.5 MG tablet; Take 1 tablet by mouth every morning before breakfast. Dispense: 30 tablet; Refill: 0 Orders and follow up as documented in patient record; We reviewed diet, exercise and weight control; We reviewed medications and possible side effects. All questions were answered; Patient was advised to call with any questions or concerns. If symptoms worsen patient was advised to follow up in our office or the Emergency Dept. Benefits, Risks, Contraindications, and Complications of recommended treatments were explained the patient understands and agrees to proceed with plan. MADDIE Tuttle 09/04/2020 * Natalie Castro - 09/04/2020 3:20 PM EDT Nurse Note: Review of Systems Constitutional: Negative for fatigue and fever. HENT: Negative for congestion, ear pain and sore throat. Eyes: Negative for pain and redness. Respiratory: Negative for cough and shortness of breath. Cardiovascular: Negative for chest pain and palpitations. Gastrointestinal: Negative for abdominal pain, constipation, diarrhea, nausea and vomiting. Genitourinary: Negative for difficulty urinating and dysuria. Musculoskeletal: Negative for arthralgias and myalgias. Skin: Negative for rash and wound. Neurological: Negative for dizziness and headaches. All other systems reviewed and are negative. documented in this encounter Assessments Diagnosis Benign essential hypertension- Primary Essential hypertension, benign Class 3 severe obesity with serious comorbidity and body mass index (BMI) of 60.0 to 69.9 in adult, unspecified obesity type Diagnosis Fatigue, unspecified type- Primary Class 3 severe obesity with serious comorbidity and body mass index (BMI) of 60.0 to 69.9 in adult, unspecified obesity type Reason for Referral Status Reason Specialty Diagnoses / Procedures Referre d By Contact Referred To Contact Denied Diagnoses Class 3 severe obesity with serious comorbidity and body mass index (BMI) of 60.0 to 69.9 in adult, unspecified obesity type Charlotte Farah MD [address] [place] [address] Specialty Diagnoses / Procedures Referred By Contac t Referred To Contact Diagnoses Class 3 severe obesity with serious comorbidity and body mass index (BMI) of 60.0 to 69.9 in adult, unspecified obesity type Fabi Giraldo APRN-CNP [address] [place] [address] Referral ID Status Reason Start Date Expiration Date Visits Re quested Visits Authorized [id number] Closed 1 1 Referral ID Status Reason Start Date Expiration Date Visits Re quested Visits Authorized [id number] Closed 1 1 Referral ID Status Reason Start Date Expiration Date Visits Re quested Visits Authorized [id number] Closed 1 1 Referral ID Status Reason Start Date Expiration Date Visits Re quested Visits Authorized [id number] Closed 1 1 Referral ID Status Reason Start Date Expiration Date Visits Re quested Visits Authorized [id number] Closed 1 1 Referral ID Status Reason Start Date Expiration Date Visits Re quested Visits Authorized [id number] Closed 1 1 Referral ID Status Reason Start Date Expiration Date Visits Re quested Visits Authorized [id number] Closed 1 1 Specialty Diagnoses / Procedures Referred By Contac t Referred To Contact Diagnoses BMI 50.0-59.9, adult Fabi Giraldo, CASKET LINER-METAL WEATHER STRIPPER [address] [place] [address] Referral ID Status Reason Start Date Expiration Date Visits Re quested Visits Authorized [id number] Closed 1 1 Referral ID Status Reason Start Date Expiration Date V isits Requested Visits Authorized [id number] Pending Review 1 1 Specialty Diagnoses / Procedures Referred By Neyda hensley Referred To Contact Diagnoses Low vitamin B12 level Ashlyn Gates, MARLON [address] [place] [address] Referral ID Status Reason Start Date Expiration Date V isits Requested Visits Authorized [id number] Pending Review 12/18/2023 12/17/2024 1 1 Chief Complaint * FUV for MRI done at 12-25-20 for nayely low back pain with radiation to nayely hips and buttocks; 08/05 today. * This is a 25-year-old female here for a follow-up appointment for chief complaint of low back and leg pain. She reports that since her last visit her symptoms have been better. She will still get thenumbness in the left leg but the right leg symptoms are much better. The back pain will come and go. She is using the Lodine, tizanidine, and gabapentin sporadically. Typically she will use them onlyonce a week. She is able to function. She is working on losing more weight. She denies new neurologic symptoms or issues with bladder or bowel control. * The patient's past medical, social, and family history along with medications and allergies are available and were reviewed. 6 MONTH F/U WITH LABS + MED CHECK. NO COMPLAINTS TODAY.* F/U FIBROMYALGIA, BILATERA HIPS INTO HER LEGS DOWN TO HER ANKLES SHE HAS THROBBING PAIN, SHE ALSO HAS NUMBNESS TO HER FEET SHE NOTICES MORE WHEN SHE IS AT WORK SITTING, SHE ALSO HAS DISCOMFORT WITH LAYING DOWN AT NIGHT AGGRAVATES HER HIPS AND SHE HAS TO REPOSITION,SHE IS NOT SLEEPING WELL, REP MOTION LIKE GETTING UP AND DOWN OUT OF HER WORK CHAIR CAUSES DISCOMFORT THROUGHOUT THE DAY, SHE IS STILL TAKING HER TIZANIDINE DIRECTED, SCORE 6/10 * This is a 26-year-old female here for a follow-up appointment for chief complaint of bilateral lower back hip and leg pain. She reports that following her last appointment she was doing well and was using the Lodine about twice a week and the gabapentin usually just in the morning. The Lodine was ef fective for the aching pain and the gabapentin was very effective for the tingling pain in the feet. She reports she ran out of both medications over the past couple months. She knew she could call but she wanted to try and make it into this appointment first. She is using the tizanidine sporadically at bedtime she reports it will help with the spasms. She does not use it all the time. She deniesnew neurologic symptoms or issues with bladder or bowel control. * The patient's past medical, social, and family history along with medications and allergies are available and were reviewed. 6 MONTH F/U LABS ([facility])6 MONTH F/U LABS ([facility])* FU meds reports today having pain across her lower back both sides that radiates into bilat gluteals and done bilat thighs mid way fees muscular rates 4/10,describes as sharp and aching she has numbness and tingling in her bilat hands and ankles into her bilat feet. her pain is worse with sitting.She will need a RF on tizanidine send to [facility]. * This is a 26-year-old female here for a follow-up appointment for chief complaint of low back and leg pain. She reports that since her last visit her symptoms have been persistent but manageable. Sheis rarely using the gabapentin or etodolac. She will use the tizanidine more regularly because it helps with the spasms. She denies side effects. She reports that she has been working out at the gym and is losing weight. She has known new neurologic symptoms or issues with bladder or bowel control. * The patient's past medical, social, and family history along with medications and allergies are available and were reviewed. PT HERE TODAY FOR 6 MO F/U LABS. PT HAS NO CONCERNS TODAYPatient is here for a 6 month follow up appointment. Patient states that she hasn't had much pain la tely. She states she gets an intermittent pain in her upper back. But it comes and goes and lower back and leg pain and muscle tightness seems to be resolved right now. Patient rates her pain a 0/10 today. JULIO CESAR score 14.* Patient is here for a 6 month follow up appointment. Patient states that she hasn't had much pain lately. She states she gets an intermittent pain in her upper back. But it comes and goes and lower back and leg pain and muscle tightness seems to be resolved right now. Patient rates her pain a 0/10 today. JULIO CESAR score 14. * This is a 27-year-old female here for a follow-up appointment for chief complaint of multifocal pain. She reports that since her last visit her symptoms have been minimal and almost absent. She has been able to come off the sonogram and is not using any medications for pain currently. She has maintain her home exercises. She denies numbness, tingling, weakness, or loss of bladder or bowel control. She is functioning at a good level. * The patient denies any additional numbness, tingling, weakness, or any loss of bladder or bowel control. The patient's past medical, social, and family history along with medications and allergies are available and were reviewed. Chief Complaint and Reason for Visit Chief Complaint CHEST CONGESTION/COU GH COVID TEST/BMS EMPLOYEE NVD Reason for Visit Acute bronchitis, un specified Influenza A Chief Complaint NVD INT LABS Chief Complaint Admit Date NEW ONSET AFIB WITH PERSISTENT RVR Febru maico 2024 9:07pm NEW ONSET AFIB WITH PERSISTENT RVR Febru maico2024 7:34am NEW ONSET AFIB WITH PERSISTENT RVR Febru maico 2024 3:11pm NEW ONSET AFIB WITH PERSISTENT RVR Febru maico2024 4:23pm NEW ONSET AFIB WITH PERSISTENT RVR Febru maico 2024 8:29am NEW ONSET AFIB WITH PERSISTENT RVR Febru maico 2024 12:20pm chest pain,sob,recent afib August 01 6:40am [facility] 07/24 AFIB August 02, 2024 8:58 am Jewel to do, see NN (per MMM) July 272024 12:59pm INT LAB ORDERS August 07, 2024 1:3 7pm ESTABLISH August 15, 2024 11: 24am Reason for Visit Admit Date Atrial fibrillation with rapid ventricul ar response July 23, 2024 4:23pm Leukocytosis July 23, 2024 4:23pm Morbid obesity with BMI of 60.0-69.9, ad ult July 23, 2024 4:23pm Palpitations July 23, 2024 4:23pm Acute anxiety July 23, 2024 4:23pm Adverse drug reaction July 23 4:23pm Dyspnea on exertion July 23, 2024 4:23pm Essential hypertension July 23 4:23pm Morbid obesity with BMI of 60.0-69.9, ad ult August 02, 2024 8:58am Atrial fibrillation August 02, 2024 8:58 am Additional Source Comments INFORMATION SOURCE (unrecogn ized section and content) DATE CREATED AUTHOR 11/21/2017 [facility] DATE CREATED AUTHOR AUTHOR'S ORGANIZ ATION 09/18/2018 [facility] DATE CREATED AUTHOR AUTHOR'S ORGANIZ ATION 07/13/2022 [facility] DATE CREATED AUTHOR AUTHOR'S ORGANIZ ATION 01/12/2023 [facility] DATE CREATED AUTHOR AUTHOR'S ORGANIZ ATION 01/14/2023 [facility] DATE CREATED AUTHOR AUTHOR'S ORGANIZ ATION 08/05/2024 [facility] DATE CREATED AUTHOR AUTHOR'S ORGANIZ ATION 08/09/2024 [facility] DATE CREATED AUTHOR AUTHOR'S ORGANIZ ATION 09/05/2024 [facility] DATE CREATED AUTHOR AUTHOR'S ORGANIZ ATION 10/26/2024 [facility] DATE CREATED AUTHOR AUTHOR'S ORGANIZ ATION 10/31/2024 [facility] Reason for Visit (unrecogniz ed section and content) Reason Comments Weight Gain MWL #1 Hypertension Status Reason Specialty Diagnoses / Procedures Referred By Contact Referred To Contact New Request Family Medicine Diagnoses Morbid obesity Osmar Vargas MD [address] [place] [address] Fabi Giraldo APRN-CNP [address] [place] [address] Reason Comments Weight Management Session Adipex #2 Fatigue Reason Comments Weight Gain Adipex #3 Fatigue Reason Comments Cough coughing up thick gr een mucus Sore Throat Reason Comments Urinary Frequency woke up today with p ain and urgency and has felt it all day and flank pain bilateral and pressure and now some blood in her urine has been seeing womans care for some problems and given medication amitriptlyne for interstitis Urinary Pain Reason Comments Weight Gain Fatigue Reason Comments Weight Management Session Reason Comments Weight Management Session Refills needed for qsymia Reason Comments Weight Gain Patient looking into qysymia Fatigue Reason Comments Weight Gain Fatigue Reason Comments Weight Management Session Adipex #2 Hypertension Reason Comments Weight Management Session Adipex #3 Reason Comments Weight Management Session Patient was wa nting an increase in medication. Hypertension Reason Comments Weight Management Session Fatigue Reason Comments Weight Management Session Patient states this past month has been hard, reports to be stuck at current weight. Patient states she does not think medication is working and would like to discuss other options. Reason Comments Weight Management Session Fatigue Reason Comments Weight Management Session Reason Comments Weight Management Session Binge eating d isorder Reason Comments Follow-up 6 MO F/U WITH LABS. NO COMPLAINTS Reason Comments Eating Disorder Fatigue Reason Comments Follow-up 6 MONTH FOLLOW UP + LABS @ [facility] SCANNED IN MEDIA. PT WANTS TO SEE ABOUT CHANGING HER DEPRESSION/ ANXIETY MEDS. FEELS LIKE HER SEX DRIVE IS DECREASING Reason Comments URI CHEST CONGESTION, CO UGHING UP BROWN MUCUS , SOB, X 2 DAYS DAYQUIL NO RELIEF Reason Comments Fatigue Eating Disorder Reason Comments Weight Management Session Discuss Vyvjosh e, was having rapid heart rate while taking medication. Per [employer] message Dr. Farah advised to hold medication and make appointment to discuss Fatigue Reason Comments Follow-up 6 MO F/U LABS-[facility]; NO COMPLAINTS TODAY Specialty Diagnoses / Procedures Referred By Contdanya t Referred To Contact Diagnoses Low vitamin B12 level Ashlyn Gates, PAEulaliaC [address] [place] [address] Referral ID Status Reason Start Date Expiration Date V eveline Requested Visits Authorized [id number] Pending Review 12/18/2023 12/17/2024 1 1 Reason Comments Eating Disorder Reason Comments Follow-up 3 MO F/U WITH LABS N O COMPLAINTS Reason Comments Hospital Follow-up HOSPITAL DISCHARGE [facility] - PALPITATIONS, A.FIB (NEW ONSET) PATIENT CONTINUES TO HAVE HEART PALPITATIONS - APPOINTMENT SCHEDULED WITH [facility] 08/14/24. Reason Comments Follow-up SLEEP STUDY DONE LAS T WEEK Reason Comments Follow-up Discuss cpap+ breath ing Care Teams (unrecognized sec tion and content) Manager Reporting Relationship Specialty Start Date End Date Ashlyn Gates PA [address] [place] [address] PCP - General Physician Transport Corps Officer 06/18/20 Manager Reporting Relationship Specialty Start Date End Date Ashlyn Gates PA [address] [place] [address] PCP - General Physician Transport [employer] Officer 06/18/20 Manager Reporting Relationship Specialty Start Date End Date Ashlyn Gates PA [address] [place] [address] PCP - General Physician Transport [employer] Officer 06/18/20 Manager Reporting Relationship Specialty Start Date End Date Ashlyn Gates PA [address] [place] [address] PCP - General Physician Transport Corps Officer 06/18/20 Manager Reporting Relationship Specialty Start Date End Date Ashlyn Gates PA [address] [place] [address] PCP - General Physician Transport Corps Officer 06/18/20 Manager Reporting Relationship Specialty Start Date End Date Ashlyn Gates PA [address] [place] [address] PCP - General Physician Transport Corps Officer 06/18/20 Manager Reporting Relationship Specialty Start Date End Date Ashlyn Gates PA [address] [place] [address] PCP - General Physician Transport Corps Officer 06/18/20 Manager Reporting Relationship Specialty Start Date End Date Ashlyn Gates PA [address] [place] [address] PCP - General Physician Transport Corps Officer 06/18/20 Manager Reporting Relationship Specialty Start Date End Date Ashlyn Gates PA [address] [place] [address] PCP - General Physician Transport Corps Officer 06/18/20 Manager Reporting Relationship Specialty Start Date End Date Ashlyn Gates PA [address] [place] [address] PCP - General Physician Transport Corps Officer 06/18/20 Manager Reporting Relationship Specialty Start Date End Date Ashlyn Gates PA [address] [place] [address] PCP - General Physician Transport Corps Officer 06/18/20 Manager Reporting Relationship Specialty Start Date End Date Ashlyn Gates PA [address] [place] [address] PCP - General Physician Transport Corps Officer 06/18/20 Manager Reporting Relationship Specialty Start Date End Date Ashlyn Gates PA [address] [place] [address] PCP - General Physician Transport [employer] Officer 06/18/20 Manager Reporting Relationship Specialty Start Date End Date Ashlyn Gates PA [address] [place] [address] PCP - General Physician Transport [employer] Officer 06/18/20 Manager Reporting Relationship Specialty Start Date End Date Ashlyn Gates PA [address] [place] [address] PCP - General Physician Transport [employer] Officer 06/18/20 Team Status: Active Member Role Status Dates JOHN Gutierrez Primary Care Provider Active Team Status: Inactive Member Role Status Dates JOHN Gutierrez Primary Care Provider, Referr ing Provider Active Howie LOPEZ PA Attending Provider Active Team Status: Inactive Member Role Status Dates JOHN Gutierrez Primary Care Provider Active Dr. Racheal Hernandez MD Emergency Provider Active Team Status: Inactive Member Role Status Dates JOHN Guteirrez Primary Care Provider Active Dr. Racheal Hernandez MD Attending Provider, Emergency Provider Active Team Status: Inactive Member Role Status Dates JOHN Gutierrez Primary Care Provider Active Dr. Mark Schroeder DO Attending Provider, Referring Provider Active Manager Reporting Relationship Specialty Start Date End Date Ashlyn Gates PA-C [address] [place] [address] PCP - General 01/29/19 Manager Reporting Relationship Specialty Start Date End Date Ashlyn Gates PA [address] [place] [address] PCP - General Physician Transport Corps Officer 06/18/20 Manager Reporting Relationship Specialty Start Date End Date Ashlyn Gates PA [address] [place] [address] PCP - General Physician Transport [employer] Officer 06/18/20 Manager Reporting Relationship Specialty Start Date End Date Ashlyn Gates PA-C [address] [facility] [place] [address] PCP - General 01/29/19 Team Status: Inactive Member Role Status Dates JOHN Gutierrez Primary Care Pr ovider, Attending Provider, Referring Provider Active Manager Reporting Relationship Specialty Start Date End Date Ashlyn Gates PA [address] [place] [address] PCP - General Physician Transport Corps Officer 06/18/20 Manager Reporting Relationship Specialty Start Date End Date Ashlyn Gates PA-C [address] [place] [address] PCP - General 01/29/19 Manager Reporting Relationship Specialty Start Date End Date Ashlyn Gates PA [address] [place] [address] PCP - General Physician Transport Corps Officer 06/18/20 Manager Reporting Relationship Specialty Start Date End Date Ashlyn Gates PA [address] [place] [address] PCP - General Physician Transport [employer] Officer 06/18/20 Manager Reporting Relationship Specialty Start Date End Date Ashlyn Gates PA-C [address] [place] [address] PCP - General 01/29/19 Manager Reporting Relationship Specialty Start Date End Date Ashlyn Gates PA-C [address] [place] [address] PCP - General 01/29/19 Manager Reporting Relationship Specialty Start Date End Date Ashlyn Gates PA-C [address] [place] [address] PCP - General 01/29/19 Miguelina Ramos CMA Supervisor Dimension WarehouseGlass Edger 07/25/24 Manager Reporting Relationship Specialty Start Date End Date Ashlyn Gates PA [address] [place] [address] PCP - General Physician Transport Corps Officer 06/18/20 Team Status: Inactive Member Role Status Dates JOHN Gutierrez Primary Care Provider Active Start: June 17, 2024 End: June 17, 2024 Ashlyn [place] PA, PA Attending Provider Active Start: June 17, 2024 End: June 17, 2024 Ashlyn Gates PA, PA Referring Provider Active Start: June 17, 2024 End: June 17, 2024 Team Status: Active Member Role Status Dates Ashlyn Gates PA, PA Primary Care Provider Active Start: July 22, 2024 Dr. Eric Figueroa DO Emergency Provider Active Start: July 22, 2024 Dr. Wilfrid Hernandez DO Admit Provider Active Start: July 22, 2024 Dr. Wilfrid Hernandez DO Attending Provider Active Start: July 22, 2024 Dr. Wilfrid Hernandez DO Other Provider Active Start: July 22, 2024 Team Status: Active Member Role Status Dates Ashlyn Gates PA, PA Primary Care Provider Active Start: July 23, 2024 Dr. Eric Figueroa DO Emergency Provider Active Start: July 23, 2024 Dr. Wilfrid Hernandez DO Admit Provider Active Start: July 23, 2024 Dr. Wilfrid Hernandez DO Other Provider Active Start: July 23, 2024 Dr. Marlin Sidhu MD Other Provider Active Star t: July 23, 2024 Dr. Danial Hernández MD Attending Provider Active Start: July 23, 2024 Team Status: Active Member Role Status Dates Ashlyn Gates PA, PA Primary Care Provider Active Start: July 23, 2024 Dr. Joselin Craig MD Attending Provider Activ e Start: July 23, 2024 Team Status: Active Member Role Status Dates Ashlyn Gates PA, PA Primary Care Provider Active Start: July 23, 2024 Dr. Eric Figueroa DO Emergency Provider Active Start: July 23, 2024 Dr. Wilfrid Hernandez DO Admit Provider Active Start: July 23, 2024 Dr. Wilfrid Hernandez DO Other Provider Active Start: July 23, 2024 Dr. Marlin Sidhu MD Attending Provider Active Start: July 23, 2024 Dr. Marlin Sidhu MD Other Provider Active Star t: July 23, 2024 Dr. Mikaela Powell MD Other Provider Active Start: July 23, 2024 Dr. Josef Hall MD Other Provider Active St art: July 23, 2024 Dr. Marcelino Márquez MD Other Provider Active Star t: July 23, 2024 Dr. Emir Braswell MD Other Provider Active Sta rt: July 23, 2024 Dr. Lan Johansen MD Other Provider Active Start : July 23, 2024 Dr. Ketan Russell MD Other Provider Active Star t: July 23, 2024 Dr. Danial Hernández MD Other Provider Active St art: July 23, 2024 Dr. Joselin Craig MD Other Provider Active Start: July 23, 2024 Dr. Chucky Thakkar MD Other Provider Active S tart: July 23, 2024 Dr. Jeffrey Cross MD Other Provider Active Start: July 23, 2024 Heather Vizcaino CLOTH STOCK SORTER, CLOTH STOCK SORTER-C Other Provider Active Start : July 23, 2024 Virginia Peña PA, PA Other Provider Active Start: July 23, 2024 JOHN Mccall Other Provider Active Start: July 23, 2024 Team Status: Inactive Member Role Status Dates Ashlyn LOPEZ, PA Primary Care Provider Active Start: July 23, 2024 End: July 24, 2024 Dr. Eric Figueroa , Emergency Provider Active Start: July 23, 2024 End: July 24, 2024 Dr. Wilfrid Hernandez DO Admit Provider Active Start: July 23, 2024 End: July 24, 2024 Dr. Wilfrid Hernandez DO Other Provider Active Start: July 23, 2024 End: July 24, 2024 Dr. Mikaela Powell MD Other Provider Active Start: July 23, 2024 End: July 24, 2024 Dr. Josef Hall MD Other Provider Active St art: July 23, 2024 End: July 24, 2024 Dr. Marcelino Márquez MD Other Provider Active Star t: July 23, 2024 End: July 24, 2024 Dr. Emir Braswell MD Other Provider Active Sta rt: July 23, 2024 End: July 24, 2024 Dr. Lan Johansen MD Other Provider Active Start : July 23, 2024 End: July 24, 2024 Dr. Ketan Russell MD Other Provider Active Star t: July 23, 2024 End: July 24, 2024 Dr. Danial Hernández MD Other Provider Active St art: July 23, 2024 End: July 24, 2024 Dr. Joselin Craig MD Other Provider Active Start: July 23, 2024 End: July 24, 2024 Dr. Chucky Thakkar MD Other Provider Active S tart: July 23, 2024 End: July 24, 2024 Dr. Jeffrey Cross MD Other Provider Active Start: July 23, 2024 End: July 24, 2024 Heather Vizcaino [employer], [employer] Other Provider Active Start : July 23, 2024 End: July 24, 2024 Virginia Peña PA, PA Other Provider Active Start: July 23, 2024 End: July 24, 2024 JOHN Mccall Other Provider Active Start: July 23, 2024 End: July 24, 2024 Dr. Nirmala Arenas DO Attending Provider Active S tart: July 23, 2024 End: July 24, 2024 Dr. Marlin Sidhu MD Other Provider Active Star t: July 23, 2024 End: July 24, 2024 Team Status: Active Member Role Status Dates Ashlyn LOPEZ, PA Primary Care Provider Active Start: July 24, 2024 Dr. Eric Figueroa DO Emergency Provider Active Start: July 24, 2024 Dr. Wilfrid Hernandez DO Admit Provider Active Start: July 24, 2024 Dr. Wilfrid Hernandez DO Other Provider Active Start: July 24, 2024 Dr. Mikaela Powell MD Other Provider Active Start: July 24, 2024 Dr. Josef Hall MD Other Provider Active St art: July 24, 2024 Dr. Marcelino Márquez MD Other Provider Active Star t: July 24, 2024 Dr. Emir Braswell MD Other Provider Active Sta rt: July 24, 2024 Dr. Lan Johansen MD Other Provider Active Start : July 24, 2024 Dr. Ketan Russell MD Other Provider Active Star t: July 24, 2024 Dr. Danial Hernández MD Attending Provider Active Start: July 24, 2024 Dr. Danial Hernández MD Other Provider Active St art: July 24, 2024 Dr. Joselin Craig MD Other Provider Active Start: July 24, 2024 Dr. Chucky Thakkar MD Other Provider Active S tart: July 24, 2024 Dr. Jeffrey Cross MD Other Provider Active Start: July 24, 2024 Heather Vizcaino [employer], [employer] Other Provider Active Start : July 24, 2024 Virginia Peña PA, PA Other Provider Active Start: July 24, 2024 JOHN Mccall Other Provider Active Start: July 24, 2024 Dr. Nirmala Arenas DO Other Provider Active Start : July 24, 2024 Dr. Marlin Sidhu MD Other Provider Active Star t: July 24, 2024 Team Status: Active Member Role Status Dates Ashlyn LOPEZ, PA Primary Care Provider Active Start: July 24, 2024 Dr. Eric Figueroa DO Emergency Provider Active Start: July 24, 2024 Dr. Wilfrid Hernandez DO Admit Provider Active Start: July 24, 2024 Dr. Wilfrid Hernandez DO Other Provider Active Start: July 24, 2024 Dr. Mikaela Powell MD Other Provider Active Start: July 24, 2024 Dr. Josef Hall MD Other Provider Active St art: July 24, 2024 Dr. Marcelino Márquez MD Other Provider Active Star t: July 24, 2024 Dr. Emir Braswell MD Other Provider Active Sta rt: July 24, 2024 Dr. Lan Johansen MD Other Provider Active Start : July 24, 2024 Dr. Ketan Russell MD Other Provider Active Star t: July 24, 2024 Dr. Danial Hernández MD Other Provider Active St art: July 24, 2024 Dr. Joselin Craig MD Other Provider Active Start: July 24, 2024 Dr. Chucky Thakkar MD Other Provider Active S tart: July 24, 2024 Dr. Jeffrey Cross MD Other Provider Active Start: July 24, 2024 Heather Vizcaino [employer], [employer] Other Provider Active Start : July 24, 2024 Virginia LOPEZ, PA Other Provider Active Start: July 24, 2024 JOHN Mccall Other Provider Active Start: July 24, 2024 Dr. Nirmala Arenas DO Attending Provider Active S tart: July 24, 2024 Dr. Nirmala Arenas DO Other Provider Active Start : July 24, 2024 Dr. Marlin Sidhu MD Other Provider Active Star t: July 24, 2024 Team Status: Inactive Member Role Status Dates Ashlyn Gates PA, PA Primary Care Provider Active Start: August 01, 2024 End: August 01, 2024 Dr. Jose Ramon Castro DO Attending Provider Active Start: August 01, 2024 End: August 01, 2024 Dr. Jose Ramon Castro DO Emergency Provider Active Start: August 01, 2024 End: August 01, 2024 Team Status: Inactive Member Role Status Dates Ashlyn Gates PA, PA Primary Care Provider Active Start: August 02, 2024 End: August 02, 2024 Ashlyn Gates PA, PA Referring Provider Active Start: August 02, 2024 End: August 02, 2024 Dr. Danial Hernández MD Attending Provider Active Start: August 02, 2024 End: August 02, 2024 Team Status: Inactive Member Role Status Dates Ashlyn Gates PA, PA Primary Care Provider Active Start: August 07, 2024 End: August 07, 2024 Ashlyn Gates PA, PA Referring Provider Active Start: August 07, 2024 End: August 07, 2024 Dr. Danial Hernández MD Attending Provider Active Start: August 07, 2024 End: August 07, 2024 Team Status: Inactive Member Role Status Dates Ashlny Gates PA, PA Primary Care Provider Active Start: August 07, 2024 End: August 07, 2024 Dr. Danial Hernández MD Attending Provider Active Start: August 07, 2024 End: August 07, 2024 Dr. Danial Hernández MD Referring Provider Active Start: August 07, 2024 End: August 07, 2024 Team Status: Inactive Member Role Status Dates Ashlyn Gates PA, PA Primary Care Provider Active Start: August 15, 2024 End: August 15, 2024 Ashlyn Gates PA, PA Referring Provider Active Start: August 15, 2024 End: August 15, 2024 Dr. Chucky Thakkar MD Attending Provider Active Start: August 15, 2024 End: August 15, 2024 Manager Reporting Relationship Specialty Start Date End Date Ashlyn Gates PA-C [address] [place] [address] PCP - General Internal Medicine 09/03/24 Manager Reporting Relationship Specialty Start Date End Date Ashlyn Gates PA-C [address] [place] [address] PCP - General Internal Medicine 09/03/24 <item> Privacy Markings (unrecogniz ed section and content) Section Author: Sweta Freeman PROHIBITION ON REDISCLOSURE OF CONFIDENTIAL INFORMATION This notice accompanies a disclosure of information concerning a client made to you with the consent of such client. Goals (unrecognized section and content) Goals may be documented in a n alternate sectionGoals may be documented in an alternate sectionGoals may be documented in an alternate sectionGoals may be documented in an alternate section FOR RECORDS PERTAINING TO PATIENTS WHO ARE OR HAVE BEEN ENROLLED IN A CHEMICAL DEPENDENCY/SUBSTANCEABUSE PROGRAM, SOME INFORMATION MAY BE OMITTED. This clinical summary was aggregated from multiple sources. Caution should be exercised in using it in the provision of clinical care. This summary normalizes information from multiple sources, and as a consequence, information in this document may materially change the coding, format and clinical context of patient data. In addition, data may be omitted in some cases. CLINICAL DECISIONS SHOULD BE BASED ON THE PRIMARY CLINICAL RECORDS. [email or web address] provides no warranty or guarantee of the accuracy or completeness of information in this document.
[2025-01-24 08:09] LABS: Hematocrit 37.4 % (37-47); Hemoglobin 12.3 g/dL (12.0-15.0); Immature Granulocytes Count 0.020 X10^3/uL (0.0-0.0); Mean Corp Hgb Conc 32.9 g/dL (32-36); Mean Corpuscular Volume 80.1 fL (81-99); Mean Platelet Vol. 11.4 fl (6.2-12.0); NRBC Flagged by Analyzer 0 % (0-5); Platelet Count 321 K/mm3 (150-450); RBC Distribution Width CV 13.7 % (11.6-14.6); RBC Distribution Width SD 39.4 fl (35.1-43.9); Red Blood Count 4.67 M/mm3 (4.2-5.4); White Blood Count 9.2 K/mm3 (4.4-11.0)
[2025-01-24 09:00] LABS: AST(SGOT) 13 U/L (<=31); Alanine Aminotransfer ALT/SGPT 13 U/L (<=34); Albumin, Serum 3.8 g/dL (3.5-5.0); Alkaline Phosphatase 94 U/L (35-104); Anion Gap 11 (5-15); BUN 8 mg/dL (4-19); BUN/Creat Ratio 13.2 RATIO (10-20); Calcium,Total 8.9 mg/dL (7.6-11.0); Carbon Dioxide 23.5 mmol/L (21.0-32.0); Chloride 104 mmol/L (98-108); Ferritin 62 ng/mL (22-378); Globulin 3.2 g/dL (2.2-4.2); Glucose 138 mg/dL (70-99); Iron 55 ug/dL (50-170); Iron Binding Capacity,Total 377 ug/dL (250-450); Iron Binding Capacity,Unsat 322 ug/dL (228-428); Magnesium 1.9 mg/dL (1.5-2.2); Potassium 4.3 mmol/L (3.3-5.1); Vitamin B12 788 pg/mL (180-914)
[2025-01-24 09:16] LABS: Cholesterol 221 mg/dL (<=200); Low Density Lipoprotein Calc. 143 mg/dL; Triglycerides 161 mg/dL; Very Low Density Lipoprotein 32 mg/dL (5-40); cholesterol:hdl ratio screen 4.84
== END | disposition home or self-care (01) ==
LOC: LAB 07:13
PROVIDERS: PCP Physician Assistant Medical; Referring Provider Physician Assistant Medical; Visit Provider Physician Assistant Medical
DX: I10 Essential (primary) hypertension (principal); R73.02 Impaired glucose tolerance (oral); E78.00 Pure hypercholesterolemia, unspecified; R79.0 Abnormal level of blood mineral
CPT/HCPCS: 36415; 80053; 80061; 82607; 82728; 83036; 83540; 83550; 83735; 84439; 84443; 85025

== ENCOUNTER → 2025-02-19 | Outpatient (CLI) | payer OTHER, SELFPAY ==
--- OUTSIDE RECORDS SUMMARY | 2025-02-19 20:02 | XMS RPT_ITS | CCD ---
Author Organization [facility] Care Team Providers Care Health And Safety Representative Name Role Phone Ree Christopher Admitting Unavailable [...] Christopher Unavailable Unavailable Yajaira, Ashlyn Unavailable Unavailable [place], Ashlyn B Unavailable Unavailable Yajaira, Ashlyn B Unavailable Unavailable Zumbar, Christopher Unavailable Unavailable [place], Ashlyn Unavailable Unavailable Yajaira, Ashlyn B Unavailable [...] LOPEZ Ashlyn Primary Care Provider Yajaira, Ms. [facility] Unav ailable ZChristopher morrison Attending Unavailable Yajaira, Ms. [facility] Unav ailable Kamenik, Ms. Quiles Carmen Attending Faithvai labpetr Meyer, Kb Morales Referring Unavai lable [place], Ms. [facility] Unav ailable Kamxochiltk, Kb Morales Attending Unavai labpetr Gates, Ms. [facility] Unav ailable ZChristopher morrison Attending Unavailable Yajaira, Ms. [facility] Unav ailable Christopher Keenan Attending Unavailable Ashlyn Soto Primary Care Provider Ashlyn Gates PA-C Primary Care Provider Miguelina Ramos CMA Unavailable Unavailable [facility] UnavailHEATHER Spencer Attending Unavailable [facility] Care Unavailable FABI GIRALDO Referring Unavailable FABI GIRALDO Attending Unavailable SELF, SELF Referring Unavailable [facility] Care Unavailable FABI GIRALDO Attending Unavailable CHARLOTTE FARAH Referring Unavailable [facility] Care Unavailable FABI GIRALDO Attending Unavailable CHARLOTTE FARAH Referring Unavailable [facility] Care Unavailable FABI GIRALDO [facility]ending [facility] FABI GIRALDO Attending Unavailable FABI GIRALDO Referring Unavailable [facility] Primary Care Unavailable FABI GIRALDO Referring Unavailable [...] America GORDON, Dr. Murphy Other Provider Carrillo WEATHERIZATION DIRECTOR-C, Heather Lebron Other Provider Virginia Herman Other Provider [facility] Other Provider Dr. Nirmala Arenas DO Attending Provider Dr. Nirmala Arenas DO Other Provider Dr. Jose Ramon Castro DO Attending Provider Dr. Jose Ramon Castro DO Emergency Provider Betty GORDON, Dr. Barrow Referring Provider Bijan GORDON, Dr. Locke Attending Provider DESIREE SIN Referring Unavailable YAJAIRA, ASHLYN B Primary Care Unavailable [place] PAEulaliaC, Ashlyn B Primary Care Provider YAJARIA, ASHLYN B Attending Unavailable YAJAIRA, ASHLYN B [...] Unavailable YAJAIRA, ASHLYN B Primary Care Unavailable Yajaira PA, Ashlyn Primary Care Physician Ashlyn Soto Attending Physician Yajaira LOPEZ, Ashlyn Referring Provider Yajaira LOPEZ, Ashlyn Primary Care UnavailWilfrid Leblanc Consulting Unavailable Wilfrid Hernandez Admitting Unavailable Marlin Sidhu Attending Unavailable Mikaela Powell Consulting Unavailable Josef Hall Consulting Unavailable Willi, Marcelino Consulting Unavailable Emir Braswell Consulting Unavailable Haily, Lan Consulting Unavailable Ketan Russell Consulting Unavailable Danial Hernández Consulting Unavailable Joselin Craig Consulting Unavailzonia e Chucky Thakkar Consulting Unavailable Bianka Crossatore Consulting Unavailable Heather Vizcaino NP Consulting Unavailable Virginia Herman Consulting Unavail able [facility] Consulting Unavailable Marlin Sidhu Consulting Unavailable Ashlyn Soto Referring Unavailabl e Yajaira LOPEZ, Ashlyn Primary Care UnavailMelanie Somers NP Attending Unavailable Chucky Thakkar Attending Unavailable Ashlyn Soto Referring Unavailabl e Yajaira LOPEZ, Ashlyn Primary Care UnavailDanial Rojas Attending Unavailable Ashlyn Soto Referring Unavailabl e Yajaira LOPEZ, Ashlyn Primary Care UnavailDanial Rojas Attending Unavailable Ashlyn Soto Referring Unavailabl e Yajaira LOPEZ, [facility] Unavailabl e Yajaira LOPEZ, [facility] Unavailabl e Joselin Craig Attending Unavailzonia e Yajaira LOPEZ, [facility] Care Unavailzonia e Wilfrid Hernandez Admitting Unavailable Wilfrid Hernandez Consulting Unavailable Nirmala Arenas Attending Unavailable Amro, Ahmed Consulting Unavailable Mostafa, Josef Consulting Unavailable Willi, Marcelino Consulting Unavailable Braswell, Emir Consulting Unavailable Haily, Aln Consulting Unavailable Belal, Farouk Consulting Unavailable Danial Hernández Consulting Unavailable Nagajothi, Nagapradee Consulting Unavailabl e Satti, Chucky Consulting Unavailable America, Jeffrey Consulting Unavailable Carrillo WEATHERIZATION DIRECTOR, Heather Lebron Consulting Unavailable Virginia Herman Consulting Unavail able [facility] Consulting Unavailable Marlin Sidhu Consulting Unavailable Nirmala Arenas Consulting Unavailable Yajaira LOPEZ, Ashlyn Attending Unavailabl e Yajaira LOPEZ, Ashlyn Referring Unavailabl e Yajaira LOPEZ, [facility] Care UnavailDanial Rojas Referring Unavailable Danial Hernández Attending Unavailable Yajaira LOPEZ, [facility] Care Unavailabl e Yajaira LOPEZ, [facility] Care Unavailzonia e Wilfrid Hernandez Consulting Unavailable Wilfrid Hernandez Admitting Unavailable Nirmala Arenas Attending Unavailable Amro, Ahmed Consulting Unavailable Mostafa, Josef Consulting Unavailable Willi, Marcelino Consulting Unavailable Ofe Braswellndan Consulting Unavailable Haily, Afton Consulting Unavailable Belal, Farouk Consulting Unavailable Danial Hernández Consulting Unavailable Williacorinne, Nagapradee Consulting Unavailabl e Satti, Chucky Consulting Unavailable America, Jeffrey Consulting Unavailable Carrillo WEATHERIZATION DIRECTOR, Heather Lebron Consulting Unavailable Virginia Herman Consulting Unavail able [facility] Consulting Unavailable Marlin Sidhu Consulting Unavailable Senthil Caban V Referring Unavailable Yajaira LOPEZ, [facility] Unavailabl e Senthil Caban V Attending Unavailable Danial Hernández Attending Unavailable Yajaira LOPEZ, [facility] Care Unavailabl e Yajaira LOPEZ, [facility] Care UnavailJose Ramon Newton Attending Unavailable Yajaira LOPEZ, [facility] Unavailabl e Yajaira LOPEZAshlyn Attending Ashlyn Talley Referring Danial Ewing Attending Unavailable Wilfrid Hernandez Attending Danial Alcantara Attending Unavailable Allergies Allergy Classification Reported Allergen(s) Allergy Type Date of Onset Reaction(s) Facility NSAIDs (7 sources) Diclofenac; Translations: [diclofenac] Drug Allergy 08-06-2020 Rash [facility] (20 sources) Diclofenac; Translations: [diclofenac] Drug Allergy 08-06-2020 Rash, Unknown [facility] Repository Medications Current Medications Medication Drug Class(es) Dates Sig (Normalized) Sig (Original) [id number] 200 actuat albuterol 0.09 mg/actuat metered dose [...] before use. apixaban 5 mg oral tablet (8 sources) Factor Xa Inhibitor Start: 07-24-2024 take 1 tablet by mouth every twelve hours Eliquis 5 mg tablet Take 1 tablet (5 mg) by mouth every 12 hours. 07/24/2024 Active Start: 07-24-2024 End: 09-23-2024 take 1 tablet by mouth twice daily azithromycin 250 mg oral tablet (2 sources) [...] mg/ml / clotrimazole 10 mg/ml topical cream (19 sources) Azole Antifungal, Corticosteroid Start: 07-22-2024 Start: 07-02-2024 clotrimazole-b etamethasone (Lotrisone) cream Indications: [...] 30 mg oral tablet (20 sources) Start: 07-30-2024 End: 07-30-2025 take 1 tablet by mouth three times daily as needed for anxiety busPIRone (Buspar) 5 mg tablet Indications: Anxiety Take 1 tablet (5 mg) by mouth 3 times a day as needed (anxiety). 40 tablet 5 07/30/2024 09/11/2024 Discontinued (Therapy completed) Start: 03-04-2019 take 1 tablet by marv th twice daily in the evening busPIRone (Buspar) 30 mg tablet Indications: Anxiety Take 1 tablet (30 mg) by mouth 2 times a day. 60 tablet 5 01/25/2025 3:45 PM EDT 08/26/2024 Active Start: 03-04-2019 take 1 tablet by [...] daily. 10/20/2020 12/18/2023 Discontinued (Therapy completed) Start: 10-20-2020 drospirenone-e thinyl estradioL (Klaus, Gianvi) 3-0.02 mg tablet Take 1 tablet by mouth once daily. 0 10/20/2020 Active Start: 10-20-2020 End: 11-03-2020 take 1 tablet by mouth once daily KLAUS 3-0.02 MG tablet take 1 tablet by oral route once daily for 28 days 0 10/20/2020 11/03/2020 Discontinued (Duplicate (suppress cancel msg)) Ethinyl Estradiol / Ferrous fumarate / Norethindrone (5 sources) Estrogen Start: 05-09-2024 take 1 tablet [...] 1 TABLET DAILY. Quantity: 1 Refills: 11 Ashlyn Gates PA-C Start : 04-Mar-2019 Active 28 Tablet Pack Start: 03-04-2019 Ortho Tri-Cycl en Lo 0.18/0.215/0.25 MG-25 MCG Oral Tablet Refills: 0 DO Start : 04-Mar-2019 Active 28 Tablet Pack Start: 03-04-2019 Ortho Tri-Cycl en Lo 0.18/0.215/0.25 MG-25 MCG Oral Tablet Refills: 0 Start : 04-Mar-2019 Active 28 Tablet Pack furosemide 40 mg oral tablet (7 sources) Loop Diuretic Start: 08-02-2024 End: 09-23-2024 hydrOXYzine hydrochloride 25 mg oral tablet (2 sources) Antihistamine Start: 10-30-2024 hydrOXYzine HCL (Atarax) 25 mg tablet Indications: JESSICA (generalized anxiety disorder) Take 1 tablet (25 mg) by mouth as needed at bedtime for anxiety (anxiety /insomnia). 30 tablet 2 01/25/2025 3:45 PM EDT 10/30/2024 Active metoprolol tartrate 100 mg oral tablet (8 sources) beta-Adrenergic Isabel Start: 07-24-2024 take 1 tablet by mouth every twelve hours metoprolol tartrate (Lopressor) 100 mg tablet Take 1 tablet (100 mg) by mouth every 12 hours. 07/24/2024 Active Start: 07-24-2024 End: 09-23-2024 take 1 tablet by mouth twice daily omeprazole 20 mg delayed release oral capsule (20 sources) Proton Pump Inhibitor Start: 01-08-2024 End: 01-29-2025 take 1 capsule by mouth twice daily Start: 12-08-2022 take 1 capsule by mo [...] once daily with breakfast. 30 tablet 5 01/25/2025 3:45 PM EDT 09/11/2024 Active Start: 05-23-2023 End: 09-11-2024 take 1 tablet by mouth once daily Start: 05-23-2023 End: 12-18-2023 take 1 tablet by mouth once daily vilazodone (Viibryd) 10 mg tablet Indications: Depression, major, single episode, mild (CMS-HCC) , JESSICA (generalized anxiety disorder) Take 1 tablet (10 mg) by mouth once daily. 7 tablet 05/23/2023 12/18/2023 Discontinued (Med List Cleanup) Start: 03-04-2019 take 1 tablet by marv th once daily Viibryd 40 MG Oral Tablet TAKE TABLET Daily Quantity: 30 Refills: 5 Ashlyn Gates PA-C Start : 04-Mar-2019 Active vitamin b12 1 mg oral tablet (20 sources) Vitamin B12 Start: 07-22-2024 take 1 tablet by marv th once daily Start: 12-18-2023 End: 12-18-2023 cyanocobalamin (Vitamin B-12 [...] mg / clavulanate 125 mg oral tablet (6 sources) Penicillin-class Antibacterial Start: 05-18-2022 End: 07-22-2024 [...] effects. colestipol hydrochloride 1000 mg oral tablet (3 sources) Bile Acid Sequestrant Start: 02-24-2023 End: 07-22-2024 Colestipol 1 gram tablet Discontinued 1 g PO TWICE A DAY 60 30 February 24, 2023 12:00am July 22, 2024 9:04pm dicyclomine hydrochloride 10 mg oral capsule (13 sources) Anticholinergic Start: 02-28-2022 Dicyclomine HCl - 10 MG Oral Capsule Quantity: 30 Refills: 0 Ordered: 28-Feb-2022 DO Start : 28-Feb-2022 Complete Start: 02-28-2022 End: 07-30-2024 take 1-2 capsules by mouth three times daily Dicyclomine 10 mg capsule Discontinued 10 mg PO THREE TIMES A DAY 30 February 28, 2022 12:00am July 22, 2024 9:04pm take one to two capsules three times a day 24 hr dilTIAZem hydrochloride 180 mg extended release oral capsule (11 sources) Calcium Channel Isabel Start: 08-07-2024 End: 08-08-2024 take 1 capsule by mouth twice daily Diltiazem Hcl 180 mg capsule,extended release 24hr Discontinued 180 mg PO TWICE A DAY 180 3 August 07, 2024 1:36pm August 08, 2024 9:26am Start: 07-24-2024 take 1 tablet by marv th every twenty-four hours in the morning dilTIAZem CD (Cardizem CD) 180 mg 24 hr capsule Take 1 tablet by mouth early in the morning.. 07/24/2024 Active Start: 07-24-2024 End: 08-07-2024 take 1 capsule by mouth once daily 0.5 ml dulaglutide 1.5 mg/ml auto-injector (1 [...] 02/15/2023 Discontinued fluconazole 150 mg oral tablet (7 sources) Azole Antifungal Start: 06-01-2022 End: 07-22-2024 take 1 tablet by mouth once Fluconazole 150 mg tablet Discontinued 150 mg PO ONCE 1 0 June 01, 2022 1:00am July 22, 2024 [...] a week. 1 Each 0 03/24/2022 Active lisdexamfetamine dimesylate 30 mg oral capsule (20 sources) Central Nervous System Stimulant Start: 05-06-2024 End: 04-10-2024 take 1 capsule by mouth once daily Lisdexamfetamine Dimesylate (Vyvanse) 50 MG capsule Indications: Binge eating disorder, unspecified severity Take 1 capsule by mouth daily. 30 capsule 05/06/2024 04/10/2024 Discontinued (Side effects) Start: 04-10-2024 End: 09-11-2024 take 1 capsule by mouth once daily Lisdexamfetamine 30 mg capsule Discontinued 30 mg PO DAILY July 22, 2024 1:00am July 24, 2024 1:22pm Start: 10-26-2022 End: 06-19-2024 take 1 capsule [...] Ordered: 28-Jun-2022 DO Start : 28-Jun-2022 Active losartan potassium 50 mg oral tablet [...] Allowed meclizine hydrochloride 12.5 mg oral tablet (2 sources) Antiemetic Start: 06-23-2023 End: 07-22-2024 take 1 tablet by mouth three times daily as needed for dizziness Meclizine 12.5 mg tablet Discontinued 12.5 mg PO THREE TIMES A DAY as needed for dizziness 10 June 23, 2023 1:00am July 22, 2024 9:05pm methylPREDNISolone 4 MG Oral Tablet Therapy Pack (1 source) Start: 05-11-2021 methylPREDNISolone 4 MG Oral Tablet Therapy Pack as directed on package Quantity: 1 Refills: 0 Ordered: 11-May-2021 Ashlyn Gates PA-C Start : 11-May-2021 Active metoclopramide 5 mg oral tablet (5 sources) Dopamine-2 Receptor Antagonist Start: 09-02-2022 End: 07-22-2024 take 1 tablet by mouth three times daily 30 minutes before mealtime for nausea and vomiting Metoclopramide Hcl (Reglan) 5 mg tablet Discontinued 5 mg PO THREE TIMES A DAY as needed for nausea and vomiting 30 September 02, 2022 12:00am July 22, 2024 [...] cancel msg)) ondansetron 4 mg oral tablet (7 sources) Serotonin-3 Receptor Antagonist Start: 09-02-2022 End: 07-22-2024 take 1 tablet by mouth every eight hours as needed for nausea and vomiting Ondansetron Hcl 4 mg tablet Discontinued 4 mg PO Q8H as needed for nausea and vomiting 90 1 April 19, 2024 11:27am July 22, 2024 9:05pm phentermine hydrochloride 37.5 mg oral capsule (20 sources) Sympathomimetic Amine Anorectic Start: 11-02-2021 End: 01-25-2022 Adipex-P 37.5 MG Oral Capsule TAKE 1 CAPSULE DAILY- DR CELY MERIDA Quantity: 30 Refills: 0 Ordered: 02-Nov-2021 DO Start : 02-Nov-2021 End : 25-Jan-[address] GIRALDO FROM [facility] Start: 09-29-2021 End: 12-25-2021 take 60-69.9 tablets [...] sources) Sympathomimetic Amine Anorectic Start: 01-26-2022 End: 10-29-2022 take 1 tablet by mouth once daily [...] Active Start: 03-25-2021 take 1 capsule by cox monett once daily Qsymia 7.5-46 MG Oral Capsule Extended Release 24 Hour TAKE 1 CAPSULE Daily Quantity: 0 Refills: 0 Ordered: 25-Mar-2021 DO Start : 25-Mar-[address] FABI GIRALDO [facility] ([facility] Start: 03-11-2021 End: 04-30-2021 take [...] 01/05/2021 Active predniSONE 10 mg oral tablet (5 sources) Start: 05-18-2022 End: 07-22-2024 take 1 tablet by mouth twice daily Prednisone 10 mg tablet Discontinued 10 mg PO TWICE A DAY 10 0 May 18, 2022 1:00am July 22, 2024 [...] : 27-Oct-2021 End : 25-Jan-[address] KRISTAL MERIDA Start: 11-24-2020 End: 12-29-2020 Topiramate 25 MG [...] Problem Date Documented Date Episodic/Chronic Abdominal pain (11 sources) Epigastric pain; Translations: [Epigastric pain] Onset: 10-27-2022 09-03-2022 Episodic Acute bronchitis (7 sources) Acute bronchitis; Translations: [Acute bronchitis, unspecified] Onset: 10-18-2022 05-18-2022 Episodic Adjustment disorders (1 source) Stress; Translations: [Reaction to severe stress, unspecified] Chronic Anxiety disorders (20 sources) Mixed anxiety and depressive disorder; Translations: [Other specified anxiety disorders] Onset: 08-06-2020 08-06-2020 Chronic Cardiac dysrhythmias (20 sources) Paroxysmal atrial fibrillation; Translations: [Paroxysmal atrial fibrillation] Onset: 07-30-2024 07-30-2024 Chronic Contraceptive and procreative management (20 sources) Patient encounter status; Translations: [Unspecified contraceptive management] Episodic Diabetes mellitus without complication (20 sources) Impaired glucose tolerance; Translations: [Impaired glucose tolerance (oral)] Onset: 08-06-2020 08-06-2020 Episodic Diseases of white blood cells (4 sources) Leukocytosis; Translations: [Elevated white blood cell count, unspecified] Onset: 08-02-2024 07-23-2024 Chronic Disorders of lipid metabolism (20 sources) Hypercholesterolemia; Translations: [Pure hypercholesterolemia] Onset: 10-27-2022 11-01-2022 Chronic Essential hypertension (20 sources) Benign essential hypertension; Translations: [Essential (primary) hypertension] Onset: 08-06-2020 08-06-2020 Chronic Influenza (6 sources) Influenza due to Influenza A virus; [...] Translations: [Candidiasis of vulva and vagina] Episodic Other connective tissue disease (20 sources) Spasm; Translations: [Spasm of muscle] Episodic Other connective tissue disease (1 source) Fibromyalgia; Translations: [Fibromyalgia] Onset: 01-10-2023 Episodic Other disorders of stomach and duodenum (20 sources) Indigestion; Translations: [Dyspepsia and other specified disorders of function of stomach] Onset: 10-27-2022 11-01-2022 Episodic Other hematologic conditions (20 sources) Ferritin level low; Translations: [Abnormal level of blood mineral] Onset: 08-06-2020 08-06-2020 Episodic Other inflammatory condition of skin (20 sources) Sunburn of second degree; Translations: [Sunburn of second degree] Episodic Other lower respiratory disease (2 sources) Pulmonary edema; Translations: [Chronic pulmonary edema] 08-09-2024 Chronic Other lower respiratory disease (3 sources) Dyspnea on exertion; Translations: [Other forms of dyspnea] 08-01-2024 Episodic Other lower respiratory disease (2 sources) Dyspnea; Translations: [Shortness of breath] 08-07-2024 Episodic Other non-traumatic joint disorders (20 sources) [...] Chronic Other nutritional; endocrine; and metabolic disorders (19 sources) Body mass index 40+ - severely [...] [Body mass index (BMI) 60.0-69.9, adult] Onset: 06-19-2024 Chronic Other nutritional; endocrine; and metabolic disorders (5 sources) Morbid (severe) obesity due to excess calories; Translations: [Morbid (severe) obesity due to excess calories (Multi)] Onset: 07-30-2024 Chronic Other upper respiratory infections (15 sources) Acute maxillary sinusitis; Translations: [Acute maxillary sinusitis, unspecified] Onset: 04-11-2022 Episodic Residual codes; unclassified (7 sources) Obstructive sleep apnea syndrome; Translations: [Obstructive sleep apnea (adult) (pediatric)] Onset: 09-11-2024 09-11-2024 Chronic Residual codes; unclassified (3 sources) Obstructive sleep apnea (adult) (pediatric); Translations: [...] seen in 3 weeks Unclassified (1 source) Obesity, class 3; Translations: [Obesity, class 3] Onset: 06-19-2024 Unclassified (1 source) Other persistent atrial fibrillation; [...] unspecified; Translations: [Dermatitis, unspecified] Onset: 07-02-2024 Episodic Cardiac dysrhythmias (9 sources) Palpitations; Translations: [Palpitations] Onset: 08-02-2024 07-30-2024 Episodic E Codes: Adverse effects of medical drugs (4 sources) Adverse reaction to drug; Translations: [Adverse effect of unspecified drugs, medicaments and biological substances, initial encounter] Onset: 08-02-2024 08-01-2024 Episodic Nonspecific chest pain (3 sources) Chest discomfort; Translations: [Other chest pain] Onset: 08-13-2024 08-09-2024 Episodic Other circulatory disease (1 source) Other specified symptoms and signs involving the circulatory and respiratory systems; Translations: [Oth symptoms and signs involving the circ and resp systems] Onset: 04-11-2022 Episodic Other connective tissue disease (20 sources) Fibromyalgia; Translations: [Fibromyalgia] Onset: 08-06-2020 08-06-2020 Episodic Other connective tissue disease (1 source) Other muscle spasm; Translations: [Other muscle spasm] Onset: 01-25-2022 Episodic Other lower respiratory disease (20 sources) Persistent cough; Translations: [Cough] Onset: 03-08-2022 Resolved: 10-27-2022 08-03-2021 Episodic Other lower respiratory disease (4 sources) Snoring; Translations: [Snoring] Onset: 07-30-2024 07-30-2024 Episodic Other lower respiratory disease (2 sources) Snoring; Translations: [Snoring] Onset: 07-30-2024 Episodic Other lower respiratory disease (1 source) Shortness of breath; Translations: [Shortness of breath] Onset: 08-16-2024 Episodic Other lower respiratory disease (1 source) Other forms of dyspnea; Translations: [Other forms of dyspnea] Onset: 08-02-2024 Episodic Other nervous system disorders (20 sources) [...] 07-06-2021 07-06-2021 Episodic Pleurisy; pneumothorax; pulmonary collapse (19 sources) Pleurisy; Translations: [Pleurisy without mention of [...] foot, initial encounter] Onset: 01-21-2024 Episodic Unclassified (9 sources) Onset: 11-01-2022 Resolved: 01-29-2025 11-01-2022 Unclassified (1 source) Binge eating disorder, unspecified; Translations: [Binge eating disorder, unspecified] Onset: 08-07-2024 Unclassified (1 source) Obesity, class 3; Translations: [Obesity, class 3] Onset: 01-29-2025 NEGATED: Highlighted row has not occurred!Residual codes; unclassified (20 sources) Disease Episodic Results Test Name Value Interpretation Reference Range Facility Absolute lymphocyte countOrd ered By: Ashlyn Gates on 01-24-2025 Lymphocytes Auto (Unsp spec) [#/Vol] 2.26 10*3/uL 0.83-4.51 [facility] Absolute neutrophil countOrd ered By: Ashlyn Gates on 01-24-2025 Neutrophils (Bld) [#/Vol] 6.2 10*3/uL 2.0-7.7 [facility] Anion gap in Serum or Plasma Ordered By: Ashlyn Gates on 01-24-2025 Anion gap [Moles/Vol] 11 mmol/L 5-15 [facility] Automated lymphocyte count a s percentage of total leukocytesOrdered By: Ashlyn Gates on 01-24-2025 Lymphocytes/100 WBC Auto (Unsp spec) 24.5 % 19-41 [facility] BUN/creatinine ratioOrdered By: Ashlyn Gates on 01-24-2025 Urea nitrogen/Creatinine [Mass ratio] 13.2 mg/mg 10-20 [facility] Basophil percentageOrdered B y: Ashlyn Gates on 01-24-2025 Basophils/100 WBC (Bld) 0.5 % 0-[address] [facility] Bilirubin, totalOrdered By: Ashlyn Gates on 01-24-2025 Bilirubin [Mass/Vol] 0.25 mg/dL Normal 0.00-1.30 [facility] Comment on above: Performed By: #### L [id number], L100.0100, L500.2500 #### [facility] [address] [place], [address] CBC W/Diff, Automatedon 12-28 Absolute Lymph 2.26 X10 3/uL Normal 0.83-4.51 [facility] Comment on above: Performed By: #### L [id number], L100.0100, L500.2500 #### [facility] [address] [place], [address] Absolute Neut 6.2 X10 3/uL Normal 2.0-7.7 [facility] Comment on above: Performed By: #### L [id number], L100.0100, L500.2500 #### [facility] [address] [place], [address] Basophils/100 WBC (Bld) 0.5 % Normal 0-[address] [facility] Comment on above: Performed By: #### L [id number], L100.0100, L500.2500 #### [facility] [address] [place], [address] Eosinophils/100 WBC (Bld) 2.8 % Normal 0-5 [facility] Comment on above: Performed By: #### L [id number], L100.0100, L500.2500 #### [facility] [address] [place], [address] Erythrocyte distribution width (RBC) [Ratio] 13.7 % Normal 11.6-14.6 [facility] Comment on above: Performed By: #### L [id number], L100.0100, L500.2500 #### [facility] [address] [place] [place], [address] Hematocrit (Bld) [Volume fraction] 37.4 % Normal 37-47 [facility] Comment on above: Performed By: #### L 501.5425, L100.0100, L500.2500 #### [facility] [address] [place] [place], [address] Hemoglobin (Bld) [Mass/Vol] 12.3 g/dL Normal 12.0-15.0 [facility] Comment on above: Performed By: #### L 501.5425, L100.0100, L500.2500 #### [facility] [address] [place], [address] IG% 0.200 Normal 0.0-0.9 [facility] Comment on above: Result Comment: IG% - Immature Granulocytes (promyelocytes, myelocytes and metamyelocytes) > 1% indicates that a LEFT SHIFT is Present. Performed By: #### L 501.5425, L100.0100, L500.2500 #### [facility] [address] [place], [address] Lymphocytes/100 WBC (Bld) 24.5 % Normal 19-41 [facility] Comment on above: Performed By: #### L 501.5425, L100.0100, L500.2500 #### [facility] [address] [place], [address] MCH (RBC) [Entitic mass] 26.3 pg Low 27.0-32.0 [facility] Comment on above: Performed By: #### L 501.5425, L100.0100, L500.2500 #### [facility] [address] [place], [address] MCHC (RBC) [Mass/Vol] 32.9 g/dL Normal 32-36 [facility] Comment on above: Performed By: #### L 501.5425, L100.0100, L500.2500 #### [facility] [address] [place], [address] MCV (RBC) [Entitic vol] 80.1 fL Low 81-[address] [facility] Comment on above: Performed By: #### L 501.5425, L100.0100, L500.2500 #### [facility] [address] [place], [address] Monocytes/100 WBC (Bld) 5.3 % Normal 0-10 [facility] Comment on above: Performed By: #### L 501.5425, L100.0100, L500.2500 #### [facility] [address] [place], [address] Neutrophils/100 WBC (Bld) 66.7 % Normal 47-70 [facility] Comment on above: Performed By: #### L 501.5425, L100.0100, L500.2500 #### [facility] [address] [place], [address] Nucleated RBC (Bld) [#/Vol] 0 10*3/uL Normal 0-5 [facility] Comment on above: Performed By: #### L 501.5425, L100.0100, L500.2500 #### [facility] [address] [place], [address] Platelet mean volume (Bld) [Entitic vol] 11.4 fL Normal 6.2-12.0 [facility] Comment on above: Performed By: #### L 501.5425, L100.0100, L500.2500 #### [facility] [address] [place], [address] Platelets (Bld) [#/Vol] 321 10*3/uL Normal 150-450 [facility] Comment on above: Performed By: #### L 501.5425, L100.0100, L500.2500 #### [facility] [address] [place], [address] RBC (Bld) [#/Vol] 4.67 10*6/uL Normal 4.2-5.4 [facility] Comment on above: Performed By: #### L 501.5425, L100.0100, L500.2500 #### [facility] [address] [place], [address] RDW SD 39.4 fl Normal 35.1-43.9 [facility] Comment on above: Performed By: #### L 501.5425, L100.0100, L500.2500 #### [facility] [address] [place], [address] WBC (Bld) [#/Vol] 9.2 10*3/uL Normal 4.4-11.0 [facility] Comment on above: Performed By: #### L 501.5425, L100.0100, L500.2500 #### [facility] [address] [place], [address] Calculated very low density lipoprotein (VLDL) cholesterol measurementOrdered By: Ashlyn Gates on 01-24-2025 Calculated very low density lipoprotein (VLDL) cholesterol measurement 32 mg/dL 5-40 [facility] Carbon dioxide, total [Moles /volume] in Central venous bloodOrdered By: Ashlyn Gates on 01-24-2025 CO2 [Moles/Vol] 23.5 mmol/L Normal 21.0-32.0 [facility] Comment on above: Performed By: #### L 501.5425, L100.0100, L500.2500 #### [facility] [address] [place], [address] Chloride assayOrdered By: Ra aroldo Gates on 01-24-2025 Chloride [Moles/Vol] 104 mmol/L Normal 98-108 [facility] Comment on above: Performed By: #### L 501.5425, L100.0100, L500.2500 #### [facility] [address] [place], [address] Comprehensive Metabolic Prof ilon 01-24-2025 ALK PHOS 94 U/L Normal 35-104 [facility] Comment on above: Performed By: #### L 501.5425, L100.0100, L500.2500 #### [facility] [address] [place], [address] BUN/CRE 13.2 RATIO Normal 10-20 [facility] Comment on above: Performed By: #### L 501.5425, L100.0100, L500.2500 #### [facility] [address] [place], [address] GAP 11 Normal 5-15 [facility] Comment on above: Performed By: #### L 501.5425, L100.0100, L500.2500 #### [facility] [address] [place], [address] Potassium [Moles/Vol] 4.3 mmol/L Normal 3.3-5.1 [facility] Comment on above: Performed By: #### L 501.5425, L100.0100, L500.2500 #### [facility] [address] [place], [address] T PROT 6.9 g/dL Normal 5.9-8.4 [facility] Comment on above: Performed By: #### L 501.5425, L100.0100, L500.2500 #### [facility] [address] [place], [address] Comprehensive Metabolic Prof ilOrdered By: Ashlyn Gates on 01-24-2025 AST [Catalytic activity/Vol] 13 U/L Normal <=31 [facility] Comment on above: Performed By: #### L 501.5425, L100.0100, L500.2500 #### [facility] [address] [place], [address] Eosinophil percentageOrdered By: Ashlyn Gates on 01-24-2025 Eosinophils/100 WBC (Bld) 2.8 % 0-5 [facility] Erythrocyte distribution wid th ratioOrdered By: Ashlynphylicia Gates on 01-24-2025 Erythrocyte distribution width (RBC) [Ratio] 13.7 % 11.6-14.6 [facility] Erythrocyte distribution wid th standard deviationOrdered By: Ashlynphylicia Gates on 01-24-2025 Erythrocyte distribution width (RBC) [Ratio] 39.4 fl 35.1-43.9 [facility] Glomerular filtration rate ( GFR) estimation/1.73 sq m using serum, plasma, or whole bOrdered By: Ashlynphylicia Gates on 01-24-2025 GFR/1.73 sq M.predicted among non-blacks MDRD (S/P/Bld) [Vol rate/Area] 124 mL/min/{1.73_m2} Normal >60 [facility] Comment on above: mL/min/1.73m2 CKD-EP I Creatinine Equation (2020) Result Comment: mL/m in/1.73m2 CKD-EPI Creatinine Equation (2020) Performed By: #### L 501.5425, L100.0100, L500.2500 #### [facility] [address] [place], [place], [address] Hematocrit Auto (Bld) [Volum e fraction]Ordered By: Ashlyn Gates on 01-24-2025 Hematocrit (Bld) [Volume fraction] 37.4 % 37-47 [facility] Hemoglobin A1con 01-24-2025 HbA1c (Bld) [Mass fraction] 5.5 % Normal <=5.6 [facility] Comment on above: Result Comment: Norm al < 5.7 % Prediabetic 5.7 - 6.4 % Diabetic >or= 6.5 % Please note range changes. Performed By: #### L 501.5425, L100.0100, L500.2500 #### [facility] [address] [place], [address] Hemoglobin A1c percentageOrd ered By: Ashlyn Gates on 01-24-2025 HbA1c (Bld) [Mass fraction] 5.5 % <5.7 [facility] Comment on above: Normal < 5.7 % Predi abetic 5.7 - 6.4 % Diabetic >or= 6.5 % Please note range changes. Hemoglobin measurementOrdere d By: Ashlyn Gates on 01-24-2025 Hemoglobin (Bld) [Mass/Vol] 12.3 g/dL 12.0-15.0 [facility] Immature granulocytes/100 WB C Auto (Bld)Ordered By: Ashlyn Gates on 01-24-2025 Immature granulocytes/100 WBC (Bld) 0.200 % 0.0-0.9 [facility] Comment on above: IG% - Immature Granu locytes (promyelocytes, myelocytes and metamyelocytes) > 1% indicates that a LEFT SHIFT is Present. Iron measurement (mass/mass) Ordered By: Ashlyn Gates on 01-24-2025 Iron (Unsp spec) [Mass/Mass] 55 ug/dL 50-170 [facility] Iron+Iron Binding Capacityon 01-24-2025 Iron [Mass/Vol] 55 ug/dL Normal 50-170 [facility] Comment on above: Performed By: #### L 501.5425, L100.0100, L500.2500 #### [facility] [address] [place], [address] IRON SATURATION 15.0 Normal 13-59 [facility] Comment on above: Performed By: #### L 501.5425, L100.0100, L500.2500 #### [facility] [address] [place], [address] TIBC 377 ug/dL Normal 250-450 [facility] Comment on above: Performed By: #### L 501.5425, L100.0100, L500.2500 #### [facility] [address] [place], [address] UIBC 322 ug/dL Normal 228-428 [facility] Comment on above: Performed By: #### L 501.5425, L100.0100, L500.2500 #### [facility] [address] [place], [address] LDL calc ser/plasOrdered By: Ashlyn Gates on 01-24-2025 Cholesterol in LDL [Mass/Vol] 143 mg/dL [facility] Comment on above: Ygjbwbgkcx=318-197 m g/dL & Higher Tfog=767 mg/dL or greaterFriedwald Equation for LDL-C Lipid Profileon 01-24-2025 CHOL:HDL 4.84 Normal [facility] Comment on above: Performed By: #### L 501.5425, L100.0100, L500.2500 #### [facility] [address] [place], [address] Cholesterol [Mass/Vol] 221 mg/dL High <=200 [facility] Comment on above: Result Comment: Chol esterol level, Desirable <200 mg/dL Borderline high cholesterol 200-239 mg/dL High cholesterol >=240 mg/dL Recommendations of the NCEP Adult Treatment Panel for the following risk-cutoff thresholds for the [place] population. Performed By: #### L 501.5425, L100.0100, L500.2500 #### [facility] [address] [place], [address] Cholesterol in HDL [Mass/Vol] 46 mg/dL Normal [facility] Comment on above: Result Comment: Susi onal Cholesterol Education Program (NCEP) guidelines: <40 mg/dL: Low HDL-cholesterol (major risk factor for CHD) >= 60 mg/dL: High HDL-cholesterol (negative risk factor for CHD) HDL-cholesterol is affected by a number of factors, e.g. smoking, exercise, hormones, sex and age. Performed By: #### L 501.5425, L100.0100, L500.2500 #### [facility] [address] [place], [address] Cholesterol in LDL [Mass/Vol] 143 mg/dL Normal [facility] Comment on above: Result Comment: Bord muqcpf=591-802 mg/dL Higher Ekdv=423 mg/dL or greater Friedwald Equation for LDL-C Performed By: #### L 501.5425, L100.0100, L500.2500 #### [facility] [address] [place], [address] Cholesterol in VLDL [Mass/Vol] 32 mg/dL Normal 5-40 [facility] Comment on above: Performed By: #### L 501.5425, L100.0100, L500.2500 #### [facility] [address] [place], [address] Triglyceride [Mass/Vol] 161 mg/dL Normal [facility] Comment on above: Result Comment: The drugs N-Acetylcysteine and Metamizole may falsely depress this assay. Normal range: <150 mg/dL Borderline High: 150-199 mg/dL High: 200-499 mg/dL Very High: >500 mg/dL Performed By: #### L 501.5425, L100.0100, L500.2500 #### [facility] [address] [place], [address] MCV (mean corpuscular volume ) determinationOrdered By: Ashlyn Gates on 01-24-2025 MCV (RBC) [Entitic vol] 80.1 fL Low 81-99 [facility] Magnesiumon 01-24-2025 Magnesium [Mass/Vol] 1.9 mg/dL Normal 1.5-2.2 [facility] Comment on above: Performed By: #### L 501.5425, L100.0100, L500.2500 #### [facility] [address] [place], [address] Magnesium measurement (mass/ volume)Ordered By: Ashlyn Gates on 01-24-2025 Magnesium (Unsp spec) [Mass/Vol] 1.9 mg/dL 1.5-2.2 [facility] Mean corpuscular hemoglobin (MCH) determinationOrdered By: Ashlyn Gates on 01-24-2025 MCH (RBC) [Entitic mass] 26.3 pg Low 27.0-32.0 [facility] Mean corpuscular hemoglobin concentration (MCHC) determinationOrdered By: Ashlyn Gates on 01-24-2025 MCHC (RBC) [Mass/Vol] 32.9 g/dL 32-36 [facility] Mean platelet volume determi nationOrdered By: Ashlyn Gates on 01-24-2025 Platelet mean volume (Bld) [Entitic vol] 11.4 fL 6.2-12.0 [facility] Monocyte percentageOrdered B y: Ashlyn Gates on 01-24-2025 Monocytes/100 WBC (Bld) 5.3 % 0-[address] [facility] Neutrophil percentageOrdered By: Ashlyn Gates on 01-24-2025 Neutrophils/100 WBC (Bld) 66.7 % 47-70 [facility] No Panel InformationOrdered By: Ashlyn Gates on 01-24-2025 Unsaturated Iron Binding Capacity 322 ug/dL 228-428 [facility] Nucleated red blood cell per centageOrdered By: Ashlyn Gates on 01-24-2025 Nucleated RBC/100 WBC (Bld) [Ratio] 0 % 0-5 [facility] Platelet countOrdered By: Ra aroldo Gates on 01-24-2025 Platelets (Bld) [#/Vol] 321 10*3/uL 150-450 [facility] Potassium measurement (mass/ volume)Ordered By: Ashlyn Gates on 01-24-2025 Potassium (Unsp spec) [Mass/Vol] 4.3 mmol/L 3.3-5.1 [facility] RBC Auto (Bld) [#/Vol]Ordere d By: Ashlyn Gates on 01-24-2025 RBC (Bld) [#/Vol] 4.67 10*6/uL 4.2-5.4 [facility] Screening total cholesterol/ high density lipoprotein (HDL) cholesterol ratioOrdered By: Ashlyn Gates on 01-24-2025 Cholesterol.total/Carmel sterol in HDL [Mass ratio] 4.84 {ratio} [facility] Serum creatinine measurement (mass/volume)Ordered By: Ashlyn Gates on 01-24-2025 Creatinine [Mass/Vol] 0.62 mg/dL Low 0.70-1.20 [facility] Comment on above: Performed By: #### L 501.5425, L100.0100, L500.2500 #### [facility] [address] [place], [address] Serum globulin measurementOr dered By: Ashlyn Gates on 01-24-2025 Globulin (S) [Mass/Vol] 3.2 g/dL Normal 2.2-4.2 [facility] Comment on above: Performed By: #### L 501.5425, L100.0100, L500.2500 #### [facility] [address] [place], [address] Serum glucose measurement (m ass/volume)Ordered By: Ashlyn Gates on 01-24-2025 Glucose [Mass/Vol] 138 mg/dL High 70-99 [facility] Comment on above: Performed By: #### L 501.5425, L100.0100, L500.2500 #### [facility] [address] [place], [address] Serum or plasma alanine rodriguez otransferase (ALT) measurementOrdered By: Ashlyn Gates on 01-24-2025 ALT [Catalytic activity/Vol] 13 U/L Normal <=34 [facility] Comment on above: Performed By: #### L 501.5425, L100.0100, L500.2500 #### [facility] [address] [place], [address] Serum or plasma albumin sarina urement (mass/volume)Ordered By: Ashlyn Gates on 01-24-2025 Albumin [Mass/Vol] 3.8 g/dL Normal 3.5-5.0 [facility] Comment on above: Performed By: #### L 501.5425, L100.0100, L500.2500 #### [facility] [address] [place], [address] Serum or plasma albumin/glob ulin mass ratioOrdered By: Ashlyn Gates on 01-24-2025 Albumin/Globulin [Mass ratio] 1.2 {ratio} Normal 0.9-2.4 [facility] Comment on above: Performed By: #### L 501.5425, L100.0100, L500.2500 #### [facility] [address] [place], [address] Serum or plasma alkaline mayco sphatase measurementOrdered By: Ashlyn Gates on 01-24-2025 ALP [Catalytic activity/Vol] 94 U/L 35-104 [facility] Serum or plasma calcium sarina urement (mass/volume)Ordered By: Ashlyn Gates on 01-24-2025 Calcium [Mass/Vol] 8.9 mg/dL Normal 7.6-11.0 [facility] Comment on above: Performed By: #### L 501.5425, L100.0100, L500.2500 #### [facility] [address] [place], [address] Serum or plasma cholesterol in HDL measurement (mass/volume)Ordered By: Ashlyn Gates on 01-24-2025 Cholesterol in HDL [Mass/Vol] 46 mg/dL >40 [facility] Comment on above: National Cholesterol Education Program (NCEP) guidelines:<40 mg/dL: Low HDL-cholesterol (major risk factor for CHD)>= 60 mg/dL: High HDL-cholesterol (negative risk factor for CHD)HDL-cholesterol is affected by a number of factors, e.g. smoking, exercise, hormones, sex and age. Serum or plasma cholesterol measurement (mass/volume)Ordered By: Ashlyn Gates on 01-24-2025 Cholesterol [Mass/Vol] 221 mg/dL High <201 [facility] Comment on above: Cholesterol level, D esirable <200 mg/dLBorderline high cholesterol 200-239 mg/dLHigh cholesterol >=240 mg/dLRecommendations of the NCEP Adult Treatment Panel for the following risk-cutoff thresholds for the [place] population. Serum or plasma ferritin juvenal surement (mass/volume)Ordered By: Ashlyn Gates on 01-24-2025 Ferritin [Mass/Vol] 62 ng/mL Normal 22-378 [facility] Comment on above: Performed By: #### L 501.5425, L100.0100, L500.2500 #### [facility] [address] [place], [address] Serum or plasma iron saturat ion measurement (mass fraction)Ordered By: Ashlyn Gates on 01-24-2025 Iron saturation [Mass fraction] 15.0 % 13-59 [facility] Serum or plasma urea nitroge n measurement (mass/volume)Ordered By: Ashlyn Gates on 01-24-2025 Urea nitrogen [Mass/Vol] 8 mg/dL Normal 4-19 [facility] Comment on above: Performed By: #### L 501.5425, L100.0100, L500.2500 #### [facility] [address] [place], [address] Sodium levelOrdered By: Adrianna Gates on 01-24-2025 Sodium [Moles/Vol] 139 mmol/L Normal 133-145 [facility] Comment on above: Performed By: #### L 501.5425, L100.0100, L500.2500 #### [facility] [address] [place], [address] T4 Free Directon 01-24-2025 T4 FREE DIRECT 0.90 ng/dL Normal 0.76-1.46 [facility] Comment on above: Performed By: #### L 501.5425, L100.0100, L500.2500 #### [facility] [address] [place], [address] T4 freeOrdered By: Ashlyn flannery on 01-24-2025 Free T4 [Mass/Vol] 0.90 ng/dL 0.76-1.46 [facility] TSH DL <= 0.005 mIU/L QnOrde red By: Ashlyn Gates on 01-24-2025 TSH Qn 2.810 uIU/mL 0.300-4.200 [facility] Thyroid Stim Hormone (TSH)on 01-24-2025 TSH 2.810 uIU/mL Normal 0.300-4.200 [facility] Comment on above: Performed By: #### L 501.5425, L100.0100, L500.2500 #### [facility] [address] [place], [address] Total proteinOrdered By: Renetta Gates on 01-24-2025 Protein [Mass/Vol] 6.9 g/dL 5.9-8.4 [facility] Triglycerides measurementOrd ered By: Ashlyn Gates on 01-24-2025 Triglyceride [Mass/Vol] 161 mg/dL <[address] [facility] Comment on above: The drugs N-Acetylcy steine and Metamizole may falsely depress this assay. Normal range: <150 mg/dLBorderline High: 150-199 mg/dLHigh: 200-499 mg/dLVery High: >500 mg/dL Vitamin B12 ser/plasOrdered By: Ashlyn Gates on 01-24-2025 Cobalamin (Vitamin B12) [Mass/Vol] 788 pg/mL Normal 180-914 [facility] Comment on above: Performed By: #### L 501.5425, L100.0100, L500.2500 #### [facility] [address] [place], [place], [address] White blood cell (WBC) count Ordered By: Ashlyn Gates on 01-24-2025 WBC (Bld) [#/Vol] 9.2 10*3/uL 4.4-11.0 [facility] Cardiology Visit Reporton Cardiology Visit Report [facility] [address] [place], [place] [address] OFFICE VISIT Date of Service: 09/23/24 MR#: [id number] Acct: [id number] Name: YEMI JC Rep #: [id number] : 1995 Provider: MOOKIE adams Age/Sex: 29/F [place] [facility] Status: Signed HPI HPI History of Present Illness Details: This is a 29-year-old female who presents today for cardiovascular follow-up visit. She was recently hospitalized with new onset atrial fibrillation. Patient presented to the emergency department July 23 with new onset atrial for with a heart rate of 160 bpm. She was placed on oral anticoagulation due to a [id number] score of 2. The patient is morbidly [...] Visit Reasons: 6 W FU/SEE NOTE FROM Stacker Operator Required: No Is patient in pain?: No [...] for f (more content not included)... Normal [facility] 12 Lead EKG performed by [facility] [place] 08-15-2024 12 Lead EKG performed by [facility] [address] [place] [address] 12 Lead EKG performed by [facility] 08/15/24 0949 MR#: [id number] Acct: [id number] Name: YEMI JC Rep #: [id number] : 1995 29 From: Chucky Thakkar MD Attending Dr: Dr. Chucky Thakkar MD Status: D EP AMB Ordering Dr: Chucky Thakkar MD Date: 08/15/24 [place] [facility] [place]: F C Admitted: [facility]12 Lead EKG performed by [facility] ECG Report Interpretation --Sinus Rhythm - Negative precordial T-waves -Normal for age. PROBABLY NORMAL FOR AGEElectronically signed on 10/23/2024 at 13:[address] Marcelino [employer] Version [id number] 10/23/24 1317 Date Chucky Thakkar MD CC: JOHN Ramirez Date Dictated: 08/15/2449 Date Transcribed: 08/15/24948 Helmet Hat Brim Cutter: KOJO Signed Normal [facility] Cardiology Visit Reporton Cardiology Visit Report [facility] [address] [place] [address] OFFICE VISIT Date of Service: 08/15/24 MR#: [id number] Acct: [id number] Name: YEMI JC Rep #: [id number] : 1995 Provider: Dr. Chucky delgado MD Age/Sex: 29/F [place] [facility] Status: Signed with Addenda ADDENDUM by Dr. Chucky Thakkar MD on 09/12/24 at 1406 Addendum Addendum Details:: Diagnosis: New onset atrial fibrillation Assessment and Plan Assessment and Plan Orders: Orders 12 Lead EKG performed by [facility] 08/15/24 I48.91 - Unspecified atrial fibrillation, R00.0 [...] murmurs heard (more content not included)... Normal [facility] 12 Lead EKG performed by [facility] on 08-07-2024 12 Lead EKG performed by [facility] [address] [place] [address] 12 Lead EKG performed by [facility] 08/07/24 1316 MR#: [id number] Acct: [id number] Name: YEMI JC Rep #: [id number] : 1995 29 From: Danial Hernández MD Attending Dr: Dr. Danial Hernández MD Status: DE P AMB Ordering Dr: Danial Hernández MD Date: 08/07/24 [place] [facility] [place] Sex: F C Admitted: [facility]/12 Lead EKG performed by [facility] ECG Report Interpretation --Sinus Tachycardia - Nonspecific T-abnormality. ABNORMAL Electronically signed on 08/07/2024 at 14:[address] Danial Hernández [employer] Version [id number] 08/07/24 1432 Date Danial Hernández MD CC: JOHN Ramirez Date Dictated: 08/07/246 Date Transcribed: 08/07/241315 Helmet Hat Brim Cutter: Signed Normal [facility] Anion gap in Serum or Plasma Ordered By: Danial Hernández on 08-07-2024 Anion gap [Moles/Vol] 12 mmol/L 10-10 [facility] BUN/creatinine ratioOrdered By: Danial Hernández on 08-07-2024 Urea nitrogen/Creatinine [Mass ratio] 18.2 mg/mg - [facility] Basic Metabolic Profile (BMP )on 08-07-2024 BUN/CRE 18.2 RATIO Normal 03-17 [facility] Comment on above: Performed By: #### L 503.7505, L500.2500 #### [facility] [address] [place], [address] Calcium [Mass/Vol] 9.0 mg/dL Normal 7.6-11.0 [facility] Comment on above: Performed By: #### L 503.7505, L500.2500 #### [facility] [address] [place], [address] Chloride [Moles/Vol] 104 mmol/L Normal 98-108 [facility] Comment on above: Performed By: #### L 503.7505, L500.2500 #### [facility] [address] [place], [address] CO2 [Moles/Vol] 23.6 mmol/L Normal 21.0-32.0 [facility] Comment on above: Performed By: #### L 503.7505, L500.2500 #### [facility] [address] [place], [address] Creatinine [Mass/Vol] 0.71 mg/dL Normal 0.70-1.20 [facility] Comment on above: Performed By: #### L 503.7505, L500.2500 #### [facility] [address] [place], [address] GAP 12 Normal 5-15 [facility] Comment on above: Performed By: #### L 503.7505, L500.2500 #### [facility] [address] [place], [address] GFR/1.73 sq M.predicted among non-blacks MDRD (S/P/Bld) [Vol rate/Area] 119 mL/min/{1.73_m2} Normal >60 [facility] Comment on above: Result Comment: mL/m in/1.73m2 CKD-EPI Creatinine Equation (2020) Performed By: #### L 503.7505, L500.2500 #### [facility] [address] [place], [address] Glucose [Mass/Vol] 114 mg/dL High 70-99 [facility] Comment on above: Performed By: #### L 503.7505, L500.2500 #### [facility] [address] [place], [address] Potassium [Moles/Vol] 3.9 mmol/L Normal 3.3-5.1 [facility] Comment on above: Performed By: #### L 503.7505, L500.2500 #### [facility] [address] [place], [address] Sodium [Moles/Vol] 140 mmol/L Normal 133-145 [facility] Comment on above: Performed By: #### L 503.7505, L500.2500 #### [facility] [address] [place], [address] Urea nitrogen [Mass/Vol] 13 mg/dL Normal 4-19 [facility] Comment on above: Performed By: #### L 503.7505, L500.2500 #### [facility] [address] [place], [address] Carbon dioxide, total [Moles /volume] in Central venous bloodOrdered By: Danial Hernández on 08-07-2024 CO2 [Moles/Vol] 23.6 mmol/L 21.0-32.0 [facility] Chloride assayOrdered By: Paige Hernández on 08-07-2024 Chloride [Moles/Vol] 104 mmol/L 98-108 [facility] GFR/1.73 sq M.predicted marilou g non-blacks MDRD (S/P/Bld) [Vol rate/Area]Ordered By: Danial Hernández on 08-07-2024 Estimated GFR (MDRD) Non-Af Amer 119 >60 [facility] Comment on above: mL/min/1.73m2 CKD-EP I Creatinine Equation (2020) L503.7505on 08-07-2024 Natriuretic peptide B (Bld) [Mass/Vol] 799 pg/mL High <=450 [facility] Comment on above: Result Comment: Hear t Failure Unlikely: < 300 pg/mL Heart Failure Likely < 50 Years: > 450 pg/mL 50-75 Years: > 900 pg/mL >75 Years: > 1800 pg/mL Performed By: #### L 503.7505, L500.2500 #### [facility] [address] [place], [place], [address] Laboratory - Chemistry and C hemistry - challengeOrdered By: Danial Hernández on 08-07-2024 Natriuretic peptide B (Bld) [Mass/Vol] 799 pg/mL High <450 [facility] Comment on above: Heart Failure Unlike ly: < 300 pg/mLHeart Failure Likely< 50 Years: > 450 pg/mL50-75 Years: > 900 pg/mL>75 Years: > 1800 pg/mL Potassium (Unsp spec) [Mass/ Vol]Ordered By: Danial Hernández on 08-07-2024 Potassium [Moles/Vol] 3.9 mmol/L 3.3-5.1 [facility] Serum creatinine measurement (mass/volume)Ordered By: Danial Hernández on 08-07-2024 Creatinine [Mass/Vol] 0.71 mg/dL 0.70-1.20 [facility] Serum glucose measurement (m ass/volume)Ordered By: Danial Hernández on 08-07-2024 Glucose [Mass/Vol] 114 mg/dL High 70-99 [facility] Serum or plasma calcium sarina urement (mass/volume)Ordered By: Danial Hernández on 08-07-2024 Calcium [Mass/Vol] 9.0 mg/dL 7.6-11.0 [facility] Serum or plasma urea nitroge n measurement (mass/volume)Ordered By: Danial Hernández on 08-07-2024 Urea nitrogen [Mass/Vol] 13 mg/dL 4-19 [facility] Sodium levelOrdered By: Tae Hernández on 08-07-2024 Sodium [Moles/Vol] 140 mmol/L 133-145 [facility] 12 Lead EKG performed by [facility] on 08-02-2024 12 Lead EKG performed by [facility] [address] [place] [address] 12 Lead EKG performed by [facility] 08/02/24 1007 MR#: [id number] Acct: [id number] Name: YEMI JC Rep #: [id number] : 1995 29 From: Danial Hernández MD Attending Dr: Dr. Danial Hernández MD Status: DE P AMB Ordering Dr: Danial Hernández MD Date: 08/02/24 [place] [facility] [place]: F C Admitted: [facility]/12 Lead EKG performed by [facility] ECG Report Interpretation --Atrial fibrillation ABNORMAL RHYTHMElectronically signed on 08/02/2024 at 09:[address] Danial Hernández [employer] Version 8610 08/02/24 0944 Date Danial Hernández MD CC: JOHN Ramirez Date Dictated: 08/02/24 1007 Date Transcribed: 08/02/24 1007 Helmet Hat Brim Cutter: Signed Normal [facility] Cardiology Visit Reporton Cardiology Visit Report [facility] [place] [address] OFFICE VISIT Date of Service: 08/02/24 MR#: [id number] Acct: [id number] Name: YEMI JC Rep #: [id number] : 1995 Provider: Dr. Danial oswald MD Age/Sex: 29/F [place] [facility] Status: Signed with Addenda ADDENDUM by Dr. [...] Orders: Orders 12 Lead EKG performed by [facility] Today I48.91 - Unspecified atrial fibrillation Basic [...] placed on oral anticoagulation due to a [id number] score of 2. The patient is morbidly [...] Delivery Method room air Intake Visit Reasons: [facility] 07/24 AFIB Stacker Operator Required: No Accompanied by: Mother Is patient [...] you fallen in the past year?: No [facility] Medical History (Update (more content not included)... Normal [facility] Absolute neutrophil countOrd ered By: Jose Ramon Castro on 08-01-2024 Neutrophils (Bld) [#/Vol] 7.2 10*3/uL 2.0-7.7 [facility] Anion gap in Serum or Plasma Ordered By: Jose Ramon Castro on 08-01-2024 Anion gap [Moles/Vol] 15 mmol/L 10-10 [facility] BUN/creatinine ratioOrdered By: Jose Ramon Castro on 08-01-2024 Urea nitrogen/Creatinine [Mass ratio] 19.1 mg/mg - [facility] Basic Metabolic Profile (BMP )on 08-01-2024 BUN/CRE 19.1 RATIO Normal - [facility] Comment on above: Performed By: #### L 501.5425, L100.0100, L500.2500 #### [facility] [address] [place], [address] Calcium [Mass/Vol] 9.0 mg/dL Normal 7.6-11.0 [facility] Comment on above: Performed By: #### L 501.5425, L100.0100, L500.2500 #### [facility] [address] [place], [address] Chloride [Moles/Vol] 104 mmol/L Normal 98-108 [facility] Comment on above: Performed By: #### L 501.5425, L100.0100, L500.2500 #### [facility] [address] [place], [address] CO2 [Moles/Vol] 20.6 mmol/L Low 21.0-32.0 [facility] Comment on above: Performed By: #### L 501.5425, L100.0100, L500.2500 #### [facility] [address] [place], [address] Creatinine [Mass/Vol] 0.79 mg/dL Normal 0.70-1.20 [facility] Comment on above: Performed By: #### L 501.5425, L100.0100, L500.2500 #### [facility] [address] [place], [address] ECRCL 109.34 ml/min Normal 50-250 [facility] Comment on above: Performed By: #### L 501.5425, L100.0100, L500.2500 #### [facility] [address] [place], [address] GAP 15 Normal 5-15 [facility] Comment on above: Performed By: #### L 501.5425, L100.0100, L500.2500 #### [facility] [address] [place], [address] GFR/1.73 sq M.predicted among non-blacks MDRD (S/P/Bld) [Vol rate/Area] 105 mL/min/{1.73_m2} Normal >60 [facility] Comment on above: Result Comment: mL/m in/1.73m2 CKD-EPI Creatinine Equation (2020) Performed By: #### L 501.5425, L100.0100, L500.2500 #### [facility] [address] [place], [address] Glucose [Mass/Vol] 109 mg/dL High 70-99 [facility] Comment on above: Performed By: #### L 501.5425, L100.0100, L500.2500 #### [facility] [address] [place], [address] Potassium [Moles/Vol] 4.3 mmol/L Normal 3.3-5.1 [facility] Comment on above: Performed By: #### L 501.5425, L100.0100, L500.2500 #### [facility] [address] [place], [address] Sodium [Moles/Vol] 140 mmol/L Normal 133-145 [facility] Comment on above: Performed By: #### L 501.5425, L100.0100, L500.2500 #### [facility] [address] [place], [address] Urea nitrogen [Mass/Vol] 15 mg/dL Normal 4-19 [facility] Comment on above: Performed By: #### L 501.5425, L100.0100, L500.2500 #### [facility] [address] [place], [address] Basophil percentageOrdered B y: Jose Ramon Castro on 08-01-2024 Basophils/100 WBC (Bld) 0.8 % 0-[address] [facility] CBC W/Diff, Automatedon Absolute Lymph 3.61 X10 3/uL Normal 0.83-4.51 [facility] Comment on above: Performed By: #### L 501.5425, L100.0100, L500.2500 #### [facility] [address] [place], [address] Absolute Neut 7.2 X10 3/uL Normal 2.0-7.7 [facility] Comment on above: Performed By: #### L 501.5425, L100.0100, L500.2500 #### [facility] [address] [place], [address] Basophils/100 WBC (Bld) 0.8 % Normal 0-[address] [facility] Comment on above: Performed By: #### L 501.5425, L100.0100, L500.2500 #### [facility] [address] [place], [address] Eosinophils/100 WBC (Bld) 2.3 % Normal 0-5 [facility] Comment on above: Performed By: #### L 501.5425, L100.0100, L500.2500 #### [facility] [address] [place], [address] Erythrocyte distribution width (RBC) [Ratio] 13.8 % Normal 11.6-14.6 [facility] Comment on above: Performed By: #### L 501.5425, L100.0100, L500.2500 #### [facility] [address] [place], [address] Hematocrit (Bld) [Volume fraction] 38.2 % Normal 37-47 [facility] Comment on above: Performed By: #### L 501.5425, L100.0100, L500.2500 #### [facility] [address] [place], [address] Hemoglobin (Bld) [Mass/Vol] 12.7 g/dL Normal 12.0-15.0 [facility] Comment on above: Performed By: #### L 501.5425, L100.0100, L500.2500 #### [facility] [address] [place], [address] IG% 0.400 Normal 0.0-0.9 [facility] Comment on above: Result Comment: IG% - Immature Granulocytes (promyelocytes, myelocytes and metamyelocytes) > 1% indicates that a LEFT SHIFT is Present. Performed By: #### L 501.5425, L100.0100, L500.2500 #### [facility] [address] [place], [address] Lymphocytes/100 WBC (Bld) 30.4 % Normal 19-41 [facility] Comment on above: Performed By: #### L 501.5425, L100.0100, L500.2500 #### [facility] [address] [place], [address] MCH (RBC) [Entitic mass] 26.6 pg Low 27.0-32.0 [facility] Comment on above: Performed By: #### L 501.5425, L100.0100, L500.2500 #### [facility] [address] [place], [address] MCHC (RBC) [Mass/Vol] 33.2 g/dL Normal 32-36 [facility] Comment on above: Performed By: #### L 501.5425, L100.0100, L500.2500 #### [facility] [address] [place], [address] MCV (RBC) [Entitic vol] 80.1 fL Low 81-[address] [facility] Comment on above: Performed By: #### L 501.5425, L100.0100, L500.2500 #### [facility] [address] [place], [address] Monocytes/100 WBC (Bld) 5.2 % Normal 0-10 [facility] Comment on above: Performed By: #### L 501.5425, L100.0100, L500.2500 #### [facility] [address] [place], [address] Neutrophils/100 WBC (Bld) 60.9 % Normal 47-70 [facility] Comment on above: Performed By: #### L 501.5425, L100.0100, L500.2500 #### [facility] [address] [place], [address] Nucleated RBC (Bld) [#/Vol] 0 10*3/uL Normal 0-5 [facility] Comment on above: Performed By: #### L 501.5425, L100.0100, L500.2500 #### [facility] [address] [place], [address] Platelet mean volume (Bld) [Entitic vol] 11.8 fL Normal 6.2-12.0 [facility] Comment on above: Performed By: #### L 501.5425, L100.0100, L500.2500 #### [facility] [address] [place], [address] Platelets (Bld) [#/Vol] 381 10*3/uL Normal 150-450 [facility] Comment on above: Performed By: #### L 501.5425, L100.0100, L500.2500 #### [facility] [address] [place], [address] RBC (Bld) [#/Vol] 4.77 10*6/uL Normal 4.2-5.4 [facility] Comment on above: Performed By: #### L 501.5425, L100.0100, L500.2500 #### [facility] [address] [place], [address] RDW SD 40.1 fl Normal 35.1-43.9 [facility] Comment on above: Performed By: #### L 501.5425, L100.0100, L500.2500 #### [facility] [address] [place], [address] WBC (Bld) [#/Vol] 11.9 10*3/uL High 4.4-11.0 [facility] Comment on above: Performed By: #### L 501.5425, L100.0100, L500.2500 #### [facility] [address] [place], [address] Carbon dioxide, total [Moles /volume] in Central venous bloodOrdered By: Jose Ramon Castro on 08-01-2024 CO2 [Moles/Vol] 20.6 mmol/L Low 21.0-32.0 [facility] Chest 1 View (Portable)on Chest 1 View (Portable) [facility] Imaging Services [address] [place] [address] Chest 1 View (Portable) MR#: [id number] Acct: [id number] Name: YEMI JC Rep #: [id number] : 1995 F 29 From: Danial Barr i, MD PCP: JOHN Ramirez Status: REG ER Study: Chest 1 View (Portable) Date of Exam: 08/01/24 Exam# [id number] Ordering Dr: Jose Ramon Castro DO PROCEDURE: [...] Follow-up until resolution is recommended. Reading Location: [id number] CC: Dr. Jose Ramon Castro DO; JOHN Ramirez Helmet Hat Brim Cutter: Signed Normal [facility] Chloride assayOrdered By: Davis Castro on 08-01-2024 Chloride [Moles/Vol] 104 mmol/L 98-108 [facility] Emergency Department Summary on 08-01-2024 Emergency Department Summary [facility] Medical Records Department [address] [place] [address] Emergency Department Summary 08/01/24 MR#: [id number] Acct: [id number] Name: YEMI JC Rep #: [id number] [...] hospital. She is following with Dr. Hernández. [facility] Medical History Atrial fibrillation with rapid ventricular response Dyspnea on exertion Palpitations Morbid obesity with BMI of 60.0-69.9, adult Essential hypertension Home Medications ???Medication ???Instructions ???Recorded ???Last Taken ???Type buspirone 30 mg tablet 30 mg PO BID anxiety 07/22/24/2 08/20 23:24 History clotrimazole-betamethaso ne 1 1 applic [...] bowel so (more content not included)... Normal [facility] Eosinophil percentageOrdered By: Jose Ramon Castro on 08-01-2024 Eosinophils/100 WBC (Bld) 2.3 % 0-5 [facility] Erythrocyte distribution wid th ratioOrdered By: Jose Ramon Castro on 08-01-2024 Erythrocyte distribution width (RBC) [Ratio] 13.8 % 11.6-14.6 [facility] Erythrocyte distribution wid th standard deviationOrdered By: Jose Ramon Castro on 08-01-2024 Erythrocyte distribution width (RBC) [Entitic vol] 40.1 fL 35.1-43.9 [facility] Estimation of creatinine jordan aranceOrdered By: Jose Ramon Castro on 08-01-2024 Estimated Creatinine Clearance Calc 109.34 ml/min 50-250 [facility] GFR/1.73 sq M.predicted marilou g non-blacks MDRD (S/P/Bld) [Vol rate/Area]Ordered By: Jose Ramon Castro on 08-01-2024 Estimated GFR (MDRD) Non-Af Amer 105 >60 [facility] Comment on above: mL/min/1.73m2 CKD-EP I Creatinine Equation (2020) Hematocrit Auto (Bld) [Volum e fraction]Ordered By: Jose Ramon Castro on 08-01-2024 Hematocrit (Bld) [Volume fraction] 38.2 % 37-47 [facility] Hemoglobin measurementOrdere d By: Jose Ramon Castro on 08-01-2024 Hemoglobin (Bld) [Mass/Vol] 12.7 g/dL 12.0-15.0 [facility] Immature granulocytes/100 WB C Auto (Bld)Ordered By: Jose Ramon Castro on 08-01-2024 Immature granulocytes/100 WBC (Bld) 0.400 % 0.0-0.9 [facility] Comment on above: IG% - Immature Granu locytes (promyelocytes, myelocytes and metamyelocytes) > 1% indicates that a LEFT SHIFT is Present. L501.4021on 08-01-2024 Trop T High Sen < 6 Normal <=14 [facility] Comment on above: Performed By: #### L 501.4021 #### [facility] [address] [place], [address] L503.7505on 08-01-2024 Natriuretic peptide B (Bld) [Mass/Vol] 1383 pg/mL High <=450 [facility] Comment on above: Result Comment: Hear t Failure Unlikely: < 300 pg/mL Heart Failure Likely < 50 Years: > 450 pg/mL 50-75 Years: > 900 pg/mL >75 Years: > 1800 pg/mL Performed By: #### L 501.5454, L100.0100, L500.2500 #### [facility] [address] [place], [address] Laboratory - Chemistry and C hemistry - challengeOrdered By: Jose Ramon Castro on 08-01-2024 Natriuretic peptide B (Bld) [Mass/Vol] 1383 pg/mL High <450 [facility] Comment on above: Heart Failure Unlike ly: < 300 pg/mLHeart Failure Likely< 50 Years: > 450 pg/mL50-75 Years: > 900 pg/mL>75 Years: > 1800 pg/mL Lymphocytes Auto (Unsp spec) [#/Vol]Ordered By: Jose Ramon Castro on 08-01-2024 Lymphocytes (Bld) [#/Vol] 3.61 10*3/uL 0.83-4.51 [facility] Lymphocytes/100 WBC Auto (Un sp spec)Ordered By: Jose Ramon Castro on 08-01-2024 Lymphocytes/100 WBC (Bld) 30.4 % 19-41 [facility] MCV (mean corpuscular volume ) determinationOrdered By: Jose Ramon Castro on 08-01-2024 MCV (RBC) [Entitic vol] 80.1 fL Low 81-[address] [facility] Mean corpuscular hemoglobin (MCH) determinationOrdered By: Jose Ramon Castro on 08-01-2024 MCH (RBC) [Entitic mass] 26.6 pg Low 27.0-32.0 [facility] Mean corpuscular hemoglobin concentration (MCHC) determinationOrdered By: Jose Ramon Castro on 08-01-2024 MCHC (RBC) [Mass/Vol] 33.2 g/dL 32-36 [facility] Mean platelet volume determi nationOrdered By: Jose Ramon Castro on 08-01-2024 Platelet mean volume (Bld) [Entitic vol] 11.8 fL 6.2-12.0 [facility] Monocyte percentageOrdered B y: Jose Ramon Castro on 08-01-2024 Monocytes/100 WBC (Bld) 5.2 % 0-[address] [facility] Neutrophil percentageOrdered By: Jose Ramon Castro on 08-01-2024 Neutrophils/100 WBC (Bld) 60.9 % 47-70 [facility] No Panel InformationOrdered By: Jose Ramon Castro on 08-01-2024 Troponin T High Sensitivity < 6 ng/L <14 [facility] Nucleated red blood cell per centageOrdered By: Jose Ramon Castro on 08-01-2024 Nucleated RBC/100 WBC (Bld) [Ratio] 0 % 0-5 [facility] Platelet countOrdered By: Davis Castro on 08-01-2024 Platelets (Bld) [#/Vol] 381 10*3/uL 150-450 [facility] Potassium (Unsp spec) [Mass/ Vol]Ordered By: Jose Ramon Castro on 08-01-2024 Potassium [Moles/Vol] 4.3 mmol/L 3.3-5.1 [facility] RBC Auto (Bld) [#/Vol]Ordere d By: Jose Ramon Castro on 08-01-2024 RBC (Bld) [#/Vol] 4.77 10*6/uL 4.2-5.4 [facility] Serum creatinine measurement (mass/volume)Ordered By: Jose Ramon Castro on 08-01-2024 Creatinine [Mass/Vol] 0.79 mg/dL 0.70-1.20 [facility] Serum glucose measurement (m ass/volume)Ordered By: Jose Ramon Castro on 08-01-2024 Glucose [Mass/Vol] 109 mg/dL High 70-99 [facility] Serum or plasma calcium sarina urement (mass/volume)Ordered By: Jose Ramon Castro on 08-01-2024 Calcium [Mass/Vol] 9.0 mg/dL 7.6-11.0 [facility] Serum or plasma urea nitroge n measurement (mass/volume)Ordered By: Jose Ramon Castro on 08-01-2024 Urea nitrogen [Mass/Vol] 15 mg/dL 4-19 [facility] Sodium levelOrdered By: Jordan Castro on 08-01-2024 Sodium [Moles/Vol] 140 mmol/L 133-145 [facility] White blood cell (WBC) count Ordered By: Jose Ramon Castro on 08-01-2024 WBC (Bld) [#/Vol] 11.9 10*3/uL High 4.4-11.0 [facility] Absolute neutrophil countOrd ered By: Marlin Sidhu on 07-24-2024 Neutrophils (Bld) [#/Vol] 14.0 10*3/uL High 2.0-7.7 [facility] BUN/creatinine ratioOrdered By: Marlin Sidhu on 07-24-2024 Urea nitrogen/Creatinine [Mass ratio] 12.3 mg/mg 10-20 [facility] Basic Metabolic Profile (BMP )on 07-24-2024 CO2 [Moles/Vol] 19.1 mmol/L Low 21.0-32.0 [facility] Comment on above: Performed By: #### L 501.2300, L500.2500 #### [facility] [address] [place], [address] GAP 13 Normal 5-15 [facility] Comment on above: Performed By: #### L 501.2300, L500.2500 #### [facility] [address] [place], [address] Calcium [Mass/Vol] 8.7 mg/dL Normal 7.6-11.0 [facility] Comment on above: Performed By: #### L 501.2300, L500.2500 #### [facility] [address] [place], [address] Chloride [Moles/Vol] 105 mmol/L Normal 98-107 [facility] Comment on above: Performed By: #### L 501.2300, L500.2500 #### [facility] [address] [place], [address] EST GFR - AA TNP Normal >60 [facility] Comment on above: Performed By: #### L 501.2300, L500.2500 #### [facility] [address] [place], [address] Potassium [Moles/Vol] 3.9 mmol/L Normal 3.5-5.1 [facility] Comment on above: Performed By: #### L 501.2300, L500.2500 #### [facility] [address] [place], [address] Sodium [Moles/Vol] 137 mmol/L Normal 136-145 [facility] Comment on above: Performed By: #### L 501.2300, L500.2500 #### [facility] [address] [place], [address] Basophil percentageOrdered B y: Marlin Sidhu on 07-24-2024 Basophils/100 WBC (Bld) 0.3 % 0-[address] [facility] CBC W/Diff, Automatedon 06-30 Absolute Lymph 1.86 X10 3/uL Normal 0.83-4.51 [facility] Comment on above: Performed By: #### L 100.0100 #### [facility] [address] [place], [address] Absolute Neut 14.0 X10 3/uL High 2.0-7.7 [facility] Comment on above: Performed By: #### L 100.0100 #### [facility] [address] [place], [address] Basophils/100 WBC (Bld) 0.3 % Normal 0-[address] [facility] Comment on above: Performed By: #### L 100.0100 #### [facility] [address] [place], [address] Eosinophils/100 WBC (Bld) 0.4 % Normal 0-5 [facility] Comment on above: Performed By: #### L 100.0100 #### [facility] [address] [place], [address] Erythrocyte distribution width (RBC) [Ratio] 14.1 % Normal 11.6-14.6 [facility] Comment on above: Performed By: #### L 100.0100 #### [facility] [address] [place], [address] Hematocrit (Bld) [Volume fraction] 36.5 % Low 37-47 [facility] Comment on above: Performed By: #### L 100.0100 #### [facility] [address] [place], [address] Hemoglobin (Bld) [Mass/Vol] 11.9 g/dL Low 12.0-15.0 [facility] Comment on above: Performed By: #### L 100.0100 #### [facility] [address] [place], [address] IG% 0.400 Normal 0.0-0.9 [facility] Comment on above: Result Comment: IG% - Immature Granulocytes (promyelocytes, myelocytes and metamyelocytes) > 1% indicates that a LEFT SHIFT is Present. Performed By: #### L 100.0100 #### [facility] [address] [place], [address] Lymphocytes/100 WBC (Bld) 11.1 % Low 19-41 [facility] Comment on above: Performed By: #### L 100.0100 #### [facility] [address] [place], [address] MCH (RBC) [Entitic mass] 26.2 pg Low 27.0-32.0 [facility] Comment on above: Performed By: #### L 100.0100 #### [facility] [address] [place], [address] MCHC (RBC) [Mass/Vol] 32.6 g/dL Normal 32-36 [facility] Comment on above: Performed By: #### L 100.0100 #### [facility] [address] [place], [address] MCV (RBC) [Entitic vol] 80.2 fL Low 81-[address] [facility] Comment on above: Performed By: #### L 100.0100 #### [facility] [address] [place], [address] Monocytes/100 WBC (Bld) 4.1 % Normal 0-[address] [facility] Comment on above: Performed By: #### L 100.0100 #### [facility] [address] [place], [address] Neutrophils/100 WBC (Bld) 83.7 % High 47-70 [facility] Comment on above: Performed By: #### L 100.0100 #### [facility] [address] [place], [address] Nucleated RBC (Bld) [#/Vol] 0 10*3/uL Normal 0-5 [facility] Comment on above: Performed By: #### L 100.0100 #### [facility] [address] [place], [address] Platelet mean volume (Bld) [Entitic vol] 11.2 fL Normal 6.2-12.0 [facility] Comment on above: Performed By: #### L 100.0100 #### [facility] [address] [place], [address] Platelets (Bld) [#/Vol] 296 10*3/uL Normal 150-450 [facility] Comment on above: Performed By: #### L 100.0100 #### [facility] [address] [place], [address] RBC (Bld) [#/Vol] 4.55 10*6/uL Normal 4.2-5.4 [facility] Comment on above: Performed By: #### L 100.0100 #### [facility] [address] [place], [address] RDW SD 40.9 fl Normal 35.1-43.9 [facility] Comment on above: Performed By: #### L 100.0100 #### [facility] [address] [place], [place], [address] WBC (Bld) [#/Vol] 16.7 10*3/uL High 4.4-11.0 [facility] Comment on above: Performed By: #### L 100.0100 #### [facility] [address] [place], [address] Creatinine [Moles/Vol]Ordere d By: Marlin Sidhu on 07-24-2024 Creatinine [Mass/Vol] 0.6 mg/dL 0.6-1.0 [facility] Eosinophil percentageOrdered By: Marlin Siduh on 07-24-2024 Eosinophils/100 WBC (Bld) 0.4 % 0-5 [facility] Erythrocyte distribution wid th ratioOrdered By: Marlin Sidhu on 07-24-2024 Erythrocyte distribution width (RBC) [Ratio] 14.1 % 11.6-14.6 [facility] Erythrocyte distribution wid th standard deviationOrdered By: Marlin Sidhu on 07-24-2024 Erythrocyte distribution width (RBC) [Entitic vol] 40.9 fL 35.1-43.9 [facility] Estimated glomerular filtrat ion rate (GFR) AmericanOrdered By: Marlin Sidhu on 07-24-2024 Estimated GFR (MDRD) Amer TNP [facility] Comment on above: Test not performed Estimation of creatinine jordan aranceOrdered By: Marlin Sidhu on 07-24-2024 Estimated Creatinine Clearance Calc 226.81 ml/min [facility] GFR/1.73 sq M.predicted marilou g non-blacks MDRD (S/P/Bld) [Vol rate/Area]Ordered By: Marlin Sidhu on 07-24-2024 Estimated GFR (MDRD) Non-Af Amer 127 >60 [facility] Comment on above: mL/min/1.73m2 CKD-EP I Creatinine Equation (2020) Hematocrit Auto (Bld) [Volum e fraction]Ordered By: Marlin Sidhu on 07-24-2024 Hematocrit (Bld) [Volume fraction] 36.5 % Low 37-47 [facility] Hemoglobin measurementOrdere d By: Marlin Sidhu on 07-24-2024 Hemoglobin (Bld) [Mass/Vol] 11.9 g/dL Low 12.0-15.0 [facility] Immature granulocytes/100 WB C Auto (Bld)Ordered By: Marlin Sidhu on 07-24-2024 Immature granulocytes/100 WBC (Bld) 0.400 % 0.0-0.9 [facility] Comment on above: IG% - Immature Granu locytes (promyelocytes, myelocytes and metamyelocytes) > 1% indicates that a LEFT SHIFT is Present. Lymphocytes Auto (Unsp spec) [#/Vol]Ordered By: Marlin Sidhu on 07-24-2024 Lymphocytes (Bld) [#/Vol] 1.86 10*3/uL 0.83-4.51 [facility] Lymphocytes/100 WBC Auto (Un sp spec)Ordered By: Marlin Sidhu on 07-24-2024 Lymphocytes/100 WBC (Bld) 11.1 % Low 19-41 [facility] MCV (mean corpuscular volume ) determinationOrdered By: Marlin Sidhu on 07-24-2024 MCV (RBC) [Entitic vol] 80.2 fL Low 81-[address] [facility] Mean corpuscular hemoglobin (MCH) determinationOrdered By: Marlin Sidhu on 07-24-2024 MCH (RBC) [Entitic mass] 26.2 pg Low 27.0-32.0 [facility] Mean corpuscular hemoglobin concentration (MCHC) determinationOrdered By: Marlin Sidhu on 07-24-2024 MCHC (RBC) [Mass/Vol] 32.6 g/dL 32-36 [facility] Mean platelet volume determi nationOrdered By: Marlin Sidhu on 07-24-2024 Platelet mean volume (Bld) [Entitic vol] 11.2 fL 6.2-12.0 [facility] Monocyte percentageOrdered B y: Marlin Sidhu on 07-24-2024 Monocytes/100 WBC (Bld) 4.1 % 0-[address] [facility] Neutrophil percentageOrdered By: Marlin Sidhu on 07-24-2024 Neutrophils/100 WBC (Bld) 83.7 % High 47-70 [facility] Nucleated red blood cell per centageOrdered By: Marlin Sidhu on 07-24-2024 Nucleated RBC/100 WBC (Bld) [Ratio] 0 % 0-5 [facility] Phosphoruson 07-24-2024 Phosphate [Mass/Vol] 3.2 mg/dL Normal 2.7-4.5 [facility] Comment on above: Performed By: #### L 501.2300, L500.2500 #### [facility] [address] [place], [address] Platelet countOrdered By: John Sidhu on 07-24-2024 Platelets (Bld) [#/Vol] 296 10*3/uL 150-450 [facility] Potassium measurementOrdered By: Marlin Sidhu on 07-24-2024 Potassium [Moles/Vol] 3.9 mmol/L 3.5-5.1 [facility] RBC Auto (Bld) [#/Vol]Ordere d By: Marlin Sidhu on 07-24-2024 RBC (Bld) [#/Vol] 4.55 10*6/uL 4.2-5.4 [facility] Serum anion gap measurementO rdered By: Marlin Sidhu on 07-24-2024 Anion gap [Moles/Vol] 13 mmol/L 5-15 [facility] Serum glucose measurement (m ass/volume)Ordered By: Marlin Sidhu on 07-24-2024 Glucose [Mass/Vol] 113 mg/dL High 70-99 [facility] Serum or plasma calcium sarina urement (mass/volume)Ordered By: Marlin Sidhu on 07-24-2024 Calcium [Mass/Vol] 8.7 mg/dL 7.6-11.0 [facility] Serum or plasma carbon dioxi de measurement (moles/volume)Ordered By: Marlin Sidhu on 07-24-2024 CO2 [Moles/Vol] 19.1 mmol/L Low 21.0-32.0 [facility] Serum or plasma chloride juvenal surement (moles/volume)Ordered By: Marlin Sidhu on 07-24-2024 Chloride [Moles/Vol] 105 mmol/L 98-107 [facility] Serum or plasma urea nitroge n measurement (mass/volume)Ordered By: Marlin Sidhu on 07-24-2024 Urea nitrogen [Mass/Vol] 7 mg/dL 4-19 [facility] Serum phosphorus measurement Ordered By: Wilfrid Canada on 07-24-2024 Phosphorus Level 3.2 mg/dL 2.7-4.5 [facility] Sodium levelOrdered By: Eli Sidhu on 07-24-2024 Sodium [Moles/Vol] 137 mmol/L 136-145 [facility] White blood cell (WBC) count Ordered By: Marlin Sidhu on 07-24-2024 WBC (Bld) [#/Vol] 16.7 10*3/uL High 4.4-11.0 [facility] Albumin to globulin ratioOrd ered By: Wilfrid Caanda on 07-23-2024 Albumin/Globulin [Mass ratio] 0.6 {ratio} Low 0.9-2.4 [facility] Bilirubin, totalOrdered By: Wilfrid Canada on 07-23-2024 Bilirubin [Mass/Vol] 0.30 mg/dL 0.20-1.00 [facility] Comment on above: For patients on eltr ombopag therapy, use of Dimension [place] TBIL is not recommended. CBC W/Diff, Automatedon 06-30 Absolute Lymph 3.31 X10 3/uL Normal 0.83-4.51 [facility] Comment on above: Performed By: #### L 100.0100 #### [facility] [address] [place], [address] Absolute Neut 8.0 X10 3/uL High 2.0-7.7 [facility] Comment on above: Performed By: #### L 100.0100 #### [facility] [address] [place], [address] Basophils/100 WBC (Bld) 0.4 % Normal 0-[address] [facility] Comment on above: Performed By: #### L 100.0100 #### [facility] [address] [place], [address] Eosinophils/100 WBC (Bld) 1.0 % Normal 0-5 [facility] Comment on above: Performed By: #### L 100.0100 #### [facility] [address] [place], [address] Erythrocyte distribution width (RBC) [Ratio] 14.0 % Normal 11.6-14.6 [facility] Comment on above: Performed By: #### L 100.0100 #### [facility] [address] [place], [address] Hematocrit (Bld) [Volume fraction] 36.2 % Low 37-47 [facility] Comment on above: Performed By: #### L 100.0100 #### [facility] [address] [place], [address] Hemoglobin (Bld) [Mass/Vol] 11.8 g/dL Low 12.0-15.0 [facility] Comment on above: Performed By: #### L 100.0100 #### [facility] [address] [place], [address] IG% 0.300 Normal 0.0-0.9 [facility] Comment on above: Result Comment: IG% - Immature Granulocytes (promyelocytes, myelocytes and metamyelocytes) > 1% indicates that a LEFT SHIFT is Present. Performed By: #### L 100.0100 #### [facility] [address] [place], [address] Lymphocytes/100 WBC (Bld) 27.5 % Normal 19-41 [facility] Comment on above: Performed By: #### L 100.0100 #### [facility] [address] [place], [address] MCH (RBC) [Entitic mass] 26.1 pg Low 27.0-32.0 [facility] Comment on above: Performed By: #### L 100.0100 #### [facility] [address] [place], [address] MCHC (RBC) [Mass/Vol] 32.6 g/dL Normal 32-36 [facility] Comment on above: Performed By: #### L 100.0100 #### [facility] [address] [place], [address] MCV (RBC) [Entitic vol] 80.1 fL Low 81-[address] [facility] Comment on above: Performed By: #### L 100.0100 #### [facility] [address] [place], [address] Monocytes/100 WBC (Bld) 4.4 % Normal 0-10 [facility] Comment on above: Performed By: #### L 100.0100 #### [facility] [address] [place], [address] Neutrophils/100 WBC (Bld) 66.4 % Normal 47-70 [facility] Comment on above: Performed By: #### L 100.0100 #### [facility] [address] [place], [address] Nucleated RBC (Bld) [#/Vol] 0 10*3/uL Normal 0-5 [facility] Comment on above: Performed By: #### L 100.0100 #### [facility] [address] [place], [address] Platelet mean volume (Bld) [Entitic vol] 11.3 fL Normal 6.2-12.0 [facility] Comment on above: Performed By: #### L 100.0100 #### [facility] [address] [place], [address] Platelets (Bld) [#/Vol] 284 10*3/uL Normal 150-450 [facility] Comment on above: Performed By: #### L 100.0100 #### [facility] [address] [place], [address] RBC (Bld) [#/Vol] 4.52 10*6/uL Normal 4.2-5.4 [facility] Comment on above: Performed By: #### L 100.0100 #### [facility] [address] [place], [address] RDW SD 40.6 fl Normal 35.1-43.9 [facility] Comment on above: Performed By: #### L 100.0100 #### [facility] [address] [place], [address] WBC (Bld) [#/Vol] 12.1 10*3/uL High 4.4-11.0 [facility] Comment on above: Performed By: #### L 100.0100 #### [facility] [address] [place], [address] Comprehensive Metabolic Prof ilon 07-23-2024 Albumin [Mass/Vol] 2.6 g/dL Low 3.2-5.0 [facility] Comment on above: Order Comment: Comme nts: SPECIMEN #3'TROP' Serial specimen #1, #2 or #3: 3 Performed By: #### L 100.0100 #### [facility] [address] [place], [address] Albumin/Globulin [Mass ratio] 0.6 {ratio} Low 0.9-2.4 [facility] Comment on above: Order Comment: Comme nts: SPECIMEN #3'TROP' Serial specimen #1, #2 or #3: 3 Performed By: #### L 100.0100 #### [facility] [address] [place], [address] ALK P 83 U/L Normal 45-117 [facility] Comment on above: Order Comment: Comme nts: SPECIMEN #3'TROP' Serial specimen #1, #2 or #3: 3 Performed By: #### L 100.0100 #### [facility] [address] [place], [address] ALT [Catalytic activity/Vol] 17 U/L Normal 13-56 [facility] Comment on above: Order Comment: Comme nts: SPECIMEN #3'TROP' Serial specimen #1, #2 or #3: 3 Performed By: #### L 100.0100 #### [facility] [address] [place], [address] AST [Catalytic activity/Vol] 8 U/L Low 15-37 [facility] Comment on above: Order Comment: Comme nts: SPECIMEN #3'TROP' Serial specimen #1, #2 or #3: 3 Performed By: #### L 100.0100 #### [facility] [address] [place], [address] Bilirubin [Mass/Vol] 0.30 mg/dL Normal 0.20-1.00 [facility] Comment on above: Order Comment: Comme nts: SPECIMEN #3'TROP' Serial specimen #1, #2 or #3: 3 Result Comment: For patients on eltrombopag therapy, use of Dimension [place] TBIL is not recommended. Performed By: #### L 100.0100 #### [facility] [address] [place], [address] BUN/CRE 13.6 RATIO Normal 10-20 [facility] Comment on above: Order Comment: Comme nts: SPECIMEN #3'TROP' Serial specimen #1, #2 or #3: 3 Performed By: #### L 100.0100 #### [facility] [address] [place], [address] CA,Total 8.2 mg/dL Low 8.5-10.1 [facility] Comment on above: Order Comment: Comme nts: SPECIMEN #3'TROP' Serial specimen #1, #2 or #3: 3 Performed By: #### L 100.0100 #### [facility] [address] [place], [address] Chloride [Moles/Vol] 108 mmol/L High 98-107 [facility] Comment on above: Order Comment: Comme nts: SPECIMEN #3'TROP' Serial specimen #1, #2 or #3: 3 Performed By: #### L 100.0100 #### [facility] [address] [place], [address] CO2 [Moles/Vol] 24.0 mmol/L Normal 21.0-32.0 [facility] Comment on above: Order Comment: Comme nts: SPECIMEN #3'TROP' Serial specimen #1, #2 or #3: 3 Performed By: #### L 100.0100 #### [facility] [address] [place], [address] Creatinine [Mass/Vol] 0.52 mg/dL Low 0.55-1.02 [facility] Comment on above: Order Comment: Comme nts: SPECIMEN #3'TROP' Serial specimen #1, #2 or #3: 3 Result Comment: The validity of the calculated GFR GFRAA in patients over 70 years has not been determined. Clinical correlation is essential. Performed By: #### L 100.0100 #### [facility] [address] [place], [address] ECRCL 261.29 ml/min Normal [facility] Comment on above: Order Comment: Comme nts: SPECIMEN #3'TROP' Serial specimen #1, #2 or #3: 3 Performed By: #### L 100.0100 #### [facility] [address] [place], [address] EST GFR - AA 182 mL/min Normal >60 [facility] Comment on above: Order Comment: Comme nts: SPECIMEN #3'TROP' Serial specimen #1, #2 or #3: 3 Result Comment: Afri can [place] GFR Calc Performed By: #### L 100.0100 #### [facility] [address] [place], [address] GAP 7 Normal 5-15 [facility] Comment on above: Order Comment: Comme nts: SPECIMEN #3'TROP' Serial specimen #1, #2 or #3: 3 Performed By: #### L 100.0100 #### [facility] [address] [place], [address] GFR/1.73 sq M.predicted among non-blacks MDRD (S/P/Bld) [Vol rate/Area] 150 mL/min/{1.73_m2} Normal >60 [facility] Comment on above: Order Comment: Comme nts: SPECIMEN #3'TROP' Serial specimen #1, #2 or #3: 3 Result Comment: Non- GFR Calc Performed By: #### L 100.0100 #### [facility] [address] [place], [address] Globulin (S) [Mass/Vol] 4.1 g/dL Normal 2.2-4.2 [facility] Comment on above: Order Comment: Comme nts: SPECIMEN #3'TROP' Serial specimen #1, #2 or #3: 3 Performed By: #### L 100.0100 #### [facility] [address] [place], [address] Glucose [Mass/Vol] 102 mg/dL Normal 74-106 [facility] Comment on above: Order Comment: Comme nts: SPECIMEN #3'TROP' Serial specimen #1, #2 or #3: 3 Result Comment: Fast ing Glucose result from 100 to 125 mg/dL suggests IMPAIRED HOMEOSTASIS per A.D.A. criteria. Performed By: #### L 100.0100 #### [facility] [address] [place], [address] Potassium [Moles/Vol] 3.6 mmol/L Normal 3.5-5.1 [facility] Comment on above: Order Comment: Comme nts: SPECIMEN #3'TROP' Serial specimen #1, #2 or #3: 3 Performed By: #### L 100.0100 #### [facility] [address] [place], [address] Sodium [Moles/Vol] 138 mmol/L Normal 136-145 [facility] Comment on above: Order Comment: Comme nts: SPECIMEN #3'TROP' Serial specimen #1, #2 or #3: 3 Performed By: #### L 100.0100 #### [facility] [address] [place], [address] T PROT 6.7 g/dL Normal 6.4-8.2 [facility] Comment on above: Order Comment: Comme nts: SPECIMEN #3'TROP' Serial specimen #1, #2 or #3: 3 Performed By: #### L 100.0100 #### [facility] [address] [place], [address] Urea nitrogen [Mass/Vol] 7 mg/dL Normal 7-18 [facility] Comment on above: Order Comment: Comme nts: SPECIMEN #3'TROP' Serial specimen #1, #2 or #3: 3 Performed By: #### L 100.0100 #### [facility] [address] [place], [address] Consultation - Cardiologyon 07-23-2024 Consultation - Cardiology [facility] Medical Records Department [address] [place] [address] [place] [address] Consultation - Cardiology 07/23/24 0734 MR#: [id number] Acct: [id number] Name: YEMI JC Rep #: [id number] : 1995 29 From: Danial Hernández MD PCP: JOHN Ramirez Status:ADM JIMMIE Location: [place] [address] Assessment Plan Assessment/Plan (1) Atrial fibrillation with [...] from Lovenox to oral Eliquis as her [id number] or of 2 would relegate her to [...] Eliquis for oral anticoagulation therapy given her [id number] score of 2. 2. I will continue [...] not recently by her report. The patient's [id number] score is 2 based on her age hypertension and female gender. [facility] Medical History Acute bronchitis, unspecified Influenza A Home Medications ???Medication ???Instructions ???Recorded ???Last Taken ???Type buspirone 30 mg tabl (more content not included)... Normal [facility] L501.4020on 07-23-2024 TROPONIN-I HS 5 pg/mL Normal 3.0-54.0 [facility] Comment on above: Order Comment: Comme nts: SPECIMEN #3'TROP' Serial specimen #1, #2 or #3: 3 Result Comment: Plekatrina acosta Note: New Test Units and Gender Specific Reference Ranges. For more information see Policy Stat Procedure [place] High Sensitivity Troponin (TNIH) and attachments. Performed By: #### L 100.0100 #### [facility] [address] [place], [address] TROPONIN-I HS 4 pg/mL Normal 3.0-54.0 [facility] Comment on above: Order Comment: Comme nts: SPECIMEN #2'TROP' Serial specimen #1, #2 or #3: 2 Result Comment: Plea se Note: New Test Units and Gender Specific Reference Ranges. For more information see Policy Stat Procedure [place] High Sensitivity Troponin (TNIH) and attachments. Performed By: #### L 100.0100 #### [facility] [address] [place], [place], [address] TROPONIN-I HS 5 pg/mL Normal 3.0-54.0 [facility] Comment on above: Order Comment: 'TROP ' Serial specimen #1, #2 or #3: 1 Result Comment: Plea se Note: New Test Units and Gender Specific Reference Ranges. For more information see Policy Stat Procedure [place] High Sensitivity Troponin (TNIH) and attachments. Performed By: #### L 100.0100 #### [facility] [address] [facility] [place], [place], [id number] Laboratory - Chemistry and C hemistry - challengeOrdered By: Wilfrid Canada on 07-23-2024 AST [Catalytic activity/Vol] 8 U/L Low 15-37 [facility] Phosphoruson 07-23-2024 Phosphate [Mass/Vol] 3.1 mg/dL Normal 2.5-4.9 [facility] Comment on above: Order Comment: Comme nts: SPECIMEN #3'TROP' Serial specimen #1, #2 or #3: 3 Performed By: #### L 100.0100 #### [facility] Laboratory [address] [place], [place], [id number] Serum globulin measurementOr dered By: Wilfrid Canada on 07-23-2024 Globulin (S) [Mass/Vol] 4.1 g/dL 2.2-4.[address] [facility] Serum or plasma alanine rodriguez otransferase (ALT) measurementOrdered By: Wilfrid Canada on 07-23-2024 ALT [Catalytic activity/Vol] 17 U/L 13-56 [facility] Serum or plasma albumin sarina urement (mass/volume)Ordered By: Wilfrid Canada on 07-23-2024 Albumin [Mass/Vol] 2.6 g/dL Low 3.2-5.0 [facility] Serum or plasma alkaline mayco sphatase measurementOrdered By: Wilfrid Canada on 07-23-2024 ALP [Catalytic activity/Vol] 83 U/L 45-117 [facility] Total proteinOrdered By: Marlo Canada on 07-23-2024 Protein [Mass/Vol] 6.7 g/dL 6.4-8.2 [facility] Troponin IOrdered By: Wilfrid Canada on 07-23-2024 Troponin I High Sensitivity 5 pg/mL 3.0-54.0 [facility] Comment on above: Please Note: [place] t Units and Gender Specific Reference Ranges. For more information see Policy Stat Procedure [place] High Sensitivity Troponin (TNIH) and attachments. 12 Lead EKGon 07-22-2024 12 Lead EKG [facility] Cardiovascular Services [address] [place] [address] 12 Lead EKG 07/22/24 1731 MR#: [id number] Acct: [id number] Name: YEMI JC Rep #: [id number] : 1995 29 From: Danial Hernández MD Attending Dr: Dr. Nirmala Arenas DO Status: ADM I N Ordering Dr: Eric Figueroa DO Date: 07/22/24 Location: [facility] Sex: F C Admitted: 07/23/24 Test Reason [...] abnormality Abnormal ECG Confirmed by Danial Hernández ([id number]), field map editor JUAN PABLO CARLSON ([id number]) on 07/24/2024 8:03:56 AM Referred By: Confirmed By: Danial Hernández 07/24/24 0804 Date Danial Hernández MD CC: Dr. Nirmala Arenas DO; Dr. Eric Figueroa, DO; JOHN Ramirez Signed Normal [facility] Basic Metabolic Profile (BMP )on 07-22-2024 BUN/CRE 15.3 RATIO Normal 10-20 [facility] Comment on above: Performed By: #### L 501.5425, L100.0100, L500.2500 #### [facility] [address] [place], [address] CA,Total 9.3 mg/dL Normal 8.5-10.1 [facility] Comment on above: Performed By: #### L 501.5425, L100.0100, L500.2500 #### [facility] [address] [place], [address] Chloride [Moles/Vol] 106 mmol/L Normal 98-107 [facility] Comment on above: Performed By: #### L 501.5425, L100.0100, L500.2500 #### [facility] [address] [place], [address] CO2 [Moles/Vol] 23.0 mmol/L Normal 21.0-32.0 [facility] Comment on above: Performed By: #### L 501.5425, L100.0100, L500.2500 #### [facility] [address] [place], [address] Creatinine [Mass/Vol] 0.72 mg/dL Normal 0.55-1.02 [facility] Comment on above: Result Comment: The validity of the calculated GFR GFRAA in patients over 70 years has not been determined. Clinical correlation is essential. Performed By: #### L 501.5425, L100.0100, L500.2500 #### [facility] [address] [place], [address] ECRCL 188.93 ml/min Normal [facility] Comment on above: Performed By: #### L 501.5425, L100.0100, L500.2500 #### [facility] [address] [place], [address] EST GFR - AA 124 mL/min Normal >60 [facility] Comment on above: Result Comment: Afri can [place] GFR Calc Performed By: #### L 501.5425, L100.0100, L500.2500 #### [facility] [address] [place], [address] GAP 8 Normal 5-15 [facility] Comment on above: Performed By: #### L 501.5425, L100.0100, L500.2500 #### [facility] [address] [place], [address] GFR/1.73 sq M.predicted among non-blacks MDRD (S/P/Bld) [Vol rate/Area] 102 mL/min/{1.73_m2} Normal >60 [facility] Comment on above: Result Comment: Non- GFR Calc Performed By: #### L 501.5425, L100.0100, L500.2500 #### [facility] [address] [place], [address] Glucose [Mass/Vol] 89 mg/dL Normal 74-106 [facility] Comment on above: Performed By: #### L 501.5425, L100.0100, L500.2500 #### [facility] [address] [place], [address] Potassium [Moles/Vol] 3.9 mmol/L Normal 3.5-5.1 [facility] Comment on above: Performed By: #### L 501.5425, L100.0100, L500.2500 #### [facility] [address] [place], [address] Sodium [Moles/Vol] 137 mmol/L Normal 136-145 [facility] Comment on above: Performed By: #### L 501.5425, L100.0100, L500.2500 #### [facility] [address] [place], [address] Urea nitrogen [Mass/Vol] 11 mg/dL Normal 7-18 [facility] Comment on above: Performed By: #### L 501.5425, L100.0100, L500.2500 #### [facility] [address] [place], [address] Beta HCG ( test) Ql Ordered By: Eric Figueroa on 07-22-2024 Serum Test, Qualitative Negative [facility] CBC W/Diff, Automatedon 06-30 Absolute Lymph 4.31 X10 3/uL Normal 0.83-4.51 [facility] Comment on above: Performed By: #### L 501.5425, L100.0100, L500.2500 #### [facility] [address] [place], [address] Absolute Neut 6.7 X10 3/uL Normal 2.0-7.7 [facility] Comment on above: Performed By: #### L 501.5425, L100.0100, L500.2500 #### [facility] [address] [place], [address] Basophils/100 WBC (Bld) 0.6 % Normal 0-[address] [facility] Comment on above: Performed By: #### L 501.5425, L100.0100, L500.2500 #### [facility] [address] [place], [address] Eosinophils/100 WBC (Bld) 1.9 % Normal 0-5 [facility] Comment on above: Performed By: #### L 501.5425, L100.0100, L500.2500 #### [facility] [address] [place], [address] Erythrocyte distribution width (RBC) [Ratio] 13.9 % Normal 11.6-14.6 [facility] Comment on above: Performed By: #### L 501.5425, L100.0100, L500.2500 #### [facility] [address] [place], [address] Hematocrit (Bld) [Volume fraction] 41.1 % Normal 37-47 [facility] Comment on above: Performed By: #### L 501.5425, L100.0100, L500.2500 #### [facility] [address] [place], [address] Hemoglobin (Bld) [Mass/Vol] 13.5 g/dL Normal 12.0-15.0 [facility] Comment on above: Performed By: #### L 501.5425, L100.0100, L500.2500 #### [facility] [address] [place], [address] IG% 0.300 Normal 0.0-0.9 [facility] Comment on above: Result Comment: IG% - Immature Granulocytes (promyelocytes, myelocytes and metamyelocytes) > 1% indicates that a LEFT SHIFT is Present. Performed By: #### L 501.5425, L100.0100, L500.2500 #### [facility] [address] [place], [address] Lymphocytes/100 WBC (Bld) 35.9 % Normal 19-41 [facility] Comment on above: Performed By: #### L 501.5425, L100.0100, L500.2500 #### [facility] [address] [place], [address] MCH (RBC) [Entitic mass] 26.3 pg Low 27.0-32.0 [facility] Comment on above: Performed By: #### L 501.5425, L100.0100, L500.2500 #### [facility] [address] [place], [address] MCHC (RBC) [Mass/Vol] 32.8 g/dL Normal 32-36 [facility] Comment on above: Performed By: #### L 501.5425, L100.0100, L500.2500 #### [facility] [address] [place], [address] MCV (RBC) [Entitic vol] 80.1 fL Low 81-[address] [facility] Comment on above: Performed By: #### L 501.5425, L100.0100, L500.2500 #### [facility] [address] [place], [address] Monocytes/100 WBC (Bld) 5.6 % Normal 0-10 [facility] Comment on above: Performed By: #### L 501.5425, L100.0100, L500.2500 #### [facility] [address] [place], [address] Neutrophils/100 WBC (Bld) 55.7 % Normal 47-70 [facility] Comment on above: Performed By: #### L 501.5425, L100.0100, L500.2500 #### [facility] [address] [place], [address] Nucleated RBC (Bld) [#/Vol] 0 10*3/uL Normal 0-5 [facility] Comment on above: Performed By: #### L 501.5425, L100.0100, L500.2500 #### [facility] [address] [place], [address] Platelet mean volume (Bld) [Entitic vol] 11.5 fL Normal 6.2-12.0 [facility] Comment on above: Performed By: #### L 501.5425, L100.0100, L500.2500 #### [facility] [address] [place], [address] Platelets (Bld) [#/Vol] 382 10*3/uL Normal 150-450 [facility] Comment on above: Performed By: #### L 501.5425, L100.0100, L500.2500 #### [facility] [address] [place], [address] RBC (Bld) [#/Vol] 5.13 10*6/uL Normal 4.2-5.4 [facility] Comment on above: Performed By: #### L 501.5425, L100.0100, L500.2500 #### [facility] [address] [place], [address] RDW SD 40.4 fl Normal 35.1-43.9 [facility] Comment on above: Performed By: #### L 501.5425, L100.0100, L500.2500 #### [facility] [address] [place], [address] WBC (Bld) [#/Vol] 12.0 10*3/uL High 4.4-11.0 [facility] Comment on above: Performed By: #### L 501.5425, L100.0100, L500.2500 #### [facility] [address] [place], [address] CTA Chest W/WO Contraston CTA Chest W/WO Contrast [facility] Imaging Services [address] [place] [address] CTA Chest W/WO Contrast MR#: [id number] Acct: [id number] Name: YEMI JC Rep #: [id number] : 1995 F 29 From: Deacon Sandoval i DO PCP: JOHN Ramirez Status: [facility] ER Study: CTA Chest W/WO Contrast Date of Exam: 07/22/24 Exam# [id number] Ordering Dr: Eric Figueroa DO PROCEDURE: CT [...] use of iterative reconstruction technique). [facility] CC: Dr. Eric Figueroa DO; JOHN Ramirez Helmet Hat Brim Cutter: Signed Normal [facility] Chest 1 View (Portable)on Chest 1 View (Portable) [facility] Imaging Services [address] [place] [address] Chest 1 View (Portable) MR#: [id number] Acct: [id number] Name: YEMI JC Rep #: [id number] : 1995 F 29 From: Deacon Sandoval i, DO PCP: JOHN Ramirez Status: REG ER Study: Chest 1 View (Portable) Date of Exam: 07/22/24 Exam# [id number] Ordering Dr: Eric Figueroa DO PROCEDURE: Portable [...] CT evaluation may be considered. [facility] CC: Dr. Eric Figueroa DO; JOHN Ramirez Helmet Hat Brim Cutter: Signed Normal [facility] Direct serum free thyroxine (FT4) measurementOrdered By: Eric Figueroa on 07-22-2024 Free T4 [Mass/Vol] 0.97 ng/dL 0.76-1.46 [facility] Echo Complete W/ Contraston 07-22-2024 Echo Complete W/ Contrast [facility] Cardiovascular Services [address] [place] [address] Echo Complete W/ Contrast 07/23/24 0819 MR#: [id number] Acct: [id number] Name: YEMI JC Rep #: [id number] : 1995 29 From: Joselin Craig MD Attending Dr: Dr. Marlin Sidhu MD Status: ADM JIMMIE Ordering Dr: Wilfrid Hernandez DO Date: 07/22/24 Location: PCU Sex: F C Admitted: 07/22/24 Reason For [...] Referring Physician: Ashlyn Gates Performed By: Ashlyn Vizcaino, RDCS, RVT 07/23/24 1348 Date Joselin Craig MD CC: Dr. Wilfrid Hernandez DO; Dr. Marlin Sidhu MD; JOHN Ramirez Date Dictated: 07/23/24 08 Date Transcribed: 07/23/241347 Helmet Hat Brim Cutter: Signed Normal [facility] Emergency Department Summary on 07-22-2024 Emergency Department Summary [facility] Medical Records Department [address] [place] [address] Emergency Department Summary 07/22/24 MR#: [id number] Acct: [id number] Name: YEMI JC Rep #: [id number] [...] to a concert over the weekend to [place] and then recently again to [place]. Patient denies any history of blood clots. [facility] Medical History Acute bronchitis, unspecified Influenza A [...] following commands knew that she was at [facility] year is 2024 Skin: Warm, dry, [...] Delivery Metho (more content not included)... Normal [facility] Free T3on 07-22-2024 Free T3 [Mass/Vol] 3.1 pg/mL Normal 2.18-3.98 [facility] Comment on above: Performed By: #### L 501.4021 #### [facility] [place], [address] Free [id number] By: Eric delacruz on 07-22-2024 Free Triiodothyronine (T3) pg/dL 3.1 pg/mL 2.18-3.98 [facility] H AND P Exam - Hospitaliston 07-22-2024 H&P Exam - Hospitalist [facility] Medical Records Department [address] [place] [address] H P Exam - Hospitalist 07/22/242027 MR#: [id number] Acct: [id number] Name: YEMI JC Rep #: [id number] : 1995 29 From: Wilfrid Hernandez DO PCP: JOHN Ramirez Status:ADM JIMMIE Location: [place] [address] HPI - General General Date of Admission: [...] and GERD; on omeprazole who presents to [facility] ER complaining of palpitations, heart racing [...] to a concert over the weekend to [place] followed by another concert in [place], [place] but she denies being on OCP's [...] is expected to extend beyond 2 midnights. [facility] Medical History Acute bronchitis, unspecified Influenza A [...] 98 Oxyg (more content not included)... Normal [facility] L501.4020on 07-22-2024 TROPONIN-I HS 5 pg/mL Normal 3.0-54.0 [facility] Comment on above: Result Comment: Plea se Note: New Test Units and Gender Specific Reference Ranges. For more information see Policy Stat Procedure [place] High Sensitivity Troponin (TNIH) and attachments. Performed By: #### L 501.4020 #### [facility] Laboratory [address] [place], [address] L501.5425on 07-22-2024 TROPONIN-I HS 7 pg/mL Normal 3.0-54.0 [facility] Comment on above: Order Comment: 1 Y Result Comment: Plea se Note: New Test Units and Gender Specific Reference Ranges. For more information see Policy Stat Procedure [place] High Sensitivity Troponin (TNIH) and attachments. Performed By: #### L 501.5423, L100.0100, L500.2500 #### [facility] [address] [place], [address] Magnesiumon 07-22-2024 Magnesium [Mass/Vol] 1.9 mg/dL Normal 1.6-2.6 [facility] Comment on above: Performed By: #### L 100.0100 #### [facility] [address] [place], [address] Magnesium measurementOrdered By: Wilfrid Canada on 07-22-2024 Magnesium [Mass/Vol] 1.9 mg/dL 1.6-2.6 [facility] Methadone, urineOrdered By: Eric Figueroa on 07-22-2024 Urine Methadone Screen Negative < 300 ng/mL [facility] No Panel InformationOrdered By: Eric Figueroa on 07-22-2024 Urine Drug Screen Comment [facility] Comment on above: CONFIRMATORY TESTING FOR [...] Quali.on 07-22-2024 HCG, SERUM QUAL Negative Normal [facility] Comment on above: Performed By: #### L 501.4021 #### [facility] [address] [place], [address] Quantitative urine opiates m easurementOrdered By: Eric Figueroa on 07-22-2024 Opiates Ql (U) Negative < 300 ng/mL [facility] T4 Free Directon 07-22-2024 T4 FREE DIRECT 0.97 ng/dL Normal 0.76-1.46 [facility] Comment on above: Performed By: #### L 501.4021 #### [facility] Laboratory [address] [place], [place], [address] TSH QnOrdered By: Eric ward on 07-22-2024 Thyroid Stimulating Hormone (TSH) 3.100 uIU/mL 0.358-3.740 [facility] Thyroid Stim Hormone (TSH)on 07-22-2024 TSH 3.100 uIU/mL Normal 0.358-3.740 [facility] Comment on above: Performed By: #### L 501.4021 #### [facility] [address] [place], [address] Urine Drug Screen (VISTA)on 07-22-2024 AMPHETAMINES Negative Normal <1000 ng/mL [facility] Comment on above: Performed By: #### L 100.0100 #### [facility] [address] [place], [address] BARBITIURATES Negative Normal < 200 ng/mL [facility] Comment on above: Performed By: #### L 100.0100 #### [facility] [address] [place], [address] BENZODIAZIPINE Negative Normal < 200 ng/mL [facility] Comment on above: Performed By: #### L 100.0100 #### [facility] [address] [place], [address] COCAINE Negative Normal < 300 ng/mL [facility] Comment on above: Performed By: #### L 100.0100 #### [facility] [address] [place], [address] ECSTACY Negative Normal < 500 ng/mL [facility] Comment on above: Performed By: #### L 100.0100 #### [facility] [address] [place], [address] METHADONE Negative Normal < 300 ng/mL [facility] Comment on above: Performed By: #### L 100.0100 #### [facility] [address] [place], [address] OPIATES Negative Normal < 300 ng/mL [facility] Comment on above: Performed By: #### L 100.0100 #### [facility] [address] [place], [address] PCP Negative Normal < 25 ng/mL [facility] Comment on above: Performed By: #### L 100.0100 #### [facility] [address] [place], [address] THC Negative Normal < 50 ng/mL [facility] Comment on above: Performed By: #### L 100.0100 #### [facility] [address] [place], [place], [address] VISTA UDS PH 5 Normal [facility] Comment on above: Performed By: #### L 100.0100 #### [facility] [address] [place], [place], [address] Urine amphetamine measuremen tOrdered By: Eric Figueroa on 07-22-2024 Amphetamines Ql (U) Negative <1000 ng/mL [facility] Urine barbiturates measureme ntOrdered By: Eric Figueroa on 07-22-2024 Urine Barbiturates Screen Negative < 200 ng/mL [facility] Urine benzodiazepine levelOr dered By: Eric Figueroa on 07-22-2024 Benzodiazepines Ql (U) Negative < 200 ng/mL [facility] Urine cocaine levelOrdered B y: Eric Figueroa on 07-22-2024 Cocaine Ql (U) Negative < 300 ng/mL [facility] Urine pfxlq-2-ylsxbpgfrhobgt abinol (THC) measurementOrdered By: Eric Figueroa on 07-22-2024 Cannabinoids Screen Ql (U) Negative < 50 ng/mL [facility] Urine methylenedioxymethamph etamine (MDMA) measurementOrdered By: Eric Figueroa on 07-22-2024 MDMA (Ecstasy) Screen Negative < 500 ng/mL [facility] Urine phencyclidine (PCP) de tectionOrdered By: Eric Figueroa on 07-22-2024 Phencyclidine Ql (U) Negative < 25 ng/mL [facility] Absolute neutrophil countOrd ered By: Ashlyn Gates on 06-17-2024 Neutrophils (Bld) [#/Vol] 6.9 10*3/uL 2.0-7.7 [facility] Albumin to globulin ratioOrd ered By: Ashlyn Gates on 06-17-2024 Albumin/Globulin [Mass ratio] 0.8 {ratio} Low 0.9-2.4 [facility] Basophil percentageOrdered B y: Ashlyn Gates on 06-17-2024 Basophils/100 WBC (Bld) 0.5 % 0-[address] [facility] Bilirubin, totalOrdered By: Ashlyn Gates on 06-17-2024 Bilirubin [Mass/Vol] 0.40 mg/dL 0.20-1.00 [facility] Comment on above: For patients on eltr ombopag therapy, use of Dimension [place] TBIL is not recommended. Blood urea nitrogen (BUN)/cr eatinine ratioOrdered By: Ashlyn Gates on 06-17-2024 Urea nitrogen/Creatinine [Mass ratio] 19.7 mg/mg - [facility] CBC W/Diff, Automatedon 05-30 Absolute Lymph 2.80 X10 3/uL Normal 0.83-4.51 [facility] Comment on above: Performed By: #### L 501.5425, L100.0100, L500.2500 #### [facility] Laboratory [address] [place], [address] Absolute Neut 6.9 X10 3/uL Normal 2.0-7.7 [facility] Comment on above: Performed By: #### L 501.5425, L100.0100, L500.2500 #### [facility] [address] [place], [address] Basophils/100 WBC (Bld) 0.5 % Normal 0-[address] [facility] Comment on above: Performed By: #### L 501.5425, L100.0100, L500.2500 #### [facility] [address] [place], [address] Eosinophils/100 WBC (Bld) 2.2 % Normal 0-5 [facility] Comment on above: Performed By: #### L 501.5425, L100.0100, L500.2500 #### [facility] [address] [place], [address] Erythrocyte distribution width (RBC) [Ratio] 13.7 % Normal 11.6-14.6 [facility] Comment on above: Performed By: #### L 501.5425, L100.0100, L500.2500 #### [facility] [address] [place], [address] Hematocrit (Bld) [Volume fraction] 37.3 % Normal 37-47 [facility] Comment on above: Performed By: #### L 501.5425, L100.0100, L500.2500 #### [facility] [address] [place], [address] Hemoglobin (Bld) [Mass/Vol] 12.2 g/dL Normal 12.0-15.0 [facility] Comment on above: Performed By: #### L 501.5425, L100.0100, L500.2500 #### [facility] [address] [place], [address] IG% 0.400 Normal 0.0-0.9 [facility] Comment on above: Result Comment: IG% - Immature Granulocytes (promyelocytes, myelocytes and metamyelocytes) > 1% indicates that a LEFT SHIFT is Present. Performed By: #### L 501.5425, L100.0100, L500.2500 #### [facility] [address] [place], [address] Lymphocytes/100 WBC (Bld) 26.5 % Normal 19-41 [facility] Comment on above: Performed By: #### L 501.5425, L100.0100, L500.2500 #### [facility] [address] [place], [address] MCH (RBC) [Entitic mass] 26.5 pg Low 27.0-32.0 [facility] Comment on above: Performed By: #### L 501.5425, L100.0100, L500.2500 #### [facility] [address] [place], [address] MCHC (RBC) [Mass/Vol] 32.7 g/dL Normal 32-36 [facility] Comment on above: Performed By: #### L 501.5425, L100.0100, L500.2500 #### [facility] [address] [place], [address] MCV (RBC) [Entitic vol] 80.9 fL Low 81-99 [facility] Comment on above: Performed By: #### L 501.5425, L100.0100, L500.2500 #### [facility] [address] [place], [address] Monocytes/100 WBC (Bld) 4.8 % Normal 0-10 [facility] Comment on above: Performed By: #### L 501.5425, L100.0100, L500.2500 #### [facility] [address] [place], [address] Neutrophils/100 WBC (Bld) 65.6 % Normal 47-70 [facility] Comment on above: Performed By: #### L 501.5425, L100.0100, L500.2500 #### [facility] [address] [place], [address] Nucleated RBC (Bld) [#/Vol] 0 10*3/uL Normal 0-5 [facility] Comment on above: Performed By: #### L 501.5425, L100.0100, L500.2500 #### [facility] [address] [place], [address] Platelet mean volume (Bld) [Entitic vol] 11.3 fL Normal 6.2-12.0 [facility] Comment on above: Performed By: #### L 501.5425, L100.0100, L500.2500 #### [facility] [address] [place], [address] Platelets (Bld) [#/Vol] 300 10*3/uL Normal 150-450 [facility] Comment on above: Performed By: #### L 501.5425, L100.0100, L500.2500 #### [facility] [address] [place], [address] RBC (Bld) [#/Vol] 4.61 10*6/uL Normal 4.2-5.4 [facility] Comment on above: Performed By: #### L 501.5425, L100.0100, L500.2500 #### [facility] [address] [place], [address] RDW SD 40.0 fl Normal 35.1-43.9 [facility] Comment on above: Performed By: #### L 501.5425, L100.0100, L500.2500 #### [facility] [address] [place], [address] WBC (Bld) [#/Vol] 10.6 10*3/uL Normal 4.4-11.0 [facility] Comment on above: Performed By: #### L 501.5425, L100.0100, L500.2500 #### [facility] [address] [place], [address] Carbon dioxide measurementOr dered By: Ashlyn Gates on 06-17-2024 CO2 [Moles/Vol] 27.0 mmol/L 21.0-32.0 [facility] Chloride measurementOrdered By: Ashlyn Gates on 06-17-2024 Chloride [Moles/Vol] 107 mmol/L 98-107 [facility] Comprehensive Metabolic Prof ilon 06-17-2024 Albumin [Mass/Vol] 3.1 g/dL Low 3.2-5.0 [facility] Comment on above: Performed By: #### L 501.5425, L100.0100, L500.2500 #### [facility] [address] [place], [address] Albumin/Globulin [Mass ratio] 0.8 {ratio} Low 0.9-2.4 [facility] Comment on above: Performed By: #### L 501.5425, L100.0100, L500.2500 #### [facility] [address] [place], [address] ALK P 95 U/L Normal 45-117 [facility] Comment on above: Performed By: #### L 501.5425, L100.0100, L500.2500 #### [facility] [address] [place], [address] ALT [Catalytic activity/Vol] 16 U/L Normal 13-56 [facility] Comment on above: Performed By: #### L 501.5425, L100.0100, L500.2500 #### [facility] [address] [place], [address] AST [Catalytic activity/Vol] 9 U/L Low 15-37 [facility] Comment on above: Performed By: #### L 501.5425, L100.0100, L500.2500 #### [facility] [address] [place], [address] Bilirubin [Mass/Vol] 0.40 mg/dL Normal 0.20-1.00 [facility] Comment on above: Result Comment: For patients on eltrombopag therapy, use of Dimension [place] TBIL is not recommended. Performed By: #### L 501.5425, L100.0100, L500.2500 #### [facility] [address] [place], [address] BUN/CRE 19.7 RATIO Normal 10-20 [facility] Comment on above: Performed By: #### L 501.5425, L100.0100, L500.2500 #### [facility] [address] [place], [address] CA,Total 8.9 mg/dL Normal 8.5-10.1 [facility] Comment on above: Performed By: #### L 501.5425, L100.0100, L500.2500 #### [facility] [address] [place], [address] Chloride [Moles/Vol] 107 mmol/L Normal 98-107 [facility] Comment on above: Performed By: #### L 501.5425, L100.0100, L500.2500 #### [facility] [address] [place], [address] CO2 [Moles/Vol] 27.0 mmol/L Normal 21.0-32.0 [facility] Comment on above: Performed By: #### L 501.5425, L100.0100, L500.2500 #### [facility] [address] [place], [address] Creatinine [Mass/Vol] 0.66 mg/dL Normal 0.55-1.02 [facility] Comment on above: Result Comment: The validity of the calculated GFR GFRAA in patients over 70 years has not been determined. Clinical correlation is essential. Performed By: #### L 501.5425, L100.0100, L500.2500 #### [facility] [address] [place], [address] EST GFR - AA 137 mL/min Normal >60 [facility] Comment on above: Result Comment: Afri can [place] GFR Calc Performed By: #### L 501.5425, L100.0100, L500.2500 #### [facility] [address] [place], [address] GAP 5 Normal 5-15 [facility] Comment on above: Performed By: #### L 501.5425, L100.0100, L500.2500 #### [facility] [address] [place], [address] GFR/1.73 sq M.predicted among non-blacks MDRD (S/P/Bld) [Vol rate/Area] 113 mL/min/{1.73_m2} Normal >60 [facility] Comment on above: Result Comment: Non- GFR Calc Performed By: #### L 501.5425, L100.0100, L500.2500 #### [facility] [address] [place], [address] Globulin (S) [Mass/Vol] 3.8 g/dL Normal 2.2-4.2 [facility] Comment on above: Performed By: #### L 501.5425, L100.0100, L500.2500 #### [facility] [address] [place], [address] Glucose [Mass/Vol] 113 mg/dL High 74-106 [facility] Comment on above: Result Comment: Fast ing Glucose result from 100 to 125 mg/dL suggests IMPAIRED HOMEOSTASIS per A.D.A. criteria. Performed By: #### L 501.5425, L100.0100, L500.2500 #### [facility] [address] [place], [address] Potassium [Moles/Vol] 4.0 mmol/L Normal 3.5-5.1 [facility] Comment on above: Performed By: #### L 501.5425, L100.0100, L500.2500 #### [facility] [address] [place], [address] Sodium [Moles/Vol] 139 mmol/L Normal 136-145 [facility] Comment on above: Performed By: #### L 501.5425, L100.0100, L500.2500 #### [facility] [address] [place], [address] T PROT 6.9 g/dL Normal 6.4-8.2 [facility] Comment on above: Performed By: #### L 501.5425, L100.0100, L500.2500 #### [facility] [address] [place], [address] Urea nitrogen [Mass/Vol] 13 mg/dL Normal 7-18 [facility] Comment on above: Performed By: #### L 501.5425, L100.0100, L500.2500 #### [facility] [address] [place], [address] Eosinophil percentageOrdered By: Ashlyn Gates on 06-17-2024 Eosinophils/100 WBC (Bld) 2.2 % 0-5 [facility] Erythrocyte distribution wid th ratioOrdered By: Ashlyn Gates on 06-17-2024 Erythrocyte distribution width (RBC) [Ratio] 13.7 % 11.6-14.6 [facility] Erythrocyte distribution wid th standard deviationOrdered By: Ashlyn Gates on 06-17-2024 Erythrocyte distribution width (RBC) [Entitic vol] 40.0 fL 35.1-43.9 [facility] Estimated glomerular filtrat ion rate (GFR) AmericanOrdered By: Ashlyn Gates on 06-17-2024 Estimated GFR (MDRD) Amer 137 mL/min >60 [facility] Comment on above: GFR Calc Ferritinon 06-17-2024 Ferritin [Mass/Vol] 19 ng/mL Normal 8- [facility] Comment on above: Performed By: #### L 501.5425, L100.0100, L500.2500 #### [facility] [address] [place], [address] Ferritin measurementOrdered By: Ashlyn Gates on 06-17-2024 Ferritin [Mass/Vol] 19 ng/mL 8-252 [facility] Glomerular filtration rate ( GFR) estimationOrdered By: Ashlyn Gates on 06-17-2024 Estimated GFR (MDRD) Non-Af Amer 113 mL/min >60 [facility] Comment on above: Non- GFR Calc Glucose measurementOrdered B y: Ashlyn Gates on 06-17-2024 Glucose [Mass/Vol] 113 mg/dL High 74-106 [facility] Comment on above: Fasting Glucose resu lt from 100 to 125 mg/dL suggests IMPAIRED HOMEOSTASIS per A.D.A. criteria. Hematocrit Auto (Bld) [Volum e fraction]Ordered By: Ashlyn Gates on 06-17-2024 Hematocrit (Bld) [Volume fraction] 37.3 % 37-47 [facility] Hemoglobin A1con 06-17-2024 HbA1c (Bld) [Mass fraction] 5.4 % Normal 3.8-5.6 [facility] Comment on above: Result Comment: Norm al < 5.7 % Prediabetic 5.7 - 6.4 % Diabetic >or= 6.5 % Please note range changes. Performed By: #### L 501.7866, L100.0100, L500.2500 #### [facility] [address] [facility] [place], [address] Hemoglobin A1c percentageOrd ered By: Ashlyn Gates on 06-17-2024 HbA1c (Bld) [Mass fraction] 5.4 % 3.8-5.6 [facility] Comment on above: Normal < 5.7 % Predi abetic 5.7 - 6.4 % Diabetic >or= 6.5 % Please note range changes. Hemoglobin measurementOrdere d By: Ashlyn Gates on 06-17-2024 Hemoglobin (Bld) [Mass/Vol] 12.2 g/dL 12.0-15.0 [facility] High density lipoprotein (HD L) measurementOrdered By: Ashlyn Gates on 06-17-2024 Cholesterol in HDL [Mass/Vol] 52 mg/dL >40 [facility] Comment on above: The drugs N-Acetylcy steine and Metamizole may falsely depress this assay. Reference Range HDL <40 mg/dL Low HDL Cholesterol HDL >or= 60 mg/dL High HDL Cholesterol Immature granulocytes/100 WB C Auto (Bld)Ordered By: Ashlyn Gates on 06-17-2024 Immature granulocytes/100 WBC (Bld) 0.400 % 0.0-0.9 [facility] Comment on above: IG% - Immature Granu locytes (promyelocytes, myelocytes and metamyelocytes) > 1% indicates that a LEFT SHIFT is Present. Iron (Unsp spec) [Mass/Mass] Ordered By: Ashlyn Gates on 06-17-2024 Iron [Mass/Vol] 64 ug/dL 50-170 [facility] Iron saturation [Mass fracti on]Ordered By: Ashlyn Gates on 06-17-2024 Iron Saturation 15.7 % 15.0-55.0 [facility] Iron+Iron Binding Capacityon 06-17-2024 Iron [Mass/Vol] 64 ug/dL Normal 50-170 [facility] Comment on above: Performed By: #### L 501.5425, L100.0100, L500.2500 #### [facility] [address] [place], [address] IRON SATURATION 15.7 Normal 15.0-55.0 [facility] Comment on above: Performed By: #### L 501.5425, L100.0100, L500.2500 #### [facility] [address] [place], [address] TIBC 408 ug/dL Normal 250-450 [facility] Comment on above: Performed By: #### L 501.5425, L100.0100, L500.2500 #### [facility] [address] [facility] [place], [address] Laboratory - Chemistry and C hemistry - challengeOrdered By: Ashlyn Gates on 06-17-2024 AST [Catalytic activity/Vol] 9 U/L Low 15-37 [facility] Lipid Profileon 06-17-2024 Cholesterol [Mass/Vol] 228 mg/dL High 200 [facility] Comment on above: Result Comment: <200 mg/dL Desirable 200-240 mg/dL Borderline >240 mg/dL High Risk Performed By: #### L 501.5425, L100.0100, L500.2500 #### [facility] [address] [place], [address] Cholesterol in HDL [Mass/Vol] 52 mg/dL Normal [facility] Comment on above: Result Comment: The drugs N-Acetylcysteine and Metamizole may falsely depress this assay. Reference Range HDL <40 mg/dL Low HDL Cholesterol HDL >or= 60 mg/dL High HDL Cholesterol Performed By: #### L 501.5425, L100.0100, L500.2500 #### [facility] [address] [place], [address] Cholesterol in LDL [Mass/Vol] 142 mg/dL High 0-130 [facility] Comment on above: Performed By: #### L 501.5425, L100.0100, L500.2500 #### [facility] [address] [place], [address] Cholesterol in VLDL [Mass/Vol] 34 mg/dL Normal 5-40 [facility] Comment on above: Performed By: #### L 501.5425, L100.0100, L500.2500 #### [facility] [address] [place], [address] Triglyceride [Mass/Vol] 170 mg/dL Normal [facility] Comment on above: Result Comment: The drugs N-Acetylcysteine and Metamizole may falsely depress this assay. Serum Triglycerides Reference Interval Normal <150 mg/dL Borderline high 150 - 199 mg/dL High 200 - 499 mg/dL Very High > or = 500 mg/dL Performed By: #### L 501.5425, L100.0100, L500.2500 #### [facility] [address] [place], [address] Low density lipoprotein (LDL ) cholesterol measurementOrdered By: Ashlyn Gates on 06-17-2024 Cholesterol in LDL [Mass/Vol] 142 mg/dL High 0-130 [facility] Lymphocytes Auto (Unsp spec) [#/Vol]Ordered By: Ashlyn Gates on 06-17-2024 Lymphocytes (Bld) [#/Vol] 2.80 10*3/uL 0.83-4.51 [facility] Lymphocytes/100 WBC Auto (Un sp spec)Ordered By: Ashlyn Gates on 06-17-2024 Lymphocytes/100 WBC (Bld) 26.5 % 19-41 [facility] MCV (mean corpuscular volume ) determinationOrdered By: Ashlyn Gates on 06-17-2024 MCV (RBC) [Entitic vol] 80.9 fL Low 81-[address] [facility] Magnesiumon 06-17-2024 Magnesium [Mass/Vol] 1.9 mg/dL Normal 1.6-2.6 [facility] Comment on above: Performed By: #### L 501.5425, L100.0100, L500.2500 #### [facility] [address] [place] [address], [address] Magnesium measurementOrdered By: Ashlyn Gates on 06-17-2024 Magnesium [Mass/Vol] 1.9 mg/dL 1.6-2.6 [facility] Mean corpuscular hemoglobin (MCH) determinationOrdered By: Ashlyn Gates on 06-17-2024 MCH (RBC) [Entitic mass] 26.5 pg Low 27.0-32.0 [facility] Mean corpuscular hemoglobin concentration (MCHC) determinationOrdered By: Ashlyn Gates on 06-17-2024 MCHC (RBC) [Mass/Vol] 32.7 g/dL 32-36 [facility] Mean platelet volume determi nationOrdered By: Ashlyn Gates on 06-17-2024 Platelet mean volume (Bld) [Entitic vol] 11.3 fL 6.2-12.0 [facility] Monocyte percentageOrdered B y: Ashlyn Gates on 06-17-2024 Monocytes/100 WBC (Bld) 4.8 % 0-[address] [facility] Neutrophil percentageOrdered By: Ashlyn Gates on 06-17-2024 Neutrophils/100 WBC (Bld) 65.6 % 47-70 [facility] Nucleated red blood cell per centageOrdered By: Ashlyn Gates on 06-17-2024 Nucleated RBC/100 WBC (Bld) [Ratio] 0 % 0-5 [facility] Platelet countOrdered By: Ra aroldo Gates on 06-17-2024 Platelets (Bld) [#/Vol] 300 10*3/uL 150-450 [facility] Potassium measurementOrdered By: Ashlyn Gates on 06-17-2024 Potassium [Moles/Vol] 4.0 mmol/L 3.5-5.1 [facility] RBC Auto (Bld) [#/Vol]Ordere d By: Ashlyn Gates on 06-17-2024 RBC (Bld) [#/Vol] 4.61 10*6/uL 4.2-5.4 [facility] Serum anion gap measurementO rdered By: Ashlyn Gates on 06-17-2024 Anion gap [Moles/Vol] 5 mmol/L 5-15 [facility] Serum globulin measurementOr dered By: Ashlyn Gates on 06-17-2024 Globulin (S) [Mass/Vol] 3.8 g/dL 2.2-4.[address] [facility] Serum or plasma alanine rodriguez otransferase (ALT) measurementOrdered By: Ashlyn Gates on 06-17-2024 ALT [Catalytic activity/Vol] 16 U/L 13-56 [facility] Serum or plasma albumin sarina urement (mass/volume)Ordered By: Ashlyn Gates on 06-17-2024 Albumin [Mass/Vol] 3.1 g/dL Low 3.2-5.0 [facility] Serum or plasma alkaline mayco sphatase measurementOrdered By: Ashlyn Gates on 06-17-2024 ALP [Catalytic activity/Vol] 95 U/L 45-117 [facility] Serum or plasma calcium sarina urement (mass/volume)Ordered By: Ashlyn Gates on 06-17-2024 Calcium [Mass/Vol] 8.9 mg/dL 8.5-10.1 [facility] Serum or plasma cholesterol measurement (mass/volume)Ordered By: Ashlyn Gates on 01-20-2025 Cholesterol [Mass/Vol] 228 mg/dL High <200 [facility] Comment on above: <200 mg/dL Desirable 200-240 mg/dL Borderline >240 mg/dL High Risk Serum or plasma creatinine m easurement (mass/volume)Ordered By: Ashlyn Gates on 06-17-2024 Creatinine [Mass/Vol] 0.66 mg/dL 0.55-1.02 [facility] Comment on above: The validity of the calculated GFR & GFRAA in patients over 70 years has not been determined. Clinical correlation is essential. Serum or plasma urea nitroge n measurement (mass/volume)Ordered By: Ashlyn Gates on 06-17-2024 Urea nitrogen [Mass/Vol] 13 mg/dL 7-18 [facility] Sodium levelOrdered By: Adrianna Gates on 06-17-2024 Sodium [Moles/Vol] 139 mmol/L 136-145 [facility] TIBCOrdered By: Ashlyn mendes on 06-17-2024 Total Iron Binding Capacity 408 ug/dL 250-450 [facility] Total proteinOrdered By: Renetta Gates on 06-17-2024 Protein [Mass/Vol] 6.9 g/dL 6.4-8.2 [facility] Triglycerides measurementOrd ered By: Ashlyn Gates on 06-17-2024 Triglyceride [Mass/Vol] 170 mg/dL <199 [facility] Comment on above: The drugs N-Acetylcy steine and Metamizole may falsely depress this assay.Serum Triglycerides Reference Interval Normal <150 mg/dL Borderline high 150 - 199 mg/dL High 200 - 499 mg/dL Very High > or = 500 mg/dL Very low density lipoprotein (VLDL) cholesterol measurementOrdered By: Ashlyn Gates on 06-17-2024 VLDL Cholesterol 34 mg/dL 5-40 [facility] Vitamin B12on 06-17-2024 Cobalamin (Vitamin B12) [Mass/Vol] 683 pg/mL Normal 211-911 [facility] Comment on above: Performed By: #### L 501.5421, L100.0100, L500.2500 #### [facility] [address] [place], [place], [id number] Vitamin B12 measurementOrder ed By: Ashlyn Gates on 06-17-2024 Cobalamin (Vitamin B12) [Mass/Vol] 683 pg/mL 211-911 [facility] White blood cell (WBC) count Ordered By: Ashlyn Yajaira on 06-17-2024 WBC (Bld) [#/Vol] 10.6 10*3/uL 4.4-11.0 [facility] ED Prov Noteon 01-21-2024 ED Prov Note [facility] Physician Note: NAME: Yemi Jc 28 y.o. CSN: [id number] PCP: Ashlyn Gates PA-C ED Course / [...] Result No acute fracture or traumatic malalignment. [employer] Workstation ID: [id number] XR Foot Right 3+ Views (Standard) Preliminary Result Subtle cortical irregularity at the base of the 5th proximal phalanx. Cannot exclude underlying nondisplaced fracture. Please correlate with point tenderness. No additi (more content not included)... [facility] XR ANKLE RIGHT 3+ VIEWS (STA NDARD)on [...] IMPRESSION: No acute fracture or traumatic malalignment. [employer] Workstation ID: [id number] Dictated by: STACY OSUNA on [place] Jan 21, 2024 1:45:19 PM EDT Transcribed by: MEENA HILARIO on [place] Jan 21, 2024 1:46:14 PM EDT Finalized by: STACY OSUNA on [place] Jan 21, 2024 8:45:08 PM EDT [facility] Comment on above: Order Comment: [...] correlate with point tenderness. No additional fractures. [employer] Workstation ID: [id number] Dictated by: STACY OSUNA on MonJan 21, 2024 1:48:47 PM EDT Transcribed by: MEENA HILARIO on MonJan 21, 2024 1:49:23 PM EDT Finalized by: STACY OSUNA on [place] Jan 21, 2024 8:47:41 PM EDT [facility] Comment on above: Order Comment: Injur y/Trauma or Illness?:Injury/Trauma How long have you had these symptoms (acute/chronic)?:Acute Reason for exam?:foot pain History of cancer?:n Surgeries, chemotherapy, or radiation?:n Type of Exam?:Initial Mechanism of injury?:missed 1 step while walking down stairs yesterday and rolled her right ankle No Panel Informationon 08-11 [facility] Work Phone: POCT BD Veritor Covid-19 Ag manually resultedon 08-12-2023 SARS-CoV-2 (COVID-19) Ag IA.rapid Ql (Resp) Positive Abnormal Presumptive negative test for SARS-CoV-2 (no antigen detected) [facility] Work Phone: POCT Influenza A/B manually resultedon 08-12-2023 POC Rapid Influenza A Negative Negative [facility] Work Phone: POC Rapid Influenza B Negative Negative [facility] Work Phone: SARS-CoV-2 (COVID-19) Ag IA. rapid Ql (Resp)on 08-12-2023 Interpretation and review of laboratory results Abnormal [facility] Work Phone: Absolute lymphocyte countOrd ered By: Ashlyn Gates on 05-17-2023 Lymphocytes Auto (Unsp spec) [#/Vol] 2.22 10*3/uL 0.83-4.51 [facility] Basophil percentageOrdered B y: Ashlyn Gates on 05-17-2023 Basophils/100 WBC (Bld) 0.6 % 0-1 [facility] Bilirubin [Mass/Vol] 0.40 mg/dL 0.20-1.00 [facility] Comment on above: For patients on eltr ombopag therapy, use of Dimension [place] TBIL is not recommended. Chloride [Moles/Vol] 106 mmol/L 98-107 [facility] Cholesterol [Mass/Vol] 198 mg/dL <200 [facility] Comment on above: <200 mg/dL Desirable 200-240 mg/dL Borderline >240 mg/dL High Risk Eosinophils/100 WBC (Bld) 1.9 % 0-5 [facility] Glucose [Mass/Vol] 119 mg/dL 74-106 [facility] Comment on above: Fasting Glucose resu lt from 100 to 125 mg/dL suggests IMPAIRED HOMEOSTASIS per A.D.A. criteria. Neutrophils (Bld) [#/Vol] 7.3 10*3/uL 2.0-7.7 [facility] Neutrophils/100 WBC (Bld) 71.2 % 47-70 [facility] Potassium [Moles/Vol] 4.3 mmol/L 3.5-5.1 [facility] Protein [Mass/Vol] 7.4 g/dL 6.4-8.2 [facility] Sodium [Moles/Vol] 137 mmol/L 136-145 [facility] Triglyceride [Mass/Vol] 86 mg/dL <[address] [facility] Comment on above: The drugs N-Acetylcy steine and Metamizole may falsely depress this assay.Serum Triglycerides Reference Interval Normal <150 mg/dL Borderline high 150 - 199 mg/dL High 200 - 499 mg/dL Very High > or = 500 mg/dL WBC (Bld) [#/Vol] 10.3 10*3/uL 4.4-11.0 [facility] Blood erythrocytes count (nu mber/volume)Ordered By: Ashlyn Gates on 05-17-2023 RBC (Bld) [#/Vol] 4.61 10*6/uL 4.2-5.4 [facility] Blood hemoglobin measurement (mass/volume)Ordered By: Ashlyn Gates on 05-17-2023 Hemoglobin (Bld) [Mass/Vol] 12.0 g/dL 12.0-15.0 [facility] Blood lymphocytes/100 leukoc ytesOrdered By: Ashlyn Gates on 05-17-2023 Lymphocytes/100 WBC (Bld) 21.6 % 19-41 [facility] Blood monocytes/100 leukocyt esOrdered By: Ashlyn Gates on 05-17-2023 Monocytes/100 WBC (Bld) 4.4 % 0-[address] [facility] Blood platelet mean volumeOr dered By: Ashlyn Gates on 05-17-2023 Platelet mean volume (Bld) [Entitic vol] 10.7 fL 6.2-12.0 [facility] Determination of erythrocyte mean corpuscular volume (MCV)Ordered By: Ashlyn Gates on 05-17-2023 MCV (RBC) [Entitic vol] 81.1 fL 81-[address] [facility] Hematocrit Auto (Bld) [Volum e fraction]Ordered By: Ashlyn Gates on 05-17-2023 Hematocrit (Bld) [Volume fraction] 37.4 % 37-47 [facility] Iron measurement (mass/mass) Ordered By: Ashlyn Gates on 05-17-2023 Iron (Unsp spec) [Mass/Mass] 52 ug/dL 50-170 [facility] - Chemistry and C hemistry - challengeOrdered By: Ashlyn Gates on 05-17-2023 ALP [Catalytic activity/Vol] 92 U/L 45-117 [facility] ALT [Catalytic activity/Vol] 34 U/L 13-56 [facility] CO2 [Moles/Vol] 30.0 mmol/L 21.0-32.0 [facility] Cobalamin (Vitamin B12) [Mass/Vol] 397 pg/mL 211-911 [facility] Globulin (S) [Mass/Vol] 3.8 g/dL 2.2-4.[address] [facility] Magnesium [Mass/Vol] 2.0 mg/dL 1.6-2.6 [facility] Urea nitrogen/Creatinine [Mass ratio] 16.0 mg/mg 10-20 [facility] Laboratory - Hematology and Cell countsOrdered By: Ashlyn Gates on 05-17-2023 Erythrocyte distribution width (RBC) [Entitic vol] 39.6 fL 35.1-43.9 [facility] Erythrocyte distribution width (RBC) [Ratio] 13.5 % 11.6-14.6 [facility] Immature granulocytes/100 WBC (Bld) 0.300 % 0.0-0.9 [facility] Comment on above: IG% - Immature Granu locytes (promyelocytes, myelocytes and metamyelocytes) > 1% indicates that a LEFT SHIFT is Present. MCH (RBC) [Entitic mass] 26.0 pg 27.0-32.0 [facility] Nucleated RBC/100 WBC (Bld) [Ratio] 0 % 0-5 [facility] MCHC Auto (RBC) [Mass/Vol]Or dered By: Ashlyn Gates on 05-17-2023 MCHC (RBC) [Mass/Vol] 32.1 g/dL 32-36 [facility] No Panel InformationOrdered By: Ashlyn Gates on 05-17-2023 Estimated GFR (MDRD) Amer 147 mL/min >60 [facility] Comment on above: GFR Calc Estimated GFR (MDRD) Non-Af Amer 122 mL/min >60 [facility] Comment on above: Non- GFR Calc Total Iron Binding Capacity 352 ug/dL 250-450 [facility] Platelets bldOrdered By: Renetta Gates on 05-17-2023 Platelets (Bld) [#/Vol] 327 10*3/uL 150-450 [facility] Serum or plasma albumin sarina urement (mass/volume)Ordered By: Ashlyn Gates on 05-17-2023 Albumin [Mass/Vol] 3.6 g/dL 3.2-5.0 [facility] Serum or plasma albumin/glob ulin mass ratioOrdered By: Ashlyn Gates on 05-17-2023 Albumin/Globulin [Mass ratio] 0.9 {ratio} 0.9-2.4 [facility] Serum or plasma calcium sarina urement (mass/volume)Ordered By: Ashlyn Gates on 05-17-2023 Calcium [Mass/Vol] 8.8 mg/dL 8.5-10.1 [facility] Serum or plasma cholesterol in HDL measurement (mass/volume)Ordered By: Ashlyn Gates on 05-17-2023 Cholesterol in HDL [Mass/Vol] 45 mg/dL >40 [facility] Comment on above: The drugs N-Acetylcy steine and Metamizole may falsely depress this assay. Reference Range HDL <40 mg/dL Low HDL Cholesterol HDL >or= 60 mg/dL High HDL Cholesterol Serum or plasma cholesterol in VLDL measurement (mass/volume)Ordered By: Ashlyn Gates on 05-17-2023 Cholesterol in VLDL [Mass/Vol] 17 mg/dL 5-40 [facility] Serum or plasma creatinine m easurement (mass/volume)Ordered By: Ashlyn Gates on 05-17-2023 Creatinine [Mass/Vol] 0.62 mg/dL 0.55-1.02 [facility] Comment on above: The validity of the calculated GFR & GFRAA in patients over 70 years has not been determined. Clinical correlation is essential. Serum or plasma ferritin juvenal surement (mass/volume)Ordered By: Ashlyn Gates on 05-17-2023 Ferritin [Mass/Vol] 22 ng/mL 8-252 [facility] Serum or plasma iron saturat ion measurement (mass fraction)Ordered By: Ashlyn Gates on 05-17-2023 Iron saturation [Mass fraction] 14.8 % 15.0-55.0 [facility] Serum or plasma low density lipoprotein (LDL) cholesterol measurement (mass/volume)Ordered By: Ashlyn Gates on 05-17-2023 Cholesterol in LDL [Mass/Vol] 136 mg/dL 0-130 [facility] Serum or plasma urea nitroge n measurement (mass/volume)Ordered By: Ashlyn Gates on 05-17-2023 Urea nitrogen [Mass/Vol] 10 mg/dL 7-18 [facility] Thin prep Papanicolaou smear with manual screeningOrdered By: Ashlyn Gates on 05-17-2023 Thin prep Papanicolaou smear with manual screening 20 U/L 15-37 [facility] Thin prep Papanicolaou smear with manual screening 1 5-15 [facility] Whole blood hemoglobin A1c/t otal hemoglobin ratio (mass fraction)Ordered By: Ashlyn Gates on 05-17-2023 HbA1c (Bld) [Mass fraction] 5.1 % 3.8-5.6 [facility] Comment on above: Normal < 5.7 [...] Colonoscopy History of Esophagogastroduodenosco py History of [place] tooth extraction Family History Family history of [...] Omeprazole 20 (more content not included)... 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 Is : no REVIEW [...] SIGNS: T PRBP SpO2O2(LPM) %FiO2 Method 18-Oct-2022 09:18:[id number] 98 MDM MDM/ED COURSE: Discussed Findings with: [...] ill patient: no Electronic Signatures: Kb Meyer (WATER FITNESS INSTRUCTOR-RESISTOR WINDER) (Signed 18-Oct-2022 09:40) Authored: ED Notes, HPI, PMH, ROS, PE, Results/Vital Signs, MDM/ED Course, Clinical Impression, Attestation, Chart Review, Scores Last Updated: 18-Oct-2022 09:40 by Kb Meyer (WATER FITNESS INSTRUCTOR-RESISTOR WINDER) [facility] Atypical perinuclear antineu trophil cytoplasmic antibodies measurementOrdered By: Mark Schroeder on 09-16-2022 Neutrophil cytoplasmic Ab.perinuclear.atypical IF (S) [Titer] <1:20 titer Neg:<1:20 [facility] Comment on above: The atypical pANCA p attern has been observed in asignificant percentage of patients with ulcerative colitis,primary sclerosing cholangitis and autoimmune hepatitis.Performed at: [facility] [address] [id number] Director: Zeeshan Carlton PhD, Phone: [phone] at: [facility] [id number] Director: Luz Ponce MD, Phone: [phone] Basophil percentageOrdered B y: Mark Schroeder on 09-16-2022 Basophil percentage < 0.2 AI 0.0-0.9 [facility] LDH [Catalytic activity/Vol] 178 U/L 84-246 [facility] Chocolate RASTOrdered By: Ra ladarius Schroeder on 09-16-2022 Chocolate IgE Qn (S) <0.10 kU/L Class 0 [facility] Comment on above: Performed at: [facility] [id number] Director: Zeeshan Carlton PhD, Phone: [phone] at: [facility] [id number] Director: Luz Ponce MD, Phone: [phone] EP PanelOrdered By: Mark Schroeder on 09-16-2022 Gastrointestinal pathogens panel PEARL+probe (Stl) [facility] Erythrocyte sedimentation ra teOrdered By: Mark Schroeder on 09-16-2022 ESR (Bld) [Velocity] 31 mm/h 0-30 [facility] Laboratory - Miscellaneous t estsOrdered By: Mark Schroeder on 09-16-2022 Service comment (Unsp spec) [Interp] Comment . [facility] Comment on above: Levels of Specific [...] 09-16-2022 Centromere B Antibody <0.2 AI 0.0-0.9 [facility] Endomysial IgA Antibody Negative Negative [facility] Immunoglobulin E 27 IU/mL 6-495 [facility] ROVING WEIGHT GAUGER Antibody <0.2 AI 0.0-0.9 [facility] [employer] Allergens (RAST) Negative . [facility] Comment on above: Allergens in this mi x are: Blue mussel Fish [place] Shrimp Tuna Serum DNA double strand anti body assay (units/volume)Ordered By: Mark Schroeder on 09-16-2022 DNA double strand Ab Qn (S) [IU]/mL 0-9 [facility] Comment on above: Negative <5 Equivoca l 5 - 9 Positive >9 Serum Ashley-1 antibody assay (u nits/volume)Ordered By: Mark Schroeder on 09-16-2022 Ashley-1 extractable nuclear Ab Qn (S) <0.2 AI 0.0-0.9 [facility] Serum Scl-70 extractable nuc lear antibody assay (units/volume)Ordered By: Mark Schroeder on 09-16-2022 SCL-70 extractable nuclear Ab Qn (S) <0.2 AI 0.0-0.9 [facility] Serum Hilario extractable nucl ear antibody detectionOrdered By: Mark Schroeder on 09-16-2022 Hilario extractable nuclear Ab Ql (S) <0.2 AI 0.0-0.9 [facility] Serum beef IgE antibody assa y (units/volume)Ordered By: Mark Schroeder on 09-16-2022 Beef IgE Qn (S) <0.10 kU/L Class 0 [facility] Serum classic neutrophil cyt oplasmic antibody assay (units/volume)Ordered By: Mark Schroeder on 09-16-2022 Neutrophil cytoplasmic Ab.classic Qn (S) <1:20 titer Neg:<1:20 [facility] Serum corn IgE antibody assa y (units/volume)Ordered By: Mark Schroeder on 09-16-2022 [place] IgE Qn (S) <0.10 kU/L Class 0 [facility] Serum cow milk IgE antibody assay (units/volume)Ordered By: Mark Schroeder on 09-16-2022 Cow milk IgE Qn (S) <0.10 kU/L Class 0 [facility] Serum or plasma C reactive p rotein measurement (mass/volume)Ordered By: Mark Schroeder on 09-16-2022 CRP [Mass/Vol] 29.80 mg/L 0.0-3.0 [facility] Comment on above: C-Reactive Protein ( CRP) provides useful information for thediagnosis, therapy and monitoring of inflammatory processesand associated diseases. For the evaluation of Relative Riskfor Cardiovascular Disease, a High Sensitivity CRP (HSCRP)should be ordered. Serum or plasma IgA measurem ent (mass/volume)Ordered By: Mark Schroeder on 09-16-2022 IgA [Mass/Vol] 142 mg/dL 87-352 [facility] Serum or plasma IgG measurem ent (mass/volume)Ordered By: Makrvamis Schroeder on 09-16-2022 IgG [Mass/Vol] 1007 mg/dL [phone] [facility] Serum or plasma IgM measurem ent (mass/volume)Ordered By: Mark Schroeder on 09-16-2022 IgM [Mass/Vol] 87 mg/dL 26-217 [facility] Serum peanut IgE antibody as say (units/volume)Ordered By: Mark Schroeder on 09-16-2022 Peanut IgE Qn (S) <0.10 kU/L Class 0 [facility] Serum perinuclear neutrophil cytoplasmic antibody titer by immunofluorescenceOrdered By: Mark Schroeder on 09-16-2022 Neutrophil cytoplasmic Ab.perinuclear IF (S) [Titer] <1:20 titer Neg:<1:20 [facility] Comment on above: The presence of posi tive fluorescence exhibiting P-ANCA orC-ANCA patterns alone is not specific for the diagnosis ofWegener's Granulomatosis (WG) or microscopic polyangiitis.Decisions about treatment should not be based solely onANCA IFA results. The International ANCA Group Consensusrecommends follow up testing of positive sera with both NV-3 and MPO-ANCA enzyme immunoassays. As many as 5% serumsamples are positive only by EIA. Ref. AM J Clin Bldglf1994;111:507-513. Serum pork IgE antibody assa y (units/volume)Ordered By: Mark Schroeder on 09-16-2022 Pork IgE Qn (S) <0.10 kU/L Class 0 [facility] Serum soybean IgE antibody a ssay (units/volume)Ordered By: Mark Schroeder on 09-16-2022 Soybean IgE Qn (S) <0.10 kU/L Class 0 [facility] Serum tissue transglutaminas e IgA antibody assay (units/volume)Ordered By: Mark Schroeder on 09-16-2022 tTG IgA Qn (S) <2 U/mL 0-3 [facility] Comment on above: Negative 0 - 3 Weak Positive 4 - 10 Positive >10 Tissue Transglutaminase (tTG) has been identified as the endomysial antigen. Studies have demonstr- ated that endomysial IgA antibodies have over 99% specificity for gluten sensitive enteropathy. Serum wheat IgE antibody ass ay (units/volume)Ordered By: Mark Schroeder on 09-16-2022 Wheat IgE Qn (S) <0.10 kU/L Class 0 [facility] Serum whole egg IgE antibody assay (units/volume)Ordered By: Mark Schroeder on 09-16-2022 Whole Egg IgE Qn (S) <0.10 kU/L Class 0 [facility] Stool lactoferrin detection by immunoassayOrdered By: Mark Schroeder on 09-16-2022 Lactoferrin IA Ql (Stl) [facility] Absolute lymphocyte countOrd ered By: Dr. Hernandez on 09-03-2022 Lymphocytes Auto (Unsp spec) [#/Vol] 2.15 10*3/uL 0.83-4.51 [facility] Basophil percentageOrdered B y: Dr. Hernandez on 09-03-2022 Basophils/100 WBC (Bld) 0.5 % 0-[address] [facility] Bilirubin [Mass/Vol] 0.30 mg/dL 0.20-1.00 [facility] Comment on above: For patients on eltr ombopag therapy, use of Dimension [place] TBIL is not recommended. Chloride [Moles/Vol] 110 mmol/L 98-107 [facility] Eosinophils/100 WBC (Bld) 3.8 % 0-5 [facility] Glucose [Mass/Vol] 87 mg/dL 74-106 [facility] Neutrophils (Bld) [#/Vol] 3.1 10*3/uL 2.0-7.7 [facility] Neutrophils/100 WBC (Bld) 51.0 % 47-70 [facility] Potassium [Moles/Vol] 3.7 mmol/L 3.5-5.1 [facility] Comment on above: Slight Hemolysis, Re sult may be falsely increased. Protein [Mass/Vol] 6.8 g/dL 6.4-8.2 [facility] Sodium [Moles/Vol] 140 mmol/L 136-145 [facility] WBC (Bld) [#/Vol] 6.0 10*3/uL 4.4-11.0 [facility] Beta hCG serum qualOrdered B y: Dr. Hernandez on 09-03-2022 Beta HCG ( test) Ql Negative [facility] Blood erythrocytes count (nu mber/volume)Ordered By: Dr. Hernandez on 09-03-2022 RBC (Bld) [#/Vol] 4.61 10*6/uL 4.2-5.4 [facility] Blood hemoglobin measurement (mass/volume)Ordered By: Dr. Hernandez on 09-03-2022 Hemoglobin (Bld) [Mass/Vol] 12.4 g/dL 12.0-15.0 [facility] Blood lymphocytes/100 leukoc ytesOrdered By: Dr. Hernandez on 09-03-2022 Lymphocytes/100 WBC (Bld) 35.7 % 19-41 [facility] Blood monocytes/100 leukocyt esOrdered By: Dr. Hernandez on 09-03-2022 Monocytes/100 WBC (Bld) 8.8 % 0-[address] [facility] Blood platelet mean volumeOr dered By: Dr. Hernandez on 09-03-2022 Platelet mean volume (Bld) [Entitic vol] 10.9 fL 6.2-12.0 [facility] Determination of erythrocyte mean corpuscular volume (MCV)Ordered By: Dr. Hernandez on 09-03-2022 MCV (RBC) [Entitic vol] 80.9 fL 81-[address] [facility] Direct bilirubinOrdered By: Dr. Hernandez on 09-03-2022 Bilirubin.direct [Mass/Vol] 0.05 mg/dL 0.00-0.30 [facility] Hematocrit Auto (Bld) [Volum e fraction]Ordered By: Dr. Hernandez on 09-03-2022 Hematocrit (Bld) [Volume fraction] 37.3 % 37-47 [facility] Laboratory - Chemistry and C hemistry - challengeOrdered By: Dr. Hernandez on 09-03-2022 ALP [Catalytic activity/Vol] 83 U/L 45-117 [facility] ALT [Catalytic activity/Vol] 56 U/L 13-56 [facility] CO2 [Moles/Vol] 24.0 mmol/L 21.0-32.0 [facility] Globulin (S) [Mass/Vol] 3.9 g/dL 2.2-4.[address] [facility] Lipase [Catalytic activity/Vol] 51 U/L 73-393 [facility] Urea nitrogen/Creatinine [Mass ratio] 17.1 mg/mg 10-20 [facility] Laboratory - Hematology and Cell countsOrdered By: Dr. Hernandez on 09-03-2022 Erythrocyte distribution width (RBC) [Entitic vol] 39.2 fL 35.1-43.9 [facility] Erythrocyte distribution width (RBC) [Ratio] 13.4 % 11.6-14.6 [facility] Immature granulocytes/100 WBC (Bld) 0.200 % 0.0-0.9 [facility] Comment on above: IG% - Immature Granu locytes (promyelocytes, myelocytes and metamyelocytes) > 1% indicates that a LEFT SHIFT is Present. MCH (RBC) [Entitic mass] 26.9 pg 27.0-32.0 [facility] Nucleated RBC/100 WBC (Bld) [Ratio] 0 % 0-5 [facility] MCHC Auto (RBC) [Mass/Vol]Or dered By: Dr. Hernandez on 09-03-2022 MCHC (RBC) [Mass/Vol] 33.2 g/dL 32-36 [facility] No Panel InformationOrdered By: Dr. Hernandez on 09-03-2022 Estimated Creatinine Clearance Calc 119.86 ml/min [facility] Estimated GFR (MDRD) Amer 143 mL/min >60 [facility] Comment on above: GFR Calc Estimated GFR (MDRD) Non-Af Amer 118 mL/min >60 [facility] Comment on above: Non- GFR Calc Platelets bldOrdered By: Dr. Hernandez on 09-03-2022 Platelets (Bld) [#/Vol] 272 10*3/uL 150-450 [facility] Serum or plasma albumin sarina urement (mass/volume)Ordered By: Dr. Hernandez on 09-03-2022 Albumin [Mass/Vol] 2.9 g/dL 3.2-5.0 [facility] Serum or plasma calcium sarina urement (mass/volume)Ordered By: Dr. Hernandez on 09-03-2022 Calcium [Mass/Vol] 8.3 mg/dL 8.5-10.1 [facility] Serum or plasma creatinine m easurement (mass/volume)Ordered By: Dr. Hernandez on 09-03-2022 Creatinine [Mass/Vol] 0.64 mg/dL 0.55-1.02 [facility] Comment on above: The validity of the calculated GFR & GFRAA in patients over 70 years has not been determined. Clinical correlation is essential. Serum or plasma urea nitroge n measurement (mass/volume)Ordered By: Dr. Hernandez on 09-03-2022 Urea nitrogen [Mass/Vol] 11 mg/dL 7-18 [facility] Thin prep Papanicolaou smear with manual screeningOrdered By: Dr. Hernandez on 09-03-2022 Thin prep Papanicolaou smear with manual screening 38 U/L 15 [facility] Comment on above: Slight Hemolysis, Re sult may be falsely increased. Thin prep Papanicolaou smear with manual screening 6 5-15 [facility] Established Visit (Pain Medi cine)on 07-18-2022 [...] WOMENS CARE (more content not included)... Normal [facility] Laboratory - Microbiology an d Antimicrobial susceptibilityon 05-18-2022 SARS-CoV-2 (COVID-19) RNA PEARL+probe Ql (Unsp spec) Not detected [facility] No Panel Informationon 05-18 POC Nasal Swab Influenza A,B Detected [facility] POC Nasal Swab RSV Not detected [facility] Office Visit (Internal Medic ine)on 05-03-2022 Follow-up [...] 5;For: Dyspepsia; INES = N; Sent To: [facility] JESSICA (generalized anxiety disorder) Renew: busPIRone HCl - 30 MG Oral Tablet; TAKE 1 TABLET TWICE DAILY Rx By: Ashlyn Gates; Dispense: 30 Days ; #:60 Tablet; Refill: 5;For: JESSICA (generalized anxiety disorder); INES = N; Sent To: [facility] Renew: Citalopram Hydrobromide 40 MG Oral Tablet (CeleXA); take 1/2 tab dailyx 2 weeks then 1 tab po daily Rx By: Ashlyn Gates; Dispense: 0 Days ; #:30 Tablet; Refill: 5;For: JESSICA (generalized anxiety disorder); INES = N; Sent To: [facility] Low vitamin B12 level Administered: Cyanocobalamin 1000 MCG/ML Injection Solution Rx By: Ashlyn Gates;For: Low vitamin B12 level; Dose of 1 ML; Intramuscular; INES = N; Administered by: Yumiko Ayala BID MANAGER: 05/03/2022 3:12:00 PM; Last Updated By: Yumiko Ayala; 05/03/2022 3:13:02 PM Patient Discussion/Summary f/u in 6 mo with labs at [facility] fasting CBC - glucose intolerance CMP hgba1c [...] on/off adipex 3 Preventative testing PAP - [facility] - last exam was september mammo - [...] (generalized an (more content not included)... Normal [facility] Tobacco Screening.on 022 Fall risk assessment a) No falls within the last year [facility] Work Phone: Tobacco use status [facility]PH[facility] b) No [facility] Work Phone: Absolute lymphocyte counton 05-02-2022 Lymphocytes Auto (Unsp spec) [#/Vol] 3.18 10*3/uL 0.83-4.51 [facility] Work Phone: Basophil percentageon 2021 Basophils/100 WBC (Bld) 0.9 % 0-[address] [facility] Work Phone: Bilirubin [Mass/Vol] 0.30 mg/dL 0.20-1.00 [facility] Work Phone: Comment on above: For patients on eltr ombopag therapy, use of Dimension [place] TBIL is not recommended. Chloride [Moles/Vol] 104 mmol/L 98-107 [facility] Work Phone: Cholesterol [Mass/Vol] 235 mg/dL <200 [facility] Work Phone: Comment on above: <200 mg/dL Desirable 200-240 mg/dL Borderline >240 mg/dL High Risk Eosinophils/100 WBC (Bld) 2.7 % 0-5 [facility] Work Phone: Glucose [Mass/Vol] 98 mg/dL 74-106 [facility] Work Phone: [phone] Neutrophils (Bld) [#/Vol] 5.4 10*3/uL 2.0-7.7 [facility] Work Phone: Neutrophils/100 WBC (Bld) 57.5 % 47-70 [facility] Work Phone: Potassium [Moles/Vol] 3.8 mmol/L 3.5-5.1 [facility] Work Phone: [phone] Protein [Mass/Vol] 7.0 g/dL 6.4-8.2 [facility] Work Phone: Sodium [Moles/Vol] 138 mmol/L 136-145 [facility] Work Phone: Triglyceride [Mass/Vol] 169 mg/dL <[address] [facility] Work Phone: Comment on above: The drugs N-Acetylcy steine and Metamizole may falsely depress this assay.Serum Triglycerides Reference Interval Normal <150 mg/dL Borderline high 150 - 199 mg/dL High 200 - 499 mg/dL Very High > or = 500 mg/dL WBC (Bld) [#/Vol] 9.3 10*3/uL 4.4-11.0 [facility] Work Phone: Blood erythrocytes count (nu mber/volume)on 05-02-2022 RBC (Bld) [#/Vol] 4.71 10*6/uL 4.2-5.4 [facility] Work Phone: Blood hemoglobin measurement (mass/volume)on 05-02-2022 Hemoglobin (Bld) [Mass/Vol] 12.5 g/dL 12.0-15.0 [facility] Work Phone: Blood lymphocytes/100 leukoc yteson 05-02-2022 Lymphocytes/100 WBC (Bld) 34.0 % 19-41 [facility] Work Phone: Blood monocytes/100 leukocyt eson 05-02-2022 Monocytes/100 WBC (Bld) 4.7 % 0-[address] [facility] Work Phone: Blood platelet mean volumeon 05-02-2022 Platelet mean volume (Bld) [Entitic vol] 11.4 fL 6.2-12.0 [facility] Work Phone: Determination of erythrocyte mean corpuscular volume (MCV)on 05-02-2022 MCV (RBC) [Entitic vol] 80.7 fL 81-[address] [facility] Work Phone: Hematocrit Auto (Bld) [Volum e fraction]on 05-02-2022 Hematocrit (Bld) [Volume fraction] 38.0 % 37-47 [facility] Work Phone: Iron measurement (mass/mass) on 05-02-2022 Iron (Unsp spec) [Mass/Mass] 83 ug/dL 50-170 [facility] Work Phone: Laboratory - Chemistry and C hemistry - challengeon 05-02-2022 ALP [Catalytic activity/Vol] 74 U/L 45-117 [facility] Work Phone: ALT [Catalytic activity/Vol] 21 U/L 13-56 [facility] Work Phone: CO2 [Moles/Vol] 26.0 mmol/L 21.0-32.0 [facility] Work Phone: Cobalamin (Vitamin B12) [Mass/Vol] 454 pg/mL 211-911 [facility] Work Phone: Globulin (S) [Mass/Vol] 4.2 g/dL 2.2-4.[address] [facility] Work Phone: Urea nitrogen/Creatinine [Mass ratio] 23.1 mg/mg 10-20 [facility] Work Phone: Laboratory - Hematology and Cell countson 05-02-2022 Erythrocyte distribution width (RBC) [Entitic vol] 39.4 fL 35.1-43.9 [facility] Work Phone: Erythrocyte distribution width (RBC) [Ratio] 13.5 % 11.6-14.6 [facility] Work Phone: Immature granulocytes/100 WBC (Bld) 0.200 % 0.0-0.9 [facility] Work Phone: Comment on above: IG% - Immature Granu locytes (promyelocytes, myelocytes and metamyelocytes) > 1% indicates that a LEFT SHIFT is Present. MCH (RBC) [Entitic mass] 26.5 pg 27.0-32.0 [facility] Work Phone: Nucleated RBC/100 WBC (Bld) [Ratio] 0 % 0-5 [facility] Work Phone: MCHC Auto (RBC) [Mass/Vol]on 05-02-2022 MCHC (RBC) [Mass/Vol] 32.9 g/dL 32-36 [facility] Work Phone: No Panel Informationon 05-02 Estimated GFR (MDRD) Amer 167 mL/min >60 [facility] Work Phone: Comment on above: GFR Calc Estimated GFR (MDRD) Non-Af Amer 138 mL/min >60 [facility] Work Phone: Comment on above: Non- GFR Calc Total Iron Binding Capacity 388 ug/dL 250-450 [facility] Work Phone: Platelets bldon 05-02-2022 Platelets (Bld) [#/Vol] 347 10*3/uL 150-450 [facility] Work Phone: Serum or plasma albumin sarina urement (mass/volume)on 05-02-2022 Albumin [Mass/Vol] 2.8 g/dL 3.2-5.0 [facility] Work Phone: Serum or plasma albumin/glob ulin mass ratioon 05-02-2022 Albumin/Globulin [Mass ratio] 0.7 {ratio} 0.9-2.4 [facility] Work Phone: Serum or plasma calcium sarina urement (mass/volume)on 05-02-2022 Calcium [Mass/Vol] 8.4 mg/dL 8.5-10.1 [facility] Work Phone: Serum or plasma cholesterol in HDL measurement (mass/volume)on 05-02-2022 Cholesterol in HDL [Mass/Vol] 59 mg/dL >40 [facility] Work Phone: Comment on above: The drugs N-Acetylcy steine and Metamizole may falsely depress this assay. Reference Range HDL <40 mg/dL Low HDL Cholesterol HDL >or= 60 mg/dL High HDL Cholesterol Serum or plasma cholesterol in VLDL measurement (mass/volume)on 05-02-2022 Cholesterol in VLDL [Mass/Vol] 34 mg/dL 5-40 [facility] Work Phone: Serum or plasma creatinine m easurement (mass/volume)on 05-02-2022 Creatinine [Mass/Vol] 0.56 mg/dL 0.55-1.02 [facility] Work Phone: Comment on above: The validity of the calculated GFR & GFRAA in patients over 70 years has not been determined. Clinical correlation is essential. Serum or plasma ferritin juvenal surement (mass/volume)on 05-02-2022 Ferritin [Mass/Vol] 31 ng/mL 8-252 [facility] Work Phone: Serum or plasma low density lipoprotein (LDL) cholesterol measurement (mass/volume)on 05-02-2022 Cholesterol in LDL [Mass/Vol] 142 mg/dL 0-130 [facility] Work Phone: Serum or plasma urea nitroge n measurement (mass/volume)on 05-02-2022 Urea nitrogen [Mass/Vol] 13 mg/dL 7-18 [facility] Work Phone: Thin prep Papanicolaou smear with manual screeningon 05-02-2022 Thin prep Papanicolaou smear with manual screening 8 U/L 15-37 [facility] Work Phone: Thin prep Papanicolaou smear with manual screening 8 5-15 [facility] Work Phone: GROUP A STREP, PCRon 11-14-2 022 S. pyogenes Ag Ql (Throat) Not detected See Below [facility] Work Phone: Comment on above: SOURCE: ThroatRefere nce Range: Not Detected This test was performed utilizing an FDA-cleared rapid nucleic acid amplification by PCR to qualitatively detect Group A Streptococci from throat swab specimens without the need for culture confirmation of negative results. GROUP A STREP,PCRon 04-11-20 22 GROUP A STREP,PCR Not detected Normal Not Detected [facility] Comment on above: Result Comment: This test was performed utilizing an FDA-cleared rapid nucleic acid amplification by PCR to qualitatively detect Group A Streptococci from throat swab specimens without the need for culture confirmation of negative results. Performed By: #### G APC1 #### [place] [address] Lab Specimen Source Throat Normal 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 Electronic Signatures: Kb Meyer (WATER FITNESS INSTRUCTOR-RESISTOR WINDER) (Signed 12-Apr-2022 09:08) Authored: ED Notes, HPI, PMH, ROS, PE, Results/Vital Signs, MDM/ED Course, Clinical Impression, Attestation, Chart Review, Scores Last Updated: 12-Apr-2022 09:08 by Kb Meyer (WATER FITNESS INSTRUCTOR-RESISTOR WINDER) [facility] Established Visit (Pain Medi cine)on 01-25-2022 Established [...] need a RF on tizanidine send to [facility]. This is a 26-year-old female here for [...] mid way. Sensory/ Motor: Numbness, Pins and [place] and Bilat lower legs at ankles, feet [...] Colonoscopy History of Esophagogastroduodenosco py History of [place] tooth extraction Family History Family history of [...] mellitus (V18.0 (more content not included)... Normal [employer] Tobacco Screening.on 022 Adult depression screening assessment No [facility] Work Phone: Fall risk assessment a) No falls within the last year [facility] Work Phone: Tobacco use status [facility] b) No M [facility] Work Phone: [phone] Tobacco Screening.on 022 Fall risk assessment a) No falls within the last year [facility] Work Phone: Tobacco use status [facility] b) No M [facility] Work Phone: Tobacco Screening.on 021 Fall risk assessment a) No falls within the last year [facility] Work Phone: Tobacco use status [facility] b) No M [facility] Work Phone: Tobacco Screening.on 021 Fall risk assessment a) No falls within the last year [facility] Work Phone: Tobacco use status [facility] b) No M [facility] Work Phone: No Panel Informationon 05-07 [email or web address]?RetrieveTestByDateTim e?EfasyoyXR=[id number]&Da te=03-09-2021&Time=01%3a 07%3a34%3a00&TestType=EC G&Site=14&OutputType=PDF &Ext=PDF [facility] Work Phone: Please see physicia n note for formal interpretation confirmed by Scribe [facility] Work Phone: Normal [facility] Work Phone: [phone] [facility] Work Phone: [phone] [facility] Work Phone: [phone] [facility] Work Phone: [phone] [facility] Work Phone: 13 1 [facility] Work Phone: 14 1 [facility] Work Phone: 19 1 [facility] Work Phone: 75 1 [facility] Work Phone: [phone] [facility] Work Phone: [phone] [facility] Work Phone: [phone] 76 1 [facility] Work Phone: [phone] 160 1 [facility] Work Phone: [phone] [facility] Work Phone: Radiologyon 05-07-2021 XR Chest 2 Views Please click on the link to view the study images Normal [facility] Work Phone: Tobacco Screening.on 021 Fall risk assessment a) No falls within the last year [facility] Work Phone: Tobacco use status CP b) No M [facility] Work Phone: Hemoglobin A1Con 03-24-2021 Glucose [Mass/Vol] 103 mg/dL [facility] Work Phone: HbA1c (Bld) [Mass fraction] 5.2 % [facility] Work Phone: Comment on above: Diagnosis of Diabete s-Adults Non-Diabetic: < or = 5.6% Increased risk for developing diabetes: 5.7-6.4% Diagnostic of diabetes: > or = 6.5%. Monitoring of Diabetes Age (y) Therapeutic Goal (%) Adults: >18 <7.0 Pediatrics: 13-18 <7.5 7-12 <8.0 0- 6 7.5-8.5 [employer]. Diabetes Care 33(S1), May 2009. Laboratory - Chemistry and C hemistry - challengeon 03-24-2021 Albumin BCP dye [Mass/Vol] 3.6 g/dL 3.4 - 5.0 [facility] Work Phone: ALP [Catalytic activity/Vol] 86 U/L 33 - 110 [facility] Work Phone: ALT With P-5'-P [Catalytic activity/Vol] 13 U/L 7 - 45 [facility] Work Phone: Comment on above: Patients treated wit h Sulfasalazine may generate falsely decreased results for ALT. Anion gap [Moles/Vol] 12 mmol/L 10 - 20 [facility] Work Phone: AST With P-5'-P [Catalytic activity/Vol] 9 U/L 9 - 39 [facility] Work Phone: Bilirubin [Mass/Vol] 0.4 mg/dL 0.0 - 1.2 [facility] Work Phone: Calcium [Mass/Vol] 9.0 mg/dL 8.6 - 10.3 [facility] Work Phone: Chloride [Moles/Vol] 106 mmol/L 98 - 107 [facility] Work Phone: CO2 [Moles/Vol] 23 mmol/L 21 - 32 [facility] Work Phone: Creatinine [Mass/Vol] 0.54 mg/dL See Below [facility] Work Phone: Comment on above: Reference Range: 0.5 0 - 1.05 Glucose [Mass/Vol] 79 mg/dL 74 - 99 [facility] Work Phone: Potassium [Moles/Vol] 4.0 mmol/L 3.5 - 5.3 [facility] Work Phone: Protein [Mass/Vol] 6.8 g/dL 6.4 - 8.2 [facility] Work Phone: Sodium [Moles/Vol] 137 mmol/L 136 - 145 [facility] Work Phone: Urea nitrogen [Mass/Vol] 11 mg/dL 6 - 23 [facility] Work Phone: Lipid Panelon 03-24-2021 Cholesterol [Mass/Vol] 223 mg/dL above hig h threshold 0 - 199 [facility] Work Phone: Comment on above: . [...] dosing. Cholesterol in HDL [Mass/Vol] 57.0 mg/dL [facility] Work Phone: Comment on above: . AGE VERY LOW LOW N ORMAL HIGH 0-19 Y < 35 < 40 40-45 ---- 20-24 Y ---- < 40 >45 ---- >24 Y ---- < 40 40-60 >60. Cholesterol in LDL [Mass/Vol] 138 mg/dL above high threshold 0 - 119 [facility] Work Phone: Comment on above: . NEAR BORD AGE RONALD RABLE OPTIMAL HIGH HIGH VERY HIGH 0-19 Y 0 - 109 --- 110-129 >/= 130 ---- 20-24 Y 0 - 119 --- 120-159 >/= 160 ---- >24 Y 0 - 99 100-129 130-159 160-189 >/=190. Cholesterol.total/Carmel sterol in HDL [Mass ratio] 3.9 {ratio} [facility] Work Phone: Comment on above: REF VALUESDESIRABLE < 3.4HIGH RISK > 5.0 Triglyceride [Mass/Vol] 138 mg/dL 0 - 149 [facility] Work Phone: Comment on above: . AGE [...] Lipid Panel 28 mg/dL 0 - 40 [facility] Work Phone: No Panel Informationon 03-24 >60 >60 [facility] Work Phone: Comment on above: CALCULATIONS OF SÁNCHEZ MATED GFR ARE PERFORMED USING THE MDRD STUDY EQUATION FOR THE IDMS-TRACEABLE CREATININE METHODS. CLIN CHEM 2007;53:766-72 Vitamin B12, Serumon 021 Cobalamin (Vitamin B12) [Mass/Vol] 437 pg/mL 211 - 911 [facility] Work Phone: MRI L Spine without Contrast on 12-25-2020 MR Lumbar spine WO contrast [facility] Work Phone: POCT URINALYSIS DIPSTICK AUT OMATED W/O SCOPOrdered By: Zenia Falcon on 12-02-2020 Amorphous sediment LM Ql (Urine sed) [facility] Appearance (U) cloudy [facility] Bacteria LM Ql (Urine sed) [facility] Bilirubin Ql (U) Negative [facility] Casts LM.LPF (Urine sed) [#/Area] [facility] Color (U) brown [facility] Crystals LM Nom (Urine sed) [facility] Epithelial cells.squamous LM.HPF (Urine sed) [#/Area] [facility] Flow cytometry specialist review Logan (Unsp spec) [Interp] [facility] Glucose Auto test strip (U) [Mass/Vol] Negative mg/dL [facility] Ketones [Mass/Vol] Negative mg/dL [facility] Leukocyte esterase Qn (U) [facility] Leukocyte esterase Test strip Ql (U) trace [facility] Nitrite Ql (U) Negative [facility] pH (U) 5.5 [pH] [facility] Protein Ql (U) 100 mg/dL [facility] RBC LM.HPF (Urine sed) [#/Area] [facility] RBC Ql (U) large [facility] Specific gravity (U) [Rel density] >=1.030 [facility] Transitional cells LM Ql (Urine sed) [facility] Urobilinogen Qn (U) 0.2 [facility] WBC LM.HPF (Urine sed) [#/Area] [facility] Internal controls OK [facility] Metabolic Panelon 09-18-2019 ALP [Catalytic activity/Vol] 80 U/L 33 - 110 [facility] Work Phone: Anion gap [Moles/Vol] 10 mmol/L 10 - 20 [facility] Work Phone: Bilirubin [Mass/Vol] 0.4 mg/dL 0.0 - 1.2 [facility] Work Phone: Calcium [Mass/Vol] 8.7 mg/dL 8.6 - 10.3 [facility] Work Phone: Chloride [Moles/Vol] 107 mmol/L 98 - 107 [facility] Work Phone: CO2 [Moles/Vol] 25 mmol/L 21 - 32 [facility] Work Phone: Creatinine [Mass/Vol] 0.54 mg/dL See Below [facility] Work Phone: Comment on above: Reference Range: 0.5 0 - 1.05 Glucose [Mass/Vol] 109 mg/dL above high threshold 74 - 99 [facility] Work Phone: Potassium [Moles/Vol] 4.1 mmol/L 3.5 - 5.3 [facility] Work Phone: Protein [Mass/Vol] 6.7 g/dL 6.4 - 8.2 [facility] Work Phone: Sodium [Moles/Vol] 138 mmol/L 136 - 145 [facility] Work Phone: Urea nitrogen [Mass/Vol] 14 mg/dL 6 - 23 [facility] Work Phone: Otheron 09-18-2019 Albumin BCP dye [Mass/Vol] 3.7 g/dL 3.4 - 5.0 [facility] Work Phone: ALT With P-5'-P [Catalytic activity/Vol] 12 U/L 7 - 45 [facility] Work Phone: Comment on above: Patients treated wit h Sulfasalazine may generate falsely decreased results for ALT. AST With P-5'-P [Catalytic activity/Vol] 11 U/L 9 - 39 [facility] Work Phone: >60 >60 [facility] Work Phone: Comment on above: CALCULATIONS OF SÁNCHEZ MATED GFR ARE PERFORMED USING THE MDRD STUDY EQUATION FOR THE IDMS-TRACEABLE CREATININE METHODS. CLIN CHEM 2007;53:766-72 T[facility] - [facility] Free T4 [Mass/Vol] 0.65 ng/dL See Below [facility] Work Phone: Comment on above: Reference Range: 0.6 1 - 1.12 Thyroxine Free testing is performed using different testing methodology at [facility] than at other [facility]. Direct result comparisons should only be [...] draw. TSH - Thyroid Stimulating Ho rmone, Serumon 09-18-2019 TSH Qn 3.68 {mIU/L} See Below [facility] Work Phone: Comment on above: Reference Range: 0.4 4 - 3.98 Note new pediatric reference range as of 08/01/2019. TSH testing is performed using different testing methodology at [facility] than at other [facility] hospitals. Direct result comparisons should only be made within the same method. Vitamin B12, Serumon 020 Cobalamin (Vitamin B12) [Mass/Vol] 212 pg/mL 211 - 911 [facility] Work Phone: BMPon 09-07-2018 Anion gap molar conc 10 mmol/L Normal 10-20 [facility] Comment on above: Performed By: #### 2 [id number] #### JEAN CARLOS RemHemo [address] [place] [address] Calcium mass conc 8.6 mg/dL Normal 8.6-10.3 [facility] Comment on above: Performed By: #### 2 [id number] #### JEAN CARLOS RemHemo [address] [place] [address] Chloride molar conc 106 mmol/L Normal 98-107 [facility] Comment on above: Performed By: #### 2 [id number] #### JEAN CARLOS RemHemo [address] [place] [address] CO2 molar conc 25.0 mmol/L Normal 21.0-32.0 [facility] Comment on above: Performed By: #### 2 [id number] #### JEAN CARLOS RemHemo [address] [place] [address] Creatinine mass conc 0.6 mg/dL Normal 0.5-1.1 [facility] Comment on above: Performed By: #### 2 [id number] #### JEAN CARLOS RemHemo [address] [place] [address] Glucose mass conc 100 mg/dL High 70-99 [facility] Comment on above: Performed By: #### 2 [id number] #### JEAN CARLOS RemHemo [address] [place] [address] Potassium molar conc 4.0 mmol/L Normal 3.5-5.3 [facility] Comment on above: Performed By: #### 2 [id number] #### JEAN CARLOS RemHemo [address] [place] [address] Sodium molar conc 137 mmol/L Normal 136-145 [facility] Comment on above: Performed By: #### 2 [id number] #### JEAN CARLOS BunnHemo [address] [place] [id number] Urea nitrogen mass conc 13 mg/dL Normal 6-23 [facility] Comment on above: Performed By: #### 2 [id number] #### JEAN CARLOS BunnHemo [address] [place] [id number] Urea nitrogen/Creatinine mass ratio 21.7 ratio Normal 5.4-30.0 [facility] Comment on above: Performed By: #### 2 [id number] #### JEAN CARLOS BunnHemo [facility] [place] [address] [id number] 09-07-2018 Hemoglobin A1c/Hemoglobin.total mass fraction (Bld) 5.1 % Normal 4.0-6.3 [facility] Comment on above: Performed By: #### 2 [id number] #### JEAN CARLOS Rodriguezo [address] [place] [address] eGFRon 09-07-2018 GFR/1.73 sq M predicted among non-blacks MDRD vol rate/area (S/P/Bld) mL/min/{1.73_m2} Normal [facility] Comment on above: Order Comment: Order added by Discern Expert. Performed By: #### 2 [id number] #### JEAN CARLOS BunnHemo [address] [place], [place] [id number] Auto Diffon 06-22-2018 Basophils #/vol (Bld) 0.1 E3/mcL Normal 0.0-0.2 [facility] Comment on above: Order Comment: Order Added by Discern Expert. Performed By: #### 2 [id number] #### JEAN CARLOS BunnHemo [address] [place] [phone] Basophils/100 WBC (Bld) 0.8 % Normal 0.0-2.0 [facility] Comment on above: Order Comment: Order Added by Discern Expert. Performed By: #### 2 [id number] #### JEAN CARLOS BunnHemo [address] [place] [phone] Eos Absolute 0.2 E3/mcL Normal 0.0-0.7 [facility] Comment on above: Order Comment: Order Added by Discern Expert. Performed By: #### 2 [id number] #### JEAN CARLOS RemHemo [address] [place] [address] Eosinophils/100 WBC (Bld) 2.6 % Normal 0.0-11.0 [facility] Comment on above: Order Comment: Order Added by Discern Expert. Performed By: #### 2 [id number] #### JEAN CARLOS RemHemo [address] [place] [address] Lymphocytes #/vol (Bld) 2.5 E3/mcL Normal 1.2-3.4 [facility] Comment on above: Order Comment: Order Added by Discern Expert. Performed By: #### 2 [id number] #### JEAN CARLOS RemHemo [address] [place] [address] Lymphocytes/100 WBC (Bld) 27.2 % Normal 20.0-55.0 [facility] Comment on above: Order Comment: Order Added by Discern Expert. Performed By: #### 2 [id number] #### JEAN CARLOS RemHemo [address] [place] [address] Patrick Absolute 0.5 E3/mcL Normal 0.0-0.7 [facility] Comment on above: Order Comment: Order Added by Discern Expert. Performed By: #### 2 [id number] #### JEAN CARLOS BunnHemo [address] [place] [address] Monocytes/100 WBC (Bld) 5.1 % Normal 0.0-10.0 [facility] Comment on above: Order Comment: Order Added by Discern Expert. Performed By: #### 2 [id number] #### JEAN CARLOS RemHemo [address] [place] [address] Neutro Absolute 6.0 E3/mcL Normal 1.4-6.5 [facility] Comment on above: Order Comment: Order Added by Discern Expert. Performed By: #### 2 [id number] #### JEAN CARLOS RemHemo [address] [place] [address] Neutro Auto 64.3 % Normal 37.0-75.0 [facility] Comment on above: Order Comment: Order Added by Discern Expert. Performed By: #### 2 [id number] #### JEAN CARLOS RemHemo [address] [place] [phone] CBC w/ Auto Diffon Erythrocyte distribution width Ratio (RBC) 14.6 % High 11.5-14.5 [facility] Comment on above: Performed By: #### 2 [id number] #### JEAN CARLOS BunnHemo [facility] [place] [phone] Hematocrit Volume Fraction (Bld) 37.5 % Normal 36.0-48.0 [facility] Comment on above: Performed By: #### 2 [id number] #### JEAN CARLOS BunnHemo [facility] [place] [phone] Hemoglobin mass conc (Bld) 12.5 g/dL Normal 12.0-16.0 [facility] Comment on above: Performed By: #### 2 [id number] #### JEAN CARLOS BunnHemo [address] [place], [place] [phone] MCH Entitic mass (RBC) 27.3 pg Normal 27.0-31.0 [facility] Comment on above: Performed By: #### 2 139696 #### JEAN CARLOS BunnHemo [address] [place], [place] [address] MCHC mass conc (RBC) 33.4 g/dL Normal 33.0-37.0 [facility] Comment on above: Performed By: #### 2 [id number] #### JEAN CARLOS BunnHemo [address] [place], [place] [phone] MCV Entitic volume (RBC) 81.8 fL Normal 78.0-100.0 [facility] Comment on above: Performed By: #### 2 [id number] #### JEAN CARLOS BunnHemo [address] [place], [place] [address] Platelet mean volume Entitic volume (Bld) 9.9 fL Normal 7.4-11.0 [facility] Comment on above: Performed By: #### 2 [id number] #### JEAN CARLOSKatrina BunnHemo [facility] [place] [phone] Platelets #/vol (Bld) 276 E3/mcL Normal 130-400 [facility] Comment on above: Performed By: #### 2 [id number] #### JEAN CARLOS RemHemo [facility] [place] [address] RBC #/vol (Bld) 4.59 E6/mcL Normal 3.90-5.40 [facility] Comment on above: Performed By: #### 2 078693 #### JEAN CARLOS [address] [address] WBC #/vol (Bld) 9.3 E3/mcL Normal 3.6-11.0 [facility] Comment on above: Performed By: #### 2 [id number] #### JEAN CARLOS [address] [address] CMPon 06-22-2018 Albumin mass conc 4.0 g/dL Normal 3.4-5.0 [facility] Comment on above: Performed By: #### 2 577654 #### JEAN CARLOSKatrina Rodriguez[address] [address] Albumin/Globulin mass ratio 1.3 {ratio} Normal 1.1-1.9 [facility] Comment on above: Performed By: #### 2 [id number] #### JEAN CARLOS Rodriguezo [address] [place] [address] Alk Phos 66 Int._Unit/L Normal 33-110 [facility] Comment on above: Performed By: #### 2 [id number] #### JEAN CARLOSKatrina Rodriguezo [address] [place] [address] ALT enzyme act/vol 16 Int._Unit/L Normal 7-45 [facility] Comment on above: Performed By: #### 2 [id number] #### JEAN CARLOS Rodriguezo [facility] [place] [address] Anion gap molar conc 12 mmol/L Normal 10-20 [facility] Comment on above: Performed By: #### 2 905598 #### JEAN CARLOS BunnHemo [address] [place] [address] AST enzyme act/vol 10 Int._Unit/L Normal 9-39 [facility] Comment on above: Performed By: #### 2 772248 #### JEAN CARLOSKatrina Rodriguezo [address] [place] [address] Bili Total 0.32 mg/dL Normal 0.00-1.20 [facility] Comment on above: Performed By: #### 2 083036 #### JEAN CARLOS BunnHemo [address] [place] [address] Calcium mass conc 9.1 mg/dL Normal 8.6-10.3 [facility] Comment on above: Performed By: #### 2 776838 #### JEAN CARLOS BunnHemo [address] [place] [address] Chloride molar conc 108 mmol/L High 98-107 [facility] Comment on above: Performed By: #### 2 [id number] #### JEAN CARLOS BunnHemo [address] [place] [address] CO2 molar conc 22.0 mmol/L Normal 21.0-32.0 [facility] Comment on above: Performed By: #### 2 [id number] #### JEAN CARLOS BunnHemo [address] [place] [address] Creatinine mass conc 0.6 mg/dL Normal 0.5-1.1 [facility] Comment on above: Performed By: #### 2 759791 #### JEAN CARLOS BunnHemo [address] [place] [address] Globulin mass conc (S) 3.0 g/dL Normal 2.0-4.0 [facility] Comment on above: Performed By: #### 2 749655 #### JEAN CARLOS BunnHemo [address] [place] [address] Glucose mass conc 105 mg/dL High 70-99 [facility] Comment on above: Performed By: #### 2 615942 #### JEAN CARLOS BunnHemo [address] [place] [address] Potassium molar conc 3.7 mmol/L Normal 3.5-5.3 [facility] Comment on above: Performed By: #### 2 959772 #### JEAN CARLOS BunnHemo [address] [place] [address] Protein mass conc 7.0 g/dL Normal 6.4-8.2 [facility] Comment on above: Performed By: #### 2 [id number] #### JEAN CARLOS RemHemo [address] [place] [address] Sodium molar conc 138 mmol/L Normal 136-145 [facility] Comment on above: Performed By: #### 2 154269 #### JEAN CARLOS BunnHemo [address] [place] [address] Urea nitrogen mass conc 10 mg/dL Normal 6-23 [facility] Comment on above: Performed By: #### 2 017113 #### JEAN CARLOS BunnHemo [address] [place] [address] Urea nitrogen/Creatinine mass ratio 16.7 ratio Normal 5.4-30.0 [facility] Comment on above: Performed By: #### 2 [id number] #### JEAN CARLOS BunnHemo [address] [place] [address] Vit B12on 06-22-2018 Cobalamin (Vitamin B12) mass conc 326 pg/mL Normal 180-914 [facility] Comment on above: Performed By: #### 2 [id number] #### JEAN CARLOS [facility] [place] [address] eGFRon 06-22-2018 GFR/1.73 sq M predicted among non-blacks MDRD vol rate/area (S/P/Bld) mL/min/{1.73_m2} Normal [facility] Comment on above: Order Comment: Order added by Discern Expert. Performed By: #### 2 [id number] #### JEAN CARLOS [facility] [place] [address] XR Foot 2 Views Lefton 01-12 XR Foot 2 Views Left Exam Date/Time: 01/11/2018 15:29 EDT Reason for Exam: Pain, Non Traumatic Report STUDY: XR Foot 2 Views Left; 01/11/2018 3:29 pm INDICATION: Pain, Non Traumatic. COMPARISON: None. ACCESSION NUMBER(S): [id number] ORDERING CLINICIAN: Nirali Portillo TECHNIQUE: 2 views [...] by: Dagoberto Morrison MD Technologist: GLP Normal [facility] Auto Diffon 11-22-2017 Basophils #/vol (Bld) 0.1 E3/mcL Normal 0.0-0.2 [facility] Comment on above: Order Comment: Order Added by Discern Expert. Performed By: #### 2 [id number] #### JEAN CARLOS [facility] [address] [place] [address] Basophils/100 WBC (Bld) 0.6 % Normal 0.0-2.0 [facility] Comment on above: Order Comment: Order Added by Discern Expert. Performed By: #### 2 [id number] #### JEAN CARLOS [employer] [address] [place] [address] Eos Absolute 0.0 E3/mcL Normal 0.0-0.7 [facility] Comment on above: Order Comment: Order Added by Carmenza Expert. Performed By: #### 2 [id number] #### JEAN CARLOS [employer] [address] [place] [address] Eosinophils/100 WBC (Bld) 0.1 % Normal 0.0-11.0 [facility] Comment on above: Order Comment: Order Added by Carmenza Expert. Performed By: #### 2 [id number] #### JEAN CARLOS [employer] [address] [place] [address] Lymphocytes #/vol (Bld) 2.1 E3/mcL Normal 1.2-3.4 [facility] Comment on above: Order Comment: Order Added by Discern Expert. Performed By: #### 2 [id number] #### JEAN CARLOS [employer] [address] [place] [address] Lymphocytes/100 WBC (Bld) 14.3 % Low 20.0-55.0 [facility] Comment on above: Order Comment: Order Added by Discern Expert. Performed By: #### 2 [id number] #### JEAN CARLOS [facility] [address] [place] [address] Patrick Absolute 0.4 E3/mcL Normal 0.0-0.7 [facility] Comment on above: Order Comment: Order Added by Carmenza Expert. Performed By: #### 2 [id number] #### JEAN CARLOS [facility] [address] [place] [address] Monocytes/100 WBC (Bld) 3.0 % Normal 0.0-10.0 [facility] Comment on above: Order Comment: Order Added by Discern Expert. Performed By: #### 2 [id number] #### JEAN CARLOS [employer] [address] [place] [address] Neutro Absolute 11.8 E3/mcL High 1.4-6.5 [facility] Comment on above: Order Comment: Order Added by Discern Expert. Performed By: #### 2 [id number] #### JEAN CARLOS [employer] [address] [place] [address] Neutro Auto 82.0 % High 37.0-75.0 [facility] Comment on above: Order Comment: Order Added by Discern Expert. Performed By: #### 2 [id number] #### JEAN CARLOS [facility] [address] [place] [address] CBC w/ Auto Diffon 8 Erythrocyte distribution width Ratio (RBC) 14.2 % Normal 11.5-14.5 [facility] Comment on above: Performed By: #### 2 [id number] #### JEAN CARLOS [facility] [address] [place] [address] Hematocrit Volume Fraction (Bld) 37.9 % Normal 36.0-48.0 [facility] Comment on above: Performed By: #### 2 [id number] #### JEAN CARLOS [facility] [address] [place] [address] Hemoglobin mass conc (Bld) 12.7 g/dL Normal 12.0-16.0 [facility] Comment on above: Performed By: #### 2 [id number] #### JEAN CARLOS [employer] [address] [place] [address] MCH Entitic mass (RBC) 27.3 pg Normal 27.0-31.0 [facility] Comment on above: Performed By: #### 2 [id number] #### JEAN CARLOS [employer] [address] [place] [address] MCHC mass conc (RBC) 33.5 g/dL Normal 33.0-37.0 [facility] Comment on above: Performed By: #### 2 [id number] #### JEAN CARLOS [employer] [address] [place] [address] MCV Entitic volume (RBC) 81.5 fL Normal 78.0-100.0 [facility] Comment on above: Performed By: #### 2 [id number] #### JEAN CARLOS [facility] [address] [place] [address] Platelet mean volume Entitic volume (Bld) 9.7 fL Normal 7.4-11.0 [facility] Comment on above: Performed By: #### 2 [id number] #### JEAN CARLOS [facility] [place] [id number] Platelets #/vol (Bld) 346 E3/mcL Normal 130-400 [facility] Comment on above: Performed By: #### 2 [id number] #### JEAN CARLOSKatrina BunnHemo [facility] [place] [address] RBC #/vol (Bld) 4.65 E6/mcL Normal 3.90-5.40 [facility] Comment on above: Performed By: #### 2 [id number] #### JEAN CARLOSKatrina BunnHemo [address] [place], [place] [id number] WBC #/vol (Bld) 14.4 E3/mcL High 3.6-11.0 [facility] Comment on above: Performed By: #### 2 [id number] #### JEAN CARLOS [facility]unn[facility] [address] [place], [place] [address] CMPon 11-22-2017 Albumin mass conc 3.8 g/dL Normal 3.2-5.0 [facility] Comment on above: Performed By: #### 2 [id number] #### JEAN CARLOS Em [address] [place] [address] Albumin/Globulin mass ratio 1.0 {ratio} Low 1.1-1.9 [facility] Comment on above: Performed By: #### 2 [id number] #### JEAN CARLOS [facility] [place] [address] Alk Phos 78 Int._Unit/L Normal 42-121 [facility] Comment on above: Performed By: #### 2 [id number] #### JEAN CARLOSKatrina BunnNabeel [facility] [place] [id number] ALT enzyme act/vol 30 Int._Unit/L Normal 10-40 [facility] Comment on above: Performed By: #### 2 [id number] #### JEAN CARLOS [employer] [address] [place] [address] AST enzyme act/vol 23 Int._Unit/L Normal 10-42 [facility] Comment on above: Performed By: #### 2 [id number] #### JEAN CARLOS [employer] [address] [place] [address] Bili Total 0.4 mg/dL Normal 0.2-1.0 [facility] Comment on above: Performed By: #### 2 [id number] #### JEAN CARLOS [employer] [address] [place] [address] Creatinine mass conc 0.6 mg/dL Normal 0.6-1.3 [facility] Comment on above: Performed By: #### 2 [id number] #### JEAN CARLOS [employer] [address] [place] [address] Globulin mass conc (S) 4.0 g/dL Normal 2.0-4.0 [facility] Comment on above: Performed By: #### 2 [id number] #### JEAN CARLOS [employer] [address] [place] [address] Protein mass conc 7.8 g/dL Normal 6.4-8.3 [facility] Comment on above: Performed By: #### 2 [id number] #### JEAN CARLOS [employer] [address] [place] [address] Urea nitrogen mass conc 12 mg/dL Normal 7-18 [facility] Comment on above: Performed By: #### 2 [id number] #### JEAN CARLOS [employer] [address] [place] [address] Urea nitrogen/Creatinine mass ratio 20.0 ratio Normal 5.4-30.0 [facility] Comment on above: Performed By: #### 2 [id number] #### JEAN CARLOS [employer] [address] [place] [address] Calcium mass conc 9.1 mg/dL Normal 8.4-10.2 [facility] Comment on above: Performed By: #### 2 [id number] #### JEAN CARLOS [employer] [address] [place] [address] Chloride molar conc 103 mmol/L Normal 98-107 [facility] Comment on above: Performed By: #### 2 [id number] #### JEAN CARLOS [employer] [address] [place] [address] CO2 molar conc 25.4 mmol/L Normal 24.0-30.0 [facility] Comment on above: Performed By: #### 2 [id number] #### JEAN CARLOS [employer] [address] [place] [address] Glucose mass conc 111 mg/dL High 70-99 [facility] Comment on above: Performed By: #### 2 [id number] #### JEAN CARLOS [employer] [address] [place] [address] Potassium molar conc 3.9 mmol/L Normal 3.5-5.1 [facility] Comment on above: Performed By: #### 2 [id number] #### JEAN CARLOS [employer] [address] [place] [address] Sodium molar conc 137 mmol/L Normal 136-145 [facility] Comment on above: Performed By: #### 2 [id number] #### JEAN CARLOS [employer] [address] [place] [address] Ferritinon 11-22-2017 Ferritin mass conc 49.3 ng/mL Normal 11.0-306.8 [facility] Comment on above: Performed By: #### 2 [id number] #### JEAN CARLOS [employer] [address] [place], [place] [address] SgrF8vdt 11-22-2017 Hemoglobin A1c/Hemoglobin.total mass fraction (Bld) 5.0 % Normal 4.0-6.3 [facility] Comment on above: Performed By: #### 3 [id number] #### JEAN CARLOS Chemistry Manual Subsection [address] [place] [address] Ironon 11-22-2017 Iron mass conc 49 microgram/dL Normal 35-155 [facility] Comment on above: Performed By: #### 2 [id number] #### JEAN CARLOS [employer] [address] [place] [address] US Abdomen, Limitedon 2017 US Abdomen, Limited Exam Date/Time: 11/22/2017 07:31 EDT Reason for Exam: DARK TARRY STOOLS NAUSEA RIGHT UPPER QUAD PAIN DYSPEPSIA;Abdominal pain Report STUDY: US Abdomen, Limited; 11/22/2017 7:31 am INDICATION: Abdominal pain. COMPARISON: None. ACCESSION NUMBER(S): [id number] ORDERING CLINICIAN: ASHLYN GATES TECHNIQUE: Multiple images [...] am Signed by: Tang Kessler MD Technologist: KD Normal [facility] Vit B12on 11-22-2017 Cobalamin (Vitamin B12) mass conc 419 pg/mL Normal 180-914 [facility] Comment on above: Performed By: #### 2 [id number] #### JEAN CARLOS [employer] [address] [place] [address] eGFRon 11-22-2017 GFR/1.73 sq M predicted among non-blacks MDRD vol rate/area (S/P/Bld) mL/min/{1.73_m2} Normal [facility] Comment on above: Order Comment: Order added by Discern Expert. Performed By: #### 1 [id number] #### JEAN CARLOS [employer] [address] [place] [address] JOCELYN Teston 11-17-2017 JOCELYN Test Negative Normal Negative [facility] Comment on above: Performed By: #### 8 [id number] #### JEAN CARLOS [facility] SubSection , Pathology ([facility])on 04-27-2017 Pathology ([facility]) FINAL GYNECOLOGIC CYTOLOGY [id number] ADEQUACYSatisfactory for Evaluation. No endocervical cells/transformation zonecomponent present.GENERAL CATEGORIZATIONNegative for Intraepithelial Lesion or MalignancyDESCRIPTIVE DIAGNOSISParakeratosis is present.COMMENTCytolysis present.CLINICAL HISTORYComment: No LMP provided.SPECIMEN(A) SCREENING CERVICAL/ENDOCERVICAL LIQUID-BASED PAPPerformed at [facility], [address], [place] [address]Fsaptquv by: ARBEN TAVERAS Uranium Processing Supervisor Signed Out by: ARACELI FINNEGAN M.D. Reported: 05/02/2017 Normal [facility] Comment on above: Performed By: #### G YRandolph ####[facility] [address] [place] [address] Vital Signs Date Time Vital Sign Value Performing Clinician Facility 01-29-2025 15: Body height 165.1 cm Ashlyn LOPEZ-C Work Phone: [facility] 01-29-2025 15:09040 Body mass index (BMI) [Ratio] 66.23 kg/m2 Ashlyn Gates PA-C Work Phone: [facility] 01-29-2025 15:040 Body weight 180.53 kg Ashlyn Gates PA-C Work Phone: [facility] 01-29-2025 15:09040 Diastolic blood pressure 85 mm[Hg] Ashlyn Gates PA-C Work Phone: [facility] 01-29-2025 15:09040 Heart rate 76 /min Ashlyn Gates PA-C Work Phone: [facility] 01-29-2025 15:09040 Systolic blood pressure 138 mm[Hg] Ashlyn Yajaira PA-C Work Phone: [facility] 10-30-2024 13:13-0400 Body height 165.1 cm Ashlynphylicia Walkerall PA-C Work Phone: [facility] 10-30-2024 13:13-0400 Body mass index (BMI) [Ratio] 65 kg/m2 Ashlyn Yajaira PA-C Work Phone: [facility] 10-30-2024 13:13-0400 Body weight 177.18 kg Ashlyn Yajaira PA-C Work Phone: [facility] 10-30-2024 13:13-0400 Diastolic blood pressure 85 mm[Hg] Ashlyn Yajaira PA-C Work Phone: [facility] 10-30-2024 13:13-0400 Heart rate 79 /min Ashlyn Shreveport PA-C Work Phone: [facility] 10-30-2024 13:13-0400 SaO2% (BldA) [Mass fraction] 94 % Ashlyn Yajaira PA-C Work Phone: [facility] 10-30-2024 13:13-0400 Systolic blood pressure 140 mm[Hg] Ashlyn Yajaira PA-C Work Phone: [facility] 09-11-2024 09:24-0400 Body height 165.1 cm Ashlynphylicia Walkerall PA-C Work Phone: [facility] 09-11-2024 09:24-0400 Body mass index (BMI) [Ratio] 63.83 kg/m2 Ashlyn Shreveport PA-C Work Phone: [facility] 09-11-2024 09:24-0400 Body weight 174 kg Ashlyn Yajaira PA-C Work Phone: [facility] 09-11-2024 09:24-0400 Diastolic blood pressure 82 mm[Hg] Ashlyn Yajaira PA-C Work Phone: [facility] 09-11-2024 09:24-0400 Heart rate 74 /min Ashlyn Shreveport PA-C Work Phone: [facility] 09-11-2024 09:24-0400 SaO2% (BldA) [Mass fraction] 95 % Ashlyn Yajaira PA-C Work Phone: [facility] 09-11-2024 09:24-0400 Systolic blood pressure 129 mm[Hg] Ashlyn Yajaira PA-C Work Phone: [facility] 08-15-2024 09:49-0400 Body height 165.1 cm Ashlyn Shreveport PA Work Phone: [facility] 08-15-2024 09:49-0400 Body mass index (BMI) [Ratio] 59.9 kg/m2 Ashlyn Yajaira PA Work Phone: [facility] 08-15-2024 09:49-0400 Body weight 163.29 kg Ashlyn Shreveport PA Work Phone: [facility] 08-15-2024 09:49-0400 Diastolic blood pressure 88 mm[Hg] Ashlyn Yajaira PA Work Phone: [facility] 08-15-2024 09:49-0400 Heart rate 68 /min Ashlyn Shreveport PA Work Phone: [facility] 08-15-2024 09:49-0400 Respiratory rate 18 /min Ashlyn Yajaira PA Work Phone: [facility] 08-15-2024 09:49-0400 Systolic blood pressure 138 mm[Hg] Ashlyn Shreveport PA Work Phone: [facility] 08-07-2024 08:52-0400 Body mass index (BMI) [Ratio] 63.04 kg/m2 Fabi Giraldo APRN-RESISTOR WINDER Work Phone: [employer] [facility] 08-07-2024 08:52-0400 Body weight 171.82 kg Fabi Kristal WATER FITNESS INSTRUCTOR-RESISTOR WINDER Work Phone: [facility] 08-07-2024 08:52-0400 Diastolic blood pressure 101 mm[Hg] Fabi Giraldo WATER FITNESS INSTRUCTOR-RESISTOR WINDER Work Phone: [facility] 08-07-2024 08:52-0400 Heart rate 114 /min Fabi Giraldo WATER FITNESS INSTRUCTOR-RESISTOR WINDER Work Phone: [facility] 08-07-2024 08:52-0400 Systolic blood pressure 134 mm[Hg] Fabi Giraldo WATER FITNESS INSTRUCTOR-RESISTOR WINDER Work Phone: [facility] 08-02-2024 09:01-0500 Body mass index (BMI) [Ratio] 59.9 kg/m2 Ashlyn Shreveport PA Work Phone: [facility] 08-02-2024 09:01-0500 Body weight 163.29 kg Ashlyn Shreveport PA Work Phone: [facility] 08-02-2024 09:01-0500 Diastolic blood pressure 72 mm[Hg] Ashlyn Shreveport PA Work Phone: [facility] 08-02-2024 09:01-0500 Heart rate 81 /min Ashlyn Yajaira PA Work Phone: [facility] 08-02-2024 09:01-0500 Respiratory rate 18 /min Ashlyn Yajaira PA Work Phone: [facility] 08-02-2024 09:01-0500 SaO2% (BldA) [Mass fraction] 95 % Ashlyn Yajaira PA Work Phone: [facility] 08-02-2024 09:01-0500 Systolic blood pressure 112 mm[Hg] Ashlyn Shreveport PA Work Phone: [facility] 08-01-2024 09:17-0500 Body temperature 97.8 [degF] Ashlyn Yajaira PA Work Phone: [facility] 08-01-2024 09:17-0500 Diastolic blood pressure 107 mm[Hg] Ashlyn Shreveport PA Work Phone: [facility] 08-01-2024 09:17-0500 Heart rate 101 /min Ashlyn Shreveport PA Work Phone: [facility] 08-01-2024 09:17-0500 Respiratory rate 14 /min Ashlyn Shreveport PA Work Phone: [facility] 08-01-2024 09:17-0500 SaO2% (BldA) [Mass fraction] 97 % Ashlyn Shreveport PA Work Phone: [facility] 08-01-2024 09:17-0500 Systolic blood pressure 146 mm[Hg] Ashlyn Yajaira PA Work Phone: [facility] 08-01-2024 06:41-0500 Body mass index (BMI) [Ratio] 28.5 kg/m2 Ashlyn Yajaira PA Work Phone: [facility] 08-01-2024 06:41-0500 Body weight 77.81 kg Ashlyn Yajaira PA Work Phone: [facility] 07-30-2024 13:07-0500 Body height 165.1 cm Desiree Sin MD Work Phone: [facility] 07-30-2024 13:07-0500 Body mass index (BMI) [Ratio] 62.9 kg/m2 Desiree Sin MD Work Phone: [facility] 07-30-2024 13:07-0500 Body weight 171.46 kg Desiree Sin MD Work Phone: [facility] 07-30-2024 13:07-0500 Diastolic blood pressure 87 mm[Hg] Desiree Sin MD Work Phone: [facility] 07-30-2024 13:07-0500 Heart rate 94 /min Desiree Sin MD Work Phone: [facility] 07-30-2024 13:07-0500 Systolic blood pressure 118 mm[Hg] Desiree Sin MD Work Phone: [facility] 07-24-2024 13:12-0500 Body temperature 99 [degF] Ashlyn Yajaira PA Work Phone: [facility] 07-24-2024 13:12-0500 Diastolic blood pressure 74 mm[Hg] Ashlyn Shreveport PA Work Phone: [facility] 07-24-2024 13:12-0500 Heart rate 120 /min Ashlyn Yajaira PA Work Phone: [facility] 07-24-2024 13:12-0500 Respiratory rate 16 /min Ashlyn Shreveport PA Work Phone: [facility] 07-24-2024 13:12-0500 SaO2% (BldA) [Mass fraction] 95 % Ashlyn Yajaira PA Work Phone: [facility] 07-24-2024 13:12-0500 Systolic blood pressure 121 mm[Hg] Ashlyn Shreveport PA Work Phone: [facility] 07-24-2024 04:54-0500 Body mass index (BMI) [Ratio] 63 kg/m2 Ashlyn Yajaira PA Work Phone: [facility] 07-24-2024 04:54-0500 Body weight 171.8 kg Ashlyn Shreveport PA Work Phone: [facility] 06-19-2024 14:12-0500 Body height 165.1 cm Ashlyn Shreveport PA-C Work Phone: [facility] 06-19-2024 14:12-0500 Body mass index (BMI) [Ratio] 62.64 kg/m2 Ashlyn Yajaira PA-C Work Phone: [facility] 06-19-2024 14:12-0500 Body weight 170.73 kg Ashlyn Shreveport PA-C Work Phone: [facility] 06-19-2024 14:12-0500 Diastolic blood pressure 89 mm[Hg] Ashlyn Gates PA-C Work Phone: [facility] 06-19-2024 14:12-0500 Heart rate 101 /min Ashlyn Gates PA-C Work Phone: [facility] 06-19-2024 14:12-0500 Systolic blood pressure 125 mm[Hg] Ashlyn LOPEZ-C Work Phone: [facility] 05-17-2024 09:37-0500 Body mass index (BMI) [Ratio] 62.7 kg/m2 Fabi Giraldo APRN-RESISTOR WINDER Work Phone: [facility] 05-17-2024 09:37-0500 Body weight 170.91 kg Fabi Giraldo APRN-RESISTOR WINDER Work Phone: [facility] 05-17-2024 09:37-0500 Diastolic blood pressure 85 mm[Hg] Fabi Giraldo WATER FITNESS INSTRUCTOR-RESISTOR WINDER Work Phone: [employer] [facility] 05-17-2024 09:37-0500 Heart rate 89 /min Fabi Giraldo APRN-RESISTOR WINDER Work Phone: [facility] 05-17-2024 09:37-0500 SaO2% (BldA) [Mass fraction] 97 % Fabi Giraldo APRN-RESISTOR WINDER Work Phone: [facility] 05-17-2024 09:37-0500 Systolic blood pressure 137 mm[Hg] Fabi Giraldo APRN-RESISTOR WINDER Work Phone: [employer] [facility] 04-10-2024 09:58-0500 Diastolic blood pressure 96 mm[Hg] Fabi Giraldo WATER FITNESS INSTRUCTOR-RESISTOR WINDER Work Phone: [facility] 04-10-2024 09:58-0500 Systolic blood pressure 142 mm[Hg] Fabi Giraldo WATER FITNESS INSTRUCTOR-RESISTOR WINDER Work Phone: [facility] 04-10-2024 09:45-0500 Body mass index (BMI) [Ratio] 62.7 kg/m2 Fabi Giraldo APRN-RESISTOR WINDER Work Phone: [employer] [facility] 04-10-2024 09:45-0500 Body weight 170.91 kg Fabi Giraldo APRN-RESISTOR WINDER Work Phone: [facility] 04-10-2024 09:45-0500 Heart rate 82 /min Fabi Giraldo APRN-RESISTOR WINDER Work Phone: [facility] [employer] [facility] 03-07-2024 13:54-0400 Diastolic blood pressure 88 mm[Hg] Fabi Giraldo WATER FITNESS INSTRUCTOR-RESISTOR WINDER Work Phone: [facility] 03-07-2024 13:54-0400 Systolic blood pressure 126 mm[Hg] Fabi Giraldo APRN-RESISTOR WINDER Work Phone: [facility] [employer] [facility] 03-07-2024 13:41-0400 Body height 165.1 cm Fabi Giraldo APRN-RESISTOR WINDER Work Phone: [employer] [facility] 03-07-2024 13:41-0400 Body mass index (BMI) [Ratio] 63.02 kg/m2 Fabi Giraldo APRN-RESISTOR WINDER Work Phone: [facility] [employer] [facility] 03-07-2024 13:41-0400 Body weight 171.78 kg Fabi Giraldo APRN-RESISTOR WINDER Work Phone: [facility] 03-07-2024 13:41-0400 Heart rate 96 /min Fabi Giraldo APRN-RESISTOR WINDER Work Phone: [employer] [facility] 03-07-2024 13:41-0400 SaO2% (BldA) [Mass fraction] 98 % Fabi Giraldo APRN-RESISTOR WINDER Work Phone: [facility] 12-18-2023 14:01-0400 Body height 165.1 cm Ashlyn Gates PA-C Work Phone: [facility] 12-18-2023 14:01-0400 Body mass index (BMI) [Ratio] 62.24 kg/m2 Ashlyn Walkerall PA-C Work Phone: [facility] 12-18-2023 14:01-0400 Body weight 169.65 kg Ashlyn Walkerall PA-C Work Phone: [facility] 12-18-2023 14:01-0400 Diastolic blood pressure 86 mm[Hg] Ashlyn Walkerall PA-C Work Phone: [facility] 12-18-2023 14:01-0400 Heart rate 96 /min Ashlyn Walkerall PA-C Work Phone: [facility] 12-18-2023 14:01-0400 Systolic blood pressure 127 mm[Hg] Ashlyn Walkerall PA-C Work Phone: [facility] 12-08-2023 14:27-0400 Diastolic blood pressure 86 mm[Hg] Fabi Giraldo WATER FITNESS INSTRUCTOR-RESISTOR WINDER Work Phone: [facility] 12-08-2023 14:27-0400 Systolic blood pressure 144 mm[Hg] Fabi Dentt WATER FITNESS INSTRUCTOR-RESISTOR WINDER Work Phone: [facility] 12-08-2023 14:18-0400 Body height 165.1 cm Fabi Giraldo WATER FITNESS INSTRUCTOR-RESISTOR WINDER Work Phone: [facility] 12-08-2023 14:18-0400 Body mass index (BMI) [Ratio] 62.47 kg/m2 Fabi Giraldo WATER FITNESS INSTRUCTOR-RESISTOR WINDER Work Phone: [facility] 12-08-2023 14:18-0400 Body weight 170.28 kg Fabi Giraldo WATER FITNESS INSTRUCTOR-RESISTOR WINDER Work Phone: [facility] 12-08-2023 14:18-0400 Heart rate 94 /min Fabi Giraldo WATER FITNESS INSTRUCTOR-RESISTOR WINDER Work Phone: [facility] 09-07-2023 15:43-0400 Body height 165.1 cm Fabi Kristal WATER FITNESS INSTRUCTOR-RESISTOR WINDER Work Phone: [employer] [facility] 09-07-2023 15:43-0400 Body mass index (BMI) [Ratio] 62.64 kg/m2 Fabi Giraldo WATER FITNESS INSTRUCTOR-RESISTOR WINDER Work Phone: [facility] 09-07-2023 15:43-0400 Body weight 170.73 kg Fabi Giraldo WATER FITNESS INSTRUCTOR-RESISTOR WINDER Work Phone: [facility] 09-07-2023 15:43-0400 Diastolic blood pressure 91 mm[Hg] Fabi Giraldo WATER FITNESS INSTRUCTOR-RESISTOR WINDER Work Phone: [facility] 09-07-2023 15:43-0400 Heart rate 94 /min Fabi Giraldo WATER FITNESS INSTRUCTOR-RESISTOR WINDER Work Phone: [facility] 09-07-2023 15:43-0400 Systolic blood pressure 148 mm[Hg] Fabi Giraldo WATER FITNESS INSTRUCTOR-RESISTOR WINDER Work Phone: [facility] 08-12-2023 08:48-0400 Body temperature 98.1 [degF] Patricia Tanvir WATER FITNESS INSTRUCTOR-RESISTOR WINDER Work Phone: [facility] 08-12-2023 08:25-0400 Diastolic blood pressure 114 mm[Hg] Patricia Tanvir WATER FITNESS INSTRUCTOR-RESISTOR WINDER Work Phone: [facility] [facility] 08-12-2023 08:25-0400 Heart rate 100 /min Patricia Tanvir WATER FITNESS INSTRUCTOR-RESISTOR [employer]ER Work Phone: [facility] 08-12-2023 08:25-0400 SaO2% (BldA) [Mass fraction] 100 % Patricia Tanvir WATER FITNESS INSTRUCTOR-RESISTOR WINDER Work Phone: [facility] 08-12-2023 08:25-0400 Systolic blood pressure 164 mm[Hg] Patricia Tanvir WATER FITNESS INSTRUCTOR-RESISTOR W[employer]ER Work Phone: [facility] 08-12-2023 08:21-0400 Body height 165.1 cm Patricia Tanvir WATER FITNESS INSTRUCTOR-RESISTOR W[employer]ER Work Phone: [facility] 08-12-2023 08:21-0400 Body mass index (BMI) [Ratio] 62.57 kg/m2 Patricia Ramey WATER FITNESS INSTRUCTOR-RESISTOR W[employer]ER Work Phone: [facility] 08-12-2023 08:21-0400 Body weight 170.55 kg Patricia Ramey WATER FITNESS INSTRUCTOR-RESISTOR W[employer]ER Work Phone: [facility] 08-12-2023 08:21-0400 Respiratory rate 20 /min Patricia Ramey WATER FITNESS INSTRUCTOR-RESISTOR WINDER Work Phone: [facility] 05-25-2023 13:31-0500 Body mass index (BMI) [Ratio] 62.77 kg/m2 Fabi Kristal WATER FITNESS INSTRUCTOR-RESISTOR [employer]ER Work Phone: [facility] 05-25-2023 13:31-0500 Body weight 171.1 kg Fabi Giraldo WATER FITNESS INSTRUCTOR-RESISTOR WINDER Work Phone: [facility] 05-25-2023 13:31-0500 Diastolic blood pressure 81 mm[Hg] Fabi Giraldo WATER FITNESS INSTRUCTOR-RESISTOR WINDER Work Phone: [employer] [facility] 05-25-2023 13:31-0500 Heart rate 84 /min Fabi Kristal WATER FITNESS INSTRUCTOR-RESISTOR WINDER Work Phone: [employer] [facility] 05-25-2023 13:31-0500 Systolic blood pressure 140 mm[Hg] Fabi Giraldo WATER FITNESS INSTRUCTOR-RESISTOR WINDER Work Phone: [facility] 05-23-2023 14:00-0500 Body height 165.1 cm Ashlyn LOPEZ-C Work Phone: [facility] 05-23-2023 14:00-0500 Body mass index (BMI) [Ratio] 62.74 kg/m2 Ashlyn Gates PA-C Work Phone: [facility] 05-23-2023 14:00-0500 Body weight 171.01 kg Ashlyn LOPEZ-C Work Phone: [facility] 05-23-2023 14:00-0500 Diastolic blood pressure 93 mm[Hg] Ashlyn Gates PA-C Work Phone: [facility] 05-23-2023 14:00-0500 Respiratory rate 96 /min Ashlyn Gates PA-C Work Phone: [facility] 05-23-2023 14:00-0500 SaO2% (BldA) [Mass fraction] 95 % Ashlyn Gates PA-C Work Phone: [facility] 05-23-2023 14:00-0500 Systolic blood pressure 144 mm[Hg] Ashlyn Gates PA-C Work Phone: [facility] 02-15-2023 08:09-0400 Diastolic blood pressure 96 mm[Hg] Fabi Giraldo WATER FITNESS INSTRUCTOR-RESISTOR W[employer]ER Work Phone: [facility] 02-15-2023 08:09-0400 Systolic blood pressure 142 mm[Hg] Fabi Giraldo WATER FITNESS INSTRUCTOR-RESISTOR W[employer]ER Work Phone: [facility] 02-15-2023 07:56-0400 Body mass index (BMI) [Ratio] 61.67 kg/m2 Fabi Giraldo WATER FITNESS INSTRUCTOR-RESISTOR W[employer]ER Work Phone: [facility] 02-15-2023 07:56-0400 Body weight 168.1 kg Fabi Giraldo WATER FITNESS INSTRUCTOR-RESISTOR W[employer]ER Work Phone: [facility] 02-15-2023 07:56-0400 Heart rate 87 /min Fabi Giraldo WATER FITNESS INSTRUCTOR-RESISTOR W[employer]ER Work Phone: [facility] 01-10-2023 10:16-0400 Body height 165.1 cm [...] 15:35-0400 Body height 165.1 cm Fabi Giraldo WATER FITNESS INSTRUCTOR-RESISTOR WINDER Work Phone: [employer] 11-24-2022 15:35-0400 Body mass index (BMI) [Ratio] 60.71 kg/m2 Fabi Giraldo WATER FITNESS INSTRUCTOR-RESISTOR WINDER Work Phone: [employer] 11-24-2022 15:35-0400 Body weight 165.47 kg Fabi Giraldo WATER FITNESS INSTRUCTOR-RESISTOR W[employer]ER Work Phone: [facility] 11-24-2022 15:35-0400 Diastolic blood pressure 83 mm[Hg] Fabi Giraldo WATER FITNESS INSTRUCTOR-RESISTOR W[employer]ER Work Phone: [facility] 11-24-2022 15:35-0400 Heart rate 96 /min Fabi Giraldo WATER FITNESS INSTRUCTOR-RESISTOR W[employer]ER Work Phone: [facility] 11-24-2022 15:35-0400 Systolic blood pressure 139 mm[Hg] Fabi Giraldo WATER FITNESS INSTRUCTOR-RESISTOR W[employer]ER Work Phone: [facility] 11-01-2022 14:46-0400 Body height 165.1 cm Ashlynphylicia Walkerall PA-C Work Phone: [facility] 11-01-2022 14:46-0400 Body mass index (BMI) [Ratio] 60.57 kg/m2 Ashlynphylicia Walkerall PA-C Work Phone: [facility] 11-01-2022 14:46-0400 Body weight 165.11 kg Ashlyn Yajaira PA-C Work Phone: [facility] 11-01-2022 14:46-0400 Diastolic blood pressure 91 mm[Hg] Ashlyn Shreveport PA-C Work Phone: [facility] 11-01-2022 14:46-0400 Heart rate 93 /min Ashlyn Titusenhall PA-C Work Phone: [facility] 11-01-2022 14:46-0400 Systolic blood pressure 137 mm[Hg] Ashlyn Shreveport PA-C Work Phone: [facility] 10-26-2022 15:48-0400 Diastolic blood pressure 92 mm[Hg] Fabi Giraldo WATER FITNESS INSTRUCTOR-RESISTOR WINDER Work Phone: [facility] 10-26-2022 15:48-0400 Systolic blood pressure 158 mm[Hg] Fabi Giraldo WATER FITNESS INSTRUCTOR-RESISTOR W[employer]ER Work Phone: [facility] 10-26-2022 15:33-0400 Body height 165.1 cm Fabi Giraldo WATER FITNESS INSTRUCTOR-RESISTOR W[employer]ER Work Phone: [facility] 10-26-2022 15:33-0400 Body mass index (BMI) [Ratio] 60.31 kg/m2 Fabi Giraldo WATER FITNESS INSTRUCTOR-RESISTOR W[employer]ER Work Phone: [facility] 10-26-2022 15:33-0400 Body temperature 98.4 [degF] Fabi Giraldo WATER FITNESS INSTRUCTOR-RESISTOR W[employer]ER Work Phone: [facility] 10-26-2022 15:33-0400 Body weight 164.38 kg Fabi Giraldo WATER FITNESS INSTRUCTOR-RESISTOR W[employer]ER Work Phone: [facility] 10-26-2022 15:33-0400 Heart rate 89 /min Fabi Giraldo WATER FITNESS INSTRUCTOR-RESISTOR W[employer]ER Work Phone: [facility] 10-26-2022 15:33-0400 SaO2% (BldA) [Mass fraction] 98 % Fabi Giraldo WATER FITNESS INSTRUCTOR-RESISTOR W[employer]ER Work Phone: [facility] 09-03-2022 21:11-0400 Respiratory rate 18 /min PA Ashlyn Gates PA Work Phone: [facility] 09-03-2022 19:12-0400 Body height 165.1 cm PA Ashlyn Gates PA Work Phone: [facility] 09-03-2022 19:12-0400 Body mass index (BMI) [Ratio] 60 kg/m2 PA Ashlynphylicia Walkerall PA Work Phone: [facility] 09-03-2022 19:12-0400 Body temperature 97.6 [degF] PA Ashlynphylicia Walkerall PA Work Phone: [facility] 09-03-2022 19:12-0400 Body weight 163.61 kg PA Ashlynphylicia Walkerall PA Work Phone: [facility] 09-03-2022 19:12-0400 Diastolic blood pressure 107 mm[Hg] PA Ashlyn Gates PA Work Phone: [facility] 09-03-2022 19:12-0400 Heart rate 110 /min PA Ashlyn Gates PA Work Phone: [facility] 09-03-2022 19:12-0400 SaO2% (BldA) [Mass fraction] 97 % PA Ashlyn Gates PA Work Phone: [facility] 09-03-2022 19:12-0400 Systolic blood pressure 162 mm[Hg] PA Ashlyn Gates PA Work Phone: [facility] 08-30-2022 13:40-0400 Diastolic blood pressure 92 mm[Hg] Fabi Giraldo WATER FITNESS INSTRUCTOR-RESISTOR WINDER Work Phone: [facility] 08-30-2022 13:40-0400 Systolic blood pressure 148 mm[Hg] Fabi Giraldo WATER FITNESS INSTRUCTOR-RESISTOR W[employer]ER Work Phone: [facility] 08-30-2022 13:24-0400 Body mass index (BMI) [Ratio] 60.29 kg/m2 Fabi Giraldo APRN-RESISTOR WINDER Work Phone: [facility] 08-30-2022 13:24-0400 Body weight 164.34 kg Fabi Giraldo APRN-RESISTOR WINDER Work Phone: [facility] 08-30-2022 13:24-0400 Heart rate 98 /min Fabi Giraldo APRN-RESISTOR WINDER Work Phone: [facility] 07-26-2022 14:28-0500 Diastolic blood pressure 84 mm[Hg] Fabi Giraldo WATER FITNESS INSTRUCTOR-RESISTOR W[employer]ER Work Phone: [facility] 07-26-2022 14:28-0500 Systolic blood pressure 134 mm[Hg] Fabi Giraldo WATER FITNESS INSTRUCTOR-RESISTOR WINDER Work Phone: [facility] 07-26-2022 14:10-0500 Body height 165.1 cm Fabi Giraldo APRN-RESISTOR WINDER Work Phone: [employer] 07-26-2022 14:10-0500 Body mass index (BMI) [Ratio] 60.41 kg/m2 Fabi Giraldo WATER FITNESS INSTRUCTOR-RESISTOR WINDER Work Phone: [employer] [facility] 07-26-2022 14:10-0500 Body weight 164.66 kg Fabi Giraldo WATER FITNESS INSTRUCTOR-RESISTOR WINDER Work Phone: [employer] 07-26-2022 14:10-0500 Heart rate 91 /min Fabi Giraldo WATER FITNESS INSTRUCTOR-RESISTOR WINDER Work Phone: [employer] [facility] 06-28-2022 15:32-0500 Diastolic blood pressure 94 mm[Hg] Fabi Giraldo WATER FITNESS INSTRUCTOR-RESISTOR WINDER Work Phone: [employer] [facility] 06-28-2022 15:32-0500 Systolic blood pressure 158 mm[Hg] Fabi Giraldo WATER FITNESS INSTRUCTOR-RESISTOR WINDER Work Phone: [employer] 06-28-2022 14:58-0500 Body height 165.1 cm Fabi Giraldo APRN-RESISTOR WINDER Work Phone: [employer] 06-28-2022 14:58-0500 Body mass index (BMI) [Ratio] 60.81 kg/m2 Fabi Giraldo APRN-RESISTOR WINDER Work Phone: [employer] [facility] 06-28-2022 14:58-0500 Body weight 165.74 kg Fabi Dentt WATER FITNESS INSTRUCTOR-RESISTOR WINDER Work Phone: [employer] [facility] 06-28-2022 14:58-0500 Heart rate 82 /min Fabi Kristal WATER FITNESS INSTRUCTOR-RESISTOR WINDER Work Phone: [employer] [facility] 05-18-2022 06:32-0500 Body mass index (BMI) [Ratio] 58.7 kg/m2 JOHN LOPEZ Work Phone: [facility] 05-18-2022 06:32-0500 Body temperature 98.3 [degF] JOHN LOPEZ Work Phone: [facility] 05-18-2022 06:32-0500 Body weight 160.11 kg PA Ashlyn Yajaira PA Work Phone: [facility] 05-18-2022 06:32-0500 Diastolic blood pressure 90 mm[Hg] PA Ashlyn Yajaira PA Work Phone: [facility] 05-18-2022 06:32-0500 Heart rate 92 /min PA Ashlyn Shreveport PA Work Phone: [facility] 05-18-2022 06:32-0500 Respiratory rate 14 /min PA Ashlyn Shreveport PA Work Phone: [facility] 05-18-2022 06:32-0500 SaO2% (BldA) [Mass fraction] 98 % PA Ashlyn Shreveport PA Work Phone: [facility] 05-18-2022 06:32-0500 Systolic blood pressure 152 mm[Hg] PA Ashlyn Yajaira PA Work Phone: [facility] 05-03-2022 14:51-0500 Body height 165.1 cm Ashlyn Walkerall Work Phone: [facility] Work Phone: 05-03-2022 14:51-0500 Body mass index (BMI) [Ratio] 57.24 kg/m2 Ashlyn Walkerall Work Phone: [facility] Work Phone: 05-03-2022 14:51-0500 Body surface area Derived from formula 2.49 m2 Ashlyn Titusenhall Work Phone: [facility] Work Phone: 05-03-2022 14:51-0500 Body weight 156.04 kg Ashlyn Titusenhall Work Phone: [facility] Work Phone: 05-03-2022 14:51-0500 Diastolic blood pressure 82 mm[Hg] Ashlyn Gates Work Phone: [facility] Work Phone: 05-03-2022 14:51-0500 Heart rate 88 /min Ashlyn aGtes Work Phone: [facility] Work Phone: 05-03-2022 14:51-0500 Systolic blood pressure 138 mm[Hg] Ashlyn Gates Work Phone: [facility] Work Phone: 04-26-2022 16:01-0500 Diastolic blood pressure 86 mm[Hg] Fabi Giraldo WATER FITNESS INSTRUCTOR-RESISTOR WINDER Work Phone: [facility] 04-26-2022 16:01-0500 Systolic blood pressure 136 mm[Hg] Fabi Dentt WATER FITNESS INSTRUCTOR-RESISTOR W[employer]ER Work Phone: [facility] 04-26-2022 15:37-0500 Body height 165.1 cm Fabi Giraldo WATER FITNESS INSTRUCTOR-RESISTOR W[employer]ER Work Phone: [facility] 04-26-2022 15:37-0500 Body mass index (BMI) [Ratio] 57.94 kg/m2 Fabi Kristal WATER FITNESS INSTRUCTOR-RESISTOR W[employer]ER Work Phone: [facility] 04-26-2022 15:37-0500 Body weight 157.94 kg Fabi Giraldo WATER FITNESS INSTRUCTOR-RESISTOR WINDER Work Phone: [facility] 04-26-2022 15:37-0500 Heart rate 91 /min Fabi Giraldo WATER FITNESS INSTRUCTOR-RESISTOR WINDER Work Phone: [facility] 04-11-2022 13:09-0500 Body height 165 cm Ashlyn Gates Other Phone: [facility] 04-11-2022 13:09-0500 Body temperature 96.98 [degF] Ashlyn Gates Other Phone: [facility] 04-11-2022 13:09-0500 Diastolic blood pressure 101 mm[Hg] Ashlyn Titusenhall Other Phone: [facility] 04-11-2022 13:09-0500 Heart rate 96 /min Ashlyn Titusenhall Other Phone: [facility] 04-11-2022 13:09-0500 Respiratory rate 16 /min Ashlyn Titusenhall Other Phone: [facility] 04-11-2022 13:09-0500 SaO2% (BldA) [Mass fraction] 97 % Ashlyn Walkerall Other Phone: [facility] 04-11-2022 13:09-0500 Systolic blood pressure 148 mm[Hg] Ashlyn Titusenhall Other Phone: [facility] 03-24-2022 15:34-0400 Diastolic blood pressure 82 mm[Hg] Fabi Giraldo WATER FITNESS INSTRUCTOR-RESISTOR WINDER Work Phone: [facility] 03-24-2022 15:34-0400 Systolic blood pressure 138 mm[Hg] Fabi Giraldo WATER FITNESS INSTRUCTOR-RESISTOR WINDER Work Phone: [facility] [employer] [facility] 03-24-2022 15:11-0400 Body height 165.1 cm Fabi Giraldo WATER FITNESS INSTRUCTOR-RESISTOR WINDER Work Phone: [facility] 03-24-2022 15:11-0400 Body mass index (BMI) [Ratio] 57.41 kg/m2 Fabi Giraldo WATER FITNESS INSTRUCTOR-RESISTOR WINDER Work Phone: [facility] 03-24-2022 15:11-0400 Body weight 156.49 kg Fabi Giraldo WATER FITNESS INSTRUCTOR-RESISTOR WINDER Work Phone: [facility] 03-24-2022 15:11-0400 Heart rate 105 /min Fabi Giraldo WATER FITNESS INSTRUCTOR-RESISTOR WINDER Work Phone: [facility] 02-24-2022 15:42-0400 Body height 165.1 cm Fabi Giraldo WATER FITNESS INSTRUCTOR-RESISTOR WINDER Work Phone: [facility] 02-24-2022 15:42-0400 Body mass index (BMI) [Ratio] 53.98 kg/m2 Fabi Dentt WATER FITNESS INSTRUCTOR-RESISTOR W[employer]ER Work Phone: [facility] 02-24-2022 15:42-0400 Body weight 147.15 kg Fabi Irizarryhart WATER FITNESS INSTRUCTOR-RESISTOR W[employer]ER Work Phone: [facility] 02-24-2022 15:42-0400 Diastolic blood pressure 89 mm[Hg] Fabi Kristal WATER FITNESS INSTRUCTOR-RESISTOR WINDER Work Phone: [facility] 02-24-2022 15:42-0400 Heart rate 87 /min Fabi Kristal WATER FITNESS INSTRUCTOR-RESISTOR W[employer]ER Work Phone: [facility] 02-24-2022 15:42-0400 Systolic blood pressure 126 mm[Hg] Fabi Kristal WATER FITNESS INSTRUCTOR-RESISTOR W[employer]ER Work Phone: [facility] 01-26-2022 15:13-0400 Body height 165.1 cm Fabianne IrizarryKristal WATER FITNESS INSTRUCTOR-RESISTOR W[employer]ER Work Phone: [facility] 01-26-2022 15:13-0400 Body mass index (BMI) [Ratio] 56.38 kg/m2 Fabi Dentt WATER FITNESS INSTRUCTOR-RESISTOR W[employer]ER Work Phone: [facility] 01-26-2022 15:13-0400 Body weight 153.68 kg Fabi Kristal WATER FITNESS INSTRUCTOR-RESISTOR W[employer]ER Work Phone: [facility] 01-26-2022 15:13-0400 Diastolic blood pressure 84 mm[Hg] Fabi Dentt WATER FITNESS INSTRUCTOR-RESISTOR WINDER Work Phone: [facility] 01-26-2022 15:13-0400 Heart rate 93 /min Fabi Dentt WATER FITNESS INSTRUCTOR-RESISTOR WINDER Work Phone: [facility] 01-26-2022 15:13-0400 Systolic blood pressure 136 mm[Hg] Fabi Giraldo WATER FITNESS INSTRUCTOR-RESISTOR WINDER Work Phone: [facility] 01-25-2022 08:52-0400 Body mass index (BMI) [...] 15:04-0400 Body height 165.1 cm Fabi Giraldo APRN-RESISTOR WINDER Work Phone: [facility] 11-25-2021 15:04-0400 Body mass index (BMI) [Ratio] 57.94 kg/m2 Fabi Giraldo APRN-RESISTOR WINDER Work Phone: [facility] 11-25-2021 15:04-0400 Body weight 157.94 kg Fabi Giraldo WATER FITNESS INSTRUCTOR-RESISTOR W[employer]ER Work Phone: [facility] 11-25-2021 15:04-0400 Diastolic blood pressure 83 mm[Hg] Fabi Giraldo WATER FITNESS INSTRUCTOR-RESISTOR W[employer]ER Work Phone: [facility] 11-25-2021 15:04-0400 Heart rate 96 /min Fabi Giraldo WATER FITNESS INSTRUCTOR-RESISTOR W[employer]ER Work Phone: [facility] 11-25-2021 15:04-0400 SaO2% (BldA) [Mass fraction] 98 % Fabi Giraldo WATER FITNESS INSTRUCTOR-RESISTOR W[employer]ER Work Phone: [facility] 11-25-2021 15:04-0400 Systolic blood pressure 132 mm[Hg] Fabi Giraldo WATER FITNESS INSTRUCTOR-RESISTOR W[employer]ER Work Phone: [facility] 11-02-2021 14:53-0400 Body height 165.1 cm Ashlny Gates Work Phone: [facility] Work Phone: 11-02-2021 14:53-0400 Body mass index (BMI) [Ratio] 58.24 kg/m2 Ashlyn Gates Work Phone: [facility] Work Phone: 11-02-2021 14:53-0400 Body surface area Derived from formula 2.51 m2 Ashlyn Gates Work Phone: [facility] Work Phone: 11-02-2021 14:53-0400 Body weight 158.76 kg Ashlyn Gates Work Phone: [facility] Work Phone: 11-02-2021 14:53-0400 Diastolic blood pressure 78 mm[Hg] Ashlyn Gates Work Phone: [facility] Work Phone: 11-02-2021 14:53-0400 Heart rate 88 /min Ashlyn Gates Work Phone: [facility] Work Phone: 11-02-2021 14:53-0400 SaO2% (BldA) [Mass fraction] 98 % Ashlyn Gates Work Phone: [facility] Work Phone: 11-02-2021 14:53-0400 Systolic blood pressure 118 mm[Hg] Ashlyn Gates Work Phone: [facility] Work Phone: 10-27-2021 15:07-0400 Body height 165.1 cm Fabi Giraldo APRN-RESISTOR WINDER Work Phone: [facility] 10-27-2021 15:07-0400 Body mass index (BMI) [Ratio] 58.74 kg/m2 Fabi Giraldo WATER FITNESS INSTRUCTOR-RESISTOR W[employer]ER Work Phone: [facility] 10-27-2021 15:07-0400 Body weight 160.12 kg Fabi Giraldo WATER FITNESS INSTRUCTOR-RESISTOR W[employer]ER Work Phone: [facility] 10-27-2021 15:07-0400 Diastolic blood pressure 86 mm[Hg] Fabi Giraldo WATER FITNESS INSTRUCTOR-RESISTOR W[employer]ER Work Phone: [facility] 10-27-2021 15:07-0400 Heart rate 98 /min Fabi Giraldo WATER FITNESS INSTRUCTOR-RESISTOR W[employer]ER Work Phone: [facility] 10-27-2021 15:07-0400 Systolic blood pressure 127 mm[Hg] Fabi Giraldo APRN-RESISTOR WINDER Work Phone: [facility] 09-29-2021 14:58-0400 Body height 165.1 cm Fabi Giraldo WATER FITNESS INSTRUCTOR-RESISTOR W[employer]ER Work Phone: [facility] 09-29-2021 14:58-0400 Body mass index (BMI) [Ratio] 58.24 kg/m2 Fabi Giraldo WATER FITNESS INSTRUCTOR-RESISTOR W[employer]ER Work Phone: [facility] 09-29-2021 14:58-0400 Body weight 158.76 kg Fabi Giraldo WATER FITNESS INSTRUCTOR-RESISTOR W[employer]ER Work Phone: [facility] 09-29-2021 14:58-0400 Diastolic blood pressure 84 mm[Hg] Fabi Giraldo WATER FITNESS INSTRUCTOR-RESISTOR WINDER Work Phone: [facility] 09-29-2021 14:58-0400 Heart rate 87 /min Fabi Giraldo WATER FITNESS INSTRUCTOR-RESISTOR W[employer]ER Work Phone: [facility] 09-29-2021 14:58-0400 SaO2% (BldA) [Mass fraction] 100 % Fabi Giraldo APRN-RESISTOR WINDER Work Phone: [facility] 09-29-2021 14:58-0400 Systolic blood pressure 127 mm[Hg] Fabi Dentt WATER FITNESS INSTRUCTOR-RESISTOR W[employer]ER Work Phone: [facility] 09-02-2021 15:11-0400 Diastolic blood pressure 88 mm[Hg] Fabi Giraldo WATER FITNESS INSTRUCTOR-RESISTOR W[employer]ER Work Phone: [facility] 09-02-2021 15:11-0400 Systolic blood pressure 132 mm[Hg] Fabi Giraldo WATER FITNESS INSTRUCTOR-RESISTOR W[employer]ER Work Phone: [facility] 09-02-2021 14:54-0400 Body height 165.1 cm Fabi Dentt WATER FITNESS INSTRUCTOR-RESISTOR W[employer]ER Work Phone: [facility] 09-02-2021 14:54-0400 Body mass index (BMI) [Ratio] 58.04 kg/m2 Fabi Giraldo WATER FITNESS INSTRUCTOR-RESISTOR W[employer]ER Work Phone: [facility] 09-02-2021 14:54-0400 Body weight 158.22 kg Fabianne Dentt WATER FITNESS INSTRUCTOR-RESISTOR W[employer]ER Work Phone: [facility] 09-02-2021 14:54-0400 Heart rate 84 /min Fabi Giraldo APRN-RESISTOR WINDER Work Phone: [facility] [employer] [facility] 09-02-2021 14:54-0400 SaO2% (BldA) [Mass fraction] 99 % Fabi Giraldo APRN-RESISTOR WINDER Work Phone: [facility] 08-03-2021 15:00-0500 Body height 165.1 cm Fabi Giraldo APRN-RESISTOR WINDER Work Phone: [facility] 08-03-2021 15:00-0500 Body mass index (BMI) [Ratio] 58.54 kg/m2 Fabi Giraldo APRN-RESISTOR W[employer]ER Work Phone: [facility] 08-03-2021 15:00-0500 Body weight 159.57 kg Fabi Giraldo APRN-RESISTOR W[employer]ER Work Phone: [facility] 08-03-2021 15:00-0500 Diastolic blood pressure 84 mm[Hg] Fabi Giraldo APRN-RESISTOR W[employer]ER Work Phone: [facility] 08-03-2021 15:00-0500 Heart rate 102 /min Fabi Giraldo APRN-RESISTOR W[employer]ER Work Phone: [facility] 08-03-2021 15:00-0500 Systolic blood pressure 126 mm[Hg] Fabi Giraldo APRN-RESISTOR W[employer]ER Work Phone: [facility] 07-06-2021 14:55-0500 Body height 165.1 cm Fabi Dentt WATER FITNESS INSTRUCTOR-RESISTOR [employer]ER Work Phone: [facility] 07-06-2021 14:55-0500 Body mass index (BMI) [Ratio] 58.78 kg/m2 Fabi Giraldo APRN-RESISTOR [employer] Work Phone: [facility] 07-06-2021 14:55-0500 Body temperature 97.7 [degF] Fabi Giraldo APRN-RESISTOR W[employer]ER Work Phone: [facility] 07-06-2021 14:55-0500 Body weight 160.21 kg Fabi Giraldo WATER FITNESS INSTRUCTOR-RESISTOR W[employer]ER Work Phone: [employer] [facility] 07-06-2021 14:55-0500 Diastolic blood pressure 87 mm[Hg] Fabi Giraldo WATER FITNESS INSTRUCTOR-RESISTOR W[employer]ER Work Phone: [employer] [facility] 07-06-2021 14:55-0500 Heart rate 90 /min Fabi Giraldo WATER FITNESS INSTRUCTOR-RESISTOR W[employer]ER Work Phone: [facility] 07-06-2021 14:55-0500 Respiratory rate 16 /min Fabi Giraldo WATER FITNESS INSTRUCTOR-RESISTOR W[employer]ER Work Phone: [facility] 07-06-2021 14:55-0500 SaO2% (BldA) [Mass fraction] 99 % Fabi Giraldo APRN-RESISTOR WINDER Work Phone: [employer] [facility] 07-06-2021 14:55-0500 Systolic blood pressure 128 mm[Hg] Fabi Giraldo APRN-RESISTOR W[employer]ER Work Phone: [employer] [facility] 07-05-2021 15:06-0500 Body height 165.1 cm [...] 14:04-0500 Body height 165.1 cm Fabi Giraldo WATER FITNESS INSTRUCTOR-RESISTOR W[employer]ER Work Phone: [employer] [facility] 04-30-2021 14:04-0500 Body mass index (BMI) [Ratio] 58.71 kg/m2 Fabi Giraldo WATER FITNESS INSTRUCTOR-RESISTOR WINDER Work Phone: [employer] [facility] 04-30-2021 14:04-0500 Body weight 160.03 kg Fabi Giraldo WATER FITNESS INSTRUCTOR-RESISTOR WINDER Work Phone: [employer] [facility] 04-30-2021 14:04-0500 Diastolic blood pressure 91 mm[Hg] Fabi Giraldo WATER FITNESS INSTRUCTOR-RESISTOR WINDER Work Phone: [facility] 04-30-2021 14:04-0500 Heart rate 87 /min Fabi Giraldo WATER FITNESS INSTRUCTOR-RESISTOR WINDER Work Phone: [facility] 04-30-2021 14:04-0500 Systolic blood pressure 142 mm[Hg] Fabi Giraldo WATER FITNESS INSTRUCTOR-RESISTOR WINDER Work Phone: [facility] 03-25-2021 15:29-0400 Body height 165.1 cm Ashlyn Gates Work Phone: [facility] Work Phone: 03-25-2021 15:29-0400 Body mass index (BMI) [Ratio] 59.57 kg/m2 Ashlyn Gates Work Phone: [facility] Work Phone: 03-25-2021 15:29-0400 Body surface area Derived from formula 2.53 m2 Ashlyn Gates Work Phone: [facility] Work Phone: 03-25-2021 15:29-0400 Body weight 162.38 kg Ashlyn Gates Work Phone: [facility] Work Phone: 03-25-2021 15:29-0400 Diastolic blood pressure 78 mm[Hg] Ashlyn Gates Work Phone: [facility] Work Phone: 03-25-2021 15:29-0400 Heart rate 84 /min Ashlyn Gates Work Phone: [facility] Work Phone: 03-25-2021 15:29-0400 Systolic blood pressure 136 mm[Hg] Ashlyn Gates Work Phone: [facility] Work Phone: 12-29-2020 15:15-0400 Body temperature 97.6 [degF] Ashlyn Gates [facility] Phone[facility] Work Phone: 12-29-2020 15:15-0400 Body [...] 15:37-0400 Body height 165.1 cm Fabi Giraldo WATER FITNESS INSTRUCTOR-RESISTOR WINDER Work Phone: [employer] [facility] 12-22-2020 15:37-0400 Body mass index (BMI) [Ratio] 59.34 kg/m2 Fabi Giraldo WATER FITNESS INSTRUCTOR-RESISTOR WINDER Work Phone: [employer] [facility] 12-22-2020 15:37-0400 Body weight 161.75 kg Fabi Giraldo WATER FITNESS INSTRUCTOR-RESISTOR WINDER Work Phone: [employer] [facility] 12-22-2020 15:37-0400 Diastolic blood pressure 91 mm[Hg] Fabi Giraldo WATER FITNESS INSTRUCTOR-RESISTOR WINDER Work Phone: [facility] 12-22-2020 15:37-0400 Heart rate 90 /min Fabi Giraldo WATER FITNESS INSTRUCTOR-RESISTOR WINDER Work Phone: [employer] [facility] 12-22-2020 15:37-0400 SaO2% (BldA) [Mass fraction] 98 % Fabi Giraldo WATER FITNESS INSTRUCTOR-RESISTOR WINDER Work Phone: [facility] 12-22-2020 15:37-0400 Systolic blood pressure 143 mm[Hg] Fabi Giraldo WATER FITNESS INSTRUCTOR-RESISTOR WINDER Work Phone: [facility] 12-08-2020 15:28-0400 Body height 165.1 cm [...] 12-08-2020 15:28-0400 Heart rate 88 /min Ashlyn Gates Work Phone: [facility] Work Phone: 12-08-2020 15:28-0400 Respiratory rate 12 /min Ashlyn Diana Gates Work Phone: [facility] Work Phone: 12-08-2020 15:28-0400 Systolic blood pressure 147 mm[Hg] Ashlyn Gates Work Phone: [facility] Work Phone: 12-02-2020 16:48-0400 Body height 165.1 cm [place] Arnold PA-C Work Phone: [facility] 12-02-2020 16:48-0400 Body mass index (BMI) [Ratio] 58.91 kg/m2 [place] Arnold PA-C Work Phone: [facility] 12-02-2020 16:48-0400 Body temperature 96.21 [degF] [place] Arnold PA-C Work Phone: [facility] [employer] [facility] 12-02-2020 16:48-0400 Body weight 160.57 kg [place] Arnold PA-C Work Phone: [facility] [employer] [facility] 12-02-2020 16:48-0400 Diastolic blood pressure 91 mm[Hg] [place] Arnold PA-C Work Phone: [facility] 12-02-2020 16:48-0400 Heart rate 97 /min [place] Arnold PA-C Work Phone: [facility] [employer] [facility] 12-02-2020 16:48-0400 Respiratory rate 18 /min [place] Arnold PA-C Work Phone: [facility] 12-02-2020 16:48-0400 SaO2% (BldA) [Mass fraction] 99 % [place] Arnold PA-C Work Phone: [facility] 12-02-2020 16:48-0400 Systolic blood pressure 152 mm[Hg] [place] Arnold PA-C Work Phone: [facility] 11-03-2020 14:26-0400 Body height 165.1 cm Zenia Arnold PA-C Work Phone: [facility] 11-03-2020 14:26-0400 Body mass index (BMI) [Ratio] 59.34 kg/m2 [place] Ezekiel PA-C Work Phone: [facility] 11-03-2020 14:26-0400 Body temperature 98.1 [degF] Zenia Kendalold PA-C Work Phone: [facility] 11-03-2020 14:26-0400 Body weight 161.75 kg [place] Ezekiel PA-C Work Phone: [facility] 11-03-2020 14:26-0400 Diastolic blood pressure 98 mm[Hg] [place] Falcon PA-C Work Phone: [facility] 11-03-2020 14:26-0400 Heart rate 104 /min Zenia Kendalold PA-C Work Phone: [facility] 11-03-2020 14:26-0400 Respiratory rate 18 /min [place] Kendalold PA-C Work Phone: [facility] 11-03-2020 14:26-0400 SaO2% (BldA) [Mass fraction] 99 % Zeniabronwyn Falcon PA-C Work Phone: [facility] 11-03-2020 14:26-0400 Systolic blood pressure 146 mm[Hg] Zenia Falcon PA-C Work Phone: [facility] 10-02-2020 14:41-0400 Diastolic blood pressure 86 mm[Hg] Charlotte Farah MD Work Phone: [facility] 10-02-2020 14:41-0400 Systolic blood pressure 140 mm[Hg] Charlotte Farah MD Work Phone: [facility] 10-02-2020 14:13-0400 Body height 165.1 cm Charlotte Farah MD Work Phone: [facility] 10-02-2020 14:13-0400 Body mass index (BMI) [Ratio] 60.21 kg/m2 Charlotte Farah MD Work Phone: [facility] 10-02-2020 14:13-0400 Body weight 164.11 kg Charlotte Farah MD Work Phone: [facility] 10-02-2020 14:13-0400 Heart rate 92 /min Charlotte Farah MD Work Phone: [facility] 09-04-2020 15:56-0400 BP Diastolic 86 mm[Hg] [facility] 09-04-2020 15:56-0400 BP Systolic 142 mm[Hg] [facility] 09-04-2020 15:39-0400 BMI (Body Mass Index) 61.17 kg/m2 [facility] 09-04-2020 15:39-0400 Body weight 166.74 kg [facility] 09-04-2020 15:39-0400 Height 165.1 cm [facility] 09-04-2020 15:39-0400 Pulse (Heart Rate) 90 /min [facility] 08-06-2020 15:33-0500 BMI (Body Mass Index) 62.57 kg/m2 [facility] 08-06-2020 15:33-0500 Body weight 170.55 kg [facility] 08-06-2020 15:33-0500 BP Diastolic 101 mm[Hg] [facility] 08-06-2020 15:33-0500 BP Systolic 155 mm[Hg] [facility] 08-06-2020 15:33-0500 Height 165.1 cm [facility] 08-06-2020 15:33-0500 Pulse (Heart Rate) 96 /min [facility] 05-07-2020 17:21-0500 BMI (Body Mass Index) 62.24 kg/m2 Christopher Keenan [facility] Work Phone: 05-07-2020 17:21-0500 Body weight 169.65 kg Christopher Keenan [facility] Work Phone: 05-07-2020 17:21-0500 BP Diastolic 102 mm[Hg] Christopher Keenan [facility] Work Phone: 05-07-2020 17:21-0500 BP Systolic 150 mm[Hg] Christopher Keenan [facility] Work Phone: 05-07-2020 17:21-0500 BSA (Body Surface Area) 2.58 m2 Christopher Keenan [facility] Work Phone: 05-07-2020 17:21-0500 Height 165.1 cm Christopher Keenan [facility] Work Phone: 05-07-2020 17:21-0500 Pulse (Heart Rate) 80 /min Christopher Keenan [facility] Work Phone: 09-02-2019 17:30-0400 BMI (Body Mass Index) 56.41 kg/m2 Christopher Keenan [facility] Work Phone: 09-02-2019 17:30-0400 Body Temperature 98.1 [degF] Christopher Keenan [facility] Work Phone: 09-02-2019 17:30-0400 Body weight 153.77 kg Christopher Keenan [facility] Work Phone: 09-02-2019 17:30-0400 BP Diastolic 89 mm[Hg] Christopher Keenan [facility] Work Phone: 09-02-2019 17:30-0400 BP Systolic 148 mm[Hg] Christopher Keenan [facility] Work Phone: 09-02-2019 17:30-0400 BSA (Body Surface Area) 2.48 m2 Christopher Keenan [facility] Work Phone: 09-02-2019 17:30-0400 Height 165.1 cm Christopher Keenan [facility] Work Phone: 09-02-2019 17:30-0400 Pulse (Heart Rate) 108 /min Christopher Keenan [facility] Work Phone: 09-02-2019 17:30-0400 Respiratory Rate 16 /min Christopher Keenan [facility] Work Phone: 03-25-2019 12:23-0400 BMI (Body Mass Index) 56.41 kg/m2 Christopher Keenan [facility] Work Phone: 03-25-2019 12:23-0400 Body weight 153.77 kg Christopher Keenan [facility] Work Phone: 03-25-2019 12:23-0400 BP Diastolic 82 mm[Hg] Christopher Keenan [facility] Work Phone: Comment on above: Location: LUE; Position: Sitting 03-25-2019 12:23-0400 BP Systolic 130 mm[Hg] Christopher Keenan [facility] Work Phone: Comment on above: Location: LUE; Position: Sitting 03-25-2019 12:23-0400 BSA (Body Surface Area) 2.48 m2 Christopher Keenan [facility] Work Phone: 03-25-2019 12:23-0400 Height 165.1 cm Christopher Keenan [facility] Work Phone: 03-25-2019 12:23-0400 Pulse (Heart Rate) 92 /min Christopher Keenan [facility] Work Phone: 03-04-2019 17:31-0400 BMI (Body Mass Index) 57.52 kg/m2 Christopher Keenan -[facility] Work Phone: 03-04-2019 17:31-0400 Body weight [...] Date Encounter Type Care Provider Facility Start: 02-19-2025 ambulatory Senthil Webster ty:[facility] Start: 01-29-2025 End: 01-29-2025 [facility] Start: 01-29-2025 End: 01-29-2025 Office outpatient visit 25 minutes Ashlyn Gates PA-C Work Phone: [facility] Comment on above: Glucose intolerance (impaired glucose tolerance) (Primary Dx); Dyspepsia; Hypercholesterolemia; Benign essential hypertension; Class 3 severe obesity due to excess calories with serious comorbidity and body mass index (BMI) of 60.0 to 69.9 in adult; Low vitamin B12 level; Low ferritin; BEST (obstructive sleep apnea) Start: 01-24-2025 End: 01-24-2025 ambulatory Ashlyn LOPEZ Work Phone: -Laboratory Start: 01-24-2025 End: 01-24-2025 Patient encounter procedure Ashlyn LOPEZ -Laboratory Work Phone: Start: 01-24-2025 End: 01-24-2025 ambulatory Ashlyn LOPEZ Facility:[facility] Start: 10-30-2024 End: 10-30-2024 Office outpatient visit 25 minutes Ashlyn Gates PA-C Work Phone: [facility] Comment on above: BEST (obstructive sle ep apnea) (Primary Dx); JESSICA (generalized anxiety disorder); Benign essential hypertension; Paroxysmal atrial fibrillation (Multi); Class 3 severe obesity due to excess calories with serious comorbidity and body mass index (BMI) of 60.0 to 69.9 in adult Start: 10-30-2024 End: 10-30-2024 ambulatory [facility] Start: 09-23-2024 End: 09-23-2024 ambulatory Ashlyn LOPEZ Facility[facility] Start: 09-18-2024 ambulatory Danial Hernández Facility :[facility] Start: 09-11-2024 End: 09-11-2024 Office outpatient visit 25 minutes Ashlyn LUBINC Work Phone: [facility] Comment on above: BEST (obstructive sle ep apnea) (Primary Dx); Depression, major, single episode, mild (CMS-HCC); JESSICA (generalized anxiety disorder); Paroxysmal atrial fibrillation (Multi); Benign essential hypertension; Class 3 severe obesity due to excess calories with serious comorbidity and body mass index (BMI) of 60.0 to 69.9 in adult; Binge eating disorder, unspecified severity Start: 09-11-2024 End: 09-11-2024 ambulatory [facility] Start: 09-03-2024 End: 09-04-2024 ambulatory [facility] Start: 08-15-2024 End: 08-15-[address] Chucky Thakkar MD -[facility] Work Phone: Start: 08-15-2024 End: 08-15-2024 ambulatory Chucky Thakkar Facility:[facility] Start: 08-07-2024 End: 08-07-[address] Danial Hernández MD -[facility] Work Phone: Start: 08-07-2024 End: 08-07-2024 ambulatory Ashlynphylicia Gates [place] Work Phone: [facility] Work Phone: Start: 08-07-2024 End: 08-07-2024 Office outpatient visit 25 minutes Fabi DENGRESISTOR WINDER Work Phone: [facility] Comment on above: BMI 60.0-69.9, adult (Primary Dx); Binge eating disorder, unspecified severity; Atrial fibrillation, unspecified type; Benign essential hypertension; Impaired glucose tolerance Start: 08-07-2024 ambulatory ASHLYN GATES [facility] Start: 08-07-2024 End: 08-07-2024 ambulatory Danial Hernández Facility:[facility] Start: 08-02-2024 End: 08-02-[address] Danial Hernández MD -[facility] Work Phone: Start: 08-02-2024 End: 08-02-2024 ambulatory Danial Hernández Facility:[facility] Start: 08-01-2024 End: 08-01-2024 Emergency department patient visit Dr. Jose Ramon Castro DO -Emergency Department Work Phone: Start: 07-30-2024 End: 07-30-2024 Transitional care manage srvc 14 day discharge Desiree Sin MD Work Phone: [facility] Comment on above: Paroxysmal atrial fi brillation (Multi) (Primary Dx); Anxiety; Snoring; Family history of sleep apnea; Morbid obesity with BMI of 60.0-69.9, adult (Multi); Glucose intolerance (impaired glucose tolerance); Benign essential hypertension; Palpitations Start: 07-30-2024 End: 07-30-2024 ambulatory [facility] Amb[facility] Start: 07-24-2024 Non-patient / Non-visit Dr. Nirmala Arenas DO -[facility] Work Phone: Start: 07-24-2024 Non-patient / Non-visit Dr. Paige Hernández MD -[facility] Start: 07-23-2024 ambulatory Ashlynphylicia Walker all [place] Facility:[facility] Start: 07-23-2024 End: 07-24-2024 Evaluation and management of inpatient Dr. Nirmala Arenas DO [facility] Work Phone: Start: 07-23-2024 Non-patient / Non-visit Dr. Marlin reyes MD -[facility] Work Phone: Start: 07-23-2024 ambulatory Ashlynphylicia Walker all [place] Facility:[facility] Start: 07-23-2024 Non-patient / Non-visit Dr. Carmenza Craig MD -[facility] Start: 07-22-2024 ambulatory Ashlynphylicia Walker all [place] Facility:[facility] Start: 07-22-2024 Non-patient / Non-visit Dr. Sindi Hernandez DO [facility] Work Phone: Start: 07-02-2024 End: 07-02-2024 ambulatory [facility] Start: 06-19-2024 End: 06-19-2024 Office outpatient visit 25 minutes Ashlyn LOPEZ-C Work Phone: [facility] Comment on above: Glucose intolerance (impaired glucose tolerance) (Primary Dx); Low vitamin B12 level; Benign essential hypertension; Hypercholesterolemia; Low ferritin; Class 3 severe obesity due to excess calories with serious comorbidity and body mass index (BMI) of 60.0 to 69.9 in adult; Depression, major, single episode, mild (CMS-HCC) Start: 06-19-2024 End: 06-19-2024 ambulatory [facility] Start: 06-17-2024 End: 06-17-2024 Patient encounter procedure Ashlyn LOPEZ -Laboratory Work Phone: Start: 06-17-2024 End: 06-17-2024 ambulatory Ashlyn Gates [place] Facility:[facility] Start: 05-17-2024 End: 05-17-2024 Office outpatient visit 15 minutes Fabi Kristal WATER FITNESS INSTRUCTOR-RESISTOR WINDER Work Phone: [facility] Comment on above: Binge eating disorde r, unspecified severity Start: 05-17-2024 ambulatory [facility] Start: 04-10-2024 End: 04-10-2024 Office outpatient visit 15 minutes Fabi Giraldo WATER FITNESS INSTRUCTOR-RESISTOR WINDER Work Phone: [facility] Comment on above: Binge eating disorde r, unspecified severity (Primary Dx) Start: 04-10-2024 [facility] Start: 03-07-2024 End: 03-07-2024 Office outpatient visit 15 minutes Fabi Giraldo WATER FITNESS INSTRUCTOR-RESISTOR WINDER Work Phone: [facility] Comment on above: Binge eating disorde r, unspecified severity (Primary Dx); Benign essential hypertension Start: 03-07-2024 [facility] Start: 01-21-2024 End: 01-21-2024 [facility] Start: 12-18-2023 End: 12-18-2023 Office outpatient visit 25 minutes Ashlyn Gates PA-C Work Phone: [facility] Comment on above: Benign essential hyp ertension (Primary Dx); Low vitamin B12 level; Hypercholesterolemia; Glucose intolerance (impaired glucose tolerance); Low ferritin; 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 (Multi); Depression, major, single episode, mild (CMS-HCC); JESSICA (generalized anxiety disorder) Start: 12-08-2023 End: 12-08-2023 Office outpatient visit 15 minutes Fabi Giraldo APRN-RESISTOR WINDER Work Phone: [facility] Comment on above: Binge eating disorde r (Primary Dx); Benign essential hypertension Start: 12-08-2023 [facility] Start: 09-07-2023 End: 09-07-2023 Office outpatient visit 15 minutes Fabi Giraldo WATER FITNESS INSTRUCTOR-RESISTOR WINDER Work Phone: [facility] Comment on above: Binge eating disorde r Start: 09-07-2023 ambulatory SELF SELF [facility] Start: 08-12-2023 End: 08-12-2023 Patient encounter procedure Patricia Ramey WATER FITNESS INSTRUCTOR-RESISTOR WINDER Work Phone: [facility] Comment on above: Acute viral syndrome (Primary Dx) Start: 05-25-2023 End: 05-25-2023 Office outpatient visit 15 minutes Fabi Giraldo WATER FITNESS INSTRUCTOR-RESISTOR WINDER Work Phone: [facility] Comment on above: Binge eating disorde r Start: 05-23-2023 End: 05-23-2023 Office outpatient visit 25 minutes Ashlyn LUBINC Work Phone: [facility] Comment on above: Benign essential hyp ertension (Primary Dx); Hypercholesterolemia; 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 (CMS/HCC); Glucose intolerance (impaired glucose tolerance); Low vitamin B12 level; Low ferritin; Depression, major, single episode, mild (CMS/HCC); JESSICA (generalized anxiety disorder); Fibromyalgia; Decreased libido Start: 05-17-2023 End: 05-17-2023 ambulatory [facility] Work Phone: Start: 05-17-2023 End: 05-17-2023 Patient encounter procedure [facility] Work Phone: Start: 02-15-2023 End: 02-15-2023 Office outpatient visit 15 minutes Fabi Giraldo WATER FITNESS INSTRUCTOR-RESISTOR WINDER Work Phone: [facility] Comment on above: Binge eating disorde r (Primary Dx); Benign essential hypertension Start: 01-10-2023 Patient encounter procedure Ra aroldo Gates Work Phone: [facility] Work Phone: Start: 01-10-2023 ambulatory Ashlyn Gates Facility:[id number] Start: 11-24-2022 End: 11-24-2022 Office outpatient visit 15 minutes Fabi Giraldo APRN-RESISTOR WINDER Work Phone: [facility] Comment on above: Binge eating disorde r (Primary Dx); Benign essential hypertension Start: 11-01-2022 End: 11-01-2022 Office outpatient visit 25 minutes Ashlyn Gates PA-C Work Phone: [facility] Comment on above: Hypercholesterolemia (Primary Dx); Dyspepsia; Benign essential hypertension; Glucose intolerance (impaired glucose tolerance); Low vitamin B12 level; Low ferritin; Fibromyalgia; Depression, major, single episode, mild (CMS/HCC); JESSICA (generalized anxiety disorder); 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 Ashlyn Gates Facility:[id number] Start: 09-16-2022 End: 09-16-2022 ambulatory [facility] Work Phone: Start: 09-16-2022 End: 09-16-2022 Patient encounter procedure [facility] Start: 09-03-2022 End: 09-03-2022 Emergency department patient visit JOHN LOPEZ Work Phone: [facility] Start: 08-30-2022 End: 08-30-2022 Office outpatient visit 15 minutes Fabi Giraldo APRN-Zuppler Work Phone: [facility] Comment on above: Binge eating disorde r (Primary Dx); Benign essential hypertension Start: 07-26-2022 End: 07-26-2022 Office outpatient visit 15 minutes Fabi Giraldo APRN-RESISTOR WINDER Work Phone: [facility] Comment on above: Binge eating disorde r Start: 07-18-2022 ambulatory Ms. Ashlyn lebron [place] Facility:[id number] Start: 06-28-2022 End: 06-28-2022 Office outpatient visit 15 minutes Fabi Giraldo WATER FITNESS INSTRUCTOR-RESISTOR WINDER Work Phone: [facility] Comment on above: Binge eating disorde r (Primary Dx) Start: 05-18-2022 End: 05-18-2022 Patient encounter procedure PA Ashlyn LOPEZ Work Phone: [facility] Start: 05-03-2022 ambulatory Ms. ASHLYN Ortiz YAJAIRA Facility:[id number] Start: 05-03-2022 Office outpatient vi sit 25 minutes Ashlyn Ortiz Yajaira Work Phone: [facility] Work Phone: Start: 05-02-2022 End: 05-02-2022 ambulatory [facility] Work Phone: Start: 05-02-2022 End: 05-02-2022 Patient encounter procedure [facility] Start: 04-26-2022 End: 04-26-2022 Office outpatient visit 15 minutes Fabi Giraldo WATER FITNESS INSTRUCTOR-RESISTOR WINDER Work Phone: [facility] Comment on above: Benign essential hyp ertension (Primary Dx); BMI 50.0-59.9, adult Start: 04-11-2022 End: 04-11-2022 Emergency department patient visit [facility] Start: 03-24-2022 End: 03-24-2022 Office outpatient visit 25 minutes Fabi Giraldo WATER FITNESS INSTRUCTOR-RESISTOR WINDER Work Phone: [facility] Comment on above: Benign essential hyp ertension (Primary Dx); Metabolic syndrome; Fatigue, unspecified type Start: 02-24-2022 End: 02-24-2022 Office outpatient visit 15 minutes Fabi Giraldo WATER FITNESS INSTRUCTOR-RESISTOR WINDER Work Phone: [facility] Comment on above: BMI 50.0-59.9, adult Start: 01-26-2022 End: 01-26-2022 Office outpatient visit 15 minutes Fabi Giraldo WATER FITNESS INSTRUCTOR-Zuppler Work Phone: [facility] [facility] Comment on above: Benign essential hyp ertension (Primary Dx); BMI 50.0-59.9, adult Start: 01-25-2022 Patient encounter procedure Ra aroldo Gates Work Phone: -[facility] Work Phone: Start: 01-25-2022 ambulatory Ms. Ashlyn lebron Yajaira Facility:[id number] Start: 11-25-2021 End: 11-25-2021 Office outpatient visit 15 minutes Fabi Giraldo [employer] INSTRUCTOR[employer] Work Phone: [facility] Comment on above: Class 3 severe obesi ty with serious comorbidity and body mass index (BMI) of 60.0 to 69.9 in adult, unspecified obesity type Start: 11-04-2021 Encounter for gyneco logical examination (general) (routine) without abnormal findings Ashlyn Gates Work Phone: [facility] Medicine Work Phone: Comment on above: [facility]; Start: 11-02-2021 Office outpatient vi sit 25 minutes Ashlyn B Yajaira Work Phone: [facility] Internal Medicine Work Phone: Start: 11-02-2021 ambulatory Ms. ASHLYN Ortiz YAJAIRA Facility:[id number] Start: 10-27-2021 End: 10-27-2021 Office outpatient visit 15 minutes Fabi Giraldo [employer] INSTRUCTOR[employer] Work Phone: [facility] Comment on above: Benign essential hyp ertension (Primary Dx); Class 3 severe obesity with serious comorbidity and body mass index (BMI) of 60.0 to 69.9 in adult, unspecified obesity type Start: 09-29-2021 End: 09-29-2021 Office outpatient visit 15 minutes Fabi Giraldo [employer] FITNESS INSTRUCTOR-[employer]ISTOR [employer] Work Phone: [facility] Comment on above: Benign essential hyp ertension (Primary Dx); Class 3 severe obesity with serious comorbidity and body mass index (BMI) of 60.0 to 69.9 in adult, unspecified obesity type Start: 09-02-2021 End: 09-02-2021 Office outpatient visit 15 minutes Fabi Grialdo [employer] Work Phone: [facility] Comment on above: Benign essential hyp ertension (Primary Dx); Class 3 severe obesity with serious comorbidity and body mass index (BMI) of 60.0 to 69.9 in adult, unspecified obesity type Start: 08-03-2021 End: 08-03-2021 Office outpatient visit 15 minutes Fabi Giraldo [employer] Work Phone: [facility] Comment on above: Benign essential hyp ertension (Primary Dx); Class 3 severe obesity with serious comorbidity and body mass index (BMI) of 60.0 to 69.9 in adult, unspecified obesity type Start: 07-06-2021 End: 07-06-2021 Office outpatient visit 15 minutes Fabi Giraldo [employer] Work Phone: [facility] Comment on above: Class 3 severe obesi ty with serious comorbidity and body mass index (BMI) of 60.0 to 69.9 in adult, unspecified obesity type Start: 07-05-2021 Patient encounter procedure Ra aroldo Gates Work Phone: -[facility] Work Phone: Start: 06-21-2021 AUDIT Ashlyn mendes Work Phone: [facility] Internal Medicine Work Phone: Start: 06-14-2021 AUDIT Ashlyn mendes Work Phone: [facility] Internal Medicine Work Phone: Start: 05-11-2021 Office outpatient vi sit 25 minutes Ashlyn Gates Work Phone: [facility] Internal Medicine Work Phone: Start: 04-30-2021 End: 04-30-2021 Office outpatient visit 15 minutes Fabi Giraldo [employer] INSTRUCTOR[employer]ISTOR [employer] Work Phone: [facility] Comment on above: Class 3 severe obesi ty with serious comorbidity and body mass index (BMI) of 60.0 to 69.9 in adult, unspecified obesity type Start: 03-25-2021 Office outpatient vi sit 15 minutes Ashlyn Gates Work Phone: [facility] Internal Medicine Work Phone: Start: 12-29-2020 FUV, Provider: Christopher Keenan, Status: Pen, Time: 3:00 PM Ashlyn Gates Work Phone: [facility] Work Phone: Start: 12-29-2020 Patient encounter procedure aroldo Diana Yajaira Work Phone: [facility] Work Phone: Start: 12-28-2020 Chart Update Ashlyn mendes Work Phone: [facility] Work Phone: Start: 12-22-2020 AUDIT Ashlyn mendes Work Phone: [facility] Work Phone: Start: 12-22-2020 End: 12-22-2020 Office outpatient visit 15 minutes Fabi Giraldo W[employer] FITNESS INSTRUCTOR-[employer]ISTOR [employer] Work Phone: [facility] Comment on above: Benign essential hyp ertension (Primary Dx); Class 3 severe obesity with serious comorbidity and body mass index (BMI) of 60.0 to 69.9 in adult, unspecified obesity type Start: 12-11-2020 AUDIT Ashlyn mendes Work Phone: [facility] Work Phone: Start: 12-02-2020 End: 12-02-2020 Office outpatient visit 15 minutes Zenia Falcon PA-C Work Phone: [facility] Comment on above: Acute cystitis with hematuria (Primary Dx) Start: 11-03-2020 End: 11-03-2020 Office outpatient visit 15 minutes Zenia Falcon PA-C Work Phone: [facility] Comment on above: Acute maxillary sinu sitis, recurrence not specified (Primary Dx) Start: 10-20-2020 Cancer cervix - scre ening done Ashlyn Gates Work Phone: -[facility] Work Phone: Comment on above: [facility]OM[facility]; Start: 10-20-2020 Encounter for gyneco logical examination (general) (routine) without abnormal findings Ashlyn Gates Work Phone: -[facility] Internal Medicine Work Phone: Comment on above: WOMENS CARE; Start: 10-02-2020 End: 10-02-2020 Office outpatient visit 15 minutes Charlotte Farah MD Work Phone: [facility] Comment on above: Stress (Primary Dx); Class 3 severe obesity with serious comorbidity and body mass index (BMI) of 60.0 to 69.9 in adult, unspecified obesity type Start: 09-04-2020 End: 09-04-2020 Office outpatient visit 15 minutes Fabi Giraldo Work Phone: [facility] Comment on above: Fatigue, unspecified type (Primary Dx); Class 3 severe obesity with serious comorbidity and body mass index (BMI) of 60.0 to 69.9 in adult, unspecified obesity type Start: 08-06-2020 End: 08-06-2020 Office outpatient new 45 minutes Fabi Giraldo Work Phone: [facility] Comment on above: Benign essential hyp ertension (Primary Dx); Class 3 severe obesity with serious comorbidity and body mass index (BMI) of 60.0 to 69.9 in adult, unspecified obesity type Start: 05-07-2020 Patient encounter procedure Christopher Keenan -[facility] Internal Medicine Work Phone: Start: 03-26-2020 Patient encounter procedure Christopher Duttonar -[facility] Work Phone: Start: 03-02-2020 Patient encounter procedure Christopher Duttonar -[facility] Work Phone: Start: 09-25-2019 Patient encounter procedure Christopher Keenan -[facility] Work Phone: Start: 09-02-2019 Patient encounter procedure Christopher Duttonar -[facility] Internal [facility] Work Phone: Start: 03-25-2019 Patient encounter procedure Christopher Keenan -[facility] Work Phone: Start: 03-04-2019 Patient encounter procedure Christopher Keenan [facility] Work Phone: Start: 09-17-2018 End: 09-18-2018 Patient encounter procedure Christopher Keenan Facility:[facility] Start: 09-10-2018 End: 09-11-2018 Patient encounter procedure ASHLYN GATES Facility:[facility] Start: 09-07-2018 End: 09-08-2018 Patient encounter procedure ASHLYN GATES Facility:[facility] Start: 06-25-2018 End: 06-26-2018 Patient encounter procedure ASHLYN GATES Facility:[facility] Start: 06-22-2018 End: 06-23-2018 Patient encounter procedure ASHLYN GATES Facility:[facility] Start: 06-19-2018 End: 06-20-2018 Patient encounter procedure ASHLYN GATES Facility:[facility] Start: 01-24-2018 End: 01-25-2018 Patient encounter procedure Nirali Portillo Facility:[facility] Start: 01-11-2018 End: 01-12-2018 Patient encounter procedure Nirali Portillo Facility:[facility] Start: 01-10-2018 End: 01-11-2018 Patient encounter procedure Nirali Portillo Facility:[facility] Start: 01-02-2018 End: 01-03-2018 Patient encounter procedure Christopher Jonesprince Facility:[facility] Start: 11-28-2017 End: 11-29-2017 Patient encounter procedure ASHLYN GATES Facility:[facility] Start: 11-22-2017 End: 11-23-2017 Patient encounter procedure ASHLYN GATES Facility:[facility] Start: 11-20-2017 End: 11-21-2017 Patient encounter procedure Dino Dean Facility:[facility] Start: 11-17-2017 Patient encounter procedure Regulo Pleitez Facility:[facility] Start: 11-16-2017 End: 11-16-2017 Patient encounter procedure Regulo Franco Tavallaee Facility:[facility] Start: 11-14-2017 End: 11-15-2017 Patient encounter procedure ASHLYN GATES Facility:[facility] Start: 10-24-2017 Patient encounter procedure Melba Herndon Gissel Facility:[facility] Start: 10-06-2017 Patient encounter procedure Melba Herndon Chauhan Facility:[facility] Start: 10-02-2017 End: 10-03-2017 Patient encounter procedure Christopher Jonesprince Facility:[facility] Start: 09-28-2017 End: 09-29-2017 Patient encounter procedure ASHLYN GATES Facility:[facility] Procedures Date Procedure Procedure Detail Performing Clinician Start: 01-24-2025 Total iron binding capacity measurement Ashlyn LOPEZ Work Phone: Start: 01-24-2025 Lipid 1996 panel - Serum or Plasma Christopher Gates PA-C Work Phone: Start: 08-15-2024 Evaluation of diagnostic study results [...] Work Phone: Start: 08-12-2023 Iaadiadoo influenza Patricia Kimbroughta WATER FITNESS INSTRUCTOR-[employer]ISTOR [employer] Work Phone: Start: 08-12-2023 SARS-CoV-2 (COVID-19) Ag [Presence] in Respiratory specimen by Rapid immunoassay Patricia Maura Kimbroughta WATER FITNESS INSTRUCTOR-RESISTOR [employer] Work Phone: Start: 03-24-2021 Lipid 1996 panel - Serum or Plasma Christopher Gates PA-C Work Phone: Start: 12-02-2020 Urnls dip stick/tablet rgnt auto w/o microscopy Zenia Falcon PA-C Work Phone: Start: 11-16-2020 Microscopic observation [Identifier] in Cervix by Cyto stain Ashlyn Gates PA-C Work Phone: Start: 03-26-2020 Blood count complete auto&auto difrntl wbc Christopher Zumbar Start: 03-26-2020 Comprehensive metabolic 2000 panel Zacha ry Zumbar Start: 03-26-2020 Cyanocobalamin vitamin b-12 Christopher Zumb ar Start: 03-26-2020 Hemoglobin glycosylated a1c Christopher Zumb ar Start: 03-26-2020 Lipid panel Christopher Zumbar Start: 09-25-2019 Blood count complete auto&auto difrntl wbc Christopher Zumbar Start: 09-25-2019 Comprehensive metabolic 2000 panel Zacha ry Zumbar Start: 09-25-2019 Cyanocobalamin vitamin b-12 Christopher Zumb ar Start: 09-25-2019 Hemoglobin glycosylated a1c Christopher Zumb ar Start: 09-25-2019 Lipid panel Christopher Zumbar Start: 03-25-2019 Assay of free thyroxine Christopher Zumbar Start: 03-25-2019 Assay of thyroid stimulating hormone tsh Christopher Zumbar Start: 03-25-2019 Comprehensive metabolic 2000 panel Zacha ry Zumbar Start: 03-25-2019 Cyanocobalamin vitamin b-12 Christopher Zumb ar Start: 11-16-2017 Colonoscopy Ashlyn Gates Work Phone: Appendectomy Christopher Zumbar Colonoscopy Christopher Zumbar End: 11-16-2017 Colonoscopy Christopher Keenan Enteric Bacteriology Esophagogastroduodenoscopy Z achary Zumbar Extraction of wisdom tooth Z achary Zumbar Lactoferrin measurement Plan of Treatment Date Care Activity Detail Author Start: 2046 Zoster Vaccines (1 o f 2) Zoster Vaccines (1 of 2) [facility] Start: 08-11-2031 DTaP/Tdap/Td Vaccine s (7 - Td or Tdap) DTaP/Tdap/Td Vaccines (7 - Td or Tdap) [facility] Start: 08-11-2031 Tetanus vaccination [facility]ETANUS [facility] Start: 01-24-2030 Lipid panel Lipid Panel [facility] Start: 03-24-2026 Lipid panel Lipid Panel [facility] Start: 01-24-2026 Diabetes mellitus screening Diabetes Screening [facility] Start: 07-29-2025 End: 01-29-2026 CBC W Auto Differential panel - Blood CBC and Auto Differential Lab Routine Hypercholesterolemia Benign essential hypertension Glucose intolerance (impaired glucose tolerance) Expected: 07/29/2025 (Approximate), Expires: 01/29/2026 [facility] Service Area Work Phone: Comment on above: Expected: 07/29/2025 (Approximate), Expires: 01/29/2026 Start: 07-29-2025 End: 01-29-2026 Cobalamin (Vitamin B12) [Mass/volume] in Serum or Plasma Vitamin B12 Lab Routine Hypercholesterolemia Benign essential hypertension Glucose intolerance (impaired glucose tolerance) Low vitamin B12 level Expected: 07/29/2025 (Approximate), Expires: 01/29/2026 [facility] Work Phone: Comment on above: Expected: 07/29/2025 (Approximate), Expires: 01/29/2026 Start: 07-29-2025 End: 01-29-2026 Comprehensive metabolic 2000 panel - Serum or Plasma Comprehensive Metabolic Panel Lab Routine Hypercholesterolemia Benign essential hypertension Glucose intolerance (impaired glucose tolerance) Expected: 07/29/2025 (Approximate), Expires: 01/29/2026 [facility] Work Phone: Comment on above: Expected: 07/29/2025 (Approximate), Expires: 01/29/2026 Start: 07-29-2025 End: 01-29-2026 Ferritin [Mass/volume] in Serum or Plasma Ferritin Lab Routine Hypercholesterolemia Benign essential hypertension Glucose intolerance (impaired glucose tolerance) Low ferritin Expected: 07/29/2025 (Approximate), Expires: 01/29/2026 [facility] Work Phone: Comment on above: Expected: 07/29/2025 (Approximate), Expires: 01/29/2026 Start: 07-29-2025 End: 01-29-2026 Hemoglobin A1c/Hemoglobin.total in Blood Hemoglobin A1C Lab Routine Hypercholesterolemia Benign essential hypertension Glucose intolerance (impaired glucose tolerance) Expected: 07/29/2025 (Approximate), Expires: 01/29/2026 [facility] Work Phone: Comment on above: Expected: 07/29/2025 (Approximate), Expires: 01/29/2026 Start: 07-29-2025 End: 01-29-2026 Iron and Iron binding capacity panel - Serum or Plasma Iron and TIBC Lab Routine Hypercholesterolemia Benign essential hypertension Glucose intolerance (impaired glucose tolerance) Low ferritin Expected: 07/29/2025 (Approximate), Expires: 01/29/2026 [facility] Work Phone: Comment on above: Expected: 07/29/2025 (Approximate), Expires: 01/29/2026 Start: 07-29-2025 End: 01-29-2026 Lipid 1996 panel - Serum or Plasma Lipid Panel Lab Routine Hypercholesterolemia Benign essential hypertension Glucose intolerance (impaired glucose tolerance) Expected: 07/29/2025 (Approximate), Expires: 01/29/2026 [facility] Work Phone: Comment on above: Expected: 07/29/2025 (Approximate), Expires: 01/29/2026 Start: 07-29-2025 End: 01-29-2026 Magnesium [Mass/volume] in Serum or Plasma Magnesium Lab Routine Hypercholesterolemia Benign essential hypertension Glucose intolerance (impaired glucose tolerance) Expected: 07/29/2025 (Approximate), Expires: 01/29/2026 [facility] Work Phone: Comment on above: Expected: 07/29/2025 (Approximate), Expires: 01/29/2026 Start: 07-29-2025 End: 07-29-2025 Patient encounter procedure 07/29/2025 2:00 PM EST Office Visit [facility] Internal [facility] [address] [place] [id number] Ashlyn Gates PA-C [address] [place], [place] [id number] [facility] Start: 01-27-2025 COVID-19 Vaccine ( season) COVID-19 Vaccine () [facility] Start: 01-27-2025 Influenza vaccination Influenza Vacc ine (#1) [facility] Start: 12-17-2024 End: 12-17-2024 Patient encounter procedure 12/17/2024 3:00 PM EDT Office Visit [facility] [address] [place] [phone] Ashlyn Gates PA-C [address] [place] [id number] [facility] Start: 12-17-2024 End: 06-19-2025 CBC W Auto Differential panel - Blood CBC and Auto Differential Lab Routine Benign essential hypertension Glucose intolerance (impaired glucose tolerance) Expected: 12/17/2024 (Approximate), Expires: 06/19/2025 [facility] Service Area Work Phone: Comment on above: Expected: 12/17/2024 (Approximate), Expires: 06/19/2025 Start: 12-17-2024 End: 06-19-2025 Cobalamin (Vitamin B12) [Mass/volume] in Serum or Plasma Vitamin B12 Lab Routine Benign essential hypertension Glucose intolerance (impaired glucose tolerance) Expected: 12/17/2024 (Approximate), Expires: 06/19/2025 [facility] Work Phone: Comment on above: Expected: 12/17/2024 (Approximate), Expires: 06/19/2025 Start: 12-17-2024 End: 06-19-2025 Comprehensive metabolic 2000 panel - Serum or Plasma Comprehensive Metabolic Panel Lab Routine Benign essential hypertension Glucose intolerance (impaired glucose tolerance) Expected: 12/17/2024 (Approximate), Expires: 06/19/2025 [facility] Work Phone: Comment on above: Expected: 12/17/2024 (Approximate), Expires: 06/19/2025 Start: 12-17-2024 End: 06-19-2025 Ferritin [Mass/volume] in Serum or Plasma Ferritin Lab Routine Benign essential hypertension Glucose intolerance (impaired glucose tolerance) Low ferritin Expected: 12/17/2024 (Approximate), Expires: 06/19/2025 [facility] Work Phone: Comment on above: Expected: 12/17/2024 (Approximate), Expires: 06/19/2025 Start: 12-17-2024 End: 06-19-2025 Hemoglobin A1c/Hemoglobin.total in Blood Hemoglobin A1C Lab Routine Benign essential hypertension Glucose intolerance (impaired glucose tolerance) Expected: 12/17/2024 (Approximate), Expires: 06/19/2025 [facility] Work Phone: Comment on above: Expected: 12/17/2024 (Approximate), Expires: 06/19/2025 Start: 12-17-2024 End: 06-19-2025 Iron and Iron binding capacity panel - Serum or Plasma Iron and TIBC Lab Routine Benign essential hypertension Glucose intolerance (impaired glucose tolerance) Low ferritin Expected: 12/17/2024 (Approximate), Expires: 06/19/2025 [facility] Work Phone: Comment on above: Expected: 12/17/2024 (Approximate), Expires: 06/19/2025 Start: 12-17-2024 End: 06-19-2025 Lipid 1996 panel - Serum or Plasma Lipid Panel Lab Routine Benign essential hypertension Hypercholesterolemia Glucose intolerance (impaired glucose tolerance) Expected: 12/17/2024 (Approximate), Expires: 06/19/2025 [facility] Work Phone: Comment on above: Expected: 12/17/2024 (Approximate), Expires: 06/19/2025 Start: 12-17-2024 End: 06-19-2025 Magnesium [Mass/volume] in Serum or Plasma Magnesium Lab Routine Benign essential hypertension Glucose intolerance (impaired glucose tolerance) Expected: 12/17/2024 (Approximate), Expires: 06/19/2025 [facility] Work Phone: Comment on above: Expected: 12/17/2024 (Approximate), Expires: 06/19/2025 Start: 12-17-2024 End: 06-19-2025 Thyrotropin [Units/volume] in Serum or Plasma Thyroid Stimulating Hormone Lab Routine Benign essential hypertension Hypercholesterolemia Glucose intolerance (impaired glucose tolerance) Expected: 12/17/2024 (Approximate), Expires: 06/19/2025 [facility] Work Phone: Comment on above: Expected: 12/17/2024 (Approximate), Expires: 06/19/2025 Start: 12-17-2024 End: 06-19-2025 Thyroxine (T4) free [Mass/volume] in Serum or Plasma Thyroxine, Free Lab Routine Benign essential hypertension Hypercholesterolemia Glucose intolerance (impaired glucose tolerance) Expected: 12/17/2024 (Approximate), Expires: 06/19/2025 [facility] Work Phone: Comment on above: Expected: 12/17/2024 (Approximate), Expires: 06/19/2025 Start: 11-13-2024 End: 11-13-2024 Patient encounter procedure 11/13/2024 9:00 AM EDT Office Visit [facility] Internal Medicine [address] [place] [phone] Ashlyn Gates, PAEulaliaC [address] [place] [address] [facility] Internal Medicine Start: 08-07-2024 End: 08-07-2024 Patient encounter procedure 08/07/2024 9:00 AM EDT Office Visit [facility] [address] [place] [phone] Fabi Giraldo, WATER FITNESS INSTRUCTOR-[employer]ISTOR [employer] [address] [place] [phone] [facility] Start: 08-01-2024 [facility] Start: 08-01-2024 [facility] Start: 07-30-2024 End: 07-30-2025 In-Center Sleep Study In-Center Sleep Study Sleep Center Routine Anxiety Snoring Family history of sleep apnea Morbid obesity with BMI of 60.0-69.9, adult (Multi) Expected: 07/30/2024, Expires: 07/30/2025 [facility] Service Area Work Phone: Comment on above: Expected: 07/30/2024 , Expires: 07/30/2025 Start: 07-24-[address] [facility] Start: 07-23-2024 Care planning and problem solving actions [facility] Start: 07-23-2024 Admission procedure [facility] Start: 07-23-2024 [facility] Start: 07-23-2024 Care planning and problem solving actions [facility] Start: 07-22-2024 End: 07-23-2024 [facility] Start: 07-22-2024 Following clinical pathway protocol [facility] Start: 07-22-2024 Assessment of risk o f venous thromboembolism [facility] Start: 07-22-2024 Insertion of cathete r into peripheral vein [facility] Start: 07-22-2024 Measuring intake and output [facility] Start: 07-22-2024 Oxygen therapy [facility] Start: 07-22-2024 Providing care according to standard [facility] Start: 07-22-2024 Provision of activit y privileges [facility] Start: 07-22-2024 Referral to senior biostatistician/group leader [facility] Start: 07-22-2024 Referral to service [facility] Start: 07-22-2024 Admission procedure [facility] Start: 06-19-2024 End: 12-17-2024 CBC W Auto Differential panel - Blood CBC and Auto Differential Lab Routine Benign essential hypertension Glucose intolerance (impaired glucose tolerance) Expected: 06/19/2024 (Approximate), Expires: 12/17/2024 [facility] Service Area Work Phone: Comment on above: Expected: 06/19/2024 (Approximate), Expires: 12/17/2024 Start: 06-19-2024 End: 12-17-2024 Cobalamin (Vitamin B12) [Mass/volume] in Serum or Plasma Vitamin B12 Lab Routine Low vitamin B12 level Benign essential hypertension Glucose intolerance (impaired glucose tolerance) Expected: 06/19/2024 (Approximate), Expires: 12/17/2024 [facility] Work Phone: Comment on above: Expected: 06/19/2024 (Approximate), Expires: 12/17/2024 Start: 06-19-2024 End: 12-17-2024 Comprehensive metabolic 2000 panel - Serum or Plasma Comprehensive Metabolic Panel Lab Routine Benign essential hypertension Glucose intolerance (impaired glucose tolerance) Expected: 06/19/2024 (Approximate), Expires: 12/17/2024 [facility] Work Phone: Comment on above: Expected: 06/19/2024 (Approximate), Expires: 12/17/2024 Start: 06-19-2024 End: 12-17-2024 Ferritin [Mass/volume] in Serum or Plasma Ferritin Lab Routine Benign essential hypertension Glucose intolerance (impaired glucose tolerance) Low ferritin Expected: 06/19/2024 (Approximate), Expires: 12/17/2024 [facility] Work Phone: Comment on above: Expected: 06/19/2024 (Approximate), Expires: 12/17/2024 Start: 06-19-2024 End: 12-17-2024 Hemoglobin A1c/Hemoglobin.total in Blood Hemoglobin A1C Lab Routine Benign essential hypertension Glucose intolerance (impaired glucose tolerance) Expected: 06/19/2024 (Approximate), Expires: 12/17/2024 [facility] Work Phone: Comment on above: Expected: 06/19/2024 (Approximate), Expires: 12/17/2024 Start: 06-19-2024 End: 12-17-2024 Iron and Iron binding capacity panel - Serum or Plasma Iron and TIBC Lab Routine Benign essential hypertension Glucose intolerance (impaired glucose tolerance) Low ferritin Expected: 06/19/2024 (Approximate), Expires: 12/17/2024 [facility] Work Phone: Comment on above: Expected: 06/19/2024 (Approximate), Expires: 12/17/2024 Start: 06-19-2024 End: 12-17-2024 Lipid 1996 panel - Serum or Plasma Lipid Panel Lab Routine Benign essential hypertension Hypercholesterolemia Glucose intolerance (impaired glucose tolerance) Expected: 06/19/2024 (Approximate), Expires: 12/17/2024 [facility] Work Phone: Comment on above: Expected: 06/19/2024 (Approximate), Expires: 12/17/2024 Start: 06-19-2024 End: 12-17-2024 Magnesium [Mass/volume] in Serum or Plasma Magnesium Lab Routine Benign essential hypertension Glucose intolerance (impaired glucose tolerance) Expected: 06/19/2024 (Approximate), Expires: 12/17/2024 [facility] Work Phone: Comment on above: Expected: 06/19/2024 (Approximate), Expires: 12/17/2024 Start: 06-19-2024 End: 06-19-2024 Patient encounter procedure 06/19/2024 2:00 PM EST Office Visit [facility] Internal Medicine [address] [place] [phone] Ashlyn Gates PAEulaliaC [address] [place] [address] [facility] Medicine Start: 06-04-2024 End: 06-04-2024 Patient encounter procedure 06/04/2024 9:00 AM EST Office Visit [facility] [address] [place] [address] Fabi Giraldo, WATER FITNESS INSTRUCTOR-RESISTOR WINDER [address] [place] [address] [facility] Start: 05-08-2024 End: 05-08-2024 Patient encounter procedure 05/08/2024 8:20 AM EST Office Visit [address] [place] [address] Fabi Giraldo APRN-RESISTOR WINDER [address] [facility] [place] [address] [facility] Start: 03-07-2024 End: 03-07-2024 Patient encounter procedure 03/07/2024 1:40 PM EDT Office Visit [address] [place] [address] Fabi Giraldo APRN-RESISTOR WINDER [address] [place] [address] [facility] Start: 01-28-2024 COVID-19 Vaccine ( season) COVID-19 Vaccine ( season) [facility] Start: 01-28-2024 COVID-19 VACCINE ( season) COVID-19 VACCINE ( season) [facility] Start: 01-28-2024 COVID-19 VACCINE ( season) COVID-19 VACCINE ( season) [facility] Start: 01-28-2024 Influenza vaccination INFLUENZA VACC INE (#1) [facility] Start: 12-08-2023 End: 12-08-2023 Patient encounter procedure 12/08/2023 2:20 PM EDT Office Visit [address] [place] [address] Fabi Giraldo APRN-RESISTOR WINDER [address] [place] [address] [facility] Start: 11-22-2023 End: 05-23-2024 CBC W Auto Differential panel - Blood CBC and Auto Differential Lab Routine Hypercholesterolemia Glucose intolerance (impaired glucose tolerance) Expected: 11/22/2023 (Approximate), Expires: 05/23/2024 [facility] Service Area Work Phone: Comment on above: Expected: 11/22/2023 (Approximate), Expires: 05/23/2024 Start: 11-22-2023 End: 05-23-2024 Cobalamin (Vitamin B12) [Mass/volume] in Serum or Plasma Vitamin B12 Lab Routine Low vitamin B12 level Expected: 11/22/2023 (Approximate), Expires: 05/23/2024 [facility] Work Phone: Comment on above: Expected: 11/22/2023 (Approximate), Expires: 05/23/2024 Start: 11-22-2023 End: 05-23-2024 Comprehensive metabolic 2000 panel - Serum or Plasma Comprehensive Metabolic Panel Lab Routine Hypercholesterolemia Glucose intolerance (impaired glucose tolerance) Expected: 11/22/2023 (Approximate), Expires: 05/23/2024 [facility] Work Phone: Comment on above: Expected: 11/22/2023 (Approximate), Expires: 05/23/2024 Start: 11-22-2023 End: 05-23-2024 Ferritin [Mass/volume] in Serum or Plasma Ferritin Lab Routine Low ferritin Expected: 11/22/2023 (Approximate), Expires: 05/23/2024 [facility] Work Phone: Comment on above: Expected: 11/22/2023 (Approximate), Expires: 05/23/2024 Start: 11-22-2023 End: 05-23-2024 Hemoglobin A1c/Hemoglobin.total in Blood Hemoglobin A1C Lab Routine Glucose intolerance (impaired glucose tolerance) Expected: 11/22/2023 (Approximate), Expires: 05/23/2024 [facility] Work Phone: Comment on above: Expected: 11/22/2023 (Approximate), Expires: 05/23/2024 Start: 11-22-2023 End: 05-23-2024 Iron and Iron binding capacity panel - Serum or Plasma Iron and TIBC Lab Routine Low ferritin Expected: 11/22/2023 (Approximate), Expires: 05/23/2024 [facility] Work Phone: Comment on above: Expected: 11/22/2023 (Approximate), Expires: 05/23/2024 Start: 11-22-2023 End: 05-23-2024 Lipid 1996 panel - Serum or Plasma Lipid Panel Lab Routine Hypercholesterolemia Expected: 11/22/2023 (Approximate), Expires: 05/23/2024 [facility] Work Phone: Comment on above: Expected: 11/22/2023 (Approximate), Expires: 05/23/2024 Start: 11-22-2023 End: 05-23-2024 Magnesium [Mass/volume] in Serum or Plasma Magnesium Lab Routine Hypercholesterolemia Expected: 11/22/2023 (Approximate), Expires: 05/23/2024 [facility] Work Phone: Comment on above: Expected: 11/22/2023 (Approximate), Expires: 05/23/2024 Start: 11-22-2023 End: 05-23-2024 Thyrotropin [Units/volume] in Serum or Plasma Thyroid Stimulating Hormone Lab Routine Hypercholesterolemia Expected: 11/22/2023 (Approximate), Expires: 05/23/2024 [facility] Work Phone: Comment on above: Expected: 11/22/2023 (Approximate), Expires: 05/23/2024 Start: 11-22-2023 End: 05-23-2024 Thyroxine (T4) free [Mass/volume] in Serum or Plasma Thyroxine, Free Lab Routine Hypercholesterolemia Expected: 11/22/2023 (Approximate), Expires: 05/23/2024 [facility] Work Phone: Comment on above: Expected: 11/22/2023 (Approximate), Expires: 05/23/2024 Start: 11-22-2023 End: 11-22-2023 Patient encounter procedure 11/22/2023 10:40 AM EDT Office Visit [facility] Internal [facility] [address] [place] [address] Ashlyn Gates PA-C [address] [place] [address] [facility] Start: 11-17-2023 Screening for malignant neoplasm of cervix [facility] Start: 11-01-2023 Diabetes mellitus screening Diabetes Screening [facility] Start: 08-24-2023 End: 08-24-2023 Patient encounter procedure 08/24/2023 8:20 AM EDT Office Visit [address] [phone] Fabi Giraldo, WATER FITNESS INSTRUCTOR-RESISTOR WINDER [address] [place] [address] [facility] Start: 07-24-2023 End: 07-24-2023 Patient encounter procedure 07/24/2023 9:20 AM EST Office Visit [facility] [address] [place] [address] Ashlyn Gates, MARLON [address] [place] [address] [facility] Start: 05-12-2023 End: 05-12-2023 Patient encounter procedure 05/12/2023 8:20 AM EST Office Visit [address] [phone] Fabi Giraldo, WATER FITNESS INSTRUCTOR-RESISTOR WINDER [address] [place] [phone] [facility] Start: 05-03-2023 End: 11-02-2023 CBC W Auto Differential panel - Blood CBC and Auto Differential Lab Routine Glucose intolerance (impaired glucose tolerance) Hypercholesterolemia Expected: 05/03/2023 (Approximate), Expires: 11/02/2023 [facility] Service Area Work Phone: Comment on above: Expected: 05/03/2023 (Approximate), Expires: 11/02/2023 Start: 05-03-2023 End: 11-02-2023 Cobalamin (Vitamin B12) [Mass/volume] in Serum or Plasma Vitamin B12 Lab Routine Glucose intolerance (impaired glucose tolerance) Low vitamin B12 level Hypercholesterolemia Expected: 05/03/2023 (Approximate), Expires: 11/02/2023 [facility] Work Phone: Comment on above: Expected: 05/03/2023 (Approximate), Expires: 11/02/2023 Start: 05-03-2023 End: 11-02-2023 Comprehensive metabolic 2000 panel - Serum or Plasma Comprehensive Metabolic Panel Lab Routine Glucose intolerance (impaired glucose tolerance) Hypercholesterolemia Expected: 05/03/2023 (Approximate), Expires: 11/02/2023 [facility] Work Phone: Comment on above: Expected: 05/03/2023 (Approximate), Expires: 11/02/2023 Start: 05-03-2023 End: 11-02-2023 Ferritin [Mass/volume] in Serum or Plasma Ferritin Lab Routine Glucose intolerance (impaired glucose tolerance) Low ferritin Hypercholesterolemia Expected: 05/03/2023 (Approximate), Expires: 11/02/2023 [facility] Work Phone: Comment on above: Expected: 05/03/2023 (Approximate), Expires: 11/02/2023 Start: 05-03-2023 End: 11-02-2023 Hemoglobin A1c/Hemoglobin.total in Blood Hemoglobin A1C Lab Routine Glucose intolerance (impaired glucose tolerance) Hypercholesterolemia Expected: 05/03/2023 (Approximate), Expires: 11/02/2023 [facility] Work Phone: Comment on above: Expected: 05/03/2023 (Approximate), Expires: 11/02/2023 Start: 05-03-2023 End: 11-02-2023 Iron and Iron binding capacity panel - Serum or Plasma Iron and TIBC Lab Routine Glucose intolerance (impaired glucose tolerance) Low ferritin Hypercholesterolemia Expected: 05/03/2023 (Approximate), Expires: 11/02/2023 [facility] Work Phone: Comment on above: Expected: 05/03/2023 (Approximate), Expires: 11/02/2023 Start: 05-03-2023 End: 11-02-2023 Lipid 1996 panel - Serum or Plasma Lipid Panel Lab Routine Glucose intolerance (impaired glucose tolerance) Hypercholesterolemia Expected: 05/03/2023 (Approximate), Expires: 11/02/2023 [facility] Work Phone: Comment on above: Expected: 05/03/2023 (Approximate), Expires: 11/02/2023 Start: 05-03-2023 End: 11-02-2023 Magnesium [Mass/volume] in Serum or Plasma Magnesium Lab Routine Glucose intolerance (impaired glucose tolerance) Low ferritin Hypercholesterolemia Expected: 05/03/2023 (Approximate), Expires: 11/02/2023 [facility] Work Phone: Comment on above: Expected: 05/03/2023 (Approximate), Expires: 11/02/2023 Start: 05-03-2023 End: 05-03-2023 Patient encounter procedure 05/03/2023 2:00 PM EST Office Visit [facility] [address] [place] [phone] Ashlyn Gates, PAElualiaC [address] [place] [address] [facility] Start: 02-15-2023 End: 02-15-2023 Patient encounter procedure 02/15/2023 8:00 AM EDT Office Visit [facility] [address] [place] [phone] Fabi Giraldo APRN-RESISTOR WINDER [address] [place] [address] [facility] Start: 09-01-2023 COVID-19 Vaccine ( season) COVID-19 Vaccine () [facility] Start: 01-27-2023 COVID-19 VACCINE ( season) COVID-19 VACCINE () [facility] Start: 01-27-2023 Influenza vaccination INFLUENZA VACC INE (#1) [facility] Start: 11-24-2022 End: 11-24-2022 Patient encounter procedure 11/24/2022 Office Visit Family Medicine Fabi Giraldo, WATER FITNESS INSTRUCTOR-RESISTOR WINDER [address] [facility] [place] [phone] [facility] Start: 11-01-2022 FUV, Provider: Ashlyn Gates, Status: Pen, Time: 2:00 PM FUV, Provider: Ashlyn Gates, Status: Pen, Time: 2:[address] [facility] Internal Medicine Work Phone: Start: 10-26-2022 End: 10-26-2022 Patient encounter procedure 10/26/2022 Office Visit Family Medicine Fabi Giraldo, WATER FITNESS INSTRUCTOR-RESISTOR WINDER [address] [facility] [place] [phone] [facility] Start: 09-03-2022 [facility] Start: 08-23-2022 End: 08-23-2022 Patient encounter procedure 08/23/2022 Office Visit Family Medicine Fabi Giraldo, WATER FITNESS INSTRUCTOR-RESISTOR WINDER [address] [place] [address] [facility] Start: 08-12-2022 COVID-19 Vaccine (4 - Booster for Moderna series) COVID-19 Vaccine (4 - Booster for Moderna series) [facility] Start: 08-12-2022 COVID-19 Vaccine (4 - Moderna series) COVID-19 Vaccine (4 - Moderna series) [facility] Start: 07-26-2022 End: 07-26-2022 Patient encounter procedure 07/26/2022 Office Visit Family Medicine Fabi Giraldo APRN-RESISTOR WINDER [address] [place] [phone] [facility] Start: 07-18-2022 FUV, Provider: Christopher Keenan, Status: Pen, Time: 3:30 PM FUV, Provider: Christopher Keenan, Status: Pen, Time: 3:30 PM [facility] Work Phone: Start: 07-18-2022 Patient encounter procedure [facility] Start: 06-21-2022 End: 06-21-2022 Patient encounter procedure 06/21/2022 Office Visit Family Medicine Fabi Giraldo APRN-RESISTOR WINDER [address] [place] [phone] [facility] Start: 05-03-2022 FUV, Provider: Ashlyn Gates, Status: Pen, Time: 2:40 PM FUV, Provider: Ashlyn Gates, Status: Pen, Time: 2:40 PM -[facility] Internal Medicine Work Phone: Start: 05-03-2022 Patient encounter procedure [facility] Start: 04-26-2022 End: 04-26-2022 Patient encounter procedure 04/26/2022 Office Visit Family Medicine Fabi Giraldo APRN-RESISTOR WINDER [address] [place] [address] [facility] Start: 03-24-2022 End: 03-24-2022 Patient encounter procedure 03/24/2022 Office Visit Family Medicine Fabi Giraldo APRN-RESISTOR WINDER [address] [place] [address] [facility] Start: 02-24-2022 End: 02-24-2022 Patient encounter procedure 02/24/2022 Office Visit Family Medicine Fabi Giraldo APRN-CNP [address] [facility] [place] [address] [facility] Start: 01-27-2022 Influenza vaccination INFLUENZA VACC INE (#1) [facility] Start: 01-03-2022 FUV, Provider: Christopher Keenan, Status: Pen, Time: 1:15 PM FUV, Provider: Christopher Keenan, Status: Pen, Time: 1:15 PM [facility] Work Phone: Start: 12-23-2021 End: 12-23-2021 Patient encounter procedure 12/23/2021 Office Visit Family Medicine Fabi Giraldo APRN-CNP [address] [facility] [place] [address] [facility] Start: 11-25-2021 End: 11-25-2021 Patient encounter procedure 11/25/2021 Office Visit Family Medicine Fabi Giraldo APRN-CNP [address] [facility] [place] [address] [facility] Start: 10-27-2021 End: 10-27-2021 Patient encounter procedure 10/27/2021 Office Visit Family Medicine Fabi Giraldo APRN-RESISTOR WINDER [address] [facility] [place] [address] [facility] Start: 09-29-2021 End: 09-29-2021 Patient encounter procedure 09/29/2021 Office Visit Family Medicine Fabi Giraldo APRN-CNP [address] [facility] [place] [address] [facility] Start: 09-23-2021 FUV, Provider: Ashlyn Gates, Status: Pen, Time: 2:40 PM FUV, Provider: Ashlyn Gates, Status: Pen, Time: 2:[address] [facility] Internal Medicine Work Phone: Start: 09-02-2021 End: 09-02-2021 Patient encounter procedure 09/02/2021 Office Visit [facility] Medicine Fabi Giraldo APRN-RESISTOR WINDER [address] [place] [address] [facility] Start: 08-03-2021 End: 08-03-2021 Patient encounter procedure 08/03/2021 Office Visit [facility] Fabi Giraldo APRN-RESISTOR WINDER [address] [place] [address] [facility] Start: 08-03-2021 Tetanus vaccination TETANUS [facility] Start: 07-05-2021 FUV, Provider: Christopher Keenan, Status: Pen, Time: 3:00 PM FUV, Provider: Christopher Keenan, Status: Pen, Time: 3:00 PM [facility] Work Phone: Start: 06-01-2021 End: 06-01-2021 Patient encounter procedure 06/01/2021 Office Visit [facility] Medicine Fabi Giraldo APRN-RESISTOR WINDER [address] [place] [address] [facility] Start: 05-18-2021 VIRFUVHOME, Provider : Ashlyn Gates, Status: Pen, Time: 12:40 PM VIRFUVHOME, Provider: Ashlyn Gates, Status: Pen, Time: 12:[address] [facility] Internal Medicine Work Phone: Start: 03-25-2021 EPV, Provider: Nirali Portillo, Status: Pen, Time: 3:20 PM EPV, Provider: Nirali Portillo, Status: Pen, Time: 3:20 PM [facility] Work Phone: Start: 02-17-2021 COVID-19 VACCINE (3 - Booster for Moderna series) COVID-19 VACCINE (3 - Booster for Moderna series) [facility] Start: 01-27-2021 Influenza vaccination A [facility] Start: 01-26-2021 End: 01-26-2021 Patient encounter procedure 01/26/2021 Office Visit Family Medicine Fabi Giraldo APRN-RESISTOR WINDER [address] [place] [phone] [facility] Start: 12-29-2020 FUV, Provider: Christopher Keenan, Status: Pen, Time: 3:00 PM FUV, Provider: Christopher Keenan, Status: Pen, Time: 3:00 PM -[facility] Internal Medicine Work Phone: Start: 12-22-2020 End: 12-22-2020 Patient encounter procedure 12/22/2020 Office Visit Family Medicine Fabi Giraldo APRN-RESISTOR WINDER [address] [place] [address] [phone] [facility] Start: 11-12-2020 COVID-19 VACCINE (3 - Booster for Moderna series) COVID-19 VACCINE (3 - Booster for Moderna series) [facility] Start: 11-03-2020 End: 11-03-2020 Patient encounter procedure 11/03/2020 Office Visit Family Medicine Fabi Giraldo APRN-RESISTOR WINDER [address] [place] [address] [phone] [facility] Start: 10-02-2020 End: 10-02-2020 Office Visit 10/02/2020 Office Visit Family Medicine Fabi Giraldo APRN-RESISTOR WINDER [address] [place] [address] [phone] [facility] Start: 09-18-2020 COVID-19 VACCINE (2 - Moderna 2-dose series) COVID-19 VACCINE (2 - Moderna 2-dose series) [facility] Start: 09-17-2020 End: 09-17-2020 Immunization 09/17/2020 Immunization [facility] Start: 09-04-2020 End: 09-04-2020 Office Visit 09/04/2020 Office Visit Family Medicine Fabi Giraldo, WATER FITNESS INSTRUCTOR-RESISTOR WINDER [address] [place] [address] [facility] Start: 03-26-2020 Blood count complete auto&auto difrntl wbc Complete Blood Count + Differential [facility] Work Phone: Start: 03-26-2020 Cobalamin (Vitamin B12) [Mass/Vol] Vitamin B12, Serum [facility] Work Phone: Start: 03-26-2020 Comprehensive metabolic 2000 panel Comprehensive Metabolic Panel [facility] Work Phone: Start: 03-26-2020 HbA1c (Bld) [Mass fraction] Hemoglobin A1C [facility] Work Phone: Start: 03-26-2020 Lipid panel Lipid Panel [facility] Internal Medicine Work Phone: Start: 01-28-2020 Influenza vaccination INFLUENZA VACC INE (#1) [facility] Start: 09-11-2019 Assay of free thyroxine T4 - Free Thyroxine, Serum [facility] Work Phone: Start: 09-11-2019 Cobalamin (Vitamin B12) [Mass/Vol] Vitamin B12, Serum [facility] Work Phone: Start: 09-11-2019 Comprehensive metabolic 2000 panel Comprehensive Metabolic Panel [facility] Work Phone: Start: 09-11-2019 TSH Qn TSH - Thyroid Stimulating Hormone, Serum [facility] Work Phone: Start: 2018 DTaP/Tdap/Td Vaccine s (2 - Tdap) DTaP/Tdap/Td Vaccines (2 - Tdap) [facility] Start: 2017 Screening for malignant neoplasm of cervix [facility] Start: 2015 Third diphtheria, tetanus and acellular pertussis (DTaP) vaccination TDAP (ADULT) [facility] Start: 2014 Hepatitis C screening Hepatitis C Sc reening [facility] Start: 2014 Tetanus vaccination TETANUS [facility] Start: 02-04-2013 HPV Vaccines (3 - 3-dose series) HPV Vaccines (3 - 3-dose series) [facility] Start: 02-04-2013 Vaccination for marybeth n papillomavirus HPV VACCINE ADOL (3 - 3-dose series) [facility] Start: 12-27-2012 HPV VACCINE (3 - 3-dose series) HPV VACCINE (3 - 3-dose series) [facility] Start: 12-27-2012 HPV Vaccines (3 - 3-dose series) HPV Vaccines (3 - 3-dose series) [facility] Start: 2012 Screening for Chlamydia trachomatis CHLAMYDIA SCREEN [facility] Start: 2011 HIV screening HIV SCREENING DISCUSSI ON [facility] Start: 2009 HIV screening HIV SCREENING DISCUSSI ON [facility] Start: 2009 Varicella vaccination Varicell a Vaccines (1 of 2 - 13+ 2-dose series) [facility] Start: 2007 Vaccination for marybeth n papillomavirus HPV VACCINE ADOL (1 - 2-dose series) [facility] Start: 1997 MMR Vaccines (1 of 1 - Standard series) MMR Vaccines (1 of 1 - Standard series) [facility] Start: 1996 GONORRHEA SCREEN GONORRHEA SCREEN [facility] Start: 1996 Hepatitis C antibody , confirmatory test HEPATITIS C VIRUS SCREENING [facility] Start: 1996 Hepatitis C screening HEPATITIS C ANNIKA SCREENING [facility] Start: 1996 HIV screening HIV Screening [facility] Start: 1996 Screening for Chlamydia trachomatis GONORRHEA SCREEN [facility] Start: 1996 Yearly Adult Physical Yearly Adult P hysical [facility] Helicobacter pylori Ag [Presence] in Stool by Immunoassay [facility] Ova and parasites identified in Unspecified specimen by Light microscopy [facility] Patient Education [facility] Work Phone: Patient referral [facility] Work Phone: Protein measurement [facility] Work Phone: [facility] NEGATED: Highlighted row has been ruled out! Planned Goals not documented [facility] Work Phone: Immunizations Immunization Date Immunization Notes Care Provider Martin mullen 04-22-2024 influenza, seasonal, injectable, preservative free Ashlyn Gatse PA-C Work Phone: [facility] Work Phone: 04-22-2024 influenza virus vaccine, unspecified formulation Ashlyn Gates PA-C Work Phone: [facility] Work Phone: 02-23-2023 influenza, injectabl e, quadrivalent, preservative free [facility] 02-23-2023 influenza virus vaccine, unspecified formulation Fabi Giraldo WATER FITNESS INSTRUCTOR-RESISTOR WINDER Work Phone: [facility] 06-17-2022 Covid Kristophera Milese nt Booster PA Ashlyn LOPEZ Work Phone: [facility] 04-14-2022 influenza, injectabl e, quadrivalent, preservative free [facility] 04-14-2022 influenza, seasonal, injectable Ashlyn Gates Work Phone: [facility] 04-14-2022 influenza virus vaccine, unspecified formulation Fabi Giraldo WATER FITNESS INSTRUCTOR-RESISTOR WINDER Work Phone: [facility] 08-12-2021 hepatitis B vaccine, adult dosage Ashlyn Gates Work Phone: [facility] 08-10-2021 tetanus toxoid, redu lakshmi diphtheria toxoid, and acellular pertussis vaccine, adsorbed Ashlyn Gates Work Phone: [facility] 04-10-2021 Moderna COVID-19 Vaccine 100 MCG/0.5ML Intramuscular Suspension Ashlyn Gates Work Phone: [facility] Work Phone: 03-25-2021 influenza, injectabl e, quadrivalent, preservative free; Translations: [Flulaval Quadrivalent 0.5 ML Intramuscular Suspension Prefilled Syringe] Ashlyn Gates Work Phone: [facility] Medicine Work Phone: Comment on above: Series: 03-25-2021 influenza virus vaccine, unspecified formulation Fabi DENGRESISTOR WINDER Work Phone: [facility] 09-17-2020 SARS-COV-2 (COVID-19 ), Mrna, Lnp-s, Pf, 100 Mcg/ 0.5 Ml Dose [facility] Work Phone: [facility] Comment on above: Series: 08-21-2020 SARS-COV-2 (COVID-19 ), Mrna, Lnp-s, Pf, 100 Mcg/ 0.5 Ml Dose [facility] Irizarryhart [facility] Comment on above: Series: 02-24-2020 influenza, seasonal, injectable Ashlyn Gates Work Phone: [facility] Work Phone: Comment on above: Series: 02-24-2020 influenza, seasonal, injectable Christopher Zumbar [facility] Work Phone: 10-04-2012 hepatitis A vaccine, pediatric/adolescent dosage, 2 dose schedule Ashlyn Gates Work Phone: [facility] Work Phone: 10-04-2012 human papilloma viru s vaccine, quadrivalent Ashlyn Gates Work Phone: [facility] Work Phone: 10-04-2012 HPV, unspecified formulation Ashlyn Gates PA-C Work Phone: [facility] Work Phone: 08-04-2011 hepatitis A vaccine, pediatric/adolescent dosage, 2 dose schedule Ashlyn Gates Work Phone: [facility] Work Phone: 08-04-2011 human papilloma viru s vaccine, quadrivalent Ashlyn Gates Work Phone: [facility] Work Phone: 08-04-2011 meningococcal polysaccharide (groups A, C, Y and W-135) diphtheria toxoid conjugate vaccine (MCV4P) Ashlyn Gates Work Phone: [facility] Medicine Work Phone: 08-04-2011 tetanus toxoid, redu lakshmi diphtheria toxoid, and acellular pertussis vaccine, adsorbed Ashlyn Gates Work Phone: [facility] Medicine Work Phone: 08-04-2011 varicella virus vaccine Adrianna justin Gates Work Phone: [facility] Work Phone: 10-27-2000 hepatitis B vaccine, pediatric or pediatric/adolescent dosage Ashlyn Gates Work Phone: [facility] Work Phone: 10-27-2000 poliovirus vaccine, inactivated Ashlyn Gates Work Phone: [facility] Work Phone: 10-13-2000 diphtheria, tetanus toxoids and acellular pertussis vaccine, unspecified formulation Ashlyn Gates Work Phone: [facility] Work Phone: 10-13-2000 measles, mumps and rubella virus vaccine Ashlyn Gates Work Phone: [facility] Work Phone: 08-08-2000 diphtheria, tetanus toxoids and acellular pertussis vaccine, unspecified formulation Ashlyn Gates Work Phone: [facility] Work Phone: 08-08-2000 measles, mumps and rubella virus vaccine Ashlyn Walkerall Work Phone: [facility] Work Phone: 08-08-2000 varicella virus vaccine Adrianna Titusenhall Work Phone: [facility] Work Phone: 02-26-1997 diphtheria, tetanus toxoids and acellular pertussis vaccine, unspecified formulation Ashlyn B Yajaira Work Phone: [facility] Work Phone: 02-26-1997 haemophilus influenz ae type b vaccine, conjugate unspecified formulation Ashlyn Gates Work Phone: [facility] Work Phone: 02-26-1997 trivalent poliovirus vaccine, live, oral Ashlyn Gates Work Phone: [facility] Work Phone: 1996 diphtheria, tetanus toxoids and acellular pertussis vaccine, unspecified formulation Ashlyn Gates Work Phone: [facility] Work Phone: 1996 haemophilus influenz ae type b vaccine, conjugate unspecified formulation Ashlyn B Yajaira Work Phone: [facility] Work Phone: 1996 trivalent poliovirus vaccine, live, oral Ashlyn B Yajaira Work Phone: [facility] Work Phone: 1996 DTP-Haemophilus influenzae type b conjugate vaccine Ashlyn B Yajaira Work Phone: [facility] Work Phone: 1996 hepatitis B vaccine, pediatric or pediatric/adolescent dosage Ashlyn Gates Work Phone: [facility] Work Phone: 1996 trivalent poliovirus vaccine, live, oral Ashlyn Gates Work Phone: [facility] Work Phone: 1996 hepatitis B vaccine, pediatric or pediatric/adolescent dosage Ashlyn Gates Work Phone: [facility] Work Phone: Payers Date Payer Category Payer Self-pay [id number] 2022 Managed Care (Private) 1.2.8 [id number] 2022 Managed Care (unspecified) [employer] [place] [id number] .[id number] 2022 Unknown [id number] 2020 Private Health Insurance xxx [id number] [id number] .7.3.938601.315 2020 Private Health Insurance 1.2 .840.357996.1.13.172.2 .7.3.025660.315 2017 Unknown 1996 Unknown [id number] 2.16.840.1.721787.3.579.2 .717 1996 Unknown [id number] 2.16.840.1.228135.3.579.2 .1996 Unknown [id number] 2.16.840.1.199645.3.579.2 .1996 Unknown [id number] 2.16.840.1.209574.3.579.2 .1996 Unknown [id number] 2.16.840.1.461030.3.579.2 .1996 Unknown [id number] 2.16.840.1.457468.3.579.2 .1996 Unknown [id number] 2.16.840.1.079500.3.579.2 .1996 Unknown [id number] 2.16.840.1.553480.3.579.2 .1996 Unknown [id number] 2.16.840.1.840961.3.579.2 .1996 Unknown [id number] 2.16.840.1.518718.3.579.2 .1996 Unknown [id number] 2.16.840.1.969119.3.579.2 .1996 Unknown [id number] 2.16.840.1.213285.3.579.2 .356 1996 Unknown [id number] 2.16.840.1.090184.3.579.2 .356 1996 Unknown [id number] 2.16.840.1.828593.3.579.2 .1068 1996 Unknown [id number] 2.16.840.1.235365.3.579.2 .1069 1996 Unknown [id number] 2.16.840.1.436482.3.579.2 .1069 1996 Unknown [id number] 2.16.840.1.869749.3.579.2 .1069 1996 Unknown [id number] 2.16.840.1.486270.3.579.2 .1069 1996 Unknown [id number] 2.16.840.1.209151.3.579.2 .902 1996 Unknown [id number] 2.16.840.1.512297.3.579.2 .983 1996 Unknown [id number] 2.16.840.1.260861.3.579.2 .983 1996 Unknown [id number] 2.16.840.1.084838.3.579.2 .983 1996 Unknown [id number] 2.16.840.1.602556.3.579.2 .983 1996 Unknown [id number] 2.16840.1.108728.3.579.2 .983 1996 Unknown [id number] 2.16.840.1.384141.3.579.2 .983 1996 Unknown [id number] 2.16.840.1.141949.3.579.2 .1243 1996 Unknown [id number] 2.16.840.1.258923.3.579.2 .1244 1996 Unknown [id number] 2.16.840.1.414245.3.579.2 .1244 1996 Unknown [id number] 2.16.840.1.988833.3.579.2 .1244 1996 Unknown [id number] 2.16.840.1.345390.3.579.2 .1244 1996 Unknown [id number] 2.16.840.1.975751.3.579.2 .1244 1996 Unknown [id number] 2.16.840.1.812342.3.579.2 .1244 Private Health Insurance [id number] Unknown [id number] 2.16.840.1.516974.3.579.2 .462 Unknown [id number] 2.16.840.1.770298.3.579.2 .462 Unknown [id number] 2.16.840.1.136122.3.579.2 .462 Unknown [id number] 2.16.840.1.390833.3.579.2 .462 Unknown [id number] 2.16.840.1.403282.3.579.2 .462 Unknown [id number] 2.16.840.1.495101.3.579.2 .462 Unknown [id number] 2.16.840.1.073370.3.579.2 .462 Unknown [id number] 2.16.840.1.547522.3.579.2 .462 Unknown [id number] 2.16.840.1.722019.3.579.2 .462 Unknown [id number] 2.16.840.1.772036.3.579.2 .462 Unknown [id number] 2.16.840.1.066829.3.579.2 .462 Unknown [id number] 2.16.840.1.499092.3.579.2 .462 Unknown [id number] 2.16.840.1.062483.3.579.2 .462 Unknown [id number] 2.16.840.1.372849.3.579.2 .462 Unknown [id number] 2.16.840.1.725184.3.579.2 .462 Unknown [id number] 2.16.840.1.635797.3.579.2 .462 Unknown [id number] 2.16.840.1.656592.3.579.2 .462 Social History Date Type Detail Facility Start: 08-06-2020 End: 08-07-2024 Tobacco smoking status NHIS Never smoker [facility] Start: 08-06-2020 End: 10-27-2022 Tobacco use and exposure Never used [facility] Start: 08-06-2020 End: 08-07-2024 Alcohol intake Ex-drinker (finding) [facility] Start: 08-06-2020 History SDOH Alcohol Frequency 1 [facility] Start: 1995 Sex Assigned At Not on file A [facility] Start: 07-24-2021 End: 10-30-2024 Exposure to SARS-CoV-2 (event) Not sure [facility] Start: 11-01-2022 End: 01-29-2025 Feels safe at home Feels safe at home [facility] Work Phone: Start: 09-03-2022 End: 09-03-2022 Tobacco smoking consumption unknown [facility] Start: 1995 Sex Assigned At Female [facility] Start: 11-01-2022 End: 01-29-2025 Alcohol intake Lifetime non-drinker (finding) [facility] Work Phone: Start: 11-01-2022 End: 01-29-2025 Tobacco use panel [facility] Work Phone: Start: 06-30-2022 Gender identity Identifies as female gender (finding) [facility] Work Phone: Start: 11-01-2022 Sexual orientation Bisexual (finding ) [facility] Work Phone: Start: 11-01-2022 Sexual orientation Heterosexual (fin ding) [facility] Work Phone: How often to you hav e a drink containing alcohol? Never [facility] Start: 04-23-2022 Average Number of Drinks Not on file [facility] Start: 06-18-2020 End: 08-16-2024 Sex Female (finding) [facility] NEGATED: Highlighted row - - [facility] Work Phone: NEGATED: Highlighted row [facility] NEGATED: Highlighted row Not [facility] Goals Date Patient Goal Desired Activity /State Functional Status Date Assessment Result Facility 01-29-2025 Patient Health Questionnaire 2 item (PHQ-2) [Reported] [facility] Work Phone: 10-30-2024 Patient Health Questionnaire 2 item (PHQ-2) [Reported] [facility] Work Phone: 09-11-2024 Patient Health Questionnaire 2 item (PHQ-2) [Reported] [facility] Work Phone: 07-24-2024 Functional status Ambulates [facility] Work Phone: NEGATED: Highlighted row Functional performance Functional status health issues are not documented Disease [facility] Work Phone: Mental Status Date Assessment Result Facility 08-01-2024 Cognitive function Level Of Cons ciousness Awake;Alert;Appropriate ;Follows Commands [facility] Work Phone: 07-24-2024 Cognitive function Voice/Name [facility] Work Phone: NEGATED: Highlighted row Cognitive function [Interpretation] Cognitive status health issues are not documented Disease [facility] Work Phone: Clinical Notes 10-02-2020 to 01-29-2025 Ashlyn Gates PA-C - 01/29/2025 3:00 PM Joan Gates PA-C - 10/30/2024 1:20 PM Joan Gates PA-C - 09/11/2024 9:40 AM EDTSeneida Guzman - 08/07/2024 9:00 AM EDT Note Date & Type Note Facility 01-29-2025 History of Present illness Narrative Subjective Patient ID: Yemi Morejon is a 29 y.o. female who presents for Follow-up (6 MONTH F/U WITH LABS ([facility]). ) HPI LABS Med check HTN- on meds B12 - 3 /week Iron - - [...] with specialists and has been on/off adipex BEST - following with dr rascon in [place] and set for additional testing for possible BIPAP Preventative testing PAP - [facility] - mammo - suggest age 40 (mom with breast cancer age 52) colonoscopy - suggest age 45-50 DEXA - [...] pain, frequency and urgency. Musculoskeletal: Positive for arthralgias and back pain. Negative for gait problem and neck pain. Skin: Negative for rash and wound. Neurological: Negative for dizziness, tremors, syncope, numbness and headaches. Hematological: Does not bruise/bleed easily. Psychiatric/Behavioral: Positive for sleep disturbance. Negative for confusion and suicidal ideas. Medical History[2] Surgical History[3] Family History[4] Social History[5] Allergies[6] Current Medications[7] Objective BP 138/85 Pulse 76 Ht 1.651 m (5' 5) Wt (!) 181 kg (398 lb) BMI 66.23 kg/m Physical Exam Vitals reviewed. Constitutional: Appearance: [...] Mood normal. Behavior: Behavior normal. Testing Labs done at [place] Dec 2024 CMP -glucose 138* Rest - approp Lipid -tchol 221* -TG 161* -HDL 46 -LDL 143 Mag 1.9 TSH/free t4 - Wnl B12 788 Iron studies - Wnl Hgba1c 5.5 CBC = WNl Impression MDM 1) COMPLEXITY: MORE THAN 1 [...] Iron and TIBC Ferritin Magnesium Vitamin B12 Dyspepsia R10.13 Relevant Medications omeprazole (PriLOSEC) [address] capsule Glucose intolerance (impaired glucose tolerance) - Primary R73.02 Relevant Orders CBC and Auto Differential Comprehensive Metabolic Panel Hemoglobin A1C Lipid Panel Iron and TIBC Ferritin Magnesium Vitamin B12 Hypercholesterolemia E78.00 Relevant Orders CBC and Auto Differential Comprehensive Metabolic Panel Hemoglobin A1C Lipid Panel Iron and TIBC Ferritin Magnesium Vitamin B12 Low ferritin R79.0 Relevant Orders Iron and TIBC Ferritin Low vitamin B12 level R79.89 Relevant Orders Vitamin B12 Class 3 severe obesity due to excess calories with serious comorbidity and body mass index (BMI) of 60.0 to 69.9 in adult E66.813, Z68.44 BEST (obstructive sleep apnea) G47.33 FU in 6 mo with labs at [facility] fasting and med check [1] Patient Active Problem List Diagnosis Acanthosis [...] 12 hours. furosemide (Lasix) 40 mg tablet Take 1 tablet (40 mg) by mouth once daily as needed. hydrOXYzine HCL (Atarax) 25 mg tablet Take 1 tablet (25 mg) by mouth as needed at bedtime for anxiety (anxiety /insomnia). 30 tablet 2 Larry Fe 06/17, 28, 1 mg-20 mcg [...] for this visit. documented in this encounter [facility] Work Phone: 10-30-2024 History of Present illness Narrative Subjective [...] been on/off adipex [facility] tomorrow [...] 1 tablet (40 mg). Larry Fe 06/17, 28, 1 mg-20 mcg [...] for this visit. documented in this encounter [facility] Work Phone: 09-11-2024 History of Present illness Narrative Subjective Patient ID: Yemi Morejon is a 29 y.o. female who presents for Follow-up (SLEEP STUDY DONE LAST WEEK ) [facility] FU sleep study Severe BEST APAP 5-15 [...] and has been on/off adipex Preventative testing [facility] - [facility] - visit is set for tomorrow [...] F2 F CPAP compliance APAP supplies to [facility] [1] Patient Active Problem List Diagnosis Acanthosis [...] 1 tablet (40 mg). Larry Fe 06/17, 28, 1 mg-20 mcg [...] for this visit. documented in this encounter [facility] Work Phone: 08-07-2024 Evaluation + Plan note Associated Problem(s): Binge eating disorder As above. Orders: AMB REFERRAL TO BARIATRIC SURG [facility] 08-07-2024 Evaluation + Plan note Associated Problem(s): Benign essential hypertension As above. [facility] 08-07-2024 Evaluation + Plan note Associated Problem(s): Impaired glucose tolerance As above. 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 Orders: AMB REFERRAL TO BARIATRIC SURG Associated Problem(s): Benign essential hypertension As above. Associated Problem(s): Impaired glucose tolerance As above. documented in this encounter [facility] 07-30-2024 History of Present illness Narrative Subjective Patient ID: Yemi Morejon is a 29 y.o. female who presents for Hospital Follow-up (HOSPITAL DISCHARGE 07/24/24 [facility] - PALPITATIONS, A.FIB (NEW ONSET) PATIENT CONTINUES TO HAVE HEART PALPITATIONS - APPOINTMENT SCHEDULED WITH [facility] 08/14/24. ). HPI F/U AFTER [...] . Has F/U. documented in this encounter [facility] Work Phone: 07-24-2024 Note [facility] Medical Records Department [address] [place] [address] Discharge Summary 07/24/24 1220 MR#: [id number] Acct: [id number] Name: YEMI JC Rep #: [id number] : 1995 29 From: Nirmala Arenas DO PCP: JOHN Ramirez Status:[id number] Providers Date of Admission: 07/23/24 Date of Discharge: 07/24/24 Primary Care Physician: JOHN Ramirez Consultations 07/22/24 22:56 Consult: Cardiology Routine Consulting Provider: [facility] Reason for Consult: New-onset AFIB with RVR. [...] 29-year-old white female who presents emergency department [facility] on 07/22/2024 with palpitations, racing heart, [...] had recent travel prior to presentation for MYOSs. She stopped taking the stimulant 2 days [...] exertion Essential hypertension (more content not included)... [facility] 07-23-2024 Evaluation note Diagnosis Onset Date Resolution Atrial fibrillation with rapid ventricular response acute July 23, 2 025 4:23pm Leukocytosis acute June 4:23pm Morbid obesity with BMI of 60.0-69.9, adult acute June 4:23pm Palpitations acute June, 2024 4:23pm Acute anxiety resolved July 232024 4:23pm Adverse drug reaction resolved Jun ru2024 4:23pm Dyspnea on exertion resolved 2024 4:23pm Essential hypertension inactive 2024 4:23pm Morbid obesity with BMI of 60.0-69.9, adult acute August 02 025 8:58am Atrial fibrillation inactive August 02, 2024 8:58am [facility] Work Phone: 1(866) 255-883501-22-2025 History of Present illness Narrative* Ashlyn Gates [...] been on/off adipex Preventative testing PAP - [facility] - visit is set for tomorrow [...] once daily. 30 tablet 11 Larry Fe 06/17, 28, 1 mg-20 mcg [...] normal. Behavior: Behavior normal. Testing Labs at [facility] CBC - WNL CMP -glucose 113* -rest approp Mag 1.9 Iron 64 Ferritin 19 Lipid -tchol 228* -TG 170 -HDL 52 -LDL 142* B12 683 Labs at [facility] November 2023 CBC -hgb 11.9* - rest approp CMP -glucose 109* - rest approp Hgba1c 5.2 Mag 2.0 Iron 51 (50-170) Iron sat 11.9* Ferritin 10 (8-252) Lipid -tchol 223* -TG 144 -HDL 47 -LDL 147* B12 339 TSH/free t4 - WNl Labs at [facility] Apr 2023 Lipid -tchlo 198 -TG 86 -HDL 45 -LDL 136* CMP -glucose 119* -rest approp Ferritin 22 Iron 52 CBC - approp B12 397 Hgba1c 5.1 Labs at [facility] October 2022 CMP -glucose 102 -rest approp [...] FU in 6 mo with labs at [place] documented in this [facility] Work Phone: [phone]) 109-132712-20-2024 Evaluation + Plan note* Assessment & Plan [...] 1 capsule by mouth daily every morning. [id number] History of Present illness Narrative* Emmie Hesham - 05/17/2024 9:40 AM EST Nurse Note: [...] Neurological: Negative for dizziness and headaches. * Fabi Giraldo, WATER FITNESS INSTRUCTOR-RESISTOR WINDER - 05/17/2024 9:40 AM EST Chief Complaint [...] plan. MADDIE Tuttle 05/17/2024 documented in this [facility]12-20-2024 Miscellaneous Notes* Assessment & Plan Note - [...] mouth daily every morning. [facility] Evaluation + Plan note * Assessment [...] 1 capsule by mouth daily every morning. [facility]11-13-2024 History of Present illness Narrative* Kim Guzman - 04/10/2024 9:20 AM EST Nurse Note: [...] and are negative. * MADDIE Tuttle - 04/10/2024 9:20 AM EST Chief Complaint Patient presents with Weight Management Session Discuss Vyvanse, was having rapid heart rate while taking [facility]. [facility] to [facility] [...] plan. MADDIE Tuttle 04/10/2024 documented in this [facility]11-13-2024 Miscellaneous Notes* Assessment & Plan Note - [...] mouth daily every morning. documented in this [facility]10-10-2024 History of Present illness Narrative* Abeba Hudson [...] is beneficial with no side effects. * MADDIE Tuttle - 03/07/2024 1:40 PM EDT Chief Complaint [...] she is looking into different counselors in [place], she has also started viibryd and feels [...] Exercise: just signed up with co-worker at [employer]. Barriers: binge eater, emotional eating She has [...] plan. MADDIE Tuttle 03/07/2024 [facility] History of Present illness Narrative* Ashlyn Gates PA-C - 12/18/2023 2:00 PM EDT Subjective Patient ID: Yemi Morejon is a 28 y.o. female who presents for Follow-up (6 MO F/U LABS-[place]; NO COMPLAINTS TODAY) HPI to review labs [...] been on/off adipex Preventative testing PAP - [facility] - visit is set for tomorrow mammo - suggest age 40 colonoscopy - suggest age 45-50 DEXA - suggest age 50-55 Fall - Neg November 2023 PHQ2 - Neg November 2023 Patient Active Problem List Diagnosis Acanthosis nigricans Benign essential hypertension Chronic low back pain Fibromyalgia Degeneration of intervertebral disc of lumbar region Depression, major, single episode, mild ([facility]) Dyspepsia JESSICA (generalized anxiety disorder) Glucose intolerance (impaired glucose tolerance) Hypercholesterolemia Low ferritin Low vitamin B12 level Lumbar radiculitis Lumbosacral radiculitis 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 (Multi) Prolapsed lumbar disc Sacroiliitis ([facility]) Review of Systems Constitutional: Positive for fatigue. [...] normal. Behavior: Behavior normal. Testing Labs at November 2023 CBC -hgb 11.9* - rest approp CMP -glucose 109* - rest approp Hgba1c 5.2 Mag 2.0 Iron 51 (50-170) Iron sat 11.9* Ferritin 10 (8-252) Lipid -tchol 223* -TG 144 -HDL 47 -LDL 147* B12 339 TSH/free t4 - [place] Lipid -tchlo 198 -TG 86 -HDL 45 -LDL 136* CMP -glucose 119* -rest approp Ferritin 22 Iron 52 CBC - approp B12 397 Hgba1c 5.1 Labs at October 2022 CMP -glucose 102 -rest approp [...] FU in 6 mo with labs at [place] fasting and med check documented in this [facility] Work Phone: 1(533) 681-632207-12-2024 History of Present illness Narrative* Lennie Garcia [...] reviewed and are negative. * Fabi Giraldo APRN-RESISTOR WINDER - 12/08/2023 2:20 PM EDT Chief Complaint [...] she is looking into different counselors in [place], she has also started viibryd and feels [...] Exercise: just signed up with co-worker at [employer]. Barriers: binge eater, emotional eating She has [...] plan. MADDIE Tuttle 12/08/2023 documented in this [facility]04-11-2024 History of Present illness Narrative* Lennie Garcia [...] are negative. * Fabi Giraldo APRN-ONEAL - 09/07/2023 3:20 PM EDT Chief Complaint [...] she is looking into different counselors in [place], she hasalso started viibryd and feels like [...] plan. MADDIE Tuttle 09/07/2023 [facility] History of Present illness Narrative* MADDIE Merida - 08/12/2023 8:10 AM EDT [facility] MADDIE Merida Visit Note - 08/12/2023 9:15 AM This note was generated with voice recognition software and may contain errors including spelling, grammar, syntax, and misrecognization of what was dictated. Patient: Yemi Jc, , 28 y.o., female PCP: Ashlyn Gates [...] PRESENT ILLNESS: The history was obtained from patientJeancarlos Galaviz is a 28 y.o. female, who presents [...] and Nyquil without much relief; no other ihej-mld-myzcmtm medications or home remedies for symptom management. [...] Musculoskeletal: Grossly normal; appropriate for age. Integumentary: [place], warm, dry, and intact. No rashes or [...] and answered. MADDIE Merida Advanced Practice Provider [facility] documented in this [facility] Work Phone: 1(573) 260-276112-28-2023 History of Present illness Narrative* Kim Guzman [...] plan. MADDIE Tuttle 05/25/2023 [id number] History of Present illness Narrative* Ashlyn Gates PA-C - 05/23/2023 2:00 PM EST Subjective Patient ID: Yemi Morejon is a 28 y.o. female who presents for Follow-up (6 MONTH FOLLOW UP + LABS @ [facility] SCANNED IN MEDIA. /PT WANTS TO [...] and has been on/off adipex Preventative testing [facility] - [facility] - visit is set for tomorrow [...] COLONOSCOPY 11/16/2017 DR. PLEITEZ; NORMAL; [facility] [place] ESOPHAGOGASTRODUODENOSCOPY 11/16/2017 DR. PLEITEZ; Mild chronic [...] Mood normal. Behavior: Behavior normal. [facility] Lipid -tchlo 198 -TG 86 -HDL 45 -LDL 136* CMP -glucose 119* -rest approp Ferritin 22 Iron 52 CBC - approp B12 397 Hgba1c 5.1 Labs [facility] October 2022 CMP -glucose 102 -rest approp [...] Fibromyalgia M79.7 Depression, major, single episode, mild (CMS/[facility]) F32.0 Relevant Medications vilazodone (Viibryd) 10 mg [...] (BMI) of 60.0 to 69.9 in adult (CMS/[facility]) E66.1, Z68.44 Other Visit Diagnoses Codes Decreased libido R68.82 FU in 1-2 mo with med check /mood check FU in 6 mo with labs at [place] fasting and med check documented in this [facility] Work Phone: 1([phone]) 623-189809-20-2023 History of Present illness Narrative* Kim Guzman [...] and are negative. * MADDIE Tuttle - 02/15/2023 8:00 AM EDT Chief Complaint [...] and cook. Exercise: has been going to [place] but has been inconsistent due to work [...] plan. MADDIE Tuttle 02/15/2023 documented in this [facility]-16-2023 History of Present illness Narrative* On a scale of 0 to 10, the patient rates the pain at 0. * Controlled Substance: * I have personally reviewed the [place]ARRS report for YEMI JC. I have considered the risks ofabuse, dependence, addiction and diversion. [facility] Work Phone: [phone]) 320-994908-15-2023 History of Present illness NarrativeOn a scale of 0 to 10, the patient rates the pain at 0.[facility] Work Phone: [phone]) 106-378706-29-2023 History of Present illness Narrative* Lennie Garcia LPN - 11/24/2022 3:00 PM EDT Nurse [...] reviewed and are negative. * Fabi Giraldo APRN-RESISTOR WINDER - 11/24/2022 3:00 PM EDT Chief Complaint [...] lists, etc. Exercise: she is going to [employer] twice a week, plans to get outside [...] plan. MADDIE Tuttle 11/24/2022 documented in this [facility]06-06-2023 History of Present illness Narrative* Ashlyn Gates [...] been on/off adipex Preventative testing PAP - [facility] - visit is set for tomorrow [...] HISTORY 02/15/2019 Esophagogastroduodenoscopy OTHER SURGICAL HISTORY 02/15/2019 [place] tooth extraction OTHER SURGICAL HISTORY 09/25/2019 Colonoscopy [...] normal. Behavior: Behavior normal. Testing Labs [facility] October 2022 CMP -glucose 102 -rest approp [...] FU in 6 mo with labs at [facility] - fasting and med check documented in this [facility] Work Phone: [phone]) 503-491905-31-2023 History of Present illness Narrative* Gwendolyn Wallace [...] before medication.. Exercise: she is going to [employer] twice a week, plans to get outside [...] plan. MADDIE Tuttle 10/26/2022 documented in this [facility]04-04-2023 History of Present illness Narrative* Kim Guzman - 08/30/2022 1:40 PM EDT Nurse Note: [...] and are negative. * MADDIE Tuttle - 08/30/2022 1:40 PM EDT Chief Complaint [...] feel like she is receiving benefit with [employer] although still has some days when she wants to eat everything in sight and admits is undera lot of stress on those days, she is seeing her counselor every couple weeks. Exercise: she is going to [employer] twice a week. Barriers: binge eater, emotional [...] plan. MADDIE Tuttle 08/30/2022 documented in this [facility]-28-2023 History of Present illness Narrative* Kim Megan - 07/26/2022 2:20 PM EST Nurse Note: [...] reviewed and are negative. * Fabi Giraldo, MECCA-RESISTOR WINDER - 07/26/2022 2:20 PM EST Chief Complaint [...] be beneficial. Exercise: she is going to [employer] twice a week. Barriers: binge eater, emotional [...] plan. MADDIE Tuttle 07/26/2022 documented in this [facility]-31-2023 History of Present illness Narrative* Kim Guzman [...] other day. Exercise: she is going to [employer] twice a week. Barriers: binge eater, emotional [...] plan. MADDIE Tuttle 06/28/2022 documented in this [facility]-29-2022 History of Present illness Narrative* Lennie Garcia [...] and are negative. * MADDIE Tuttle - 04/26/2022 3:20 PM EST Chief Complaint Patient presents with Weight Management Session Fatigue HPI: Regarding Weight Gain: Yeim Jc is a 27 y.o. y.o. female [...] plan. MADDIE Tuttle 04/26/2022 documented in this [facility]-27-2022 History of Present illness Narrative* Meena Ayala [...] reviewed and are negative. * Fabi Giraldo, WATER FITNESS INSTRUCTOR-RESISTOR WINDER - 03/24/2022 3:20 PM EDT Chief Complaint [...] plan. MADDIE Tuttle 03/24/2022 documented in this [facility]29-2022 History of Present illness Narrative* Lennie Garcia [...] and are negative. * MADDIE Tuttle - 02/24/2022 3:40 PM EDT Chief Complaint [...] plan. MADDIE Tuttle 02/24/2022 documented in this [facility]-31-2022 History of Present illness Narrative* Nkechi Headley [...] reviewed and are negative. * Fabi Giraldo, WATER FITNESS INSTRUCTOR-RESISTOR WINDER - 01/26/2022 3:00 PM EDT Chief Complaint [...] since last visit, Exercise: is going to [employer] and works out for an hour 2-3 [...] plan. MADDIE Tuttle 01/27/2022 [facility] History of Present illness Narrative* On a scale of 0 to 10, the patient rates the pain at 4. * Pain Location: Low Back Pain and across both sides. * Pain Quality: Aching, Sharp and Spasm. * Pain Radiation: into bilat gluteals and down thighs mid way. * Sensory/ Motor: Numbness, Pins and [place] and Bilat lower legs at ankles, feet , hands and arms ongoing issue. * Timing/Duration: Constant and > 12 weeks duration. * Controlled Substance: * I have personally reviewed the OARRS report for YEMI JC. I have considered the risks ofabuse, dependence, addiction and diversion. * Exacerbating Factors: sitting. [facility] Work Phone: [phone]) [phone] History of Present illness Narrative* Lennie Garcia [...] and are negative. * MADDIE Tuttle - 11/25/2021 3:20 PM EDT Chief Complaint [...] scale is accurate. Exercise: is going to [employer] and works out for an hour 2-3 days a week, does both cardio and weight training, on days she is not at [employer] she is at least trying to get [...] plan. MADDIE Tuttle 11/25/2021 documented in this [facility]-01-2022 History of Present illness Narrative* Nicolette Lala [...] are negative. * Fabi Giraldo APRN-ONEAL - 10/27/2021 3:20 PM EDT Chief Complaint [...] and being more consistent with diet, discussed [place] law, patient must lose 12 pounds this [...] plan. MADDIE Tuttle 10/27/2021 documented in this [facility]05-04-2022 History of Present illness Narrative* Nicolette Lala [...] and are negative. * MADDIE Tuttle - 09/29/2021 3:00 PM EDT Chief Complaint [...] plan. MADDIE Tuttle 09/29/2021 documented in this [facility]04-07-2022 History of Present illness Narrative* Yaa Chinchilla [...] medication for the day, is going to waste picker prescription today, and just got off [...] plan. MADDIE Tuttle 09/02/2021 documented in this [facility]-08-2022 History of Present illness Narrative* Nicolette Lala [...] and are negative. * MADDIE Tuttle - 08/03/2021 3:00 PM EST Chief Complaint [...] plan. MADDIE Tuttle 08/03/2021 documented in this [facility]-08-2022 History of Present illness Narrative* MADDIE Tuttle [...] weight management session. [place] [facility] History of Present illness Narrative* On [...] Pain Management: * OPIOID RISK SCORE=2. [facility]: [phone] Chief complaint Narrative - Reported* An interactive [...] NASAL CONGESTION,WHEEZING,AND SHORTNESS OF BREATH. NO TEMP. -[facility] Work Phone: [phone]) [phone] History of Present illness Narrative* Patient presents today for.... * 1follow up illness * pt was diagnosed with COVID in mar through * she just treated supportively with OTC [...] pain - stable - following with dr ree PEÑA-[facility] Work Phone: [phone]) 944-756212-03-2021 History of Present illness Narrative* Fabi Irizarryhart, MECCA-RESISTOR WINDER - 04/30/2021 2:20 PM EST Chief Complaint [...] reviewed and are negative. documented in this [facility]-27-2021 History of Present illness Narrative* MADDIE Tuttle - 12/22/2020 3:40 PM EDT Chief Complaint [...] reviewed and are negative. documented in this [facility]-07-2021 History of Present illness Narrative* Zenia Falcon PA-C - 12/02/2020 4:45 PM EDT OLE Jc is a 25 y.o. female presenting [...] Social Gatherings with Friends and Family: Attends [employer] Services: Active Member of Clubs or Organizations: [...] Zenia Falcon PA-C 12/02/2020 documented in this [facility]07-07-2021 Instructions* Patient Instructions* Zenia Falcon PA-C - [...] Where can you learn more? Go to [email or web address]/patiented. Enter K848 in the search box to learn more about 'Urinary Tract Infection (UTI) in Women: Care Instructions.' Interested in seeing a video go to [email or web address]/videolibrary to see all video content. Current as of: July 08, 2020 Content Version: 12.9 [employer]. Care instructions adapted under license by your healthcare professional. If you have questions about a medical condition or this instruction, always ask your healthcare professional. [employer] disclaims any warranty or liability for your use of this information. documented in this [facility]06-08-2021 History of Present illness Narrative* Zenia Falcon PA-C - 11/03/2020 2:20 PM EDT OLE Jc is a 25 y.o. female who presents today for complaint of cough since 5 days ago.Associated symptoms include sore throat, nasal congestion, ear pressure and mild fatigue. Denies fever/chills, headache, sinus pressure, ear pain, upset stomach, shortness of breath. Self treatment -Delsym, Sylvia GARCIA Constitutional: Denies Fever, chills Eyes: Denies visual [...] Zenia Falcon PA-C 11/03/2020 documented in this [facility]-08-2021 Instructions* Patient Instructions* Zenia Falcon PA-C - [...] care for yourself at home? Take an khzj-aef-nsfhzyh pain medicine, such as acetaminophen (Tylenol), ibuprofen (Advil, Motrin),or naproxen (Aleve). Read and follow all instructions on the label. If the doctor prescribed antibiotics, take them as directed. Do not stop taking them just because you feel better. You need to take the full course of antibiotics. Be careful when taking rmfu-uhc-xyevfmq cold or flu medicines and Tylenol at [...] Where can you learn more? Go to http://www.[email or web address].[email or web address]/patiented. Enter I933 in the search box to learn more about 'Sinusitis: Care Instructions.' Interested in seeing a video go to [email or web address]/videolibrary to see all video content. Current as of: April 29, 2020 Content Version: 12.9 [employer]. Care instructions adapted under license by your healthcare professional. If you have questions about a medical condition or this instruction, always ask your healthcare professional. [employer] disclaims any warranty or liability for your use of this information. documented in this [facility]-07-2021 History of Present illness Narrative* Charlotte Farah [...] reviewed and are negative. [facility]* Diagnosis Stress- Primary Other psychological or physical stress, not elsewhere classified Class 3 severe obesity with serious comorbidity and body mass index (BMI) of 60.0 to 69.9 in adult, unspecified obesity type [facility]* Diagnosis Acute maxillary sinusitis, recurrence not specified- Primary [facility] this [facility]* Diagnosis Acute cystitis with hematuria- Primary Acute cystitis documented [facility]* Diagnosis Class 3 severe obesity with serious comorbidity and body mass index (BMI) of 60.0 to 69.9 in adult, unspecified obesity type documented in this encounter [facility] note* Diagnosis Class 3 severe obesity with serious comorbidity and body mass index (BMI) of 60.0 to 69.9 in adult, unspecified obesity type [facility]* Diagnosis Benign essential hypertension- Primary Essential hypertension, benign Class 3 severe obesity with serious comorbidity and body mass index (BMI) of 60.0 to 69.9 in adult, unspecified obesity type documented in this encounter [facility] note* Diagnosis Benign essential hypertension- Primary Essential hypertension, benign Class 3 severe obesity with serious comorbidity and body mass index (BMI) of 60.0 to 69.9 in adult, unspecified obesity type documented [facility] this [facility]* Diagnosis Benign essential hypertension- Primary Essential hypertension, benign Class 3 severe obesity with serious comorbidity and body mass index (BMI) of 60.0 to 69.9 in adult, unspecified obesity type documented in this encounter [facility] note* Diagnosis Benign essential hypertension- Primary Essential hypertension, benign Class 3 severe obesity with serious comorbidity and body mass index (BMI) of 60.0 to 69.9 in adult, unspecified obesity type documented in this encounter [facility] note* Diagnosis Benign essential hypertension- Primary Essential hypertension, benign Class 3 severe obesity with serious comorbidity and body mass index (BMI) of 60.0 to 69.9 in adult, unspecified obesity type [facility]* Diagnosis Class 3 severe obesity with serious comorbidity and body mass index (BMI) of 60.0 to 69.9 in adult, unspecified obesity type documented in this encounter [facility] note* Diagnosis Benign essential hypertension- Primary Essential hypertension, benign BMI 50.0-59.9, adult Body Mass Index 50.0-59.9, adult [facility] Diagnosis BMI 50.0-59.9, adult Body Mass Index 50.0-59.9, adult documented in this [facility]* Diagnosis Benign essential hypertension- Primary Essential hypertension, benign Metabolic syndrome Dysmetabolic Syndrome X Fatigue, unspecified type documented in this [facility]* Diagnosis Benign essential hypertension- Primary Essential hypertension, benign BMI 50.0-59.9, adult Body Mass Index 50.0-59.9, adult documented in this encounter [facility] System[facility] noteNo assessment information availableWWilson Street Hospital Work Phone: Evaluation note* Diagnosis Binge eating disorder- Primary documented in this [facility]* Diagnosis Binge eating disorder [facility] Diagnosis Binge eating disorder- Primary Benign essential hypertension Essential hypertension, benign documented in this [facility]* Diagnosis Onset Date Resolution Status Acute bronchitis, unspecified acute Influenza A acute [facility] Work Phone: Evaluation note* Diagnosis Binge eating disorder- Primary Benign essential hypertension Essential hypertension, benign documented in this [facility]* Diagnosis Hypercholesterolemia- Primary Pure hypercholesterolemia Dyspepsia [...] in adult (CMS/HCC) documented in this encounter [facility] Work Phone: Evaluation note* Diagnosis Binge eating disorder- Primary Benign essential hypertension Essential hypertension, benign documented in this encounter [facility]* Diagnosis Binge eating disorder- Primary Benign essential hypertension Essential hypertension, benign documented in this [facility]* Diagnosis Benign essential hypertension- Primary [...] myositis Decreased libido documented in this encounter [facility] Work Phone: Evaluation note* Diagnosis Binge eating disorder documented in this [facility]* Diagnosis Acute viral syndrome- Primary documented in this encounter [facility] Work Phone: Evaluation note* Diagnosis Binge eating disorder documented in [facility]* Diagnosis Binge eating disorder- Primary Benign essential hypertension Essential hypertension, benign documented in this [facility]* Diagnosis Binge eating disorder, unspecified severity- Primary Benign essential hypertension Essential hypertension, benign documented in [facility]* Diagnosis Binge eating disorder, unspecified severity- Primary documented in [facility]* Diagnosis Benign essential hypertension- Primary [...] Generalized anxiety disorder documented in this encounter [facility] Work Phone: Evaluation note* Diagnosis Binge eating disorder, unspecified severity- Primary Binge eating disorder, unspecified severity documented [facility]* Diagnosis Glucose intolerance (impaired glucose tolerance)- [...] episode, mild (CMS-HCC) documented in this encounter [facility] Work Phone: Evaluation note* Diagnosis Paroxysmal atrial fibrillation (Multi)- Primary Atrial fibrillation Anxiety Anxiety state, unspecified Snoring Other dyspnea and respiratory abnormality Family history of sleep apnea Family history of other condition Morbid obesity with BMI of 60.0-69.9, adult (Multi) Glucose intolerance (impaired glucose tolerance) Impaired glucose tolerance test Benign essential hypertension Essential hypertension, benign Palpitations documented in this encounter [facility] Work Phone: Evaluation note* Diagnosis Binge eating disorder, unspecified severity- Primary Binge eating disorder, unspecified severity BMI 60.0-69.9, adult- Primary Body Mass Index 60.0-69.9, adult Binge eating disorder, unspecified severity Atrial fibrillation, unspecified type Benign essential hypertension Essential hypertension, benign Impaired glucose tolerance Impaired glucose tolerance test [facility] Diagnosis BEST (obstructive sleep apnea)- Primary Obstructive sleep apnea (adult) (pediatric) Depression, major, single episode, mild ([facility]) JESSICA (generalized anxiety disorder) Generalized anxiety disorder Paroxysmal atrial fibrillation (Multi) Atrial fibrillation Benign essential hypertension Essential hypertension, benign Class 3 severe obesity due to excess calories with serious comorbidity and body mass index (BMI) of 60.0 to 69.9 in adult Binge eating disorder, unspecified severity documented in this encounter [facility] Work Phone: Evaluation note* Diagnosis BEST (obstructive sleep apnea)- Primary Obstructive sleep apnea (adult) (pediatric) JESSICA (generalized anxiety disorder) Generalized anxiety disorder Benign essential hypertension Essential hypertension, benign Paroxysmal atrial fibrillation (Multi) Atrial fibrillation Class 3 severe obesity due to excess calories with serious comorbidity and body mass index (BMI) of 60.0 to 69.9 in adult documented in this encounter [facility] Work Phone: Evaluation note* Diagnosis Glucose intolerance (impaired glucose tolerance)- Primary Impaired glucose tolerance test Dyspepsia Dyspepsia and other specified disorders of function of stomach Hypercholesterolemia Pure hypercholesterolemia Benign essential hypertension Essential hypertension, benign Class 3 severe obesity due to excess calories with serious comorbidity and body mass index (BMI) of 60.0 to 69.9 in adult Low vitamin B12 level Low ferritin Other nonspecific findings on examination of blood BEST (obstructive sleep apnea) Obstructive sleep apnea (adult) (pediatric) documented in this encounter [facility] Work Phone: History of Present illness Narrative* On a scale of 0 to 10, the patient rates the pain at 3. * Pain Location: Low Back Pain. * Pain Quality: Stabbing. * Pain Radiation: nayely hips, buttocks. * Timing/Duration: Constant and > 12 weeks duration. -[facility] Work Phone: History of Present illness Narrative* [facility] PATIENT THAT Presents today for 6 MONTHS [facility] LAB F/U. NO NEW COMPLAINTS * LIPIDS- DIET MODIFICATIONS DISCUSSED * ANXIETY/DEPRESSION- STABLE * FIBRO/BACK PAIN- FOLLOWS WITH PAIN MANAGEMENT. STABLE * B12- STABLE * HTN- STABLE -[facility] Work Phone: History [...] 45-50 * DEXA - suggest age 50-55 -[facility] Work Phone: History [...] 45-50 * DEXA - suggest age 50-55 [facility] Work Phone: History [...] * 3 Preventative testing * PAP - [facility] - last exam was september * mammo - suggest age 40 * colonoscopy - suggest age 45-50 * DEXA - suggest age 50-55 [facility] Work Phone: Reason for referral (narrative)No reason for referral information availableWWilson Street Hospital Work Phone: Summary Purpose Family History No Family History Records Found Grandparent Name Dates Details Family history of [...] Allergies: Mother, Grandpare nt Status:Active Advance Directives No Advanced Directives Records Found Advance Directive Response Recorded Date/ Time Living Will No September 03, 2022 7:57pm Power of Manager Grant No September 03 7:57pm Advance Directive Response Recorded Date/ Time Living Will No September 03, 2022 6:57pm Power of Manager Grant No September 03 6:57pm Advance Directive Response Recorded Date/ Time Living Will No August 01, 2024 7:44am Do you have a Healthcare Power of Manager Grant? No August 01, 2024 7:44am Living Will No September 03, 2022 7:57pm Do you have a Healthcare Power of Manager Grant? No September 03, 2022 7:57pm Living Will No July 23, 12:07am Do you have a Healthcare Power of Manager Grant? No July 23, 2024 12:07am History of Present Illness * Fabi Giraldo, MECCA-RESISTOR WINDER - 08/06/2020 3:40 PM EST Chief Complaint [...] with 1/2tab until tolerating, increase water, discussed [place] Law and minimum weight loss goal of [...] unspecified obesity type Charlotte Farah MD [address] [place] [address] Specialty Diagnoses / Procedures Referred By Contac t Referred To Contact Diagnoses Class 3 severe obesity with serious comorbidity and body mass index (BMI) of 60.0 to 69.9 in adult, unspecified obesity type Fabi Giraldo APRN-RESISTOR WINDER [address] [place] [address] Referral ID Status Reason Start Date Expiration Date Visits Re quested Visits Authorized [id number] Closed 1 1 Referral ID Status Reason Start Date Expiration Date Visits Re quested Visits Authorized [id number] Closed 1 1 Referral ID Status Reason Start Date Expiration Date Visits Re quested Visits Authorized [id number] Closed 1 1 Referral ID Status Reason Start Date Expiration Date Visits Re quested Visits Authorized [id number] Closed 1 1 Referral ID Status Reason Start Date Expiration Date Visits Re quested Visits Authorized [id number] Closed 1 1 Referral ID Status Reason Start Date Expiration Date Visits Re quested Visits Authorized [id number] Closed 1 1 Referral ID Status Reason Start Date Expiration Date Visits Re quested Visits Authorized [id number] Closed 1 1 Specialty Diagnoses / Procedures Referred By Contac t Referred To Contact Diagnoses BMI 50.0-59.9, adult Fabi Giraldo APRN-RESISTOR [employer] [address] [place] [address] Referral ID Status Reason Start Date Expiration Date Visits Re quested Visits Authorized [id number] Closed 1 1 Referral ID Status Reason Start Date Expiration Date V isits Requested Visits Authorized [id number] Pending Review 1 1 Specialty Diagnoses / Procedures Referred By Neyda hensley Referred To Contact Diagnoses Low vitamin B12 level Ashlyn Gates PA-C [address] [place] [address] Referral ID Status Reason Start Date Expiration Date V isits Requested Visits Authorized [id number] Pending Review 12/18/2023 12/17/2024 1 1 Chief [...] and were reviewed. 6 MONTH F/U LABS ([facility])6 MONTH F/U LABS ([facility])* FU meds reports today having pain across her lower back both sides that radiates into bilat gluteals and done bilat thighs mid way fees muscular rates 4/10,describes as sharp and aching she has numbness and tingling in her bilat hands and ankles into her bilat feet. her pain is worse with sitting.She will need a RF on tizanidine send to [facility]. * This is a 26-year-old female here [...] AFIB WITH PERSISTENT RVR Febru maico 2024 7:34am [facility] AFIB WITH PERSISTENT RVR Febru maico 2024 3:11pm NEW [facility] AFIB WITH PERSISTENT RVR Febru maico 2024 4:23pm NEW [facility] AFIB WITH PERSISTENT RVR Febru maico 2024 8:29am NEW [facility] AFIB WITH PERSISTENT RVR Febru maico 2024 12:20pm chest pain,sob,recent afib August 01 6:40am [facility] / AFIB August 02, 2024 8:58 am Jewel [...] section and content) DATE CREATED AUTHOR 11/21/2017 [facility] DATE CREATED AUTHOR AUTHOR'S ORGANIZ ATION 09/18/2018 [facility] DATE CREATED AUTHOR AUTHOR'S ORGANIZ ATION 07/13/2022 [facility] DATE CREATED AUTHOR AUTHOR'S ORGANIZ ATION 01/12/2023 [facility] DATE CREATED AUTHOR AUTHOR'S ORGANIZ ATION 01/14/2023 [facility] DATE CREATED AUTHOR AUTHOR'S ORGANIZ ATION 08/05/2024 [facility] DATE CREATED AUTHOR AUTHOR'S ORGANIZ ATION 08/09/2024 [facility] DATE CREATED AUTHOR AUTHOR'S ORGANIZ ATION 09/05/2024 [facility] DATE CREATED AUTHOR AUTHOR'S ORGANIZ ATION 01/31/2025 [facility] DATE CREATED AUTHOR AUTHOR'S ORGANIZ ATION 02/19/2025 [facility] Reason for Visit (unrecogniz ed section and content) Reason Comments Weight Gain MWL #1 Hypertension Status Reason Specialty Diagnoses / Procedures Referred By Contact Referred To Contact New Request Family Medicine Diagnoses Morbid obesity Osmar Vargas MD [address] [place] [address] Fabi Giraldo APRN-CNP [address] [place] [address] Reason Comments Weight Management Session Adipex #2 [...] 6 MONTH FOLLOW UP + LABS @ [facility] SCANNED IN MED[facility]. PT WANTS TO SEE ABOUT CHANGING HER DEPRESSION/ ANXIETY MEDS. FEELS LIKE HER SEX DRIVE IS DECREASING Reason Comments URI CHEST CONGESTION, CO UGHING UP BROWN MUCUS , SOB, X 2 DAYS DAYQUIL NO RELIEF Reason Comments Fatigue Eating Disorder Reason Comments Weight Management Session Discuss Vyvans e, was having rapid heart rate while taking medication. Per [employer] message Dr. Farah advised to hold medication and make appointment to discuss Fatigue Reason Comments Follow-up 6 MO F/U LABS-[facility]; NO COMPLAINTS TODAY Specialty Diagnoses / Procedures Referred By Contac t Referred To Contact Diagnoses Low vitamin B12 level Ashlyn Gates, PAEulaliaC [address] [place] [address] Referral ID Status Reason Start Date Expiration Date V isits Requested Visits Authorized [id number] Pending Review 12/18/2023 12/17/2024 1 1 Reason Comments Eating Disorder Reason Comments Follow-up 3 MO F/U WITH LABS N O COMPLAINTS Reason Comments Hospital Follow-up HOSPITAL DISCHARGE [facility] - PALPITATIONS, A.FIB ([facility]) PATIENT CONTINUES TO HAVE HEART PALPITATIONS - APPOINTMENT SCHEDULED WITH [facility] 08/14/24. Reason Comments Follow-up SLEEP STUDY DONE LAS T WEEK Reason Comments Follow-up Discuss cpap+ breath ing Reason Comments Follow-up 6 MONTH F/U WITH LAB S ([facility]). Care Teams (unrecognized sec tion and content) Health And Safety Representative Relationship Specialty Start Date End Date Ashlyn Gates PA [address] [place] [address] PCP - General Physician Scrap Drop Crane Operator 06/18/20 Health And Safety Representative Relationship Specialty Start Date End Date Ashlyn Gates PA [address] [place] [address] PCP - General Physician Scrap Drop Crane Operator 06/18/20 Health And Safety Representative Relationship Specialty Start Date End Date Ashlyn Gates PA [address] [place] [address] PCP - General Physician Scrap Drop Crane Operator 06/18/20 Health And Safety Representative Relationship Specialty Start Date End Date Ashlyn Gates PA [address] [place] [address] PCP - General Physician Scrap Drop Crane Operator 06/18/20 Health And Safety Representative Relationship Specialty Start Date End Date Ashlyn Gates PA [address] [place] [address] PCP - General Physician Scrap Drop Crane Operator 06/18/20 Health And Safety Representative Relationship Specialty Start Date End Date Ashlyn Gates PA [address] [place] [address] PCP - General Physician Scrap Drop Crane Operator 06/18/20 Health And Safety Representative Relationship Specialty Start Date End Date Ashlyn Gates PA [address] [place] [address] PCP - General Physician Scrap Drop Crane Operator 06/18/20 Health And Safety Representative Relationship Specialty Start Date End Date Ashlyn Gates PA [address] [place] [address] PCP - General Physician Scrap Drop Crane Operator 06/18/20 Health And Safety Representative Relationship Specialty Start Date End Date Ashlyn Gates PA [address] [place] [address] PCP - General Physician Scrap Drop Crane Operator 06/18/20 Health And Safety Representative Relationship Specialty Start Date End Date Ashlyn Gates PA [address] [place] [address] PCP - General Physician Scrap Drop Crane Operator 06/18/20 Health And Safety Representative Relationship Specialty Start Date End Date Ashlyn Gates PA [address] [place] [address] PCP - General Physician Scrap Drop Crane Operator 06/18/20 Health And Safety Representative Relationship Specialty Start Date End Date Ashlyn Gates PA [address] [place] [address] PCP - General Physician Scrap Drop Crane Operator 06/18/20 Health And Safety Representative Relationship Specialty Start Date End Date Ashlyn Gates PA [address] [place] [address] PCP - General Physician Scrap Drop Crane Operator 06/18/20 Health And Safety Representative Relationship Specialty Start Date End Date Ashlyn Gates PA [address] [place] [address] PCP - General Physician Scrap Drop Crane Operator 06/18/20 Health And Safety Representative Relationship Specialty Start Date End Date Ashlyn Gates PA [address] [place] [address] PCP - General Physician Scrap Drop Crane Operator 06/18/20 Team Status: Active Member Role Status Dates JOHN Gutierrez Primary Care Provider Active Team Status: Inactive Member Role Status Dates JOHN Gutierrez Primary Care Provider, Referr ing Provider Active Howie LOPEZ, PA Attending Provider Active Team Status: Inactive [...] Schroeder DO Attending Provider, Referring Provider Active Health And Safety Representative Relationship Specialty Start Date End Date Ashlyn Gates PA-C [address] [place] [address] PCP - General 01/29/19 Health And Safety Representative Relationship Specialty Start Date End Date Ashlyn Gates PA [address] [place] [address] PCP - General Physician Scrap Drop Crane Operator 06/18/20 Health And Safety Representative Relationship Specialty Start Date End Date Ashlyn Gates PA [address] [place] [address] PCP - General Physician Scrap Drop Crane Operator 06/18/20 Health And Safety Representative Relationship Specialty Start Date End Date Ashlyn Gates PA-C [address] [facility] [place] [address] PCP - General 01/29/19 Team Status: Inactive Member Role Status Dates JOHN Gutierrez Primary Care Pr ovider, Attending Provider, Referring Provider Active Health And Safety Representative Relationship Specialty Start Date End Date Ashlyn Gates PA [address] [place] [address] PCP - General Physician Scrap Drop Crane Operator 06/18/20 Health And Safety Representative Relationship Specialty Start Date End Date Ashlyn Gates PA-C [address] [place] [address] PCP - General 01/29/19 Health And Safety Representative Relationship Specialty Start Date End Date Ashlyn Gates PA [address] [place] [address] PCP - General Physician Scrap Drop Crane Operator 06/18/20 Health And Safety Representative Relationship Specialty Start Date End Date Ashlyn Gates PA [address] [place] [address] PCP - General Physician Scrap Drop Crane Operator 06/18/20 Health And Safety Representative Relationship Specialty Start Date End Date Ashlyn Gates PA-C [address] [place] [address] PCP - General 01/29/19 Health And Safety Representative Relationship Specialty Start Date End Date Ashlyn Gates PA-C [address] [place] [address] PCP - General 01/29/19 Health And Safety Representative Relationship Specialty Start Date End Date Ashlyn Gates PA-C [address] [place] [address] PCP - General 01/29/19 Miguelina Ramos CMA Air Quality ConsultantBurlapper 07/25/24 Health And Safety Representative Relationship Specialty Start Date End Date Ashlyn Gates PA [address] [place] [address] PCP - General Physician Scrap Drop Crane Operator 06/18/20 Team Status: Inactive Member Role Status Dates JOHN Gutierrez Primary Care Provider Active Start: June 17, 2024 End: June 17, 2024 JOHN Gutierrez Attending Provider Active Start: June 17, 2024 End: June 17, 2024 JOHN Gutierrez Referring Provider Active Start: June 17, 2024 End: June 17, 2024 Team Status: Active Member Role Status Dates JOHN Gutierrez Primary Care Provider Active Start: July 22, [...] JOHN Gutierrez Primary Care Provider Active Start: July 23, [...] JOHN Gutierrez Primary Care Provider Active Start: July 23, 2024 Dr. Joselin Craig MD Attending Provider Activ e Start: July 23, 2024 Team Status: Active Member Role Status Dates JOHN Gutierrez Primary Care Provider Active Start: July 23, [...] Active Start: July 23, 2024 Heather Vizcaino WEATHERIZATION DIRECTOR, WEATHERIZATION DIRECTOR-C Other Provider Active Start : July 23, 2024 Virginia Peña PA, PA Other Provider Active Start: July 23, 2024 JOHN Mccall Other Provider Active Start: July 23, 2024 Team Status: Inactive Member Role Status Dates Ashlyn LOPEZ, PA Primary Care Provider Active Start: July 23, 2024 End: July 24, 2024 Dr. Eric Figueroa DO [...] 2024 End: July 24, 2024 Heather Vizcaino WEATHERIZATION DIRECTOR, WEATHERIZATION DIRECTOR-C Other Provider Active Start : July 23, [...] Active Start: July 24, 2024 Heather Vizcaino WEATHERIZATION DIRECTOR, WEATHERIZATION DIRECTOR-C Other Provider Active Start : July 24, 2024 Virginia LOPEZ PA Other Provider Active Start: July 24, 2024 JOHN Mccall Other Provider Active Start: July 24, 2024 Dr. Nirmala Arenas DO Other Provider Active Start : July 24, 2024 Dr. Marlin Sidhu MD Other Provider Active Star t: July 24, 2024 Team Status: Active Member Role Status Dates JOHN Gutierrez Primary Care Provider Active Start: July 24, [...] Star t: July 24, 2024 Dr. Danial Hrenández MD Other Provider Active St art: July 24, 2024 Dr. Joselin Craig MD Other Provider Active Start: July 24, 2024 Dr. Chucky Thakkar MD Other Provider Active S tart: July 24, 2024 Dr. Jeffrey Cross MD Other Provider Active Start: July 24, 2024 eHather Vizcaino WEATHERIZATION DIRECTOR, WEATHERIZATION DIRECTOR-C Other Provider Active Start : July 24, 2024 Virginia LOPEZ PA Other Provider Active Start: July 24, [...] Team Status: Inactive Member Role Status Dates Ashlynphylicia Gates PA, PA Primary Care Provider Active Start: August 07, 2024 End: August 07, 2024 Ashlynphylicia Gates PA, PA Referring Provider Active Start: [...] August 15, 2024 End: August 15, 2024 Health And Safety Representative Relationship Specialty Start Date End Date Ashlyn Gates PA-C [address] [place] [address] PCP - General Internal Medicine 09/03/24 Health And Safety Representative Relationship Specialty Start Date End Date Ashlyn Gates PA-C [address] [place] [address] PCP - General Internal Medicine 09/03/24 Health And Safety Representative Relationship Specialty Start Date End Date [place] Ashlyn Ortiz PA-C [address] [place] [address] PCP - General Internal Medicine 09/03/24 Team Status: Active Member Role/Relationship Status Dates JOHN Gutierrez Primary care physician Active Team Status: Inactive Member Role/Relationship Status Dates JOHN Gutierrez Primary care physician Active Start: January 24, 2025 End: January 24, 2025 JOHN Gutierrez Attending physician Active Start: January 24, 2025 End: January 24, 2025 JOHN Gutierrez Referring Provider Active Start: January 24, 2025 End: January 24, 2025 <item> Privacy Markings (unrecogniz ed section and [...] BE BASED ON THE PRIMARY CLINICAL RECORDS. [employer] [facility]. provides no warranty or guarantee of the accuracy or completeness of information in this document.
--- OUTSIDE RECORDS SUMMARY | 2025-02-19 20:02 | XMS RPT_ITS | CCD ---
Author Organization [facility] Care Team Providers Care Shear Setter Name Role Phone Ree Christopher Admitting Unavailable [...] Unavailable YAJAIRA, ASHLYN B Primary Care Unavailable Portlilo, Nirali D Admitting Unavailable Portillo, Nirali D [...] Christopher Unavailable Unavailable Yajaira, Ashlyn Unavailable Unavailable Tuttle, Ashlyn B Unavailable Unavailable Yajaira, Ashlyn B Unavailable Unavailable Zumbar, Christopher Unavailable Unavailable Tuttle, Ashlyn Unavailable Unavailable Yajaira, Ashlyn B Unavailable Unavailable Ashlyn Gates Primary Care Provider Ashlyn Soto Primary Care Provider Ashlyn Gates Unavailable [phone] Unavailable Unavailable Ashlyn Soto Primary Care Provider [phone] Ashlyn Gates Unavailable Kb Meyer Unavailable Unavailable [...] Soto Referring Provider JOHN Watt Attending Provider [phone] Yajaira MASON, Ashlyn Ortiz Primary Care Provider Yajaira LOPEZ Ashlyn Primary Care Provider [phone] Yajaira, Ms. [facility] Unav ailable ZChristopher morrison Attending Unavailable Yajaira, Ms. [facility] Unav ailable Kamenik, Ms. Quiles Carmen Attending Faithvai labpetr Meyer, Kb Morales Referring Unavai lable Tuttle, Ms. [facility] Care Unav ailable Kamxochiltk, Kb Morales Attending Unavai labpetr Gates, Ms. [facility] Unav ailable ZChristopher morrison Attending Unavailable Yajaira, Ms[facility] Unav ailable Christopher Keenan Attending Unavailable Ashlyn Soto Primary Care Provider Ashlyn Gates PA-C Primary Care Provider Miguelina Ramos CMA Unavailable Unavailable [facility] UnavailHEATHER Spencer Attending Unavailable [facility] Care Unavailable FABI GIRALDO Referring Unavailable FABI GIRALDO Attending Unavailable SELF, SELF Referring Unavailable [facility] Care Unavailable FABI GIRALDO Attending Unavailable [place]TE FARAH Referring Unavailable [facility] Care Unavailable FABI GIRALDO Attending Unavailable [place] FARAH Referring Unavailable [facility] Care Unavailable FABI GIRALDO Attending [facility] FABI GIRALDO Attending Unavailable FABI GIRALDO Referring Unavailable [facility] Primary Care Unavailable FABI GIRALDO Referring Unavailable [...] America GORDON, Dr. Murphy Other Provider Carrillo FILE SYSTEM INSTALLER-C, Heather Lebron Other Provider Virginia Herman Other Provider [facility] Other Provider Dr. Nirmala Arenas DO Attending Provider Dr. Nirmala Arenas DO Other Provider Dr. Jose Ramon Castro DO Attending Provider Dr. Jose Ramon Castro DO Emergency Provider Betty GORDON, Dr. Barrow Referring Provider Bijan GORDON, Dr. Locke Attending Provider [phone] DESIREE SIN Referring Unavailable YAJAIRA, ASHLYN B Primary Care Unavailable Tuttle PAEulaliaC, Ashlyn B Primary Care Provider YAJAIRA, ASHLYN B Attending Unavailable YAJAIRA, ASHLYN [...] Unavailable YAJAIRA, ASHLYN B Primary Care Unavailable Yajiara PA, Ashlyn Primary Care Physician [phone] Ashlyn Soto Attending Physician Yajaira LOPEZ, Ashlyn [...] Ashlyn Soto Referring Unavailabl e Yajaira LOPEZ, [facility] Unavailabl e Yajaira LOPEZ, [facility] Unavailabl e Joselin Craig Attending Unavailzonia e Yajaira LOPEZ, [facility] Care Unavailzonia e Wilfrid Hernandez Admitting Unavailable Wilfrid Hernandez Consulting Unavailable Nirmala Arenas Attending Unavailable Amro, Ahmed Consulting Unavailable Mostafa, Josef Consulting Unavailable Willi, Marcelino Consulting Unavailable Braswell, Emir Consulting Unavailable Haily, Lan Consulting Unavailable Belal, Farouk Consulting Unavailable Danial Hernández Consulting Unavailable Nagajothi, Nagapradee Consulting Unavailabl e Satti, Chucky Consulting Unavailable America, Jeffrey Consulting Unavailable Carrillo FILE SYSTEM INSTALLER, Heather Lebron Consulting Unavailable Virginia Herman Consulting Unavail able [facility] Consulting Unavailable Marlin Sidhu Consulting Unavailable Nirmala Arenas Consulting Unavailable Yajaira LOPEZ, Ashlyn Attending Unavailabl e Yajaira LOPEZ, Ashlyn Referring Unavailabl e Yajaira LOPEZ, [facility] Care UnavailDanial Rojas Referring Unavailable Danial Hernández Attending Unavailable Yajaira LOPEZ, [facility] Care Unavailabl e Yajaira LOPEZ, [facility] Care Unavailzonia e Wilfrid Hernandez Consulting Unavailable Wilfrid Hernandez Admitting Unavailable Nirmala Arenas Attending Unavailable Amro, Ahmed Consulting Unavailable Mostafa, Josef Consulting Unavailable Willi, Marcelino Consulting Unavailable Ofe Braswellndan Consulting Unavailable Haily, Dryden Consulting Unavailable Belal, Farouk Consulting Unavailable Danial Hernández Consulting Unavailable Williacorinne, Nagapradee Consulting Unavailabl e Satti, Chucky Consulting Unavailable Amreica, Jeffrey Consulting Unavailable Carrillo FILE SYSTEM INSTALLER, Heather Lebron Consulting Unavailable Virginia Herman Consulting Unavail able [facility] Consulting Unavailable Marlin Sidhu Consulting Unavailable Senthil Caban V Referring Unavailable Yajaira LOPEZ, [facility] Unavailabl e Senthil Caban V Attending Unavailable Danial Hernández Attending Unavailable Yajaira LOPEZ, [facility] Care Unavailabl e Yajaira LOPEZ, [facility] Care UnavailJose Ramon Newton Attending Unavailable Yajaira LOPEZ, [facility] Unavailabl e Yajaira LOPEZAshlyn Attending Ashlyn Talley Referring Danial Ewing Attending Unavailable Wilfrid Hernandez Attending Danial Alcantara Attending Unavailable Allergies Allergy Classification Reported Allergen(s) Allergy Type Date of Onset Reaction(s) Facility NSAIDs (7 sources) Diclofenac; Translations: [diclofenac] Drug Allergy 08-06-2020 [facility] (20 sources) Diclofenac; Translations: [diclofenac] Drug Allergy 08-06-2020 Rash, Unknown [facility] Repository Medications Current Medications Medication Drug Class(es) Dates Sig (Normalized) Sig (Original) [id number] 200 actuat albuterol 0.09 mg/actuat metered dose [...] Start: 03-25-2021 take 1 capsule by [facility] once daily Qsymia 7.5-46 MG Oral Capsule Extended Release 24 Hour TAKE 1 CAPSULE Daily Quantity: 0 Refills: 0 Ordered: 25-Mar-2021 DO Start : 25-Mar-[address] FABI GIRALDO [facility] (WEIGHT LOSS) Start: 03-11-2021 End: 04-30-2021 take [...] Auto (Unsp spec) [#/Vol] 2.26 10*3/uL 0.83-4.51 [facility] Absolute neutrophil countOrd ered By: Ashlyn Gates on 01-24-2025 Neutrophils (Bld) [#/Vol] 6.2 10*3/uL 2.0-7.7 [facility] Anion gap in Serum or Plasma Ordered By: Ashlyn Gates on 01-24-2025 Anion gap [Moles/Vol] 11 mmol/L 5-15 [facility] Automated lymphocyte count a s percentage of total leukocytesOrdered By: Ashlyn Gates on 01-24-2025 Lymphocytes/100 WBC Auto (Unsp spec) 24.5 % 19-41 [facility] BUN/creatinine ratioOrdered By: Ashlyn Gates on 01-24-2025 Urea nitrogen/Creatinine [Mass ratio] 13.2 mg/mg 10-20 [facility] Basophil percentageOrdered B y: Ashlyn Gates on 01-24-2025 Basophils/100 WBC (Bld) 0.5 % 0-1 [facility] Bilirubin, totalOrdered By: Ashlyn Gates on 01-24-2025 Bilirubin [Mass/Vol] 0.25 mg/dL Normal 0.00-1.30 [facility] Comment on above: Performed By: #### L 501.5425, L100.0100, L500.2500 #### [facility] [address] [place], [address] CBC W/Diff, Automatedon 12-28 Absolute Lymph 2.26 X10 3/uL Normal 0.83-4.51 [facility] Comment on above: Performed By: #### L 501.5425, L100.0100, L500.2500 #### [facility] [address] [place], [address] Absolute Neut 6.2 X10 3/uL Normal 2.0-7.7 [facility] Comment on above: Performed By: #### L 501.5425, L100.0100, L500.2500 #### [facility] [address] [place], [address] Basophils/100 WBC (Bld) 0.5 % Normal 0-1 [facility] Comment on above: Performed By: #### L 501.5425, L100.0100, L500.2500 #### [facility] [address] [place], [address] Eosinophils/100 WBC (Bld) 2.8 % Normal 0-5 [facility] Comment on above: Performed By: #### L 501.5425, L100.0100, L500.2500 #### [facility] [address] [place], [address] Erythrocyte distribution width (RBC) [Ratio] 13.7 % Normal 11.6-14.6 [facility] Comment on above: Performed By: #### L 501.5425, L100.0100, L500.2500 #### [facility] [address] [place], [address] Hematocrit (Bld) [Volume fraction] 37.4 % Normal 37-47 [facility] Comment on above: Performed By: #### L 501.5425, L100.0100, L500.2500 #### [facility] [address] [place], [address] Hemoglobin (Bld) [Mass/Vol] 12.3 g/dL Normal 12.0-15.0 [facility] Comment on above: Performed By: #### L 501.5425, L100.0100, L500.2500 #### [facility] [address] [place], [address] IG% 0.200 Normal 0.0-0.9 [facility] Comment on above: Result Comment: IG% - Immature Granulocytes (promyelocytes, myelocytes and metamyelocytes) > 1% indicates that a LEFT SHIFT is Present. Performed By: #### L 501.5425, L100.0100, L500.2500 #### [facility] [address] [place], [address] Lymphocytes/100 WBC (Bld) 24.5 % Normal 19-41 [facility] Comment on above: Performed By: #### L 501.5425, L100.0100, L500.2500 #### [facility] [address] [place], [address] MCH (RBC) [Entitic mass] 26.3 pg Low 27.0-32.0 [facility] Comment on above: Performed By: #### L 501.5425, L100.0100, L500.2500 #### [facility] [address] [place], [address] MCHC (RBC) [Mass/Vol] 32.9 g/dL Normal 32-36 [facility] Comment on above: Performed By: #### L 501.5425, L100.0100, L500.2500 #### [facility] [address] [place], [address] MCV (RBC) [Entitic vol] 80.1 fL Low 81-99 [facility] Comment on above: Performed By: #### L 501.5425, L100.0100, L500.2500 #### [facility] [address] [place], [address] Monocytes/100 WBC (Bld) 5.3 % Normal 0-10 [facility] Comment on above: Performed By: #### L 501.5425, L100.0100, L500.2500 #### [facility] [address] [place], [address] Neutrophils/100 WBC (Bld) 66.7 % Normal 47-70 [facility] Comment on above: Performed By: #### L 501.5425, L100.0100, L500.2500 #### [facility] [address] [place], [address] Nucleated RBC (Bld) [#/Vol] 0 10*3/uL Normal 0-5 [facility] Comment on above: Performed By: #### L 501.5425, L100.0100, L500.2500 #### [facility] [address] [place], [address] Platelet mean volume (Bld) [Entitic vol] 11.4 fL Normal 6.2-12.0 [facility] Comment on above: Performed By: #### L 501.5425, L100.0100, L500.2500 #### [facility] [address] [place], [address] Platelets (Bld) [#/Vol] 321 10*3/uL Normal 150-450 [facility] Comment on above: Performed By: #### L 501.5425, L100.0100, L500.2500 #### [facility] [address] [place], [address] RBC (Bld) [#/Vol] 4.67 10*6/uL Normal 4.2-5.4 [facility] Comment on above: Performed By: #### L 501.5425, L100.0100, L500.2500 #### [facility] [address] [place], [address] RDW SD 39.4 fl Normal 35.1-43.9 [facility] Comment on above: Performed By: #### L 501.5425, L100.0100, L500.2500 #### [facility] [address] [place], [address] WBC (Bld) [#/Vol] 9.2 10*3/uL Normal 4.4-11.0 [facility] Comment on above: Performed By: #### L 501.5425, L100.0100, L500.2500 #### [facility] [address] [place], [address] Calculated very low density lipoprotein (VLDL) cholesterol measurementOrdered By: Ashlyn Gates on 01-24-2025 Calculated very low density lipoprotein (VLDL) cholesterol measurement 32 mg/dL 5-40 [facility] Carbon dioxide, total [Moles /volume] in Central venous bloodOrdered By: Ashlyn Gates on 01-24-2025 CO2 [Moles/Vol] 23.5 mmol/L Normal 21.0-32.0 [facility] Comment on above: Performed By: #### L 501.5425, L100.0100, L500.2500 #### [facility] [address] [place], [address] Chloride assayOrdered By: Ra aroldo Gates on 01-24-2025 Chloride [Moles/Vol] 104 mmol/L Normal 98-108 [facility] Comment on above: Performed By: #### L 501.5425, L100.0100, L500.2500 #### [facility] [address] [place], [address] Comprehensive Metabolic Prof ilon 01-24-2025 ALK PHOS 94 U/L Normal 35-104 [facility] Comment on above: Performed By: #### L 501.5425, L100.0100, L500.2500 #### [facility] [address] [place], [address] BUN/CRE 13.2 RATIO Normal 10-20 [facility] Comment on above: Performed By: #### L 501.5425, L100.0100, L500.2500 #### [facility] [address] [place], [address] GAP 11 Normal 5-15 [facility] Comment on above: Performed By: #### L 501.5425, L100.0100, L500.2500 #### [facility] [address] [place], [address] Potassium [Moles/Vol] 4.3 mmol/L Normal 3.3-5.1 [facility] Comment on above: Performed By: #### L 501.5425, L100.0100, L500.2500 #### [facility] [address] [place], [address] T PROT 6.9 g/dL Normal 5.9-8.4 [facility] Comment on above: Performed By: #### L 501.5425, L100.0100, L500.2500 #### [facility] [address] [place], [address] Comprehensive Metabolic Prof ilOrdered By: Ashlyn Gates on 01-24-2025 AST [Catalytic activity/Vol] 13 U/L Normal <=31 [facility] Comment on above: Performed By: #### L 501.5425, L100.0100, L500.2500 #### [facility] [address] [place], [address] Eosinophil percentageOrdered By: Ashlyn Gates on 01-24-2025 Eosinophils/100 WBC (Bld) 2.8 % 0-5 [facility] Erythrocyte distribution wid th ratioOrdered By: Ashlynphylicia Gates on 01-24-2025 Erythrocyte distribution width (RBC) [Ratio] 13.7 % 11.6-14.6 [facility] Erythrocyte distribution wid th standard deviationOrdered By: Ashlynphylicia Gates on 01-24-2025 Erythrocyte distribution width (RBC) [Ratio] 39.4 fl 35.1-43.9 [facility] Glomerular filtration rate ( GFR) estimation/1.73 sq m using serum, plasma, or whole bOrdered By: Ashlynphylicia Gates on 01-24-2025 GFR/1.73 sq M.predicted among non-blacks MDRD (S/P/Bld) [Vol rate/Area] 124 mL/min/{1.73_m2} Normal >60 [facility] Comment on above: mL/min/1.73m2 CKD-EP I Creatinine Equation (2020) Result Comment: mL/m in/1.73m2 CKD-EPI Creatinine Equation (2020) Performed By: #### L 501.5425, L100.0100, L500.2500 #### [facility] [address] [place], [place], [address] Hematocrit Auto (Bld) [Volum e fraction]Ordered By: Ashlyn Gates on 01-24-2025 Hematocrit (Bld) [Volume fraction] 37.4 % 37-47 [facility] Hemoglobin A1con 01-24-2025 HbA1c (Bld) [Mass fraction] 5.5 % Normal <=5.6 [facility] Comment on above: Result Comment: Norm al < 5.7 % Prediabetic 5.7 - 6.4 % Diabetic >or= 6.5 % Please note range changes. Performed By: #### L 501.5425, L100.0100, L500.2500 #### [facility] [address] [place], [address] Hemoglobin A1c percentageOrd ered By: Ashlyn Gates on 01-24-2025 HbA1c (Bld) [Mass fraction] 5.5 % <5.7 [facility] Comment on above: Normal < 5.7 % Predi abetic 5.7 - 6.4 % Diabetic >or= 6.5 % Please note range changes. Hemoglobin measurementOrdere d By: Ashlyn Gates on 01-24-2025 Hemoglobin (Bld) [Mass/Vol] 12.3 g/dL 12.0-15.0 [facility] Immature granulocytes/100 WB C Auto (Bld)Ordered By: Ashlyn Gates on 01-24-2025 Immature granulocytes/100 WBC (Bld) 0.200 % 0.0-0.9 [facility] Comment on above: IG% - Immature Granu locytes (promyelocytes, myelocytes and metamyelocytes) > 1% indicates that a LEFT SHIFT is Present. Iron measurement (mass/mass) Ordered By: Ashlyn Gates on 01-24-2025 Iron (Unsp spec) [Mass/Mass] 55 ug/dL 50-170 [facility] Iron+Iron Binding Capacityon 01-24-2025 Iron [Mass/Vol] 55 ug/dL Normal 50-170 [facility] Comment on above: Performed By: #### L 501.5425, L100.0100, L500.2500 #### [facility] [address] [place], [address] IRON SATURATION 15.0 Normal 13-59 [facility] Comment on above: Performed By: #### L 501.5425, L100.0100, L500.2500 #### [facility] [address] [place], [address] TIBC 377 ug/dL Normal 250-450 [facility] Comment on above: Performed By: #### L 501.5425, L100.0100, L500.2500 #### [facility] [address] [place], [address] UIBC 322 ug/dL Normal 228-428 [facility] Comment on above: Performed By: #### L 501.5425, L100.0100, L500.2500 #### [facility] [address] [place], [address] LDL calc ser/plasOrdered By: Ashlyn Gates on 01-24-2025 Cholesterol in LDL [Mass/Vol] 143 mg/dL [facility] Comment on above: Zgbawofcwz=984-586 m g/dL & Higher Qpvm=565 mg/dL or greaterFriedwald Equation for LDL-C Lipid Profileon 01-24-2025 CHOL:HDL 4.84 Normal [facility] Comment on above: Performed By: #### L 501.5425, L100.0100, L500.2500 #### [facility] [address] [place], [address] Cholesterol [Mass/Vol] 221 mg/dL High <=200 [facility] Comment on above: Result Comment: Chol esterol level, Desirable <200 mg/dL Borderline high cholesterol 200-239 mg/dL High cholesterol >=240 mg/dL Recommendations of the NCEP Adult Treatment Panel for the following risk-cutoff thresholds for the [place] population. Performed By: #### L 501.5425, L100.0100, L500.2500 #### [facility] [address] [place], [address] Cholesterol in HDL [Mass/Vol] 46 mg/dL Normal [facility] Comment on above: Result Comment: Susi onal Cholesterol Education Program (NCEP) guidelines: <40 mg/dL: Low HDL-cholesterol (major risk factor for CHD) >= 60 mg/dL: High HDL-cholesterol (negative risk factor for CHD) HDL-cholesterol is affected by a number of factors, e.g. smoking, exercise, hormones, sex and age. Performed By: #### L 501.5425, L100.0100, L500.2500 #### [facility] [address] [place], [address] Cholesterol in LDL [Mass/Vol] 143 mg/dL Normal [facility] Comment on above: Result Comment: Bord opvdcy=324-788 mg/dL Higher Amse=271 mg/dL or greater Friedwald Equation for LDL-C Performed By: #### L 501.5425, L100.0100, L500.2500 #### [facility] [address] [place], [address] Cholesterol in VLDL [Mass/Vol] 32 mg/dL Normal 5-40 [facility] Comment on above: Performed By: #### L 501.5425, L100.0100, L500.2500 #### [facility] [address] [place], [address] Triglyceride [Mass/Vol] 161 mg/dL Normal [facility] Comment on above: Result Comment: The drugs N-Acetylcysteine and Metamizole may falsely depress this assay. Normal range: <150 mg/dL Borderline High: 150-199 mg/dL High: 200-499 mg/dL Very High: >500 mg/dL Performed By: #### L 501.5425, L100.0100, L500.2500 #### [facility] [address] [place], [address] MCV (mean corpuscular volume ) determinationOrdered By: Ashlyn Gates on 01-24-2025 MCV (RBC) [Entitic vol] 80.1 fL Low 81-99 [facility] Magnesiumon 01-24-2025 Magnesium [Mass/Vol] 1.9 mg/dL Normal 1.5-2.2 [facility] Comment on above: Performed By: #### L 501.5425, L100.0100, L500.2500 #### [facility] [address] [place], [address] Magnesium measurement (mass/ volume)Ordered By: Ashlyn Gates on 01-24-2025 Magnesium (Unsp spec) [Mass/Vol] 1.9 mg/dL 1.5-2.2 [facility] Mean corpuscular hemoglobin (MCH) determinationOrdered By: Ashlyn Gates on 01-24-2025 MCH (RBC) [Entitic mass] 26.3 pg Low 27.0-32.0 [facility] Mean corpuscular hemoglobin concentration (MCHC) determinationOrdered By: Ashlyn Gates on 01-24-2025 MCHC (RBC) [Mass/Vol] 32.9 g/dL 32-36 [facility] Mean platelet volume determi nationOrdered By: Ashlyn Gates on 01-24-2025 Platelet mean volume (Bld) [Entitic vol] 11.4 fL 6.2-12.0 [facility] Monocyte percentageOrdered B y: Ashlyn Gates on 01-24-2025 Monocytes/100 WBC (Bld) 5.3 % 0-10 [facility] Neutrophil percentageOrdered By: Ashlyn Gates on 01-24-2025 Neutrophils/100 WBC (Bld) 66.7 % 47-70 [facility] No Panel InformationOrdered By: Ashlyn Gates on 01-24-2025 Unsaturated Iron Binding Capacity 322 ug/dL 228-428 [facility] Nucleated red blood cell per centageOrdered By: Ashlyn Gates on 01-24-2025 Nucleated RBC/100 WBC (Bld) [Ratio] 0 % 0-5 [facility] Platelet countOrdered By: Ra aroldo Gates on 01-24-2025 Platelets (Bld) [#/Vol] 321 10*3/uL 150-450 [facility] Potassium measurement (mass/ volume)Ordered By: Ashlyn Gates on 01-24-2025 Potassium (Unsp spec) [Mass/Vol] 4.3 mmol/L 3.3-5.1 [facility] RBC Auto (Bld) [#/Vol]Ordere d By: Ashlyn Gates on 01-24-2025 RBC (Bld) [#/Vol] 4.67 10*6/uL 4.2-5.4 [facility] Screening total cholesterol/ high density lipoprotein (HDL) cholesterol ratioOrdered By: Ashlyn Gates on 01-24-2025 Cholesterol.total/Carmel sterol in HDL [Mass ratio] 4.84 {ratio} [facility] Serum creatinine measurement (mass/volume)Ordered By: Ashlyn Gates on 01-24-2025 Creatinine [Mass/Vol] 0.62 mg/dL Low 0.70-1.20 [facility] Comment on above: Performed By: #### L 501.5425, L100.0100, L500.2500 #### [facility] [address] [place], [address] Serum globulin measurementOr dered By: Ashlyn Gates on 01-24-2025 Globulin (S) [Mass/Vol] 3.2 g/dL Normal 2.2-4.2 [facility] Comment on above: Performed By: #### L 501.5425, L100.0100, L500.2500 #### [facility] [address] [place], [place], [address] Serum glucose measurement (m ass/volume)Ordered By: Ashlyn Gates on 01-24-2025 Glucose [Mass/Vol] 138 mg/dL High 70-99 [facility] Comment on above: Performed By: #### L 501.5425, L100.0100, L500.2500 #### [facility] [address] [place], [address] Serum or plasma alanine rodriguez otransferase (ALT) measurementOrdered By: Ashlyn Gates on 01-24-2025 ALT [Catalytic activity/Vol] 13 U/L Normal <=34 [facility] Comment on above: Performed By: #### L 501.5425, L100.0100, L500.2500 #### [facility] [address] [place], [address] Serum or plasma albumin sarina urement (mass/volume)Ordered By: Ashlyn Gates on 01-24-2025 Albumin [Mass/Vol] 3.8 g/dL Normal 3.5-5.0 [facility] Comment on above: Performed By: #### L 501.5425, L100.0100, L500.2500 #### [facility] [address] [place], [address] Serum or plasma albumin/glob ulin mass ratioOrdered By: Ashlyn Gates on 01-24-2025 Albumin/Globulin [Mass ratio] 1.2 {ratio} Normal 0.9-2.4 [facility] Comment on above: Performed By: #### L 501.5425, L100.0100, L500.2500 #### [facility] [address] [place], [address] Serum or plasma alkaline amyco sphatase measurementOrdered By: Aslhyn Gates on 01-24-2025 ALP [Catalytic activity/Vol] 94 U/L 35-104 [facility] Serum or plasma calcium sarina urement (mass/volume)Ordered By: Ashyln Gates on 01-24-2025 Calcium [Mass/Vol] 8.9 mg/dL Normal 7.6-11.0 [facility] Comment on above: Performed By: #### L 501.5425, L100.0100, L500.2500 #### [facility] [address] [facility] [place], [address] Serum or plasma cholesterol in HDL measurement (mass/volume)Ordered By: Ashlyn Gates on 01-24-2025 Cholesterol in HDL [Mass/Vol] 46 mg/dL >40 [facility] Comment on above: National Cholesterol Education Program (NCEP) guidelines:<40 mg/dL: Low HDL-cholesterol (major risk factor for CHD)>= 60 mg/dL: High HDL-cholesterol (negative risk factor for CHD)HDL-cholesterol is affected by a number of factors, e.g. smoking, exercise, hormones, sex and age. Serum or plasma cholesterol measurement (mass/volume)Ordered By: Ashlyn Gates on 01-24-2025 Cholesterol [Mass/Vol] 221 mg/dL High <201 [facility] Comment on above: Cholesterol level, D esirable <200 mg/dLBorderline high cholesterol 200-239 mg/dLHigh cholesterol >=240 mg/dLRecommendations of the NCEP Adult Treatment Panel for the following risk-cutoff thresholds for the [place] population. Serum or plasma ferritin juvenal surement (mass/volume)Ordered By: Ashlyn Gates on 01-24-2025 Ferritin [Mass/Vol] 62 ng/mL Normal 22-378 [facility] Comment on above: Performed By: #### L 501.5425, L100.0100, L500.2500 #### [facility] [address] [place], [address] Serum or plasma iron saturat ion measurement (mass fraction)Ordered By: Ashlyn Gates on 01-24-2025 Iron saturation [Mass fraction] 15.0 % 13-59 [facility] Serum or plasma urea nitroge n measurement (mass/volume)Ordered By: Ashlyn Gates on 01-24-2025 Urea nitrogen [Mass/Vol] 8 mg/dL Normal 4-19 [facility] Comment on above: Performed By: #### L 501.5425, L100.0100, L500.2500 #### [facility] [address] [place], [address] Sodium levelOrdered By: Adrianna Gates on 01-24-2025 Sodium [Moles/Vol] 139 mmol/L Normal 133-145 [facility] Comment on above: Performed By: #### L 501.5425, L100.0100, L500.2500 #### [facility] [address] [place], [address] T4 Free Directon 01-24-2025 T4 FREE DIRECT 0.90 ng/dL Normal 0.76-1.46 [facility] Comment on above: Performed By: #### L 501.5425, L100.0100, L500.2500 #### [facility] [address] [place], [address] T4 freeOrdered By: Ashlyn flannery on 01-24-2025 Free T4 [Mass/Vol] 0.90 ng/dL 0.76-1.46 [facility] TSH DL <= 0.005 mIU/L QnOrde red By: Ashlyn Gates on 01-24-2025 TSH Qn 2.810 uIU/mL 0.300-4.200 [facility] Thyroid Stim Hormone (TSH)on 01-24-2025 TSH 2.810 uIU/mL Normal 0.300-4.200 [facility] Comment on above: Performed By: #### L 501.5425, L100.0100, L500.2500 #### [facility] [address] [place], [address] Total proteinOrdered By: Renetta Gates on 01-24-2025 Protein [Mass/Vol] 6.9 g/dL 5.9-8.4 [facility] Triglycerides measurementOrd ered By: Ashlyn Gates on 01-24-2025 Triglyceride [Mass/Vol] 161 mg/dL <199 [facility] Comment on above: The drugs N-Acetylcy steine and Metamizole may falsely depress this assay. Normal range: <150 mg/dLBorderline High: 150-199 mg/dLHigh: 200-499 mg/dLVery High: >500 mg/dL Vitamin B12 ser/plasOrdered By: Ashlyn Gates on 01-24-2025 Cobalamin (Vitamin B12) [Mass/Vol] 788 pg/mL Normal 180-914 [facility] Comment on above: Performed By: #### L 501.5425, L100.0100, L500.2500 #### [facility] [address] [place], [place], [address] White blood cell (WBC) count Ordered By: Ashlyn Gates on 01-24-2025 WBC (Bld) [#/Vol] 9.2 10*3/uL 4.4-11.0 [facility] Cardiology Visit Reporton Cardiology Visit Report [facility] [address] [place], [place] [address] OFFICE VISIT Date of Service: 09/23/24 MR#: [id number] Acct: [id number] Name: YEMI JC Rep #: [id number] : 1995 Provider: MOOKIE adams Age/Sex: 29/F Location[place] [facility] Status: Signed HPI HPI History of Present Illness Details: This is a 29-year-old female who presents today for cardiovascular follow-up visit. She was recently hospitalized with new onset atrial fibrillation. Patient presented to the emergency department July 23 with new onset atrial for with a heart rate of 160 bpm. She was placed on oral anticoagulation due to a SFU9LC2-PVUf score of 2. The patient is morbidly [...] Visit Reasons: 6 W FU/SEE NOTE FROM Airline Manager Required: No Is patient in pain?: No [...] for f (more content not included)... Normal [facility] 12 Lead EKG performed by [facility] on 08-15-2024 12 Lead EKG performed by [facility] [address] [place] [address] 12 Lead EKG performed by [facility] 08/15/24 0949 MR#: [id number] Acct: [id number] Name: YEMI JC Rep #: [id number] : 1995 29 From: Chucky Thakkar MD Attending Dr: Dr. Chucky Thakkar MD Status: D EP AMB Ordering Dr: Chucky Thakkar MD Date: 08/15/24 Location: [facility] Sex: F C Admitted: [facility] Lead EKG performed by [facility] ECG Report Interpretation --Sinus Rhythm - Negative precordial T-waves -Normal for age. PROBABLY NORMAL FOR AGEElectronically signed on 10/23/2024 at 13:[address] Marcelino Eraz[employer] Version [id number] 10/23/24 1317 Date Chucky Thakkar MD CC: JOHN Ramirez Date Dictated: 08/15/2449 Date Transcribed: 08/15/24948 Construction Technician: KOJO Signed Normal [facility] Cardiology Visit Reporton Cardiology Visit Report [facility] [address] [place] [address] OFFICE VISIT Date of Service: 08/15/24 MR#: [id number] Acct: [id number] Name: YEMI JC Rep #: [id number] : 1995 Provider: Dr. Chucky delgado MD Age/Sex: 29/F Location: [facility] Status: Signed with Addenda ADDENDUM by Dr. Chucky Thakkar MD on 09/12/24 at 1406 Addendum Addendum Details:: Diagnosis: New onset atrial fibrillation Assessment and Plan Assessment and Plan Orders: Orders 12 Lead EKG performed by [facility] 08/15/24 I48.91 - Unspecified atrial fibrillation, R00.0 [...] murmurs heard (more content not included)... Normal [facility] 12 Lead EKG performed by [facility] on 08-07-2024 12 Lead EKG performed by [facility] [address] [place] [address] 12 Lead EKG performed by [facility] 08/07/24 1316 MR#: [id number] Acct: [id number] Name: YEMI JC Rep #: [id number] : 1995 29 From: Danial Hernández MD Attending Dr: Dr. Danial Hernández MD Status: DE P AMB Ordering Dr: Danial Hernández MD Date: 08/07/24 Location: [facility] Sex: F C Admitted: BMS/12 Lead EKG performed by [facility] ECG Report Interpretation --Sinus Tachycardia - Nonspecific T-abnormality. ABNORMAL Electronically signed on 08/07/2024 at 14:[address] Danial Hernández [employer] Version [id number] 08/07/24 1432 Date Danial Hernández MD CC: JOHN Ramirez Date Dictated: 08/07/246 Date Transcribed: 08/07/241315 Construction Technician: Signed Normal [facility] Anion gap in Serum or Plasma Ordered By: Danial Hernández on 08-07-2024 Anion gap [Moles/Vol] 12 mmol/L 10-10 [facility] BUN/creatinine ratioOrdered By: Danial Hernández on 08-07-2024 Urea nitrogen/Creatinine [Mass ratio] 18.2 mg/mg - [facility] Basic Metabolic Profile (BMP )on 08-07-2024 BUN/CRE 18.2 RATIO Normal 03-17 [facility] Comment on above: Performed By: #### L 503.7505, L500.2500 #### [facility] [address] [place], [address] Calcium [Mass/Vol] 9.0 mg/dL Normal 7.6-11.0 [facility] Comment on above: Performed By: #### L 503.7505, L500.2500 #### [facility] [address] [place], [address] Chloride [Moles/Vol] 104 mmol/L Normal 98-108 [facility] Comment on above: Performed By: #### L 503.7505, L500.2500 #### [facility] [address] [place], [address] CO2 [Moles/Vol] 23.6 mmol/L Normal 21.0-32.0 [facility] Comment on above: Performed By: #### L 503.7505, L500.2500 #### [facility] [address] [place], [address] Creatinine [Mass/Vol] 0.71 mg/dL Normal 0.70-1.20 [facility] Comment on above: Performed By: #### L 503.7505, L500.2500 #### [facility] [address] [place], [address] GAP 12 Normal 5-15 [facility] Comment on above: Performed By: #### L 503.7505, L500.2500 #### [facility] [address] [place], [address] GFR/1.73 sq M.predicted among non-blacks MDRD (S/P/Bld) [Vol rate/Area] 119 mL/min/{1.73_m2} Normal >60 [facility] Comment on above: Result Comment: mL/m in/1.73m2 CKD-EPI Creatinine Equation (2020) Performed By: #### L 503.7505, L500.2500 #### [facility] [address] [place], [address] Glucose [Mass/Vol] 114 mg/dL High 70-99 [facility] Comment on above: Performed By: #### L 503.7505, L500.2500 #### [facility] [address] [place], [address] Potassium [Moles/Vol] 3.9 mmol/L Normal 3.3-5.1 [facility] Comment on above: Performed By: #### L 503.7505, L500.2500 #### [facility] [address] [place], [address] Sodium [Moles/Vol] 140 mmol/L Normal 133-145 [facility] Comment on above: Performed By: #### L 503.7505, L500.2500 #### [facility] [address] [place], [address] Urea nitrogen [Mass/Vol] 13 mg/dL Normal 4-19 [facility] Comment on above: Performed By: #### L 503.7505, L500.2500 #### [facility] [address] [place], [address] Carbon dioxide, total [Moles /volume] in Central venous bloodOrdered By: Danial Hernández on 08-07-2024 CO2 [Moles/Vol] 23.6 mmol/L 21.0-32.0 [facility] Chloride assayOrdered By: Paige Hernández on 08-07-2024 Chloride [Moles/Vol] 104 mmol/L 98-108 [facility] GFR/1.73 sq M.predicted marilou g non-blacks MDRD (S/P/Bld) [Vol rate/Area]Ordered By: Danial Hernández on 08-07-2024 Estimated GFR (MDRD) Non-Af Amer 119 >60 [facility] Comment on above: mL/min/1.73m2 CKD-EP I Creatinine Equation (2020) L503.7505on 08-07-2024 Natriuretic peptide B (Bld) [Mass/Vol] 799 pg/mL High <=450 [facility] Comment on above: Result Comment: Hear t Failure Unlikely: < 300 pg/mL Heart Failure Likely < 50 Years: > 450 pg/mL 50-75 Years: > 900 pg/mL >75 Years: > 1800 pg/mL Performed By: #### L 503.7505, L500.2500 #### [facility] [address] [place], [place], [address] Laboratory - Chemistry and C hemistry - challengeOrdered By: Danial Hernández on 08-07-2024 Natriuretic peptide B (Bld) [Mass/Vol] 799 pg/mL High <450 [facility] Comment on above: Heart Failure Unlike ly: < 300 pg/mLHeart Failure Likely< 50 Years: > 450 pg/mL50-75 Years: > 900 pg/mL>75 Years: > 1800 pg/mL Potassium (Unsp spec) [Mass/ Vol]Ordered By: Danial Hernández on 08-07-2024 Potassium [Moles/Vol] 3.9 mmol/L 3.3-5.1 [facility] Serum creatinine measurement (mass/volume)Ordered By: Danial Hernández on 08-07-2024 Creatinine [Mass/Vol] 0.71 mg/dL 0.70-1.20 [facility] Serum glucose measurement (m ass/volume)Ordered By: Danial Hernández on 08-07-2024 Glucose [Mass/Vol] 114 mg/dL High 70-99 [facility] Serum or plasma calcium sarina urement (mass/volume)Ordered By: Danial Hernández on 08-07-2024 Calcium [Mass/Vol] 9.0 mg/dL 7.6-11.0 [facility] Serum or plasma urea nitroge n measurement (mass/volume)Ordered By: Danial Hernández on 08-07-2024 Urea nitrogen [Mass/Vol] 13 mg/dL 4-19 [facility] Sodium levelOrdered By: Tae Hernández on 08-07-2024 Sodium [Moles/Vol] 140 mmol/L 133-145 [facility] 12 Lead EKG performed by [facility] [place] 08-02-2024 12 Lead EKG performed by [facility] [address] [place] [address] 12 Lead EKG performed by [facility] 08/02/24 1007 MR#: [id number] Acct: [id number] Name: YEMI JC Rep #: [id number] : 1995 29 From: Danial Hernández MD Attending Dr: Dr. Danial Hernández MD Status: DE P AMB Ordering Dr: Danial Hernández MD Date: 08/02/24 Location: [facility] Sex: F C Admitted: BMS/12 Lead EKG performed by [facility] ECG Report Interpretation --Atrial fibrillation ABNORMAL RHYTHMElectronically signed on 08/02/2024 at 09:[address] Danial Hernández [employer] Version [id number] 08/02/24 0944 Date Danial Hernández MD CC: JOHN Ramirez Date Dictated: 08/02/24 1007 Date Transcribed: 08/02/24 1007 Construction Technician: Signed Normal [facility] Cardiology Visit Reporton Cardiology Visit Report [facility] [place] [address] OFFICE VISIT Date of Service: 08/02/24 MR#: [id number] Acct: [id number] Name: YEMI JC Rep #: [id number] : 1995 Provider: Dr. Danial oswald MD Age/Sex: 29/F Location: [facility] Status: Signed with Addenda ADDENDUM by Dr. [...] placed on oral anticoagulation due to a KGW5CL3-PIWi score of 2. The patient is morbidly [...] Delivery Method room air Intake Visit Reasons: [facility] 07/24 AFIB Airline Manager Required: No Accompanied by: Mother Is patient [...] you fallen in the past year?: No [facility] Medical History (Update (more content not included)... Normal [facility] Absolute neutrophil countOrd ered By: Jose Ramon Castro on 08-01-2024 Neutrophils (Bld) [#/Vol] 7.2 10*3/uL 2.0-7.7 [facility] Anion gap in Serum or Plasma Ordered By: Jose Ramon Castro on 08-01-2024 Anion gap [Moles/Vol] 15 mmol/L 10-10 [facility] BUN/creatinine ratioOrdered By: Jose Ramon Castro on 08-01-2024 Urea nitrogen/Creatinine [Mass ratio] 19.1 mg/mg - [facility] Basic Metabolic Profile (BMP )on 08-01-2024 BUN/CRE 19.1 RATIO Normal - [facility] Comment on above: Performed By: #### L 501.5425, L100.0100, L500.2500 #### [facility] [address] [place], [address] Calcium [Mass/Vol] 9.0 mg/dL Normal 7.6-11.0 [facility] Comment on above: Performed By: #### L 501.5425, L100.0100, L500.2500 #### [facility] [address] [place], [address] Chloride [Moles/Vol] 104 mmol/L Normal 98-108 [facility] Comment on above: Performed By: #### L 501.5425, L100.0100, L500.2500 #### [facility] [address] [place], [address] CO2 [Moles/Vol] 20.6 mmol/L Low 21.0-32.0 [facility] Comment on above: Performed By: #### L 501.5425, L100.0100, L500.2500 #### [facility] [address] [place], [address] Creatinine [Mass/Vol] 0.79 mg/dL Normal 0.70-1.20 [facility] Comment on above: Performed By: #### L 501.5425, L100.0100, L500.2500 #### [facility] [address] [place], [address] ECRCL 109.34 ml/min Normal 50-250 [facility] Comment on above: Performed By: #### L 501.5425, L100.0100, L500.2500 #### [facility] [address] [place], [address] GAP 15 Normal 5-15 [facility] Comment on above: Performed By: #### L 501.5425, L100.0100, L500.2500 #### [facility] [address] [place], [address] GFR/1.73 sq M.predicted among non-blacks MDRD (S/P/Bld) [Vol rate/Area] 105 mL/min/{1.73_m2} Normal >60 [facility] Comment on above: Result Comment: mL/m in/1.73m2 CKD-EPI Creatinine Equation (2020) Performed By: #### L 501.5425, L100.0100, L500.2500 #### [facility] [address] [place], [address] Glucose [Mass/Vol] 109 mg/dL High 70-99 [facility] Comment on above: Performed By: #### L 501.5425, L100.0100, L500.2500 #### [facility] [address] [place], [address] Potassium [Moles/Vol] 4.3 mmol/L Normal 3.3-5.1 [facility] Comment on above: Performed By: #### L 501.5425, L100.0100, L500.2500 #### [facility] [address] [place], [address] Sodium [Moles/Vol] 140 mmol/L Normal 133-145 [facility] Comment on above: Performed By: #### L 501.5425, L100.0100, L500.2500 #### [facility] [address] [place], [address] Urea nitrogen [Mass/Vol] 15 mg/dL Normal 4-19 [facility] Comment on above: Performed By: #### L 501.5425, L100.0100, L500.2500 #### [facility] [address] [place], [address] Basophil percentageOrdered B y: Jose Ramon Castro on 08-01-2024 Basophils/100 WBC (Bld) 0.8 % 0-1 [facility] CBC W/Diff, Automatedon Absolute Lymph 3.61 X10 3/uL Normal 0.83-4.51 [facility] Comment on above: Performed By: #### L 501.5425, L100.0100, L500.2500 #### [facility] [address] [place], [address] Absolute Neut 7.2 X10 3/uL Normal 2.0-7.7 [facility] Comment on above: Performed By: #### L 501.5425, L100.0100, L500.2500 #### [facility] [address] [place], [address] Basophils/100 WBC (Bld) 0.8 % Normal 0-1 [facility] Comment on above: Performed By: #### L 501.5425, L100.0100, L500.2500 #### [facility] [address] [place], [address] Eosinophils/100 WBC (Bld) 2.3 % Normal 0-5 [facility] Comment on above: Performed By: #### L 501.5425, L100.0100, L500.2500 #### [facility] [address] [place], [address] Erythrocyte distribution width (RBC) [Ratio] 13.8 % Normal 11.6-14.6 [facility] Comment on above: Performed By: #### L 501.5425, L100.0100, L500.2500 #### [facility] [address] [place], [address] Hematocrit (Bld) [Volume fraction] 38.2 % Normal 37-47 [facility] Comment on above: Performed By: #### L 501.5425, L100.0100, L500.2500 #### [facility] [address] [place], [address] Hemoglobin (Bld) [Mass/Vol] 12.7 g/dL Normal 12.0-15.0 [facility] Comment on above: Performed By: #### L 501.5425, L100.0100, L500.2500 #### [facility] [address] [place], [address] IG% 0.400 Normal 0.0-0.9 [facility] Comment on above: Result Comment: IG% - Immature Granulocytes (promyelocytes, myelocytes and metamyelocytes) > 1% indicates that a LEFT SHIFT is Present. Performed By: #### L 501.5425, L100.0100, L500.2500 #### [facility] [address] [place], [address] Lymphocytes/100 WBC (Bld) 30.4 % Normal 19-41 [facility] Comment on above: Performed By: #### L 501.5425, L100.0100, L500.2500 #### [facility] [address] [place], [address] MCH (RBC) [Entitic mass] 26.6 pg Low 27.0-32.0 [facility] Comment on above: Performed By: #### L 501.5425, L100.0100, L500.2500 #### [facility] [address] [place], [address] MCHC (RBC) [Mass/Vol] 33.2 g/dL Normal 32-36 [facility] Comment on above: Performed By: #### L 501.5425, L100.0100, L500.2500 #### [facility] [address] [place], [address] MCV (RBC) [Entitic vol] 80.1 fL Low 81-99 [facility] Comment on above: Performed By: #### L 501.5425, L100.0100, L500.2500 #### [facility] [address] [place], [address] Monocytes/100 WBC (Bld) 5.2 % Normal 0-10 [facility] Comment on above: Performed By: #### L 501.5425, L100.0100, L500.2500 #### [facility] [address] [place], [address] Neutrophils/100 WBC (Bld) 60.9 % Normal 47-70 [facility] Comment on above: Performed By: #### L 501.5425, L100.0100, L500.2500 #### [facility] [address] [place], [address] Nucleated RBC (Bld) [#/Vol] 0 10*3/uL Normal 0-5 [facility] Comment on above: Performed By: #### L 501.5425, L100.0100, L500.2500 #### [facility] [address] [place], [address] Platelet mean volume (Bld) [Entitic vol] 11.8 fL Normal 6.2-12.0 [facility] Comment on above: Performed By: #### L 501.5425, L100.0100, L500.2500 #### [facility] [address] [place], [address] Platelets (Bld) [#/Vol] 381 10*3/uL Normal 150-450 [facility] Comment on above: Performed By: #### L 501.5425, L100.0100, L500.2500 #### [facility] [address] [place], [address] RBC (Bld) [#/Vol] 4.77 10*6/uL Normal 4.2-5.4 [facility] Comment on above: Performed By: #### L 501.5425, L100.0100, L500.2500 #### [facility] [address] [place], [address] RDW SD 40.1 fl Normal 35.1-43.9 [facility] Comment on above: Performed By: #### L 501.5425, L100.0100, L500.2500 #### [facility] [address] [place], [address] WBC (Bld) [#/Vol] 11.9 10*3/uL High 4.4-11.0 [facility] Comment on above: Performed By: #### L 501.5425, L100.0100, L500.2500 #### [facility] [address] [place], [address] Carbon dioxide, total [Moles /volume] in Central venous bloodOrdered By: Jose Ramon Castro on 08-01-2024 CO2 [Moles/Vol] 20.6 mmol/L Low 21.0-32.0 [facility] Chest 1 View (Portable)on Chest 1 View (Portable) [facility] Imaging Services [address] [place] [address] Chest 1 View (Portable) MR#: [id number] Acct: [id number] Name: YEMI JC Rep #: [id number] : 1995 F 29 From: Danial Barr i, MD PCP: JOHN Ramirez Status: REG ER Study: Chest 1 View (Portable) Date of Exam: 08/01/24 Exam# [id number] Ordering Dr: Jose Ramon Castro DO PROCEDURE: [...] Follow-up until resolution is recommended. Reading Location: [id number] CC: Dr. Jose Ramon Castro DO; JOHN Ramirez Construction Technician: Signed Normal [facility] Chloride assayOrdered By: Davis Castro on 08-01-2024 Chloride [Moles/Vol] 104 mmol/L 98-108 [facility] Emergency Department Summary on 08-01-2024 Emergency Department Summary [facility] Medical Records Department [address] [place] [address] Emergency Department Summary 08/01/24 MR#: [id number] Acct: [id number] Name: YEMI JC Rep #: [id number] [...] hospital. She is following with Dr. Hernández. [facility] Medical History Atrial fibrillation with rapid ventricular [...] bowel so (more content not included)... Normal [facility] Eosinophil percentageOrdered By: Jose Ramon Castro on 08-01-2024 Eosinophils/100 WBC (Bld) 2.3 % 0-5 [facility] Erythrocyte distribution wid th ratioOrdered By: Jose Ramon Castro on 08-01-2024 Erythrocyte distribution width (RBC) [Ratio] 13.8 % 11.6-14.6 [facility] Erythrocyte distribution wid th standard deviationOrdered By: Jose Ramon Castro on 08-01-2024 Erythrocyte distribution width (RBC) [Entitic vol] 40.1 fL 35.1-43.9 [facility] Estimation of creatinine jordan aranceOrdered By: Jose Ramon Castro on 08-01-2024 Estimated Creatinine Clearance Calc 109.34 ml/min 50-250 [facility] GFR/1.73 sq M.predicted marilou g non-blacks MDRD (S/P/Bld) [Vol rate/Area]Ordered By: Jose Ramon Castro on 08-01-2024 Estimated GFR (MDRD) Non-Af Amer 105 >60 [facility] Comment on above: mL/min/1.73m2 CKD-EP I Creatinine Equation (2020) Hematocrit Auto (Bld) [Volum e fraction]Ordered By: Jose Ramon Castro on 08-01-2024 Hematocrit (Bld) [Volume fraction] 38.2 % 37-47 [facility] Hemoglobin measurementOrdere d By: Jose Ramon Castro on 08-01-2024 Hemoglobin (Bld) [Mass/Vol] 12.7 g/dL 12.0-15.0 [facility] Immature granulocytes/100 WB C Auto (Bld)Ordered By: Jose Ramon Castro on 08-01-2024 Immature granulocytes/100 WBC (Bld) 0.400 % 0.0-0.9 [facility] Comment on above: IG% - Immature Granu locytes (promyelocytes, myelocytes and metamyelocytes) > 1% indicates that a LEFT SHIFT is Present. L501.4021on 08-01-2024 Trop T High Sen < 6 Normal <=14 [facility] Comment on above: Performed By: #### L 501.4021 #### [facility] [address] [place], [address] L503.7505on 08-01-2024 Natriuretic peptide B (Bld) [Mass/Vol] 1383 pg/mL High <=450 [facility] Comment on above: Result Comment: Hear t Failure Unlikely: < 300 pg/mL Heart Failure Likely < 50 Years: > 450 pg/mL 50-75 Years: > 900 pg/mL >75 Years: > 1800 pg/mL Performed By: #### L 501.5415, L100.0100, L500.2500 #### [facility] [address] [place], [address] Laboratory - Chemistry and C hemistry - challengeOrdered By: Jose Ramon Castro on 08-01-2024 Natriuretic peptide B (Bld) [Mass/Vol] 1383 pg/mL High <450 [facility] Comment on above: Heart Failure Unlike ly: < 300 pg/mLHeart Failure Likely< 50 Years: > 450 pg/mL50-75 Years: > 900 pg/mL>75 Years: > 1800 pg/mL Lymphocytes Auto (Unsp spec) [#/Vol]Ordered By: Jose Ramon Castro on 08-01-2024 Lymphocytes (Bld) [#/Vol] 3.61 10*3/uL 0.83-4.51 [facility] Lymphocytes/100 WBC Auto (Un sp spec)Ordered By: Jose Ramon Castro on 08-01-2024 Lymphocytes/100 WBC (Bld) 30.4 % 19-41 [facility] MCV (mean corpuscular volume ) determinationOrdered By: Jose Ramon Castro on 08-01-2024 MCV (RBC) [Entitic vol] 80.1 fL Low 81-99 [facility] Mean corpuscular hemoglobin (MCH) determinationOrdered By: Jose Ramon Castro on 08-01-2024 MCH (RBC) [Entitic mass] 26.6 pg Low 27.0-32.0 [facility] Mean corpuscular hemoglobin concentration (MCHC) determinationOrdered By: Jose Ramon Castro on 08-01-2024 MCHC (RBC) [Mass/Vol] 33.2 g/dL 32-36 [facility] Mean platelet volume determi nationOrdered By: Jose Ramon Castro on 08-01-2024 Platelet mean volume (Bld) [Entitic vol] 11.8 fL 6.2-12.0 [facility] Monocyte percentageOrdered B y: Jose Ramon Castro on 08-01-2024 Monocytes/100 WBC (Bld) 5.2 % 0-10 [facility] Neutrophil percentageOrdered By: Jose Ramon Castro on 08-01-2024 Neutrophils/100 WBC (Bld) 60.9 % 47-70 [facility] No Panel InformationOrdered By: Jose Ramon Castro on 08-01-2024 Troponin T High Sensitivity < 6 ng/L <14 [facility] Nucleated red blood cell per centageOrdered By: Jose Ramon Castro on 08-01-2024 Nucleated RBC/100 WBC (Bld) [Ratio] 0 % 0-5 [facility] Platelet countOrdered By: Davis Castro on 08-01-2024 Platelets (Bld) [#/Vol] 381 10*3/uL 150-450 [facility] Potassium (Unsp spec) [Mass/ Vol]Ordered By: Jose Ramon Castro on 08-01-2024 Potassium [Moles/Vol] 4.3 mmol/L 3.3-5.1 [facility] RBC Auto (Bld) [#/Vol]Ordere d By: Jose Ramon Castro on 08-01-2024 RBC (Bld) [#/Vol] 4.77 10*6/uL 4.2-5.4 [facility] Serum creatinine measurement (mass/volume)Ordered By: Jose Ramon Castro on 08-01-2024 Creatinine [Mass/Vol] 0.79 mg/dL 0.70-1.20 [facility] Serum glucose measurement (m ass/volume)Ordered By: Jose Ramon Castro on 08-01-2024 Glucose [Mass/Vol] 109 mg/dL High 70-99 [facility] Serum or plasma calcium sarina urement (mass/volume)Ordered By: Jose Ramon Castro on 08-01-2024 Calcium [Mass/Vol] 9.0 mg/dL 7.6-11.0 [facility] Serum or plasma urea nitroge n measurement (mass/volume)Ordered By: Jose Ramon Castro on 08-01-2024 Urea nitrogen [Mass/Vol] 15 mg/dL 4-19 [facility] Sodium levelOrdered By: Jordan Castro on 08-01-2024 Sodium [Moles/Vol] 140 mmol/L 133-145 [facility] White blood cell (WBC) count Ordered By: Jose Ramon Castro on 08-01-2024 WBC (Bld) [#/Vol] 11.9 10*3/uL High 4.4-11.0 [facility] Absolute neutrophil countOrd ered By: Marlin Sidhu on 07-24-2024 Neutrophils (Bld) [#/Vol] 14.0 10*3/uL High 2.0-7.7 [facility] BUN/creatinine ratioOrdered By: Marlin Sidhu on 07-24-2024 Urea nitrogen/Creatinine [Mass ratio] 12.3 mg/mg 10-20 [facility] Basic Metabolic Profile (BMP )on 07-24-2024 CO2 [Moles/Vol] 19.1 mmol/L Low 21.0-32.0 [facility] Comment on above: Performed By: #### L 501.2300, L500.2500 #### [facility] [address] [place], [address] GAP 13 Normal 5-15 [facility] Comment on above: Performed By: #### L 501.2300, L500.2500 #### [facility] [address] [place], [address] Calcium [Mass/Vol] 8.7 mg/dL Normal 7.6-11.0 [facility] Comment on above: Performed By: #### L 501.2300, L500.2500 #### [facility] [address] [place], [address] Chloride [Moles/Vol] 105 mmol/L Normal 98-107 [facility] Comment on above: Performed By: #### L 501.2300, L500.2500 #### [facility] [address] [place], [address] EST GFR - AA TNP Normal >60 [facility] Comment on above: Performed By: #### L 501.2300, L500.2500 #### [facility] [address] [place], [address] Potassium [Moles/Vol] 3.9 mmol/L Normal 3.5-5.1 [facility] Comment on above: Performed By: #### L 501.2300, L500.2500 #### [facility] [address] [place], [address] Sodium [Moles/Vol] 137 mmol/L Normal 136-145 [facility] Comment on above: Performed By: #### L 501.2300, L500.2500 #### [facility] [address] [place], [address] Basophil percentageOrdered B y: Marlin Sidhu on 07-24-2024 Basophils/100 WBC (Bld) 0.3 % 0-1 [facility] CBC W/Diff, Automatedon 06-30 Absolute Lymph 1.86 X10 3/uL Normal 0.83-4.51 [facility] Comment on above: Performed By: #### L 100.0100 #### [facility] [address] [place], [address] Absolute Neut 14.0 X10 3/uL High 2.0-7.7 [facility] Comment on above: Performed By: #### L 100.0100 #### [facility] [address] [place], [address] Basophils/100 WBC (Bld) 0.3 % Normal 0-1 [facility] Comment on above: Performed By: #### L 100.0100 #### [facility] [address] [place], [address] Eosinophils/100 WBC (Bld) 0.4 % Normal 0-5 [facility] Comment on above: Performed By: #### L 100.0100 #### [facility] [address] [place], [address] Erythrocyte distribution width (RBC) [Ratio] 14.1 % Normal 11.6-14.6 [facility] Comment on above: Performed By: #### L 100.0100 #### [facility] [address] [place], [address] Hematocrit (Bld) [Volume fraction] 36.5 % Low 37-47 [facility] Comment on above: Performed By: #### L 100.0100 #### [facility] [address] [place], [address] Hemoglobin (Bld) [Mass/Vol] 11.9 g/dL Low 12.0-15.0 [facility] Comment on above: Performed By: #### L 100.0100 #### [facility] [address] [place], [address] IG% 0.400 Normal 0.0-0.9 [facility] Comment on above: Result Comment: IG% - Immature Granulocytes (promyelocytes, myelocytes and metamyelocytes) > 1% indicates that a LEFT SHIFT is Present. Performed By: #### L 100.0100 #### [facility] [address] [place], [address] Lymphocytes/100 WBC (Bld) 11.1 % Low 19-41 [facility] Comment on above: Performed By: #### L 100.0100 #### [facility] [address] [place], [address] MCH (RBC) [Entitic mass] 26.2 pg Low 27.0-32.0 [facility] Comment on above: Performed By: #### L 100.0100 #### [facility] [address] [place], [address] MCHC (RBC) [Mass/Vol] 32.6 g/dL Normal 32-36 [facility] Comment on above: Performed By: #### L 100.0100 #### [facility] [address] [place], [address] MCV (RBC) [Entitic vol] 80.2 fL Low 81-99 [facility] Comment on above: Performed By: #### L 100.0100 #### [facility] [address] [place], [address] Monocytes/100 WBC (Bld) 4.1 % Normal 0-10 [facility] Comment on above: Performed By: #### L 100.0100 #### [facility] [address] [place], [address] Neutrophils/100 WBC (Bld) 83.7 % High 47-70 [facility] Comment on above: Performed By: #### L 100.0100 #### [facility] [address] [place], [address] Nucleated RBC (Bld) [#/Vol] 0 10*3/uL Normal 0-5 [facility] Comment on above: Performed By: #### L 100.0100 #### [facility] [address] [place], [address] Platelet mean volume (Bld) [Entitic vol] 11.2 fL Normal 6.2-12.0 [facility] Comment on above: Performed By: #### L 100.0100 #### [facility] [address] [place], [address] Platelets (Bld) [#/Vol] 296 10*3/uL Normal 150-450 [facility] Comment on above: Performed By: #### L 100.0100 #### [facility] [address] [place], [address] RBC (Bld) [#/Vol] 4.55 10*6/uL Normal 4.2-5.4 [facility] Comment on above: Performed By: #### L 100.0100 #### [facility] [address] [place], [address] RDW SD 40.9 fl Normal 35.1-43.9 [facility] Comment on above: Performed By: #### L 100.0100 #### [facility] [address] [place], [place], [address] WBC (Bld) [#/Vol] 16.7 10*3/uL High 4.4-11.0 [facility] Comment on above: Performed By: #### L 100.0100 #### [facility] [address] [place], [address] Creatinine [Moles/Vol]Ordere d By: Marlin Sidhu on 07-24-2024 Creatinine [Mass/Vol] 0.6 mg/dL 0.6-1.0 [facility] Eosinophil percentageOrdered By: Marlin Sidhu on 07-24-2024 Eosinophils/100 WBC (Bld) 0.4 % 0-5 [facility] Erythrocyte distribution wid th ratioOrdered By: Marlin Sidhu on 07-24-2024 Erythrocyte distribution width (RBC) [Ratio] 14.1 % 11.6-14.6 [facility] Erythrocyte distribution wid th standard deviationOrdered By: Marlin Sidhu on 07-24-2024 Erythrocyte distribution width (RBC) [Entitic vol] 40.9 fL 35.1-43.9 [facility] Estimated glomerular filtrat ion rate (GFR) AmericanOrdered By: Marlin Sidhu on 07-24-2024 Estimated GFR (MDRD) Amer TNP [facility] Comment on above: Test not performed Estimation of creatinine jordan aranceOrdered By: Marlin Sidhu on 07-24-2024 Estimated Creatinine Clearance Calc 226.81 ml/min [facility] GFR/1.73 sq M.predicted marilou g non-blacks MDRD (S/P/Bld) [Vol rate/Area]Ordered By: Marlin Sidhu on 07-24-2024 Estimated GFR (MDRD) Non-Af Amer 127 >60 [facility] Comment on above: mL/min/1.73m2 CKD-EP I Creatinine Equation (2020) Hematocrit Auto (Bld) [Volum e fraction]Ordered By: Marlin Sidhu on 07-24-2024 Hematocrit (Bld) [Volume fraction] 36.5 % Low 37-47 [facility] Hemoglobin measurementOrdere d By: Marlin Sidhu on 07-24-2024 Hemoglobin (Bld) [Mass/Vol] 11.9 g/dL Low 12.0-15.0 [facility] Immature granulocytes/100 WB C Auto (Bld)Ordered By: Marlin Sidhu on 07-24-2024 Immature granulocytes/100 WBC (Bld) 0.400 % 0.0-0.9 [facility] Comment on above: IG% - Immature Granu locytes (promyelocytes, myelocytes and metamyelocytes) > 1% indicates that a LEFT SHIFT is Present. Lymphocytes Auto (Unsp spec) [#/Vol]Ordered By: Marlin Sidhu on 07-24-2024 Lymphocytes (Bld) [#/Vol] 1.86 10*3/uL 0.83-4.51 [facility] Lymphocytes/100 WBC Auto (Un sp spec)Ordered By: Marlin Sidhu on 07-24-2024 Lymphocytes/100 WBC (Bld) 11.1 % Low 19-41 [facility] MCV (mean corpuscular volume ) determinationOrdered By: Marlin Sidhu on 07-24-2024 MCV (RBC) [Entitic vol] 80.2 fL Low 81-99 [facility] Mean corpuscular hemoglobin (MCH) determinationOrdered By: Marlin Sidhu on 07-24-2024 MCH (RBC) [Entitic mass] 26.2 pg Low 27.0-32.0 [facility] Mean corpuscular hemoglobin concentration (MCHC) determinationOrdered By: Marlin Sidhu on 07-24-2024 MCHC (RBC) [Mass/Vol] 32.6 g/dL 32-36 [facility] Mean platelet volume determi nationOrdered By: Marlin Sidhu on 07-24-2024 Platelet mean volume (Bld) [Entitic vol] 11.2 fL 6.2-12.0 [facility] Monocyte percentageOrdered B y: Marlin Sidhu on 07-24-2024 Monocytes/100 WBC (Bld) 4.1 % 0-10 [facility] Neutrophil percentageOrdered By: Marlin Sidhu on 07-24-2024 Neutrophils/100 WBC (Bld) 83.7 % High 47-70 [facility] Nucleated red blood cell per centageOrdered By: Marlin Sidhu on 07-24-2024 Nucleated RBC/100 WBC (Bld) [Ratio] 0 % 0-5 [facility] Phosphoruson 07-24-2024 Phosphate [Mass/Vol] 3.2 mg/dL Normal 2.7-4.5 [facility] Comment on above: Performed By: #### L 501.2300, L500.2500 #### [facility] [address] [place], [address] Platelet countOrdered By: John Sidhu on 07-24-2024 Platelets (Bld) [#/Vol] 296 10*3/uL 150-450 [facility] Potassium measurementOrdered By: Marlin Sidhu on 07-24-2024 Potassium [Moles/Vol] 3.9 mmol/L 3.5-5.1 [facility] RBC Auto (Bld) [#/Vol]Ordere d By: Marlin Sidhu on 07-24-2024 RBC (Bld) [#/Vol] 4.55 10*6/uL 4.2-5.4 [facility] Serum anion gap measurementO rdered By: Marlin Sidhu on 07-24-2024 Anion gap [Moles/Vol] 13 mmol/L 5-15 [facility] Serum glucose measurement (m ass/volume)Ordered By: Marlin Sidhu on 07-24-2024 Glucose [Mass/Vol] 113 mg/dL High 70-99 [facility] Serum or plasma calcium sarina urement (mass/volume)Ordered By: Marlin Sidhu on 07-24-2024 Calcium [Mass/Vol] 8.7 mg/dL 7.6-11.0 [facility] Serum or plasma carbon dioxi de measurement (moles/volume)Ordered By: Marlin Sidhu on 07-24-2024 CO2 [Moles/Vol] 19.1 mmol/L Low 21.0-32.0 [facility] Serum or plasma chloride juvenal surement (moles/volume)Ordered By: Marlin Sidhu on 07-24-2024 Chloride [Moles/Vol] 105 mmol/L 98-107 [facility] Serum or plasma urea nitroge n measurement (mass/volume)Ordered By: Marlin Sidhu on 07-24-2024 Urea nitrogen [Mass/Vol] 7 mg/dL 4-19 [facility] Serum phosphorus measurement Ordered By: Wilfrid Canada on 07-24-2024 Phosphorus Level 3.2 mg/dL 2.7-4.5 [facility] Sodium levelOrdered By: Eli Sidhu on 07-24-2024 Sodium [Moles/Vol] 137 mmol/L 136-145 [facility] White blood cell (WBC) count Ordered By: Marlin Sidhu on 07-24-2024 WBC (Bld) [#/Vol] 16.7 10*3/uL High 4.4-11.0 [facility] Albumin to globulin ratioOrd ered By: Wilfrid Canada on 07-23-2024 Albumin/Globulin [Mass ratio] 0.6 {ratio} Low 0.9-2.4 [facility] Bilirubin, totalOrdered By: Wilfrid Canada on 07-23-2024 Bilirubin [Mass/Vol] 0.30 mg/dL 0.20-1.00 [facility] Comment on above: For patients on eltr ombopag therapy, use of Dimension [place] TBIL is not recommended. CBC W/Diff, Automatedon 06-30 Absolute Lymph 3.31 X10 3/uL Normal 0.83-4.51 [facility] Comment on above: Performed By: #### L 100.0100 #### [facility] [address] [place], [address] Absolute Neut 8.0 X10 3/uL High 2.0-7.7 [facility] Comment on above: Performed By: #### L 100.0100 #### [facility] [address] [place], [address] Basophils/100 WBC (Bld) 0.4 % Normal 0-1 [facility] Comment on above: Performed By: #### L 100.0100 #### [facility] [address] [place], [address] Eosinophils/100 WBC (Bld) 1.0 % Normal 0-5 [facility] Comment on above: Performed By: #### L 100.0100 #### [facility] [address] [place], [address] Erythrocyte distribution width (RBC) [Ratio] 14.0 % Normal 11.6-14.6 [facility] Comment on above: Performed By: #### L 100.0100 #### [facility] [address] [place], [address] Hematocrit (Bld) [Volume fraction] 36.2 % Low 37-47 [facility] Comment on above: Performed By: #### L 100.0100 #### [facility] [address] [place], [address] Hemoglobin (Bld) [Mass/Vol] 11.8 g/dL Low 12.0-15.0 [facility] Comment on above: Performed By: #### L 100.0100 #### [facility] [address] [place], [address] IG% 0.300 Normal 0.0-0.9 [facility] Comment on above: Result Comment: IG% - Immature Granulocytes (promyelocytes, myelocytes and metamyelocytes) > 1% indicates that a LEFT SHIFT is Present. Performed By: #### L 100.0100 #### [facility] [address] [place], [address] Lymphocytes/100 WBC (Bld) 27.5 % Normal 19-41 [facility] Comment on above: Performed By: #### L 100.0100 #### [facility] [address] [place], [address] MCH (RBC) [Entitic mass] 26.1 pg Low 27.0-32.0 [facility] Comment on above: Performed By: #### L 100.0100 #### [facility] [address] [place], [address] MCHC (RBC) [Mass/Vol] 32.6 g/dL Normal 32-36 [facility] Comment on above: Performed By: #### L 100.0100 #### [facility] [address] [place], [address] MCV (RBC) [Entitic vol] 80.1 fL Low 81-99 [facility] Comment on above: Performed By: #### L 100.0100 #### [facility] [address] [place], [address] Monocytes/100 WBC (Bld) 4.4 % Normal 0-10 [facility] Comment on above: Performed By: #### L 100.0100 #### [facility] [address] [place], [address] Neutrophils/100 WBC (Bld) 66.4 % Normal 47-70 [facility] Comment on above: Performed By: #### L 100.0100 #### [facility] [address] [place], [address] Nucleated RBC (Bld) [#/Vol] 0 10*3/uL Normal 0-5 [facility] Comment on above: Performed By: #### L 100.0100 #### [facility] Laboratory [address] [place], [address] Platelet mean volume (Bld) [Entitic vol] 11.3 fL Normal 6.2-12.0 [facility] Comment on above: Performed By: #### L 100.0100 #### [facility] [address] [place], [address] Platelets (Bld) [#/Vol] 284 10*3/uL Normal 150-450 [facility] Comment on above: Performed By: #### L 100.0100 #### [facility] [address] [place], [address] RBC (Bld) [#/Vol] 4.52 10*6/uL Normal 4.2-5.4 [facility] Comment on above: Performed By: #### L 100.0100 #### [facility] Laboratory [address] [place], [address] RDW SD 40.6 fl Normal 35.1-43.9 [facility] Comment on above: Performed By: #### L 100.0100 #### [facility] Laboratory [address] [place], [address] WBC (Bld) [#/Vol] 12.1 10*3/uL High 4.4-11.0 [facility] Comment on above: Performed By: #### L 100.0100 #### [facility] [address] [place], [address] Comprehensive Metabolic Prof ilon 07-23-2024 Albumin [Mass/Vol] 2.6 g/dL Low 3.2-5.0 [facility] Comment on above: Order Comment: Comme nts: SPECIMEN #3'TROP' Serial specimen #1, #2 or #3: 3 Performed By: #### L 100.0100 #### [facility] [address] [place], [address] Albumin/Globulin [Mass ratio] 0.6 {ratio} Low 0.9-2.4 [facility] Comment on above: Order Comment: Comme nts: SPECIMEN #3'TROP' Serial specimen #1, #2 or #3: 3 Performed By: #### L 100.0100 #### [facility] [address] [place], [address] ALK P 83 U/L Normal 45-117 [facility] Comment on above: Order Comment: Comme nts: SPECIMEN #3'TROP' Serial specimen #1, #2 or #3: 3 Performed By: #### L 100.0100 #### [facility] [address] [place], [address] ALT [Catalytic activity/Vol] 17 U/L Normal 13-56 [facility] Comment on above: Order Comment: Comme nts: SPECIMEN #3'TROP' Serial specimen #1, #2 or #3: 3 Performed By: #### L 100.0100 #### [facility] [address] [place], [address] AST [Catalytic activity/Vol] 8 U/L Low 15-37 [facility] Comment on above: Order Comment: Comme nts: SPECIMEN #3'TROP' Serial specimen #1, #2 or #3: 3 Performed By: #### L 100.0100 #### [facility] [address] [place], [address] Bilirubin [Mass/Vol] 0.30 mg/dL Normal 0.20-1.00 [facility] Comment on above: Order Comment: Comme nts: SPECIMEN #3'TROP' Serial specimen #1, #2 or #3: 3 Result Comment: For patients on eltrombopag therapy, use of Dimension [place] TBIL is not recommended. Performed By: #### L 100.0100 #### [facility] [address] [place], [address] BUN/CRE 13.6 RATIO Normal 10-20 [facility] Comment on above: Order Comment: Comme nts: SPECIMEN #3'TROP' Serial specimen #1, #2 or #3: 3 Performed By: #### L 100.0100 #### [facility] [address] [place], [address] CA,Total 8.2 mg/dL Low 8.5-10.1 [facility] Comment on above: Order Comment: Comme nts: SPECIMEN #3'TROP' Serial specimen #1, #2 or #3: 3 Performed By: #### L 100.0100 #### [facility] [address] [place], [address] Chloride [Moles/Vol] 108 mmol/L High 98-107 [facility] Comment on above: Order Comment: Comme nts: SPECIMEN #3'TROP' Serial specimen #1, #2 or #3: 3 Performed By: #### L 100.0100 #### [facility] [address] [place], [address] CO2 [Moles/Vol] 24.0 mmol/L Normal 21.0-32.0 [facility] Comment on above: Order Comment: Comme nts: SPECIMEN #3'TROP' Serial specimen #1, #2 or #3: 3 Performed By: #### L 100.0100 #### [facility] [address] [place], [address] Creatinine [Mass/Vol] 0.52 mg/dL Low 0.55-1.02 [facility] Comment on above: Order Comment: Comme nts: SPECIMEN #3'TROP' Serial specimen #1, #2 or #3: 3 Result Comment: The validity of the calculated GFR GFRAA in patients over 70 years has not been determined. Clinical correlation is essential. Performed By: #### L 100.0100 #### [facility] [address] [place], [address] ECRCL 261.29 ml/min Normal [facility] Comment on above: Order Comment: Comme nts: SPECIMEN #3'TROP' Serial specimen #1, #2 or #3: 3 Performed By: #### L 100.0100 #### [facility] [address] [place], [address] EST GFR - AA 182 mL/min Normal >60 [facility] Comment on above: Order Comment: Comme nts: SPECIMEN #3'TROP' Serial specimen #1, #2 or #3: 3 Result Comment: Afri can [place] GFR Calc Performed By: #### L 100.0100 #### [facility] [address] [place], [address] GAP 7 Normal 5-15 [facility] Comment on above: Order Comment: Comme nts: SPECIMEN #3'TROP' Serial specimen #1, #2 or #3: 3 Performed By: #### L 100.0100 #### [facility] [address] [place], [address] GFR/1.73 sq M.predicted among non-blacks MDRD (S/P/Bld) [Vol rate/Area] 150 mL/min/{1.73_m2} Normal >60 [facility] Comment on above: Order Comment: Comme nts: SPECIMEN #3'TROP' Serial specimen #1, #2 or #3: 3 Result Comment: Non- GFR Calc Performed By: #### L 100.0100 #### [facility] [address] [place], [address] Globulin (S) [Mass/Vol] 4.1 g/dL Normal 2.2-4.2 [facility] Comment on above: Order Comment: Comme nts: SPECIMEN #3'TROP' Serial specimen #1, #2 or #3: 3 Performed By: #### L 100.0100 #### [facility] [address] [place], [address] Glucose [Mass/Vol] 102 mg/dL Normal 74-106 [facility] Comment on above: Order Comment: Comme nts: SPECIMEN #3'TROP' Serial specimen #1, #2 or #3: 3 Result Comment: Fast ing Glucose result from 100 to 125 mg/dL suggests IMPAIRED HOMEOSTASIS per A.D.A. criteria. Performed By: #### L 100.0100 #### [facility] [address] [place], [address] Potassium [Moles/Vol] 3.6 mmol/L Normal 3.5-5.1 [facility] Comment on above: Order Comment: Comme nts: SPECIMEN #3'TROP' Serial specimen #1, #2 or #3: 3 Performed By: #### L 100.0100 #### [facility] [address] [place], [address] Sodium [Moles/Vol] 138 mmol/L Normal 136-145 [facility] Comment on above: Order Comment: Comme nts: SPECIMEN #3'TROP' Serial specimen #1, #2 or #3: 3 Performed By: #### L 100.0100 #### [facility] [address] [place], [address] T PROT 6.7 g/dL Normal 6.4-8.2 [facility] Comment on above: Order Comment: Comme nts: SPECIMEN #3'TROP' Serial specimen #1, #2 or #3: 3 Performed By: #### L 100.0100 #### [facility] [address] [place], [address] Urea nitrogen [Mass/Vol] 7 mg/dL Normal 7-18 [facility] Comment on above: Order Comment: Comme nts: SPECIMEN #3'TROP' Serial specimen #1, #2 or #3: 3 Performed By: #### L 100.0100 #### [facility] [address] [place], [address] Consultation - Cardiologyon 07-23-2024 Consultation - Cardiology [facility] Medical Records Department [address] [place] [address] [place] [address] Consultation - Cardiology 07/23/24 0734 MR#: [id number] Acct: [id number] Name: YEMI JC Rep #: [id number] : 1995 29 From: Danial Hernández MD PCP: JOHN Ramirez Status:ADM JIMMIE Location: [place] [address] Assessment Plan Assessment/Plan (1) Atrial fibrillation with [...] from Lovenox to oral Eliquis as her [id number] or of 2 would relegate her to [...] Eliquis for oral anticoagulation therapy given her [id number] score of 2. 2. I will continue [...] not recently by her report. The patient's [id number] score is 2 based on her age hypertension and female gender. [facility] Medical History Acute bronchitis, unspecified Influenza A Home Medications ???Medication ???Instructions ???Recorded ???Last Taken ???Type buspirone 30 mg tabl (more content not included)... Normal [facility] L501.4020on 07-23-2024 TROPONIN-I HS 5 pg/mL Normal 3.0-54.0 [facility] Comment on above: Order Comment: Comme nts: SPECIMEN #3'TROP' Serial specimen #1, #2 or #3: 3 Result Comment: Plekatrina acosta Note: New Test Units and Gender Specific Reference Ranges. For more information see Policy Stat Procedure [place] High Sensitivity Troponin (TNIH) and attachments. Performed By: #### L 100.0100 #### [facility] [address] [place], [address] TROPONIN-I HS 4 pg/mL Normal 3.0-54.0 [facility] Comment on above: Order Comment: Comme nts: SPECIMEN #2'TROP' Serial specimen #1, #2 or #3: 2 Result Comment: Plea se Note: New Test Units and Gender Specific Reference Ranges. For more information see Policy Stat Procedure [place] High Sensitivity Troponin (TNIH) and attachments. Performed By: #### L 100.0100 #### [facility] [address] [place], [place], [address] TROPONIN-I HS 5 pg/mL Normal 3.0-54.0 [facility] Comment on above: Order Comment: 'TROP ' Serial specimen #1, #2 or #3: 1 Result Comment: Plea se Note: New Test Units and Gender Specific Reference Ranges. For more information see Policy Stat Procedure [place] High Sensitivity Troponin (TNIH) and attachments. Performed By: #### L 100.0100 #### [facility] [address] [facility] [place], [place], [address] Laboratory - Chemistry and C hemistry - challengeOrdered By: Wilfrid Canada on 07-23-2024 AST [Catalytic activity/Vol] 8 U/L Low 15-37 [facility] Phosphoruson 07-23-2024 Phosphate [Mass/Vol] 3.1 mg/dL Normal 2.5-4.9 [facility] Comment on above: Order Comment: Comme nts: SPECIMEN #3'TROP' Serial specimen #1, #2 or #3: 3 Performed By: #### L 100.0100 #### [facility] [address] [facility] [place], [place], [address] Serum globulin measurementOr dered By: Wilfrid Canada on 07-23-2024 Globulin (S) [Mass/Vol] 4.1 g/dL 2.2-4.2 [facility] Serum or plasma alanine rodriguez otransferase (ALT) measurementOrdered By: Wilfrid Canada on 07-23-2024 ALT [Catalytic activity/Vol] 17 U/L 13-56 [facility] Serum or plasma albumin sarina urement (mass/volume)Ordered By: Wilfrid Canada on 07-23-2024 Albumin [Mass/Vol] 2.6 g/dL Low 3.2-5.0 [facility] Serum or plasma alkaline mayco sphatase measurementOrdered By: Wilfrid Canada on 07-23-2024 ALP [Catalytic activity/Vol] 83 U/L 45-117 [facility] Total proteinOrdered By: Marlo Canada on 07-23-2024 Protein [Mass/Vol] 6.7 g/dL 6.4-8.2 [facility] Troponin IOrdered By: Wilfrid Canada on 07-23-2024 Troponin I High Sensitivity 5 pg/mL 3.0-54.0 [facility] Comment on above: Please Note: [place]ella t Units and Gender Specific Reference Ranges. For more information see Policy Stat Procedure [place] High Sensitivity Troponin (TNIH) and attachments. 12 Lead EKGon 07-22-2024 12 Lead EKG [facility] Cardiovascular Services [address] [place] [address] 12 Lead EKG 07/22/24 1731 MR#: [id number] Acct: [id number] Name: YEMI JC Rep #: [id number] : 1995 29 From: Danial Hernández MD Attending Dr: Dr. Nirmala Arenas DO Status: ADM I N Ordering Dr: Eric Figueroa DO Date: 07/22/24 Location: [facility] Sex: F C Admitted: 07/23/24 Test Reason [...] abnormality Abnormal ECG Confirmed by Danial Hernández ([id number]), editor newspaper JUAN PABLO CARLSON ([id number]) on 07/24/2024 8:03:56 AM Referred By: Confirmed By: Danial Hernández 07/24/24 0804 Date Danial Hernández MD CC: Dr. Nirmala Arenas DO; Dr. Eric Figueroa, DO; JOHN Ramirez Signed Normal [facility] Basic Metabolic Profile (BMP )on 07-22-2024 BUN/CRE 15.3 RATIO Normal 10-20 [facility] Comment on above: Performed By: #### L 501.5425, L100.0100, L500.2500 #### [facility] Laboratory [address] [place], [address] CA,Total 9.3 mg/dL Normal 8.5-10.1 [facility] Comment on above: Performed By: #### L 501.5425, L100.0100, L500.2500 #### [facility] Laboratory [address] [place], [address] Chloride [Moles/Vol] 106 mmol/L Normal 98-107 [facility] Comment on above: Performed By: #### L 501.5425, L100.0100, L500.2500 #### [facility] [address] [place], [address] CO2 [Moles/Vol] 23.0 mmol/L Normal 21.0-32.0 [facility] Comment on above: Performed By: #### L 501.5425, L100.0100, L500.2500 #### [facility] [address] [place], [address] Creatinine [Mass/Vol] 0.72 mg/dL Normal 0.55-1.02 [facility] Comment on above: Result Comment: The validity of the calculated GFR GFRAA in patients over 70 years has not been determined. Clinical correlation is essential. Performed By: #### L 501.5425, L100.0100, L500.2500 #### [facility] [address] [place], [address] ECRCL 188.93 ml/min Normal [facility] Comment on above: Performed By: #### L 501.5425, L100.0100, L500.2500 #### [facility] [address] [place], [address] EST GFR - AA 124 mL/min Normal >60 [facility] Comment on above: Result Comment: Afri can [place] GFR Calc Performed By: #### L 501.5425, L100.0100, L500.2500 #### [facility] [address] [place], [address] GAP 8 Normal 5-15 [facility] Comment on above: Performed By: #### L 501.5425, L100.0100, L500.2500 #### [facility] Laboratory [address] [place], [address] GFR/1.73 sq M.predicted among non-blacks MDRD (S/P/Bld) [Vol rate/Area] 102 mL/min/{1.73_m2} Normal >60 [facility] Comment on above: Result Comment: Non- GFR Calc Performed By: #### L 501.5425, L100.0100, L500.2500 #### [facility] [address] [place], [address] Glucose [Mass/Vol] 89 mg/dL Normal 74-106 [facility] Comment on above: Performed By: #### L 501.5425, L100.0100, L500.2500 #### [facility] [address] [place], [address] Potassium [Moles/Vol] 3.9 mmol/L Normal 3.5-5.1 [facility] Comment on above: Performed By: #### L 501.5425, L100.0100, L500.2500 #### [facility] [address] [place], [address] Sodium [Moles/Vol] 137 mmol/L Normal 136-145 [facility] Comment on above: Performed By: #### L 501.5425, L100.0100, L500.2500 #### [facility] [address] [place], [address] Urea nitrogen [Mass/Vol] 11 mg/dL Normal 7-18 [facility] Comment on above: Performed By: #### L 501.5425, L100.0100, L500.2500 #### [facility] [address] [place], [address] Beta HCG ( test) Ql Ordered By: Eric Fiugeroa on 07-22-2024 Serum Test, Qualitative Negative [facility] CBC W/Diff, Automatedon 06-30 Absolute Lymph 4.31 X10 3/uL Normal 0.83-4.51 [facility] Comment on above: Performed By: #### L 501.5425, L100.0100, L500.2500 #### [facility] [address] [place], [address] Absolute Neut 6.7 X10 3/uL Normal 2.0-7.7 [facility] Comment on above: Performed By: #### L 501.5425, L100.0100, L500.2500 #### [facility] [address] [place], [address] Basophils/100 WBC (Bld) 0.6 % Normal 0-1 [facility] Comment on above: Performed By: #### L 501.5425, L100.0100, L500.2500 #### [facility] [address] [place], [address] Eosinophils/100 WBC (Bld) 1.9 % Normal 0-5 [facility] Comment on above: Performed By: #### L 501.5425, L100.0100, L500.2500 #### [facility] [address] [place], [address] Erythrocyte distribution width (RBC) [Ratio] 13.9 % Normal 11.6-14.6 [facility] Comment on above: Performed By: #### L 501.5425, L100.0100, L500.2500 #### [facility] [address] [place], [address] Hematocrit (Bld) [Volume fraction] 41.1 % Normal 37-47 [facility] Comment on above: Performed By: #### L 501.5425, L100.0100, L500.2500 #### [facility] [address] [place], [address] Hemoglobin (Bld) [Mass/Vol] 13.5 g/dL Normal 12.0-15.0 [facility] Comment on above: Performed By: #### L 501.5425, L100.0100, L500.2500 #### [facility] [address] [place], [address] IG% 0.300 Normal 0.0-0.9 [facility] Comment on above: Result Comment: IG% - Immature Granulocytes (promyelocytes, myelocytes and metamyelocytes) > 1% indicates that a LEFT SHIFT is Present. Performed By: #### L 501.5425, L100.0100, L500.2500 #### [facility] [address] [place], [address] Lymphocytes/100 WBC (Bld) 35.9 % Normal 19-41 [facility] Comment on above: Performed By: #### L 501.5425, L100.0100, L500.2500 #### [facility] [address] [place], [address] MCH (RBC) [Entitic mass] 26.3 pg Low 27.0-32.0 [facility] Comment on above: Performed By: #### L 501.5425, L100.0100, L500.2500 #### [facility] Laboratory [address] [place], [address] MCHC (RBC) [Mass/Vol] 32.8 g/dL Normal 32-36 [facility] Comment on above: Performed By: #### L 501.5425, L100.0100, L500.2500 #### [facility] [address] [place], [address] MCV (RBC) [Entitic vol] 80.1 fL Low 81-99 [facility] Comment on above: Performed By: #### L 501.5425, L100.0100, L500.2500 #### [facility] [address] [place], [address] Monocytes/100 WBC (Bld) 5.6 % Normal 0-10 [facility] Comment on above: Performed By: #### L 501.5425, L100.0100, L500.2500 #### [facility] [address] [place], [address] Neutrophils/100 WBC (Bld) 55.7 % Normal 47-70 [facility] Comment on above: Performed By: #### L 501.5425, L100.0100, L500.2500 #### [facility] [address] [place], [address] Nucleated RBC (Bld) [#/Vol] 0 10*3/uL Normal 0-5 [facility] Comment on above: Performed By: #### L 501.5425, L100.0100, L500.2500 #### [facility] [address] [place], [address] Platelet mean volume (Bld) [Entitic vol] 11.5 fL Normal 6.2-12.0 [facility] Comment on above: Performed By: #### L 501.5425, L100.0100, L500.2500 #### [facility] [address] [place], [address] Platelets (Bld) [#/Vol] 382 10*3/uL Normal 150-450 [facility] Comment on above: Performed By: #### L 501.5425, L100.0100, L500.2500 #### [facility] [address] [place], [address] RBC (Bld) [#/Vol] 5.13 10*6/uL Normal 4.2-5.4 [facility] Comment on above: Performed By: #### L 501.5425, L100.0100, L500.2500 #### [facility] [address] [place], [address] RDW SD 40.4 fl Normal 35.1-43.9 [facility] Comment on above: Performed By: #### L 501.5425, L100.0100, L500.2500 #### [facility] [address] [place], [address] WBC (Bld) [#/Vol] 12.0 10*3/uL High 4.4-11.0 [facility] Comment on above: Performed By: #### L 501.5425, L100.0100, L500.2500 #### [facility] [address] [place], [address] CTA Chest W/WO Contraston CTA Chest W/WO Contrast [facility] Imaging Services [address] [place] [address] CTA Chest W/WO Contrast MR#: [id number] Acct: [id number] Name: YEMI JC Rep #: [id number] : 1995 F 29 From: Deacon Sandoval i DO PCP: JOHN Ramirez Status: [facility] ER Study: CTA Chest W/WO Contrast Date of Exam: 07/22/24 Exam# [id number] Ordering Dr: Eric Figueroa DO PROCEDURE: CT [...] use of iterative reconstruction technique). Reading [facility] CC: Dr. Eric Figueroa DO; JOHN Ramirez Construction Technician: Signed Normal [facility] Chest 1 View (Portable)on Chest 1 View (Portable) [facility] Imaging Services [address] [place] [address] Chest 1 View (Portable) MR#: [id number] Acct: [id number] Name: YEMI JC Rep #: [id number] : 1995 F 29 From: Deacon Sandoval i, DO PCP: JOHN Ramirez Status: REG ER Study: Chest 1 View (Portable) Date of Exam: 07/22/24 Exam# [id number] Ordering Dr: Eric Figueroa DO PROCEDURE: Portable [...] CT evaluation may be considered. [facility]: Dr. Eric Figueroa DO; JOHN Ramirez Construction Technician: Signed Normal [facility] Direct serum free thyroxine (FT4) measurementOrdered By: Eric Figueroa on 07-22-2024 Free T4 [Mass/Vol] 0.97 ng/dL 0.76-1.46 [facility] Echo Complete W/ Contraston 07-22-2024 Echo Complete W/ Contrast [facility] [address] [place] [address] Echo Complete W/ Contrast 07/23/24 0819 MR#: [id number] Acct: [id number] Name: YEMI JC Rep #: [id number] [...] Date Dictated: 07/23/24 08 Date Transcribed: 07/23/241347 Construction Technician: Signed Normal [facility] Emergency Department Summary on 07-22-2024 Emergency Department Summary [facility] Medical Records Department [address] [place] [id number] Emergency Department Summary 07/22/24 MR#: [id number] Acct: [id number] Name: YEMI JC Rep #: [id number] [...] to a concert over the weekend to [place] and then recently again to [place]. Patient denies any history of blood clots. [facility] Medical History Acute bronchitis, unspecified Influenza A [...] following commands knew that she was at [facility] year is 2024 Skin: Warm, dry, [...] Delivery Metho (more content not included)... Normal [facility] Free T3on 07-22-2024 Free T3 [Mass/Vol] 3.1 pg/mL Normal 2.18-3.98 [facility] Comment on above: Performed By: #### L 501.4021 #### [facility] [place], [address] Free W1Roeuhsd By: Eric delacruz on 07-22-2024 Free Triiodothyronine (T3) pg/dL 3.1 pg/mL 2.18-3.98 [facility] H AND P Exam - Hospitaliston 07-22-2024 H&P Exam - Hospitalist [facility] Medical Records Department [address] [place] [address] H P Exam - Hospitalist 07/22/242027 MR#: [id number] Acct: [id number] Name: YEMI JC Rep #: [id number] : 1995 29 From: Wilfrid Hernandez DO PCP: JOHN Ramirez Status:ADM JIMMIE Location: [place] [address] HPI - General General Date of Admission: [...] and GERD; on omeprazole who presents to [facility] ER complaining of palpitations, heart racing and [...] to a concert over the weekend to [place] followed by another concert in [place], [place] but she denies being on OCP's [...] is expected to extend beyond 2 midnights. [facility] Medical History Acute bronchitis, unspecified Influenza [...] 98 Oxyg (more content not included)... Normal [facility] L501.4020on 07-22-2024 TROPONIN-I HS 5 pg/mL Normal 3.0-54.0 [facility] Comment on above: Result Comment: Plea se Note: New Test Units and Gender Specific Reference Ranges. For more information see Policy Stat Procedure [place] High Sensitivity Troponin (TNIH) and attachments. Performed By: #### L 501.4020 #### [facility] [address] [facility] [place], [address] L501.5425on 07-22-2024 TROPONIN-I HS 7 pg/mL Normal 3.0-54.0 [facility] Comment on above: Order Comment: 1 Y Result Comment: Plea se Note: New Test Units and Gender Specific Reference Ranges. For more information see Policy Stat Procedure [place] High Sensitivity Troponin (TNIH) and attachments. Performed By: #### L 501.5455, L100.0100, L500.2500 #### [facility] [address] [facility] [place], [address] Magnesiumon 07-22-2024 Magnesium [Mass/Vol] 1.9 mg/dL Normal 1.6-2.6 [facility] Comment on above: Performed By: #### L 100.0100 #### [facility] [address] [place], [address] Magnesium measurementOrdered By: Wilfrid Canada on 07-22-2024 Magnesium [Mass/Vol] 1.9 mg/dL 1.6-2.6 [facility] Methadone, urineOrdered By: Eric Figueroa on 07-22-2024 Urine Methadone Screen Negative < 300 ng/mL [facility] No Panel InformationOrdered By: Eric Figueroa on 07-22-2024 Urine Drug Screen Comment [facility] Comment on above: CONFIRMATORY TESTING FOR ALL [...] Quali.on 07-22-2024 HCG, SERUM QUAL Negative Normal [facility] Comment on above: Performed By: #### L 501.4021 #### [facility] [address] [place], [address] Quantitative urine opiates m easurementOrdered By: Eric Figueroa on 07-22-2024 Opiates Ql (U) Negative < 300 ng/mL [facility] T4 Free Directon 07-22-2024 T4 FREE DIRECT 0.97 ng/dL Normal 0.76-1.46 [facility] Comment on above: Performed By: #### L 501.4021 #### [facility] [address] [place], [place], [id number] TSH QnOrdered By: Eric ward on 07-22-2024 Thyroid Stimulating Hormone (TSH) 3.100 uIU/mL 0.358-3.740 [facility] Thyroid Stim Hormone (TSH)on 07-22-2024 TSH 3.100 uIU/mL Normal 0.358-3.740 [facility] Comment on above: Performed By: #### L 501.4021 #### [facility] [address] [place], [address] Urine Drug Screen (VISTA)on 07-22-2024 AMPHETAMINES Negative Normal <1000 ng/mL [facility] Comment on above: Performed By: #### L 100.0100 #### [facility] [address] [place], [address] BARBITIURATES Negative Normal < 200 ng/mL [facility] Comment on above: Performed By: #### L 100.0100 #### [facility] [address] [place], [address] BENZODIAZIPINE Negative Normal < 200 ng/mL [facility] Comment on above: Performed By: #### L 100.0100 #### [facility] [address] [place], [address] COCAINE Negative Normal < 300 ng/mL [facility] Comment on above: Performed By: #### L 100.0100 #### [facility] [address] [place], [address] ECSTACY Negative Normal < 500 ng/mL [facility] Comment on above: Performed By: #### L 100.0100 #### [facility] [address] [place], [address] METHADONE Negative Normal < 300 ng/mL [facility] Comment on above: Performed By: #### L 100.0100 #### [facility] [address] [place], [address] OPIATES Negative Normal < 300 ng/mL [facility] Comment on above: Performed By: #### L 100.0100 #### [facility] [address] [place], [address] PCP Negative Normal < 25 ng/mL [facility] Comment on above: Performed By: #### L 100.0100 #### [facility] [address] [place], [address] THC Negative Normal < 50 ng/mL [facility] Comment on above: Performed By: #### L 100.0100 #### [facility] [address] [place], [place], [id number] VISTA UDS PH 5 Normal [facility] Comment on above: Performed By: #### L 100.0100 #### [facility] [address] [place], [place], [id number] Urine amphetamine measuremen tOrdered By: Eric Figueroa on 07-22-2024 Amphetamines Ql (U) Negative <1000 ng/mL [facility] Urine barbiturates measureme ntOrdered By: Eric Figueroa on 07-22-2024 Urine Barbiturates Screen Negative < 200 ng/mL [facility] Urine benzodiazepine levelOr dered By: Eric Figueroa on 07-22-2024 Benzodiazepines Ql (U) Negative < 200 ng/mL [facility] Urine cocaine levelOrdered B y: Eric Figueroa on 07-22-2024 Cocaine Ql (U) Negative < 300 ng/mL [facility] Urine rmlht-9-cibhqtoapratfh abinol (THC) measurementOrdered By: Eric Figueroa on 07-22-2024 Cannabinoids Screen Ql (U) Negative < 50 ng/mL [facility] Urine methylenedioxymethamph etamine (MDMA) measurementOrdered By: Eric Figueroa on 07-22-2024 MDMA (Ecstasy) Screen Negative < 500 ng/mL [facility] Urine phencyclidine (PCP) de tectionOrdered By: Eric Figueroa on 07-22-2024 Phencyclidine Ql (U) Negative < 25 ng/mL [facility] Absolute neutrophil countOrd ered By: Ashlyn Gates on 06-17-2024 Neutrophils (Bld) [#/Vol] 6.9 10*3/uL 2.0-7.7 [facility] Albumin to globulin ratioOrd ered By: Ashlyn Gates on 06-17-2024 Albumin/Globulin [Mass ratio] 0.8 {ratio} Low 0.9-2.4 [facility] Basophil percentageOrdered B y: Ashlyn Gates on 06-17-2024 Basophils/100 WBC (Bld) 0.5 % 0-1 [facility] Bilirubin, totalOrdered By: Ashlyn Gates on 06-17-2024 Bilirubin [Mass/Vol] 0.40 mg/dL 0.20-1.00 [facility] Comment on above: For patients on eltr ombopag therapy, use of Dimension [place] TBIL is not recommended. Blood urea nitrogen (BUN)/cr eatinine ratioOrdered By: Ashlyn Gates on 06-17-2024 Urea nitrogen/Creatinine [Mass ratio] 19.7 mg/mg - [facility] CBC W/Diff, Automatedon 05-30 Absolute Lymph 2.80 X10 3/uL Normal 0.83-4.51 [facility] Comment on above: Performed By: #### L 501.5425, L100.0100, L500.2500 #### [facility] [address] [place], [address] Absolute Neut 6.9 X10 3/uL Normal 2.0-7.7 [facility] Comment on above: Performed By: #### L 501.5425, L100.0100, L500.2500 #### [facility] [address] [place], [address] Basophils/100 WBC (Bld) 0.5 % Normal 0-1 [facility] Comment on above: Performed By: #### L 501.5425, L100.0100, L500.2500 #### [facility] [address] [place], [address] Eosinophils/100 WBC (Bld) 2.2 % Normal 0-5 [facility] Comment on above: Performed By: #### L 501.5425, L100.0100, L500.2500 #### [facility] [address] [place], [address] Erythrocyte distribution width (RBC) [Ratio] 13.7 % Normal 11.6-14.6 [facility] Comment on above: Performed By: #### L 501.5425, L100.0100, L500.2500 #### [facility] [address] [place], [address] Hematocrit (Bld) [Volume fraction] 37.3 % Normal 37-47 [facility] Comment on above: Performed By: #### L 501.5425, L100.0100, L500.2500 #### [facility] [address] [place], [address] Hemoglobin (Bld) [Mass/Vol] 12.2 g/dL Normal 12.0-15.0 [facility] Comment on above: Performed By: #### L 501.5425, L100.0100, L500.2500 #### [facility] [address] [place], [address] IG% 0.400 Normal 0.0-0.9 [facility] Comment on above: Result Comment: IG% - Immature Granulocytes (promyelocytes, myelocytes and metamyelocytes) > 1% indicates that a LEFT SHIFT is Present. Performed By: #### L 501.5425, L100.0100, L500.2500 #### [facility] [address] [place], [address] Lymphocytes/100 WBC (Bld) 26.5 % Normal 19-41 [facility] Comment on above: Performed By: #### L 501.5425, L100.0100, L500.2500 #### [facility] [address] [place], [address] MCH (RBC) [Entitic mass] 26.5 pg Low 27.0-32.0 [facility] Comment on above: Performed By: #### L 501.5425, L100.0100, L500.2500 #### [facility] [address] [place], [address] MCHC (RBC) [Mass/Vol] 32.7 g/dL Normal 32-36 [facility] Comment on above: Performed By: #### L 501.5425, L100.0100, L500.2500 #### [facility] [address] [place], [address] MCV (RBC) [Entitic vol] 80.9 fL Low 81-99 [facility] Comment on above: Performed By: #### L 501.5425, L100.0100, L500.2500 #### [facility] [address] [place], [address] Monocytes/100 WBC (Bld) 4.8 % Normal 0-10 [facility] Comment on above: Performed By: #### L 501.5425, L100.0100, L500.2500 #### [facility] [address] [place], [address] Neutrophils/100 WBC (Bld) 65.6 % Normal 47-70 [facility] Comment on above: Performed By: #### L 501.5425, L100.0100, L500.2500 #### [facility] [address] [place], [address] Nucleated RBC (Bld) [#/Vol] 0 10*3/uL Normal 0-5 [facility] Comment on above: Performed By: #### L 501.5425, L100.0100, L500.2500 #### [facility] [address] [place], [address] Platelet mean volume (Bld) [Entitic vol] 11.3 fL Normal 6.2-12.0 [facility] Comment on above: Performed By: #### L 501.5425, L100.0100, L500.2500 #### [facility] [address] [place], [address] Platelets (Bld) [#/Vol] 300 10*3/uL Normal 150-450 [facility] Comment on above: Performed By: #### L 501.5425, L100.0100, L500.2500 #### [facility] [address] [place], [address] RBC (Bld) [#/Vol] 4.61 10*6/uL Normal 4.2-5.4 [facility] Comment on above: Performed By: #### L 501.5425, L100.0100, L500.2500 #### [facility] [address] [place], [address] RDW SD 40.0 fl Normal 35.1-43.9 [facility] Comment on above: Performed By: #### L 501.5425, L100.0100, L500.2500 #### [facility] [address] [place], [address] WBC (Bld) [#/Vol] 10.6 10*3/uL Normal 4.4-11.0 [facility] Comment on above: Performed By: #### L 501.5425, L100.0100, L500.2500 #### [facility] [address] [place], [address] Carbon dioxide measurementOr dered By: Ashlyn Gates on 06-17-2024 CO2 [Moles/Vol] 27.0 mmol/L 21.0-32.0 [facility] Chloride measurementOrdered By: Ashlyn Gates on 06-17-2024 Chloride [Moles/Vol] 107 mmol/L 98-107 [facility] Comprehensive Metabolic Prof ilon 06-17-2024 Albumin [Mass/Vol] 3.1 g/dL Low 3.2-5.0 [facility] Comment on above: Performed By: #### L 501.5425, L100.0100, L500.2500 #### [facility] [address] [place], [address] Albumin/Globulin [Mass ratio] 0.8 {ratio} Low 0.9-2.4 [facility] Comment on above: Performed By: #### L 501.5425, L100.0100, L500.2500 #### [facility] [address] [place], [address] ALK P 95 U/L Normal 45-117 [facility] Comment on above: Performed By: #### L 501.5425, L100.0100, L500.2500 #### [facility] [address] [place], [address] ALT [Catalytic activity/Vol] 16 U/L Normal 13-56 [facility] Comment on above: Performed By: #### L 501.5425, L100.0100, L500.2500 #### [facility] [address] [place], [address] AST [Catalytic activity/Vol] 9 U/L Low 15-37 [facility] Comment on above: Performed By: #### L 501.5425, L100.0100, L500.2500 #### [facility] [address] [place], [address] Bilirubin [Mass/Vol] 0.40 mg/dL Normal 0.20-1.00 [facility] Comment on above: Result Comment: For patients on eltrombopag therapy, use of Dimension [place] TBIL is not recommended. Performed By: #### L 501.5425, L100.0100, L500.2500 #### [facility] [address] [place], [address] BUN/CRE 19.7 RATIO Normal 10-20 [facility] Comment on above: Performed By: #### L 501.5425, L100.0100, L500.2500 #### [facility] [address] [place], [address] CA,Total 8.9 mg/dL Normal 8.5-10.1 [facility] Comment on above: Performed By: #### L 501.5425, L100.0100, L500.2500 #### [facility] [address] [place], [address] Chloride [Moles/Vol] 107 mmol/L Normal 98-107 [facility] Comment on above: Performed By: #### L 501.5425, L100.0100, L500.2500 #### [facility] [address] [place], [address] CO2 [Moles/Vol] 27.0 mmol/L Normal 21.0-32.0 [facility] Comment on above: Performed By: #### L 501.5425, L100.0100, L500.2500 #### [facility] [address] [place], [address] Creatinine [Mass/Vol] 0.66 mg/dL Normal 0.55-1.02 [facility] Comment on above: Result Comment: The validity of the calculated GFR GFRAA in patients over 70 years has not been determined. Clinical correlation is essential. Performed By: #### L 501.5425, L100.0100, L500.2500 #### [facility] [address] [place], [address] EST GFR - AA 137 mL/min Normal >60 [facility] Comment on above: Result Comment: Afri can [place] GFR Calc Performed By: #### L 501.5425, L100.0100, L500.2500 #### [facility] [address] [place], [address] GAP 5 Normal 5-15 [facility] Comment on above: Performed By: #### L 501.5425, L100.0100, L500.2500 #### [facility] [address] [place], [address] GFR/1.73 sq M.predicted among non-blacks MDRD (S/P/Bld) [Vol rate/Area] 113 mL/min/{1.73_m2} Normal >60 [facility] Comment on above: Result Comment: Non- GFR Calc Performed By: #### L 501.5425, L100.0100, L500.2500 #### [facility] [address] [place], [address] Globulin (S) [Mass/Vol] 3.8 g/dL Normal 2.2-4.2 [facility] Comment on above: Performed By: #### L 501.5425, L100.0100, L500.2500 #### [facility] [address] [place], [address] Glucose [Mass/Vol] 113 mg/dL High 74-106 [facility] Comment on above: Result Comment: Fast ing Glucose result from 100 to 125 mg/dL suggests IMPAIRED HOMEOSTASIS per A.D.A. criteria. Performed By: #### L 501.5425, L100.0100, L500.2500 #### [facility] [address] [place], [address] Potassium [Moles/Vol] 4.0 mmol/L Normal 3.5-5.1 [facility] Comment on above: Performed By: #### L 501.5425, L100.0100, L500.2500 #### [facility] [address] [place], [address] Sodium [Moles/Vol] 139 mmol/L Normal 136-145 [facility] Comment on above: Performed By: #### L 501.5425, L100.0100, L500.2500 #### [facility] [address] [place], [address] T PROT 6.9 g/dL Normal 6.4-8.2 [facility] Comment on above: Performed By: #### L 501.5425, L100.0100, L500.2500 #### [facility] [address] [place], [address] Urea nitrogen [Mass/Vol] 13 mg/dL Normal 7-18 [facility] Comment on above: Performed By: #### L 501.5425, L100.0100, L500.2500 #### [facility] [address] [place], [address] Eosinophil percentageOrdered By: Ashlyn Gates on 06-17-2024 Eosinophils/100 WBC (Bld) 2.2 % 0-5 [facility] Erythrocyte distribution wid th ratioOrdered By: Ashlyn Gates on 06-17-2024 Erythrocyte distribution width (RBC) [Ratio] 13.7 % 11.6-14.6 [facility] Erythrocyte distribution wid th standard deviationOrdered By: Ashlyn Gates on 06-17-2024 Erythrocyte distribution width (RBC) [Entitic vol] 40.0 fL 35.1-43.9 [facility] Estimated glomerular filtrat ion rate (GFR) AmericanOrdered By: Ashlyn Gates on 06-17-2024 Estimated GFR (MDRD) Amer 137 mL/min >60 [facility] Comment on above: GFR Calc Ferritinon 06-17-2024 Ferritin [Mass/Vol] 19 ng/mL Normal 8- [facility] Comment on above: Performed By: #### L 501.5425, L100.0100, L500.2500 #### [facility] [address] [place], [address] Ferritin measurementOrdered By: Ashlyn Gates on 06-17-2024 Ferritin [Mass/Vol] 19 ng/mL 8-252 [facility] Glomerular filtration rate ( GFR) estimationOrdered By: Ashlyn Gates on 06-17-2024 Estimated GFR (MDRD) Non-Af Amer 113 mL/min >60 [facility] Comment on above: Non- GFR Calc Glucose measurementOrdered B y: Ashlyn Gates on 06-17-2024 Glucose [Mass/Vol] 113 mg/dL High 74-106 [facility] Comment on above: Fasting Glucose resu lt from 100 to 125 mg/dL suggests IMPAIRED HOMEOSTASIS per A.D.A. criteria. Hematocrit Auto (Bld) [Volum e fraction]Ordered By: Ashlyn Gates on 06-17-2024 Hematocrit (Bld) [Volume fraction] 37.3 % 37-47 [facility] Hemoglobin A1con 06-17-2024 HbA1c (Bld) [Mass fraction] 5.4 % Normal 3.8-5.6 [facility] Comment on above: Result Comment: Norm al < 5.7 % Prediabetic 5.7 - 6.4 % Diabetic >or= 6.5 % Please note range changes. Performed By: #### L 501.3728, L100.0100, L500.2500 #### [facility] [place], [address] Hemoglobin A1c percentageOrd ered By: Ashlyn Gates on 06-17-2024 HbA1c (Bld) [Mass fraction] 5.4 % 3.8-5.6 [facility] Comment on above: Normal < 5.7 % Predi abetic 5.7 - 6.4 % Diabetic >or= 6.5 % Please note range changes. Hemoglobin measurementOrdere d By: Ashlyn Gates on 06-17-2024 Hemoglobin (Bld) [Mass/Vol] 12.2 g/dL 12.0-15.0 [facility] High density lipoprotein (HD L) measurementOrdered By: Ashlyn Gates on 06-17-2024 Cholesterol in HDL [Mass/Vol] 52 mg/dL >40 [facility] Comment on above: The drugs N-Acetylcy steine and Metamizole may falsely depress this assay. Reference Range HDL <40 mg/dL Low HDL Cholesterol HDL >or= 60 mg/dL High HDL Cholesterol Immature granulocytes/100 WB C Auto (Bld)Ordered By: Ashlyn Gates on 06-17-2024 Immature granulocytes/100 WBC (Bld) 0.400 % 0.0-0.9 [facility] Comment on above: IG% - Immature Granu locytes (promyelocytes, myelocytes and metamyelocytes) > 1% indicates that a LEFT SHIFT is Present. Iron (Unsp spec) [Mass/Mass] Ordered By: Ashlyn Gates on 06-17-2024 Iron [Mass/Vol] 64 ug/dL 50-170 [facility] Iron saturation [Mass fracti on]Ordered By: Ashlyn Gates on 06-17-2024 Iron Saturation 15.7 % 15.0-55.0 [facility] Iron+Iron Binding Capacityon 06-17-2024 Iron [Mass/Vol] 64 ug/dL Normal 50-170 [facility] Comment on above: Performed By: #### L 501.5425, L100.0100, L500.2500 #### [facility] [address] [place], [address] IRON SATURATION 15.7 Normal 15.0-55.0 [facility] Comment on above: Performed By: #### L 501.5425, L100.0100, L500.2500 #### [facility] [address] [facility] [place], [address] TIBC 408 ug/dL Normal 250-450 [facility] Comment on above: Performed By: #### L 501.5425, L100.0100, L500.2500 #### [facility] [address] [facility] [place], [address] Laboratory - Chemistry and C hemistry - challengeOrdered By: Ashlyn Gates on 06-17-2024 AST [Catalytic activity/Vol] 9 U/L Low 15-37 [facility] Lipid Profileon 06-17-2024 Cholesterol [Mass/Vol] 228 mg/dL High 200 [facility] Comment on above: Result Comment: <200 mg/dL Desirable 200-240 mg/dL Borderline >240 mg/dL High Risk Performed By: #### L 501.5425, L100.0100, L500.2500 #### [facility] [address] [place], [address] Cholesterol in HDL [Mass/Vol] 52 mg/dL Normal [facility] Comment on above: Result Comment: The drugs N-Acetylcysteine and Metamizole may falsely depress this assay. Reference Range HDL <40 mg/dL Low HDL Cholesterol HDL >or= 60 mg/dL High HDL Cholesterol Performed By: #### L 501.5425, L100.0100, L500.2500 #### [facility] [address] [place], [address] Cholesterol in LDL [Mass/Vol] 142 mg/dL High 0-130 [facility] Comment on above: Performed By: #### L 501.5425, L100.0100, L500.2500 #### [facility] [address] [place], [address] Cholesterol in VLDL [Mass/Vol] 34 mg/dL Normal 5-40 [facility] Comment on above: Performed By: #### L 501.5425, L100.0100, L500.2500 #### [facility] Laboratory [address] [place], [address] Triglyceride [Mass/Vol] 170 mg/dL Normal [facility] Comment on above: Result Comment: The drugs N-Acetylcysteine and Metamizole may falsely depress this assay. Serum Triglycerides Reference Interval Normal <150 mg/dL Borderline high 150 - 199 mg/dL High 200 - 499 mg/dL Very High > or = 500 mg/dL Performed By: #### L 501.5425, L100.0100, L500.2500 #### [facility] [address] [place], [address] Low density lipoprotein (LDL ) cholesterol measurementOrdered By: Ashlyn Gates on 06-17-2024 Cholesterol in LDL [Mass/Vol] 142 mg/dL High 0-130 [facility] Lymphocytes Auto (Unsp spec) [#/Vol]Ordered By: Ashlyn Gates on 06-17-2024 Lymphocytes (Bld) [#/Vol] 2.80 10*3/uL 0.83-4.51 [facility] Lymphocytes/100 WBC Auto (Un sp spec)Ordered By: Ashlyn Gates on 06-17-2024 Lymphocytes/100 WBC (Bld) 26.5 % 19-41 [facility] MCV (mean corpuscular volume ) determinationOrdered By: Ashlyn Gates on 06-17-2024 MCV (RBC) [Entitic vol] 80.9 fL Low 81-99 [facility] Magnesiumon 06-17-2024 Magnesium [Mass/Vol] 1.9 mg/dL Normal 1.6-2.6 [facility] Comment on above: Performed By: #### L 501.5425, L100.0100, L500.2500 #### [facility] Laboratory [address] [place] [address], [address] Magnesium measurementOrdered By: Ashlyn Gates on 06-17-2024 Magnesium [Mass/Vol] 1.9 mg/dL 1.6-2.6 [facility] Mean corpuscular hemoglobin (MCH) determinationOrdered By: Ashlyn Gates on 06-17-2024 MCH (RBC) [Entitic mass] 26.5 pg Low 27.0-32.0 [facility] Mean corpuscular hemoglobin concentration (MCHC) determinationOrdered By: Ashlyn Gates on 06-17-2024 MCHC (RBC) [Mass/Vol] 32.7 g/dL 32-36 [facility] Mean platelet volume determi nationOrdered By: Ashlyn Gates on 06-17-2024 Platelet mean volume (Bld) [Entitic vol] 11.3 fL 6.2-12.0 [facility] Monocyte percentageOrdered B y: Ashlyn Gates on 06-17-2024 Monocytes/100 WBC (Bld) 4.8 % 0-10 [facility] Neutrophil percentageOrdered By: Ashlyn Gates on 06-17-2024 Neutrophils/100 WBC (Bld) 65.6 % 47-70 [facility] Nucleated red blood cell per centageOrdered By: Ashlyn Gates on 06-17-2024 Nucleated RBC/100 WBC (Bld) [Ratio] 0 % 0-5 [facility] Platelet countOrdered By: Ra aroldo Gates on 06-17-2024 Platelets (Bld) [#/Vol] 300 10*3/uL 150-450 [facility] Potassium measurementOrdered By: Ashlyn Gates on 06-17-2024 Potassium [Moles/Vol] 4.0 mmol/L 3.5-5.1 [facility] RBC Auto (Bld) [#/Vol]Ordere d By: Ashlyn Gates on 06-17-2024 RBC (Bld) [#/Vol] 4.61 10*6/uL 4.2-5.4 [facility] Serum anion gap measurementO rdered By: Ashlyn Gates on 06-17-2024 Anion gap [Moles/Vol] 5 mmol/L 5-15 [facility] Serum globulin measurementOr dered By: Ashlyn Gates on 06-17-2024 Globulin (S) [Mass/Vol] 3.8 g/dL 2.2-4.2 [facility] Serum or plasma alanine rodriguez otransferase (ALT) measurementOrdered By: Ashlyn Gates on 06-17-2024 ALT [Catalytic activity/Vol] 16 U/L 13-56 [facility] Serum or plasma albumin sarina urement (mass/volume)Ordered By: Ashlyn Gates on 06-17-2024 Albumin [Mass/Vol] 3.1 g/dL Low 3.2-5.0 [facility] Serum or plasma alkaline mayco sphatase measurementOrdered By: Ashlyn Gates on 06-17-2024 ALP [Catalytic activity/Vol] 95 U/L 45-117 [facility] Serum or plasma calcium sarina urement (mass/volume)Ordered By: Ashlyn Gates on 06-17-2024 Calcium [Mass/Vol] 8.9 mg/dL 8.5-10.1 [facility] Serum or plasma cholesterol measurement (mass/volume)Ordered By: Ashlyn Gates on 01-20-2025 Cholesterol [Mass/Vol] 228 mg/dL High <200 [facility] Comment on above: <200 mg/dL Desirable 200-240 mg/dL Borderline >240 mg/dL High Risk Serum or plasma creatinine m easurement (mass/volume)Ordered By: Ashlyn Gates on 06-17-2024 Creatinine [Mass/Vol] 0.66 mg/dL 0.55-1.02 [facility] Comment on above: The validity of the calculated GFR & GFRAA in patients over 70 years has not been determined. Clinical correlation is essential. Serum or plasma urea nitroge n measurement (mass/volume)Ordered By: Ashlyn Gates on 06-17-2024 Urea nitrogen [Mass/Vol] 13 mg/dL 7-18 [facility] Sodium levelOrdered By: Adrianna Gates on 06-17-2024 Sodium [Moles/Vol] 139 mmol/L 136-145 [facility] TIBCOrdered By: Ashlyn mendes on 06-17-2024 Total Iron Binding Capacity 408 ug/dL 250-450 [facility] Total proteinOrdered By: Renetta Gates on 06-17-2024 Protein [Mass/Vol] 6.9 g/dL 6.4-8.2 [facility] Triglycerides measurementOrd ered By: Ashlyn Gates on 06-17-2024 Triglyceride [Mass/Vol] 170 mg/dL <199 [facility] Comment on above: The drugs N-Acetylcy steine and Metamizole may falsely depress this assay.Serum Triglycerides Reference Interval Normal <150 mg/dL Borderline high 150 - 199 mg/dL High 200 - 499 mg/dL Very High > or = 500 mg/dL Very low density lipoprotein (VLDL) cholesterol measurementOrdered By: Ashlyn Gates on 06-17-2024 VLDL Cholesterol 34 mg/dL 5-40 [facility] Vitamin B12on 06-17-2024 Cobalamin (Vitamin B12) [Mass/Vol] 683 pg/mL Normal 211-911 [facility] Comment on above: Performed By: #### L 501.5407, L100.0100, L500.2500 #### [facility] Laboratory [facility] [address] [place], [place], [id number] Vitamin B12 measurementOrder ed By: Ashlyn Gates on 06-17-2024 Cobalamin (Vitamin B12) [Mass/Vol] 683 pg/mL 211-911 [facility] White blood cell (WBC) count Ordered By: Ashlyn Yajaira on 06-17-2024 WBC (Bld) [#/Vol] 10.6 10*3/uL 4.4-11.0 [facility] ED Prov Noteon 01-21-2024 ED Prov Note [facility] ED Physician Note: NAME: Yemi Jc 28 y.o. CSN: [id number] PCP: Ashlyn Gates PA-C ED Course / [...] Result No acute fracture or traumatic malalignment. [employer] Workstation ID: [id number] XR Foot Right 3+ Views (Standard) Preliminary Result Subtle cortical irregularity at the base of the 5th proximal phalanx. Cannot exclude underlying nondisplaced fracture. Please correlate with point tenderness. No additi (more content not included)... [facility] XR ANKLE RIGHT 3+ VIEWS (STA NDARD)on [...] IMPRESSION: No acute fracture or traumatic malalignment. [employer] Workstation ID: [id number] Dictated by: STACY OSUNA on [place] Jan 21, 2024 1:45:19 PM EDT Transcribed by: MEENA HILARIO on [place] Jan 21, 2024 1:46:14 PM EDT Finalized by: STACY OSUNA on [place] Jan 21, 2024 8:45:08 PM EDT [facility] Comment on above: Order Comment: Injur y/Trauma [...] correlate with point tenderness. No additional fractures. [employer] ([employer] That Workstation ID: [id number] Dictated by: STACY OSUNA on MonJan 21, 2024 1:48:47 PM EDT Transcribed by: MEENA HILARIO on MonJan 21, 2024 1:49:23 PM EDT Finalized by: STACY OSUNA on [place] Jan 21, 2024 8:47:41 PM EDT [facility] Comment on above: Order Comment: Injur y/Trauma or Illness?:Injury/Trauma How long have you had these symptoms (acute/chronic)?:Acute Reason for exam?:foot pain History of cancer?:n Surgeries, chemotherapy, or radiation?:n Type of Exam?:Initial Mechanism of injury?:missed 1 step while walking down stairs yesterday and rolled her right ankle No Panel Informationon 08-11 [facility] Work Phone: POCT BD Veritor Covid-19 Ag manually resultedon 08-12-2023 SARS-CoV-2 (COVID-19) Ag IA.rapid Ql (Resp) Positive Abnormal Presumptive negative test for SARS-CoV-2 (no antigen detected) [facility] Work Phone: POCT Influenza A/B manually resultedon 08-12-2023 POC Rapid Influenza A Negative Negative [facility] Work Phone: POC Rapid Influenza B Negative Negative [facility] Work Phone: SARS-CoV-2 (COVID-19) Ag IA. rapid Ql (Resp)on 08-12-2023 Interpretation and review of laboratory results Abnormal [facility] Work Phone: Absolute lymphocyte countOrd ered By: Ashlyn Gates on 05-17-2023 Lymphocytes Auto (Unsp spec) [#/Vol] 2.22 10*3/uL 0.83-4.51 [facility] Basophil percentageOrdered B y: Ashlyn Gates on 05-17-2023 Basophils/100 WBC (Bld) 0.6 % 0-1 [facility] Bilirubin [Mass/Vol] 0.40 mg/dL 0.20-1.00 [facility] Comment on above: For patients on eltr ombopag therapy, use of Dimension [place] TBIL is not recommended. Chloride [Moles/Vol] 106 mmol/L 98-107 [facility] Cholesterol [Mass/Vol] 198 mg/dL <200 [facility] Comment on above: <200 mg/dL Desirable 200-240 mg/dL Borderline >240 mg/dL High Risk Eosinophils/100 WBC (Bld) 1.9 % 0-5 [facility] Glucose [Mass/Vol] 119 mg/dL 74-106 [facility] Comment on above: Fasting Glucose resu lt from 100 to 125 mg/dL suggests IMPAIRED HOMEOSTASIS per A.D.A. criteria. Neutrophils (Bld) [#/Vol] 7.3 10*3/uL 2.0-7.7 [facility] Neutrophils/100 WBC (Bld) 71.2 % 47-70 [facility] Potassium [Moles/Vol] 4.3 mmol/L 3.5-5.1 [facility] Protein [Mass/Vol] 7.4 g/dL 6.4-8.2 [facility] Sodium [Moles/Vol] 137 mmol/L 136-145 [facility] Triglyceride [Mass/Vol] 86 mg/dL <199 [facility] Comment on above: The drugs N-Acetylcy steine and Metamizole may falsely depress this assay.Serum Triglycerides Reference Interval Normal <150 mg/dL Borderline high 150 - 199 mg/dL High 200 - 499 mg/dL Very High > or = 500 mg/dL WBC (Bld) [#/Vol] 10.3 10*3/uL 4.4-11.0 [facility] Blood erythrocytes count (nu mber/volume)Ordered By: Ashlyn Gates on 05-17-2023 RBC (Bld) [#/Vol] 4.61 10*6/uL 4.2-5.4 [facility] Blood hemoglobin measurement (mass/volume)Ordered By: Ashlyn Gates on 05-17-2023 Hemoglobin (Bld) [Mass/Vol] 12.0 g/dL 12.0-15.0 [facility] Blood lymphocytes/100 leukoc ytesOrdered By: Ashlyn Gates on 05-17-2023 Lymphocytes/100 WBC (Bld) 21.6 % 19-41 [facility] Blood monocytes/100 leukocyt esOrdered By: Ashlyn Gates on 05-17-2023 Monocytes/100 WBC (Bld) 4.4 % 0-10 [facility] Blood platelet mean volumeOr dered By: Ashlyn Gates on 05-17-2023 Platelet mean volume (Bld) [Entitic vol] 10.7 fL 6.2-12.0 [facility] Determination of erythrocyte mean corpuscular volume (MCV)Ordered By: Ashlyn Gates on 05-17-2023 MCV (RBC) [Entitic vol] 81.1 fL 81-99 [facility] Hematocrit Auto (Bld) [Volum e fraction]Ordered By: Ashlyn Gates on 05-17-2023 Hematocrit (Bld) [Volume fraction] 37.4 % 37-47 [facility] Iron measurement (mass/mass) Ordered By: Ashlyn Gates on 05-17-2023 Iron (Unsp spec) [Mass/Mass] 52 ug/dL 50-170 [facility] Laboratory - Chemistry and C hemistry - challengeOrdered By: Ashlyn Gates on 05-17-2023 ALP [Catalytic activity/Vol] 92 U/L 45-117 [facility] ALT [Catalytic activity/Vol] 34 U/L 13-56 [facility] CO2 [Moles/Vol] 30.0 mmol/L 21.0-32.0 [facility] Cobalamin (Vitamin B12) [Mass/Vol] 397 pg/mL 211-911 [facility] Globulin (S) [Mass/Vol] 3.8 g/dL 2.2-4.2 [facility] Magnesium [Mass/Vol] 2.0 mg/dL 1.6-2.6 [facility] Urea nitrogen/Creatinine [Mass ratio] 16.0 mg/mg 10-20 [facility] Laboratory - Hematology and Cell countsOrdered By: Ashlyn Gates on 05-17-2023 Erythrocyte distribution width (RBC) [Entitic vol] 39.6 fL 35.1-43.9 [facility] Erythrocyte distribution width (RBC) [Ratio] 13.5 % 11.6-14.6 [facility] Immature granulocytes/100 WBC (Bld) 0.300 % 0.0-0.9 [facility] Comment on above: IG% - Immature Granu locytes (promyelocytes, myelocytes and metamyelocytes) > 1% indicates that a LEFT SHIFT is Present. MCH (RBC) [Entitic mass] 26.0 pg 27.0-32.0 [facility] Nucleated RBC/100 WBC (Bld) [Ratio] 0 % 0-5 [facility] MCHC Auto (RBC) [Mass/Vol]Or dered By: Ashlyn Gates on 05-17-2023 MCHC (RBC) [Mass/Vol] 32.1 g/dL 32-36 [facility] No Panel InformationOrdered By: Ashlyn Gates on 05-17-2023 Estimated GFR (MDRD) Amer 147 mL/min >60 [facility] Comment on above: GFR Calc Estimated GFR (MDRD) Non-Af Amer 122 mL/min >60 [facility] Comment on above: Non- GFR Calc Total Iron Binding Capacity 352 ug/dL 250-450 [facility] Platelets bldOrdered By: Renetta Gates on 05-17-2023 Platelets (Bld) [#/Vol] 327 10*3/uL 150-450 [facility] Serum or plasma albumin sarina urement (mass/volume)Ordered By: Ashlyn Gates on 05-17-2023 Albumin [Mass/Vol] 3.6 g/dL 3.2-5.0 [facility] Serum or plasma albumin/glob ulin mass ratioOrdered By: Ashlyn Gates on 05-17-2023 Albumin/Globulin [Mass ratio] 0.9 {ratio} 0.9-2.4 [facility] Serum or plasma calcium sarina urement (mass/volume)Ordered By: Ashlyn Gates on 05-17-2023 Calcium [Mass/Vol] 8.8 mg/dL 8.5-10.1 [facility] Serum or plasma cholesterol in HDL measurement (mass/volume)Ordered By: Ashlyn Gates on 05-17-2023 Cholesterol in HDL [Mass/Vol] 45 mg/dL >40 [facility] Comment on above: The drugs N-Acetylcy steine and Metamizole may falsely depress this assay. Reference Range HDL <40 mg/dL Low HDL Cholesterol HDL >or= 60 mg/dL High HDL Cholesterol Serum or plasma cholesterol in VLDL measurement (mass/volume)Ordered By: Ashlyn Gates on 05-17-2023 Cholesterol in VLDL [Mass/Vol] 17 mg/dL 5-40 [facility] Serum or plasma creatinine m easurement (mass/volume)Ordered By: Ashlyn Gates on 05-17-2023 Creatinine [Mass/Vol] 0.62 mg/dL 0.55-1.02 [facility] Comment on above: The validity of the calculated GFR & GFRAA in patients over 70 years has not been determined. Clinical correlation is essential. Serum or plasma ferritin juvenal surement (mass/volume)Ordered By: Ashlyn Gates on 05-17-2023 Ferritin [Mass/Vol] 22 ng/mL 8-252 [facility] Serum or plasma iron saturat ion measurement (mass fraction)Ordered By: Ashlyn Gates on 05-17-2023 Iron saturation [Mass fraction] 14.8 % 15.0-55.0 [facility] Serum or plasma low density lipoprotein (LDL) cholesterol measurement (mass/volume)Ordered By: Ashlyn Gates on 05-17-2023 Cholesterol in LDL [Mass/Vol] 136 mg/dL 0-130 [facility] Serum or plasma urea nitroge n measurement (mass/volume)Ordered By: Ashlyn Gates on 05-17-2023 Urea nitrogen [Mass/Vol] 10 mg/dL 7-18 [facility] Thin prep Papanicolaou smear with manual screeningOrdered By: Ashlyn Gates on 05-17-2023 Thin prep Papanicolaou smear with manual screening 20 U/L 15-37 [facility] Thin prep Papanicolaou smear with manual screening 1 5-15 [facility] Whole blood hemoglobin A1c/t otal hemoglobin ratio (mass fraction)Ordered By: Ashlyn Gates on 05-17-2023 HbA1c (Bld) [Mass fraction] 5.1 % 3.8-5.6 [facility] Comment on above: Normal < 5.7 % [...] Colonoscopy History of Esophagogastroduodenosco py History of [place] tooth extraction Family History Family history of [...] Omeprazole 20 (more content not included)... Normal [facility] Provider Note - ED v3on 05- Provider [...] EVENTS: Past Medical History Description:COVID ( recovered) WELDER GUN: Is : no Is : no REVIEW [...] SIGNS: T PRBP SpO2O2(LPM) %FiO2 Method 18-Oct-2022 09:18:[id number] 98 MDM MDM/ED COURSE: Discussed Findings with: [...] ill patient: no Electronic Signatures: Kb Meyer (TRAVEL REGISTERED NURSE PACU-CAMP NURSE) (Signed 18-Oct-2022 09:40) Authored: ED Notes, HPI, PMH, ROS, PE, Results/Vital Signs, MDM/ED Course, Clinical Impression, Attestation, Chart Review, Scores Last Updated: 18-Oct-2022 09:40 by Kb Meyer (TRAVEL REGISTERED NURSE PACU-CAMP NURSE) [facility] Atypical perinuclear antineu trophil cytoplasmic antibodies measurementOrdered By: Mark Schroeder on 09-16-2022 Neutrophil cytoplasmic Ab.perinuclear.atypical IF (S) [Titer] <1:20 titer Neg:<1:20 [facility] Comment on above: The atypical pANCA p attern has been observed in asignificant percentage of patients with ulcerative colitis,primary sclerosing cholangitis and autoimmune hepatitis.Performed at: [facility] [address] [id number] Director: Zeeshan Carlton PhD, Phone: [phone] at: [facility] [id number] Director: Luz Ponce MD, Phone: [phone] Basophil percentageOrdered B y: Mark Schroeder on 09-16-2022 Basophil percentage < 0.2 AI 0.0-0.9 [facility] LDH [Catalytic activity/Vol] 178 U/L 84-246 [facility] Chocolate RASTOrdered By: Ra ladarius Schroeder on 09-16-2022 Chocolate IgE Qn (S) <0.10 kU/L Class 0 [facility] Comment on above: Performed at: [facility] [id number] Director: Zeeshan Carlton PhD, Phone: [phone] at: [email or web address] [id number] Director: Luz Ponce MD, Phone: [phone] EP PanelOrdered By: Mark Schroeder on 09-16-2022 Gastrointestinal pathogens panel PEARL+probe (Stl) [facility] Erythrocyte sedimentation ra teOrdered By: Mark Schroeder on 09-16-2022 ESR (Bld) [Velocity] 31 mm/h 0-30 [facility] Laboratory - Miscellaneous t estsOrdered By: Mark Schroeder on 09-16-2022 Service comment (Unsp spec) [Interp] Comment . [facility] Comment on above: Levels of Specific I [...] 09-16-2022 Centromere B Antibody <0.2 AI 0.0-0.9 [facility] Endomysial IgA Antibody Negative Negative [facility] Immunoglobulin E 27 IU/mL 6-495 [facility] GUARD CAPTAIN Antibody <0.2 AI 0.0-0.9 [facility] Seafood [employer] Allergens (RAST) Negative . [facility] Comment on above: Allergens in this mi x are: Blue mussel Fish [place] Shrimp Tuna Serum DNA double strand anti body assay (units/volume)Ordered By: Mark Schroeder on 09-16-2022 DNA double strand Ab Qn (S) [IU]/mL 0-9 [facility] Comment on above: Negative <5 Equivoca l 5 - 9 Positive >9 Serum Ashley-1 antibody assay (u nits/volume)Ordered By: Mark Schroeder on 09-16-2022 Ashley-1 extractable nuclear Ab Qn (S) <0.2 AI 0.0-0.9 [facility] Serum Scl-70 extractable nuc lear antibody assay (units/volume)Ordered By: Mark Schroeder on 09-16-2022 SCL-70 extractable nuclear Ab Qn (S) <0.2 AI 0.0-0.9 [facility] Serum Hilario extractable nucl ear antibody detectionOrdered By: Mark Schroeder on 09-16-2022 Hilario extractable nuclear Ab Ql (S) <0.2 AI 0.0-0.9 [facility] Serum beef IgE antibody assa y (units/volume)Ordered By: Mark Schroeder on 09-16-2022 Beef IgE Qn (S) <0.10 kU/L Class 0 [facility] Serum classic neutrophil cyt oplasmic antibody assay (units/volume)Ordered By: Mark Schroeder on 09-16-2022 Neutrophil cytoplasmic Ab.classic Qn (S) <1:20 titer Neg:<1:20 [facility] Serum corn IgE antibody assa y (units/volume)Ordered By: Mark Schroeder on 09-16-2022 [place] IgE Qn (S) <0.10 kU/L Class 0 [facility] Serum cow milk IgE antibody assay (units/volume)Ordered By: Mark Schroeder on 09-16-2022 Cow milk IgE Qn (S) <0.10 kU/L Class 0 [facility] Serum or plasma C reactive p rotein measurement (mass/volume)Ordered By: Mark Schroeder on 09-16-2022 CRP [Mass/Vol] 29.80 mg/L 0.0-3.0 [facility] Comment on above: C-Reactive Protein ( CRP) provides useful information for thediagnosis, therapy and monitoring of inflammatory processesand associated diseases. For the evaluation of Relative Riskfor Cardiovascular Disease, a High Sensitivity CRP (HSCRP)should be ordered. Serum or plasma IgA measurem ent (mass/volume)Ordered By: Mark Schroeder on 09-16-2022 IgA [Mass/Vol] 142 mg/dL 87-352 [facility] Serum or plasma IgG measurem ent (mass/volume)Ordered By: Markvamsi Schroeder on 09-16-2022 IgG [Mass/Vol] 1007 mg/dL 586-1602 [facility] Serum or plasma IgM measurem ent (mass/volume)Ordered By: Mark Schroeder on 09-16-2022 IgM [Mass/Vol] 87 mg/dL 26-217 [facility] Serum peanut IgE antibody as say (units/volume)Ordered By: Mark Schroeder on 09-16-2022 Peanut IgE Qn (S) <0.10 kU/L Class 0 [facility] Serum perinuclear neutrophil cytoplasmic antibody titer by immunofluorescenceOrdered By: Mark Schroeder on 09-16-2022 Neutrophil cytoplasmic Ab.perinuclear IF (S) [Titer] <1:20 titer Neg:<1:20 [facility] Comment on above: The presence of posi tive fluorescence exhibiting P-ANCA orC-ANCA patterns alone is not specific for the diagnosis ofWegener's Granulomatosis (WG) or microscopic polyangiitis.Decisions about treatment should not be based solely onANCA IFA results. The [employer] ANCA Group Consensusrecommends follow up testing of positive sera with both WA-3 and MPO-ANCA enzyme immunoassays. As many as 5% serumsamples are positive only by EIA. Ref. AM J Clin Eqxyah3216;111:507-513. Serum pork IgE antibody assa y (units/volume)Ordered By: Mark Schroeder on 09-16-2022 Pork IgE Qn (S) <0.10 kU/L Class 0 [facility] Serum soybean IgE antibody a ssay (units/volume)Ordered By: Mark Schroeder on 09-16-2022 Soybean IgE Qn (S) <0.10 kU/L Class 0 [facility] Serum tissue transglutaminas e IgA antibody assay (units/volume)Ordered By: Mark Schroeder on 09-16-2022 tTG IgA Qn (S) <2 U/mL 0-3 [facility] Comment on above: Negative 0 - 3 Weak Positive 4 - 10 Positive >10 Tissue Transglutaminase (tTG) has been identified as the endomysial antigen. Studies have demonstr- ated that endomysial IgA antibodies have over 99% specificity for gluten sensitive enteropathy. Serum wheat IgE antibody ass ay (units/volume)Ordered By: Mark Schroeder on 09-16-2022 Wheat IgE Qn (S) <0.10 kU/L Class 0 [facility] Serum whole egg IgE antibody assay (units/volume)Ordered By: Mark Schroeder on 09-16-2022 Whole Egg IgE Qn (S) <0.10 kU/L Class 0 [facility] Stool lactoferrin detection by immunoassayOrdered By: Mark Schroeder on 09-16-2022 Lactoferrin IA Ql (Stl) [facility] Absolute lymphocyte countOrd ered By: Dr. Hernandez on 09-03-2022 Lymphocytes Auto (Unsp spec) [#/Vol] 2.15 10*3/uL 0.83-4.51 [facility] Basophil percentageOrdered B y: Dr. Hernandez on 09-03-2022 Basophils/100 WBC (Bld) 0.5 % 0-1 [facility] Bilirubin [Mass/Vol] 0.30 mg/dL 0.20-1.00 [facility] Comment on above: For patients on eltr ombopag therapy, use of Dimension [place] TBIL is not recommended. Chloride [Moles/Vol] 110 mmol/L 98-107 [facility] Eosinophils/100 WBC (Bld) 3.8 % 0-5 [facility] Glucose [Mass/Vol] 87 mg/dL 74-106 [facility] Neutrophils (Bld) [#/Vol] 3.1 10*3/uL 2.0-7.7 [facility] Neutrophils/100 WBC (Bld) 51.0 % 47-70 [facility] Potassium [Moles/Vol] 3.7 mmol/L 3.5-5.1 [facility] Comment on above: Slight Hemolysis, Re sult may be falsely increased. Protein [Mass/Vol] 6.8 g/dL 6.4-8.2 [facility] Sodium [Moles/Vol] 140 mmol/L 136-145 [facility] WBC (Bld) [#/Vol] 6.0 10*3/uL 4.4-11.0 [facility] Beta hCG serum qualOrdered B y: Dr. Hernandez on 09-03-2022 Beta HCG ( test) Ql Negative [facility] Blood erythrocytes count (nu mber/volume)Ordered By: Dr. Hernandez on 09-03-2022 RBC (Bld) [#/Vol] 4.61 10*6/uL 4.2-5.4 [facility] Blood hemoglobin measurement (mass/volume)Ordered By: Dr. Hernandez on 09-03-2022 Hemoglobin (Bld) [Mass/Vol] 12.4 g/dL 12.0-15.0 [facility] Blood lymphocytes/100 leukoc ytesOrdered By: Dr. Hernandez on 09-03-2022 Lymphocytes/100 WBC (Bld) 35.7 % 19-41 [facility] Blood monocytes/100 leukocyt esOrdered By: Dr. Hernandez on 09-03-2022 Monocytes/100 WBC (Bld) 8.8 % 0-10 [facility] Blood platelet mean volumeOr dered By: Dr. Hernandez on 09-03-2022 Platelet mean volume (Bld) [Entitic vol] 10.9 fL 6.2-12.0 [facility] Determination of erythrocyte mean corpuscular volume (MCV)Ordered By: Dr. Hernandez on 09-03-2022 MCV (RBC) [Entitic vol] 80.9 fL 81-99 [facility] Direct bilirubinOrdered By: Dr. Hernandez on 09-03-2022 Bilirubin.direct [Mass/Vol] 0.05 mg/dL 0.00-0.30 [facility] Hematocrit Auto (Bld) [Volum e fraction]Ordered By: Dr. Hernandez on 09-03-2022 Hematocrit (Bld) [Volume fraction] 37.3 % 37-47 [facility] Laboratory - Chemistry and C hemistry - challengeOrdered By: Dr. Hernandez on 09-03-2022 ALP [Catalytic activity/Vol] 83 U/L 45-117 [facility] ALT [Catalytic activity/Vol] 56 U/L 13-56 [facility] CO2 [Moles/Vol] 24.0 mmol/L 21.0-32.0 [facility] Globulin (S) [Mass/Vol] 3.9 g/dL 2.2-4.2 [facility] Lipase [Catalytic activity/Vol] 51 U/L 73-393 [facility] Urea nitrogen/Creatinine [Mass ratio] 17.1 mg/mg 10-20 [facility] Laboratory - Hematology and Cell countsOrdered By: Dr. Hernandez on 09-03-2022 Erythrocyte distribution width (RBC) [Entitic vol] 39.2 fL 35.1-43.9 [facility] Erythrocyte distribution width (RBC) [Ratio] 13.4 % 11.6-14.6 [facility] Immature granulocytes/100 WBC (Bld) 0.200 % 0.0-0.9 [facility] Comment on above: IG% - Immature Granu locytes (promyelocytes, myelocytes and metamyelocytes) > 1% indicates that a LEFT SHIFT is Present. MCH (RBC) [Entitic mass] 26.9 pg 27.0-32.0 [facility] Nucleated RBC/100 WBC (Bld) [Ratio] 0 % 0-5 [facility] MCHC Auto (RBC) [Mass/Vol]Or dered By: Dr. Hernandez on 09-03-2022 MCHC (RBC) [Mass/Vol] 33.2 g/dL 32-36 [facility] No Panel InformationOrdered By: Dr. Hernandez on 09-03-2022 Estimated Creatinine Clearance Calc 119.86 ml/min [facility] Estimated GFR (MDRD) Amer 143 mL/min >60 [facility] Comment on above: GFR Calc Estimated GFR (MDRD) Non-Af Amer 118 mL/min >60 [facility] Comment on above: Non- GFR Calc Platelets bldOrdered By: Dr. Hernandez on 09-03-2022 Platelets (Bld) [#/Vol] 272 10*3/uL 150-450 [facility] Serum or plasma albumin sarina urement (mass/volume)Ordered By: Dr. Hernandez on 09-03-2022 Albumin [Mass/Vol] 2.9 g/dL 3.2-5.0 [facility] Serum or plasma calcium sarina urement (mass/volume)Ordered By: Dr. Hernandez on 09-03-2022 Calcium [Mass/Vol] 8.3 mg/dL 8.5-10.1 [facility] Serum or plasma creatinine m easurement (mass/volume)Ordered By: Dr. Hernandez on 09-03-2022 Creatinine [Mass/Vol] 0.64 mg/dL 0.55-1.02 [facility] Comment on above: The validity of the calculated GFR & GFRAA in patients over 70 years has not been determined. Clinical correlation is essential. Serum or plasma urea nitroge n measurement (mass/volume)Ordered By: Dr. Hernandez on 09-03-2022 Urea nitrogen [Mass/Vol] 11 mg/dL 7-18 [facility] Thin prep Papanicolaou smear with manual screeningOrdered By: Dr. Hernandez on 09-03-2022 Thin prep Papanicolaou smear with manual screening 38 U/L 15 [facility] Comment on above: Slight Hemolysis, Re sult may be falsely increased. Thin prep Papanicolaou smear with manual screening 6 5-15 [facility] Established Visit (Pain Medi cine)on 07-18-2022 Established [...] WOMENS CARE (more content not included)... Normal [facility] - Microbiology an d Antimicrobial susceptibilityon 05-18-2022 SARS-CoV-2 (COVID-19) RNA PEARL+probe Ql (Unsp spec) Not detected [facility] No Panel Informationon 05-18 POC Nasal Swab Influenza A,B Detected [facility] POC Nasal Swab RSV Not detected [facility] Office Visit (Internal Medic ine)on 05-03-2022 [...] 5;For: Dyspepsia; INES = N; Sent To: [facility] JESSICA (generalized anxiety disorder) Renew: busPIRone HCl - 30 MG Oral Tablet; TAKE 1 TABLET TWICE DAILY Rx By: Ashlyn Gates; Dispense: 30 Days ; #:60 Tablet; Refill: 5;For: JESSICA (generalized anxiety disorder); INES = N; Sent To: [facility] Renew: Citalopram Hydrobromide 40 MG Oral Tablet (CeleXA); take 1/2 tab dailyx 2 weeks then 1 tab po daily Rx By: Ashlyn Gates; Dispense: 0 Days ; #:30 Tablet; Refill: 5;For: JESSICA (generalized anxiety disorder); INES = N; Sent To: [facility] Low vitamin B12 level Administered: Cyanocobalamin 1000 MCG/ML Injection Solution Rx By: Ashlyn Gates;For: Low vitamin B12 level; Dose of 1 ML; Intramuscular; INES = N; Administered by: Yumiko Ayala FLORIST HELPER: 05/03/2022 3:12:00 PM; Last Updated By: Yumiko Ayala; 05/03/2022 3:13:02 PM Patient Discussion/Summary f/u in 6 mo with labs at [facility] fasting CBC - glucose intolerance CMP hgba1c [...] on/off adipex 3 Preventative testing PAP - [facility] - last exam was september [...] (generalized an (more content not included)... Normal [facility] Tobacco Screening.on 022 Fall risk assessment a) No falls within the last year [facility] Work Phone: Tobacco use status [facility] b) No M [facility] Work Phone: Absolute lymphocyte counton 05-02-2022 Lymphocytes Auto (Unsp spec) [#/Vol] 3.18 10*3/uL 0.83-4.51 [facility] Work Phone: Basophil percentageon 2021 Basophils/100 WBC (Bld) 0.9 % 0-1 [facility] Work Phone: Bilirubin [Mass/Vol] 0.30 mg/dL 0.20-1.00 [facility] Work Phone: Comment on above: For patients on eltr ombopag therapy, use of Dimension [place] TBIL is not recommended. Chloride [Moles/Vol] 104 mmol/L 98-107 [facility] Work Phone: Cholesterol [Mass/Vol] 235 mg/dL <200 [facility] Work Phone: Comment on above: <200 mg/dL Desirable 200-240 mg/dL Borderline >240 mg/dL High Risk Eosinophils/100 WBC (Bld) 2.7 % 0-5 [facility] Work Phone: Glucose [Mass/Vol] 98 mg/dL 74-106 [facility] Work Phone: [phone] Neutrophils (Bld) [#/Vol] 5.4 10*3/uL 2.0-7.7 [facility] Work Phone: Neutrophils/100 WBC (Bld) 57.5 % 47-70 [facility] Work Phone: Potassium [Moles/Vol] 3.8 mmol/L 3.5-5.1 [facility] Work Phone: Protein [Mass/Vol] 7.0 g/dL 6.4-8.2 [facility] Work Phone: [phone] Sodium [Moles/Vol] 138 mmol/L 136-145 [facility] Work Phone: Triglyceride [Mass/Vol] 169 mg/dL <199 [facility] Work Phone: Comment on above: The drugs N-Acetylcy steine and Metamizole may falsely depress this assay.Serum Triglycerides Reference Interval Normal <150 mg/dL Borderline high 150 - 199 mg/dL High 200 - 499 mg/dL Very High > or = 500 mg/dL WBC (Bld) [#/Vol] 9.3 10*3/uL 4.4-11.0 [facility] Work Phone: Blood erythrocytes count (nu mber/volume)on 05-02-2022 RBC (Bld) [#/Vol] 4.71 10*6/uL 4.2-5.4 [facility] Work Phone: Blood hemoglobin measurement (mass/volume)on 05-02-2022 Hemoglobin (Bld) [Mass/Vol] 12.5 g/dL 12.0-15.0 [facility] Work Phone: Blood lymphocytes/100 leukoc yteson 05-02-2022 Lymphocytes/100 WBC (Bld) 34.0 % 19-41 [facility] Work Phone: Blood monocytes/100 leukocyt eson 05-02-2022 Monocytes/100 WBC (Bld) 4.7 % 0-10 [facility] Work Phone: Blood platelet mean volumeon 05-02-2022 Platelet mean volume (Bld) [Entitic vol] 11.4 fL 6.2-12.0 [facility] Work Phone: Determination of erythrocyte mean corpuscular volume (MCV)on 05-02-2022 MCV (RBC) [Entitic vol] 80.7 fL 81-99 [facility] Work Phone: Hematocrit Auto (Bld) [Volum e fraction]on 05-02-2022 Hematocrit (Bld) [Volume fraction] 38.0 % 37-47 [facility] Work Phone: Iron measurement (mass/mass) on 05-02-2022 Iron (Unsp spec) [Mass/Mass] 83 ug/dL 50-170 [facility] Work Phone: Laboratory - Chemistry and C hemistry - challengeon 05-02-2022 ALP [Catalytic activity/Vol] 74 U/L 45-117 [facility] Work Phone: ALT [Catalytic activity/Vol] 21 U/L 13-56 [facility] Work Phone: CO2 [Moles/Vol] 26.0 mmol/L 21.0-32.0 [facility] Work Phone: Cobalamin (Vitamin B12) [Mass/Vol] 454 pg/mL 211-911 [facility] Work Phone: Globulin (S) [Mass/Vol] 4.2 g/dL 2.2-4.2 [facility] Work Phone: Urea nitrogen/Creatinine [Mass ratio] 23.1 mg/mg 10-20 [facility] Work Phone: Laboratory - Hematology and Cell countson 05-02-2022 Erythrocyte distribution width (RBC) [Entitic vol] 39.4 fL 35.1-43.9 [facility] Work Phone: Erythrocyte distribution width (RBC) [Ratio] 13.5 % 11.6-14.6 [facility] Work Phone: Immature granulocytes/100 WBC (Bld) 0.200 % 0.0-0.9 [facility] Work Phone: Comment on above: IG% - Immature Granu locytes (promyelocytes, myelocytes and metamyelocytes) > 1% indicates that a LEFT SHIFT is Present. MCH (RBC) [Entitic mass] 26.5 pg 27.0-32.0 [facility] Work Phone: Nucleated RBC/100 WBC (Bld) [Ratio] 0 % 0-5 [facility] Work Phone: MCHC Auto (RBC) [Mass/Vol]on 05-02-2022 MCHC (RBC) [Mass/Vol] 32.9 g/dL 32-36 [facility] Work Phone: No Panel Informationon 05-02 Estimated GFR (MDRD) Amer 167 mL/min >60 [facility] Work Phone: Comment on above: GFR Calc Estimated GFR (MDRD) Non-Af Amer 138 mL/min >60 [facility] Work Phone: Comment on above: Non- GFR Calc Total Iron Binding Capacity 388 ug/dL 250-450 [facility] Work Phone: Platelets bldon 05-02-2022 Platelets (Bld) [#/Vol] 347 10*3/uL 150-450 [facility] Work Phone: Serum or plasma albumin sarina urement (mass/volume)on 05-02-2022 Albumin [Mass/Vol] 2.8 g/dL 3.2-5.0 [facility] Work Phone: Serum or plasma albumin/glob ulin mass ratioon 05-02-2022 Albumin/Globulin [Mass ratio] 0.7 {ratio} 0.9-2.4 [facility] Work Phone: Serum or plasma calcium sarina urement (mass/volume)on 05-02-2022 Calcium [Mass/Vol] 8.4 mg/dL 8.5-10.1 [facility] Work Phone: Serum or plasma cholesterol in HDL measurement (mass/volume)on 05-02-2022 Cholesterol in HDL [Mass/Vol] 59 mg/dL >40 [facility] Work Phone: Comment on above: The drugs N-Acetylcy steine and Metamizole may falsely depress this assay. Reference Range HDL <40 mg/dL Low HDL Cholesterol HDL >or= 60 mg/dL High HDL Cholesterol Serum or plasma cholesterol in VLDL measurement (mass/volume)on 05-02-2022 Cholesterol in VLDL [Mass/Vol] 34 mg/dL 5-40 [facility] Work Phone: Serum or plasma creatinine m easurement (mass/volume)on 05-02-2022 Creatinine [Mass/Vol] 0.56 mg/dL 0.55-1.02 [facility] Work Phone: Comment on above: The validity of the calculated GFR & GFRAA in patients over 70 years has not been determined. Clinical correlation is essential. Serum or plasma ferritin juvenal surement (mass/volume)on 05-02-2022 Ferritin [Mass/Vol] 31 ng/mL 8-252 [facility] Work Phone: Serum or plasma low density lipoprotein (LDL) cholesterol measurement (mass/volume)on 05-02-2022 Cholesterol in LDL [Mass/Vol] 142 mg/dL 0-130 [facility] Work Phone: Serum or plasma urea nitroge n measurement (mass/volume)on 05-02-2022 Urea nitrogen [Mass/Vol] 13 mg/dL 7-18 [facility] Work Phone: Thin prep Papanicolaou smear with manual screeningon 05-02-2022 Thin prep Papanicolaou smear with manual screening 8 U/L 15-37 [facility] Work Phone: Thin prep Papanicolaou smear with manual screening 8 5-15 [facility] Work Phone: GROUP A STREP, PCRon 11-14-2 022 S. pyogenes Ag Ql (Throat) Not detected See Below [facility] Work Phone: Comment on above: SOURCE: ThroatRefere nce Range: Not Detected This test was performed utilizing an FDA-cleared rapid nucleic acid amplification by PCR to qualitatively detect Group A Streptococci from throat swab specimens without the need for culture confirmation of negative results. GROUP A STREP,PCRon 04-11-20 22 GROUP A STREP,PCR Not detected Normal Not Detected [facility] Comment on above: Result Comment: This test was performed utilizing an FDA-cleared rapid nucleic acid amplification by PCR to qualitatively detect Group A Streptococci from throat swab specimens without the need for culture confirmation of negative results. Performed By: #### G APC1 #### [place] [address] Lab Specimen Source Throat Normal [facility] Comment on above: Performed By: #### G APC1 #### [address] [address] Provider Note - ED v3on 03-29 Provider [...] EVENTS: Past Medical History Description:COVID ( recovered) WELDER GUN: Is : no Is : no REVIEW [...] SIGNS: T PRBP SpO2O2(LPM) %FiO2 Method 11-Apr-2022 11:09:[id number] 97 [facility] MDM/ED COURSE: Discussed Findings with: patient [...] Electronic Signatures for Addendum Section: Kb Meyer (TRAVEL REGISTERED NURSE PACU-CAMP NURSE) (Signed Addendum 12-Apr-2022 09:08) VM left for pt to return call regarding strep test results. Electronic Signatures: Kb Meyer (TRAVEL REGISTERED NURSE PACU-CAMP NURSE) (Signed 12-Apr-2022 09:08) Authored: ED Notes, HPI, PMH, ROS, PE, Results/Vital Signs, MDM/ED Course, Clinical Impression, Attestation, Chart Review, Scores Last Updated: 12-Apr-2022 09:08 by Kb Meyer (TRAVEL REGISTERED NURSE PACU-CAMP NURSE) [facility] Established Visit [...] need a RF on tizanidine send to [facility] [place]. This is a 26-year-old female here for [...] mid way. Sensory/ Motor: Numbness, Pins and [place] and Bilat lower legs at ankles, feet [...] Colonoscopy History of Esophagogastroduodenosco py History of [place] tooth extraction Family History Family history of [...] mellitus (V18.0 (more content not included)... Normal [employer] Tobacco Screening.on 022 Adult depression screening assessment No [facility] Work Phone: Fall risk assessment a) No falls within the last year [facility] Work Phone: Tobacco use status [facility] b) No M [facility] Work Phone: [phone] Tobacco Screening.on 022 Fall risk assessment a) No falls within the last year [facility] Medicine Work Phone: Tobacco use status [facility] b) No M [facility] Work Phone: Tobacco Screening.on 021 Fall risk assessment a) No falls within the last year [facility] Work Phone: Tobacco use status [facility] b) No M [facility] Work Phone: Tobacco Screening.on 021 Fall risk assessment a) No falls within the last year [facility] Work Phone: Tobacco use status [facility] b) No M [facility] Work Phone: No Panel Informationon 05-07 [email or web address]?RetrieveTestByDateTim e?PbljvoxQS=[email or web address]&Da te=03-09-2021&Time=01%3a 07%3a34%3a00&TestType=EC G&Site=14&OutputType=PDF &Ext=PDF [facility] Work Phone: Please see physicia n note for formal interpretation confirmed by Scribe [facility] Work Phone: Normal [facility] Work Phone: [phone] [facility] Work Phone: [phone] 1 [facility] Work Phone: [phone] 1 [facility] Work Phone: [phone] [facility] Work Phone: 13 1 [facility] Work Phone: 14 1 [facility] Work Phone: 19 1 [facility] Work Phone: 75 1 [facility] Work Phone: [phone] [facility] Work Phone: [phone] [facility] Work Phone: [phone] 76 1 [facility] Work Phone: [phone] 160 1 [facility] Work Phone: [phone] 1 [facility] Work Phone: Radiologyon 05-07-2021 XR Chest 2 Views Please click on the link to view the study images Normal [facility] Work Phone: Tobacco Screening.on 021 Fall risk assessment a) No falls within the last year [facility] Work Phone: Tobacco use status CP b) No M [facility] Work Phone: Hemoglobin A1Con 03-24-2021 Glucose [Mass/Vol] 103 mg/dL [facility] Work Phone: HbA1c (Bld) [Mass fraction] 5.2 % [facility] Work Phone: Comment on above: Diagnosis of Diabete s-Adults Non-Diabetic: < or = 5.6% Increased risk for developing diabetes: 5.7-6.4% Diagnostic of diabetes: > or = 6.5%. Monitoring of Diabetes Age (y) Therapeutic Goal (%) Adults: >18 <7.0 Pediatrics: 13-18 <7.5 7-12 <8.0 0- 6 7.5-8.5 [place] [employer]. Diabetes Care 33(S1), May 2009. Laboratory - Chemistry and C hemistry - challengeon 03-24-2021 Albumin BCP dye [Mass/Vol] 3.6 g/dL 3.4 - 5.0 [facility] Work Phone: ALP [Catalytic activity/Vol] 86 U/L 33 - 110 [facility] Work Phone: ALT With P-5'-P [Catalytic activity/Vol] 13 U/L 7 - 45 [facility] Work Phone: Comment on above: Patients treated wit h Sulfasalazine may generate falsely decreased results for ALT. Anion gap [Moles/Vol] 12 mmol/L 10 - 20 [facility] Work Phone: AST With P-5'-P [Catalytic activity/Vol] 9 U/L 9 - 39 [facility] Work Phone: Bilirubin [Mass/Vol] 0.4 mg/dL 0.0 - 1.2 [facility] Work Phone: Calcium [Mass/Vol] 9.0 mg/dL 8.6 - 10.3 [facility] Work Phone: Chloride [Moles/Vol] 106 mmol/L 98 - 107 [facility] Work Phone: CO2 [Moles/Vol] 23 mmol/L 21 - 32 [facility] Work Phone: Creatinine [Mass/Vol] 0.54 mg/dL See Below [facility] Work Phone: Comment on above: Reference Range: 0.5 0 - 1.05 Glucose [Mass/Vol] 79 mg/dL 74 - 99 [facility] Work Phone: Potassium [Moles/Vol] 4.0 mmol/L 3.5 - 5.3 [facility] Work Phone: Protein [Mass/Vol] 6.8 g/dL 6.4 - 8.2 [facility] Work Phone: Sodium [Moles/Vol] 137 mmol/L 136 - 145 [facility] Work Phone: Urea nitrogen [Mass/Vol] 11 mg/dL 6 - 23 [facility] Work Phone: Lipid Panelon 03-24-2021 Cholesterol [Mass/Vol] 223 mg/dL above hig h threshold 0 - 199 [facility] Work Phone: Comment on above: . AGE [...] dosing. Cholesterol in HDL [Mass/Vol] 57.0 mg/dL [facility] Work Phone: Comment on above: . AGE VERY LOW LOW N ORMAL HIGH 0-19 Y < 35 < 40 40-45 ---- 20-24 Y ---- < 40 >45 ---- >24 Y ---- < 40 40-60 >60. Cholesterol in LDL [Mass/Vol] 138 mg/dL above high threshold 0 - 119 [facility] Work Phone: Comment on above: . NEAR BORD AGE RONALD RABLE OPTIMAL HIGH HIGH VERY HIGH 0-19 Y 0 - 109 --- 110-129 >/= 130 ---- 20-24 Y 0 - 119 --- 120-159 >/= 160 ---- >24 Y 0 - 99 100-129 130-159 160-189 >/=190. Cholesterol.total/Carmel sterol in HDL [Mass ratio] 3.9 {ratio} [facility] Work Phone: Comment on above: REF VALUESDESIRABLE < 3.4HIGH RISK > 5.0 Triglyceride [Mass/Vol] 138 mg/dL 0 - 149 [facility] Internal Medicine Work Phone: Comment on above: [...] Lipid Panel 28 mg/dL 0 - 40 [facility] Work Phone: No Panel Informationon 03-24 >60 >60 [facility] Work Phone: Comment on above: CALCULATIONS OF SÁNCHEZ MATED GFR ARE PERFORMED USING THE MDRD STUDY EQUATION FOR THE IDMS-TRACEABLE CREATININE METHODS. CLIN CHEM 2007;53:766-72 Vitamin B12, Serumon 021 Cobalamin (Vitamin B12) [Mass/Vol] 437 pg/mL 211 - 911 [facility] Work Phone: MRI L Spine without Contrast on 12-25-2020 MR Lumbar spine WO contrast Normal [facility] Work Phone: POCT URINALYSIS DIPSTICK AUT OMATED W/O SCOPOrdered By: Zenia Falcon on 12-02-2020 Amorphous sediment LM Ql (Urine sed) [facility] Appearance (U) cloudy [facility] Bacteria LM Ql (Urine sed) [facility] Bilirubin Ql (U) Negative [facility] Casts LM.LPF (Urine sed) [#/Area] [facility] Color (U) brown [facility] Crystals LM Nom (Urine sed) [facility] Epithelial cells.squamous LM.HPF (Urine sed) [#/Area] [facility] Flow cytometry specialist review [place] (Unsp spec) [Interp] [facility] Glucose Auto test strip (U) [Mass/Vol] Negative mg/dL [facility] Ketones [Mass/Vol] Negative mg/dL [facility] Leukocyte esterase Qn (U) [facility] Leukocyte esterase Test strip Ql (U) trace [facility] Nitrite Ql (U) Negative [facility] pH (U) 5.5 [pH] [facility] Protein Ql (U) 100 mg/dL [facility] RBC LM.HPF (Urine sed) [#/Area] [facility] RBC Ql (U) large [facility] Specific gravity (U) [Rel density] >=1.030 [facility] Transitional cells LM Ql (Urine sed) [facility] Urobilinogen Qn (U) 0.2 [facility] WBC LM.HPF (Urine sed) [#/Area] [facility] Internal controls OK [facility] Metabolic Panelon 09-18-2019 ALP [Catalytic activity/Vol] 80 U/L 33 - 110 [facility] Work Phone: Anion gap [Moles/Vol] 10 mmol/L 10 - 20 [facility] Work Phone: Bilirubin [Mass/Vol] 0.4 mg/dL 0.0 - 1.2 [facility] Internal Medicine Work Phone: Calcium [Mass/Vol] 8.7 mg/dL 8.6 - 10.3 [facility] Medicine Work Phone: Chloride [Moles/Vol] 107 mmol/L 98 - 107 [facility] Internal Medicine Work Phone: CO2 [Moles/Vol] 25 mmol/L 21 - 32 [facility] Internal Medicine Work Phone: Creatinine [Mass/Vol] 0.54 mg/dL See Below [facility] Internal Medicine Work Phone: Comment on above: Reference Range: 0.5 0 - 1.05 Glucose [Mass/Vol] 109 mg/dL above high threshold 74 - 99 [facility] Internal Medicine Work Phone: Potassium [Moles/Vol] 4.1 mmol/L 3.5 - 5.3 [facility] Internal Medicine Work Phone: Protein [Mass/Vol] 6.7 g/dL 6.4 - 8.2 [facility] Work Phone: Sodium [Moles/Vol] 138 mmol/L 136 - 145 [facility] Work Phone: Urea nitrogen [Mass/Vol] 14 mg/dL 6 - 23 [facility] Work Phone: Otheron 09-18-2019 Albumin BCP dye [Mass/Vol] 3.7 g/dL 3.4 - 5.0 [facility] Work Phone: ALT With P-5'-P [Catalytic activity/Vol] 12 U/L 7 - 45 [facility] Work Phone: Comment on above: Patients treated wit h Sulfasalazine may generate falsely decreased results for ALT. AST With P-5'-P [Catalytic activity/Vol] 11 U/L 9 - 39 [facility] Work Phone: >60 >60 [facility] Work Phone: Comment on above: CALCULATIONS OF SÁNCHEZ MATED GFR ARE PERFORMED USING THE MDRD STUDY EQUATION FOR THE IDMS-TRACEABLE CREATININE METHODS. CLIN CHEM 2007;53:766-72 T4 - [facility] Free T4 [Mass/Vol] 0.65 ng/dL See Below [facility] Work Phone: Comment on above: Reference Range: 0.6 1 - 1.12 Thyroxine Free testing is performed using different testing methodology at [facility] than at other [facility]. Direct result comparisons should only be [...] 09-18-2019 TSH Qn 3.68 {mIU/L} See Below [facility] Work Phone: Comment on above: Reference Range: 0.4 4 - 3.98 Note new pediatric reference range as of 08/01/2019. TSH testing is performed using different testing methodology at [facility] than at other [facility]. Direct result comparisons should only be made within the same method. Vitamin B12, Serumon 020 Cobalamin (Vitamin B12) [Mass/Vol] 212 pg/mL 211 - 911 [facility] Internal Medicine Work Phone: BMPon 09-07-2018 Anion gap molar conc 10 mmol/L Normal 10-20 [facility] Comment on above: Performed By: #### 2 [id number] #### JEAN CARLOS RemHemo [address] [place] [address] Calcium mass conc 8.6 mg/dL Normal 8.6-10.3 [facility] Comment on above: Performed By: #### 2 [id number] #### JEAN CARLOS RemHemo [address] [place] [address] Chloride molar conc 106 mmol/L Normal 98-107 [facility] Comment on above: Performed By: #### 2 [id number] #### JEAN CARLOS Rem[employer]emo [address] [place] [address] CO2 molar conc 25.0 mmol/L Normal 21.0-32.0 [facility] Comment on above: Performed By: #### 2 [id number] #### JEAN CARLOS RemHemo [address] [place] [address] Creatinine mass conc 0.6 mg/dL Normal 0.5-1.1 [facility] Comment on above: Performed By: #### 2 [id number] #### JEAN CARLOS Rem[employer] [address] [place] [address] Glucose mass conc 100 mg/dL High 70-99 [facility] Comment on above: Performed By: #### 2 440709 #### JEAN CARLOS Rem[employer] [address] [place] [address] Potassium molar conc 4.0 mmol/L Normal 3.5-5.3 [facility] Comment on above: Performed By: #### 2 585634 #### JEAN CARLOS Rem[employer] [address] [place] [address] Sodium molar conc 137 mmol/L Normal 136-145 [facility] Comment on above: Performed By: #### 2 [id number] #### JEAN CARLOS [employer] [address] [place] [id number] Urea nitrogen mass conc 13 mg/dL Normal 6-23 [facility] Comment on above: Performed By: #### 2 [id number] #### JEAN CARLOS [employer] [address] [place] [address] Urea nitrogen/Creatinine mass ratio 21.7 ratio Normal 5.4-30.0 [facility] Comment on above: Performed By: #### 2 [id number] #### JENA CARLOS [facility]unn[facility] [place] [address] [id number] 09-07-2018 Hemoglobin A1c/Hemoglobin.total mass fraction (Bld) 5.1 % Normal 4.0-6.3 [facility] Comment on above: Performed By: #### 2 551750 #### JEAN CARLOS Rodriguezo [address] [place] [address] eGFRon 09-07-2018 GFR/1.73 sq M predicted among non-blacks MDRD vol rate/area (S/P/Bld) mL/min/{1.73_m2} Normal [facility] Comment on above: Order Comment: Order added by Discern Expert. Performed By: #### 2 [id number] #### JEAN CARLOS [facility] [address] [place], [place] [id number] Auto Diffon 06-22-2018 Basophils #/vol (Bld) 0.1 E3/mcL Normal 0.0-0.2 [facility] Comment on above: Order Comment: Order Added by Discern Expert. Performed By: #### 2 [id number] #### JEAN CARLOS [employer] [address] [place] [id number] Basophils/100 WBC (Bld) 0.8 % Normal 0.0-2.0 [facility] Comment on above: Order Comment: Order Added by Discern Expert. Performed By: #### 2 773366 #### JEAN CARLOS [employer] [address] [place] [phone] Eos Absolute 0.2 E3/mcL Normal 0.0-0.7 [facility] Comment on above: Order Comment: Order Added by Discern Expert. Performed By: #### 2 241386 #### JEAN CARLOS Rem[employer]emo [address] [place] [address] Eosinophils/100 WBC (Bld) 2.6 % Normal 0.0-11.0 [facility] Comment on above: Order Comment: Order Added by Discern Expert. Performed By: #### 2 157668 #### JEAN CARLOS Rem[employer]emo [address] [place] [address] Lymphocytes #/vol (Bld) 2.5 E3/mcL Normal 1.2-3.4 [facility] Comment on above: Order Comment: Order Added by Discern Expert. Performed By: #### 2 738818 #### JEAN CARLOS Rem[employer] [address] [place] [address] Lymphocytes/100 WBC (Bld) 27.2 % Normal 20.0-55.0 [facility] Comment on above: Order Comment: Order Added by Discern Expert. Performed By: #### 2 550859 #### JEAN CARLOS Rem[employer] [address] [place] [address] Forrest Absolute 0.5 E3/mcL Normal 0.0-0.7 [facility] Comment on above: Order Comment: Order Added by Discern Expert. Performed By: #### 2 035327 #### JEAN CARLOS [employer] [address] [place] [address] Monocytes/100 WBC (Bld) 5.1 % Normal 0.0-10.0 [facility] Comment on above: Order Comment: Order Added by Discern Expert. Performed By: #### 2 641860 #### JEAN CARLOS Rem[employer]emo [address] [place] [address] Neutro Absolute 6.0 E3/mcL Normal 1.4-6.5 [facility] Comment on above: Order Comment: Order Added by Discern Expert. Performed By: #### 2 277994 #### JEAN CARLOS RemHemo [address] [place] [address] Neutro Auto 64.3 % Normal 37.0-75.0 [facility] Comment on above: Order Comment: Order Added by Discern Expert. Performed By: #### 2 335846 #### JEAN CARLOS RemHemo [address] [place] [address] CBC w/ Auto Diffon Erythrocyte distribution width Ratio (RBC) 14.6 % High 11.5-14.5 [facility] Comment on above: Performed By: #### 2 306299 #### JEAN CARLOS [facility]unn[facility] [place] [address] Hematocrit Volume Fraction (Bld) 37.5 % Normal 36.0-48.0 [facility] Comment on above: Performed By: #### 2 112898 #### JEAN CARLOS [facility]unn[employer] [facility] [place] [address] Hemoglobin mass conc (Bld) 12.5 g/dL Normal 12.0-16.0 [facility] Comment on above: Performed By: #### 2 189890 #### JEAN CARLOS Bunn[employer] [address] [place], [place] [address] MCH Entitic mass (RBC) 27.3 pg Normal 27.0-31.0 [facility] Comment on above: Performed By: #### 2 676929 #### JEAN CARLOS Bunn[employer] [address] [place], [place] [address] MCHC mass conc (RBC) 33.4 g/dL Normal 33.0-37.0 [facility] Comment on above: Performed By: #### 2 017377 #### JEAN CARLOS Bunn[employer]emo [address] [place], [place] [address] MCV Entitic volume (RBC) 81.8 fL Normal 78.0-100.0 [facility] Comment on above: Performed By: #### 2 219288 #### JEAN CARLOS BunnHemo [address] [place], [place] [address] Platelet mean volume Entitic volume (Bld) 9.9 fL Normal 7.4-11.0 [facility] Comment on above: Performed By: #### 2 350120 #### JEAN CARLOSKatrina BunnHemo [facility] [place] [address] Platelets #/vol (Bld) 276 E3/mcL Normal 130-400 [facility] Comment on above: Performed By: #### 2 550976 #### JEAN CARLOS RemHemo [facility] [place] [address] RBC #/vol (Bld) 4.59 E6/mcL Normal 3.90-5.40 [facility] Comment on above: Performed By: #### 2 894616 #### JEAN CARLOS Rodriguez[address] [address] WBC #/vol (Bld) 9.3 E3/mcL Normal 3.6-11.0 [facility] Comment on above: Performed By: #### 2 094766 #### JEAN CARLOS Rodriguez[address] [address] CMPon 06-22-2018 Albumin mass conc 4.0 g/dL Normal 3.4-5.0 [facility] Comment on above: Performed By: #### 2 659241 #### JEAN CARLOSKatrina Rodriguez[address] [address] Albumin/Globulin mass ratio 1.3 {ratio} Normal 1.1-1.9 [facility] Comment on above: Performed By: #### 2 214933 #### JEAN CARLOS Rodriguezo [address] [place] [address] Alk Phos 66 Int._Unit/L Normal 33-110 [facility] Comment on above: Performed By: #### 2 824767 #### JEAN CARLOSKatrina Rodriguezo [address] [place] [address] ALT enzyme act/vol 16 Int._Unit/L Normal 7-45 [facility] Comment on above: Performed By: #### 2 869875 #### JEAN CARLOS Rodriguezo [facility] [place] [address] Anion gap molar conc 12 mmol/L Normal 10-20 [facility] Comment on above: Performed By: #### 2 991687 #### JEAN CARLOS Bunn[facility]emo [address] [place] [address] AST enzyme act/vol 10 Int._Unit/L Normal 9-39 [facility] Comment on above: Performed By: #### 2 530765 #### JEAN CARLOSKatrina Rodriguezo [address] [place] [address] Bili Total 0.32 mg/dL Normal 0.00-1.20 [facility] Comment on above: Performed By: #### 2 241232 #### JEAN CARLOS BunnHemo [address] [place] [address] Calcium mass conc 9.1 mg/dL Normal 8.6-10.3 [facility] Comment on above: Performed By: #### 2 591442 #### JEAN CARLOS BunnHemo [address] [place] [address] Chloride molar conc 108 mmol/L High 98-107 [facility] Comment on above: Performed By: #### 2 484207 #### JEAN CARLOS BunnHemo [address] [place] [address] CO2 molar conc 22.0 mmol/L Normal 21.0-32.0 [facility] Comment on above: Performed By: #### 2 363528 #### JEAN CARLOS BunnHemo [address] [place] [address] Creatinine mass conc 0.6 mg/dL Normal 0.5-1.1 [facility] Comment on above: Performed By: #### 2 267925 #### JEAN CARLOS BunnHemo [address] [place] [address] Globulin mass conc (S) 3.0 g/dL Normal 2.0-4.0 [facility] Comment on above: Performed By: #### 2 529083 #### JEAN CARLOS Bunn[facility]emo [address] [place] [address] Glucose mass conc 105 mg/dL High 70-99 [facility] Comment on above: Performed By: #### 2 179543 #### JEAN CARLOS BunnHemo [address] [place] [address] Potassium molar conc 3.7 mmol/L Normal 3.5-5.3 [facility] Comment on above: Performed By: #### 2 486085 #### JEAN CARLOS BunnHemo [address] [place] [address] Protein mass conc 7.0 g/dL Normal 6.4-8.2 [facility] Comment on above: Performed By: #### 2 946685 #### JEAN CARLOS RemHemo [address] [place] [address] Sodium molar conc 138 mmol/L Normal 136-145 [facility] Comment on above: Performed By: #### 2 229406 #### JEAN CARLOS BunnHemo [address] [place] [address] Urea nitrogen mass conc 10 mg/dL Normal 6-23 [facility] Comment on above: Performed By: #### 2 536295 #### JEAN CARLOS BunnHemo [address] [place] [address] Urea nitrogen/Creatinine mass ratio 16.7 ratio Normal 5.4-30.0 [facility] Comment on above: Performed By: #### 2 290313 #### JEAN CARLOS BunnHemo [address] [place] [address] Vit B12on 06-22-2018 Cobalamin (Vitamin B12) mass conc 326 pg/mL Normal 180-914 [facility] Comment on above: Performed By: #### 2 264691 #### JEAN CARLOS Rodriguezo [facility] [place] [address] eGFRon 06-22-2018 GFR/1.73 sq M predicted among non-blacks MDRD vol rate/area (S/P/Bld) mL/min/{1.73_m2} Normal [facility] Comment on above: Order Comment: Order added by Discern Expert. Performed By: #### 2 284662 #### JEAN CARLOS Callahan [facility] [place] [address] XR Foot 2 Views Lefton 01-12 XR Foot 2 Views Left Exam Date/Time: 01/11/2018 15:29 EDT Reason for Exam: Pain, Non Traumatic Report STUDY: XR Foot 2 Views Left; 01/11/2018 3:29 pm INDICATION: Pain, Non Traumatic. COMPARISON: None. ACCESSION NUMBER(S): [id number] ORDERING CLINICIAN: Nirali Portillo TECHNIQUE: 2 views [...] by: Dagoberto Morrison MD Technologist: GLP Normal [facility] Auto Diffon 11-22-2017 Basophils #/vol (Bld) 0.1 E3/mcL Normal 0.0-0.2 [facility] Comment on above: Order Comment: Order Added by Discern Expert. Performed By: #### 2 032512 #### JEAN CARLOS RemHemo [address] [place] [address] Basophils/100 WBC (Bld) 0.6 % Normal 0.0-2.0 [facility] Comment on above: Order Comment: Order Added by Discern Expert. Performed By: #### 2 578408 #### JEAN CARLOS RemHemo [address] [place] [address] Eos Absolute 0.0 E3/mcL Normal 0.0-0.7 [facility] Comment on above: Order Comment: Order Added by Carmenza Expert. Performed By: #### 2 855616 #### JEAN CARLOS RemHemo [address] [place] [address] Eosinophils/100 WBC (Bld) 0.1 % Normal 0.0-11.0 [facility] Comment on above: Order Comment: Order Added by Carmenza Expert. Performed By: #### 2 647584 #### JEAN CARLOS RemHemo [address] [place] [address] Lymphocytes #/vol (Bld) 2.1 E3/mcL Normal 1.2-3.4 [facility] Comment on above: Order Comment: Order Added by Discern Expert. Performed By: #### 2 936159 #### JEAN CARLOS RemHemo [address] [place] [address] Lymphocytes/100 WBC (Bld) 14.3 % Low 20.0-55.0 [facility] Comment on above: Order Comment: Order Added by Discern Expert. Performed By: #### 2 614703 #### JEAN CARLOS RemHemo [address] [place] [address] Forrest Absolute 0.4 E3/mcL Normal 0.0-0.7 [facility] Comment on above: Order Comment: Order Added by Carmenza Expert. Performed By: #### 2 598945 #### JEAN CARLOS RemHemo [address] [place] [address] Monocytes/100 WBC (Bld) 3.0 % Normal 0.0-10.0 [facility] Comment on above: Order Comment: Order Added by Discern Expert. Performed By: #### 2 385073 #### JEAN CARLOS RemHemo [address] [place] [address] Neutro Absolute 11.8 E3/mcL High 1.4-6.5 [facility] Comment on above: Order Comment: Order Added by Discern Expert. Performed By: #### 2 236883 #### JEAN CARLOS RemHemo [address] [place] [address] Neutro Auto 82.0 % High 37.0-75.0 [facility] Comment on above: Order Comment: Order Added by Discern Expert. Performed By: #### 2 392382 #### JEAN CARLOS BunnHemo [address] [place] [address] CBC w/ Auto Diffon 8 Erythrocyte distribution width Ratio (RBC) 14.2 % Normal 11.5-14.5 [facility] Comment on above: Performed By: #### 2 927350 #### JEAN CARLOS RemHemo [address] [place] [address] Hematocrit Volume Fraction (Bld) 37.9 % Normal 36.0-48.0 [facility] Comment on above: Performed By: #### 2 338344 #### JEAN CARLOS BunnHemo [address] [place] [address] Hemoglobin mass conc (Bld) 12.7 g/dL Normal 12.0-16.0 [facility] Comment on above: Performed By: #### 2 831074 #### JEAN CARLOS RemHemo [address] [place] [address] MCH Entitic mass (RBC) 27.3 pg Normal 27.0-31.0 [facility] Comment on above: Performed By: #### 2 909147 #### JEAN CARLOS RemHemo [address] [place] [address] MCHC mass conc (RBC) 33.5 g/dL Normal 33.0-37.0 [facility] Comment on above: Performed By: #### 2 873670 #### JEAN CARLOS RemHemo [address] [place] [address] MCV Entitic volume (RBC) 81.5 fL Normal 78.0-100.0 [facility] Comment on above: Performed By: #### 2 703912 #### JEAN CARLOS Rodriguezo [address] [place] [address] Platelet mean volume Entitic volume (Bld) 9.7 fL Normal 7.4-11.0 [facility] Comment on above: Performed By: #### 2 766438 #### JEAN CARLOS BunnHemo [facility] [place] [address] Platelets #/vol (Bld) 346 E3/mcL Normal 130-400 [facility] Comment on above: Performed By: #### 2 580944 #### JEAN CARLOSKatrina BunnHemo [facility] [place] [address] RBC #/vol (Bld) 4.65 E6/mcL Normal 3.90-5.40 [facility] Comment on above: Performed By: #### 2 605422 #### JEAN CARLOSKatrina BunnHemo [address] [place], [place] [address] WBC #/vol (Bld) 14.4 E3/mcL High 3.6-11.0 [facility] Comment on above: Performed By: #### 2 338265 #### JEAN CARLOS BunnHemo [address] [place], [place] [address] CMPon 11-22-2017 Albumin mass conc 3.8 g/dL Normal 3.2-5.0 [facility] Comment on above: Performed By: #### 2 404603 #### JEAN CARLOS Em [address] [place] [address] Albumin/Globulin mass ratio 1.0 {ratio} Low 1.1-1.9 [facility] Comment on above: Performed By: #### 2 732325 #### JEAN CARLOS BunnNabeel [facility] [place] [address] Alk Phos 78 Int._Unit/L Normal 42-121 [facility] Comment on above: Performed By: #### 2 682106 #### JEAN CARLOSKatrina BunnNabeel [facility] [place] [address] ALT enzyme act/vol 30 Int._Unit/L Normal 10-40 [facility] Comment on above: Performed By: #### 2 762888 #### JEAN CARLOS [employer] [address] [place] [address] AST enzyme act/vol 23 Int._Unit/L Normal 10-42 [facility] Comment on above: Performed By: #### 2 048803 #### JEAN CARLOS [employer] [address] [place] [address] Bili Total 0.4 mg/dL Normal 0.2-1.0 [facility] Comment on above: Performed By: #### 2 453819 #### JEAN CARLOS [employer] [address] [place] [address] Creatinine mass conc 0.6 mg/dL Normal 0.6-1.3 [facility] Comment on above: Performed By: #### 2 449091 #### JEAN CARLOS [employer] [address] [place] [address] Globulin mass conc (S) 4.0 g/dL Normal 2.0-4.0 [facility] Comment on above: Performed By: #### 2 563989 #### JEAN CARLOS [employer] [address] [place] [address] Protein mass conc 7.8 g/dL Normal 6.4-8.3 [facility] Comment on above: Performed By: #### 2 117873 #### JEAN CARLOS [employer] [address] [place] [address] Urea nitrogen mass conc 12 mg/dL Normal 7-18 [facility] Comment on above: Performed By: #### 2 069484 #### JEAN CARLOS [employer] [address] [place] [address] Urea nitrogen/Creatinine mass ratio 20.0 ratio Normal 5.4-30.0 [facility] Comment on above: Performed By: #### 2 918490 #### JEAN CARLOS [employer] [address] [place] [address] Calcium mass conc 9.1 mg/dL Normal 8.4-10.2 [facility] Comment on above: Performed By: #### 2 997362 #### JEAN CARLOS [employer] [address] [place] [address] Chloride molar conc 103 mmol/L Normal 98-107 [facility] Comment on above: Performed By: #### 2 424793 #### JEAN CARLOS [employer] [address] [place] [address] CO2 molar conc 25.4 mmol/L Normal 24.0-30.0 [facility] Comment on above: Performed By: #### 2 567764 #### JEAN CARLOS [employer] [address] [place] [address] Glucose mass conc 111 mg/dL High 70-99 [facility] Comment on above: Performed By: #### 2 943920 #### JEAN CARLOS [employer] [address] [place] [address] Potassium molar conc 3.9 mmol/L Normal 3.5-5.1 [facility] Comment on above: Performed By: #### 2 252706 #### JEAN CARLOS [employer] [address] [place] [address] Sodium molar conc 137 mmol/L Normal 136-145 [facility] Comment on above: Performed By: #### 2 644471 #### JEAN CARLOS [employer] [address] [place] [address] Ferritinon 11-22-2017 Ferritin mass conc 49.3 ng/mL Normal 11.0-306.8 [facility] Comment on above: Performed By: #### 2 732411 #### JEAN CARLOS [employer] [address] [place], [place] [address] [id number] 11-22-2017 Hemoglobin A1c/Hemoglobin.total mass fraction (Bld) 5.0 % Normal 4.0-6.3 [facility] Comment on above: Performed By: #### 3 [id number] #### JEAN CARLOS Chemistry Manual Subsection [address] [place] [address] Ironon 11-22-2017 Iron mass conc 49 microgram/dL Normal 35-155 [facility] Comment on above: Performed By: #### 2 354394 #### JEAN CARLOS [employer] [address] [place] [address] US Abdomen, Limitedon 2017 US Abdomen, Limited Exam Date/Time: 11/22/2017 07:31 EDT Reason for Exam: DARK TARRY STOOLS NAUSEA RIGHT UPPER QUAD PAIN DYSPEPSIA;Abdominal pain Report STUDY: US Abdomen, Limited; 11/22/2017 7:31 am INDICATION: Abdominal pain. COMPARISON: None. ACCESSION NUMBER(S): [id number] ORDERING CLINICIAN: ASHLYN GATES TECHNIQUE: Multiple images [...] by: Tang Kessler MD Technologist: KD Normal [facility] Vit B12on 11-22-2017 Cobalamin (Vitamin B12) mass conc 419 pg/mL Normal 180-914 [facility] Comment on above: Performed By: #### 2 133445 #### JEAN CARLOS [employer] [address] [place] [address] eGFRon 11-22-2017 GFR/1.73 sq M predicted among non-blacks MDRD vol rate/area (S/P/Bld) mL/min/{1.73_m2} Normal [facility] Comment on above: Order Comment: Order added by Discern Expert. Performed By: #### 1 [id number] #### JEAN CARLOS [employer] [address] [address] JOCELYN Teston 11-17-2017 JOCELYN Test Negative Normal Negative [facility] Comment on above: Performed By: #### 8 [id number] #### JEAN CARLOS [facility] Micro SubSection , Pathology ([facility])on 04-27-2017 Pathology ([facility]) FINAL GYNECOLOGIC CYTOLOGY [id number] ADEQUACYSatisfactory for Evaluation. No endocervical cells/transformation zonecomponent present.GENERAL CATEGORIZATIONNegative for Intraepithelial Lesion or MalignancyDESCRIPTIVE DIAGNOSISParakeratosis is present.COMMENTCytolysis present.CLINICAL HISTORYComment: No LMP provided.SPECIMEN(A) SCREENING CERVICAL/ENDOCERVICAL LIQUID-BASED PAPPerformed at [facility], [address] [place], [place] [address]Kjcdognn by: ARBEN TAVERAS Head Stock Operator Signed Out by: ARACELI FINNEGAN M.D. Reported: 05/02/2017 Normal [facility] Comment on above: Performed By: #### G YRandolph ####[facility] [id number] [place] [address] Vital Signs Date Time Vital Sign Value Performing Clinician Facility 01-29-2025 15: Body height 165.1 cm Ashlyn LOPEZ-C Work Phone: [facility] 01-29-2025 15:09040 Body mass index (BMI) [Ratio] 66.23 kg/m2 Ashlyn Gates PA-C Work Phone: [facility] 01-29-2025 15:040 Body weight 180.53 kg Ashlyn Gates PA-C Work Phone: [facility] 01-29-2025 15:09040 Diastolic blood pressure 85 mm[Hg] Ashlyn Gates PA-C Work Phone: [facility] 01-29-2025 15:09040 Heart rate 76 /min Ashlyn Gates PA-C Work Phone: [facility] 01-29-2025 15:09040 Systolic blood pressure 138 mm[Hg] Ashlyn Yajaira PA-C Work Phone: [facility] 10-30-2024 13:13-0400 Body height 165.1 cm Ashlynphylicia Walkerall PA-C Work Phone: [facility] 10-30-2024 13:13-0400 Body mass index (BMI) [Ratio] 65 kg/m2 Ashlyn Yajaira PA-C Work Phone: [facility] 10-30-2024 13:13-0400 Body weight 177.18 kg Ashlyn Yajaira PA-C Work Phone: [facility] 10-30-2024 13:13-0400 Diastolic blood pressure 85 mm[Hg] Ashlyn Yajaira PA-C Work Phone: [facility] 10-30-2024 13:13-0400 Heart rate 79 /min Ashlyn Tuttle PA-C Work Phone: [facility] 10-30-2024 13:13-0400 SaO2% (BldA) [Mass fraction] 94 % Ashlyn Yajaira PA-C Work Phone: [facility] 10-30-2024 13:13-0400 Systolic blood pressure 140 mm[Hg] Ashlyn Yajaira PA-C Work Phone: [facility] 09-11-2024 09:24-0400 Body height 165.1 cm Ashlynphylicia Walkerall PA-C Work Phone: [facility] 09-11-2024 09:24-0400 Body mass index (BMI) [Ratio] 63.83 kg/m2 Ashlyn Tuttle PA-C Work Phone: [facility] 09-11-2024 09:24-0400 Body weight 174 kg Ashlyn Yajaira PA-C Work Phone: [facility] 09-11-2024 09:24-0400 Diastolic blood pressure 82 mm[Hg] Ashlyn Yajaira PA-C Work Phone: [facility] 09-11-2024 09:24-0400 Heart rate 74 /min Ashlyn Tuttle PA-C Work Phone: [facility] 09-11-2024 09:24-0400 SaO2% (BldA) [Mass fraction] 95 % Ashlyn Yajaira PA-C Work Phone: [facility] 09-11-2024 09:24-0400 Systolic blood pressure 129 mm[Hg] Ashlyn Yajaira PA-C Work Phone: [facility] 08-15-2024 09:49-0400 Body height 165.1 cm Ashlyn Tuttle PA Work Phone: [facility] 08-15-2024 09:49-0400 Body mass index (BMI) [Ratio] 59.9 kg/m2 Ashlyn Yajaira PA Work Phone: [facility] 08-15-2024 09:49-0400 Body weight 163.29 kg Ashlyn Tuttle PA Work Phone: [facility] 08-15-2024 09:49-0400 Diastolic blood pressure 88 mm[Hg] Ashlyn Yajaira PA Work Phone: [facility] 08-15-2024 09:49-0400 Heart rate 68 /min Ashlyn Tuttle PA Work Phone: [facility] 08-15-2024 09:49-0400 Respiratory rate 18 /min Ashlyn Yajaira PA Work Phone: [facility] 08-15-2024 09:49-0400 Systolic blood pressure 138 mm[Hg] Ashlyn Tuttle PA Work Phone: [facility] 08-07-2024 08:52-0400 Body mass index (BMI) [Ratio] 63.04 kg/m2 Fabi Giraldo APRN-CAMP NURSE Work Phone: [employer] [facility] 08-07-2024 08:52-0400 Body weight 171.82 kg Fabi Kristal TRAVEL REGISTERED NURSE PACU-CAMP NURSE Work Phone: [facility] 08-07-2024 08:52-0400 Diastolic blood pressure 101 mm[Hg] Fabi Giraldo TRAVEL REGISTERED NURSE PACU-CAMP NURSE Work Phone: [facility] 08-07-2024 08:52-0400 Heart rate 114 /min Fabi Giraldo TRAVEL REGISTERED NURSE PACU-CAMP NURSE Work Phone: [facility] 08-07-2024 08:52-0400 Systolic blood pressure 134 mm[Hg] Fabi Giraldo TRAVEL REGISTERED NURSE PACU-CAMP NURSE Work Phone: [facility] 08-02-2024 09:01-0500 Body mass index (BMI) [Ratio] 59.9 kg/m2 Ashlyn Tuttle PA Work Phone: [facility] 08-02-2024 09:01-0500 Body weight 163.29 kg Ashlyn Tuttle PA Work Phone: [facility] 08-02-2024 09:01-0500 Diastolic blood pressure 72 mm[Hg] Ashlyn Tuttle PA Work Phone: [facility] 08-02-2024 09:01-0500 Heart rate 81 /min Ashlyn Yajaira PA Work Phone: [facility] 08-02-2024 09:01-0500 Respiratory rate 18 /min Ashlyn Yajaira PA Work Phone: [facility] 08-02-2024 09:01-0500 SaO2% (BldA) [Mass fraction] 95 % Ashlyn Yajaira PA Work Phone: [facility] 08-02-2024 09:01-0500 Systolic blood pressure 112 mm[Hg] Ashlyn Tuttle PA Work Phone: [facility] 08-01-2024 09:17-0500 Body temperature 97.8 [degF] Ashlyn Yajaira PA Work Phone: [facility] 08-01-2024 09:17-0500 Diastolic blood pressure 107 mm[Hg] Ashlyn Tuttle PA Work Phone: [facility] 08-01-2024 09:17-0500 Heart rate 101 /min Ashlyn Tuttle PA Work Phone: [facility] 08-01-2024 09:17-0500 Respiratory rate 14 /min Ashlyn Tuttle PA Work Phone: [facility] 08-01-2024 09:17-0500 SaO2% (BldA) [Mass fraction] 97 % Ashlyn Tuttle PA Work Phone: [facility] 08-01-2024 09:17-0500 Systolic blood pressure 146 mm[Hg] Ashlyn Yajaira PA Work Phone: [facility] 08-01-2024 06:41-0500 Body mass index (BMI) [Ratio] 28.5 kg/m2 Ashlyn Yajaira PA Work Phone: [facility] 08-01-2024 06:41-0500 Body weight 77.81 kg Ashlyn Yajaira PA Work Phone: [facility] 07-30-2024 13:07-0500 Body height 165.1 cm Desiree Sin MD Work Phone: [facility] 07-30-2024 13:07-0500 Body mass index (BMI) [Ratio] 62.9 kg/m2 Desiree Sin MD Work Phone: [facility] 07-30-2024 13:07-0500 Body weight 171.46 kg Desiree Sin MD Work Phone: [facility] 07-30-2024 13:07-0500 Diastolic blood pressure 87 mm[Hg] Desiree Sin MD Work Phone: [facility] 07-30-2024 13:07-0500 Heart rate 94 /min Desiree Sin MD Work Phone: [facility] 07-30-2024 13:07-0500 Systolic blood pressure 118 mm[Hg] Desiree Sin MD Work Phone: [facility] 07-24-2024 13:12-0500 Body temperature 99 [degF] Ashlyn Yajaira PA Work Phone: [facility] 07-24-2024 13:12-0500 Diastolic blood pressure 74 mm[Hg] Ashlyn Tuttle PA Work Phone: [facility] 07-24-2024 13:12-0500 Heart rate 120 /min Ashlyn Yajaira PA Work Phone: [facility] 07-24-2024 13:12-0500 Respiratory rate 16 /min Ashlyn Tuttle PA Work Phone: [facility] 07-24-2024 13:12-0500 SaO2% (BldA) [Mass fraction] 95 % Ashlyn Yajaira PA Work Phone: [facility] 07-24-2024 13:12-0500 Systolic blood pressure 121 mm[Hg] Ashlyn Tuttle PA Work Phone: [facility] 07-24-2024 04:54-0500 Body mass index (BMI) [Ratio] 63 kg/m2 Ashlyn Yajaira PA Work Phone: [facility] 07-24-2024 04:54-0500 Body weight 171.8 kg Ashlyn Tuttle PA Work Phone: [facility] 06-19-2024 14:12-0500 Body height 165.1 cm Ashlyn Tuttle PA-C Work Phone: [facility] 06-19-2024 14:12-0500 Body mass index (BMI) [Ratio] 62.64 kg/m2 Ashlyn Yajaira PA-C Work Phone: [facility] 06-19-2024 14:12-0500 Body weight 170.73 kg Ashlyn Tuttle PA-C Work Phone: [facility] 06-19-2024 14:12-0500 Diastolic blood pressure 89 mm[Hg] Ashlyn Gates PA-C Work Phone: [facility] 06-19-2024 14:12-0500 Heart rate 101 /min Ashlyn Gates PA-C Work Phone: [facility] 06-19-2024 14:12-0500 Systolic blood pressure 125 mm[Hg] Ashlyn LOPEZ-C Work Phone: [facility] 05-17-2024 09:37-0500 Body mass index (BMI) [Ratio] 62.7 kg/m2 Fabi Giraldo APRN-CAMP NURSE Work Phone: [facility] 05-17-2024 09:37-0500 Body weight 170.91 kg Fabi Giraldo APRN-CAMP NURSE Work Phone: [facility] 05-17-2024 09:37-0500 Diastolic blood pressure 85 mm[Hg] Fabi Giraldo TRAVEL REGISTERED NURSE PACU-CAMP NURSE Work Phone: [employer] [facility] 05-17-2024 09:37-0500 Heart rate 89 /min Fabi Giraldo APRN-CAMP NURSE Work Phone: [facility] 05-17-2024 09:37-0500 SaO2% (BldA) [Mass fraction] 97 % Fabi Giraldo APRN-CAMP NURSE Work Phone: [employer] [facility] 05-17-2024 09:37-0500 Systolic blood pressure 137 mm[Hg] Fabi Giraldo APRN-CAMP NURSE Work Phone: [employer] [facility] 04-10-2024 09:58-0500 Diastolic blood pressure 96 mm[Hg] Fabi Giraldo TRAVEL REGISTERED NURSE PACU-CAMP NURSE Work Phone: [employer] [facility] 04-10-2024 09:58-0500 Systolic blood pressure 142 mm[Hg] Fabi Giraldo TRAVEL REGISTERED NURSE PACU-CAMP NURSE Work Phone: [facility] 04-10-2024 09:45-0500 Body mass index (BMI) [Ratio] 62.7 kg/m2 Fabi Giraldo APRN-CAMP NURSE Work Phone: [employer] [facility] 04-10-2024 09:45-0500 Body weight 170.91 kg Fabi Giraldo APRN-CAMP NURSE [facility] 04-10-2024 09:45-0500 Heart rate 82 /min Fabi Giraldo APRN-CAMP NURSE Work Phone: [facility] [employer] [facility] 03-07-2024 13:54-0400 Diastolic blood pressure 88 mm[Hg] Fabi Giraldo TRAVEL REGISTERED NURSE PACU-CAMP NURSE Work Phone: [facility] 03-07-2024 13:54-0400 Systolic blood pressure 126 mm[Hg] Fabi Giraldo APRN-CAMP NURSE Work Phone: [facility] [employer] [facility] 03-07-2024 13:41-0400 Body height 165.1 cm Fabi Giraldo APRN-CAMP NURSE Work Phone: [employer] [facility] 03-07-2024 13:41-0400 Body mass index (BMI) [Ratio] 63.02 kg/m2 Fabi Giraldo APRN-CAMP NURSE Work Phone: [facility] [employer] [facility] 03-07-2024 13:41-0400 Body weight 171.78 kg Fabi Giraldo APRN-CAMP NURSE Work Phone: [facility] 03-07-2024 13:41-0400 Heart rate 96 /min Fabi Giraldo APRN-CAMP NURSE Work Phone: [employer] [facility] 03-07-2024 13:41-0400 SaO2% (BldA) [Mass fraction] 98 % Fabi Giraldo APRN-CAMP NURSE [facility] Phone[facility] 12-18-2023 14:01-0400 Body height 165.1 cm Ashlyn Gates PA-C Work Phone: [facility] 12-18-2023 14:01-0400 Body mass index (BMI) [Ratio] 62.24 kg/m2 Ashlyn Walkerall PA-C Work Phone: [facility] 12-18-2023 14:01-0400 Body weight 169.65 kg Ashlyn Walkerall PA-C Work Phone: [facility] 12-18-2023 14:01-0400 Diastolic blood pressure 86 mm[Hg] Ashlyn Walkerall PA-C Work Phone: [facility] 12-18-2023 14:01-0400 Heart rate 96 /min Ashlyn Walkerall PA-C Work Phone: [facility] 12-18-2023 14:01-0400 Systolic blood pressure 127 mm[Hg] Ashlyn Walkerall PA-C Work Phone: [facility] 12-08-2023 14:27-0400 Diastolic blood pressure 86 mm[Hg] Fabi Giraldo TRAVEL REGISTERED NURSE PACU-CAMP NURSE Work Phone: [facility] 12-08-2023 14:27-0400 Systolic blood pressure 144 mm[Hg] Fabi Dentt TRAVEL REGISTERED NURSE PACU-CAMP NURSE Work Phone: [facility] 12-08-2023 14:18-0400 Body height 165.1 cm Fabi Giraldo TRAVEL REGISTERED NURSE PACU-CAMP NURSE Work Phone: [facility] 12-08-2023 14:18-0400 Body mass index (BMI) [Ratio] 62.47 kg/m2 Fabi Giraldo TRAVEL REGISTERED NURSE PACU-CAMP NURSE Work Phone: [employer] [facility] 12-08-2023 14:18-0400 Body weight 170.28 kg Fabi Giraldo TRAVEL REGISTERED NURSE PACU-CAMP NURSE Work Phone: [facility] 12-08-2023 14:18-0400 Heart rate 94 /min Fabi Giraldo TRAVEL REGISTERED NURSE PACU-CAMP NURSE Work Phone: [facility] 09-07-2023 15:43-0400 Body height 165.1 cm Fabi Kristal TRAVEL REGISTERED NURSE PACU-CAMP NURSE Work Phone: [employer] [facility] 09-07-2023 15:43-0400 Body mass index (BMI) [Ratio] 62.64 kg/m2 Fabi Giraldo TRAVEL REGISTERED NURSE PACU-CAMP NURSE Work Phone: [facility] 09-07-2023 15:43-0400 Body weight 170.73 kg Fabi Giraldo TRAVEL REGISTERED NURSE PACU-CAMP NURSE Work Phone: [facility] 09-07-2023 15:43-0400 Diastolic blood pressure 91 mm[Hg] Fabi Giraldo TRAVEL REGISTERED NURSE PACU-CAMP NURSE Work Phone: [facility] 09-07-2023 15:43-0400 Heart rate 94 /min Fabi Giraldo TRAVEL REGISTERED NURSE PACU-CAMP NURSE Work Phone: [facility] 09-07-2023 15:43-0400 Systolic blood pressure 148 mm[Hg] Fabi Giraldo TRAVEL REGISTERED NURSE PACU-CAMP NURSE Work Phone: [facility] 08-12-2023 08:48-0400 Body temperature 98.1 [degF] Patricia Tanvir TRAVEL REGISTERED NURSE PACU-CAMP NURSE Work Phone: [facility] 08-12-2023 08:25-0400 Diastolic blood pressure 114 mm[Hg] Patricia Tanvir TRAVEL REGISTERED NURSE PACU-CAMP NURSE Work Phone: [facility] 08-12-2023 08:25-0400 Heart rate 100 /min Patricia Tanvir TRAVEL REGISTERED NURSE PACU-CAMP NURSE Work Phone: [facility] 08-12-2023 08:25-0400 SaO2% (BldA) [Mass fraction] 100 % Patricia Tanvir TRAVEL REGISTERED NURSE PACU-CAMP NURSE Work Phone: [facility] 08-12-2023 08:25-0400 Systolic blood pressure 164 mm[Hg] Patricia Tanvir TRAVEL REGISTERED NURSE PACU-CAMP NURSE Work Phone: [facility] 08-12-2023 08:21-0400 Body height 165.1 cm Patricia Tanvir TRAVEL REGISTERED NURSE PACU-CAMP NURSE Work Phone: [facility] 08-12-2023 08:21-0400 Body mass index (BMI) [Ratio] 62.57 kg/m2 Patricia Ramey TRAVEL REGISTERED NURSE PACU-CAMP NURSE Work Phone: [facility] 08-12-2023 08:21-0400 Body weight 170.55 kg Patricia Ramey TRAVEL REGISTERED NURSE PACU-CAMP NURSE Work Phone: [facility] 08-12-2023 08:21-0400 Respiratory rate 20 /min Patricia Ramey TRAVEL REGISTERED NURSE PACU-CAMP NURSE Work Phone: [facility] 05-25-2023 13:31-0500 Body mass index (BMI) [Ratio] 62.77 kg/m2 Fabi Kristal TRAVEL REGISTERED NURSE PACU-CAMP NURSE Work Phone: [facility] 05-25-2023 13:31-0500 Body weight 171.1 kg Fabi Giraldo TRAVEL REGISTERED NURSE PACU-CAMP NURSE Work Phone: [employer] [facility] 05-25-2023 13:31-0500 Diastolic blood pressure 81 mm[Hg] Fabi Giraldo TRAVEL REGISTERED NURSE PACU-CAMP NURSE Work Phone: [employer] [facility] 05-25-2023 13:31-0500 Heart rate 84 /min Fabi Kristal TRAVEL REGISTERED NURSE PACU-CAMP NURSE Work Phone: [employer] [facility] 05-25-2023 13:31-0500 Systolic blood pressure 140 mm[Hg] Fabi Giraldo TRAVEL REGISTERED NURSE PACU-CAMP NURSE Work Phone: [employer] [facility] 05-23-2023 14:00-0500 Body height 165.1 cm Ashlyn LOPEZ-C Work Phone: [facility] 05-23-2023 14:00-0500 Body mass index (BMI) [Ratio] 62.74 kg/m2 Ashlyn Gates PA-C Work Phone: [facility] 05-23-2023 14:00-0500 Body weight 171.01 kg Ashlyn LOPEZ-C Work Phone: [facility] 05-23-2023 14:00-0500 Diastolic blood pressure 93 mm[Hg] Ashlyn Gates PA-C Work Phone: [facility] 05-23-2023 14:00-0500 Respiratory rate 96 /min Ashlyn Gates PA-C Work Phone: [facility] 05-23-2023 14:00-0500 SaO2% (BldA) [Mass fraction] 95 % Ashlyn Gates PA-C Work Phone: [facility] 05-23-2023 14:00-0500 Systolic blood pressure 144 mm[Hg] Ashlyn Gates PA-C Work Phone: [facility] 02-15-2023 08:09-0400 Diastolic blood pressure 96 mm[Hg] Fabi Giraldo TRAVEL REGISTERED NURSE PACU-CAMP NURSE Work Phone: [facility] 02-15-2023 08:09-0400 Systolic blood pressure 142 mm[Hg] Fabi Giraldo TRAVEL REGISTERED NURSE PACU-CAMP NURSE Work Phone: [facility] 02-15-2023 07:56-0400 Body mass index (BMI) [Ratio] 61.67 kg/m2 Fabi Giraldo TRAVEL REGISTERED NURSE PACU-CAMP NURSE Work Phone: [facility] 02-15-2023 07:56-0400 Body weight 168.1 kg Fabi Giraldo TRAVEL REGISTERED NURSE PACU-CAMP NURSE Work Phone: [facility] 02-15-2023 07:56-0400 Heart rate 87 /min Fabi Giraldo TRAVEL REGISTERED NURSE PACU-CAMP NURSE Work Phone: [facility] 01-10-2023 10:16-0400 Body height 165.1 cm [...] 15:35-0400 Body height 165.1 cm Fabi Giraldo TRAVEL REGISTERED NURSE PACU-CAMP NURSE Work Phone: [employer] 11-24-2022 15:35-0400 Body mass index (BMI) [Ratio] 60.71 kg/m2 Fabi Giraldo TRAVEL REGISTERED NURSE PACU-CAMP NURSE Work Phone: [employer] 11-24-2022 15:35-0400 Body weight 165.47 kg Fabi Giraldo TRAVEL REGISTERED NURSE PACU-CAMP NURSE Work Phone: [facility] 11-24-2022 15:35-0400 Diastolic blood pressure 83 mm[Hg] Fabi Giraldo TRAVEL REGISTERED NURSE PACU-CAMP NURSE Work Phone: [facility] 11-24-2022 15:35-0400 Heart rate 96 /min Fabi Giraldo TRAVEL REGISTERED NURSE PACU-CAMP NURSE Work Phone: [facility] 11-24-2022 15:35-0400 Systolic blood pressure 139 mm[Hg] Fabi Giraldo TRAVEL REGISTERED NURSE PACU-CAMP NURSE Work Phone: [facility] 11-01-2022 14:46-0400 Body height 165.1 cm Ashlynphylicia Walkerall PA-C Work Phone: [facility] 11-01-2022 14:46-0400 Body mass index (BMI) [Ratio] 60.57 kg/m2 Ashlynphylicia Walkerall PA-C Work Phone: [facility] 11-01-2022 14:46-0400 Body weight 165.11 kg Ashlyn Yajaira PA-C Work Phone: [facility] 11-01-2022 14:46-0400 Diastolic blood pressure 91 mm[Hg] Ashlyn Tuttle PA-C Work Phone: [facility] 11-01-2022 14:46-0400 Heart rate 93 /min Ashlyn Titusenhall PA-C Work Phone: [facility] 11-01-2022 14:46-0400 Systolic blood pressure 137 mm[Hg] Ashlyn Tuttle PA-C Work Phone: [facility] 10-26-2022 15:48-0400 Diastolic blood pressure 92 mm[Hg] Fabi Giraldo TRAVEL REGISTERED NURSE PACU-CAMP NURSE Work Phone: [facility] 10-26-2022 15:48-0400 Systolic blood pressure 158 mm[Hg] Fabi Giraldo TRAVEL REGISTERED NURSE PACU-CAMP NURSE Work Phone: [facility] 10-26-2022 15:33-0400 Body height 165.1 cm Fabi Giraldo TRAVEL REGISTERED NURSE PACU-CAMP NURSE Work Phone: [facility] 10-26-2022 15:33-0400 Body mass index (BMI) [Ratio] 60.31 kg/m2 Fabi Giraldo TRAVEL REGISTERED NURSE PACU-CAMP NURSE Work Phone: [facility] 10-26-2022 15:33-0400 Body temperature 98.4 [degF] Fabi Giraldo TRAVEL REGISTERED NURSE PACU-CAMP NURSE Work Phone: [facility] 10-26-2022 15:33-0400 Body weight 164.38 kg Fabi Giraldo TRAVEL REGISTERED NURSE PACU-CAMP NURSE Work Phone: [facility] 10-26-2022 15:33-0400 Heart rate 89 /min Fabi Giraldo TRAVEL REGISTERED NURSE PACU-CAMP NURSE Work Phone: [facility] 10-26-2022 15:33-0400 SaO2% (BldA) [Mass fraction] 98 % Fabi Giraldo TRAVEL REGISTERED NURSE PACU-CAMP NURSE Work Phone: [facility] 09-03-2022 21:11-0400 Respiratory rate 18 /min PA Ashlyn Gates PA Work Phone: [facility] 09-03-2022 19:12-0400 Body height 165.1 cm PA Ashlyn Gates PA Work Phone: [facility] 09-03-2022 19:12-0400 Body mass index (BMI) [Ratio] 60 kg/m2 PA Ashlynphylicia Walkerall PA Work Phone: [facility] 09-03-2022 19:12-0400 Body temperature 97.6 [degF] PA Ashlynphylicia Walkerall PA Work Phone: [facility] 09-03-2022 19:12-0400 Body weight 163.61 kg PA Ashlynphylicia Walkerall PA Work Phone: [facility] 09-03-2022 19:12-0400 Diastolic blood pressure 107 mm[Hg] PA Ashlyn Gates PA Work Phone: [facility] 09-03-2022 19:12-0400 Heart rate 110 /min PA Ashlyn Gates PA Work Phone: [facility] 09-03-2022 19:12-0400 SaO2% (BldA) [Mass fraction] 97 % PA Ashlyn Gates PA Work Phone: [facility] 09-03-2022 19:12-0400 Systolic blood pressure 162 mm[Hg] PA Ashlyn Gates PA Work Phone: [facility] 08-30-2022 13:40-0400 Diastolic blood pressure 92 mm[Hg] Fabi Giraldo TRAVEL REGISTERED NURSE PACU-CAMP NURSE Work Phone: [facility] 08-30-2022 13:40-0400 Systolic blood pressure 148 mm[Hg] Fabi Giraldo TRAVEL REGISTERED NURSE PACU-CAMP NURSE Work Phone: [facility] 08-30-2022 13:24-0400 Body mass index (BMI) [Ratio] 60.29 kg/m2 Fbai Giraldo APRN-CAMP NURSE Work Phone: [facility] 08-30-2022 13:24-0400 Body weight 164.34 kg Fabi Giraldo APRN-CAMP NURSE Work Phone: [facility] 08-30-2022 13:24-0400 Heart rate 98 /min Fabi Giraldo APRN-CAMP NURSE Work Phone: [facility] 07-26-2022 14:28-0500 Diastolic blood pressure 84 mm[Hg] Fabi Giraldo TRAVEL REGISTERED NURSE PACU-CAMP NURSE Work Phone: [facility] 07-26-2022 14:28-0500 Systolic blood pressure 134 mm[Hg] Fabi Giraldo TRAVEL REGISTERED NURSE PACU-CAMP NURSE Work Phone: [facility] 07-26-2022 14:10-0500 Body height 165.1 cm Fabi Giraldo APRN-CAMP NURSE Work Phone: [employer] 07-26-2022 14:10-0500 Body mass index (BMI) [Ratio] 60.41 kg/m2 Fabi Giraldo TRAVEL REGISTERED NURSE PACU-CAMP NURSE Work Phone: [employer] [facility] 07-26-2022 14:10-0500 Body weight 164.66 kg Fabi Giraldo TRAVEL REGISTERED NURSE PACU-CAMP NURSE Work Phone: [employer] 07-26-2022 14:10-0500 Heart rate 91 /min Fabi Giraldo TRAVEL REGISTERED NURSE PACU-CAMP NURSE Work Phone: [employer] [facility] 06-28-2022 15:32-0500 Diastolic blood pressure 94 mm[Hg] Fabi Giraldo TRAVEL REGISTERED NURSE PACU-CAMP NURSE Work Phone: [employer] [facility] 06-28-2022 15:32-0500 Systolic blood pressure 158 mm[Hg] Fabi Giraldo TRAVEL REGISTERED NURSE PACU-CAMP NURSE Work Phone: [employer] 06-28-2022 14:58-0500 Body height 165.1 cm Fabi Giraldo APRN-CAMP NURSE Work Phone: [employer] 06-28-2022 14:58-0500 Body mass index (BMI) [Ratio] 60.81 kg/m2 Fabi Giraldo APRN-CAMP NURSE Work Phone: [employer] [facility] 06-28-2022 14:58-0500 Body weight 165.74 kg Fabi Dentt TRAVEL REGISTERED NURSE PACU-CAMP NURSE Work Phone: [employer] [facility] 06-28-2022 14:58-0500 Heart rate 82 /min Fabi Kristal TRAVEL REGISTERED NURSE PACU-CAMP NURSE Work Phone: [employer] [facility] 05-18-2022 06:32-0500 Body mass index (BMI) [Ratio] 58.7 kg/m2 JOHN LOPEZ Work Phone: [facility] 05-18-2022 06:32-0500 Body temperature 98.3 [degF] JOHN LOPEZ Work Phone: [facility] 05-18-2022 06:32-0500 Body weight 160.11 kg PA Ashlyn Yajaira PA Work Phone: [facility] 05-18-2022 06:32-0500 Diastolic blood pressure 90 mm[Hg] PA Ashlyn Yajaira PA Work Phone: [facility] 05-18-2022 06:32-0500 Heart rate 92 /min PA Ashlyn Tuttle PA Work Phone: [facility] 05-18-2022 06:32-0500 Respiratory rate 14 /min PA Ashlyn Tuttle PA Work Phone: [facility] 05-18-2022 06:32-0500 SaO2% (BldA) [Mass fraction] 98 % PA Ashlyn Tuttle PA Work Phone: [facility] 05-18-2022 06:32-0500 Systolic blood pressure 152 mm[Hg] PA Ashlyn Yajaira PA Work Phone: [facility] 05-03-2022 14:51-0500 Body height 165.1 cm Ashlyn Walkerall Work Phone: [facility] Work Phone: 05-03-2022 14:51-0500 Body mass index (BMI) [Ratio] 57.24 kg/m2 Ashlyn Walkerall Work Phone: [facility] Work Phone: 05-03-2022 14:51-0500 Body surface area Derived from formula 2.49 m2 Ashlyn Titusenhall Work Phone: [facility] Work Phone: 05-03-2022 14:51-0500 Body weight 156.04 kg Ashlyn Titusenhall Work Phone: [facility] Work Phone: 05-03-2022 14:51-0500 Diastolic blood pressure 82 mm[Hg] Ashlyn Gates Work Phone: [facility] Work Phone: 05-03-2022 14:51-0500 Heart rate 88 /min Ashlyn Gates Work Phone: [facility] Work Phone: 05-03-2022 14:51-0500 Systolic blood pressure 138 mm[Hg] Ashlyn Gates Work Phone: [facility] Work Phone: 04-26-2022 16:01-0500 Diastolic blood pressure 86 mm[Hg] Fabi Giraldo TRAVEL REGISTERED NURSE PACU-CAMP NURSE Work Phone: [facility] 04-26-2022 16:01-0500 Systolic blood pressure 136 mm[Hg] Fabi Dentt TRAVEL REGISTERED NURSE PACU-CAMP NURSE Work Phone: [facility] 04-26-2022 15:37-0500 Body height 165.1 cm Fabi Giraldo TRAVEL REGISTERED NURSE PACU-CAMP NURSE Work Phone: [facility] 04-26-2022 15:37-0500 Body mass index (BMI) [Ratio] 57.94 kg/m2 Fabi Kristal TRAVEL REGISTERED NURSE PACU-CAMP NURSE Work Phone: [facility] [facility] 04-26-2022 15:37-0500 Body weight 157.94 kg Fabi Giraldo TRAVEL REGISTERED NURSE PACU-CAMP NURSE Work Phone: [facility] 04-26-2022 15:37-0500 Heart rate 91 /min Fabi Giraldo TRAVEL REGISTERED NURSE PACU-CAMP NURSE Work Phone: [facility] 04-11-2022 13:09-0500 Body height 165 cm Ashlyn Gates Other Phone: [facility] 04-11-2022 13:09-0500 Body temperature 96.98 [degF] Ashlyn Gates Other Phone: [facility] 04-11-2022 13:09-0500 Diastolic blood pressure 101 mm[Hg] Ashlyn Titusenhall Other Phone: [facility] 04-11-2022 13:09-0500 Heart rate 96 /min Ashlyn Titusenhall Other Phone: [facility] 04-11-2022 13:09-0500 Respiratory rate 16 /min Ashlyn Titusenhall Other Phone: [facility] 04-11-2022 13:09-0500 SaO2% (BldA) [Mass fraction] 97 % Ashlyn Walkerall Other Phone: [facility] 04-11-2022 13:09-0500 Systolic blood pressure 148 mm[Hg] Ashlyn Titusenhall Other Phone: [facility] 03-24-2022 15:34-0400 Diastolic blood pressure 82 mm[Hg] Fabi Giraldo TRAVEL REGISTERED NURSE PACU-CAMP NURSE Work Phone: [facility] 03-24-2022 15:34-0400 Systolic blood pressure 138 mm[Hg] Fabi Giraldo TRAVEL REGISTERED NURSE PACU-CAMP NURSE Work Phone: [facility] [employer] [facility] 03-24-2022 15:11-0400 Body height 165.1 cm Fabi Giraldo TRAVEL REGISTERED NURSE PACU-CAMP NURSE Work Phone: [facility] 03-24-2022 15:11-0400 Body mass index (BMI) [Ratio] 57.41 kg/m2 Fabi Giraldo TRAVEL REGISTERED NURSE PACU-CAMP NURSE Work Phone: [facility] 03-24-2022 15:11-0400 Body weight 156.49 kg Fabi Giraldo TRAVEL REGISTERED NURSE PACU-CAMP NURSE Work Phone: [employer] [facility] 03-24-2022 15:11-0400 Heart rate 105 /min Fabi Giraldo TRAVEL REGISTERED NURSE PACU-CAMP NURSE Work Phone: [employer] [facility] 02-24-2022 15:42-0400 Body height 165.1 cm Fabi Giraldo TRAVEL REGISTERED NURSE PACU-CAMP NURSE Work Phone: [facility] 02-24-2022 15:42-0400 Body mass index (BMI) [Ratio] 53.98 kg/m2 Fabi Dentt TRAVEL REGISTERED NURSE PACU-CAMP NURSE Work Phone: [facility] 02-24-2022 15:42-0400 Body weight 147.15 kg Fabi Irizarryhart TRAVEL REGISTERED NURSE PACU-CAMP NURSE Work Phone: [facility] 02-24-2022 15:42-0400 Diastolic blood pressure 89 mm[Hg] Fabi Kristal TRAVEL REGISTERED NURSE PACU-CAMP NURSE Work Phone: [facility] 02-24-2022 15:42-0400 Heart rate 87 /min Fabi Kristal TRAVEL REGISTERED NURSE PACU-CAMP NURSE Work Phone: [facility] 02-24-2022 15:42-0400 Systolic blood pressure 126 mm[Hg] Fabi Kristal TRAVEL REGISTERED NURSE PACU-CAMP NURSE Work Phone: [facility] 01-26-2022 15:13-0400 Body height 165.1 cm Fabianne IrizarryKristal TRAVEL REGISTERED NURSE PACU-CAMP NURSE Work Phone: [facility] 01-26-2022 15:13-0400 Body mass index (BMI) [Ratio] 56.38 kg/m2 Fabi Dentt TRAVEL REGISTERED NURSE PACU-CAMP NURSE Work Phone: [facility] 01-26-2022 15:13-0400 Body weight 153.68 kg Fabi Kristal TRAVEL REGISTERED NURSE PACU-CAMP NURSE Work Phone: [facility] 01-26-2022 15:13-0400 Diastolic blood pressure 84 mm[Hg] Faib Dentt TRAVEL REGISTERED NURSE PACU-CAMP NURSE Work Phone: [employer] [facility] 01-26-2022 15:13-0400 Heart rate 93 /min Fabi Dentt TRAVEL REGISTERED NURSE PACU-CAMP NURSE Work Phone: [facility] 01-26-2022 15:13-0400 Systolic blood pressure 136 mm[Hg] Fabi Giraldo TRAVEL REGISTERED NURSE PACU-CAMP NURSE Work Phone: [facility] 01-25-2022 08:52-0400 Body mass index (BMI) [...] 15:04-0400 Body height 165.1 cm Fabi Giraldo APRN-CAMP NURSE Work Phone: [facility] 11-25-2021 15:04-0400 Body mass index (BMI) [Ratio] 57.94 kg/m2 Fabi Giraldo APRN-CAMP NURSE Work Phone: [facility] 11-25-2021 15:04-0400 Body weight 157.94 kg Fabi Giraldo TRAVEL REGISTERED NURSE PACU-CAMP NURSE Work Phone: [facility] 11-25-2021 15:04-0400 Diastolic blood pressure 83 mm[Hg] Fabi Giraldo TRAVEL REGISTERED NURSE PACU-CAMP NURSE Work Phone: [facility] 11-25-2021 15:04-0400 Heart rate 96 /min Fabi Giraldo TRAVEL REGISTERED NURSE PACU-CAMP NURSE Work Phone: [facility] 11-25-2021 15:04-0400 SaO2% (BldA) [Mass fraction] 98 % Fabi Giraldo TRAVEL REGISTERED NURSE PACU-CAMP NURSE Work Phone: [facility] 11-25-2021 15:04-0400 Systolic blood pressure 132 mm[Hg] Fabi Giraldo TRAVEL REGISTERED NURSE PACU-CAMP NURSE Work Phone: [facility] 11-02-2021 14:53-0400 Body height 165.1 cm Ashlyn Gates Work Phone: [facility] Work Phone: 11-02-2021 14:53-0400 Body mass index (BMI) [Ratio] 58.24 kg/m2 Ashlyn Gates Work Phone: [facility] Work Phone: 11-02-2021 14:53-0400 Body surface area Derived from formula 2.51 m2 Ashlyn Gates Work Phone: [facility] Work Phone: 11-02-2021 14:53-0400 Body weight 158.76 kg Ashlyn Gates Work Phone: [facility] Work Phone: 11-02-2021 14:53-0400 Diastolic blood pressure 78 mm[Hg] Ashlyn Gates Work Phone: [facility] Work Phone: 11-02-2021 14:53-0400 Heart rate 88 /min Ashlyn Gates Work Phone: [facility] Work Phone: 11-02-2021 14:53-0400 SaO2% (BldA) [Mass fraction] 98 % Ashlyn Gates Work Phone: [facility] Work Phone: 11-02-2021 14:53-0400 Systolic blood pressure 118 mm[Hg] Ashlyn Gates Work Phone: [facility] Work Phone: 10-27-2021 15:07-0400 Body height 165.1 cm Fabi Giraldo APRN-CAMP NURSE Work Phone: [facility] 10-27-2021 15:07-0400 Body mass index (BMI) [Ratio] 58.74 kg/m2 Fabi Giraldo TRAVEL REGISTERED NURSE PACU-CAMP NURSE Work Phone: [facility] 10-27-2021 15:07-0400 Body weight 160.12 kg Fabi Giraldo TRAVEL REGISTERED NURSE PACU-CAMP NURSE Work Phone: [facility] 10-27-2021 15:07-0400 Diastolic blood pressure 86 mm[Hg] Fabi Giraldo TRAVEL REGISTERED NURSE PACU-CAMP NURSE Work Phone: [facility] 10-27-2021 15:07-0400 Heart rate 98 /min Fabi Giraldo TRAVEL REGISTERED NURSE PACU-CAMP NURSE Work Phone: [facility] 10-27-2021 15:07-0400 Systolic blood pressure 127 mm[Hg] Fabi Giraldo APRN-CAMP NURSE Work Phone: [facility] 09-29-2021 14:58-0400 Body height 165.1 cm Fabi Giraldo TRAVEL REGISTERED NURSE PACU-CAMP NURSE Work Phone: [facility] 09-29-2021 14:58-0400 Body mass index (BMI) [Ratio] 58.24 kg/m2 Fabi Giraldo TRAVEL REGISTERED NURSE PACU-CAMP NURSE Work Phone: [facility] 09-29-2021 14:58-0400 Body weight 158.76 kg Fabi Giraldo TRAVEL REGISTERED NURSE PACU-CAMP NURSE Work Phone: [facility] 09-29-2021 14:58-0400 Diastolic blood pressure 84 mm[Hg] Fabi Giraldo TRAVEL REGISTERED NURSE PACU-CAMP NURSE Work Phone: [facility] 09-29-2021 14:58-0400 Heart rate 87 /min Fabi Giraldo TRAVEL REGISTERED NURSE PACU-CAMP NURSE Work Phone: [facility] 09-29-2021 14:58-0400 SaO2% (BldA) [Mass fraction] 100 % Fabi Giraldo APRN-CAMP NURSE Work Phone: [facility] 09-29-2021 14:58-0400 Systolic blood pressure 127 mm[Hg] Fabi Dentt TRAVEL REGISTERED NURSE PACU-CAMP NURSE Work Phone: [facility] 09-02-2021 15:11-0400 Diastolic blood pressure 88 mm[Hg] Fabi Giraldo TRAVEL REGISTERED NURSE PACU-CAMP NURSE Work Phone: [facility] 09-02-2021 15:11-0400 Systolic blood pressure 132 mm[Hg] Fabi Giraldo TRAVEL REGISTERED NURSE PACU-CAMP NURSE Work Phone: [facility] 09-02-2021 14:54-0400 Body height 165.1 cm Fabi Dentt TRAVEL REGISTERED NURSE PACU-CAMP NURSE Work Phone: [facility] 09-02-2021 14:54-0400 Body mass index (BMI) [Ratio] 58.04 kg/m2 Fabi Giraldo TRAVEL REGISTERED NURSE PACU-CAMP NURSE Work Phone: [facility] 09-02-2021 14:54-0400 Body weight 158.22 kg Fabianne Dentt TRAVEL REGISTERED NURSE PACU-CAMP NURSE Work Phone: [facility] 09-02-2021 14:54-0400 Heart rate 84 /min Fabi Giraldo APRN-CAMP NURSE Work Phone: [facility] [employer] [facility] 09-02-2021 14:54-0400 SaO2% (BldA) [Mass fraction] 99 % Fabi Giraldo APRN-CAMP NURSE Work Phone: [facility] 08-03-2021 15:00-0500 Body height 165.1 cm Fabi Giraldo APRN-CAMP NURSE Work Phone: [facility] 08-03-2021 15:00-0500 Body mass index (BMI) [Ratio] 58.54 kg/m2 Fabi Giraldo APRN-CAMP NURSE Work Phone: [facility] 08-03-2021 15:00-0500 Body weight 159.57 kg Fabi Giraldo APRN-CAMP NURSE Work Phone: [facility] 08-03-2021 15:00-0500 Diastolic blood pressure 84 mm[Hg] Fabi Giraldo APRN-CAMP NURSE Work Phone: [facility] 08-03-2021 15:00-0500 Heart rate 102 /min Fabi Giraldo APRN-CAMP NURSE Work Phone: [facility] 08-03-2021 15:00-0500 Systolic blood pressure 126 mm[Hg] Fabi Giraldo APRN-CAMP NURSE Work Phone: [facility] 07-06-2021 14:55-0500 Body height 165.1 cm Fabi Dentt TRAVEL REGISTERED NURSE PACU-CAMP NURSE Work Phone: [facility] 07-06-2021 14:55-0500 Body mass index (BMI) [Ratio] 58.78 kg/m2 Fabi Giraldo APRN-CAMP NURSE Work Phone: [facility] 07-06-2021 14:55-0500 Body temperature 97.7 [degF] Fabi Giraldo APRN-CAMP NURSE Work Phone: [facility] 07-06-2021 14:55-0500 Body weight 160.21 kg Fabi Giraldo TRAVEL REGISTERED NURSE PACU-CAMP NURSE Work Phone: [employer] [facility] 07-06-2021 14:55-0500 Diastolic blood pressure 87 mm[Hg] Fabi Giraldo TRAVEL REGISTERED NURSE PACU-CAMP NURSE Work Phone: [employer] [facility] 07-06-2021 14:55-0500 Heart rate 90 /min Fabi Giraldo TRAVEL REGISTERED NURSE PACU-CAMP NURSE Work Phone: [employer] [facility] 07-06-2021 14:55-0500 Respiratory rate 16 /min Fabi Giraldo TRAVEL REGISTERED NURSE PACU-CAMP NURSE Work Phone: [employer] [facility] 07-06-2021 14:55-0500 SaO2% (BldA) [Mass fraction] 99 % Fabi Giraldo APRN-CAMP NURSE Work Phone: [employer] [facility] 07-06-2021 14:55-0500 Systolic blood pressure 128 mm[Hg] Fabi Giraldo APRN-CAMP NURSE Work Phone: [employer] [facility] 07-05-2021 15:06-0500 Body height 165.1 cm [...] 07-05-2021 15:06-0500 Heart rate 88 /min Ashlyn aGtes Work Phone: [facility] Work Phone: 07-05-2021 15:06-0500 Respiratory rate 16 /min Ashlyn Gates Work Phone: [facility] Work Phone: 07-05-2021 15:06-0500 Systolic blood pressure 132 mm[Hg] Ashlyn Gates Work Phone: [facility] Work Phone: 04-30-2021 14:04-0500 Body height 165.1 cm Fabi Giraldo TRAVEL REGISTERED NURSE PACU-CAMP NURSE Work Phone: [employer] [facility] 04-30-2021 14:04-0500 Body mass index (BMI) [Ratio] 58.71 kg/m2 Fabi Giraldo TRAVEL REGISTERED NURSE PACU-CAMP NURSE Work Phone: [employer] [facility] 04-30-2021 14:04-0500 Body weight 160.03 kg Fabi Giraldo TRAVEL REGISTERED NURSE PACU-CAMP NURSE Work Phone: [employer] [facility] 04-30-2021 14:04-0500 Diastolic blood pressure 91 mm[Hg] Fabi Giraldo TRAVEL REGISTERED NURSE PACU-CAMP NURSE Work Phone: [employer] [facility] 04-30-2021 14:04-0500 Heart rate 87 /min Fabi Giraldo TRAVEL REGISTERED NURSE PACU-CAMP NURSE Work Phone: [employer] [facility] 04-30-2021 14:04-0500 Systolic blood pressure 142 mm[Hg] Fabi Giraldo TRAVEL REGISTERED NURSE PACU-CAMP NURSE Work Phone: [facility] 03-25-2021 15:29-0400 Body height 165.1 cm Ashlyn Gates Work Phone: [facility] Work Phone: 03-25-2021 15:29-0400 Body mass index (BMI) [Ratio] 59.57 kg/m2 Ashlyn Gates Work Phone: [facility] Work Phone: 03-25-2021 15:29-0400 Body surface area Derived from formula 2.53 m2 Ashlyn Gates Work Phone: [facility] Work Phone: 03-25-2021 15:29-0400 Body weight 162.38 kg Ashlyn Gates Work Phone: [facility] Work Phone: 03-25-2021 15:29-0400 Diastolic blood pressure 78 mm[Hg] Ashlyn Gates Work Phone: [facility] Work Phone: 03-25-2021 15:29-0400 Heart rate 84 /min Ashlyn Gates Work Phone: [facility] Work Phone: 03-25-2021 15:29-0400 Systolic blood pressure 136 mm[Hg] Ashlyn Gates Work Phone: [facility] Work Phone: 12-29-2020 15:15-0400 Body temperature 97.6 [degF] Ashlyn Gates Work Phone: [facility] Work Phone: 12-29-2020 15:15-0400 Body [...] 15:37-0400 Body height 165.1 cm Fabi Giraldo TRAVEL REGISTERED NURSE PACU-CAMP NURSE Work Phone: [employer] [facility] 12-22-2020 15:37-0400 Body mass index (BMI) [Ratio] 59.34 kg/m2 Fabi Giraldo TRAVEL REGISTERED NURSE PACU-CAMP NURSE Work Phone: [employer] [facility] 12-22-2020 15:37-0400 Body weight 161.75 kg Fabi Giraldo TRAVEL REGISTERED NURSE PACU-CAMP NURSE Work Phone: [employer] [facility] 12-22-2020 15:37-0400 Diastolic blood pressure 91 mm[Hg] Fabi Giraldo TRAVEL REGISTERED NURSE PACU-CAMP NURSE Work Phone: [employer] [facility] 12-22-2020 15:37-0400 Heart rate 90 /min Fabi Giraldo TRAVEL REGISTERED NURSE PACU-CAMP NURSE Work Phone: [employer] [facility] 12-22-2020 15:37-0400 SaO2% (BldA) [Mass fraction] 98 % Fabi Giraldo TRAVEL REGISTERED NURSE PACU-CAMP NURSE Work Phone: [facility] 12-22-2020 15:37-0400 Systolic blood pressure 143 mm[Hg] Fabi Giraldo TRAVEL REGISTERED NURSE PACU-CAMP NURSE Work Phone: [facility] 12-08-2020 15:28-0400 Body height 165.1 cm Ashlyn [...] Phone: 12-02-2020 16:48-0400 Body height 165.1 cm [place] Arnold PA-C Work Phone: [facility] 12-02-2020 16:48-0400 Body mass index (BMI) [Ratio] 58.91 kg/m2 [place] Arnold PA-C Work Phone: [facility] 12-02-2020 16:48-0400 Body temperature 96.21 [degF] [place] Arnold PA-C Work Phone: [facility] [employer] [facility] 12-02-2020 16:48-0400 Body weight 160.57 kg [place] Arnold PA-C Work Phone: [facility] [employer] [facility] 12-02-2020 16:48-0400 Diastolic blood pressure 91 mm[Hg] [place] Arnold PA-C Work Phone: [facility] 12-02-2020 16:48-0400 Heart rate 97 /min [place] Arnold PA-C Work Phone: [facility] [employer] [facility] 12-02-2020 16:48-0400 Respiratory rate 18 /min [place] Arnold PA-C Work Phone: [facility] 12-02-2020 16:48-0400 SaO2% (BldA) [Mass fraction] 99 % [place] Arnold PA-C Work Phone: [facility] 12-02-2020 16:48-0400 Systolic blood pressure 152 mm[Hg] [place] Arnold PA-C Work Phone: [facility] 11-03-2020 14:26-0400 Body height 165.1 cm Zenia Arnold PA-C Work Phone: [facility] 11-03-2020 14:26-0400 Body mass index (BMI) [Ratio] 59.34 kg/m2 [place] Ezekiel PA-C Work Phone: [facility] 11-03-2020 14:26-0400 Body temperature 98.1 [degF] Zenia Kendalold PA-C Work Phone: [facility] 11-03-2020 14:26-0400 Body weight 161.75 kg [place] Ezekiel PA-C Work Phone: [facility] 11-03-2020 14:26-0400 Diastolic blood pressure 98 mm[Hg] [place]bronwyn Falcon PA-C Work Phone: [facility] 11-03-2020 14:26-0400 Heart rate 104 /min Zenia Kendalold PA-C Work Phone: [facility] 11-03-2020 14:26-0400 Respiratory rate 18 /min [place] Kendalold PA-C Work Phone: [facility] 11-03-2020 14:26-0400 SaO2% (BldA) [Mass fraction] 99 % Zeniabronwyn Falcon PA-C Work Phone: [facility] 11-03-2020 14:26-0400 Systolic blood pressure 146 mm[Hg] Zenia Falcon PA-C Work Phone: [facility] 10-02-2020 14:41-0400 Diastolic blood pressure 86 mm[Hg] Charlotte Farah MD Work Phone: [facility] 10-02-2020 14:41-0400 Systolic blood pressure 140 mm[Hg] Charlotte Farah MD Work Phone: [facility] 10-02-2020 14:13-0400 Body height 165.1 cm Charlotte Farah MD Work Phone: [facility] 10-02-2020 14:13-0400 Body mass index (BMI) [Ratio] 60.21 kg/m2 Charlotte Farah MD Work Phone: [facility] 10-02-2020 14:13-0400 Body weight 164.11 kg Charlotte Farah MD Work Phone: [facility] 10-02-2020 14:13-0400 Heart rate 92 /min Charlotte Farah MD Work Phone: [facility] 09-04-2020 15:56-0400 BP Diastolic 86 mm[Hg] [facility] 09-04-2020 15:56-0400 BP Systolic 142 mm[Hg] [facility] 09-04-2020 15:39-0400 BMI (Body Mass Index) 61.17 kg/m2 [facility] 09-04-2020 15:39-0400 Body weight 166.74 kg [facility] 09-04-2020 15:39-0400 Height 165.1 cm [facility] 09-04-2020 15:39-0400 Pulse (Heart Rate) 90 /min [facility] 08-06-2020 15:33-0500 BMI (Body Mass Index) 62.57 kg/m2 [facility] 08-06-2020 15:33-0500 Body weight 170.55 kg [facility] 08-06-2020 15:33-0500 BP Diastolic 101 mm[Hg] [facility] 08-06-2020 15:33-0500 BP Systolic 155 mm[Hg] [facility] 08-06-2020 15:33-0500 Height 165.1 cm [facility] 08-06-2020 15:33-0500 Pulse (Heart Rate) 96 /min [facility] 05-07-2020 17:21-0500 BMI (Body Mass Index) 62.24 kg/m2 Christopher Keenan [facility] Work Phone: 05-07-2020 17:21-0500 Body weight 169.65 kg Christopher Keenan [facility] Work Phone: 05-07-2020 17:21-0500 BP Diastolic 102 mm[Hg] Christopher Keenan [facility] Work Phone: 05-07-2020 17:21-0500 BP Systolic 150 mm[Hg] Christopher Keenan [facility] Work Phone: 05-07-2020 17:21-0500 BSA (Body Surface Area) 2.58 m2 Christopher Keenan [facility] Work Phone: 05-07-2020 17:21-0500 Height 165.1 cm Christopher Keenan [facility] Work Phone: 05-07-2020 17:21-0500 Pulse (Heart Rate) 80 /min Christopher Keenan [facility] Work Phone: 09-02-2019 17:30-0400 BMI (Body Mass Index) 56.41 kg/m2 Crhistopher Keenan [facility] Work Phone: 09-02-2019 17:30-0400 Body Temperature 98.1 [degF] Christopher Keenan [facility] Work Phone: 09-02-2019 17:30-0400 Body weight 153.77 kg Christopher Keenan [facility] Work Phone: 09-02-2019 17:30-0400 BP Diastolic 89 mm[Hg] Christopher Keenan [facility] Work Phone: 09-02-2019 17:30-0400 BP Systolic 148 mm[Hg] Christopher Keenan [facility] Work Phone: 09-02-2019 17:30-0400 BSA (Body Surface Area) 2.48 m2 Christopher Keenan [facility] Work Phone: 09-02-2019 17:30-0400 Height 165.1 cm Christopher Keenan [facility] Work Phone: 09-02-2019 17:30-0400 Pulse (Heart Rate) 108 /min Christopher Keenan [facility] Work Phone: 09-02-2019 17:30-0400 Respiratory Rate 16 /min Christopher Keenan [facility] Work Phone: 03-25-2019 12:23-0400 BMI (Body Mass Index) 56.41 kg/m2 Christopher Keenan [facility] Work Phone: 03-25-2019 12:23-0400 Body weight 153.77 kg Christopher Keenan [facility] Work Phone: 03-25-2019 12:23-0400 BP Diastolic 82 mm[Hg] Christopher Keenan [facility] Work Phone: Comment on above: Location: LUE; Position: Sitting 03-25-2019 12:23-0400 BP Systolic 130 mm[Hg] Christopher Keenan [facility] Work Phone: Comment on above: Location: LUE; Position: Sitting 03-25-2019 12:23-0400 BSA (Body Surface Area) 2.48 m2 Christopher Keenan [facility] Work Phone: 03-25-2019 12:23-0400 Height 165.1 cm Christopher Keenan [facility] Work Phone: 03-25-2019 12:23-0400 Pulse (Heart Rate) 92 /min Christopher Keenan [facility] Work Phone: 03-04-2019 17:31-0400 BMI (Body Mass Index) 57.52 kg/m2 Christopher Keenan [facility] Work Phone: 03-04-2019 17:31-0400 Body weight [...] Provider Facility Start: 02-19-2025 ambulatory Senthil Webster ty:[facility] Start: 01-29-2025 End: 01-29-2025 [facility] Start: 01-29-2025 End: 01-29-2025 Office outpatient visit 25 minutes Ashlyn Gates PA-C Work Phone: [facility] Comment on above: Glucose intolerance [...] Start: 01-24-2025 End: 01-24-2025 ambulatory Ashlyn LOPEZ Facility:[facility] Start: 10-30-2024 End: 10-30-2024 Office outpatient visit 25 minutes Ashlyn Gates PA-C Work Phone: [facility] Comment on above: BEST (obstructive sle ep apnea) (Primary Dx); JESSICA (generalized anxiety disorder); Benign essential hypertension; Paroxysmal atrial fibrillation (Multi); Class 3 severe obesity due to excess calories with serious comorbidity and body mass index (BMI) of 60.0 to 69.9 in adult Start: 10-30-2024 End: 10-30-2024 ambulatory [facility] Start: 09-23-2024 End: 09-23-2024 ambulatory Ashlyn LOPEZ Facility[facility] Start: 09-18-2024 ambulatory Danial Hernández Facility :[facility] Start: 09-11-2024 End: 09-11-2024 Office outpatient visit 25 minutes Ashlyn LUBINC Work Phone: [facility] Comment on above: BEST (obstructive sle ep apnea) (Primary Dx); Depression, major, single episode, mild (CMS-HCC); JESSICA (generalized anxiety disorder); Paroxysmal atrial fibrillation (Multi); Benign essential hypertension; Class 3 severe obesity due to excess calories with serious comorbidity and body mass index (BMI) of 60.0 to 69.9 in adult; Binge eating disorder, unspecified severity Start: 09-11-2024 End: 09-11-2024 ambulatory [facility] Start: 09-03-2024 End: 09-04-2024 ambulatory [facility] Start: 08-15-2024 End: 08-15-[address] Chucky Thakkar MD -[facility] Work Phone: Start: 08-15-2024 End: 08-15-2024 ambulatory Chucky Thakkar Facility:[facility] Start: 08-07-2024 End: 08-07-[address] Danial Hernández MD -[facility] Work Phone: Start: 08-07-2024 End: 08-07-2024 ambulatory Ashlynphylicia Gates [place] Work Phone: [facility] Work Phone: Start: 08-07-2024 End: 08-07-2024 Office outpatient visit 25 minutes Fabi DENGCAMP NURSE Work Phone: [facility] Comment on above: BMI 60.0-69.9, adult (Primary Dx); Binge eating disorder, unspecified severity; Atrial fibrillation, unspecified type; Benign essential hypertension; Impaired glucose tolerance Start: 08-07-2024 ambulatory ASHLYN GATES [facility] Start: 08-07-2024 End: 08-07-2024 ambulatory Danial Hernández Facility:[facility] Start: 08-02-2024 End: 08-02-[address] Danial Hernández MD -[facility] Work Phone: Start: 08-02-2024 End: 08-02-2024 ambulatory Danial Hernández Facility[facility] Start: 08-01-2024 End: 08-01-2024 Emergency department patient visit Dr. Jose Ramon Castro DO -Emergency Department Work Phone: Start: 07-30-2024 End: 07-30-2024 Transitional care manage srvc 14 day discharge Desiree Sin MD Work Phone: [facility] Comment on above: Paroxysmal atrial fi brillation (Multi) (Primary Dx); Anxiety; Snoring; Family history of sleep apnea; Morbid obesity with BMI of 60.0-69.9, adult (Multi); Glucose intolerance (impaired glucose tolerance); Benign essential hypertension; Palpitations Start: 07-30-2024 End: 07-30-2024 [facility]ulatory [facility] [facility] Start: 07-24-2024 Non-patient / Non-visit Dr. Nirmala Arenas DO -[facility] Work Phone: Start: 07-24-2024 Non-patient / Non-visit Dr. Paige Hernández MD -[facility] Start: 07-23-2024 ambulatory Ashlynphylicia Walker all PA Facility:[facility] Start: 07-23-2024 End: 07-24-2024 Evaluation and management of inpatient Dr. Nirmala Arenas DO [facility] Work Phone: Start: 07-23-2024 Non-patient / Non-visit Dr. Marlin reyes MD -[facility] Work Phone: Start: 07-23-2024 ambulatory Ashlynphylicia Walker all PA Facility[place] Start: 07-23-2024 Non-patient / Non-visit Dr. Carmenza Craig MD -[facility] Start: 07-22-2024 ambulatory Ashlynphylicia Walker all PA Facility:[facility] Start: 07-22-2024 Non-patient / Non-visit Dr. Sindi Hernandez DO [facility] Work Phone: Start: 07-02-2024 End: 07-02-2024 ambulatory [facility] Start: 06-19-2024 End: 06-19-2024 Office outpatient visit 25 minutes Ashlyn LOPEZ-C Work Phone: [facility] Comment on above: Glucose intolerance (impaired glucose tolerance) (Primary Dx); Low vitamin B12 level; Benign essential hypertension; Hypercholesterolemia; Low ferritin; Class 3 severe obesity due to excess calories with serious comorbidity and body mass index (BMI) of 60.0 to 69.9 in adult; Depression, major, single episode, mild (CMS-HCC) Start: 06-19-2024 End: 06-19-2024 ambulatory [facility] Start: 06-17-2024 End: 06-17-2024 Patient encounter procedure Ashlyn LOPEZ -Laboratory Work Phone: Start: 06-17-2024 End: 06-17-2024 ambulatory Ashlyn Gates PA Facility:[facility] Start: 05-17-2024 End: 05-17-2024 Office outpatient visit 15 minutes Fabi Kristal TRAVEL REGISTERED NURSE PACU-CAMP NURSE Work Phone: [facility] Comment on above: Binge eating disorde r, unspecified severity Start: 05-17-2024 ambulatory [facility] Start: 04-10-2024 End: 04-10-2024 Office outpatient visit 15 minutes Fabi Giraldo TRAVEL REGISTERED NURSE PACU-CAMP NURSE Work Phone: [facility] Comment on above: Binge eating disorde r, unspecified severity (Primary Dx) Start: 04-10-2024 [facility] Start: 03-07-2024 End: 03-07-2024 Office outpatient visit 15 minutes Fabi Giraldo TRAVEL REGISTERED NURSE PACU-CAMP NURSE Work Phone: [facility] Comment on above: Binge eating disorde r, unspecified severity (Primary Dx); Benign essential hypertension Start: 03-07-2024 [facility] Start: 01-21-2024 End: 01-21-2024 [facility] Start: 12-18-2023 End: 12-18-2023 Office outpatient visit 25 minutes Ashlyn Gates PA-C Work Phone: [facility] Comment on above: Benign essential hyp ertension (Primary Dx); Low vitamin B12 level; Hypercholesterolemia; Glucose intolerance (impaired glucose tolerance); Low ferritin; 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 (Multi); Depression, major, single episode, mild (CMS-HCC); JESSICA (generalized anxiety disorder) Start: 12-08-2023 End: 12-08-2023 Office outpatient visit 15 minutes aFbi Giraldo APRN-CAMP NURSE Work Phone: [facility] Comment on above: Binge eating disorde r (Primary Dx); Benign essential hypertension Start: 12-08-2023 [facility] Start: 09-07-2023 End: 09-07-2023 Office outpatient visit 15 minutes Fabi Giraldo TRAVEL REGISTERED NURSE PACU-CAMP NURSE Work Phone: [facility] Comment on above: Binge eating disorde r Start: 09-07-[address] [facility] Start: 08-12-2023 End: 08-12-2023 Patient encounter procedure Patricia Ramey TRAVEL REGISTERED NURSE PACU-CAMP NURSE Work Phone: [facility] Comment on above: Acute viral syndrome (Primary Dx) Start: 05-25-2023 End: 05-25-2023 Office outpatient visit 15 minutes Fabi Giraldo TRAVEL REGISTERED NURSE PACU-CAMP NURSE Work Phone: [facility] Comment on above: Binge eating disorde r Start: 05-23-2023 End: 05-23-2023 Office outpatient visit 25 minutes Ashlyn LUBINC Work Phone: [facility] Comment on above: Benign essential hyp ertension (Primary Dx); Hypercholesterolemia; 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 (CMS/HCC); Glucose intolerance (impaired glucose tolerance); Low vitamin B12 level; Low ferritin; Depression, major, single episode, mild (CMS/HCC); JESSICA (generalized anxiety disorder); Fibromyalgia; Decreased libido Start: 05-17-2023 End: 05-17-2023 ambulatory [facility] Work Phone: Start: 05-17-2023 End: 05-17-2023 Patient encounter procedure [facility] Work Phone: Start: 02-15-2023 End: 02-15-2023 Office outpatient visit 15 minutes Fabi Giraldo TRAVEL REGISTERED NURSE PACU-CAMP NURSE Work Phone: [facility] Comment on above: Binge eating disorde r (Primary Dx); Benign essential hypertension Start: 01-10-2023 Patient encounter procedure Ra aroldo Gates Work Phone: [facility] Work Phone: Start: 01-10-2023 ambulatory Ashlyn Gates Facility:[id number] Start: 11-24-2022 End: 11-24-2022 Office outpatient visit 15 minutes Fabi Giraldo APRN-CAMP NURSE Work Phone: [facility] Comment on above: Binge eating disorde r (Primary Dx); Benign essential hypertension Start: 11-01-2022 End: 11-01-2022 Office outpatient visit 25 minutes Ashlyn Gates PA-C Work Phone: [facility] Comment on above: Hypercholesterolemia (Primary Dx); Dyspepsia; Benign essential hypertension; Glucose intolerance (impaired glucose tolerance); Low vitamin B12 level; Low ferritin; Fibromyalgia; Depression, major, single episode, mild (CMS/HCC); JESSICA (generalized anxiety disorder); 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 ([facility]/HCC) Start: 10-26-2022 End: 10-26-2022 Office outpatient visit 15 minutes Fabi Giraldo APRN-CAMP NURSE Work Phone: [facility] Comment on above: Binge eating disorde r (Primary Dx); Benign essential hypertension Start: 10-18-2022 End: 10-18-2022 Emergency department patient visit Ms. Ashlyn Gates Facility:[id number] Start: 09-16-2022 End: 09-16-2022 ambulatory [facility] Work Phone: Start: 09-16-2022 End: 09-16-2022 Patient encounter procedure [facility] Start: 09-03-2022 End: 09-03-2022 Emergency department patient visit JOHN LOPEZ Work Phone: [facility]-Emergency Department Start: 08-30-2022 End: 08-30-2022 Office outpatient visit 15 minutes Fabi Giraldo APRN-[employer] Work Phone: [facility] Comment on above: Binge eating disorde r (Primary Dx); Benign essential hypertension Start: 07-26-2022 End: 07-26-2022 Office outpatient visit 15 minutes Fabi Giraldo APRN-CAMP NURSE Work Phone: [facility] Comment on above: Binge eating disorde r Start: 07-18-2022 ambulatory Ms. Ashlyn lebron Tuttle Facility:[id number] Start: 06-28-2022 End: 06-28-2022 Office outpatient visit 15 minutes Fabi Giraldo TRAVEL REGISTERED NURSE PACU-CAMP NURSE Work Phone: [facility] Comment on above: Binge eating disorde r (Primary Dx) Start: 05-18-2022 End: 05-18-2022 Patient encounter procedure PA Ashlyn LOPEZ Work Phone: [facility] Start: 05-03-2022 ambulatory Ms. ASHLYN Ortiz YAJAIRA Facility:[id number] Start: 05-03-2022 Office outpatient vi sit 25 minutes Ashlyn Ortiz Yajaira Work Phone: [facility] Work Phone: Start: 05-02-2022 End: 05-02-2022 ambulatory [facility] Work Phone: Start: 05-02-2022 End: 05-02-2022 Patient encounter procedure [facility] Start: 04-26-2022 End: 04-26-2022 Office outpatient visit 15 minutes Fabi Giraldo TRAVEL REGISTERED NURSE PACU-CAMP NURSE Work Phone: [facility] Comment on above: Benign essential hyp ertension (Primary Dx); BMI 50.0-59.9, adult Start: 04-11-2022 End: 04-11-2022 Emergency department patient visit [facility] 01 Start: 03-24-2022 End: 03-24-2022 Office outpatient visit 25 minutes Fabi Giraldo TRAVEL REGISTERED NURSE PACU-CAMP NURSE Work Phone: [facility] Comment on above: Benign essential hyp ertension (Primary Dx); Metabolic syndrome; Fatigue, unspecified type Start: 02-24-2022 End: 02-24-2022 Office outpatient visit 15 minutes Fabi Giraldo TRAVEL REGISTERED NURSE PACU-CAMP NURSE Work Phone: [facility] Comment on above: BMI 50.0-59.9, adult Start: 01-26-2022 End: 01-26-2022 Office outpatient visit 15 minutes Fabi Giraldo TRAVEL REGISTERED NURSE PACU-[employer] Work Phone: [facility] Comment on above: Benign essential hyp ertension (Primary Dx); BMI 50.0-59.9, adult Start: 01-25-2022 Patient encounter procedure Ra aroldo Gates Work Phone: [facility] Work Phone: Start: 01-25-2022 ambulatory Ms. Ashlyn lebron Yajaira Facility:[id number] Start: 11-25-2021 End: 11-25-2021 Office outpatient visit 15 minutes Fabi Giraldo TRAVEL REGISTERED NURSE PACU-[employer] Work Phone: [facility] Comment on above: Class 3 severe obesi ty with serious comorbidity and body mass index (BMI) of 60.0 to 69.9 in adult, unspecified obesity type Start: 11-04-2021 Encounter for gyneco logical examination (general) (routine) without abnormal findings Ashlyn Gates Work Phone: [facility] Work Phone: Comment on above: [facility]; Start: 11-02-2021 Office outpatient vi sit 25 minutes Ashlyn B Yajaira Work Phone: [facility] Work Phone: Start: 11-02-2021 ambulatory Ms. ASHLYN Ortiz YAJAIRA Facility:[id number] Start: 10-27-2021 End: 10-27-2021 Office outpatient visit 15 minutes Fabi Giraldo TRAVEL REGISTERED NURSE PACU-[employer] Work Phone: [facility] Comment on above: Benign essential hyp ertension (Primary Dx); Class 3 severe obesity with serious comorbidity and body mass index (BMI) of 60.0 to 69.9 in adult, unspecified obesity type Start: 09-29-2021 End: 09-29-2021 Office outpatient visit 15 minutes Fabi Giraldo TRAVEL REGISTERED NURSE PACU-CAMP NURSE Work Phone: [facility] Comment on above: Benign essential hyp ertension (Primary Dx); Class 3 severe obesity with serious comorbidity and body mass index (BMI) of 60.0 to 69.9 in adult, unspecified obesity type Start: 09-02-2021 End: 09-02-2021 Office outpatient visit 15 minutes Fabi Giraldo TRAVEL REGISTERED NURSE [employer]UEnervee Work Phone: [facility] Comment on above: Benign essential hyp ertension (Primary Dx); Class 3 severe obesity with serious comorbidity and body mass index (BMI) of 60.0 to 69.9 in adult, unspecified obesity type Start: 08-03-2021 End: 08-03-2021 Office outpatient visit 15 minutes Fabi Giraldo TRAVEL REGISTERED NURSE [employer]UEnervee Work Phone: [facility] Comment on above: Benign essential hyp ertension (Primary Dx); Class 3 severe obesity with serious comorbidity and body mass index (BMI) of 60.0 to 69.9 in adult, unspecified obesity type Start: 07-06-2021 End: 07-06-2021 Office outpatient visit 15 minutes Fabi Giraldo TRAVEL REGISTERED NURSE [employer]UEnervee Work Phone: [facility] Comment on above: Class 3 severe obesi ty with serious comorbidity and body mass index (BMI) of 60.0 to 69.9 in adult, unspecified obesity type Start: 07-05-2021 Patient encounter procedure Ra aroldo Gates Work Phone: [facility] Work Phone: Start: 06-21-2021 AUDIT Ashlyn mendes Work Phone: [facility] Work Phone: Start: 06-14-2021 AUDIT Ashlyn mendes Work Phone: [facility] Work Phone: Start: 05-11-2021 Office outpatient vi sit 25 minutes Ashlyn Gates Work Phone: [facility] Work Phone: Start: 04-30-2021 End: 04-30-2021 Office outpatient visit 15 minutes Fabi Giraldo TRAVEL REGISTERED NURSE PACU-CAMP NURSE Work Phone: [facility] Comment on above: Class 3 severe obesi ty with serious comorbidity and body mass index (BMI) of 60.0 to 69.9 in adult, unspecified obesity type Start: 03-25-2021 Office outpatient vi sit 15 minutes Ashlyn Gates Work Phone: [facility] Work Phone: Start: 12-29-2020 FUV, Provider: Christopher Keenan, Status: Pen, Time: 3:00 PM Ashlyn Gates Work Phone: [facility] Work Phone: Start: 12-29-2020 Patient encounter procedure aroldo Diana Yajaira Work Phone: [facility] Work Phone: Start: 12-28-2020 Chart Update Ashlyn mendes Work Phone: [facility] Work Phone: Start: 12-22-2020 AUDIT Ashlyn mendes Work Phone: [facility] Work Phone: Start: 12-22-2020 End: 12-22-2020 Office outpatient visit 15 minutes Fabi Giraldo TRAVEL REGISTERED NURSE PACU-CAMP NURSE Work Phone: [facility] Comment on above: Benign essential hyp ertension (Primary Dx); Class 3 severe obesity with serious comorbidity and body mass index (BMI) of 60.0 to 69.9 in adult, unspecified obesity type Start: 12-11-2020 AUDIT Ashlyn mendes Work Phone: [facility] Work Phone: Start: 12-02-2020 End: 12-02-2020 Office outpatient visit 15 minutes Zenia Falcon PA-C Work Phone: [facility] Comment on above: Acute cystitis with hematuria (Primary Dx) Start: 11-03-2020 End: 11-03-2020 Office outpatient visit 15 minutes Zenia Falcon PA-C Work Phone: [facility] Comment on above: Acute maxillary sinu sitis, recurrence not specified (Primary Dx) Start: 10-20-2020 Cancer cervix - scre ening done Ashlyn Gates Work Phone: [facility] Work Phone: Comment on above: [facility]; Start: 10-20-2020 Encounter for gyneco logical examination (general) (routine) without abnormal findings Ashlyn Gates Work Phone: -[facility] Work Phone: Comment on above: [facility]; Start: 10-02-2020 End: 10-02-2020 Office outpatient visit 15 minutes Charlotte Farah MD Work Phone: [facility] Comment on above: Stress (Primary Dx); Class 3 severe obesity with serious comorbidity and body mass index (BMI) of 60.0 to 69.9 in adult, unspecified obesity type Start: 09-04-2020 End: 09-04-2020 Office outpatient visit 15 minutes Fabi Giraldo Work Phone: [facility] Comment on above: Fatigue, unspecified type (Primary Dx); Class 3 severe obesity with serious comorbidity and body mass index (BMI) of 60.0 to 69.9 in adult, unspecified obesity type Start: 08-06-2020 End: 08-06-2020 Office outpatient new 45 minutes Fabi Giraldo Work Phone: [facility] Comment on above: Benign essential hyp ertension (Primary Dx); Class 3 severe obesity with serious comorbidity and body mass index (BMI) of 60.0 to 69.9 in adult, unspecified obesity type Start: 05-07-2020 Patient encounter procedure Christopher Keenan -[facility] Work Phone: Start: 03-26-2020 Patient encounter procedure Christopher uDttonar -[facility] Work Phone: Start: 03-02-2020 Patient encounter procedure Christopher Duttonar -[facility] Work Phone: Start: 09-25-2019 Patient encounter procedure Christopher Keenan -[facility] Work Phone: Start: 09-02-2019 Patient encounter procedure Christopher Duttonar -[facility] Work Phone: Start: 03-25-2019 Patient encounter procedure Christopher Keenan -[facility] Work Phone: Start: 03-04-2019 Patient encounter procedure Christopher Keenan [facility] Work Phone: Start: 09-17-2018 End: 09-18-2018 Patient encounter procedure Christopher Keenan Facility:[facility] Start: 09-10-2018 End: 09-11-2018 Patient encounter procedure ASHLYN GATES Facility:[facility] Start: 09-07-2018 End: 09-08-2018 Patient encounter procedure ASHLYN GATES Facility:[facility] Start: 06-25-2018 End: 06-26-2018 Patient encounter procedure ASHLYN GATES Facility:[facility] Start: 06-22-2018 End: 06-23-2018 Patient encounter procedure ASHLYN GATES Facility:[facility] Start: 06-19-2018 End: 06-20-2018 Patient encounter procedure ASHLYN GATES Facility:[facility] Start: 01-24-2018 End: 01-25-2018 Patient encounter procedure Nirali Portillo Facility:[facility] Start: 01-11-2018 End: 01-12-2018 Patient encounter procedure Nirali Portillo Facility:[facility] Start: 01-10-2018 End: 01-11-2018 Patient encounter procedure Nirali Portillo Facility:[facility] Start: 01-02-2018 End: 01-03-2018 Patient encounter procedure Christopher Jonesprince Facility:[facility] Start: 11-28-2017 End: 11-29-2017 Patient encounter procedure ASHLYN GATES Facility:[facility] Start: 11-22-2017 End: 11-23-2017 Patient encounter procedure ASHLYN GATES Facility:[facility] Start: 11-20-2017 End: 11-21-2017 Patient encounter procedure Dino Dean Facility[facility] Start: 11-17-2017 Patient encounter procedure Regulo Pleitez Facility:[facility] Start: 11-16-2017 End: 11-16-2017 Patient encounter procedure Regulo Franco Tavallaee Facility:[facility] Start: 11-14-2017 End: 11-15-2017 Patient encounter procedure ASHLYN GATES Facility:[facility] Start: 10-24-2017 Patient encounter procedure Melba Herndon Gissel Facility:[facility] Start: 10-06-2017 Patient encounter procedure Melba Herndon Chauhan Facility:[facility] Start: 10-02-2017 End: 10-03-2017 Patient encounter procedure Christopher Jonesprince Facility:[facility] Start: 09-28-2017 End: 09-29-2017 Patient encounter procedure ASHLYN GATES Facility:[facility] Procedures Date Procedure Procedure Detail Performing [...] Phone: Start: 08-12-2023 Iaadiadoo influenza Patricia Kimbroughta TRAVEL REGISTERED NURSE PACU-CAMP NURSE Work Phone: Start: 08-12-2023 SARS-CoV-2 (COVID-19) Ag [Presence] in Respiratory specimen by Rapid immunoassay Patricia Maura Kimbroughta TRAVEL REGISTERED NURSE PACU-CAMP NURSE Work Phone: Start: 03-24-2021 Lipid 1996 panel [...] f 2) Zoster Vaccines (1 of 2) [facility] Start: 08-11-2031 DTaP/Tdap/Td Vaccine s (7 - Td or Tdap) DTaP/Tdap/Td Vaccines (7 - Td or Tdap) [facility] Start: 08-11-2031 Tetanus vaccination TETANUS [facility] Start: 01-24-2030 Lipid panel Lipid Panel [facility] Start: 03-24-2026 Lipid panel Lipid Panel [facility] Start: 01-24-2026 Diabetes mellitus screening Diabetes Screening [facility] Start: 07-29-2025 End: 01-29-2026 CBC W Auto Differential panel - Blood CBC and Auto Differential Lab Routine Hypercholesterolemia Benign essential hypertension Glucose intolerance (impaired glucose tolerance) Expected: 07/29/2025 (Approximate), Expires: 01/29/2026 [facility] Service Area Work Phone: Comment on above: Expected: 07/29/2025 (Approximate), Expires: 01/29/2026 Start: 07-29-2025 End: 01-29-2026 Cobalamin (Vitamin B12) [Mass/volume] in Serum or Plasma Vitamin B12 Lab Routine Hypercholesterolemia Benign essential hypertension Glucose intolerance (impaired glucose tolerance) Low vitamin B12 level Expected: 07/29/2025 (Approximate), Expires: 01/29/2026 [facility] Work Phone: Comment on above: Expected: 07/29/2025 (Approximate), Expires: 01/29/2026 Start: 07-29-2025 End: 01-29-2026 Comprehensive metabolic 2000 panel - Serum or Plasma Comprehensive Metabolic Panel Lab Routine Hypercholesterolemia Benign essential hypertension Glucose intolerance (impaired glucose tolerance) Expected: 07/29/2025 (Approximate), Expires: 01/29/2026 [facility] Work Phone: Comment on above: Expected: 07/29/2025 (Approximate), Expires: 01/29/2026 Start: 07-29-2025 End: 01-29-2026 Ferritin [Mass/volume] in Serum or Plasma Ferritin Lab Routine Hypercholesterolemia Benign essential hypertension Glucose intolerance (impaired glucose tolerance) Low ferritin Expected: 07/29/2025 (Approximate), Expires: 01/29/2026 [facility] Work Phone: Comment on above: Expected: 07/29/2025 (Approximate), Expires: 01/29/2026 Start: 07-29-2025 End: 01-29-2026 Hemoglobin A1c/Hemoglobin.total in Blood Hemoglobin A1C Lab Routine Hypercholesterolemia Benign essential hypertension Glucose intolerance (impaired glucose tolerance) Expected: 07/29/2025 (Approximate), Expires: 01/29/2026 [facility] Work Phone: Comment on above: Expected: 07/29/2025 (Approximate), Expires: 01/29/2026 Start: 07-29-2025 End: 01-29-2026 Iron and Iron binding capacity panel - Serum or Plasma Iron and TIBC Lab Routine Hypercholesterolemia Benign essential hypertension Glucose intolerance (impaired glucose tolerance) Low ferritin Expected: 07/29/2025 (Approximate), Expires: 01/29/2026 [facility] Work Phone: Comment on above: Expected: 07/29/2025 (Approximate), Expires: 01/29/2026 Start: 07-29-2025 End: 01-29-2026 Lipid 1996 panel - Serum or Plasma Lipid Panel Lab Routine Hypercholesterolemia Benign essential hypertension Glucose intolerance (impaired glucose tolerance) Expected: 07/29/2025 (Approximate), Expires: 01/29/2026 [facility] Work Phone: Comment on above: Expected: 07/29/2025 (Approximate), Expires: 01/29/2026 Start: 07-29-2025 End: 01-29-2026 Magnesium [Mass/volume] in Serum or Plasma Magnesium Lab Routine Hypercholesterolemia Benign essential hypertension Glucose intolerance (impaired glucose tolerance) Expected: 07/29/2025 (Approximate), Expires: 01/29/2026 [facility] Work Phone: Comment on above: Expected: 07/29/2025 (Approximate), Expires: 01/29/2026 Start: 07-29-2025 End: 07-29-2025 Patient encounter procedure 07/29/2025 2:00 PM EST Office Visit [facility] [address] [place] [phone] Ashlyn Gates PA-C [address] [place], [place] [id number] [facility] Start: 01-27-2025 COVID-19 Vaccine ( season) COVID-19 Vaccine () [facility] Start: 01-27-2025 Influenza vaccination Influenza Vacc ine (#1) [facility] Start: 12-17-2024 End: 12-17-2024 Patient encounter procedure 12/17/2024 3:00 PM EDT Office Visit [facility] [address] [place] [phone] Ashlyn Gates PA-C [address] [place] [phone] [facility] Start: 12-17-2024 End: 06-19-2025 CBC W Auto Differential panel - Blood CBC and Auto Differential Lab Routine Benign essential hypertension Glucose intolerance (impaired glucose tolerance) Expected: 12/17/2024 (Approximate), Expires: 06/19/2025 [facility] Service Area Work Phone: Comment on above: Expected: 12/17/2024 (Approximate), Expires: 06/19/2025 Start: 12-17-2024 End: 06-19-2025 Cobalamin (Vitamin B12) [Mass/volume] in Serum or Plasma Vitamin B12 Lab Routine Benign essential hypertension Glucose intolerance (impaired glucose tolerance) Expected: 12/17/2024 (Approximate), Expires: 06/19/2025 [facility] Work Phone: Comment on above: Expected: 12/17/2024 (Approximate), Expires: 06/19/2025 Start: 12-17-2024 End: 06-19-2025 Comprehensive metabolic 2000 panel - Serum or Plasma Comprehensive Metabolic Panel Lab Routine Benign essential hypertension Glucose intolerance (impaired glucose tolerance) Expected: 12/17/2024 (Approximate), Expires: 06/19/2025 [facility] Work Phone: Comment on above: Expected: 12/17/2024 (Approximate), Expires: 06/19/2025 Start: 12-17-2024 End: 06-19-2025 Ferritin [Mass/volume] in Serum or Plasma Ferritin Lab Routine Benign essential hypertension Glucose intolerance (impaired glucose tolerance) Low ferritin Expected: 12/17/2024 (Approximate), Expires: 06/19/2025 [facility] Work Phone: Comment on above: Expected: 12/17/2024 (Approximate), Expires: 06/19/2025 Start: 12-17-2024 End: 06-19-2025 Hemoglobin A1c/Hemoglobin.total in Blood Hemoglobin A1C Lab Routine Benign essential hypertension Glucose intolerance (impaired glucose tolerance) Expected: 12/17/2024 (Approximate), Expires: 06/19/2025 [facility] Work Phone: Comment on above: Expected: 12/17/2024 (Approximate), Expires: 06/19/2025 Start: 12-17-2024 End: 06-19-2025 Iron and Iron binding capacity panel - Serum or Plasma Iron and TIBC Lab Routine Benign essential hypertension Glucose intolerance (impaired glucose tolerance) Low ferritin Expected: 12/17/2024 (Approximate), Expires: 06/19/2025 [facility] Work Phone: Comment on above: Expected: 12/17/2024 (Approximate), Expires: 06/19/2025 Start: 12-17-2024 End: 06-19-2025 Lipid 1996 panel - Serum or Plasma Lipid Panel Lab Routine Benign essential hypertension Hypercholesterolemia Glucose intolerance (impaired glucose tolerance) Expected: 12/17/2024 (Approximate), Expires: 06/19/2025 [facility] Work Phone: Comment on above: Expected: 12/17/2024 (Approximate), Expires: 06/19/2025 Start: 12-17-2024 End: 06-19-2025 Magnesium [Mass/volume] in Serum or Plasma Magnesium Lab Routine Benign essential hypertension Glucose intolerance (impaired glucose tolerance) Expected: 12/17/2024 (Approximate), Expires: 06/19/2025 [facility] Work Phone: Comment on above: Expected: 12/17/2024 (Approximate), Expires: 06/19/2025 Start: 12-17-2024 End: 06-19-2025 Thyrotropin [Units/volume] in Serum or Plasma Thyroid Stimulating Hormone Lab Routine Benign essential hypertension Hypercholesterolemia Glucose intolerance (impaired glucose tolerance) Expected: 12/17/2024 (Approximate), Expires: 06/19/2025 [facility] Work Phone: Comment on above: Expected: 12/17/2024 (Approximate), Expires: 06/19/2025 Start: 12-17-2024 End: 06-19-2025 Thyroxine (T4) free [Mass/volume] in Serum or Plasma Thyroxine, Free Lab Routine Benign essential hypertension Hypercholesterolemia Glucose intolerance (impaired glucose tolerance) Expected: 12/17/2024 (Approximate), Expires: 06/19/2025 [facility] Work Phone: Comment on above: Expected: 12/17/2024 (Approximate), Expires: 06/19/2025 Start: 11-13-2024 End: 11-13-2024 Patient encounter procedure 11/13/2024 9:00 AM EDT Office Visit [facility] [address] [place] [phone] Ashlyn Gates, PAEulaliaC [address] [place] [address] [facility] Start: 08-07-2024 End: 08-07-2024 Patient encounter procedure 08/07/2024 9:00 AM EDT Office Visit [facility] [address] [place] [phone] Fabi Giraldo, TRAVEL REGISTERED NURSE PACU-CAMP NURSE [address] [place] [phone] [facility] Start: 08-01-2024 [facility] Start: 08-01-2024 [facility] Start: 07-30-2024 End: 07-30-2025 In-Center Sleep Study In-Center Sleep Study Sleep Center Routine Anxiety Snoring Family history of sleep apnea Morbid obesity with BMI of 60.0-69.9, adult (Multi) Expected: 07/30/2024, Expires: 07/30/2025 [facility] Service Area Work Phone: Comment on above: Expected: 07/30/2024 , Expires: 07/30/2025 Start: 07-24-2024 Patient discharge [facility] Start: 07-23-2024 Care planning and problem solving actions [facility] Start: 07-23-2024 Admission procedure [facility] Start: 07-23-2024 [facility] Start: 07-23-2024 Care planning and problem solving actions [facility] Start: 07-22-2024 End: 07-23-2024 [facility] Start: 07-22-2024 Following clinical pathway protocol [facility] Start: 07-22-2024 Assessment of risk o f venous thromboembolism [facility] Start: 07-22-2024 Insertion of cathete r into peripheral vein [facility] Start: 07-22-2024 Measuring intake and output [facility] Start: 07-22-2024 Oxygen therapy [facility] Start: 07-22-2024 Providing care according to standard [facility] Start: 07-22-2024 Provision of activit y privileges [facility] Start: 07-22-2024 Referral to quality facilitator [facility] Start: 07-22-2024 Referral to service [facility] Start: 07-22-2024 Admission procedure [facility] Start: 06-19-2024 End: 12-17-2024 CBC W Auto Differential panel - Blood CBC and Auto Differential Lab Routine Benign essential hypertension Glucose intolerance (impaired glucose tolerance) Expected: 06/19/2024 (Approximate), Expires: 12/17/2024 [facility] Service Area Work Phone: Comment on above: Expected: 06/19/2024 (Approximate), Expires: 12/17/2024 Start: 06-19-2024 End: 12-17-2024 Cobalamin (Vitamin B12) [Mass/volume] in Serum or Plasma Vitamin B12 Lab Routine Low vitamin B12 level Benign essential hypertension Glucose intolerance (impaired glucose tolerance) Expected: 06/19/2024 (Approximate), Expires: 12/17/2024 [facility] Work Phone: Comment on above: Expected: 06/19/2024 (Approximate), Expires: 12/17/2024 Start: 06-19-2024 End: 12-17-2024 Comprehensive metabolic 2000 panel - Serum or Plasma Comprehensive Metabolic Panel Lab Routine Benign essential hypertension Glucose intolerance (impaired glucose tolerance) Expected: 06/19/2024 (Approximate), Expires: 12/17/2024 [facility] Work Phone: Comment on above: Expected: 06/19/2024 (Approximate), Expires: 12/17/2024 Start: 06-19-2024 End: 12-17-2024 Ferritin [Mass/volume] in Serum or Plasma Ferritin Lab Routine Benign essential hypertension Glucose intolerance (impaired glucose tolerance) Low ferritin Expected: 06/19/2024 (Approximate), Expires: 12/17/2024 [facility] Work Phone: Comment on above: Expected: 06/19/2024 (Approximate), Expires: 12/17/2024 Start: 06-19-2024 End: 12-17-2024 Hemoglobin A1c/Hemoglobin.total in Blood Hemoglobin A1C Lab Routine Benign essential hypertension Glucose intolerance (impaired glucose tolerance) Expected: 06/19/2024 (Approximate), Expires: 12/17/2024 [facility] Work Phone: Comment on above: Expected: 06/19/2024 (Approximate), Expires: 12/17/2024 Start: 06-19-2024 End: 12-17-2024 Iron and Iron binding capacity panel - Serum or Plasma Iron and TIBC Lab Routine Benign essential hypertension Glucose intolerance (impaired glucose tolerance) Low ferritin Expected: 06/19/2024 (Approximate), Expires: 12/17/2024 [facility] Work Phone: Comment on above: Expected: 06/19/2024 (Approximate), Expires: 12/17/2024 Start: 06-19-2024 End: 12-17-2024 Lipid 1996 panel - Serum or Plasma Lipid Panel Lab Routine Benign essential hypertension Hypercholesterolemia Glucose intolerance (impaired glucose tolerance) Expected: 06/19/2024 (Approximate), Expires: 12/17/2024 [facility] Work Phone: Comment on above: Expected: 06/19/2024 (Approximate), Expires: 12/17/2024 Start: 06-19-2024 End: 12-17-2024 Magnesium [Mass/volume] in Serum or Plasma Magnesium Lab Routine Benign essential hypertension Glucose intolerance (impaired glucose tolerance) Expected: 06/19/2024 (Approximate), Expires: 12/17/2024 [facility] Work Phone: Comment on above: Expected: 06/19/2024 (Approximate), Expires: 12/17/2024 Start: 06-19-2024 End: 06-19-2024 Patient encounter procedure 06/19/2024 2:00 PM EST Office Visit [facility] [address] [place] [phone] Ashlyn Gates PAEulaliaC [address] [place] [address] [facility] Start: 06-04-2024 End: 06-04-2024 Patient encounter procedure 06/04/2024 9:00 AM EST Office Visit [facility] [address] [place] [address] Fabi Giraldo, TRAVEL REGISTERED NURSE PACU-CAMP NURSE [address] [place] [address] [facility] Start: 05-08-2024 End: 05-08-2024 Patient encounter procedure 05/08/2024 8:20 AM EST Office Visit [address] [place] [address] Fabi Giraldo APRN-CAMP NURSE [address] [place] [address] [facility] Start: 03-07-2024 End: 03-07-2024 Patient encounter procedure 03/07/2024 1:40 PM EDT Office Visit [address] [place] [address] Fabi Giraldo APRN-CAMP NURSE [address] [place] [address] [facility] Start: 01-28-2024 COVID-19 Vaccine ( season) COVID-19 Vaccine ( season) [facility] Start: 01-28-2024 COVID-19 VACCINE ( season) [facility]ACCINE ( [facility] Start: 01-28-2024 COVID-19 VACCINE ( season) COVID-19 VACCINE ( season) [facility] Start: 01-28-2024 Influenza vaccination INFLUENZA VACC INE (#1) [facility] Start: 12-08-2023 End: 12-08-2023 Patient encounter procedure 12/08/2023 2:20 PM EDT Office Visit [address] [place] [address] Fabi Giraldo APRN-CAMP NURSE [address] [place] [address] [facility] Start: 11-22-2023 End: 05-23-2024 CBC W Auto Differential panel - Blood CBC and Auto Differential Lab Routine Hypercholesterolemia Glucose intolerance (impaired glucose tolerance) Expected: 11/22/2023 (Approximate), Expires: 05/23/2024 [facility] Service Area Work Phone: Comment on above: Expected: 11/22/2023 (Approximate), Expires: 05/23/2024 Start: 11-22-2023 End: 05-23-2024 Cobalamin (Vitamin B12) [Mass/volume] in Serum or Plasma Vitamin B12 Lab Routine Low vitamin B12 level Expected: 11/22/2023 (Approximate), Expires: 05/23/2024 [facility] Work Phone: Comment on above: Expected: 11/22/2023 (Approximate), Expires: 05/23/2024 Start: 11-22-2023 End: 05-23-2024 Comprehensive metabolic 2000 panel - Serum or Plasma Comprehensive Metabolic Panel Lab Routine Hypercholesterolemia Glucose intolerance (impaired glucose tolerance) Expected: 11/22/2023 (Approximate), Expires: 05/23/2024 [facility] Work Phone: Comment on above: Expected: 11/22/2023 (Approximate), Expires: 05/23/2024 Start: 11-22-2023 End: 05-23-2024 Ferritin [Mass/volume] in Serum or Plasma Ferritin Lab Routine Low ferritin Expected: 11/22/2023 (Approximate), Expires: 05/23/2024 [facility] Work Phone: Comment on above: Expected: 11/22/2023 (Approximate), Expires: 05/23/2024 Start: 11-22-2023 End: 05-23-2024 Hemoglobin A1c/Hemoglobin.total in Blood Hemoglobin A1C Lab Routine Glucose intolerance (impaired glucose tolerance) Expected: 11/22/2023 (Approximate), Expires: 05/23/2024 [facility] Work Phone: Comment on above: Expected: 11/22/2023 (Approximate), Expires: 05/23/2024 Start: 11-22-2023 End: 05-23-2024 Iron and Iron binding capacity panel - Serum or Plasma Iron and TIBC Lab Routine Low ferritin Expected: 11/22/2023 (Approximate), Expires: 05/23/2024 [facility] Work Phone: Comment on above: Expected: 11/22/2023 (Approximate), Expires: 05/23/2024 Start: 11-22-2023 End: 05-23-2024 Lipid 1996 panel - Serum or Plasma Lipid Panel Lab Routine Hypercholesterolemia Expected: 11/22/2023 (Approximate), Expires: 05/23/2024 [facility] Work Phone: Comment on above: Expected: 11/22/2023 (Approximate), Expires: 05/23/2024 Start: 11-22-2023 End: 05-23-2024 Magnesium [Mass/volume] in Serum or Plasma Magnesium Lab Routine Hypercholesterolemia Expected: 11/22/2023 (Approximate), Expires: 05/23/2024 [facility] Work Phone: Comment on above: Expected: 11/22/2023 (Approximate), Expires: 05/23/2024 Start: 11-22-2023 End: 05-23-2024 Thyrotropin [Units/volume] in Serum or Plasma Thyroid Stimulating Hormone Lab Routine Hypercholesterolemia Expected: 11/22/2023 (Approximate), Expires: 05/23/2024 [facility] Work Phone: Comment on above: Expected: 11/22/2023 (Approximate), Expires: 05/23/2024 Start: 11-22-2023 End: 05-23-2024 Thyroxine (T4) free [Mass/volume] in Serum or Plasma Thyroxine, Free Lab Routine Hypercholesterolemia Expected: 11/22/2023 (Approximate), Expires: 05/23/2024 [facility] Work Phone: Comment on above: Expected: 11/22/2023 (Approximate), Expires: 05/23/2024 Start: 11-22-2023 End: 11-22-2023 Patient encounter procedure 11/22/2023 10:40 AM EDT Office Visit [facility] [address] [place] [address] Ashlyn Gates PA-C [address] [place] [address] [facility] Start: 11-17-2023 Screening for malignant neoplasm of cervix [facility] Start: 11-01-2023 Diabetes mellitus screening Diabetes Screening [facility] Start: 08-24-2023 End: 08-24-2023 Patient encounter procedure 08/24/2023 8:20 AM EDT Office Visit [address] [phone] Fabi Giraldo, TRAVEL REGISTERED NURSE PACU-CAMP NURSE [address] [place] [address] [facility] Start: 07-24-2023 End: 07-24-2023 Patient encounter procedure 07/24/2023 9:20 AM EST Office Visit [facility] [address] [place] [address] Ashlyn Gates, MARLON [address] [place] [address] [facility] Start: 05-12-2023 End: 05-12-2023 Patient encounter procedure 05/12/2023 8:20 AM EST Office Visit [address] [phone] Fabi Giraldo, TRAVEL REGISTERED NURSE PACU-CAMP NURSE [address] [place] [phone] [facility] Start: 05-03-2023 End: 11-02-2023 CBC W Auto Differential panel - Blood CBC and Auto Differential Lab Routine Glucose intolerance (impaired glucose tolerance) Hypercholesterolemia Expected: 05/03/2023 (Approximate), Expires: 11/02/2023 [facility] Service Area Work Phone: Comment on above: Expected: 05/03/2023 (Approximate), Expires: 11/02/2023 Start: 05-03-2023 End: 11-02-2023 Cobalamin (Vitamin B12) [Mass/volume] in Serum or Plasma Vitamin B12 Lab Routine Glucose intolerance (impaired glucose tolerance) Low vitamin B12 level Hypercholesterolemia Expected: 05/03/2023 (Approximate), Expires: 11/02/2023 [facility] Work Phone: Comment on above: Expected: 05/03/2023 (Approximate), Expires: 11/02/2023 Start: 05-03-2023 End: 11-02-2023 Comprehensive metabolic 2000 panel - Serum or Plasma Comprehensive Metabolic Panel Lab Routine Glucose intolerance (impaired glucose tolerance) Hypercholesterolemia Expected: 05/03/2023 (Approximate), Expires: 11/02/2023 [facility] Work Phone: Comment on above: Expected: 05/03/2023 (Approximate), Expires: 11/02/2023 Start: 05-03-2023 End: 11-02-2023 Ferritin [Mass/volume] in Serum or Plasma Ferritin Lab Routine Glucose intolerance (impaired glucose tolerance) Low ferritin Hypercholesterolemia Expected: 05/03/2023 (Approximate), Expires: 11/02/2023 [facility] Work Phone: Comment on above: Expected: 05/03/2023 (Approximate), Expires: 11/02/2023 Start: 05-03-2023 End: 11-02-2023 Hemoglobin A1c/Hemoglobin.total in Blood Hemoglobin A1C Lab Routine Glucose intolerance (impaired glucose tolerance) Hypercholesterolemia Expected: 05/03/2023 (Approximate), Expires: 11/02/2023 [facility] Work Phone: Comment on above: Expected: 05/03/2023 (Approximate), Expires: 11/02/2023 Start: 05-03-2023 End: 11-02-2023 Iron and Iron binding capacity panel - Serum or Plasma Iron and TIBC Lab Routine Glucose intolerance (impaired glucose tolerance) Low ferritin Hypercholesterolemia Expected: 05/03/2023 (Approximate), Expires: 11/02/2023 [facility] Work Phone: Comment on above: Expected: 05/03/2023 (Approximate), Expires: 11/02/2023 Start: 05-03-2023 End: 11-02-2023 Lipid 1996 panel - Serum or Plasma Lipid Panel Lab Routine Glucose intolerance (impaired glucose tolerance) Hypercholesterolemia Expected: 05/03/2023 (Approximate), Expires: 11/02/2023 [facility] Work Phone: Comment on above: Expected: 05/03/2023 (Approximate), Expires: 11/02/2023 Start: 05-03-2023 End: 11-02-2023 Magnesium [Mass/volume] in Serum or Plasma Magnesium Lab Routine Glucose intolerance (impaired glucose tolerance) Low ferritin Hypercholesterolemia Expected: 05/03/2023 (Approximate), Expires: 11/02/2023 [facility] Work Phone: Comment on above: Expected: 05/03/2023 (Approximate), Expires: 11/02/2023 Start: 05-03-2023 End: 05-03-2023 Patient encounter procedure 05/03/2023 2:00 PM EST Office Visit [facility] [address] [place] [phone] Ashlyn Gates, PAEulaliaC [address] [place] [address] [facility] Start: 02-15-2023 End: 02-15-2023 Patient encounter procedure 02/15/2023 8:00 AM EDT Office Visit [facility] [address] [place] [phone] Fabi Giraldo APRN-CAMP NURSE [address] [place] [phone] [facility] Start: 09-01-2023 COVID-19 Vaccine ( season) COVID-19 Vaccine () [facility] Start: 01-27-2023 COVID-19 VACCINE ( season) COVID-19 VACCINE () [facility] Start: 01-27-2023 Influenza vaccination INFLUENZA VACC INE (#1) [facility] Start: 11-24-2022 End: 11-24-2022 Patient encounter procedure 11/24/2022 Office Visit Family Medicine Fabi Giraldo, TRAVEL REGISTERED NURSE PACU-CAMP NURSE [address] [place] [phone] [facility] Start: 11-01-2022 FUV, Provider: Ashlyn Gates, Status: Pen, Time: 2:00 PM FUV, Provider: Ashlyn Gates, Status: Pen, Time: 2:00 PM [facility] Work Phone: Start: 10-26-2022 End: 10-26-2022 Patient encounter procedure 10/26/2022 Office Visit Family Medicine Fabi Giraldo, TRAVEL REGISTERED NURSE PACU-CAMP NURSE [address] [place] [phone] [facility] Start: 09-03-2022 [facility] Start: 08-23-2022 End: 08-23-2022 Patient encounter procedure 08/23/2022 Office Visit Family Medicine Fabi Giraldo, TRAVEL REGISTERED NURSE PACU-CAMP NURSE [address] [place] [address] [facility] Start: 08-12-2022 COVID-19 Vaccine (4 - Booster for Moderna series) COVID-19 Vaccine (4 - Booster for Moderna series) [facility] Start: 08-12-2022 COVID-19 Vaccine (4 - Moderna series) COVID-19 Vaccine (4 - Moderna series) [facility] Start: 07-26-2022 End: 07-26-2022 Patient encounter procedure 07/26/2022 Office Visit Family Medicine Fabi Giraldo APRN-CAMP NURSE [address] [place] [phone] [facility] Start: 07-18-2022 FUV, Provider: Christopher Keenan, Status: Pen, Time: 3:30 PM FUV, Provider: Christopher Keenan, Status: Pen, Time: 3:30 PM [facility] Work Phone: Start: 07-18-2022 Patient encounter procedure [facility] Start: 06-21-2022 End: 06-21-2022 Patient encounter procedure 06/21/2022 Office Visit Family Medicine Fabi Giraldo APRN-CAMP NURSE [address] [place] [phone] [facility] Start: 05-03-2022 FUV, Provider: Ashlyn Gates, Status: Pen, Time: 2:40 PM FUV, Provider: Ashlyn Gates, Status: Pen, Time: 2:40 PM -[facility] Work Phone: Start: 05-03-2022 Patient encounter procedure [facility] Start: 04-26-2022 End: 04-26-2022 Patient encounter procedure 04/26/2022 Office Visit Family Medicine Fabi Giraldo APRN-CAMP NURSE [address] [place] [address] [facility] Start: 03-24-2022 End: 03-24-2022 Patient encounter procedure 03/24/2022 Office Visit Family Medicine Fabi Giraldo APRN-CAMP NURSE [address] [place] [address] [facility] Start: 02-24-2022 End: 02-24-2022 Patient encounter procedure 02/24/2022 Office Visit Family Medicine Fabi Giraldo APRN-CNP [address] [place] [address] [facility] Start: 01-27-2022 Influenza vaccination INFLUENZA VACC INE (#1) [facility] Start: 01-03-2022 FUV, Provider: Christopher Keenan, Status: Pen, Time: 1:15 PM FUV, Provider: Christopher Keenan, Status: Pen, Time: 1:15 PM [facility] Work Phone: Start: 12-23-2021 End: 12-23-2021 Patient encounter procedure 12/23/2021 Office Visit Family Medicine Fabi Giraldo APRN-CNP [address] [place] [address] [facility] Start: 11-25-2021 End: 11-25-2021 Patient encounter procedure 11/25/2021 Office Visit Family Medicine Fabi Giraldo APRN-CNP [address] [place] [address] [facility] Start: 10-27-2021 End: 10-27-2021 Patient encounter procedure 10/27/2021 Office Visit Family Medicine Fabi Giraldo APRN-CAMP NURSE [address] [place] [address] [facility] Start: 09-29-2021 End: 09-29-2021 Patient encounter procedure 09/29/2021 Office Visit Family Medicine Fabi Giraldo APRN-CNP [address] [place] [address] [facility] Start: 09-23-2021 FUV, Provider: Ashlyn Gates, Status: Pen, Time: 2:40 PM FUV, Provider: Ashlyn Gates, Status: Pen, Time: 2:40 PM [facility] Work Phone: Start: 09-02-2021 End: 09-02-2021 Patient encounter procedure 09/02/2021 Office Visit [facility] Fabi Giraldo APRN-CAMP NURSE [address] [place] [address] [facility] Start: 08-03-2021 End: 08-03-2021 Patient encounter procedure 08/03/[address] [facility] Fabi Giraldo APRN-CAMP NURSE [address] [place] [address] [facility] Start: 08-03-2021 Tetanus vaccination TETANUS [facility] Start: 07-05-2021 FUV, Provider: Christopher Keenan, Status: Pen, Time: 3:00 PM FUV, Provider: Christopher Keenan, Status: Pen, Time: 3:00 PM [facility] Work Phone: Start: 06-01-2021 End: 06-01-2021 Patient encounter procedure 06/01/2021 Office Visit [facility] Medicine Fabi Giraldo APRN-CAMP NURSE [address] [place] [address] [facility] Start: 05-18-2021 VIRFUVHOME, Provider : Ashlyn Gates, Status: Pen, Time: 12:40 PM VIRFUVHOME, Provider: Ashlyn Gates, Status: Pen, Time: 12:40 PM [facility] Work Phone: Start: 03-25-2021 EPV, Provider: Nirali Portillo, Status: Pen, Time: 3:20 PM EPV, Provider: Nirali Portillo, Status: Pen, Time: 3:20 PM [facility] Work Phone: Start: 02-17-2021 COVID-19 VACCINE (3 - Booster for Moderna series) COVID-19 VACCINE (3 - Booster for Moderna series) [facility] Start: 01-27-2021 Influenza vaccination A [facility] Start: 01-26-2021 End: 01-26-2021 Patient encounter procedure 01/26/2021 Office Visit Family Medicine Fabi Giraldo APRN-CAMP NURSE [address] [place] [phone] [facility] Start: 12-29-2020 FUV, Provider: Christopher Keenan, Status: Pen, Time: 3:00 PM FUV, Provider: Christopher Keenan, Status: Pen, Time: 3:00 PM -[facility] Work Phone: Start: 12-22-2020 End: 12-22-2020 Patient encounter procedure 12/22/2020 Office Visit Family Medicine Fabi Giraldo APRN-CAMP NURSE [address] [place] [address] [phone] [facility] Start: 11-12-2020 COVID-19 VACCINE (3 - Booster for Moderna series) COVID-19 VACCINE (3 - Booster for Moderna series) [facility] Start: 11-03-2020 End: 11-03-2020 Patient encounter procedure 11/03/2020 Office Visit Family Medicine Fabi Giraldo APRN-CAMP NURSE [address] [place] [address] [phone] [facility] Start: 10-02-2020 End: 10-02-2020 Office Visit 10/02/2020 Office Visit Family Medicine Fabi Giraldo APRN-CAMP NURSE [address] [place] [address] [phone] [facility] Start: 09-18-2020 COVID-19 VACCINE (2 - Moderna 2-dose series) COVID-19 VACCINE (2 - Moderna 2-dose series) [facility] Start: 09-17-2020 End: 09-17-2020 Immunization 09/17/2020 Immunization Family [facility] [facility] Start: 09-04-2020 End: 09-04-2020 Office Visit 09/04/2020 Office Visit Family Medicine Fabi Giraldo, TRAVEL REGISTERED NURSE PACU-CAMP NURSE [address] [place] [id number] [facility] Start: 03-26-2020 Blood count complete auto&auto difrntl wbc Complete Blood Count + Differential [facility] Work Phone: Start: 03-26-2020 Cobalamin (Vitamin B12) [Mass/Vol] Vitamin B12, Serum [facility] Work Phone: Start: 03-26-2020 Comprehensive metabolic 2000 panel Comprehensive Metabolic Panel [facility] Work Phone: Start: 03-26-2020 HbA1c (Bld) [Mass fraction] Hemoglobin A1C [facility] Work Phone: Start: 03-26-2020 Lipid panel Lipid Panel [facility] Work Phone: Start: 01-28-2020 Influenza vaccination INFLUENZA VACC INE (#1) [facility] Start: 09-11-2019 Assay of free thyroxine T4 - Free Thyroxine, Serum [facility] Work Phone: Start: 09-11-2019 Cobalamin (Vitamin B12) [Mass/Vol] Vitamin B12, Serum [facility] Work Phone: Start: 09-11-2019 Comprehensive metabolic 2000 panel Comprehensive Metabolic Panel [facility] Work Phone: Start: 09-11-2019 TSH Qn TSH - Thyroid Stimulating Hormone, Serum [facility] Work Phone: Start: 2018 DTaP/Tdap/Td Vaccine s (2 - Tdap) DTaP/Tdap/Td Vaccines (2 - Tdap) [facility] Start: 2017 Screening for malignant neoplasm of cervix [facility] Start: 2015 Third diphtheria, tetanus and acellular pertussis (DTaP) vaccination TDAP (ADULT) [facility] Start: 2014 Hepatitis C screening Hepatitis C Sc reening [facility] Start: 2014 Tetanus vaccination TETANUS [facility] Start: 02-04-2013 HPV Vaccines (3 - 3-dose series) HPV Vaccines (3 - 3-dose series) [facility] Start: 02-04-2013 Vaccination for marybeth n papillomavirus HPV VACCINE ADOL (3 - 3-dose series) [facility] Start: 12-27-2012 HPV VACCINE (3 - 3-dose series) HPV VACCINE (3 - 3-dose series) [facility] Start: 12-27-2012 HPV Vaccines (3 - 3-dose series) HPV Vaccines (3 - 3-dose series) [facility] Start: 2012 Screening for Chlamydia trachomatis CHLAMYDIA SCREEN [facility] Start: 2011 HIV screening HIV SCREENING DISCUSSI ON [facility] Start: 2009 HIV screening HIV SCREENING DISCUSSI ON [facility] Start: 2009 Varicella vaccination Varicell a Vaccines (1 of 2 - 13+ 2-dose series) [facility] Start: 2007 Vaccination for marybeth n papillomavirus HPV VACCINE ADOL (1 - 2-dose series) [facility] Start: 1997 MMR Vaccines (1 of 1 - Standard series) MMR Vaccines (1 of 1 - Standard series) [facility] Start: 1996 GONORRHEA SCREEN GONORRHEA SCREEN [facility] Start: 1996 Hepatitis C antibody , confirmatory test HEPATITIS C VIRUS SCREENING [facility] Start: 1996 Hepatitis C screening HEPATITIS C ANNIKA SCREENING [facility] Start: 1996 HIV screening HIV Screening [facility] Start: 1996 Screening for Chlamydia trachomatis GONORRHEA SCREEN [facility] Start: 1996 Yearly Adult Physical Yearly Adult P hysical [facility] Helicobacter pylori Ag [Presence] in Stool by Immunoassay [facility] Ova and parasites identified in Unspecified specimen by Light microscopy [facility] Patient Education [facility] Work Phone: Patient referral [facility] Work Phone: Protein measurement [facility] Work Phone: [facility] NEGATED: Highlighted row has been ruled out! Planned Goals not documented [facility] Work Phone: Immunizations Immunization Date Immunization Notes Care Provider Martin mullen 04-22-2024 influenza, seasonal, injectable, preservative free Ashlyn Gates PA-C Work Phone: [facility] Work Phone: 04-22-2024 influenza virus vaccine, unspecified formulation Ashlyn Gates PA-C Work Phone: [facility] Work Phone: 02-23-2023 influenza, injectabl e, quadrivalent, preservative free [facility] 02-23-2023 influenza virus vaccine, unspecified formulation Fabi Giraldo TRAVEL REGISTERED NURSE PACU-CAMP NURSE Work Phone: [facility] 06-17-2022 Covid Kristophera Milese nt Booster PA Ashlyn LOPEZ Work Phone: [facility] 04-14-2022 influenza, injectabl e, quadrivalent, preservative free [facility] 04-14-2022 influenza, seasonal, injectable Ashlyn Gates Work Phone: [facility] 04-14-2022 influenza virus vaccine, unspecified formulation Fabi Giraldo TRAVEL REGISTERED NURSE PACU-CAMP NURSE Work Phone: [facility] 08-12-2021 hepatitis B vaccine, adult dosage Ashlyn Gates Work Phone: [facility] 08-10-2021 tetanus toxoid, redu lakshmi diphtheria toxoid, and acellular pertussis vaccine, adsorbed Ashlyn Gates Work Phone: [facility] 04-10-2021 Moderna COVID-19 Vaccine 100 MCG/0.5ML Intramuscular Suspension Ashlyn Gates Work Phone: [facility] Work Phone: 03-25-2021 influenza, injectabl e, quadrivalent, preservative free; Translations: [Flulaval Quadrivalent 0.5 ML Intramuscular Suspension Prefilled Syringe] Ashlyn Gates Work Phone: [facility] Work Phone: Comment on above: Series: 03-25-2021 influenza virus vaccine, unspecified formulation Fabi DENGCAMP NURSE Work Phone: [facility] 09-17-2020 SARS-COV-2 (COVID-19 ), Mrna, Lnp-s, Pf, 100 Mcg/ 0.5 Ml Dose [facility] Work Phone: [facility] Comment on above: Series: 08-21-2020 SARS-COV-2 (COVID-19 ), Mrna, Lnp-s, Pf, 100 Mcg/ 0.5 Ml Dose [facility] Irizarryhart [facility] Comment on above: Series: 02-24-2020 influenza, seasonal, injectable Ashlyn Gates Work Phone: [facility] Work Phone: Comment on above: Series: 02-24-2020 influenza, seasonal, injectable Christopher Zumbar [facility] Work Phone: 10-04-2012 hepatitis A vaccine, pediatric/adolescent dosage, 2 dose schedule Ashlyn Gates Work Phone: [facility] Work Phone: 10-04-2012 human papilloma viru s vaccine, quadrivalent Ashlyn Gates Work Phone: [facility] Work Phone: 10-04-2012 HPV, unspecified formulation Ashlyn Gates PA-C Work Phone: [facility] Work Phone: 08-04-2011 hepatitis A vaccine, pediatric/adolescent dosage, 2 dose schedule Ashlyn Gates Work Phone: [facility] Work Phone: 08-04-2011 human papilloma viru s vaccine, quadrivalent Ashlyn Gates Work Phone: [facility] Work Phone: 08-04-2011 meningococcal polysaccharide (groups A, C, Y and W-135) diphtheria toxoid conjugate vaccine (MCV4P) Ashlyn Gates Work Phone: [facility] Work Phone: 08-04-2011 tetanus toxoid, redu lakshmi diphtheria toxoid, and acellular pertussis vaccine, adsorbed Ashlyn Gates Work Phone: [facility] Work Phone: 08-04-2011 varicella virus vaccine Adrianna justin Gates Work Phone: [facility] Work Phone: 10-27-2000 hepatitis B vaccine, pediatric or pediatric/adolescent dosage Ashlyn Gates Work Phone: [facility] Work Phone: 10-27-2000 poliovirus vaccine, inactivated Ashlyn Gates Work Phone: [facility] Work Phone: 10-13-2000 diphtheria, tetanus toxoids and acellular pertussis vaccine, unspecified formulation Ashlyn Gates Work Phone: [facility] Work Phone: 10-13-2000 measles, mumps and rubella virus vaccine Ashlyn Gates Work Phone: [facility] Work Phone: 08-08-2000 diphtheria, tetanus toxoids and acellular pertussis vaccine, unspecified formulation Ashlyn Gates Work Phone: [facility] Work Phone: 08-08-2000 measles, mumps and rubella virus vaccine Ashlyn Walkerall Work Phone: [facility] Work Phone: 08-08-2000 varicella virus vaccine Adrianna Titusenhall Work Phone: [facility] Work Phone: 02-26-1997 diphtheria, tetanus toxoids and acellular pertussis vaccine, unspecified formulation Ashlyn B Yajaira Work Phone: [facility] Work Phone: 02-26-1997 haemophilus influenz ae type b vaccine, conjugate unspecified formulation Ashlyn Gates Work Phone: [facility] Work Phone: 02-26-1997 trivalent poliovirus vaccine, live, oral Ashlyn Gates Work Phone: [facility] Work Phone: 1996 diphtheria, tetanus toxoids and acellular pertussis vaccine, unspecified formulation Ashlyn Gates Work Phone: [facility] Work Phone: 1996 haemophilus influenz ae type b vaccine, conjugate unspecified formulation Ashlyn B Yajaira Work Phone: [facility] Work Phone: 1996 trivalent poliovirus vaccine, live, oral Ashlyn B Yajaira Work Phone: [facility] Work Phone: 1996 DTP-Haemophilus influenzae type b conjugate vaccine Ashlyn B Yajaira Work Phone: [facility] Work Phone: 1996 hepatitis B vaccine, pediatric or pediatric/adolescent dosage Ashlyn Gates Work Phone: [facility] Work Phone: 1996 trivalent poliovirus vaccine, live, oral Ashlyn Gates Work Phone: [facility] Work Phone: 1996 hepatitis B vaccine, pediatric or pediatric/adolescent dosage Ashlyn Gates Work Phone: [facility] Work Phone: Payers Date Payer Category Payer Self-pay [id number] 2022 Managed Care (Private) 1.2.8 [id number] 2022 Managed Care (unspecified) [employer] [id number] .[id number] 2022 Unknown [id number] 2020 Private Health Insurance [id number] [id number] .7.3.157036.315 2020 Private Health Insurance 1.2 .[id number] .7.3.745379.315 2017 Unknown 1996 Unknown [id number] 2.16.840.1.019897.3.579.2 .717 1996 Unknown [id number] 2.16.840.1.566945.3.579.2 .1996 Unknown [id number] 2.16.840.1.051135.3.579.2 .1996 Unknown [id number] 2.16.840.1.815782.3.579.2 .1996 Unknown [id number] 2.16.840.1.891956.3.579.2 .1996 Unknown [id number] 2.16.840.1.427766.3.579.2 .1996 Unknown [id number] 2.16.840.1.226985.3.579.2 .1996 Unknown [id number] 2.16.840.1.729679.3.579.2 .1996 Unknown [id number] 2.16.840.1.120817.3.579.2 .1996 Unknown [id number] 2.16.840.1.312141.3.579.2 .1996 Unknown [id number] 2.16.840.1.972680.3.579.2 .1996 Unknown [id number] 2.16.840.1.690910.3.579.2 .356 1996 Unknown [id number] 2.16.840.1.314331.3.579.2 .356 1996 Unknown [id number] 2.16.840.1.652066.3.579.2 .1068 1996 Unknown [id number] 2.16.840.1.396961.3.579.2 .1069 1996 Unknown [id number] 2.16.840.1.124063.3.579.2 .1069 1996 Unknown [id number] 2.16.840.1.240624.3.579.2 .1069 1996 Unknown [id number] 2.16.840.1.428493.3.579.2 .1069 1996 Unknown [id number] 2.16.840.1.877113.3.579.2 .902 1996 Unknown [id number] 2.16.840.1.318483.3.579.2 .983 1996 Unknown [id number] 2.16.840.1.697025.3.579.2 .983 1996 Unknown [id number] 2.16.840.1.985492.3.579.2 .983 1996 Unknown [id number] 2.16.840.1.144279.3.579.2 .983 1996 Unknown [id number] 2.16840.1.261693.3.579.2 .983 1996 Unknown [id number] 2.16.840.1.222247.3.579.2 .983 1996 Unknown [id number] 2.16.840.1.732784.3.579.2 .1243 1996 Unknown [id number] 2.16.840.1.044465.3.579.2 .1244 1996 Unknown [id number] 2.16.840.1.313271.3.579.2 .1244 1996 Unknown [id number] 2.16.840.1.327039.3.579.2 .1244 1996 Unknown [id number] 2.16.840.1.294870.3.579.2 .1244 1996 Unknown [id number] 2.16.840.1.974100.3.579.2 .1244 1996 Unknown [id number] 2.16.840.1.762620.3.579.2 .1244 Private Health Insurance [id number] Unknown [id number] 2.16.840.1.413006.3.579.2 .462 Unknown [id number] 2.16.840.1.882288.3.579.2 .462 Unknown [id number] 2.16.840.1.995004.3.579.2 .462 Unknown [id number] 2.16.840.1.701384.3.579.2 .462 Unknown [id number] 2.16.840.1.166859.3.579.2 .462 Unknown [id number] 2.16.840.1.423594.3.579.2 .462 Unknown [id number] 2.16.840.1.320979.3.579.2 .462 Unknown [id number] 2.16.840.1.779982.3.579.2 .462 Unknown [id number] 2.16.840.1.459538.3.579.2 .462 Unknown [id number] 2.16.840.1.800188.3.579.2 .462 Unknown [id number] 2.16.840.1.846945.3.579.2 .462 Unknown [id number] 2.16.840.1.115030.3.579.2 .462 Unknown [id number] 2.16.840.1.231224.3.579.2 .462 Unknown [id number] 2.16.840.1.783966.3.579.2 .462 Unknown [id number] 2.16.840.1.649358.3.579.2 .462 Unknown [id number] 2.16.840.1.945606.3.579.2 .462 Unknown [id number] 2.16.840.1.482990.3.579.2 .462 Social History Date Type Detail Facility Start: 08-06-2020 End: 08-07-2024 Tobacco smoking status NHIS Never smoker [facility] Start: 08-06-2020 End: 10-27-2022 Tobacco use and exposure Never used [facility] Start: 08-06-2020 End: 08-07-2024 Alcohol intake Ex-drinker (finding) [facility] Start: 08-06-2020 History SDOH Alcohol Frequency 1 [facility] Start: 1996 Sex Assigned At Not on file A [facility] Start: 07-24-2021 End: 10-30-2024 Exposure to SARS-CoV-2 (event) Not sure [facility] Start: 11-01-2022 End: 01-29-2025 Feels safe at home Feels safe at home [facility] Work Phone: Start: 09-03-2022 End: 09-03-2022 Tobacco smoking consumption unknown [facility] Start: 1995 Sex Assigned At Female [facility] Start: 11-01-2022 End: 01-29-2025 Alcohol intake Lifetime non-drinker (finding) [facility] Work Phone: Start: 11-01-2022 End: 01-29-2025 Tobacco use panel [facility] Work Phone: Start: 06-30-2022 Gender identity Identifies as female gender (finding) [facility] Work Phone: Start: 11-01-2022 Sexual orientation Bisexual (finding ) [facility] Work Phone: Start: 11-01-2022 Sexual orientation Heterosexual (fin ding) [facility] Work Phone: How often to you hav e a drink containing alcohol? Never [facility] Start: 04-23-2022 Average Number of Drinks Not on file [facility] Start: 06-18-2020 End: 08-16-2024 Sex Female (finding) [facility] NEGATED: Highlighted row - - [facility] Work Phone: NEGATED: Highlighted row [facility] NEGATED: Highlighted row Not [facility] Goals Date Patient Goal Desired Activity /State Functional Status Date Assessment Result Facility 01-29-2025 Patient Health Questionnaire 2 item (PHQ-2) [Reported] [facility] Work Phone: 10-30-2024 Patient Health Questionnaire 2 item (PHQ-2) [Reported] [facility] Work Phone: 09-11-2024 Patient Health Questionnaire 2 item (PHQ-2) [Reported] [facility] Work Phone: 07-24-2024 Functional status Ambulates [facility] Work Phone: NEGATED: Highlighted row Functional performance Functional status health issues are not documented Disease [facility] Work Phone: Mental Status Date Assessment Result Facility 08-01-2024 Cognitive function Level Of Cons ciousness Awake;Alert;Appropriate ;Follows Commands [facility] Work Phone: 07-24-2024 Cognitive function Voice/Name [facility] Work Phone: NEGATED: Highlighted row Cognitive function [Interpretation] Cognitive status health issues are not documented Disease [facility] Work Phone: Clinical Notes 10-02-2020 to 01-29-2025 Ashlyn Gtaes PA-C - 01/29/2025 3:00 PM Joan Gates PA-C - 10/30/2024 1:20 PM Joan Gates PA-C - 09/11/2024 9:40 AM EDTSeneida Guzman - 08/07/2024 9:00 AM EDT Note Date & Type Note Facility 01-29-2025 History of Present illness Narrative Subjective Patient ID: Yemi Morejon is a 29 y.o. female who presents for Follow-up (6 MONTH F/U WITH LABS ([facility]). ) HPI LABS Med check HTN- on [...] possible BIPAP Preventative testing PAP - [facility] - mammo - suggest age 40 (mom [...] Behavior: Behavior normal. Testing Labs done at [place] Dec 2024 CMP -glucose 138* Rest - [...] FU in 6 mo with labs at [facility] fasting and med check [1] Patient [...] for this visit. documented in this encounter [facility] Work Phone: 10-30-2024 History of Present illness [...] been on/off adipex Preventative [facility] PAP - [facility] - visit is set for tomorrow mammo [...] for this visit. documented in this encounter [facility] Work Phone: 09-11-2024 History of Present illness Narrative Subjective Patient ID: Yemi Morejon is a 29 y.o. female who presents for Follow-up (SLEEP STUDY DONE LAST WEEK ) [facility] FU sleep study Severe BEST APAP 5-15 [...] and has been on/off adipex Preventative testing [facility] - [facility] - visit is set for [...] F2 F CPAP compliance APAP supplies to [facility] [1] Patient Active Problem List Diagnosis [...] for this visit. documented in this encounter [facility] Work Phone: 08-07-2024 Evaluation + Plan note Associated Problem(s): Binge eating disorder As above. Orders: AMB REFERRAL TO BARIATRIC SURG [facility] 08-07-2024 Evaluation + Plan note Associated Problem(s): Benign essential hypertension As above. [facility] 08-07-2024 Evaluation + Plan note Associated Problem(s): Impaired glucose tolerance As above. [facility] 08-07-2024 History of Present illness Narrative Nurse [...] and she has a call into her quality facilitator, is frustrated because she's been trying for [...] MADDIE Tuttle 08/07/2024 documented in this encounter [facility] 08-07-2024 Miscellaneous Notes Associated Problem(s): Binge eating disorder As above. Orders: AMB REFERRAL TO BARIATRIC SURG Associated Problem(s): Benign essential hypertension As above. Associated Problem(s): Impaired glucose tolerance As above. documented in this encounter [facility] 07-30-2024 History of Present illness Narrative Subjective Patient ID: Yemi Morejon is a 29 y.o. female who presents for Hospital Follow-up (HOSPITAL DISCHARGE 07/24/24 [facility] - PALPITATIONS, A.FIB ([place]) PATIENT CONTINUES TO HAVE HEART PALPITATIONS - APPOINTMENT SCHEDULED WITH [facility] 08/14/24. ). HPI F/U AFTER [...] . Has F/U. documented in this encounter [facility] Work Phone: 07-24-2024 Note [facility] Medical Records Department [address] [place] [address] Discharge Summary 07/24/24 1220 MR#: [id number] Acct: [id number] Name: YEMI JC Rep #: [id number] : 1995 29 From: Nirmala Arenas DO PCP: JOHN Ramirez Status:[facility] Prov[facility] Date of Admission: 07/23/24 Date of Discharge: 07/24/24 Primary Care Physician: JOHN Ramirez Consultations 07/22/24 22:56 Consult: Cardiology Routine Consulting Provider: [facility] Reason for Consult: New-onset AFIB with [...] 29-year-old white female who presents emergency department [facility] on 07/22/2024 with palpitations, racing heart, and [...] had recent travel prior to presentation for [employer]. She stopped taking the stimulant 2 days [...] exertion Essential hypertension (more content not included)... [facility] 07-23-2024 Evaluation note Diagnosis Onset Date Resolution [...] Atrial fibrillation inactive August 02, 2024 8:58am [facility] Work Phone: 1(649) 871-128201-22-2025 History of Present illness Narrative* Ashlyn Gates [...] been on/off adipex Preventative testing PAP - [facility] - visit is set for [...] normal. Behavior: Behavior normal. Testing Labs at [facility] CBC - WNL CMP -glucose 113* -rest approp Mag 1.9 Iron 64 Ferritin 19 Lipid -tchol 228* -TG 170 -HDL 52 -LDL 142* B12 683 Labs at [facility] November 2023 CBC -hgb 11.9* - rest approp CMP -glucose 109* - rest approp Hgba1c 5.2 Mag 2.0 Iron 51 (50-170) Iron sat 11.9* Ferritin 10 (8-252) Lipid -tchol 223* -TG 144 -HDL 47 -LDL 147* B12 339 TSH/free t4 - WNl Labs at [facility] Apr 2023 Lipid -tchlo 198 -TG 86 -HDL 45 -LDL 136* CMP -glucose 119* -rest approp Ferritin 22 Iron 52 CBC - approp B12 397 Hgba1c 5.1 Labs at [facility] October 2022 CMP -glucose 102 -rest approp [...] FU in 6 mo with labs at [place] documented in this [facility] Work Phone: 1(146) 878-696812-20-2024 Evaluation + Plan note* Assessment & Plan [...] 1 capsule by mouth daily every morning. Electronic Payment and Services (EPS) [id number] History of Present illness Narrative* Emmie Hesham [...] for dizziness and headaches. * Fabi Giraldo, TRAVEL REGISTERED NURSE PACU-CAMP NURSE - 05/17/2024 9:40 AM EST Chief Complaint [...] plan. MADDIE Tuttle 05/17/2024 documented in this [facility]12-20-2024 Miscellaneous Notes* Assessment & Plan Note - [...] mouth daily every morning. [facility] + Plan note * Assessment [...] 1 capsule by mouth daily every morning. [facility]-13-20[facility] History of Present illness Narrative* Kim [...] rapid heart rate while taking [facility]. [facility] advised to hold [...] plan. MADDIE Tuttle 04/10/2024 documented in this [facility]11-13-2024 Miscellaneous Notes* Assessment & Plan Note - [...] mouth daily every morning. documented in this [facility]10-10-2024 History of Present illness Narrative* Abeba Hudson [...] she is looking into different counselors in [place], she has also started viibryd and feels [...] Exercise: just signed up with co-worker at [employer]. Barriers: binge eater, emotional eating She has [...] plan. MADDIE Tuttle 03/07/2024 [facility] History of Present illness Narrative* Ashlyn [...] been on/off adipex Preventative testing PAP - [facility] - visit is set for tomorrow mammo - suggest age 40 colonoscopy - suggest age 45-50 DEXA - suggest age 50-55 Fall - Neg November 2023 PHQ2 - Neg November 2023 Patient Active Problem List Diagnosis Acanthosis nigricans Benign essential hypertension Chronic low back pain Fibromyalgia Degeneration of intervertebral disc of lumbar region Depression, major, single episode, mild ([facility]) Dyspepsia JESSICA (generalized anxiety disorder) Glucose intolerance (impaired glucose tolerance) Hypercholesterolemia Low ferritin Low vitamin B12 level Lumbar radiculitis Lumbosacral radiculitis 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 [...] FU in 6 mo with labs at [place] fasting and med check documented in this [facility] Work Phone: 1(616) 392-114507-12-2024 History of Present illness Narrative* Lennie Garcia [...] reviewed and are negative. * Fabi Giraldo APRN-CAMP NURSE - 12/08/2023 2:20 PM EDT Chief Complaint [...] Exercise: just signed up with co-worker at [employer]. Barriers: binge eater, emotional eating She has [...] plan. MADDIE Tuttle 12/08/2023 documented in this [facility]04-11-2024 History of Present illness Narrative* Lennie Garcia [...] she is looking into different counselors in [place], she hasalso started viibryd and feels like [...] plan. MADDIE Tuttle 09/07/2023 [facility] History of Present illness Narrative* MADDIE Merida - 08/12/2023 8:10 AM EDT [facility] MADDIE Merida Visit Note - [...] and Nyquil without much relief; no other ogxf-qum-qypwalq medications or home remedies for symptom management. [...] Musculoskeletal: Grossly normal; appropriate for age. Integumentary: [place], warm, dry, and intact. No rashes or [...] and answered. MADDIE Merida Advanced Practice Provider [facility] documented in this [facility] Work Phone: [phone]) 946-913012-28-2023 History of Present illness Narrative* Kim Guzman [...] Tuttle 05/25/2023 documented in this [id number] History of Present illness Narrative* Ashlyn Gates PA-C - 05/23/2023 2:00 PM EST Subjective Patient ID: Yemi Morejon is a 28 y.o. female who presents for Follow-up (6 MONTH FOLLOW UP + LABS @ [facility] SCANNED IN MEDIA. /PT WANTS TO [...] and has been on/off adipex Preventative testing [facility] - [facility] - visit is set for [...] COLONOSCOPY 11/16/2017 DR. PLEITEZ; NORMAL; REPEAT AT [facility] AGE ESOPHAGOGASTRODUODENOSCOPY 11/16/2017 DR. PLEITEZ; Mild chronic [...] approp B12 397 Hgba1c 5.1 Labs at [facility] October 2022 CMP -glucose 102 -rest approp [...] Fibromyalgia M79.7 Depression, major, single episode, mild (CMS/[facility]) F32.0 Relevant Medications vilazodone (Viibryd) [...] (BMI) of 60.0 to 69.9 in adult (CMS/[facility]) E66.1, Z68.44 Other Visit Diagnoses Codes Decreased libido R68.82 FU in 1-2 mo with med check /mood check FU in 6 mo with labs at [place] fasting and med check documented in this [facility] Work Phone: 1(305) 151-772009-20-2023 History of Present illness Narrative* Kim Guzman [...] and cook. Exercise: has been going to [employer] but has been inconsistent due to work [...] plan. MADDIE Tuttle 02/15/2023 documented in this [facility]08-16-2023 History of Present illness Narrative* On a scale of 0 to 10, the patient rates the pain at 0. * Controlled Substance: * I have personally reviewed the OARRS report for YEMI JC. I have considered the risks ofabuse, dependence, addiction and diversion. [facility] Work Phone: [phone]) [phone] History of Present illness NarrativeOn a scale of 0 to 10, the patient rates the pain at 0.[facility] Work Phone: [phone]) [phone] History of Present illness Narrative* Lennie Garcia [...] reviewed and are negative. * Fabi Giraldo APRN-CAMP NURSE - 11/24/2022 3:00 PM EDT Chief Complaint [...] lists, etc. Exercise: she is going [place] a [place], plans to get outside [...] plan. MADDIE Tuttle 11/24/2022 documented in this [facility]06-06-2023 History of Present illness Narrative* Ashlyn Gates [...] been on/off adipex Preventative testing PAP - [facility] - visit is set for [...] HISTORY 02/15/2019 Esophagogastroduodenoscopy OTHER SURGICAL HISTORY 02/15/2019 [place] tooth extraction OTHER SURGICAL HISTORY 09/25/2019 Colonoscopy [...] normal. Behavior: Behavior normal. Testing Labs [facility] October 2022 CMP -glucose 102 -rest approp [...] FU in 6 mo with labs at [facility] - fasting and med check documented in this [facility] Work Phone: [phone]) 913-524505-31-2023 History of Present illness Narrative* Gwendolyn Wallace [...] before medication.. Exercise: she is going [place] week, plans to get outside [...] plan. MADDIE Tuttle 10/26/2022 documented in this [facility]04-04-2023 History of Present illness Narrative* Kim Guzman [...] feel like she is receiving benefit with [employer] although still has some days when she wants to eat everything in sight and admits is undera lot of stress on those days, she is seeing her counselor every couple weeks. Exercise: she is going [place] [employer] twice a week. Barriers: binge eater, emotional [...] plan. MADDIE Tuttle 08/30/2022 documented in this [facility]02-28-2023 History of Present illness Narrative* Kim Megan [...] reviewed and are negative. * Fabi Giraldo, MECCA-CAMP NURSE - 07/26/2022 2:20 PM EST Chief Complaint [...] be beneficial. Exercise: she is going [place] twice a week. Barriers: binge eater, emotional [...] plan. MADDIE Tuttle 07/26/2022 documented in this [facility]01-31-2023 History of Present illness Narrative* Kim Guzman [...] other day. Exercise: she is going [place] a week. Barriers: binge eater, emotional [...] plan. MADDIE Tuttle 06/28/2022 documented in this [facility]11-29-2022 History of Present illness Narrative* Lennie Garcia [...] plan. MADDIE Tuttle 04/26/2022 documented in this [facility]10-27-2022 History of Present illness Narrative* Meena Ayala [...] reviewed and are negative. * Fabi Giraldo, TRAVEL REGISTERED NURSE PACU-CAMP NURSE - 03/24/2022 3:20 PM EDT Chief Complaint [...] plan. MADDIE Tuttle 03/24/2022 documented in this [facility]09-29-2022 History of Present illness Narrative* Lennie Garcia [...] plan. MADDIE Tuttle 02/24/2022 documented in this [facility]08-31-2022 History of Present illness Narrative* Nkechi Headley [...] reviewed and are negative. * Fabi Giraldo, TRAVEL REGISTERED NURSE PACU-CAMP NURSE - 01/26/2022 3:00 PM EDT Chief Complaint [...] since last visit, Exercise: is going [place] [employer] and works out for an hour 2-3 [...] plan. MADDIE Tuttle 01/27/2022 [facility] History of Present illness Narrative* On a scale of 0 to 10, the patient rates the pain at 4. * Pain Location: Low Back Pain and across both sides. * Pain Quality: Aching, Sharp and Spasm. * Pain Radiation: into bilat gluteals and down thighs mid way. * Sensory/ Motor: Numbness, Pins and [place] and Bilat lower legs at ankles, feet , hands and arms ongoing issue. * Timing/Duration: Constant and > 12 weeks duration. * Controlled Substance: * I have personally reviewed the OARRS report for YEMI JC. I have considered the risks ofabuse, dependence, addiction and diversion. * Exacerbating Factors: sitting. [facility] Work Phone: 1([phone]) [phone] History of Present illness Narrative* Lennie Garcia [...] scale is accurate. Exercise: is going to [employer] and works out for an hour 2-3 days a week, does both cardio and weight training, on days she is not at [employer] she is at least trying to get [...] plan. MADDIE Tuttle 11/25/2021 documented in this [facility]06-01-2022 History of Present illness Narrative* Nicolette Lala [...] and being more consistent with diet, discussed [place], patient must lose 12 pounds this [...] plan. MADDIE Tuttle 10/27/2021 documented in this [facility]05-04-2022 History of Present illness Narrative* Nicolette Lala [...] plan. MADDIE Tuttle 09/29/2021 documented in this [facility]04-07-2022 History of Present illness Narrative* Yaa Chinchilla [...] medication for the day, is going to [employer] [facility] prescription today, and just got off [...] plan. MADDIE Tuttle 09/02/2021 documented in this [facility]03-08-2022 History of Present illness Narrative* Nicolette Lala [...] plan. MADDIE Tuttle 08/03/2021 documented in this [facility]02-08-2022 History of Present illness Narrative* MADDIE Tuttle [...] weight management session. [place] [facility] in this [facility] History of Present illness Narrative* On [...] Pain Management: * OPIOID RISK SCORE=2. [facility]: [phone]) [phone] Chief complaint Narrative - Reported* An interactive [...] NASAL CONGESTION,WHEEZING,AND SHORTNESS OF BREATH. NO TEMP. -[facility] Work Phone: [phone]) [phone] History of Present illness Narrative* Patient presents [...] - stable - following with dr ree PEÑA-[facility] Work Phone: 1(454) 850-956612-03-2021 History of Present illness Narrative* Fabi Irizarryhart, MECCA-CAMP NURSE - 04/30/2021 2:20 PM EST Chief Complaint [...] reviewed and are negative. documented in this [facility]07-27-[facility]21 History of Present illness Narrative* MADDIE Tuttle [...] reviewed and are negative. documented in this [facility]07-07-2021 History of Present illness Narrative* Zenia Falcon [...] Social Gatherings with Friends and Family: Attends [employer] Services: Active Member of Clubs or Organizations: [...] Zenia Falcon PA-C 12/02/2020 documented in this [facility]07-07-2021 Instructions* Patient Instructions* Zenia Falcon PA-C - [...] Where can you learn more? Go to [email or web address]. Enter K848 in the search box to learn more about 'Urinary Tract Infection (UTI) in Women: Care Instructions.' Interested in seeing a video go to [email or web address] to see all video content. Current as of: July 08, 2020 Content Version: 12.9 [employer]. Care instructions adapted under license by your healthcare professional. If you have questions about a medical condition or this instruction, always ask your healthcare professional. [employer] disclaims any warranty or liability for your use of this information. documented in this [facility]06-08-2021 History of Present illness Narrative* Zenia Falcon [...] Zenia Falcon PA-C 11/03/2020 documented in this [facility]06-08-2021 Instructions* Patient Instructions* Zenia Falcon PA-C - [...] care for yourself at home? Take an alsz-hwx-onomfru pain medicine, such as acetaminophen (Tylenol), ibuprofen (Advil, Motrin),or naproxen (Aleve). Read and follow all instructions on the label. If the doctor prescribed antibiotics, take them as directed. Do not stop taking them just because you feel better. You need to take the full course of antibiotics. Be careful when taking htbd-rcn-lmbmnst cold or flu medicines and Tylenol at [...] Where can you learn more? Go to [email or web address]/[email or web address]. Enter I933 in the search box to learn more about 'Sinusitis: Care Instructions.' Interested in seeing a video go to [email or web address] to see all video content. Current as of: April 29, 2020 Content Version: 12.9 [employer]. Care instructions adapted under license by your healthcare professional. If you have questions about a medical condition or this instruction, always ask your healthcare professional. [employer] disclaims any warranty or liability for your use of this information. documented in this [facility]05-07-2021 History of Present illness Narrative* Charlotte Farah [...] reviewed and are negative. [facility]* Diagnosis Stress- Primary Other psychological or physical stress, not elsewhere classified Class 3 severe obesity with serious comorbidity and body mass index (BMI) of 60.0 to 69.9 in adult, unspecified obesity type [facility]* Diagnosis Acute maxillary sinusitis, recurrence not specified- Primary [facility]* Diagnosis Acute cystitis with hematuria- Primary Acute cystitis documented [facility]* Diagnosis Class 3 severe obesity with serious comorbidity and body mass index (BMI) of 60.0 to 69.9 in adult, unspecified obesity type [facility] Diagnosis Class 3 severe obesity with serious comorbidity and body mass index (BMI) of 60.0 to 69.9 in adult, unspecified obesity type documented [facility]* Diagnosis Benign essential hypertension- Primary Essential hypertension, benign Class 3 severe obesity with serious comorbidity and body mass index (BMI) of 60.0 to 69.9 in adult, unspecified obesity type [facility]* Diagnosis Benign essential hypertension- Primary Essential hypertension, benign Class 3 severe obesity with serious comorbidity and body mass index (BMI) of 60.0 to 69.9 in adult, unspecified obesity type [facility]* Diagnosis Benign essential hypertension- Primary Essential hypertension, benign Class 3 severe obesity with serious comorbidity and body mass index (BMI) of 60.0 to 69.9 in adult, unspecified obesity type [facility]* Diagnosis Benign essential hypertension- Primary Essential hypertension, benign Class 3 severe obesity with serious comorbidity and body mass index (BMI) of 60.0 to 69.9 in adult, unspecified obesity type [facility]* Diagnosis Benign essential hypertension- Primary Essential hypertension, benign Class 3 severe obesity with serious comorbidity and body mass index (BMI) of 60.0 to 69.9 in adult, unspecified obesity type [facility]* Diagnosis Class 3 severe obesity with serious comorbidity and body mass index (BMI) of 60.0 to 69.9 in adult, unspecified obesity type [facility]* Diagnosis Benign essential hypertension- Primary Essential hypertension, benign BMI 50.0-59.9, adult Body Mass Index 50.0-59.9, adult [facility] Diagnosis BMI 50.0-59.9, adult Body Mass Index 50.0-59.9, adult [facility]* Diagnosis Benign essential hypertension- Primary Essential hypertension, benign Metabolic syndrome Dysmetabolic Syndrome X Fatigue, unspecified type [facility]* Diagnosis Benign essential hypertension- Primary Essential hypertension, benign BMI 50.0-59.9, adult Body Mass Index 50.0-59.9, adult documented [facility] noteNo assessment information availableWMemorial Health [facility] Work Phone: Evaluation note* Diagnosis Binge eating disorder- Primary [facility]* Diagnosis Binge eating disorder [facility] Diagnosis Binge eating disorder- Primary Benign essential hypertension Essential hypertension, benign [facility]* Diagnosis Onset Date Resolution Status Acute bronchitis, unspecified acute Influenza A acute [facility] Work Phone: Evaluation note* Diagnosis Binge eating disorder- Primary Benign essential hypertension Essential hypertension, benign [facility]* Diagnosis Hypercholesterolemia- Primary Pure hypercholesterolemia [...] in adult (CMS/HCC) documented in this encounter [facility] Work Phone: Evaluation note* Diagnosis Binge eating disorder- Primary Benign essential hypertension Essential hypertension, benign [facility]* Diagnosis Binge eating disorder- Primary Benign essential hypertension Essential hypertension, benign [facility]* Diagnosis Benign essential hypertension- Primary [...] myositis Decreased libido documented in this encounter [facility] Work Phone: Evaluation note* Diagnosis Binge eating disorder [facility]* Diagnosis Acute viral syndrome- Primary documented in this encounter [facility] Work Phone: Evaluation note* Diagnosis Binge eating disorder [facility]* Diagnosis Binge eating disorder- Primary Benign essential hypertension Essential hypertension, benign [facility]* Diagnosis Binge eating disorder, unspecified severity- Primary Benign essential hypertension Essential hypertension, benign [facility]* Diagnosis Binge eating disorder, unspecified severity- Primary [facility]* Diagnosis Benign essential hypertension- Primary [...] Generalized anxiety disorder documented in this encounter [facility] Work Phone: Evaluation note* Diagnosis Binge eating disorder, unspecified severity- Primary Binge eating disorder, unspecified severity [facility]* Diagnosis Glucose intolerance (impaired glucose [...] episode, mild (CMS-HCC) documented in this encounter [facility] Work Phone: Evaluation note* Diagnosis Paroxysmal atrial fibrillation (Multi)- Primary Atrial fibrillation Anxiety Anxiety state, unspecified Snoring Other dyspnea and respiratory abnormality Family history of sleep apnea Family history of other condition Morbid obesity with BMI of 60.0-69.9, adult (Multi) Glucose intolerance (impaired glucose tolerance) Impaired glucose tolerance test Benign essential hypertension Essential hypertension, benign Palpitations documented in this encounter [facility] Work Phone: Evaluation note* Diagnosis Binge eating disorder, unspecified severity- Primary Binge eating disorder, unspecified severity BMI 60.0-69.9, adult- Primary Body Mass Index 60.0-69.9, adult Binge eating disorder, unspecified severity Atrial fibrillation, unspecified type Benign essential hypertension Essential hypertension, benign Impaired glucose tolerance Impaired glucose tolerance test [facility] Diagnosis BEST (obstructive sleep apnea)- Primary Obstructive sleep apnea (adult) (pediatric) Depression, major, single episode, mild ([facility]-H[facility]) JESSICA (generalized anxiety disorder) Generalized anxiety disorder Paroxysmal atrial fibrillation (Multi) Atrial fibrillation Benign essential hypertension Essential hypertension, benign Class 3 severe obesity due to excess calories with serious comorbidity and body mass index (BMI) of 60.0 to 69.9 in adult Binge eating disorder, unspecified severity documented in this encounter [facility] Work Phone: Evaluation note* Diagnosis BEST (obstructive sleep apnea)- Primary Obstructive sleep apnea (adult) (pediatric) JESSICA (generalized anxiety disorder) Generalized anxiety disorder Benign essential hypertension Essential hypertension, benign Paroxysmal atrial fibrillation (Multi) Atrial fibrillation Class 3 severe obesity due to excess calories with serious comorbidity and body mass index (BMI) of 60.0 to 69.9 in adult documented in this encounter [facility] Work Phone: Evaluation note* Diagnosis Glucose intolerance [...] apnea (adult) (pediatric) documented in this encounter [facility] Work Phone: History of Present illness Narrative* On a scale of 0 to 10, the patient rates the pain at 3. * Pain Location: Low Back Pain. * Pain Quality: Stabbing. * Pain Radiation: nayely hips, buttocks. * Timing/Duration: Constant and > 12 weeks duration. -[facility] Work Phone: History of Present illness Narrative* ASHLYN GATES [facility] PATIENT THAT Presents today for 6 MONTHS [facility] LAB F/U. NO NEW COMPLAINTS * LIPIDS- DIET MODIFICATIONS DISCUSSED * ANXIETY/DEPRESSION- STABLE * FIBRO/BACK PAIN- FOLLOWS WITH PAIN MANAGEMENT. STABLE * B12- STABLE * HTN- STABLE -[facility] Work Phone: History of Present [...] 45-50 * DEXA - suggest age 50-55 -[facility] Work Phone: History of Present [...] 45-50 * DEXA - suggest age 50-55 [facility] Work Phone: History of Present [...] * 3 Preventative testing * PAP - [facility] - last exam was september * mammo - suggest age 40 * colonoscopy - suggest age 45-50 * DEXA - suggest age 50-55 [facility] Work Phone: Reason for referral (narrative)No reason for referral information availableWMemorial Health [facility] Work Phone: Summary Purpose Family History [...] No September 03, 2022 7:57pm Power of Wax Molder No September 03 7:57pm Advance Directive Response Recorded Date/ Time Living Will No September 03, 2022 6:57pm Power of Wax Molder No September 03 6:57pm Advance Directive Response Recorded Date/ Time Living Will No August 01, 2024 7:44am Do you have a Healthcare Power of Wax Molder? No August 01, 2024 7:44am Living Will No September 03, 2022 7:57pm Do you have a Healthcare Power of Wax Molder? No September 03, 2022 7:57pm Living Will No July 23, 12:07am Do you have a Healthcare Power of Wax Molder? No July 23, 2024 12:07am History of Present Illness * Fabi Giraldo, MECCA-CAMP NURSE - 08/06/2020 3:40 PM EST Chief Complaint [...] with 1/2tab until tolerating, increase water, discussed [place] and minimum weight loss goal of [...] unspecified obesity type Charlotte Farah MD [address] [place] [address] Specialty Diagnoses / Procedures Referred By Contac t Referred To Contact Diagnoses Class 3 severe obesity with serious comorbidity and body mass index (BMI) of 60.0 to 69.9 in adult, unspecified obesity type Fabi Giraldo APRN-CAMP NURSE [address] [place] [address] Referral ID Status Reason Start Date Expiration Date Visits Re quested Visits Authorized [id number] Closed 1 1 Referral ID Status Reason Start Date Expiration Date Visits Re quested Visits Authorized [id number] Closed 1 1 Referral ID Status Reason Start Date Expiration Date Visits Re quested Visits Authorized [id number] Closed 1 1 Referral ID Status Reason Start Date Expiration Date Visits Re quested Visits Authorized [id number] Closed 1 1 Referral ID Status Reason Start Date Expiration Date Visits Re quested Visits Authorized [id number] Closed 1 1 Referral ID Status Reason Start Date Expiration Date Visits Re quested Visits Authorized [id number] Closed 1 1 Referral ID Status Reason Start Date Expiration Date Visits Re quested Visits Authorized [id number] Closed 1 1 Specialty Diagnoses / Procedures Referred By Contac t Referred To Contact Diagnoses BMI 50.0-59.9, adult Fabi Giraldo APRN-CAMP NURSE [address] [place] [address] Referral ID Status Reason Start Date Expiration Date Visits Re quested Visits Authorized [id number] Closed 1 1 Referral ID Status Reason Start Date Expiration Date V isits Requested Visits Authorized [id number] Pending Review 1 1 Specialty Diagnoses / Procedures Referred By Neyda hensley Referred To Contact Diagnoses Low vitamin B12 level Ashlyn Gates PA-C [address] [place] [address] Referral ID Status Reason Start Date Expiration Date V isits Requested Visits Authorized [id number] Pending Review 12/18/2023 12/17/2024 1 1 Chief [...] need a RF on tizanidine send to [facility]. * This is a 26-year-old female here [...] 12:20pm chest pain,sob,recent afib August 01 6:40am [facility] / AFIB August 02, 2024 8:58 am [...] section and content) DATE CREATED AUTHOR 11/21/2017 [facility] DATE CREATED AUTHOR AUTHOR'S ORGANIZ ATION 09/18/2018 [facility] DATE CREATED AUTHOR AUTHOR'S ORGANIZ ATION 07/13/2022 [facility] DATE CREATED AUTHOR AUTHOR'S ORGANIZ ATION 01/12/2023 [facility] DATE CREATED AUTHOR AUTHOR'S ORGANIZ ATION 01/14/2023 [facility] DATE CREATED AUTHOR AUTHOR'S ORGANIZ ATION 08/05/2024 [facility] nter DATE CREATED AUTHOR AUTHOR'S ORGANIZ ATION 08/09/2024 [facility] DATE CREATED AUTHOR AUTHOR'S ORGANIZ ATION 09/05/2024 [facility] DATE CREATED AUTHOR AUTHOR'S ORGANIZ ATION 01/31/2025 [facility] DATE CREATED AUTHOR AUTHOR'S ORGANIZ ATION 02/19/2025 [facility] Reason for Visit (unrecogniz ed section and content) Reason Comments Weight Gain MWL #1 Hypertension Status Reason Specialty Diagnoses / Procedures Referred By Contact Referred To Contact New Request Family Medicine Diagnoses Morbid obesity Osmar Vargas MD [address] [place] [address] Fabi Giraldo APRN-CNP [address] [place] [address] Reason Comments Weight Management Session Adipex #2 [...] 6 MONTH FOLLOW UP + LABS @ [facility] SCANNED IN MEDIA. PT WANTS TO SEE ABOUT CHANGING HER DEPRESSION/ ANXIETY MEDS. FEELS LIKE HER SEX DRIVE IS DECREASING Reason Comments URI CHEST CONGESTION, CO UGHING UP BROWN MUCUS , SOB, X 2 DAYS DAYQUIL NO RELIEF Reason Comments Fatigue Eating Disorder Reason Comments Weight Management Session Discuss Vyvans e, was having rapid heart rate while taking medication. Per [employer] message Dr. Farah advised to hold medication and make appointment to discuss Fatigue Reason Comments Follow-up 6 MO F/U LABS-[facility]; NO COMPLAINTS TODAY Specialty Diagnoses / Procedures Referred By Contac t Referred To Contact Diagnoses Low vitamin B12 level Ashlyn Gates, PAEulaliaC [address] [place] [address] Referral ID Status Reason Start Date Expiration Date V isits Requested Visits Authorized [id number] Pending Review 12/18/2023 12/17/2024 1 1 Reason Comments Eating Disorder Reason Comments Follow-up 3 MO F/U WITH LABS N O COMPLAINTS Reason Comments Hospital Follow-up HOSPITAL DISCHARGE [facility] - [facility]ATIONS, A.FIB ([facility]) PATIENT CONTINUES TO HAVE HEART PALPITATIONS - APPOINTMENT SCHEDULED WITH [facility] 08/14/24. Reason Comments Follow-up SLEEP STUDY DONE LAS T WEEK Reason Comments Follow-up Discuss cpap+ breath ing Reason Comments Follow-up 6 MONTH F/U WITH LAB S ([facility]). Care Teams (unrecognized sec tion and content) Shear Setter Relationship Specialty Start Date End Date Ashlyn Gates PA [address] [place] [address] PCP - General Physician Diesel Locomotive Crane Operator 06/18/20 Shear Setter Relationship Specialty Start Date End Date Ashlyn Gates PA [address] [place] [address] PCP - General Physician Diesel Locomotive Crane Operator 06/18/20 Shear Setter Relationship Specialty Start Date End Date Ashlyn Gates PA [address] [place] [address] PCP - General Physician Diesel Locomotive Crane Operator 06/18/20 Shear Setter Relationship Specialty Start Date End Date Ashlyn Gates PA [address] [place] [address] PCP - General Physician Diesel Locomotive Crane Operator 06/18/20 Shear Setter Relationship Specialty Start Date End Date Ashlyn Gates PA [address] [place] [address] PCP - General Physician Diesel Locomotive Crane Operator 06/18/20 Shear Setter Relationship Specialty Start Date End Date Ashlyn Gates PA [address] [place] [address] PCP - General Physician Diesel Locomotive Crane Operator 06/18/20 Shear Setter Relationship Specialty Start Date End Date Ashlyn Gates PA [address] [place] [address] PCP - General Physician Diesel Locomotive Crane Operator 06/18/20 Shear Setter Relationship Specialty Start Date End Date Ashlyn Gates PA [address] [place] [address] PCP - General Physician Diesel Locomotive Crane Operator 06/18/20 Shear Setter Relationship Specialty Start Date End Date Ashlyn Gates PA [address] [place] [address] PCP - General Physician Diesel Locomotive Crane Operator 06/18/20 Shear Setter Relationship Specialty Start Date End Date Ashlyn Gates PA [address] [place] [address] PCP - General Physician Diesel Locomotive Crane Operator 06/18/20 Shear Setter Relationship Specialty Start Date End Date Ashlyn Gates PA [address] [place] [address] PCP - General Physician Diesel Locomotive Crane Operator 06/18/20 Shear Setter Relationship Specialty Start Date End Date Ashlyn Gates PA [address] [place] [address] PCP - General Physician Diesel Locomotive Crane Operator 06/18/20 Shear Setter Relationship Specialty Start Date End Date Ashlyn Gates PA [address] [place] [address] PCP - General Physician Diesel Locomotive Crane Operator 06/18/20 Shear Setter Relationship Specialty Start Date End Date Ashlyn Gates PA [address] [place] [address] PCP - General Physician Diesel Locomotive Crane Operator 06/18/20 Shear Setter Relationship Specialty Start Date End Date Ashlyn Gates PA [address] [place] [address] PCP - General Physician Diesel Locomotive Crane Operator 06/18/20 Team Status: Active Member [...] Schroeder DO Attending Provider, Referring Provider Active Shear Setter Relationship Specialty Start Date End Date Ashlyn Gates PA-C [address] [place] [address] PCP - General 01/29/19 Shear Setter Relationship Specialty Start Date End Date Ashlyn Gates PA [address] [place] [address] PCP - General Physician Diesel Locomotive Crane Operator 06/18/20 Shear Setter Relationship Specialty Start Date End Date Ashlyn Gates PA [address] [place] [address] PCP - General Physician Diesel Locomotive Crane Operator 06/18/20 Shear Setter Relationship Specialty Start Date End Date Ashlyn Gates PA-C [address] [facility] [place] [address] PCP - General 01/29/19 Team Status: Inactive Member Role Status Dates JOHN Gutierrez Primary Care Pr ovider, Attending Provider, Referring Provider Active Shear Setter Relationship Specialty Start Date End Date Ashlyn Gates PA [address] [place] [address] PCP - General Physician Diesel Locomotive Crane Operator 06/18/20 Shear Setter Relationship Specialty Start Date End Date Ashlyn Gates PA-C [address] [place] [address] PCP - General 01/29/19 Shear Setter Relationship Specialty Start Date End Date Ashlyn Gates PA [address] [place] [phone] PCP - General Physician Diesel Locomotive Crane Operator 06/18/20 Shear Setter Relationship Specialty Start Date End Date Ashlyn Gates PA [address] [place] [phone] PCP - General Physician Diesel Locomotive Crane Operator 06/18/20 Shear Setter Relationship Specialty Start Date End Date Ashlyn Gates PA-C [address] [place] [address] PCP - General 01/29/19 Shear Setter Relationship Specialty Start Date End Date Ashlyn Gates PA-C [address] [place] [address] PCP - General 01/29/19 Shear Setter Relationship Specialty Start Date End Date Ashlyn Gates PA-C [address] [place] [address] PCP - General 01/29/19 Miguelina Ramos CMA Microwave Oven AssemblerDirector Investor Relations 07/25/24 Shear Setter Relationship Specialty Start Date End Date Ashlyn Gates PA [address] [place] [phone] PCP - General Physician Diesel Locomotive Crane Operator 06/18/20 Team Status: Inactive Member [...] Provider Active Start: July 23, 2024 Heather Vizacino FILE SYSTEM INSTALLER, FILE SYSTEM INSTALLER-C Other Provider Active Start : July 23, [...] 2024 End: July 24, 2024 Heather Vizcaino FILE SYSTEM INSTALLER, FILE SYSTEM INSTALLER-C Other Provider Active Start : July 23, [...] Active Start: July 24, 2024 Heather Vizcaino FILE SYSTEM INSTALLER, FILE SYSTEM INSTALLER-C Other Provider Active Start : July 24, [...] Active Start: July 24, 2024 Heather Vizcaino FILE SYSTEM INSTALLER, FILE SYSTEM INSTALLER-C Other Provider Active Start : July 24, [...] August 15, 2024 End: August 15, 2024 Shear Setter Relationship Specialty Start Date End Date Ashlyn Gates PA-C [address] [place] [address] PCP - General Internal Medicine 09/03/24 Shear Setter Relationship Specialty Start Date End Date Ashlyn Gates PA-C [address] [place] [address] PCP - General Internal Medicine 09/03/24 Shear Setter Relationship Specialty Start Date End Date [place] Ashlyn Ortiz PA-C [address] [place] [address] PCP - General Internal Medicine 09/03/24 Team [...] BE BASED ON THE PRIMARY CLINICAL RECORDS. [employer] [facility]. provides no warranty or guarantee of the accuracy or completeness of information in this document.
== END | disposition home or self-care (01) ==
LOC: SL 19:49
PROVIDERS: PCP Physician Assistant Medical; Referring Provider Internal Medicine Pulmonary Disease; Visit Provider Internal Medicine Pulmonary Disease
DX: G47.33 Obstructive sleep apnea (adult) (pediatric) (principal)
CPT/HCPCS: 95811